=== PATIENT | female | born 1995 | race Caucasian/White ===

== ENCOUNTER 2021-05-27 19:05 | Inpatient (IN) | payer MEDICAID, SELFPAY ==
[2021-05-27 19:51] VITALS: BP 128/71; PULSE 95; O2SAT 98
[2021-05-27 20:13] VITALS: TEMP 37.7
[2021-05-27] MEDS: Lactated Ringers 1,000 ML 50 ML IV (20:17)
[2021-05-27] MEDS: 0.9% Normal Saline Single 100 ML IV.SOLN. INTRA-UTER (20:29)
--- NOTE | 2021-05-27 20:33 | PCM.HP.OB ---
HPI - General General Date of Admission: 05/27/21 HPI Narrative CHELI STEWART, is a 26 F @ 40.1 weeks who presents for IOL due to GDMA1- well controlled. Maternal Data Information Final BRODERICK: 05/26/21 Final BRODERICK Source: US <20 weeks Gestational age: 40.1 PFSH PFSH Allergy/AdvReac Type Severity Reaction Status Date / Time No Known Allergies Allergy Verified 05/27/21 20:31 Social History Smoking Status: Current every day smoker NST FHR Rate Baby A Baseline: 140 Variability:: Moderate Accelerations:: 15 x 15 Decelerations:: None NST Reactive:: Yes FHR Category:: Category I Uterine Activity:: occasional Vital Signs Vital Signs Vital Signs: 05/27/21 19:51 05/27/21 20:13 Temperature 99.9 F H Pulse Rate 95 Blood Pressure 128/71 H BP Systolic 128 BP Diastolic 71 Pulse Ox 98 Physical Exam Const alert and oriented x3 General Appearance: cooperative HEENT normocephalic GI GI Narrative: Gravid, non tender to palpation. OB / External & Speculum: external exam normal Extremity normal to inspection Skin no rashes or lesions noted Neuro oriented x3 and CN's II-XII intact bilaterally Psych Appearance: grossly normal Labs Labs Labs: Blood Type Pending Antibody Screen Pending Hct Pending Hgb Pending Neisseria gonorrhoeae DNA (JOEL) Negative (Negative) Assessment & Plan (1) 40 weeks gestation of : (2) Gestational diabetes: QUALIFIERS: Gestational diabetes mellitus control: diet-controlled Trimester: third trimester Qualified Code(s): O24.410 - Gestational diabetes mellitus in , diet controlled PLAN: Admit to L&D Montior FHR/TOCO Epidural if requested for pain Monitor VS Anticipate HOLDER/CYTOTEC, once holder out will start pitocin monitor BS per protocol
[2021-05-27 20:38] VITALS: BMI 35.3
[2021-05-27 20:43] LABS: Absolute Lymphocyte Count 2.28 X10^3/uL (0.83-4.51); Absolute Neutrophil Count 6.4 X10^3/uL (2.0-7.7); Basophil# 0.02 X10^3/uL; Basophil% 0.2 % (0-1); Eosinophil# 0.09 X10^3/uL; Hematocrit 35.2 % (37-47); Hemoglobin 11.4 g/dL (12.0-15.0); Lymphocyte # 2.28 X10^3/ul (0.83-4.51); Lymphocyte % 24.5 % (19-41); Mean Corp Hgb Conc 32.4 g/dL (32-36); Mean Corpuscular Hgb 28.7 pg (27.0-32.0); Mean Corpuscular Volume 88.7 fL (81-99); Mean Platelet Vol. 10.6 fl (6.2-12.0); Monocyte# 0.52 X10^3/uL; Monocyte% 5.6 % (0-10); NRBC Flagged by Analyzer 0 % (0-5); Neutrophil # 6.35 X10^3/uL (2.7-7.7); Neutrophil % 68.1 % (47-70); Platelet Count 173 K/mm3 (150-450); RBC Distribution Width CV 15.4 % (11.6-14.6); Red Blood Count 3.97 M/mm3 (4.2-5.4); White Blood Count 9.3 K/mm3 (4.4-11.0)
[2021-05-27 20:45] LABS: Bedside Glucose 113 mg/dL (74-106)
[2021-05-27] MEDS: miSOPROStol 25 MCG TABLET PO (20:52)
[2021-05-27] MEDS: CLARIFY ORDER NOTE (20:54)
[2021-05-27 21:55] LABS: Bedside Glucose 106 mg/dL (74-106)
[2021-05-27] MEDS: Acetaminophen 500 MG Tablet PO (21:56)
[2021-05-27 22:06] VITALS: BP 114/66; PULSE 81; TEMP 37.2; O2SAT 98
[2021-05-27] MEDS: Lactated Ringers 500 ML 999 ML IV (22:31)
[2021-05-27 22:46] LABS: Bedside Glucose 89 mg/dL (74-106)
[2021-05-28] VITALS (51 sets, daily range): BP systolic 98–144; BP diastolic 57–92; PULSE 67–218; RESP 18; TEMP 36.2–37.3; O2SAT 92–100
[2021-05-28] MEDS: Penicillin G 3,000,000 Units 50 ML 100 UNITS IV ×4 (01:41→14:30)
[2021-05-28] MEDS: Oxytocin 30 units/NS 500 ml 30 UNITS/500 ML IV.SOLN IV (01:42)
[2021-05-28 04:16] LABS: Bedside Glucose 98 mg/dL (74-106)
[2021-05-28] MEDS: Acetaminophen 500 MG Tablet PO (05:44)
[2021-05-28 06:06] LABS: Bedside Glucose 84 mg/dL (74-106)
[2021-05-28] MEDS: Ondansetron 4 MG/2 ML Vial IV (07:47)
[2021-05-28 08:41] LABS: Bedside Glucose 96 mg/dL (74-106)
[2021-05-28] MEDS: Lactated Ringers 1,000 ML 250 ML IV (09:06)
[2021-05-28] MEDS: Lactated Ringers 500 ML 999 ML IV (09:26)
--- NOTE | 2021-05-28 12:46 | PCM.PN.BLA ---
Progress Note Patient uncomfortable with contractions. Called to bedside. Cervix anterior lip, fetus +1station, bladder emptied via straight cath in usual sterile fashion. Patient attempted to push but I was unable to reduce anterior lip. Will allow to continue labor, discouraged pushing until complete. Continue nitrous oxide prn, may have epidural prn. EFW < 4500 gm, pelvis clinically adequate to expect vaginal delivery
[2021-05-28] MEDS: fentaNYL-bupivacaine (epidural) 100 ML BAG EPIDURAL (15:05)
[2021-05-28 15:06] LABS: Bedside Glucose 121 mg/dL (74-106)
[2021-05-28] MEDS: Ketorolac 30 MG/ML Syringe IV (16:45)
[2021-05-28] MEDS: Oxytocin 30 units/NS 500 ml 30 UNITS/500 ML IV.SOLN 334 UNITS IV (16:48)
--- NOTE | 2021-05-28 17:12 | EX.PCM.OBRPT ---
Assessment & Plan (1) Vacuum extractor delivery, delivered: (2) 40 weeks gestation of : (3) Second degree perineal laceration during delivery: Maternal Data Information Final BRODERICK: 05/26/21 Gestational age: 40 2/7 Vaginal Delivery Maternal Presentation Maternal Presentation: Medically Indicated Induction Type of Induction: Pitocin, Steinberg Bulb and Amniotomy Operative Information Date of Procedure: 05/28/21 Pre-Operative Diagnosis: GDM, labor Post-Operative Diagnosis: same, maternal exhaustion Surgery / Procedure Performed: Vacuum Assisted Vaginal Delivery (outlet) Type of Anesthesia: Epidural Special Medications: none Drain: - (none) Estimated Blood Loss: 400 Time of Delivery: 16:36 Findings Description of Procedure: I arrived and the patient was feeling a lot of pelvic pressure. Epidural was in. Bladder had just been straight cathed. Estimated weight was less than 4500 g and pelvis was that clinically adequate. Position was ELSY. There is a moderate amount of caput. She was labia with maternal pushing efforts. Station was plus 4 out of 5. The vacuum was applied to the flexion point. I created a vacuum to 550 mmHg. I pulled with 3 pulls and no pop offs. The vacuum was removed as the fetus was . The maternal pushing efforts then delivered the head. A vigorous [female] infant was delivered [ELSY] over [a second-degree perineal laceration]. [A loose nuchal cord ?1 was easily reduced.] The remainder the was delivered with maternal pushing and gentle traction only in less than 15 seconds. The Pitocin infusion was initiated for active management of the third stage. The cord was clamped and cut somewhat quickly as the was initially stunned.. The was attended to by the waiting nursing staff. The placenta was delivered spontaneously and intact. The cervix and vagina were intact. [The second-degree perineal laceration was repaired with 3-0 Vicryl suture in a running standard fashion.] Sponge counts were not correct and needle counts were correct. A vaginal sweep was completed by me. Because of the inability to locate 2 sponges, a pelvic x-ray was ordered. Presentation: ELSY Amniotic Membrane Rupture Type: Spontaneous Amniotic Fluid Description: Clear Placental Delivery Description: Spontaneous Placenta Disposition: [facility] Cord Vessel Description: 3 Vessels Cord Entanglement: Around neck x 1, loose Nuchal Cord Compression: Without compression Cord Gases: ABG and VBG A Gender: Female (kirstin) (1 minute): 8 (5 minute): 9 Delayed Cord Clamping: No Post Vaginal Delivery Medications Given After Delivery: IV Pitocin Episiotomy Description: None Laceration: 2nd degree Complication Complications: None
--- NOTE | 2021-05-28 17:25 | RAD_ITS ---
INDICATION: missing tapes from delivery EXAMINATION/TECHNIQUE: X-RAY - XR Pelvis 1 or 2 Views COMPARISON: None. FINDINGS: PELVIC BONES: No displaced fracture, destructive or sclerotic lesions. Note that overlapping bowel shadows may however obscure fine detail. Sacroiliac joints are unremarkable. No widening of the pubic symphysis. HIPS: The articular structures are unremarkable. No displaced fracture seen in this frontal view. SOFT TISSUES: No soft tissue swelling or gas.No radiodense foreign objects identified. RAD/Pelvis 1 or 2 Views IMPRESSION: No radiodense foreign objects identified. Electronically Signed: Oscar Barber MD at 17:54 EDT ,
[2021-05-28] MEDS: Acetaminophen 500 MG Tablet 1000 MG PO (18:50)
[2021-05-28] MEDS: Ibuprofen 600 MG Tablet PO (22:21)
[2021-05-29 03:10] VITALS: BP 99/61; PULSE 89; RESP 18; TEMP 36.3
[2021-05-29] MEDS: Acetaminophen 500 MG Tablet 1000 MG PO ×2 (03:21→09:17)
[2021-05-29 05:37] LABS: Hematocrit 33.2 % (37-47); Hemoglobin 10.9 g/dL (12.0-15.0); Mean Corp Hgb Conc 32.8 g/dL (32-36); Mean Corpuscular Hgb 28.8 pg (27.0-32.0); Mean Corpuscular Volume 87.6 fL (81-99); Mean Platelet Vol. 10.5 fl (6.2-12.0); Platelet Count 173 K/mm3 (150-450); RBC Distribution Width CV 15.3 % (11.6-14.6); RBC Distribution Width SD 48.7 fl (35.1-43.9); Red Blood Count 3.79 M/mm3 (4.2-5.4); White Blood Count 15.6 K/mm3 (4.4-11.0)
[2021-05-29] MEDS: Ibuprofen 600 MG Tablet PO ×2 (06:49→12:42)
--- NOTE | 2021-05-29 08:41 | PCM.PN.OB ---
Subjective Subjective Patient seen at bedside. Pain controlled. Ambulating and voiding without difficulty. with support. Desires discharge home after 24 hours. Objective Data Objective Data Vital Signs: Vital Signs Temp Pulse Resp BP Pulse Ox 97.3 F L 89 18 99/61 98 05/29/21 03:10 05/29/21 03:10 05/29/21 03:10 05/29/21 03:10 05/28/21 20:50 Oxygen Delivery Method Room Air Weight: 186 lb 12.8 oz Body Mass Index (BMI) 35.3 Intake & Output: Intake and Output for Last 24 Hours 05/27/21 05/28/21 05/29/21 23:59 23:59 23:59 Intake Total 674.17 / 674.17 5219.50 / 5219.50 Output Total 1450 / 1450 950 / 950 Balance 674.17 / 674.17 3769.50 / 3769.50 -950 / -950 Lab / Micro Data Result Diagrams: 05/29/21 05:30 Labs: Laboratory Results - last 24 hr 05/28/21 08:34: POC Glucose 96 05/28/21 14:15: POC Glucose 121 H 05/29/21 05:30: WBC 15.6 H, RBC 3.79 L, Hgb 10.9 L, Hct 33.2 L, MCV 87.6, MCH 28.8, MCHC 32.8, RDW Std Deviation 48.7 H, RDW Coeff of Tyler 15.3 H, Plt Count 173, MPV 10.5 Micro: Microbiology 05/27/21 20:19 Nasal Secretion SARS-CoV-2 Antigen (Rapid) - Final Radiography Diagnostic Testing: Radiology Impression Pelvis X-Ray 05/28/21 17:25 IMPRESSION: No radiodense foreign objects identified. Electronically Signed: Oscar Barber MD at 17:54 EDT , ROS Eyes Eyes: Denies blurry vision, change in vision or spots in vision ENT HEENT: Denies dizziness or headache(s) Cardiovascular Cardiovascular: Denies abdominal pain, chest pain or dyspnea Respiratory/Chest Respiratory/Chest: Denies cough, dyspnea, shortness of breath at rest or shortness of breath with exertion Gastrointestinal Gastrointestinal: Denies abdominal pain, diarrhea or vomiting Genitourinary Genitourinary: Denies change in urinary stream, difficulty urinating or dysuria Musculoskeletal Musculoskeletal: Reports none Integumentary Integumentary: Denies rash Neurologic Neurologic: Denies dizziness, headache(s), memory loss or weakness Physical Exam Const alert and no apparent distress General Appearance: cooperative and comfortable Exam Limitations: no limitations HEENT normocephalic Eyes General Eye: normal appearance of both eyes Neck full ROM General: normal visual inspection Chest Chest: symmetrical chest wall rise Resp normal respiratory effort and normal air movement Effort and Inspection: symmetric chest movement Auscultation: clear to auscultation bilaterally Cardio regular rate and regular rhythm GI normal to inspection, nondistended, normoactive bowel sounds Back/Spine normal ROM Extremity full ROM and no calf tenderness General Extremity: normal exam except as noted Skin no rashes or lesions noted Neuro CN's II-XII intact bilaterally Psych mental status grossly normal Assessment & Plan (1) Second degree perineal laceration during delivery: (2) Vacuum extractor delivery, delivered: (3) Care and examination of lactating mother: PLAN: PPD 1 VAVD Routine care Pain control support Discharge home with follow up in office 2 weeks
--- NOTE | 2021-05-29 08:43 | PCM.DC ---
Discharge Instructions Diet Discharge Diet: No restrictions Activity May resume sexual activity in: 6-8 weeks Weight Bearing Status: Weight bearing as tolerated Dressing / Incision Call your doctor if you observe: Fever of 101 or Higher, Inability to urinate, Using more than 1 pad per hour, Shortness of breath, Chest pain, Calf discomfort and Uncontrolled pain Follow Up Care When: 2 weeks virtual visit/ 6 weeks in office Test Results: Test results from this visit will be discussed in further detail at your follow-up appointment, if applicable. Discharge Plan Admission Admit Date/Time: 05/27/21 19:05 Primary Reason for Your Visit: Labor and Delivery Attending Provider: Vernell Terrazas Primary Care Provider: González Macias Discharge Orders/Prescriptions Prescriptions: Continued [id number] 1 mg Tablet 1 tab PO DAILY RF: 0 ferrous sulfate 27 mg iron Tablet 27 mg PO DAILY RF: 0 Discontinued docusate sodium [Colace] 100 mg Capsule 100 mg PO BID RF: 0 aspirin 81 mg Tablet 81 mg PO DAILY RF: 0 cranberry 500 mg Capsule 500 mg PO DAILY RF: 0 Pepcid Complete 10-800-165 mg Tablet,Chewable 1 tab PO DAILY PRN (Reason: Heartburn) RF: 0 Referrals / Follow Up: González Macias MD [Primary Care Provider] - Disposition Disposition (needs filled in before D/C Order can be placed): Home, Self Care
[2021-05-29 09:01] VITALS: BP 105/63; PULSE 82; RESP 18; TEMP 36.2
[2021-05-29 11:22] VITALS: BP 115/56; PULSE 84; RESP 16; TEMP 36.2
[2021-05-29] MEDS: Benzocaine/Lanolin/Aloe Vera 1 SPRAY EACH TOPICAL (12:42)
[2021-05-29 15:22] VITALS: BP 113/62; PULSE 77; RESP 18; TEMP 36.4
== END 2021-05-29 19:00 | disposition home or self-care (01) | DRG 560 ==
PROVIDERS: Advanced Practice Midwife; Obstetrics & Gynecology; Admitting Provider Obstetrics & Gynecology; PCP Family Medicine; Visit Provider Obstetrics & Gynecology
DX: O24.410 Gestational diabetes mellitus in pregnancy, diet controlled (principal); Z37.0 Single live birth; F17.210 Nicotine dependence, cigarettes, uncomplicated; O70.1 Second degree perineal laceration during delivery; Z3A.40 40 weeks gestation of pregnancy; O99.334 Smoking (tobacco) complicating childbirth; O69.81X0 Labor and delivery complicated by cord around neck, without compression, not applicable or unspecified
CPT/HCPCS: 59025; 59050; 72170; 82962; 85025; 85027; 86850; 86900; 86901; 87426; 99218; J7120; G0378; J2405

== ENCOUNTER 2023-02-18 08:15 | Day surgery (SDC) | payer MEDICAID, SELFPAY ==
--- NOTE | 2023-02-15 16:14 | PCM.HP.BLA ---
History and Physical Date of Admission: 02/18/23 HPI: The patient is a 28 year old female presenting for pre-operative visit. She is scheduled for Suction D&C, for 13 week size missed ab on 02/17/23. Procedure discussed along with risks, benefits and complications. Other alternatives discussed for management. Consent form signed? Yes. ? ? PAST MEDICAL HISTORY PAST MEDICAL HISTORY Diagnosis Date ? Antepartum anemia complicating in first trimester 11/21/2020 ? Asthma ? ? childhood -no attacks since age 9 ? Diet controlled gestational diabetes mellitus (GDM) in third trimester 03/16/2021 ? Wmyk-Uugki-Aoowklm disease ? ? ? PAST SURGICAL HISTORY PAST SURGICAL HISTORY Procedure Laterality Date ? TONSILLECTOMY AND ADENOIDECTOMY HX ? CURRENT MEDICATIONS Current Outpatient Medications Medication Sig Dispense Refill ? azithromycin (ZITHROMAX Z-EDE) 250 mg tablet ? 1 dose, Oral, Daily, # 6 tab(s), 0 Refill(s), 84.1 ? ? ? cephALEXin (KEFLEX) 500 mg capsule Take 1 capsule by mouth three times a day for 10 days. 30 capsule 0 ? multivitamin (CLASSIC ) 28 mg iron- 800 mcg tab(s) Take 1 tablet by mouth once daily. ? ? ? CRANBERRY EXTRACT (CRANBERRY ORAL) Take by mouth once daily. Sometimes forgets to take it ? ? ? No current facility-administered medications for this visit. ? ? ALLERGIES: Patient has no known allergies. ? PERSONAL HISTORY: SOCIAL HISTORY Social History ? Tobacco Use ? Smoking status: Never ? ? Passive exposure: Never ? Smokeless tobacco: Never Vaping Use ? Vaping Use: Never used Substance Use Topics ? Alcohol use: Not Currently ? Drug use: Never ? FAMILY HISTORY: FAMILY HISTORY FAMILY HISTORY Problem Relation Age of Onset ? Hypertension Mother ? ? Heart Father ? ? Diabetes Father ? ? other (syncope) Sister ? ? other (benign tumor eye) Brother ? ? COPD Maternal Grandmother ? ? other (chf) Maternal Grandmother ? ? Ovarian cancer Paternal Grandmother ? ? Neuropathy Paternal Grandfather ? ? Diabetes Paternal Grandfather ? ? ? REVIEW OF SYMPTOMS: GENERAL: denies fevers or chills ENDOCRINOLOGY: has not been on steroids Cardiology : denies palpitations or chest pain Respiratory: denies SOB or cough Hematology: denies history of prolonged bleeding or easy bruising or VTE Allergy: Denies history of personal or family history of allergy to anesthesia ? PHYSICAL EXAMINATION: ? VITALS: Blood pressure 118/68, weight 183 lb (83 kg), last menstrual period 10/29/2022, not currently . ? GENERAL: The patient is well nourished, well hydrated in no acute distress. , The patient is oriented to time, place, and person. NECK: Supple. No lynphadenopathy, normal thyroid, no thyromegaly. LUNGS: Clear to auscultation bilaterally. no wheezes, rhonchi or rales HEART: Regular rate and rhythm, Normal heart sounds, and No murmurs or gallops GENITALIA: Normal external genitalia, Urethral meatus normal, Bladder nontender, normal vagina and normal vaginal tone, normal cervix, normal uterus, size and consistency, normal adnexa without masses or tenderness, and perineum WNL ? TVUS done in office, intrauterine gestational sac with embryo 7.2 mm without cardiac actiivity visually or with color doppler. ? ? IMPRESSION: 15 week IUP, 13 week size missed ? PLAN: The risks/benefits/alternatives and personal involved for the planned suction D&C were reviewed with the patient. Her questions were answered to her satisfaction and she desires to proceed. Consent was signed. I reviewed with her postop instructions and expectations. ? Reivewed option for genetic testing, declines today. ? I have reviewed and updated past medical and surgical history, medications and allergies Assessment & Plan Assessment/Plan (1) Missed : (2) 16 weeks gestation of :
--- NOTE | 2023-02-18 | POC_PTH ---
PATHOLOGY RESULTS PATIENT: CHELI OCHOA LOC: [facility] U#:[id number] AGE/SX: 28/F ROOM: RE02/18/[address]: Dr. Cheli Terrazas MD : 1995 BED: DIS: 02/18/2023 SPEC #: [id number] RECD: 02/18/23 12:58 STATUS: DESIREE REEstiven #: [id number] LEIGHANN: 02/18/23 00:[address]: Cheli Terrazas DEPT: SURGICAL PATHOLOGY RECD BY: Brett Higginbotham ENTERED: 02/18/23 12:58 SP TYPE: PROD CONC Tissues: Product of conception, NOS Procedures: Surgery Specimen Level IV HEADER OPERATION: Suction dilation and curettage PRE-OP DIAGNOSIS: Missed , 16-weeks gestation TISSUE SUBMITTED: Products of conception MICROSCOPIC DIAGNOSIS Endometrium, curettage: Chorionic villi, decidualized stroma and trophoblastic cells. Fragments of macerated tissue. AM:kristel 02/21/2023 COMMENT The specimen is consistent with products of conception. Clinical correlation is suggested. MICROSCOPIC DESCRIPTION Slides are reviewed. GROSS DESCRIPTION Received in fixative is one container labeled with the patient's name and designated products of conception. The specimen consists of multiple pieces of placental tissue mixed with tissue consistent with extremity measuring in aggregate 9.0 x 10.0 x 2.0 cm. Film Editor tissue is submitted in three cassettes. / SJ:kristel 02/18/23 TC:5 CPT: 59692
--- OUTSIDE RECORDS SUMMARY | 2023-02-18 08:55 | XMS RPT_ITS | CCD ---
Author Name Unknown Address [address] [place] [address] Organization [facility] Care Team Providers Care Edge Drummer Name Role Phone Unavailable Primary Care Provider Unavailankit Chacon GARDE MANGER.Katrina SAHNI Primary Care Provider PHYSICIAN, NONE Primary Care Physician Unavailab Harpreet Alexander MD Primary Care Provider HARPREET SHANKAR Attending Unavailable HARPREET SHANKAR Primary Care Unavailable NOLING, KATRINA L Primary Care Unavailable TEJAL IRWIN Attending Unavailable NOCARA, KATRINA L Primary Care Unavailable ARLEEN BACA Attending Unavailable HARPREET SHANKAR Primary Care Unavailable DENISE COTTON Attending Unavailable NOLING, KATRINA L Primary Care Unavailable TEJAL IRWIN Attending Unavailable NOLING, KATRINA L Primary Care Unavailable MICHAEL PATEL Attending Unavailable BRENNA ALTAMIRANO Referring Unavailable NOLING, KATRINA L Primary Care Unavailable LG PETERS Attending Unavailable BRENNA ALTAMIRANO Attending Unavailable NOLING, KATRNIA L Primary Care Unavailable NOLING, KATRINA L Primary Care Unavailable LINH FINE Attending Unavail able HARPREET SHANKAR Primary Care Unavailable CHELI DILLARD Attending Unavailable CHELI DILLARD Referring Unavailable HARPREET SHANKAR Primary Care Unavailable HARPREET SHANKAR Primary Care Unavailable CHELI DILLARD Attending Unavailable BRENNA ALTAMIRANO Referring Unavailable NOLING, KATRINA L Primary Care Unavailable PHYSICIAN, NONE Primary Care Unavailable LUISA MAIER, DR IAN Tabares Attending BARBARA Ellison MD Attending Unavailable Medications Current Medications Medication Drug Class(es) Dates Sig (Normalized) Sig (Original) acetaminophen 325 mg / oxyCODONE hydrochloride 5 mg oral tablet (1 source) Opioid Agonist Start: 11-02-2022 End: 11-05-2022 take 1 tablet by mouth every six hours as needed for pain Percocet 5 mg-325 mg oral tablet Dose = 1 tab(s), Oral, q6h, PRN for pain, X 3 day(s), # 12 tab(s), 0 Refill(s), Flank pain, 84.1 Start Date: 11/02/22 Stop Date: 11/05/22 Status: Ordered amoxicillin 875 mg oral tablet (4 sources) Penicillin-class Antibacterial Start: 07-06-2022 End: 07-16-2022 take 1 tablet by mouth twice daily amoxicillin (AMOXIL) 875 mg tablet Indications: Strep pharyngitis Take 1 tablet by mouth twice daily for 10 days. 20 tablet 0 07/06/2022 07/16/2022 Active Completed/Discontinued Medications Medication Drug Class(es) Dates Sig (Normalized) Sig (Original) aspirin 81 mg delayed release oral tablet (7 sources) Platelet Aggregation Inhibitor, Nonsteroidal Anti-inflammatory Drug Start: 11-14-2020 take 1 tablet by mouth once daily aspirin, enteric coated (ECOTRIN LOW STRENGTH) 81 mg EC tablet Indications: Encounter for care in first trimester of first , Encounter for supervision of other normal , first trimester , 12 weeks gestation of Take 1 tablet by mouth once daily. 0 11/14/2020 Active Problems Active Problems Problem Classification Problem Date Documented Da te Episodic/Chronic Abdominal pain (1 source) Abdominal pain; Translations: [Unspecified abdominal pain] Onset: 11-02-2022 Episodic Administrative/social admission (1 source) Persons encountering health services in other specified circumstances; Translations: [Encounter to establish care with new doctor] Onset: 01-19-2023 Episodic Contraceptive and procreative management (3 sources) Patient encounter status; Translations: [Encounter for initial prescription of contraceptive pills] Episodic Diabetes or abnormal glucose tolerance complicating ; childbirth; or the puerperium (20 sources) Gestational diabetes mellitus, class A>1<; Translations: [Gestational diabetes mellitus in , diet controlled] Onset: 03-16-2021 Episodic Malposition; malpresentation (1 source) Finding of malposition of fetus; Translations: [Maternal care for malpresentation of fetus, unspecified, not applicable or unspecified] Episodic Mycoses (1 source) Candidiasis of vagina; Translations: [Vaginal yeast infection] Episodic Other complications of (8 sources) Anemia during - baby not yet delivered; Translations: [Anemia complicating , third trimester] Onset: 11-21-2020 03-16-2021 Chronic Other complications of (4 sources) Maternal obesity complicating , childbirth and the puerperium, antepartum; Translations: [Obesity complicating , first trimester] Onset: 01-07-2023 01-07-2023 Chronic Other complications of (4 sources) Heartburn; Translations: [Other specified related conditions, first trimester] Onset: 01-07-2023 01-07-2023 Episodic Other complications of (4 sources) Asthma; Translations: [Diseases of the respiratory system complicating , unspecified trimester] Onset: 01-07-2023 01-07-2023 Episodic Other complications of (4 sources) Delivery finding; Translations: [Outcome of delivery, unspecified] Onset: 01-07-2023 01-07-2023 Episodic Other complications of (1 source) Missed ; Translations: [Missed ] Onset: 02-11-2023 Episodic Other gastrointestinal disorders (1 source) Constipation; Translations: [Constipation, unspecified] Episodic Other nervous system disorders (1 source) Numbness of foot ; Translations: [Anesthesia of skin] 01-19-2023 Episodic Other and delivery including normal (20 sources) Normal ; Translations: [Encounter for supervision of other normal , first trimester] Onset: 11-14-2020 11-14-2020 Episodic Past or Other Problems Problem Classification Problem Date Documented Date Episodic/Chronic Other complications of (8 sources) Hyperemesis gravidarum; Translations: [Vomiting of , unspecified] Onset: 11-13-2020 12-15-2020 Episodic Other complications of (4 sources) Nausea and vomiting; Translations: [Vomiting of , unspecified] Onset: 11-13-2020 01-07-2023 Episodic Other connective tissue disease (20 sources) H/O: musculoskeletal disease; Translations: [Personal history of other diseases of the musculoskeletal system and connective tissue] Onset: 11-13-2020 11-13-2020 Episodic Results Test Name Value Interpretation Reference Range Facil ity Vital Signs Date Time Vital Sign Value Performing Clinician Facility 02-06-2023 11:30-0500 Blood Pressure Cuff Size BARBARA GALLARDO MD [facility] 02-06-2023 11:30-0500 Blood Pressure Location BARBARA GALLARDO MD [facility] 02-06-2023 11:30-0500 Blood Pressure Method BARBARA GALLARDO MD [facility] 02-06-2023 11:30-0500 Body temperature 98.06 [degF] BARBARA GALLARDO MD [facility] 02-06-2023 11:30-0500 Heart rate 87 /min BARBARA GALLARDO MD [facility] 02-06-2023 11:30-0500 Reason For Taking VItal Signs BARBARA GALLARDO MD [facility] 02-06-2023 11:30-0500 Respiratory rate 18 /min BARBARA GALLARDO MD [facility] 01-19-2023 13:10-0500 Body height 154.9 cm Harpreet Shankar MD Work Phone: [facility] 01-19-2023 13:10-0500 Body temperature 98.8 [degF] Harpreet Shankar MD Work Phone: [facility] 01-19-2023 13:10-0500 Body weight 83.78 kg Harpreet Shankar MD Work Phone: [facility] 01-19-2023 13:10-0500 Diastolic blood pressure 68 mm[Hg] Harpreet Shankar MD Work Phone: [facility] 01-19-2023 13:10-0500 Heart rate 108 /min Harpreet Shankar MD Work Phone: [facility] 01-19-2023 13:10-0500 SaO2% (BldA) [Mass fraction] 98 % Harpreet Shankar MD Work Phone: [facility] 01-19-2023 13:10-0500 Systolic blood pressure 114 mm[Hg] Harpreet Shankar MD Work Phone: [facility] 01-07-2023 08:31-0500 Body height 153.7 cm Brenna Haury GARDE MANGER.COLLECTION TECHNICIAN Work Phone: [facility] 01-07-2023 08:31-0500 Body weight 83.73 kg Brenna Haury GARDE MANGER.COLLECTION TECHNICIAN Work Phone: [facility] 01-07-2023 08:31-0500 Diastolic blood pressure 68 mm[Hg] Brenna Haury GARDE MANGER.COLLECTION TECHNICIAN Work Phone: [facility] 01-07-2023 08:31-0500 Systolic blood pressure 100 mm[Hg] Brenna Haury GARDE MANGER.COLLECTION TECHNICIAN Work Phone: [facility] 11-26-2022 14:26-0400 Body height 154.9 cm Linh Velez MD Work Phone: [facility] 11-26-2022 14:26-0400 Body weight 84.37 kg Linh Velez MD Work Phone: [facility] 11-26-2022 14:26-0400 Diastolic blood pressure 80 mm[Hg] Linh Velez MD Work Phone: [facility] 11-26-2022 14:26-0400 Systolic blood pressure 118 mm[Hg] Linh Velez MD Work Phone: [facility] 11-02-2022 18:34-0400 Diastolic Blood Pressure Non-Invasive [address] IAN MORAN MD [facility] 11-02-2022 18:34-0400 Heart rate 82 /min DR IAN MORAN MD [facility] 11-02-2022 18:34-0400 Respiratory rate 16 /min DR IAN MORAN MD [facility] 11-02-2022 18:34-0400 Systolic Blood Pressure Non-Invasive [address] IAN MORAN MD [facility] 11-02-2022 16:02-[address] IAN MORAN MD [facility] 11-02-2022 16:02-[address] IAN Betancourt MD [facility] 11-02-2022 16:02-0400 Body temperature 98.78 [degF] DR IAN MORAN MD [facility] 11-02-2022 16:02-0400 Body weight 84.[address] IAN MORAN MD [facility] 11-02-2022 16:02-0400 Diastolic Blood Pressure Non-Invasive [address] IAN MORAN MD [facility] 11-02-2022 16:02-0400 Heart rate 91 /min DR IAN MORAN MD [facility] 11-02-2022 16:02-0400 Respiratory rate 18 /min DR IAN MORAN MD [facility] 11-02-2022 16:02-0400 Systolic Blood Pressure Non-Invasive [address] IAN MORAN MD [facility] 09-13-2022 15:39-0400 Body temperature 98.91 [degF] Tejal Irwin MD Work Phone: [facility] 09-13-2022 15:39-0400 Body weight 86.91 kg Tejal Irwin MD Work Phone: [facility] 09-13-2022 15:39-0400 Diastolic blood pressure 81 mm[Hg] Tejal Irwin MD Work Phone: [facility] 09-13-2022 15:39-0400 Heart rate 80 /min Tejal Irwin MD Work Phone: [facility] 09-13-2022 15:39-0400 Respiratory rate 19 /min Tejal Irwin MD Work Phone: [facility] 09-13-2022 15:39-0400 SaO2% (BldA) [Mass fraction] 98 % Tejal Irwin MD Work Phone: [facility] 09-13-2022 15:39-0400 Systolic blood pressure 126 mm[Hg] Tejal Irwin MD Work Phone: [facility] 07-12-2022 14:49-0400 Body weight 84.37 kg Michael Dyko PA-C Work Phone: [facility] 07-12-2022 14:49-0400 Diastolic blood pressure 77 mm[Hg] Michael Dyko PA-C Work Phone: [facility] 07-12-2022 14:49-0400 Heart rate 88 /min Michael Dyko PA-C Work Phone: [facility] 07-12-2022 14:49-0400 Respiratory rate 17 /min Michael Dyko PA-C Work Phone: [facility] 07-12-2022 14:49-0400 SaO2% (BldA) [Mass fraction] 99 % Michael Dyko PA-C Work Phone: [facility] 07-12-2022 14:49-0400 Systolic blood pressure 136 mm[Hg] Michael Dyko PA-C Work Phone: [facility] 07-06-2022 09:05-0400 Body temperature 98.4 [degF] Tejal Irwin MD Work Phone: [facility] 07-06-2022 09:05-0400 Body weight 83.28 kg Tejal Irwin MD Work Phone: [facility] 07-06-2022 09:05-0400 Diastolic blood pressure 66 mm[Hg] Tejal Irwin MD Work Phone: [facility] 07-06-2022 09:05-0400 Heart rate 114 /min Tejal Irwin MD Work Phone: [facility] 07-06-2022 09:05-0400 Respiratory rate 18 /min Tejal Irwin MD Work Phone: [facility] 07-06-2022 09:05-0400 SaO2% (BldA) [Mass fraction] 98 % Tejal Irwin MD Work Phone: [facility] 07-06-2022 09:05-0400 Systolic blood pressure 116 mm[Hg] Tejal Irwin MD Work Phone: [facility] 12-27-2021 10:36-0500 Body temperature 99 [degF] Demetrius Treadwellehler PA-C Work Phone: [facility] 12-27-2021 10:36-0500 Body weight 76.2 kg Demetrius Treadwellehler PA-C Work Phone: [facility] 12-27-2021 10:36-0500 Diastolic blood pressure 71 mm[Hg] Demetrius Shelly PA-C Work Phone: [facility] 12-27-2021 10:36-0500 Heart rate 108 /min Demetrius Shelly PA-C Work Phone: [facility] 12-27-2021 10:36-0500 Respiratory rate 18 /min Demetrius Shelly PA-C Work Phone: [facility] 12-27-2021 10:36-0500 SaO2% (BldA) [Mass fraction] 98 % Demetrius Shelly PA-C Work Phone: [facility] 12-27-2021 10:36-0500 Systolic blood pressure 126 mm[Hg] Demetrius Bravo PA-C Work Phone: [facility] 11-30-2021 20:21-0400 Body temperature 97.7 [degF] Deana Perezughn DO Work Phone: [facility] 11-30-2021 20:21-0400 Body weight 76.2 kg Deana Navarro DO Work Phone: [facility] 11-30-2021 20:21-0400 Diastolic blood pressure 79 mm[Hg] Deana Navarro DO Work Phone: [facility] 11-30-2021 20:21-0400 Heart rate 80 /min Deana Navarro DO Work Phone: [facility] 11-30-2021 20:21-0400 Respiratory rate 18 /min Deana Navarro DO Work Phone: [facility] 11-30-2021 20:21-0400 SaO2% (BldA) [Mass fraction] 100 % Deana Navarro DO Work Phone: [facility] 11-30-2021 20:21-0400 Systolic blood pressure 140 mm[Hg] Deana Navarro DO Work Phone: [facility] 07-10-2021 10:56-0400 Body weight 75.75 kg Marcia Beckett APRN.CNM Work Phone: [facility] 07-10-2021 10:56-0400 Diastolic blood pressure 70 mm[Hg] Marcia Beckett APRN.CNM Work Phone: [facility] 07-10-2021 10:56-0400 Systolic blood pressure 108 mm[Hg] Marcia Beckett APRN.CNM Work Phone: [facility] 05-19-2021 11:18-0400 Body weight 84.82 kg Cheli Dillard MD Work Phone: [facility] 05-19-2021 11:18-0400 Diastolic blood pressure 74 mm[Hg] Cheli Dillard MD Work Phone: [facility] 05-19-2021 11:18-0400 Systolic blood pressure 110 mm[Hg] Cheli Dillard MD Work Phone: [facility] 05-19-2021 10:54-0400 Body weight 85 kg Luda Allen MD Work Phone: [facility] 05-19-2021 10:54-0400 Diastolic blood pressure 74 mm[Hg] Luda Allen MD Work Phone: [facility] 05-19-2021 10:54-0400 Systolic blood pressure 110 mm[Hg] Luda Allen MD Work Phone: [facility] 05-12-2021 10:33-0400 Body weight 82.1 kg Marcia Beckett GARDE MANGER.CNM Work Phone: [facility] 05-12-2021 10:33-0400 Diastolic blood pressure 68 mm[Hg] Marcia Beckett GARDE MANGER.CNM Work Phone: [facility] 05-12-2021 10:33-0400 Systolic blood pressure 110 mm[Hg] Marcia Beckett GARDE MANGER.CNM Work Phone: [facility] 05-04-2021 14:07-0400 Body height 154.9 cm Samy Delaney MD Work Phone: [facility] 05-04-2021 14:07-0400 Body weight 83.28 kg Samy Delaney MD Work Phone: [facility] 05-04-2021 14:07-0400 Diastolic blood pressure 76 mm[Hg] Samy Delaney MD Work Phone: [facility] 05-04-2021 14:07-0400 Systolic blood pressure 122 mm[Hg] Samy Delaney MD Work Phone: [facility] Encounters Encounter Date Encounter Type Care Provider Facility Start: 02-11-2023 End: 02-12-2023 ambulatory HARPREET SHANKAR Facility:[facility] Start: 02-08-2023 End: 02-09-2023 ambulatory CHELI DILLARD Facility:[facility] Start: 02-06-2023 End: 02-06-2023 Emergency department patient visit BARBARA GALLARDO MD Facility:[facility] Start: 02-06-2023 End: 02-06-2023 Emergency department patient visit BARBARA GALLARDO MD [facility] Start: 2023 End: 2023 ambulatory HARPREET SHANKAR Facility:[id number] Start: 01-19-2023 End: 01-19-2023 ambulatory HARPREET SHANKAR [facility] Start: 01-19-2023 End: 01-19-2023 Patient encounter procedure Harpreet Shankar MD Work Phone: [facility] Primary Care Procedures Date Procedure Procedure Detail Performing Clinician Start: 01-07-2023 Antibody screen BRENNA BRADLEY Plan of Treatment Date Care Activity Detail Author Start: 03-02-2031 Urine microalbumin profile [facility] Start: 01-20-2024 Annual PCP Team [employer] gin Disease Visit Annual PCP Team Chronic Disease Visit [facility] Start: 11-15-2023 PAP TESTING PAP TESTING [facility] Start: 11-15-2023 Screening for malign ant neoplasm of cervix Pap Testing [facility] Start: 01-07-2023 End: 04-08-2023 CARRIER SCREEN, STANDARD [facility] Work Phone: Immunizations Immunization Date Immunization Notes Care Provider Fa cility 12-04-2021 influenza virus vacc ine, unspecified formulation Demetrius Bravo PA-C Work Phone: [facility] 03-02-2021 tetanus toxoid, redu isabel diphtheria toxoid, and acellular pertussis vaccine, adsorbed Samy Delaney MD Work Phone: [facility] 06-26-2008 human papilloma viru s vaccine, quadrivalent Samy Delaney MD Work Phone: [facility] Work Phone: 02-23-2008 hepatitis A vaccine, pediatric/adolescent dosage, 2 dose schedule Samy Delaney MD Work Phone: [facility] Work Phone: 02-23-2008 human papilloma viru s vaccine, quadrivalent Samy Delaney MD Work Phone: [facility] Work Phone: 08-22-2006 hepatitis A vaccine, pediatric/adolescent dosage, 2 dose schedule Samy Delaney MD Work Phone: [facility] Work Phone: 08-22-2006 human papilloma viru s vaccine, quadrivalent Samy Delaney MD Work Phone: [facility] Work Phone: 08-22-2006 meningococcal polysaccharide (groups A, C, Y and W-135) diphtheria toxoid conjugate vaccine (MCV4P) Samy Delaney MD Work Phone: [facility] Work Phone: 08-22-2006 tetanus toxoid, redu isabel diphtheria toxoid, and acellular pertussis vaccine, adsorbed Samy Delaney MD Work Phone: [facility] Work Phone: 12-14-2004 influenza virus vacc ine, whole virus Samy Delaney MD Work Phone: [facility] Work Phone: Payers Date Payer Category Payer Medicaid [employer] [id number] 2022-Present [phone] [address] [place] [address] Medicaid [id number] 2022 Unknown [id number] 2022 Medicaid [id number] 2022 Private Health Insurance [employer] MEDICAID [facility] [id number] 2022-Present [address] [address] [place] [address] Medicaid [id number] 2021 Unknown [id number] 2021 Medicaid MEDICAID [facility] MEDICAID [id number] 2021-Present [phone] [address] [place] [address] Medicaid [id number] 1993 Unknown [id number] 1993 Unknown [id number] Social History Date Type Detail Facility Start: 11-04-2014 End: 09-03-2019 Tobacco smoking status KYIS Never smoked tobacco [facility] Start: 11-04-2014 End: 01-07-2023 Tobacco use and exposure Smokeless tobacco non-user [facility] Start: 05-04-2021 End: 01-19-2023 Alcohol intake Ex-drinker (finding) [facility] Start: 11-13-2020 Education 21 [facility] Start: 09-02-2020 [facility] Start: 1995 Sex Assigned At Not on file [facility] Start: 04-24-2021 End: 12-27-2021 Exposure to SARS-CoV-2 (event) Not sure [facility] Start: 09-13-2022 End: 01-07-2023 History of Social function [facility] Start: 09-13-2022 End: 01-07-2023 Tobacco use panel [facility] National Score (1-100), lower number is lower risk 88 [facility] Sex Assigned At Female [facility] NEGATED: Highlighted rowStart: NINF History of tobacco use Passive smoker [facility] Work Phone: Medical Equipment Procedure Code Equipment Code Equipment Origin al Text Equipment Identifier Dates Start: 03-16-2021 Goals Date Patient Goal Desired Activity /State Personal health goal Functional Status Date Assessment Result Facility 02-06-2023 Functional Status Ambulation in [place], Ambulation in Room [facility] 11-02-2022 Functional Status Activity Alexander mora Independent [facility] 11-02-2022 Functional Status ID band on, Call device within reach, Bed in low position, Wheels locked, Upper/Half-Length side-rails up, Visitor at bedside [facility] Mental Status Date Assessment Result Facility 02-06-2023 Mental Status Oriented x 4 [facility] 11-02-2022 Mental Status Orientation Oriented x 4 [facility] 11-02-2022 Mental Status [facility] Clinical Notes 03-04-2021 to 02-11-2023 Harpreet Shankar MD - 01/19/2023 1:20 PM Grey Mcclain (Jose), JOSE - 01/19/2023 1:13 PM ESTTelephone Encounter - Julissa Ferrer RN - 01/11/2023 10:20 AM ESTPatient InstructionsPatient Instructions Note Date & Type Note Facility 02-11-2023 Note HNO ID: [id number] Author: CHELI DILLARD MD Service: ? Author Type: Physician Type: Progress Notes Filed: 02/11/2023 15:48 Note Text: Cheli Dumont Jacqui is a 28 year old female who presents for problem visit for f/u slow heart beat of fetus. HPI: 28-year-old 2 para 1 who presents at 15 weeks by BRODERICK for follow-up slow heart rate. She was seen in the office 4 days ago and the heart tones were around 68 bpm. She still feeling nauseous. She denies any vaginal bleeding. She denies any fevers or chills. 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 History LMP: 10/29/2022 (Approximate), Age at Menarche: Age at First : Age at Menopause: Lead Housekeeper History Comments: Sexual Activity: Yes; Male Contraception: No contraception data on record PAST MEDICAL HISTORY Diagnosis Date Antepartum anemia complicating in first trimester 11/21/2020 Asthma childhood -no attacks since age 9 Diet controlled gestational diabetes mellitus (GDM) in third trimester 03/16/2021 Klen-Qjlty-Zejtwni disease PAST SURGICAL HISTORY Procedure Laterality Date TONSILLECTOMY AND ADENOIDECTOMY HX FAMILY HISTORY Problem Relation Age of Onset Hypertension Mother Heart Father Diabetes Father other (syncope) Sister other (benign tumor eye) Brother COPD Maternal Grandmother other (chf) Maternal Grandmother Ovarian cancer Paternal Grandmother Neuropathy Paternal Grandfather Diabetes Paternal Grandfather Social History Tobacco Use Smoking status: Never Passive exposure: Never Smokeless tobacco: Never Vaping Use Vaping Use: Never used Substance Use Topics Alcohol use: Not Currently Drug use: Never Current Outpatient Medications Medication Sig azithromycin (ZITHROMAX Z-EDE) 250 mg tablet 1 dose, Oral, Daily, # 6 tab(s), 0 Refill(s), 84.1 cephALEXin (KEFLEX) 500 mg capsule Take 1 capsule by mouth three times a day for 10 days. multivitamin (CLASSIC ) 28 mg iron- 800 mcg tab(s) Take 1 tablet by mouth once daily. CRANBERRY EXTRACT (CRANBERRY ORAL) Take by mouth once daily. Sometimes forgets to take it No current facility-administered medications for this visit. Allergies As of Date: 02/11/2023 (No Known Allergies) Fully Assessed 02/11/2023 REVIEW OF SYSTEMS Expanded ROS: GENERAL: No weight loss, malaise or fevers RESPIRATORY: Negative for cough, hemoptysis, wheezing, COPD, dyspnea or shortness of breath CARDIOVASCULAR: Negative for chest pain, leg swelling, hypertension, CHF or palpitations Allergies and current medication updated:Yes EXAM: BP 118/68 Wt 183 lb (83.0kg) LMP 10/29/2022 GENERAL: pleasant, female in no apparent distress PELVIC: external genitalia normal, normal Bartholin's glands, urethra, [place]'s glands, no vulvar lesions, no cervical lesions, good vaginal support, physiologic discharge present, normal appearing perineal body and perianal region BIMANUAL: no adnexal masses, non-tender, and uterus 12 weeks size, mobile, nontender. Transabdominal ultrasound was performed which revealed an embryo without cardiac activity either visually or via Doppler color-flow. [place]-rump length is consistent with approximately 7.2 cm which is approximately 13 weeks size. Cardiac activity was easily visualized 3 days ago in the office. ASSESSMENT AND PLAN: 15-week by gestational age missed . 13 weeks size by ultrasound today. Risk benefits and alternatives to various options were discussed with patient, recommendation for suction DANDC were reviewed and patient desires to proceed. Consent was signed. Her questions were answered to her satisfaction. Bleeding precautions reviewed. Reviewed option for genetic screening. Had NIPT drawn. Will wait for that but does not desire further chromosome analysis and products of conception. Cheli Dillard MD [facility] 02-06-2023 Hospital Discharg e instructions Patient Education 02/06/2023 12:05:34 Abscess, Incision And Drainage Abscess (Incision & Drainage) An abscess is sometimes called a boil. It happens when bacteria get trapped under the skin and start to grow. Pus forms inside the abscess as the body responds to the bacteria. An abscess can happen with an insect bite, ingrown hair, blocked oil gland, pimple, cyst, or puncture wound. Your healthcare provider has drained the pus from your abscess. If the abscess pocket was large, your healthcare provider may have put in gauze packing. Your provider will need to remove it on your next visit. He or she may also replace it at that time. You may not need antibiotics to treat a simple abscess, unless the infection is spreading into the skin around the wound (cellulitis). The wound will take about 1 to 2 weeks to heal, depending on the size of the abscess. Healthy tissue will grow from the bottom and sides of the opening until it seals over. Home care These tips can help your wound heal: The wound may drain for the first 2 days. Cover the wound with a clean dry dressing. Change the dressing if it becomes soaked with blood or pus. If a gauze packing was placed inside the abscess pocket, you may be told to remove it yourself. You may do this in the shower. Once the packing is removed, you should wash the area in the shower, or clean the area as directed by your provider. Continue to do this until the skin opening has closed. Make sure you wash your hands after changing the packing or cleaning the wound. If you were prescribed antibiotics, take them as directed until they are all gone. You may use acetaminophen or ibuprofen to control pain, unless another pain medicine was prescribed. If you have liver disease or ever had a stomach ulcer, talk with your doctor before using these medicines. Follow-up care Follow up with your healthcare provider, or as advised. If a gauze packing was put in your wound, it should be removed in 1 to 2 days. Check your wound every day for any signs that the infection is getting worse. The signs are listed below. When to seek medical advice Call your healthcare provider right away if any of these occur: Increasing redness or swelling Red streaks in the skin leading away from the wound Increasing local pain or swelling Continued pus draining from the wound 2 days after treatment Fever of 100.4 F (38 C) or higher, or as directed by your healthcare provider Boil returns when you are at home [phone] [employer]. [address] [place] [address]. All rights reserved. This information is not intended as a substitute for professional medical care. Always follow your healthcare professional's instructions. Follow Up Care 02/06/2023 11:18:10 With:TOMMY CORTÉS DO Address: [address] [place] [id number] [phone] When:2-4 days [facility] 02-06-2023 Emergency department Discharge summary Discharge Instructions Thank you for allowing [place] to assist you with your healthcare needs. The following is important discharge information regarding your hospital visit. Diagnosis from Today's Visit Boil What to Do Next Instructions from Your Care Team No qualifying data available. Post Acute Orders No qualifying data available. You Need to Schedule the Following Appointments Follow Up with TOMMY CORTÉS DO When Within 2-4 days Where: [address] [place] [phone] Allergies NKA Medications Please ask your primary doctor or pharmacist before taking any other medication not listed, including over the counter drugs, herbal medications, vitamins and or supplements as they may interact with your home medications. What How Much When Instructions Last Dose New azithromycin (Zithromax Z-Ede 250 mg oral tablet) 1 dose by mouth Every day Duration: 5 Days Printed Prescription Please take this list to your next doctor s visit. Bring all medications you take, including over the counter medications, herbals and other supplements with you to your doctor s visit. Patients and families are reminded to discard old lists and to update any records with all medication providers or retail pharmacies. Education Materials Abscess (Incision & Drainage) An abscess is sometimes called a boil. It happens when bacteria get trapped under the skin and start to grow. Pus forms inside the abscess as the body responds to the bacteria. An abscess can happen with an insect bite, ingrown hair, blocked oil gland, pimple, cyst, or puncture wound. Your healthcare provider has drained the pus from your abscess. If the abscess pocket was large, your healthcare provider may have put in gauze packing. Your provider will need to remove it on your next visit. He or she may also replace it at that time. You may not need antibiotics to treat a simple abscess, unless the infection is spreading into the skin around the wound (cellulitis). The wound will take about 1 to 2 weeks to heal, depending on the size of the abscess. Healthy tissue will grow from the bottom and sides of the opening until it seals over. Home care These tips can help your wound heal: The wound may drain for the first 2 days. Cover the wound with a clean dry dressing. Change the dressing if it becomes soaked with blood or pus. If a gauze packing was placed inside the abscess pocket, you may be told to remove it yourself. You may do this in the shower. Once the packing is removed, you should wash the area in the shower, or clean the area as directed by your provider. Continue to do this until the skin opening has closed. Make sure you wash your hands after changing the packing or cleaning the wound. If you were prescribed antibiotics, take them as directed until they are all gone. You may use acetaminophen or ibuprofen to control pain, unless another pain medicine was prescribed. If you have liver disease or ever had a stomach ulcer, talk with your doctor before using these medicines. Follow-up care Follow up with your healthcare provider, or as advised. If a gauze packing was put in your wound, it should be removed in 1 to 2 days. Check your wound every day for any signs that the infection is getting worse. The signs are listed below. When to seek medical advice Call your healthcare provider right away if any of these occur: Increasing redness or swelling Red streaks in the skin leading away from the wound Increasing local pain or swelling Continued pus draining from the wound 2 days after treatment Fever of 100.4 F (38 C) or higher, or as directed by your healthcare provider Bokristin returns when you are at home [phone] [employer]. [address] [place] [address], [place] [address]. All rights reserved. This information is not intended as a substitute for professional medical care. Always follow your healthcare professional's instructions. Additional Information VACCINATE! IT SAVES LIVES! Members of the community who have not yet received the COVID-19 vaccine and would like to receive it can visit one of [facility] vaccine clinics. There are many vaccine clinic locations within the [facility]. For locations and available times, please visit www.[email or web address] .gov/. It is important to note that some COVID mobile vaccine clinics are held outdoors and may be canceled in rainy or stormy conditions. To learn more about pediatric vaccinations (ages 5-11), we invite you to visit the [facility] webpage. https://www.[employer].org/ [email or web address]-Oaypk-Inqadfsfkog-Fr gqynzthg-Zhaaq-Nnjsoopit.html To learn more about the COVID-19 vaccine, we invite you to visit the CDC website for a list of frequently asked questions. https://www.cdc.gov/coronavirus /2019-ncov/vaccines/faq.html [place] StatusPage Patient Portal Access Instructions: Stay connected with your healthcare team and access your personal medical information anytime with the [employer] Patient Portal. If you would like a full copy of your medical records please contact the [facility] Medical Records Department Tuesday through Tuesday between 8a.m. and 4:30p.m. Please follow the directions below to access the portal: 1.Access the email account you provided upon registration to the hospital.2.Look for an invitation email from [facility].3.Open the email and access the invitation link: Accept Invitation to [facility]4.Fill in the required quiroz to create your account. Sign into www.[email or web address] with your username and password that you created in the above steps to stay up to date. You can then view a summary of results, a summary of your visits, and the ability to download your summaries to your computer or send the information securely to a physician. Remember that your healthcare information is confidential, so carefully consider who you will allow to register on the [employer] Patient Portal for access to your information. You can also access the [employer] Patient Portal on the [employer]. Simply click on Health Records under Health Data and then click on the [employer] logo. HOW TO SAFELY DISPOSE OF PRESCRIPTION MEDICATIONS Please use one of the following methods to safely dispose of your unused medications. 1.Use a drug disposal kit: the drug disposal pouch allows you to safely discard your old and unused drugs. Ask your nurse to give you one when you are discharged.2.Visit a local take-back location: Many local pharmacies and police departments have programs that collect old and unwanted prescription drugs. Call your local pharmacy or go to http://[employer]/1S1Kw1j to find one close to you.3.Make use of household items: Use cat litter or old coffee grounds to dispose medications if other options are not available. Mix your drugs with these household products, seal them in an airtight container and throw it into the garbage. Call [facility]: [phone] to be sure your drugs can be disposed of in this way. Some medicines may require a different approach.4.Never flush your medications down the toilet. IF YOU HAVE BEEN PRESCRIBED AN OPIOIDS FOR PAIN If you have been prescribed an opioid (such as hydrocodone, oxycodone or morphine), it is critical to understand the possible side effects and risks of opioid pain medications. Even when taken as directed, opioids can have several side effects including: Tolerance, meaning you might need to take more of a medication for the same pain relief. Nausea, vomiting and/or constipation. Sleepiness, dizziness, dry mouth, confusion, depression or itching. Physical dependence, meaning you have withdrawal symptoms when a medication is stopped ? this can develop within a few days. KNOW YOUR RESPONSIBILITIES It is important to know exactly how much and how often to take the opioid pain medications you are prescribed. Never take opioids in higher amounts or more often than prescribed. Do not combine opioids with alcohol or other drugs that cause drowsiness, such as benzodiazepines, also known as benzos, including diazepam and alprazolam, muscle relaxants or sleep aids. Never sell or share prescription opioids. This is illegal. Store opioids in a secure place and out of reach of others (including children, family, friends and visitors). The last page(s) of this document has been signed and retained as a CHART COPY Signatures Patient Education Materials Abscess, Incision And Drainage Medication Leaflets My discharge plan and instructions have been reviewed and explained to me and I,CHELI OCHOA understand my current condition and have read and understand these discharge instructions. I have received a written copy of the plan/instructions. If I have questions, I am aware that I should contact my doctor. 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 Author Type: Nurse Practitioner Type: Progress Notes Filed: 2023 8:58 PM Note Text: Cheli Ochoa is a 28 year old female who presents with Trauma (Possible insect bite top of left foot by 2 and 3rd toe area red and painful 1 week) Location: left foot between 2nd and 3rd digit When did it start: 1 week ago Redness: Yes Red streak leading out of area: No Swelling: Yes Pain: Yes Drainage: No Fever: No Nausea or vomiting: No No diabetic Patient is 13 weeks PAST MEDICAL HISTORY Diagnosis Date Antepartum anemia complicating in first trimester 11/21/2020 Asthma childhood -no attacks since age 9 Diet controlled gestational diabetes mellitus (GDM) in third trimester 03/16/2021 Rcik-Snzxq-Fjmfyxv disease ACTIVE PROBLEM LIST Nausea and Vomiting During History of Qbgt-Amhvl-Kulrosf Disease History of Gestational Diabetes With Uncertain Dates in First Trimester Supervision of Normal 10 Weeks Gestation of Heartburn During in First Trimester Asthma During Forceps Or Vacuum Extractor Delivery Obesity Affecting in First Trimester Current Outpatient Medications Medication Sig Dispense Refill multivitamin (CLASSIC ) 28 mg iron- 800 mcg tab(s) Take 1 tablet by mouth once daily. CRANBERRY EXTRACT (CRANBERRY ORAL) Take by mouth once daily. Sometimes forgets to take it No current facility-administered medications for this visit. Social History Tobacco Use Smoking status: Never Passive exposure: Never Smokeless tobacco: Never Vaping Use Vaping Use: Never used Substance Use Topics Alcohol use: Not Currently Drug use: Never Alcohol Use: Not Currently Tobacco Use: Never FAMILY HISTORY Problem Relation Age of Onset Hypertension Mother Heart Father Diabetes Father other (syncope) Sister other (benign tumor eye) Brother COPD Maternal Grandmother other (chf) Maternal Grandmother Ovarian cancer Paternal Grandmother Neuropathy Paternal Grandfather Diabetes Paternal Grandfather Review of Systems Constitutional: Negative for chills and fever. HENT: Negative for sore throat. Respiratory: Negative for shortness of breath. Gastrointestinal: Negative for abdominal pain. Musculoskeletal: Negative for joint pain. Skin: Negative for itching and rash. Possible insect bite top of left foot by 2 and 3rd toe area red and painful 1 week) Neurological: Negative for dizziness and headaches. BP 120/79 Pulse 82 Temp 97.7 Resp 17 Wt 187 lb (84.8kg) SpO2 99% LMP 10/29/2022 Physical Exam Vitals and nursing note reviewed. Constitutional: Appearance: Normal appearance. HENT: Head: Normocephalic and atraumatic. Mouth/Throat: Mouth: Mucous membranes are moist. Pharynx: Oropharynx is clear. Eyes: Conjunctiva/sclera: Conjunctivae normal. Cardiovascular: Rate and Rhythm: Normal rate and regular rhythm. Pulmonary: Effort: Pulmonary effort is normal. Breath sounds: Normal breath sounds. Abdominal: General: Abdomen is flat. Palpations: Abdomen is soft. Musculoskeletal: Cervical back: Normal range of motion and neck supple. Skin: General: Skin is warm and dry. Comments: top of left foot by 2 and 3rd toe Area erythematous, tender to palpation, + induration, no drainage. No red streak leading out of area Neurological: General: No focal deficit present. Mental Status: She is alert. Mental status is at baseline. Psychiatric: Mood and Affect: Mood normal. Behavior: Behavior normal. ASSESSMENT/PLAN: 1. Cellulitis of skin - ICD9: 682.9, ICD10: L03.90 - CEPHALEXIN 500 MG CAPSULE Signs and symptoms consistent with cellulitis. No evidence of sepsis, abscess, or other complications. Plan is for antibiotic therapy and symptomatic support at home. Plan to follow with PCP in 2-5 days . Patient advised to return to clinic or go to the ED if symptoms change or worsen. Denise Cotton APRN.[facility] 01-19-2023 Note HNO ID: [id number] Author: Harpreet Shankar MD Service: ? Author Type: Physician Type: Progress Notes Filed: 01/19/2023 2:20 PM Note Text: [id number] [place] [address] Date of Evaluation: 01/19/2023 Patient Name: Cheli Ochoa : 1995 Chief Complaint: Patient presents with: [facility] Nursing Intake: Nursing Notes: Grey Hall (Jose)JOSE 01/19/2023 1:17 PM Signed Cheli Ochoa is a 27 year old female who presents for [facility] Care Patient has no concerns, patient is 11weeks and 5 days Grey Hall MA Subjective Ms. Ochoa is a 27 year old female who presents with the following complaint(s): HPI This patient presents as a new patient to [facility]. They are new to the office and new to me. She is 11 weeks , being followed by [facility]. This is her second . She is a . 1 concern she has today is numbness in her feet, started about a week ago on the soles of her feet. Typically this happens either the evening after or the morning after she works a 12-hour shift. The last for an hour or so and then go away typically when her feet are up and elevated is when she feels it. She is currently employed 312-hour shifts at a [employer] as a [employer]. She is in a relationship with the father of her current child, trying to work with her ex- around childcare and visitation for her [id number]. She follows with [facility], she does not smoke may have 1 or 2 drinks a year, and has no drug use. She peaked weight at about 250 pounds a few years ago but lost 90 pounds prior to her first , she been maintaining between 160 and 170 prepartum in the interim. She would like to be somewhat less than. Was exercising on a regular basis, has had to cut back on that due to childcare issues and time. Review of Systems See hpi Social History Tobacco Use Smoking status: Never Passive exposure: Never Smokeless tobacco: Never Vaping Use Vaping Use: Never used Substance Use Topics Alcohol use: Not Currently Drug use: Never Current Outpatient Medications Medication Sig multivitamin (CLASSIC ) 28 mg iron- 800 mcg tab(s) Take 1 tablet by mouth once daily. CRANBERRY EXTRACT (CRANBERRY ORAL) Take by mouth once daily. Sometimes forgets to take it No current facility-administered medications for this visit. I have confirmed and edited as necessary the chief complaint, medications, past medical, family and social histories obtained by others. Objective BP 114/68 Pulse 108 Temp 98.8 Ht 5' 1 (1.55m) Wt 184 lb 11.2 oz (83.8kg) SpO2 98% LMP 10/29/2022 BMI 34.92 kg/(m2). Physical Exam Vitals and nursing note reviewed. Constitutional: General: She is not in acute distress. Appearance: Normal appearance. She is not ill-appearing. HENT: Head: Normocephalic and atraumatic. Right Ear: Hearing, tympanic membrane, ear canal and external ear normal. Left Ear: Hearing, tympanic membrane, ear canal and external ear normal. Nose: Nose normal. Mouth/Throat: Mouth: Mucous membranes are moist. Pharynx: Oropharynx is clear. Eyes: General: Lids are normal. Vision grossly intact. Extraocular Movements: Extraocular movements intact. Conjunctiva/sclera: Conjunctivae normal. Pupils: Pupils are equal, round, and reactive to light. Neck: Vascular: No carotid bruit. Cardiovascular: Rate and Rhythm: Normal rate and regular rhythm. Pulses: Normal pulses. Heart sounds: Normal heart sounds. Pulmonary: Effort: Pulmonary effort is normal. Breath sounds: Normal breath sounds. Abdominal: General: Bowel sounds are normal. Palpations: Abdomen is soft. Musculoskeletal: General: Normal range of motion. Cervical back: Normal range of motion and neck supple. No tenderness. Skin: General: Skin is warm and dry. Capillary Refill: Capillary refill takes less than 2 seconds. Neurological: General: No focal deficit present. Mental Status: She is alert and oriented to person, place, and time. Mental status is at baseline. Psychiatric: Attention and Perception: Attention normal. Mood and Affect: Mood normal. Behavior: Behavior normal. Data Reviewed: Most recent labs ASSESSMENT/PLAN: 1. Encounter to establish care with new doctor - ICD9: V65.8, ICD10: Z76.89 (primary diagnosis) 2. Depression screening - ICD9: V79.0, ICD10: Z13.31 - DEPRESSION SCREENING/ASSESSMENT 3. History of gestational diabetes - ICD9: V12.21, ICD10: Z86.32 Will make sure we monitor this . 4. Numbness of foot - ICD9: 782.0, ICD10: R20.0 Although there is no edema, most likely related to fluid shift in would recommend new shoes for work and follow-up with OB. Harpreet Shankar MD Return in about 1 year (around 01/20/2024) for wellness exam. Discussed the above wi (more content not included)... [facility] 01-19-2023 History of Presen t illness Narrative Images from the original note were not included. [facility] Primary [id number] [place] [address] Date of Evaluation: 01/19/2023 Patient Name: Cheli Ochoa : 1995 Chief Complaint: Patient presents with: Establish Care Nursing Intake: Nursing Notes: Grey Hall Ma, MA 01/19/2023 1:17 PM Signed Cheli Ochoa is a 27 year old female who presents for Establish Care Patient has no concerns, patient is 11weeks and 5 days Grey Hall MA Subjective Ms. Ochoa is a 27 year old female who presents with the following complaint(s): HPI This patient presents as a new patient to [facility]. They are new to the office and new to me. She is 11 weeks , being followed by [facility]EASE SPECIALIST. This is her second . She is a . 1 concern she has today is numbness in her feet, started about a week ago on the soles of her feet. Typically this happens either the evening after or the morning after she works a 12-hour shift. The last for an hour or so and then go away typically when her feet are up and elevated is when she feels it. She is currently employed 312-hour shifts at a [employer] as a [employer]. She is in a relationship with the father of her current child, trying to work with her ex- around childcare and visitation for her [id number]. She follows with [facility], she does not smoke may have 1 or 2 drinks a year, and has no drug use. She peaked weight at about 250 pounds a few years ago but lost 90 pounds prior to her first , she been maintaining between 160 and 170 prepartum in the interim. She would like to be somewhat less than. Was exercising on a regular basis, has had to cut back on that due to childcare issues and time. Review of Systems See hpi Social History Tobacco Use Smoking status: Never Passive exposure: Never Smokeless tobacco: Never Vaping Use Vaping Use: Never used Substance Use Topics Alcohol use: Not Currently Drug use: Never Current Outpatient Medications Medication Sig multivitamin (CLASSIC ) 28 mg iron- 800 mcg tab(s) Take 1 tablet by mouth once daily. CRANBERRY EXTRACT (CRANBERRY ORAL) Take by mouth once daily. Sometimes forgets to take it No current facility-administered medications for this visit. I have confirmed and edited as necessary the chief complaint, medications, past medical, family and social histories obtained by others. Objective BP 114/68 Pulse 108 Temp 98.8 Ht 5' 1 (1.55m) Wt 184 lb 11.2 oz (83.8kg) SpO2 98% LMP 10/29/2022 BMI 34.92 kg/(m^2). Physical Exam Vitals and nursing note reviewed. Constitutional: General: She is not in acute distress. Appearance: Normal appearance. She is not ill-appearing. HENT: Head: Normocephalic and atraumatic. Right Ear: Hearing, tympanic membrane, ear canal and external ear normal. Left Ear: Hearing, tympanic membrane, ear canal and external ear normal. Nose: Nose normal. Mouth/Throat: Mouth: Mucous membranes are moist. Pharynx: Oropharynx is clear. Eyes: General: Lids are normal. Vision grossly intact. Extraocular Movements: Extraocular movements intact. Conjunctiva/sclera: Conjunctivae normal. Pupils: Pupils are equal, round, and reactive to light. Neck: Vascular: No carotid bruit. Cardiovascular: Rate and Rhythm: Normal rate and regular rhythm. Pulses: Normal pulses. Heart sounds: Normal heart sounds. Pulmonary: Effort: Pulmonary effort is normal. Breath sounds: Normal breath sounds. Abdominal: General: Bowel sounds are normal. Palpations: Abdomen is soft. Musculoskeletal: General: Normal range of motion. Cervical back: Normal range of motion and neck supple. No tenderness. Skin: General: Skin is warm and dry. Capillary Refill: Capillary refill takes less than 2 seconds. Neurological: General: No focal deficit present. Mental Status: She is alert and oriented to person, place, and time. Mental status is at baseline. Psychiatric: Attention and Perception: Attention normal. Mood and Affect: Mood normal. Behavior: Behavior normal. Data Reviewed: Most recent labs ASSESSMENT/PLAN: 1. Encounter to establish care with new doctor - ICD9: V65.8, ICD10: Z76.89 (primary diagnosis) 2. Depression screening - ICD9: V79.0, ICD10: Z13.31 - DEPRESSION SCREENING/ASSESSMENT 3. History of gestational diabetes - ICD9: V12.21, ICD10: Z86.32 Will make sure we monitor this . 4. Numbness of foot - ICD9: 782.0, ICD10: R20.0 Although there is no edema, most likely related to fluid shift in would recommend new shoes for work and follow-up with OB. Harpreet Shankar MD Return in about 1 year (around 01/20/2024) for wellness exam. Discussed the above with the patient using shared decision making. The patient is in agreement with the diagnostic and treatment plans. Patient to follow-up as advised or sooner if problem worsens or does not resolve. documented in this encounter [facility] 01-19-2023 Nurse Note Cheli D Jacqui is a 27 year old female who presents for Establish Care Patient has no concerns, patient is 11weeks and 5 days [place] MA documented in this encounter [facility] 01-11-2023 Miscellaneous Notes 1st risk assessment form submitted 01/11/23 Julissa Ferrer RN documented in this encounter [facility] 01-07-2023 Note HNO ID: [id number] Author: Brenna Altamirano APRN.COLLECTION TECHNICIAN Service: ? Author Type: Nurse Practitioner Type: Progress Notes Filed: 01/07/2023 10:17 AM Note Text: OB point of care ultrasound was performed. See imaging tab for details. INITIAL OB ASSESSMENT OB Provider: Cheli Dillard MD HPI: Bibiana is a 27 year old White here to establish Obstetrical Care. Patient's last menstrual period was 10/29/2022 (approximate). from OB Dating Form. Cycles regular was planned Complaints: None OB History T1 L1 SAB0 IAB0 Ectopic0 Multiple0 Live Births1 Previous history: Prior : never History of 4th degree laceration: No History of shoulder dystocia: No History of Hypertensive disorders including pre-eclampsia, chronic hypertension or gestational hypertension: No History of gestational diabetes: Yes Patient's Risk Screening for delivery: Have you had a prior cash between 20w and 36w6d?: No MEDICAL/PSYCHOSOCIAL HISTORY: History of hemorrhage or bleeding concerns: No Thyroid Disease: No History of chronic hypertension: No History of pre-existing diabetes: No ABO/RH(D) Date Value Ref Range Status 12/15/2020 A POSITIVE Final BMI 35.46 kg/(m2) History of abnormal pap: No Prior treatment for cervical dysplasia: N/A. History of STDs: None Tobacco use: No Caffeine use: Yes, 1 cup per day Drug use: No Alcohol use: No Multivitamin with Folic acid: Yes Moravian or heritage: No Would refuse blood transfusion if medically necessary: No Are you currently employed? Yes, Occupation: [employer] Do you have any history of depression, anxiety, PTSD, eating disorders or other mood problems: No Do you have any safety concerns or history of traumatic events that you would like to discuss with your provider: No SDOH Screening: How often does this describe you? I don't have enough money to pay my bills: Never Within the past 12 months, have you worried that your food would run out before you had money to buy more: Never In the past 12 months, has lack of reliable transportation kept you from going to medical appointments or work, or from keeping things needed for daily living: Never In the past 12 months, have you had any concerns about having a place to live, or about the condition or quality of your housing: Never Are there any cultural or spiritual needs we should be aware of: No Depression/Anxiety Screening: denies symptoms of depression. OB Depression and Anxiety Screening- This Encounter (since 01/06/2023) Over the past 2 weeks have you felt down, depressed, or hopeless? Negative Over the past two weeks, have you felt little interest or pleasure in doing things?? Negative Feeling nervous, anxious or on edge 0-Not at all Not being able to stop or control worrying 0-Not al all Anxiety Pre-Screening Total (If >/= 3 additional questions will be reviewed) 0 Genetic Screening: Partner present: Yes Patient verbalized knowledge of partner family health history: Yes Do you or your partner have any personal or family history of defects not previously discussed: no Do you have history of a complicated by anomaly, genetic condition, or demise: No ACOG Recommended Screening Screening for early gestational diabetes testing: Criteria for early testing requires elevated BMI plus one other risk factor: BMI 35.46 kg/(m2) (risk factor if > than 25 or 23 in Americans) Additional risk factors: Previous gestational diabetes mellitus She does meet ACOG criteria for early gestational DM screening. Screening for low dose aspirin use for the prevention of pre-eclampsia: Low dose aspirin should be considered if the patient has one high or two moderate risk factors: High risk factors: None Moderate risk ractors: Obesity (body mass index greater than 30) She does meet criteria for low dose ASA Marital Status: Partner: Name: Juan Jose Age: 30 Occupation: Disabled Gender: Male History of STDs: None PAST MEDICAL HISTORY Diagnosis Date Antepartum anemia complicating in first trimester 11/21/2020 Asthma childhood -no attacks since age 9 Diet controlled gestational diabetes mellitus (GDM) in third trimester 03/16/2021 Adkp-Obzir-Pvbxste disease PAST SURGICAL HISTORY Procedure Laterality Date TONSILLECTOMY AND ADENOIDECTOMY HX Current Outpatient Medications Medication Sig Dispense Refill miconazole nitrate (MONISTAT 7) 2 % (100 mg)- 2 % (9 gram) cpfc Use 1 Applicator vaginally once daily for 7 days. 44 g 0 multivitamin (CLASSIC ) 28 mg iron- 800 mcg tab(s) Take 1 tablet by mouth once daily. CRANBERRY EXTRACT (CRANBERRY ORAL) Take by mouth. No current facility-administered medications for this visit. Allergies As of Date: 01/07/2023 (No Known Allergies) Fully Assessed 01/07/2023 Does patient (more content not included)... [facility] 01-07-2023 Instructions Brenna Altamirano APRN.[facility] - 01/07/2023 8:37 AM EST Please select the following link to access the [facility] Your Guide to a Healthy . [email or web address] de MORNING SICKNESS IN by Adrianna Marshall M.D. for [employer] As you may already know, morning sickness can often be more appropriately called evening sickness or fjmhm-hgipss-py-the-day sickness. While there are the daryl few, most women (50-90%) experience some degree of nausea, some have vomiting, and a few develop a severe form of vomiting during called hyperemesis gravidarum. What causes the nausea and vomiting of ? We can't explain why some people feel fine and others are green for months. Even the same woman may feel vastly different in each . There is some relationship between nausea and the level of the hormone hCG. In twin pregnancies, and in other situations where the hCG is greater than expected, nausea and vomiting tend to be worse. In a destined for miscarriage, hCG levels tend to be low, and nausea is often less severe. This being said, a lack of nausea doesn't guarantee that the is destined for miscarriage. The fact that nausea and vomiting are often signs of a healthy can offer a silver lining in the dark cloud of miserable nausea. How long will the nausea last? Fortunately, for most women, nausea and vomiting are a first trimester event, peaking at week 9-10 and waning by week 14-16. When you are feeling bad the weeks can go by slowly but most moms do feel tremendously better by the middle of the . Whether morning sickness is a brief experience or lasts through most of the , there are treatments that can make the weeks or months more tolerable. What can you do about it? Diet: See what works for you. Try eating bland dry foods, and avoid fatty or spicy foods. It is okay to eat a less than perfectly balanced diet in the first trimester. Have your liquids separately from dry foods. Try sports drinks, water, clear juices, Jacob-aid, or non-caffeinated tea. Avoid carbonated beverages that fill up your stomach. Try eating lots of little meals. If you tend to feel sick when you first wake up, leave crackers next to the bed for a quick snack before rising. Keeping healthy snacks with you all day to nibble when you feel queasy can sometimes even prevent nausea from starting. vitamins and nausea: Pre-leelee vitamins can sometimes worsen nausea in . While folate is necessary, especially early in the , it comes as a smaller pill that many people find more tolerable than the complete vitamin pill. Ask your practitioner if it is okay to temporarily replace vitamins and iron with just a folate pill if you find a significant worsening in the level of your nausea from the vitamins. Alternative therapies: Acupressure may be used to treat nausea in , and is not known to have any risks for the fetus. Wristbands (marketed for seasickness) that put pressure on an acupressure point at the wrist are often available at drugstores or travel stores. Fly root is used for nausea in many traditional cultures. Some women take fresh grated fly or fly tablets. It is possible that the pill form contains other ingredients or contaminants, so you may want to try fresh fly first. Medications: Emetrol is the only nausea medication approved for use in . It is available over the counter and is soothing to the stomach. A prescription medication called Bendectin was available in the -1979's and was shown to be safe in , but the company stopped marketing it in the [place] due to the costs of liability coverage. Bendectin contained 10 milligrams of vitamin B6 and 10 milligrams of Doxylamine. Two tablets were given at bedtime and a total of up to 4 tablets could be used in a 24-hour period. Interestingly, Unisom , which contains a higher dose (25 mg.) of the same medication, Doxylamine, is currently marketed as an nrqo-ndi-jnemjno sleeping pill. Ask your practitioner if creating a vitamin B6/Doxylamine combination with gcpp-bau-omrlido medications would be safe for you. Prescription medications like Compazine and Phenergan can be used if the benefits outweigh possible risks, but these have not been clearly shown to be safe in . Zofran , an expensive anti-nausea medication often used to treat nausea from chemotherapy, can also be used. Can I throw up so much it harms the baby? The act of vomiting cannot hurt your fetus, which is protected inside the uterus. If you get dehydrated or develop a metabolic imbalance, this can be unhealthy. As long as you can keep down liquids, you and your baby will generally do all right. Eat when you feel able. If you are unable to keep anything down, or if you notice potential signs of dehydration such as lightheadedness, or concentrated and/or infrequent urination, call your practitioner. Some women need brief hospital admission for intravenous fluids and anti-nausea medications if their condition becomes severe. This severe form of nausea and vomiting is called Hyperemesis Gravidarum. As with many symptoms of , remind yourself that this, too, shall pass, and you'll have a wonderful baby to show for it! TREATMENT OPTIONS, SHORT VERSION: Frequent small meals Hydrate throughout day [employer]ands wrist pressure point applicators Fly root (powdered, in capsules) 250mg four times a day Vitamin B6 25 mg tablet three times a day Also may be taken with half a tablet of Unisom three times a day (Doxylamine 12.5 mg) If severe (weight loss, dehydration), call us and come in for IV hydration and possible medication in the form of injections. Prescription medications such as Phenergan, Compazine, Reglan documented in this encounter [facility] 01-07-2023 History of Presen t illness Narrative OB point of care ultrasound was performed. See imaging tab for details. INITIAL OB ASSESSMENT OB Provider: Cheli Dillard MD HPI: Bibiana is a 27 year old White here to establish Obstetrical Care. Patient's last menstrual period was 10/29/2022 (approximate). from OB Dating Form. Cycles regular was planned Complaints: None OB History T1 L1 SAB0 IAB0 Ectopic0 Multiple0 Live Births1 Previous history: Prior : never History of 4th degree laceration: No History of shoulder dystocia: No History of Hypertensive disorders including pre-eclampsia, chronic hypertension or gestational hypertension: No History of gestational diabetes: Yes Patient's Risk Screening for delivery: Have you had a prior cash between 20w and 36w6d?: No MEDICAL/PSYCHOSOCIAL HISTORY: History of hemorrhage or bleeding concerns: No Thyroid Disease: No History of chronic hypertension: No History of pre-existing diabetes: No ABO/RH(D) Date Value Ref Range Status 12/15/2020 A POSITIVE Final BMI 35.46 kg/(m^2) History of abnormal pap: No Prior treatment for cervical dysplasia: N/A. History of STDs: None Tobacco use: No Caffeine use: Yes, 1 cup per day Drug use: No Alcohol use: No Multivitamin with Folic acid: Yes Moravian or heritage: No Would refuse blood transfusion if medically necessary: No Are you currently employed? Yes, Occupation: [employer] Do you have any history of depression, anxiety, PTSD, eating disorders or other mood problems: No Do you have any safety concerns or history of traumatic events that you would like to discuss with your provider: No SDOH Screening: How often does this describe you? I don't have enough money to pay my bills: Never Within the past 12 months, have you worried that your food would run out before you had money to buy more: Never In the past 12 months, has lack of reliable transportation kept you from going to medical appointments or work, or from keeping things needed for daily living: Never In the past 12 months, have you had any concerns about having a place to live, or about the condition or quality of your housing: Never Are there any cultural or spiritual needs we should be aware of: No Depression/Anxiety Screening: denies symptoms of depression. OB Depression and Anxiety Screening- This Encounter (since 01/06/2023) Over the past 2 weeks have you felt down, depressed, or hopeless? Negative Over the past two weeks, have you felt little interest or pleasure in doing things? Negative Feeling nervous, anxious or on edge 0-Not at all Not being able to stop or control worrying 0-Not al all Anxiety Pre-Screening Total (If >/= 3 additional questions will be reviewed) 0 Genetic Screening: Partner present: Yes Patient verbalized knowledge of partner family health history: Yes Do you or your partner have any personal or family history of defects not previously discussed: no Do you have history of a complicated by anomaly, genetic condition, or demise: No ACOG Recommended Screening Screening for early gestational diabetes testing: Criteria for early testing requires elevated BMI plus one other risk factor: BMI 35.46 kg/(m^2) (risk factor if > than 25 or 23 in Americans) Additional risk factors: Previous gestational diabetes mellitus She does meet ACOG criteria for early gestational DM screening. Screening for low dose aspirin use for the prevention of pre-eclampsia: Low dose aspirin should be considered if the patient has one high or two moderate risk factors: High risk factors: None Moderate risk ractors: Obesity (body mass index greater than 30) She does meet criteria for low dose ASA Marital Status: Partner: Name: Juan Jose Age: 30 Occupation: Disabled Gender: Male History of STDs: None PAST MEDICAL HISTORY Diagnosis Date Antepartum anemia complicating in first trimester 11/21/2020 Asthma childhood -no attacks since age 9 Diet controlled gestational diabetes mellitus (GDM) in third trimester 03/16/2021 Avyd-Jhdla-Uojpsgn disease PAST SURGICAL HISTORY Procedure Laterality Date TONSILLECTOMY AND ADENOIDECTOMY HX Current Outpatient Medications Medication Sig Dispense Refill miconazole nitrate (MONISTAT 7) 2 % (100 mg)- 2 % (9 gram) cpfc Use 1 Applicator vaginally once daily for 7 days. 44 g 0 multivitamin (CLASSIC ) 28 mg iron- 800 mcg tab(s) Take 1 tablet by mouth once daily. CRANBERRY EXTRACT (CRANBERRY ORAL) Take by mouth. No current facility-administered medications for this visit. Allergies As of Date: 01/07/2023 (No Known Allergies) Fully Assessed 01/07/2023 Does patient have penicillin allergy: No REVIEW OF SYSTEMS: GENERAL: Negative for: Fever or Chills HEENT: Negative for: Headache, Impaired Vision, Ringing in Ears, Nosebleeds NECK: Negative for: Swelling, Pain, Stiffness RESPIRATORY: Negative for: Shortness of breath, Wheezing + cough GASTROINTESTINAL: Negative for: Constipation, Diarrhea, Blood in stool, Vomiting + heartburn and nausea MUSCULOSKELETAL: Negative for: Muscle or joint pain, stiffness, Joint swelling NEUROLOGIC/PSYCHIATRIC: Negative for: Weakness, Paralysis, Numbness, Tingling, Tremor, Anxiety, Depression, Memory loss SKIN: Negative for: Rash, Itching GENITOURINARY: Negative for: vaginal itching, vaginal discharge, hematuria or dysuria + recent yeast infection + discomfort with urination PHYSICAL EXAM: Ht 5' .5 (1.54m) Wt 184 lb 9.6 oz (83.7kg) LMP 10/29/2022 BMI 35.44 kg/(m^2). GENERAL: pleasant in no apparent distress DERMATOLOGY: Normal, without lesions, non-icteric, and non-hirsute NECK: Supple, full range of motion, no adenopathy, and thyroid normal CHEST: Normal inspiratory effort BREAST: soft, non-tender, symmetric, no dominant mass, normal nipple-areolar complex, no lymphadenopathy, and no nipple discharge ABDOMEN: soft, non-tender, and no masses NEURO: alert and oriented x3,exam grossly non-focal PELVIS: External genitalia normal without lesions. Perineal body intact. No vaginal or cervical lesions. Cervix closed. Uterus 10 week size. No adnexal masses or tenderness. Clinical Pelvimetry: Pelvimetry clinically assessed as adequate Limited OB ultrasound exam: single intrauterine and positive cardiac activity OB Risk Screening: Completed, no positive findings documented. ASSESSMENT: 27 year old at 10w0d wks gestational age PLAN: 1) Patient oriented to practice. Patient given new OB orientation folder. Discussed nutrition, folic acid supplementation, dietary guidelines, exercise, smoking, alcohol, caffeine, and drug use. Discussed gestational weight gain guidelines. Discussed routine OB labs including STD/HIV. Discussed how to access Your guide to a health and the [employer]. Discussed aneuploidy and carrier screening. Regarding aneuploidy screening, nuchal translucency/first trimester early anatomy ultrasound and NIPT were discussed. Regarding carrier screening, the myriad screen was discussed. The risks/benefits and limitations of NIPT/aneuploidy screening were reviewed including the potential for false negative and false positive results. We discussed the availability of professional-society guided carrier screening and reviewed the conditions screened and limitations of screening. The availability of genetic counseling was reviewed. Information on aneuploidy/carrier screening was provided. The patient chooses: Aneuploidy screening: declines screening and Carrier screening: Accepts Discussed hemoglobin electrophoresis. Patient: Accepts Patient offered option of Virtual Visits. Patient unsure. May consider in future. Reviewed midwifery and jewellery designer services that are available. ACTIVE PROBLEM LIST 10 Weeks Gestation of - 01/07/2023 Comment: care and precautions reviewed. Supervision of Normal - 01/07/2023 Comment: Declines genetic screening. Accepts carrier screening. With Uncertain Dates in First Trimester - 01/07/2023 Comment: POCUS consistent with LMP Heartburn During in First Trimester - 01/07/2023 Comment: Reviewed Tums or Pepcid. Asthma During - 01/07/2023 Comment: No Hemabate with delivery. Forceps Or Vacuum Extractor Delivery - 01/07/2023 Comment: Pushed 6.5 hours. Vacuum delivery. Obesity Affecting in First Trimester - 01/07/2023 Comment: Pre BMI 35 Growth at 32 weeks Recommend low dose ASA at 12 weeks. History of Gestational Diabetes - 07/10/2021 Comment: HgbA1c ordered. Diet controlled with last . Nausea and Vomiting During - 11/13/2020 Comment: Vitamin B6 and Unisom doses reviewed. To notify if prescription is needed. History of Qeee-Gcvvf-Fxxgacb Disease - 11/13/2020 Comment: 11/13/2020atient states she has Royu-Xlnoy-Odbpzqd disease. TKRN Follow up in 4 weeks or sooner prn. Brenna Altamirano APRN.COLLECTION TECHNICIAN documented in this encounter [facility] 01-01-2023 Note HNO ID: [id number] Author: Arleen Baca APRN.COLLECTION TECHNICIAN Service: ? Author Type: Nurse Practitioner Type: Progress Notes Filed: 01/01/2023 12:24 PM Note Text: HPI: Cheli Ochoa is a 27 year old female who presents with a 5-day history of fatigue, body aches, nasal congestion and drainage, sore throat, nonproductive cough, nausea. She also has a 3-day history of yellow, mucousy, malodorous vaginal discharge, itching, and irritation. For URI closure her boyfriend and daughter are here today with similar symptoms. She is 8 weeks and is not taking anything for her symptoms. She denies fever, chills, purulent drainage from her nose, ear pain, sputum production, tonsillar exudates or erythema, abdominal pain, and diarrhea. Denies possibility of STD exposure. Denies vaginal lesions, dysuria, pyuria or hematuria, recent antibiotic use. PAST MEDICAL HISTORY Diagnosis Date Antepartum anemia complicating in first trimester 11/21/2020 Asthma childhood -no attacks since age 9 Diet controlled gestational diabetes mellitus (GDM) in third trimester 03/16/2021 Ivpo-Fapee-Raaulep disease ACTIVE PROBLEM LIST History of Bwpy-Zaorc-Unojwra Disease History of Gestational Diabetes Current Outpatient Medications Medication Sig Dispense Refill multivitamin (CLASSIC ) 28 mg iron- 800 mcg tab(s) Take 1 tablet by mouth once daily. CRANBERRY EXTRACT (CRANBERRY ORAL) Take by mouth. miconazole nitrate (MONISTAT 7) 2 % (100 mg)- 2 % (9 gram) cpfc Use 1 Applicator vaginally once daily for 7 days. 44 g 0 No current facility-administered medications for this visit. Social History Tobacco Use Smoking status: Never Smokeless tobacco: Never Vaping Use Vaping Use: Never used Substance Use Topics Alcohol use: Not Currently Drug use: Never Alcohol Use: Not Currently Tobacco Use: Never FAMILY HISTORY Problem Relation Age of Onset Hypertension Mother Heart Father Diabetes Father other (syncope) Sister other (benign tumor eye) Brother COPD Maternal Grandmother other (chf) Maternal Grandmother Ovarian cancer Paternal Grandmother Neuropathy Paternal Grandfather Diabetes Paternal Grandfather Review of Systems Constitutional: Positive for malaise/fatigue. Negative for chills, diaphoresis, fever and weight loss. HENT: Positive for congestion and sore throat. Negative for ear discharge, ear pain, hearing loss, nosebleeds, sinus pain and tinnitus. Eyes: Negative. Respiratory: Positive for cough. Negative for hemoptysis, sputum production, shortness of breath, wheezing and stridor. Cardiovascular: Negative. Gastrointestinal: Positive for nausea. Negative for abdominal pain, blood in stool, constipation, diarrhea, heartburn, melena and vomiting. Genitourinary: Negative. Musculoskeletal: Negative. Skin: Negative. Neurological: Negative. Endo/Heme/Allergies: Negative. Psychiatric/Behavioral: Negative. All other systems reviewed and are negative. BP 112/78 Pulse 68 Temp 97.8 Resp 20 Wt 189 lb 9.6 oz (86.0kg) SpO2 98% LMP 10/29/2022 Physical Exam Vitals and nursing note reviewed. Constitutional: General: She is not in acute distress. Appearance: Normal appearance. She is normal weight. She is not ill-appearing or toxic-appearing. HENT: Head: Normocephalic. Right Ear: Tympanic membrane, ear canal and external ear normal. Left Ear: Tympanic membrane, ear canal and external ear normal. Nose: Congestion and rhinorrhea present. Mouth/Throat: Mouth: Mucous membranes are moist. Pharynx: No oropharyngeal exudate or posterior oropharyngeal erythema. Eyes: Extraocular Movements: Extraocular movements intact. Conjunctiva/sclera: Conjunctivae normal. Pupils: Pupils are equal, round, and reactive to light. Cardiovascular: Rate and Rhythm: Normal rate and regular rhythm. Heart sounds: Normal heart sounds. Pulmonary: Effort: Pulmonary effort is normal. Breath sounds: Normal breath sounds. Abdominal: General: Bowel sounds are normal. Palpations: Abdomen is soft. Genitourinary: Comments: Deferred Skin: General: Skin is warm and dry. Neurological: Mental Status: She is alert and oriented to person, place, and time. Clinical Impression ICD-10-CM 1. URI, acute J06.9 2. Vaginal yeast infection B37.31 PLAN: Patient in no acute distress, vital signs stable. Physical exam benign lungs clear to auscultation bilaterally. Vaginal exam deferred at this time. Suspect URI and possible yeast infection. Offered COVID/flu/RSV testing; patient declined. Due to patient being 8 weeks , symptom management is limited to Zyrtec, domi-bci-axucblc Monistat, rest, hydrate. Patient instructed to follow-up with her COMMUNICABLE DISEASE SPECIALIST related to vaginal discharge BARBARA. Follow-up with PCP for any additional concerns. Patient in agreement to the above plan and discharged in stable condition. Arleen Baca APRN.BORA (more content not included)... [facility] 11-26-2022 Note HNO ID: [id number] Author: Linh Fine MD Service: ? Author Type: Physician Type: Progress Notes Filed: 11/26/2022 2:40 PM Note Text: Bar Assistant offered: Patient declines. Bibiana is a 27 year old who presents for an annual gynecologic exam without complaints. Menses: cycles every 32 days and 5-7 days of flow. Contraception: none HPV vaccine: Yes Last Pap: 11/25/2020 normal HPV: N/A History of abnormal pap: No Last mammogram: never Sexually active: Yes History of STDS: None Patient concerns for STD exposure: No. Pain with intercourse: No Postcoital bleeding: No Exercise: active Diet: 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 History LMP: 10/29/2022 (Approximate), Having periods Age at Menarche: Age at First : Age at Menopause: Lead Housekeeper History Comments: Sexual Activity: Yes; Male Contraception: No contraception data on record PAST MEDICAL HISTORY Diagnosis Date Antepartum anemia complicating in first trimester 11/21/2020 Asthma childhood -no attacks since age 9 Diet controlled gestational diabetes mellitus (GDM) in third trimester 03/16/2021 Qxej-Fzfqd-Xlrrehx disease PAST SURGICAL HISTORY Procedure Laterality Date TONSILLECTOMY AND ADENOIDECTOMY HX FAMILY HISTORY Problem Relation Age of Onset Hypertension Mother Heart Father Diabetes Father other (syncope) Sister other (benign tumor eye) Brother COPD Maternal Grandmother other (chf) Maternal Grandmother Ovarian cancer Paternal Grandmother Neuropathy Paternal Grandfather Diabetes Paternal Grandfather SOCIAL HISTORY Social History Tobacco Use Smoking status: Never Smokeless tobacco: Never Vaping Use Vaping Use: Never used Substance Use Topics Alcohol use: Not Currently Drug use: Never REVIEW OF SYSTEMS Abdomen: No abdominal pain, nausea, vomiting, diarrhea, or constipation. No bloating, early satiety, indigestion, or increased flatulence. Bladder: No dysuria, gross hematuria, urinary frequency, urinary urgency, or incontinence. Breast: No breast lumps, nipple d/c, overlying skin changes, redness or skin retraction and just stopped breast feeding- ?? Lump in right breast. Allergies and current medication updated:Yes EXAM: BP 118/80 Ht 5' 1 (1.55m) Wt 186 lb (84.4kg) LMP 10/29/2022 BMI 35.16 kg/(m2). GENERAL: pleasant, female in no apparent distress HEENT: Normocephalic, atraumatic, mucus membranes moist, and no lesions NECK: Supple, full range of motion, no adenopathy, and thyroid normal DERMATOLOGY: Normal, without lesions, non-icteric, and non-hirsute BREAST: soft, non-tender, symmetric, no dominant mass, normal nipple-areolar complex, no lymphadenopathy, and no nipple discharge ABDOMEN: soft, non-tender, and no masses PELVIC: external genitalia normal, normal Bartholin's glands, urethra, [place]'s glands, no vulvar lesions, no cervical lesions, good vaginal support, physiologic discharge present, normal appearing perineal body and perianal region BIMANUAL: uterus normal size, shape and consistency, no adnexal masses, and non-tender RECTOVAGINAL: deferred. NEURO: alert and oriented x3,exam grossly non-focal EXTREMITIES: normal ASSESSMENT/PLAN: 1) Health maintenance: Pap/HPV up to date. Mammogram starting age 40. Nutrition, exercise and routine health maintenance exams reviewed. Calcium/Vitamin D supplementation information provided. HPV vaccine: completed series 2) Contraception: none. Contraceptive options reviewed and information provided. 3) STD screening: Declined STD check. 4) Follow up one year or sooner as needed Linh Siddiqui MD [facility] 11-26-2022 History of Presen t illness Narrative Bar Assistant offered: Patient declines. Bibiana is a 27 year old who presents for an annual gynecologic exam without complaints. Menses: cycles every 32 days and 5-7 days of flow. Contraception: none HPV vaccine: Yes Last Pap: 11/25/2020 normal HPV: N/A History of abnormal pap: No Last mammogram: never Sexually active: Yes History of STDS: None Patient concerns for STD exposure: No. Pain with intercourse: No Postcoital bleeding: No Exercise: active Diet: 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 History LMP: 10/29/2022 (Approximate), Having periods Age at Menarche: Age at First : Age at Menopause: Lead Housekeeper History Comments: Sexual Activity: Yes; Male Contraception: No contraception data on record PAST MEDICAL HISTORY Diagnosis Date Antepartum anemia complicating in first trimester 11/21/2020 Asthma childhood -no attacks since age 9 Diet controlled gestational diabetes mellitus (GDM) in third trimester 03/16/2021 Orjo-Poguf-Gnoesvw disease PAST SURGICAL HISTORY Procedure Laterality Date TONSILLECTOMY AND ADENOIDECTOMY HX FAMILY HISTORY Problem Relation Age of Onset Hypertension Mother Heart Father Diabetes Father other (syncope) Sister other (benign tumor eye) Brother COPD Maternal Grandmother other (chf) Maternal Grandmother Ovarian cancer Paternal Grandmother Neuropathy Paternal Grandfather Diabetes Paternal Grandfather SOCIAL HISTORY Social History Tobacco Use Smoking status: Never Smokeless tobacco: Never Vaping Use Vaping Use: Never used Substance Use Topics Alcohol use: Not Currently Drug use: Never REVIEW OF SYSTEMS Abdomen: No abdominal pain, nausea, vomiting, diarrhea, or constipation. No bloating, early satiety, indigestion, or increased flatulence. Bladder: No dysuria, gross hematuria, urinary frequency, urinary urgency, or incontinence. Breast: No breast lumps, nipple d/c, overlying skin changes, redness or skin retraction and just stopped breast feeding- ?? Lump in right breast. Allergies and current medication updated:Yes EXAM: BP 118/80 Ht 5' 1 (1.55m) Wt 186 lb (84.4kg) LMP 10/29/2022 BMI 35.16 kg/(m^2). GENERAL: pleasant, female in no apparent distress HEENT: Normocephalic, atraumatic, mucus membranes moist, and no lesions NECK: Supple, full range of motion, no adenopathy, and thyroid normal DERMATOLOGY: Normal, without lesions, non-icteric, and non-hirsute BREAST: soft, non-tender, symmetric, no dominant mass, normal nipple-areolar complex, no lymphadenopathy, and no nipple discharge ABDOMEN: soft, non-tender, and no masses PELVIC: external genitalia normal, normal Bartholin's glands, urethra, [place]'s glands, no vulvar lesions, no cervical lesions, good vaginal support, physiologic discharge present, normal appearing perineal body and perianal region BIMANUAL: uterus normal size, shape and consistency, no adnexal masses, and non-tender RECTOVAGINAL: deferred. NEURO: alert and oriented x3,exam grossly non-focal EXTREMITIES: normal ASSESSMENT/PLAN: 1) Health maintenance: Pap/HPV up to date. Mammogram starting age 40. Nutrition, exercise and routine health maintenance exams reviewed. Calcium/Vitamin D supplementation information provided. HPV vaccine: completed series 2) Contraception: none. Contraceptive options reviewed and information provided. 3) STD screening: Declined STD check. 4) Follow up one year or sooner as needed Linh Siddiqui MD documented in this encounter [facility] 11-05-2022 Note . MICRO - Microbiology PROCEDURE: Urine Culture [*1] SOURCE: Urine BODY SITE: COLLECTED DATE/TIME: 11/02/2022 17:57 EDT RECEIVED DATE/TIME: 11/03/2022 14:27 EDT START DATE/TIME: 11/03/2022 14:27 EDT FREE TEXT SOURCE: FINAL REPORTS Final Report [] Verified Date/Time/Personnel: 11/05/2022 14:19 EDT 50,000 - 100,000 cfu/ml Multiple bacterial morphotypes present. Probable Contamination. Suggest recollection if clinically indicated. including 10,000 - 50,000 cfu/ml Group B Beta Hemolytic Strep (Strep agalactiae) Sensitivity testing is not recommended for one of the following reasons: 1. Established susceptibility patterns are available or 2. Interpretative criteria are not available. PRELIMINARY REPORTS Preliminary Report [] Verified Date/Time/Personnel: 11/04/2022 12:27 EDT Culture results pending. Performing Locations *1: This test was performed at: [facility], [address] [place] [address], [phone] , [facility] ([place]) 11-02-2022 Hospital Discharg e instructions Patient Education 11/02/2022 18:09:11 Flank Pain, Uncertain Cause Flank Pain, Uncertain Cause The flank is the area between your upper abdomen and your back. Pain there is often caused by a problem with your kidneys. It might be a kidney infection or a kidney stone. Other causes of flank pain include spinal arthritis, a pinched nerve from a back injury, or a back muscle strain or spasm. The cause of your flank pain is not certain. You may need other tests. Home care Follow these tips when caring for yourself at home: You may use acetaminophen or ibuprofen to control pain, unless your health care provider prescribed another medicine. If you have chronic liver or kidney disease, talk with your provider before taking these medicines. Also talk with your provider first if you ve ever had a stomach ulcer or GI bleeding. If the pain is coming from your muscles, you may get relief with ice or heat. During the first 2 days after the injury, put an ice pack on the painful area for 20 minutes every 2 to 4 hours. This will reduce swelling and pain. A hot shower, hot bath, or heating pad works well for a muscle spasm. You can start with ice, then switch to heat after 2 days. You might find that alternating ice and heat works well. Use the method that feels the best to you. Follow-up care Follow up with your healthcare provider if your symptoms don t get better over the next few days. When to seek medical advice Call your healthcare provider right away if any of these happen: Repeated vomiting Fever of 100.4 F (38 C) or higher, or as directed by your health care provider Flank pain that gets worse Pain that spreads to the front of your belly (abdomen) Dizziness, weakness, or fainting Blood in your urine Burning feeling when you urinate or the need to urinate often Pain in one of your legs that gets worse Numbness or weakness in a leg [id number] [employer]. [address] [place] [address]. All rights reserved. This information is not intended as a substitute for professional medical care. Always follow your healthcare professional's instructions. 11/02/2022 18:09:03 Bladder Infection, Female (Adult) Bladder Infection, Female (Adult) Urine is normally doesn't have any bacteria in it. But bacteria can get into the urinary tract from the skin around the rectum. Or they can travel in the blood from elsewhere in the body. Once they are in your urinary tract, they can cause infection in the urethra (urethritis), the bladder (cystitis), or the kidneys (pyelonephritis). The most common place for an infection is in the bladder. This is called a bladder infection. This is one of the most common infections in women. Most bladder infections are easily treated. They are not serious unless the infection spreads to the kidney. The phrases bladder infection, UTI, and cystitis are often used to describe the same thing. But they are not always the same. Cystitis is an inflammation of the bladder. The most common cause of cystitis is an infection. Symptoms The infection causes inflammation in the urethra and bladder. This causes many of the symptoms. The most common symptoms of a bladder infection are: Pain or burning when urinating Having to urinate more often than usual Urgent need to urinate Only a small amount of urine comes out Blood in urine Abdominal discomfort. This is usually in the lower abdomen above the pubic bone. Cloudy urine Strong- or bad-smelling urine Unable to urinate (urinary retention) Unable to hold urine in (urinary incontinence) Fever Loss of appetite Confusion (in older adults) Causes Bladder infections are not contagious. You can't get one from someone else, from a toilet seat, or from sharing a bath. The most common cause of bladder infections is bacteria from the bowels. The bacteria get onto the skin around the opening of the urethra. From there, they can get into the urine and travel up to the bladder, causing inflammation and infection. This usually happens because of: Wiping improperly after urinating. Always wipe from front to back. Bowel incontinence Procedures such as having a catheter inserted Older age Not emptying your bladder. This can allow bacteria a chance to grow in your urine. Dehydration Constipation Sex Use of a diaphragm for control Treatment Bladder infections are diagnosed by a urine test. They are treated with antibiotics and usually clear up quickly without complications. Treatment helps prevent a more serious kidney infection. Medicines Medicines can help in the treatment of a bladder infection: Take antibiotics until they are used up, even if you feel better. It is important to finish them to make sure the infection has cleared. You can use acetaminophen or ibuprofen for pain, fever, or discomfort, unless another medicine was prescribed. If you have chronic liver or kidney disease, talk with your healthcare provider before using these medicines. Also talk with your provider if you've ever had a stomach ulcer or gastrointestinal bleeding, or are taking blood-thinner medicines. If you are given phenazopydridine to reduce burning with urination, it will cause your urine to become a bright orange color. This can stain clothing. Care and prevention These self-care steps can help prevent future infections: Drink plenty of fluids to prevent dehydration and flush out your bladder. Do this unless you must restrict fluids for other health reasons, or your doctor told you not to. Proper cleaning after going to the bathroom is important. Wipe from front to back after using the toilet to prevent the spread of bacteria. Urinate more often. Don't try to hold urine in for a long time. Wear loose-fitting clothes and cotton underwear. Avoid tight-fitting pants. Improve your diet and prevent constipation. Eat more fresh fruit and vegetables, and fiber, and less junk and fatty foods. Avoid sex until your symptoms are gone. Avoid caffeine, alcohol, and spicy foods. These can irritate your bladder. Urinate right after intercourse to flush out your bladder. If you use control pills and have frequent bladder infections, discuss it with your doctor. Follow-up care Call your healthcare provider if all symptoms are not gone after 3 days of treatment. This is especially important if you have repeat infections. If a culture was done, you will be told if your treatment needs to be changed. If directed, you can call to find out the results. If X-rays were done, you will be told if the results will affect your treatment. Call 911 Call 911 if any of the following occur: Trouble breathing Hard to wake up or confusion Fainting or loss of consciousness Rapid heart rate When to seek medical advice Call your healthcare provider right away if any of these occur: Fever of 100.4 F (38.0 C) or higher, or as directed by your healthcare provider Symptoms are not better by the third day of treatment Back or belly (abdominal) pain that gets worse Repeated vomiting, or unable to keep medicine down Weakness or dizziness Vaginal discharge Pain, redness, or swelling in the outer vaginal area (labia) [phone] [employer]. [address] [place] [id number]. All rights reserved. This information is not intended as a substitute for professional medical care. Always follow your healthcare professional's instructions. Follow Up Care 11/02/2022 15:54:19 With:YI BASS Address: [address] [place] [phone] Business (1) When:2-4 days Comments:Return to ED if symptoms worsen With:Call ROSA Valiente PtBarbra Refferral [phone] Address:Unknown When:2-4 days [facility] 11-02-2022 Note Discharge Instructions Thank you for allowing [place] to assist you with your healthcare needs. The following is important discharge information regarding your hospital visit. Diagnosis from Today's Visit Flank pain Urinary tract infection What to Do Next Instructions from Your Care Team No qualifying data available. Post Acute Orders No qualifying data available. You Need to Schedule the Following Appointments Follow Up with YI BASS When Within 2-4 days Why: Return to ED if symptoms worsen Where: [address] [place] [address] [phone] Business (1) Follow Up with Call ROSA Valiente PtBarbra Refferral [phone] When Within 2-4 days Allergies NKA Medications Please ask your primary doctor or pharmacist before taking any other medication not listed, including over the counter drugs, herbal medications, vitamins and or supplements as they may interact with your home medications. What How Much When Why Instructions Last Dose New acetaminophen-oxyCODONE (Percocet 5 mg-325 mg oral tablet) 1 tab(s) by mouth Every 6 hours as needed for for pain Flank pain Duration: 3 Days Printed Prescription New cephalexin (cephalexin 500 mg oral capsule) 1 cap by mouth Every 12 hours Duration: 5 Days Printed Prescription New ondansetron (ondansetron 4 mg oral tablet, disintegrating) 1 tab(s) by mouth Every 6 hours as needed for Nausea/Vomiting Duration: 3 Days Printed Prescription Please take this list to your next doctor s visit. Bring all medications you take, including over the counter medications, herbals and other supplements with you to your doctor s visit. Patients and families are reminded to discard old lists and to update any records with all medication providers or retail pharmacies. Education Materials Flank Pain, Uncertain Cause The flank is the area between your upper abdomen and your back. Pain there is often caused by a problem with your kidneys. It might be a kidney infection or a kidney stone. Other causes of flank pain include spinal arthritis, a pinched nerve from a back injury, or a back muscle strain or spasm. The cause of your flank pain is not certain. You may need other tests. Home care Follow these tips when caring for yourself at home: You may use acetaminophen or ibuprofen to control pain, unless your health care provider prescribed another medicine. If you have chronic liver or kidney disease, talk with your provider before taking these medicines. Also talk with your provider first if you ve ever had a stomach ulcer or GI bleeding. If the pain is coming from your muscles, you may get relief with ice or heat. During the first 2 days after the injury, put an ice pack on the painful area for 20 minutes every 2 to 4 hours. This will reduce swelling and pain. A hot shower, hot bath, or heating pad works well for a muscle spasm. You can start with ice, then switch to heat after 2 days. You might find that alternating ice and heat works well. Use the method that feels the best to you. Follow-up care Follow up with your healthcare provider if your symptoms don t get better over the next few days. When to seek medical advice Call your healthcare provider right away if any of these happen: Repeated vomiting Fever of 100.4 F (38 C) or higher, or as directed by your health care provider Flank pain that gets worse Pain that spreads to the front of your belly (abdomen) Dizziness, weakness, or fainting Blood in your urine Burning feeling when you urinate or the need to urinate often Pain in one of your legs that gets worse Numbness or weakness in a leg [phone] [employer] [address] [facility], [place] [address]. All rights reserved. This information is not intended as a substitute for professional medical care. Always follow your healthcare professional's instructions. Bladder Infection, Female (Adult) Urine is normally doesn't have any bacteria in it. But bacteria can get into the urinary tract from the skin around the rectum. Or they can travel in the blood from elsewhere in the body. Once they are in your urinary tract, they can cause infection in the urethra (urethritis), the bladder (cystitis), or the kidneys (pyelonephritis). The most common place for an infection is in the bladder. This is called a bladder infection. This is one of the most common infections in women. Most bladder infections are easily treated. They are not serious unless the infection spreads to the kidney. The phrases bladder infection, UTI, and cystitis are often used to describe the same thing. But they are not always the same. Cystitis is an inflammation of the bladder. The most common cause of cystitis is an infection. Symptoms The infection causes inflammation in the urethra and bladder. This causes many of the symptoms. The most common symptoms of a bladder infection are: Pain or burning when urinating Having to urinate more often than usual Urgent need to urinate Only a small amount of urine comes out Blood in urine Abdominal discomfort. This is usually in the lower abdomen above the pubic bone. Cloudy urine Strong- or bad-smelling urine Unable to urinate (urinary retention) Unable to hold urine in (urinary incontinence) Fever Loss of appetite Confusion (in older adults) Causes Bladder infections are not contagious. You can't get one from someone else, from a toilet seat, or from sharing a bath. The most common cause of bladder infections is bacteria from the bowels. The bacteria get onto the skin around the opening of the urethra. From there, they can get into the urine and travel up to the bladder, causing inflammation and infection. This usually happens because of: Wiping improperly after urinating. Always wipe from front to back. Bowel incontinence Procedures such as having a catheter inserted Older age Not emptying your bladder. This can allow bacteria a chance to grow in your urine. Dehydration Constipation Sex Use of a diaphragm for control Treatment Bladder infections are diagnosed by a urine test. They are treated with antibiotics and usually clear up quickly without complications. Treatment helps prevent a more serious kidney infection. Medicines Medicines can help in the treatment of a bladder infection: Take antibiotics until they are used up, even if you feel better. It is important to finish them to make sure the infection has cleared. You can use acetaminophen or ibuprofen for pain, fever, or discomfort, unless another medicine was prescribed. If you have chronic liver or kidney disease, talk with your healthcare provider before using these medicines. Also talk with your provider if you've ever had a stomach ulcer or gastrointestinal bleeding, or are taking blood-thinner medicines. If you are given phenazopydridine to reduce burning with urination, it will cause your urine to become a bright orange color. This can stain clothing. Care and prevention These self-care steps can help prevent future infections: Drink plenty of fluids to prevent dehydration and flush out your bladder. Do this unless you must restrict fluids for other health reasons, or your doctor told you not to. Proper cleaning after going to the bathroom is important. Wipe from front to back after using the toilet to prevent the spread of bacteria. Urinate more often. Don't try to hold urine in for a long time. Wear loose-fitting clothes and cotton underwear. Avoid tight-fitting pants. Improve your diet and prevent constipation. Eat more fresh fruit and vegetables, and fiber, and less junk and fatty foods. Avoid sex until your symptoms are gone. Avoid caffeine, alcohol, and spicy foods. These can irritate your bladder. Urinate right after intercourse to flush out your bladder. If you use control pills and have frequent bladder infections, discuss it with your doctor. Follow-up care Call your healthcare provider if all symptoms are not gone after 3 days of treatment. This is especially important if you have repeat infections. If a culture was done, you will be told if your treatment needs to be changed. If directed, you can call to find out the results. If X-rays were done, you will be told if the results will affect your treatment. Call 911 Call 911 if any of the following occur: Trouble breathing Hard to wake up or confusion Fainting or loss of consciousness Rapid heart rate When to seek medical advice Call your healthcare provider right away if any of these occur: Fever of 100.4 F (38.0 C) or higher, or as directed by your healthcare provider Symptoms are not better by the third day of treatment Back or belly (abdominal) pain that gets worse Repeated vomiting, or unable to keep medicine down Weakness or dizziness Vaginal discharge Pain, redness, or swelling in the outer vaginal area (labia) [id number] [employer]. [address] [place] [address], [place] [address]. All rights reserved. This information is not intended as a substitute for professional medical care. Always follow your healthcare professional's instructions. Additional Information VACCINATE! IT SAVES LIVES! Members of the community who have not yet received the COVID-19 vaccine and would like to receive it can visit one of [facility] vaccine clinics. There are many vaccine clinic locations within the [facility]. For locations and available times, please visit [email or web address] It is important to note that some COVID mobile vaccine clinics are held outdoors and may be canceled in rainy or stormy conditions. To learn more about pediatric vaccinations (ages 5-11), we invite you to visit the [facility] webpage. [email or web address] To learn more about the COVID-19 vaccine, we invite you to visit the CDC website for a list of frequently asked questions. https://www.cdc.gov/coronavirus /2019-ncov/vaccines/faq.html [facility] Patient Portal Access Instructions: Stay connected with your healthcare team and access your personal medical information anytime with the [facility] Patient Portal. If you would like a full copy of your medical records please contact the [facility] Medical Records Department Tuesday through Tuesday between 8a.m. and 4:30p.m. Please follow the directions below to access the portal: 1.Access the email account you provided upon registration to the hospital.2.Look for an invitation email from [facility].3.Open the email and access the invitation link: Accept Invitation to [facility]4.Fill in the required quiroz to create your account. Sign into [email or web address] with your username and password that you created in the above steps to stay up to date. You can then view a summary of results, a summary of your visits, and the ability to download your summaries to your computer or send the information securely to a physician. Remember that your healthcare information is confidential, so carefully consider who you will allow to register on the [facility] Patient Portal for access to your information. You can also access the [facility] Patient Portal on the [employer]. Simply click on Health Records under Health Data and then click on the [employer] logo. HOW TO SAFELY DISPOSE OF PRESCRIPTION MEDICATIONS Please use one of the following methods to safely dispose of your unused medications. 1.Use a drug disposal kit: the drug disposal pouch allows you to safely discard your old and unused drugs. Ask your nurse to give you one when you are discharged.2.Visit a local take-back location: Many local pharmacies and police departments have programs that collect old and unwanted prescription drugs. Call your local pharmacy or go to http://[employer]/6O5Ro7b to find one close to you.3.Make use of household items: Use cat litter or old coffee grounds to dispose medications if other options are not available. Mix your drugs with these household products, seal them in an airtight container and throw it into the garbage. Call [facility]: [phone] to be sure your drugs can be disposed of in this way. Some medicines may require a different approach.4.Never flush your medications down the toilet. IF YOU HAVE BEEN PRESCRIBED AN OPIOIDS FOR PAIN If you have been prescribed an opioid (such as hydrocodone, oxycodone or morphine), it is critical to understand the possible side effects and risks of opioid pain medications. Even when taken as directed, opioids can have several side effects including: Tolerance, meaning you might need to take more of a medication for the same pain relief. Nausea, vomiting and/or constipation. Sleepiness, dizziness, dry mouth, confusion, depression or itching. Physical dependence, meaning you have withdrawal symptoms when a medication is stopped ? this can develop within a few days. KNOW YOUR RESPONSIBILITIES It is important to know exactly how much and how often to take the opioid pain medications you are prescribed. Never take opioids in higher amounts or more often than prescribed. Do not combine opioids with alcohol or other drugs that cause drowsiness, such as benzodiazepines, also known as benzos, including diazepam and alprazolam, muscle relaxants or sleep aids. Never sell or share prescription opioids. This is illegal. Store opioids in a secure place and out of reach of others (including children, family, friends and visitors). The last page(s) of this document has been signed and retained as a CHART COPY Signatures Patient Education Materials Flank Pain, Uncertain Cause Bladder Infection, Female (Adult) Medication Leaflets My discharge plan and instructions have been reviewed and explained to me and IJACQUI REBECCA understand my current condition and have read and understand these discharge instructions. I have received a written copy of the plan/instructions. If I have questions, I am aware that I should contact my doctor. 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 Multiplanar reformatted images are provided for review. Automated exposure control, iterative reconstruction, and/or weight based adjustment of the mA/kV was utilized to reduce the radiation dose to as low as reasonably achievable. COMPARISON: None. HISTORY: ORDERING SYSTEM PROVIDED HISTORY: Reason for Exam: BILATERAL flank pain FINDINGS: Lower Chest: Normal heart size. No focal consolidation or pleural effusion. Organs: The liver and biliary tract appears normal. The spleen appears normal. The pancreas appears normal. The adrenal glands appear normal. The kidneys appear normal with no evidence of nephrolithiasis or hydronephrosis. GI/Bowel: There is diverticulosis without evidence of diverticulitis. There is no evidence of obstruction. The appendix is normal. Pelvis: There are multiple calcified exophytic lesions of uterus, measuring up to 4 cm, likely representing fibroids. Peritoneum/Retroperitoneum: There is no intraperitoneal free air or ascites. The aorta and its major branches appear normal. No lymphadenopathy is identified. Bones/Soft Tissues: No focal bone or soft tissue abnormality is seen. IMPRESSION: 1. No renal stones or obstructive uropathy. 2. Calcified uterine fibroids measuring up to 4 cm. Interpreted by: Bryan Pickering Preliminary Report By: Bryan Pickering Electronically signed By Bryan Pickering Dictated Date: 11/02/2022 5:52:30 PM Prelim Date: 11/02/2022 5:57:37 PM Sign Date: 11/02/2022 5:57:37 PM Ordering Provider: IAN MORAN [facility] 11-02-2022 Evaluation + Plan note Diagnostic Tests PendingUrine Culture 11/02/22 [facility] 09-14-2022 Note HNO ID: [id number] Author: Tejal Iriwn MD Service: ? Author Type: Physician Type: Progress Notes Filed: 09/14/2022 8:02 AM Note Text: 8.01 am Result of throat swab come back positive for strep from the lab Prescription of amoxicillin has been sent to pharmacy on file electronically. Will notify patient via MyChart of the results and prescription. [facility] 09-13-2022 Note HNO ID: [id number] Author: Tejal Irwin MD Service: ? Author Type: Physician Type: Progress Notes Filed: 09/13/2022 4:08 PM Note Text: Cheli Ochoa is a 27 year old FEMALE who presents with Cough (Started 2 days ago /) and Sore Throat (Started 2 days ago //Patient has loss of voice /) 27 years old female presented with sore throat for the last 2 days She also have some cough and some hoarseness of voice Hurts to swallow No fever or chills, no shortness of breath no significant runny nose PAST MEDICAL HISTORY Diagnosis Date Antepartum anemia complicating in first trimester 11/21/2020 Asthma childhood -no attacks since age 9 Diet controlled gestational diabetes mellitus (GDM) in third trimester 03/16/2021 Eova-Ogucz-Mttgbtt disease ACTIVE PROBLEM LIST History of Dmlu-Afzqk-Hofebqc Disease History of Gestational Diabetes Current Outpatient Medications Medication Sig Dispense Refill drospirenone, contraceptive, (SLYND) 4 mg (28) tabet Take 1 tablet by mouth once daily. (Patient not taking: Reported on 09/13/2022) 30 tablet 11 multivitamin (CLASSIC ) 28 mg iron- 800 mcg tab(s) Take 1 tablet by mouth once daily. (Patient not taking: Reported on 07/12/2022) CRANBERRY EXTRACT (CRANBERRY ORAL) Take by mouth. (Patient not taking: No sig reported) No current facility-administered medications for this visit. Social History Tobacco Use Smoking status: Never Smokeless tobacco: Never Vaping Use Vaping Use: Never used Substance Use Topics Alcohol use: Not Currently Drug use: Never Alcohol Use: Not Currently Tobacco Use: Never FAMILY HISTORY Problem Relation Age of Onset Hypertension Mother Heart Father Diabetes Father other (syncope) Sister other (benign tumor eye) Brother COPD Maternal Grandmother other (chf) Maternal Grandmother Ovarian cancer Paternal Grandmother Neuropathy Paternal Grandfather Diabetes Paternal Grandfather Review of Systems Constitutional: Negative. HENT: Positive for sore throat. Respiratory: Positive for cough. BP 126/81 Pulse 80 Temp (Src) 98.9 (Temporal) Resp 19 Wt 191 lb 9.6 oz (86.9kg) SpO2 98% LMP 08/23/2022 Physical Exam Vitals reviewed. Constitutional: General: She is not in acute distress. Appearance: Normal appearance. She is not ill-appearing or toxic-appearing. HENT: Nose: Nose normal. Mouth/Throat: Mouth: Mucous membranes are moist. Pharynx: Posterior oropharyngeal erythema (Mildly injected pharynx) present. Cardiovascular: Rate and Rhythm: Normal rate and regular rhythm. Heart sounds: Normal heart sounds. Pulmonary: Effort: Pulmonary effort is normal. Breath sounds: Normal breath sounds. Musculoskeletal: Cervical back: Normal range of motion and neck supple. No rigidity. Lymphadenopathy: Cervical: No cervical adenopathy. Neurological: Mental Status: She is alert. Explained to patient that her rapid strep test is negative, there is no need of any antibiotic right now. ASSESSMENT/PLAN: 1. Sore throat - ICD9: 462, ICD10: J02.9 (primary diagnosis) - RAPID GROUP A STREP RFLX TO PCR - GROUP A STREPTOCOCCUS BY PCR 2. Viral pharyngitis - ICD9: 462, ICD10: J02.9 Gargle, lozenges OTC med as needed Recheck if any change F/u PCP for further ration and care explained details Patient understand and agreed Tejal Irwin MD [facility] 09-13-2022 Instructions Tejal Irwin MD - 09/13/2022 3:49 PM EDT Gargle, lozenges OTC med as needed Recheck if any change F/u PCP for further ration and care explained details documented in this encounter [facility] 09-13-2022 History of Presen t illness Narrative Cheli Ochoa is a 27 year old FEMALE who presents with Cough (Started 2 days ago /) and Sore Throat (Started 2 days ago //Patient has loss of voice /) 27 years old female presented with sore throat for the last 2 days She also have some cough and some hoarseness of voice Hurts to swallow No fever or chills, no shortness of breath no significant runny nose PAST MEDICAL HISTORY Diagnosis Date Antepartum anemia complicating in first trimester 11/21/2020 Asthma childhood -no attacks since age 9 Diet controlled gestational diabetes mellitus (GDM) in third trimester 03/16/2021 Oiin-Ycoyy-Dllpwso disease ACTIVE PROBLEM LIST History of Stxe-Fwofq-Nsgqffn Disease History of Gestational Diabetes Current Outpatient Medications Medication Sig Dispense Refill drospirenone, contraceptive, (SLYND) 4 mg (28) tabet Take 1 tablet by mouth once daily. (Patient not taking: Reported on 09/13/2022) 30 tablet 11 multivitamin (CLASSIC ) 28 mg iron- 800 mcg tab(s) Take 1 tablet by mouth once daily. (Patient not taking: Reported on 07/12/2022) CRANBERRY EXTRACT (CRANBERRY ORAL) Take by mouth. (Patient not taking: No sig reported) No current facility-administered medications for this visit. Social History Tobacco Use Smoking status: Never Smokeless tobacco: Never Vaping Use Vaping Use: Never used Substance Use Topics Alcohol use: Not Currently Drug use: Never Alcohol Use: Not Currently Tobacco Use: Never FAMILY HISTORY Problem Relation Age of Onset Hypertension Mother Heart Father Diabetes Father other (syncope) Sister other (benign tumor eye) Brother COPD Maternal Grandmother other (chf) Maternal Grandmother Ovarian cancer Paternal Grandmother Neuropathy Paternal Grandfather Diabetes Paternal Grandfather Review of Systems Constitutional: Negative. HENT: Positive for sore throat. Respiratory: Positive for cough. BP 126/81 Pulse 80 Temp (Src) 98.9 (Temporal) Resp 19 Wt 191 lb 9.6 oz (86.9kg) SpO2 98% LMP 08/23/2022 Physical Exam Vitals reviewed. Constitutional: General: She is not in acute distress. Appearance: Normal appearance. She is not ill-appearing or toxic-appearing. HENT: Nose: Nose normal. Mouth/Throat: Mouth: Mucous membranes are moist. Pharynx: Posterior oropharyngeal erythema (Mildly injected pharynx) present. Cardiovascular: Rate and Rhythm: Normal rate and regular rhythm. Heart sounds: Normal heart sounds. Pulmonary: Effort: Pulmonary effort is normal. Breath sounds: Normal breath sounds. Musculoskeletal: Cervical back: Normal range of motion and neck supple. No rigidity. Lymphadenopathy: Cervical: No cervical adenopathy. Neurological: Mental Status: She is alert. Explained to patient that her rapid strep test is negative, there is no need of any antibiotic right now. ASSESSMENT/PLAN: 1. Sore throat - ICD9: 462, ICD10: J02.9 (primary diagnosis) - RAPID GROUP A STREP RFLX TO PCR - GROUP A STREPTOCOCCUS BY PCR 2. Viral pharyngitis - ICD9: 462, ICD10: J02.9 Gargle, lozenges OTC med as needed Recheck if any change F/u PCP for further ration and care explained details Patient understand and agreed Tejal Irwin MD documented in this encounter [facility] 07-12-2022 Note HNO ID: [id number] Author: Michael Patel PA-C Service: ? Author Type: Physician Construction Executive Type: Progress Notes Filed: 07/12/2022 2:58 PM Note Text: HPI: Cheli Ochoa is a 27 year old female who presents with Vaginal Discharge (White vaginal discharge vaginal itch started last night . Patient is on antibiotics.). PAST MEDICAL HISTORY Diagnosis Date Antepartum anemia complicating in first trimester 11/21/2020 Asthma childhood -no attacks since age 9 Diet controlled gestational diabetes mellitus (GDM) in third trimester 03/16/2021 Yxvp-Kxeuy-Aqsgrkp disease ACTIVE PROBLEM LIST History of Eglf-Xfmuq-Hmxdpgb Disease History of Gestational Diabetes Current Outpatient Medications Medication Sig Dispense Refill amoxicillin (AMOXIL) 875 mg tablet Take 1 tablet by mouth twice daily for 10 days. 20 tablet 0 drospirenone, contraceptive, (SLYND) 4 mg (28) tabet Take 1 tablet by mouth once daily. 30 tablet 11 multivitamin (CLASSIC ) 28 mg iron- 800 mcg tab(s) Take 1 tablet by mouth once daily. (Patient not taking: Reported on 07/12/2022) CRANBERRY EXTRACT (CRANBERRY ORAL) Take by mouth. (Patient not taking: No sig reported) No current facility-administered medications for this visit. Social History Tobacco Use Smoking status: Never Smokeless tobacco: Never Vaping Use Vaping Use: Never used Substance Use Topics Alcohol use: Not Currently Drug use: Never Alcohol Use: Not Currently Tobacco Use: Never FAMILY HISTORY Problem Relation Age of Onset Hypertension Mother Heart Father Diabetes Father other (syncope) Sister other (benign tumor eye) Brother COPD Maternal Grandmother other (chf) Maternal Grandmother Ovarian cancer Paternal Grandmother Neuropathy Paternal Grandfather Diabetes Paternal Grandfather Review of Systems HENT: Negative. Negative for congestion and sore throat. Eyes: Negative. Respiratory: Negative for cough, shortness of breath and wheezing. Cardiovascular: Negative for chest pain. Gastrointestinal: Negative for diarrhea, nausea and vomiting. Genitourinary: Negative. Musculoskeletal: Negative. Skin: Positive for itching and rash. Neurological: Negative. Endo/Heme/Allergies: Negative. Psychiatric/Behavioral: Negative. All other systems reviewed and are negative. BP 136/77 Pulse 88 Resp 17 Wt 186 lb (84.4kg) SpO2 99% LMP 06/15/2022 Physical Exam Vitals and nursing note reviewed. Constitutional: General: She is not in acute distress. Appearance: Normal appearance. She is normal weight. She is not ill-appearing or toxic-appearing. HENT: Head: Normocephalic and atraumatic. Right Ear: Tympanic membrane, ear canal and external ear normal. Left Ear: Tympanic membrane, ear canal and external ear normal. Nose: Nose normal. No congestion or rhinorrhea. Mouth/Throat: Mouth: Mucous membranes are moist. Pharynx: Oropharynx is clear. No oropharyngeal exudate or posterior oropharyngeal erythema. Eyes: Extraocular Movements: Extraocular movements intact. Conjunctiva/sclera: Conjunctivae normal. Pupils: Pupils are equal, round, and reactive to light. Cardiovascular: Rate and Rhythm: Normal rate and regular rhythm. Pulses: Normal pulses. Heart sounds: Normal heart sounds. Pulmonary: Effort: Pulmonary effort is normal. Breath sounds: Normal breath sounds. Abdominal: General: Abdomen is flat. Bowel sounds are normal. Palpations: Abdomen is soft. Musculoskeletal: General: Normal range of motion. Cervical back: Normal range of motion and neck supple. No tenderness. Lymphadenopathy: Cervical: No cervical adenopathy. Skin: General: Skin is warm and dry. Capillary Refill: Capillary refill takes less than 2 seconds. Neurological: General: No focal deficit present. Mental Status: She is alert and oriented to person, place, and time. Psychiatric: Mood and Affect: Mood normal. Behavior: Behavior normal. Clinical Impression ICD-10-CM 1. Vaginal yeast infection B37.31 PLAN: Patient is prone to yeast infections, she is on day #5 of an antibiotic for strep throat. She has the burning irritation and discharge. Denies any diabetes history. Put on Diflucan with a repeat dose to use after she finishes the antibiotic. Michael Patel PA-C This note was generated with voice recognition software and may contain errors, including spelling, grammar, syntax and misrecognition of what was dictated, that are not fully corrected. [facility] 07-12-2022 History of Presen t illness Narrative HPI: Cheli Ochoa is a 27 year old female who presents with Vaginal Discharge (White vaginal discharge vaginal itch started last night . Patient is on antibiotics.). PAST MEDICAL HISTORY Diagnosis Date Antepartum anemia complicating in first trimester 11/21/2020 Asthma childhood -no attacks since age 9 Diet controlled gestational diabetes mellitus (GDM) in third trimester 03/16/2021 Ujmj-Fvhww-Hyagmmr disease ACTIVE PROBLEM LIST History of Plxz-Dgmov-Krffjen Disease History of Gestational Diabetes Current Outpatient Medications Medication Sig Dispense Refill amoxicillin (AMOXIL) 875 mg tablet Take 1 tablet by mouth twice daily for 10 days. 20 tablet 0 drospirenone, contraceptive, (SLYND) 4 mg (28) tabet Take 1 tablet by mouth once daily. 30 tablet 11 multivitamin (CLASSIC ) 28 mg iron- 800 mcg tab(s) Take 1 tablet by mouth once daily. (Patient not taking: Reported on 07/12/2022) CRANBERRY EXTRACT (CRANBERRY ORAL) Take by mouth. (Patient not taking: No sig reported) No current facility-administered medications for this visit. Social History Tobacco Use Smoking status: Never Smokeless tobacco: Never Vaping Use Vaping Use: Never used Substance Use Topics Alcohol use: Not Currently Drug use: Never Alcohol Use: Not Currently Tobacco Use: Never FAMILY HISTORY Problem Relation Age of Onset Hypertension Mother Heart Father Diabetes Father other (syncope) Sister other (benign tumor eye) Brother COPD Maternal Grandmother other (chf) Maternal Grandmother Ovarian cancer Paternal Grandmother Neuropathy Paternal Grandfather Diabetes Paternal Grandfather Review of Systems HENT: Negative. Negative for congestion and sore throat. Eyes: Negative. Respiratory: Negative for cough, shortness of breath and wheezing. Cardiovascular: Negative for chest pain. Gastrointestinal: Negative for diarrhea, nausea and vomiting. Genitourinary: Negative. Musculoskeletal: Negative. Skin: Positive for itching and rash. Neurological: Negative. Endo/Heme/Allergies: Negative. Psychiatric/Behavioral: Negative. All other systems reviewed and are negative. BP 136/77 Pulse 88 Resp 17 Wt 186 lb (84.4kg) SpO2 99% LMP 06/15/2022 Physical Exam Vitals and nursing note reviewed. Constitutional: General: She is not in acute distress. Appearance: Normal appearance. She is normal weight. She is not ill-appearing or toxic-appearing. HENT: Head: Normocephalic and atraumatic. Right Ear: Tympanic membrane, ear canal and external ear normal. Left Ear: Tympanic membrane, ear canal and external ear normal. Nose: Nose normal. No congestion or rhinorrhea. Mouth/Throat: Mouth: Mucous membranes are moist. Pharynx: Oropharynx is clear. No oropharyngeal exudate or posterior oropharyngeal erythema. Eyes: Extraocular Movements: Extraocular movements intact. Conjunctiva/sclera: Conjunctivae normal. Pupils: Pupils are equal, round, and reactive to light. Cardiovascular: Rate and Rhythm: Normal rate and regular rhythm. Pulses: Normal pulses. Heart sounds: Normal heart sounds. Pulmonary: Effort: Pulmonary effort is normal. Breath sounds: Normal breath sounds. Abdominal: General: Abdomen is flat. Bowel sounds are normal. Palpations: Abdomen is soft. Musculoskeletal: General: Normal range of motion. Cervical back: Normal range of motion and neck supple. No tenderness. Lymphadenopathy: Cervical: No cervical adenopathy. Skin: General: Skin is warm and dry. Capillary Refill: Capillary refill takes less than 2 seconds. Neurological: General: No focal deficit present. Mental Status: She is alert and oriented to person, place, and time. Psychiatric: Mood and Affect: Mood normal. Behavior: Behavior normal. Clinical Impression ICD-10-CM 1. Vaginal yeast infection B37.31 PLAN: Patient is prone to yeast infections, she is on day #5 of an antibiotic for strep throat. She has the burning irritation and discharge. Denies any diabetes history. Put on Diflucan with a repeat dose to use after she finishes the antibiotic. Michael Patel PA-C This note was generated with voice recognition software and may contain errors, including spelling, grammar, syntax and misrecognition of what was dictated, that are not fully corrected. documented in this encounter [facility] 07-06-2022 Note HNO ID: [id number] Author: Tejal Irwin MD Service: ? Author Type: Physician Type: Progress Notes Filed: 07/06/2022 6:47 PM Note Text: 07/06/2022 18.46 Patient called and notified us that she needs to be 48 hours without fever before she can go back to work so I issued her a new letter to return to work on 07/08/2022. 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 Patient voices no other concerns at this time. Letitia Wu LPN Patient called in stating that her note says that she can be off today but she also needs it to be for her to be off tomorrow for work. Patient is asking if there is a way to have a note so she can be off tomorrow as well since she has to be fever free for 24 hours for her work. Letitia Wu LPN documented in this encounter [facility] 07-06-2022 Note HNO ID: [id number] Author: Tejal Irwin MD Service: ? Author Type: Physician Type: Progress Notes Filed: 07/06/2022 9:37 AM Note Text: Cheli Ochoa is a 27 year old FEMALE who presents with Cough (Started 3 days ago ), Fever (Started 3 days ago ), Sore Throat (Started 3 days ago ), and Headache (Started 3 days ago ) 27 years old female been with cough congestion and sore throat It hurts to swallow,No shortness of breath No vomiting or diarrhea, also had fever PAST MEDICAL HISTORY Diagnosis Date Antepartum anemia complicating in first trimester 11/21/2020 Asthma childhood -no attacks since age 9 Diet controlled gestational diabetes mellitus (GDM) in third trimester 03/16/2021 Dajz-Gticr-Ufixkup disease ACTIVE PROBLEM LIST History of Cjie-Cwitz-Sncqyfm Disease History of Gestational Diabetes Current Outpatient Medications Medication Sig Dispense Refill drospirenone, contraceptive, (SLYND) 4 mg (28) tabet Take 1 tablet by mouth once daily. 30 tablet 11 multivitamin (CLASSIC ) 28 mg iron- 800 mcg tab(s) Take 1 tablet by mouth once daily. CRANBERRY EXTRACT (CRANBERRY ORAL) Take by mouth. (Patient not taking: Reported on 07/06/2022) No current facility-administered medications for this visit. Social History Tobacco Use Smoking status: Never Smokeless tobacco: Never Vaping Use Vaping Use: Never used Substance Use Topics Alcohol use: Not Currently Drug use: Never Alcohol Use: Not Currently Tobacco Use: Never FAMILY HISTORY Problem Relation Age of Onset Hypertension Mother Heart Father Diabetes Father other (syncope) Sister other (benign tumor eye) Brother COPD Maternal Grandmother other (chf) Maternal Grandmother Ovarian cancer Paternal Grandmother Neuropathy Paternal Grandfather Diabetes Paternal Grandfather Review of Systems Constitutional: Positive for fever. HENT: Positive for congestion and sore throat. Respiratory: Positive for cough. Negative for shortness of breath. Gastrointestinal: Negative. BP 116/66 Pulse 114 Temp (Src) 98.4 (Temporal) Resp 18 Wt 183 lb 9.6 oz (83.3kg) SpO2 98% LMP 06/15/2022 Physical Exam Vitals reviewed. Constitutional: General: She is not in acute distress. Appearance: Normal appearance. She is not ill-appearing or toxic-appearing. HENT: Nose: Congestion present. Mouth/Throat: Pharynx: Posterior oropharyngeal erythema (Mild injected pharynx) present. Cardiovascular: Rate and Rhythm: Normal rate and regular rhythm. Heart sounds: Normal heart sounds. Pulmonary: Effort: Pulmonary effort is normal. Breath sounds: Normal breath sounds. Musculoskeletal: Cervical back: Normal range of motion and neck supple. Neurological: Mental Status: She is alert. ASSESSMENT/PLAN: 1. Sore throat - ICD9: 462, ICD10: J02.9 (primary diagnosis) - RAPID GROUP A STREP RFLX TO PCR 2. Strep pharyngitis - ICD9: 034.0, ICD10: J02.0 - AMOXICILLIN 875 MG TABLET Gargle, lozenges OTC med as needed Recheck if any change F/u PCP explained details Tejal Irwin MD [facility] 07-06-2022 Instructions Tejal Irwin MD - 07/06/2022 9:18 AM EDT Gargle, lozenges OTC med as needed Recheck if any change F/u PCP explained details documented in this encounter [facility] 07-06-2022 History of Presen t illness Narrative Cheli Ochoa is a 27 year old FEMALE who presents with Cough (Started 3 days ago ), Fever (Started 3 days ago ), Sore Throat (Started 3 days ago ), and Headache (Started 3 days ago ) 27 years old female been with cough congestion and sore throat It hurts to swallow,No shortness of breath No vomiting or diarrhea, also had fever PAST MEDICAL HISTORY Diagnosis Date Antepartum anemia complicating in first trimester 11/21/2020 Asthma childhood -no attacks since age 9 Diet controlled gestational diabetes mellitus (GDM) in third trimester 03/16/2021 Vuha-Fityk-Gjuvumx disease ACTIVE PROBLEM LIST History of Nbnt-Mxpti-Uwminsh Disease History of Gestational Diabetes Current Outpatient Medications Medication Sig Dispense Refill drospirenone, contraceptive, (SLYND) 4 mg (28) tabet Take 1 tablet by mouth once daily. 30 tablet 11 multivitamin (CLASSIC ) 28 mg iron- 800 mcg tab(s) Take 1 tablet by mouth once daily. CRANBERRY EXTRACT (CRANBERRY ORAL) Take by mouth. (Patient not taking: Reported on 07/06/2022) No current facility-administered medications for this visit. Social History Tobacco Use Smoking status: Never Smokeless tobacco: Never Vaping Use Vaping Use: Never used Substance Use Topics Alcohol use: Not Currently Drug use: Never Alcohol Use: Not Currently Tobacco Use: Never FAMILY HISTORY Problem Relation Age of Onset Hypertension Mother Heart Father Diabetes Father other (syncope) Sister other (benign tumor eye) Brother COPD Maternal Grandmother other (chf) Maternal Grandmother Ovarian cancer Paternal Grandmother Neuropathy Paternal Grandfather Diabetes Paternal Grandfather Review of Systems Constitutional: Positive for fever. HENT: Positive for congestion and sore throat. Respiratory: Positive for cough. Negative for shortness of breath. Gastrointestinal: Negative. BP 116/66 Pulse 114 Temp (Src) 98.4 (Temporal) Resp 18 Wt 183 lb 9.6 oz (83.3kg) SpO2 98% LMP 06/15/2022 Physical Exam Vitals reviewed. Constitutional: General: She is not in acute distress. Appearance: Normal appearance. She is not ill-appearing or toxic-appearing. HENT: Nose: Congestion present. Mouth/Throat: Pharynx: Posterior oropharyngeal erythema (Mild injected pharynx) present. Cardiovascular: Rate and Rhythm: Normal rate and regular rhythm. Heart sounds: Normal heart sounds. Pulmonary: Effort: Pulmonary effort is normal. Breath sounds: Normal breath sounds. Musculoskeletal: Cervical back: Normal range of motion and neck supple. Neurological: Mental Status: She is alert. ASSESSMENT/PLAN: 1. Sore throat - ICD9: 462, ICD10: J02.9 (primary diagnosis) - RAPID GROUP A STREP RFLX TO PCR 2. Strep pharyngitis - ICD9: 034.0, ICD10: J02.0 - AMOXICILLIN 875 MG TABLET Gargle, lozenges OTC med as needed Recheck if any change F/u PCP explained details Tejal Irwin MD documented in this encounter [facility] 12-27-2021 History of Presen t illness Narrative Cheli Jordan is a 26 year old female who presents with Cough (2 days) Patient presents urgent care with chief complaint of cough congestion fevers and chills. Patient states that this been going on for the past couple of days now. 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 Also has her 6-month-old child with similar illness. High index of suspicion of RSV on the part of the patient. She COVID tested herself at home which was negative. I offered testing for RSV and influenza but patient denied wanting or needing this and will just treat empirically based upon the fact that it is likely 1 or the other of these diagnoses. Mom is breast-feeding and been doing well with this. She does ask for something for cough possible. Denies any chest pain or shortness of breath, severe headache or visual changes. Cough Associated symptoms include chills. PAST MEDICAL HISTORY Diagnosis Date Antepartum anemia complicating in first trimester 11/21/2020 Asthma childhood -no attacks since age 9 Diet controlled gestational diabetes mellitus (GDM) in third trimester 03/16/2021 Czsx-Ajdog-Gvzqucd disease ACTIVE PROBLEM LIST History of Bphu-Qugxq-Hgdjdzg Disease History of Gestational Diabetes Current Outpatient Medications Medication Sig Dispense Refill drospirenone, contraceptive, (SLYND) 4 mg (28) tabet Take 1 tablet by mouth once daily. 30 tablet 11 multivitamin (CLASSIC ) 28 mg iron- 800 mcg tab(s) Take 1 tablet by mouth once daily. CRANBERRY EXTRACT (CRANBERRY ORAL) Take by mouth. benzonatate (TESSALON PERLES) 100 mg capsule Take 1 capsule by mouth three times daily as needed for cough for up to 10 days. 30 capsule 0 No current facility-administered medications for this visit. Social History Tobacco Use Smoking status: Never Smokeless tobacco: Never Vaping Use Vaping Use: Never used Substance Use Topics Alcohol use: Not Currently Drug use: Never Alcohol Use: Not Currently Tobacco Use: Never FAMILY HISTORY Problem Relation Age of Onset Hypertension Mother Heart Father Diabetes Father other (syncope) Sister other (benign tumor eye) Brother COPD Maternal Grandmother other (chf) Maternal Grandmother Ovarian cancer Paternal Grandmother Neuropathy Paternal Grandfather Diabetes Paternal Grandfather Review of Systems Constitutional: Positive for chills and fever. HENT: Positive for congestion. Eyes: Negative. Respiratory: Positive for cough. Cardiovascular: Negative. Genitourinary: Negative. Skin: Negative. Neurological: Negative. BP 126/71 Pulse 108 Temp 99 Resp 18 Wt 168 lb (76.2kg) SpO2 98% LMP 12/13/2021 Physical Exam Vitals and nursing note reviewed. Constitutional: Appearance: Normal appearance. She is normal weight. HENT: Head: Normocephalic and atraumatic. Right Ear: Tympanic membrane and ear canal normal. Left Ear: Tympanic membrane and ear canal normal. Nose: Congestion and rhinorrhea present. Eyes: Extraocular Movements: Extraocular movements intact. Conjunctiva/sclera: Conjunctivae normal. Pupils: Pupils are equal, round, and reactive to light. Cardiovascular: Rate and Rhythm: Normal rate and regular rhythm. Heart sounds: Normal heart sounds. Pulmonary: Effort: Pulmonary effort is normal. Breath sounds: Normal breath sounds. Musculoskeletal: Cervical back: Normal range of motion and neck supple. Skin: General: Skin is warm and dry. Neurological: General: No focal deficit present. Mental Status: She is alert and oriented to person, place, and time. Psychiatric: Mood and Affect: Mood normal. ASSESSMENT/PLAN: 1. Viral illness - ICD9: 079.99, ICD10: B34.9 Discussed with the patient that it is highly likely that she either has influenza and RSV. Again, I offered testing to tease this out but patient denied wanting or needing this today. Advised on plenty fluids, rest, gdxb-yvg-ivjqlou pain relievers as well as fever reducers. I did prescribe something help her with the cough. Advised to follow-up with her primary care for continuation of symptoms or no better within 7 to 10 days. She voiced understanding was agreeable with this plan. Demetrius Bravo documented in this encounter [facility] 11-30-2021 History of Presen t illness Narrative Cheli Jordan is a 26 year old FEMALE who presents with Sore Throat (Headache, cough, loss of voice x 2 days) HPI PAST MEDICAL HISTORY Diagnosis Date Antepartum anemia complicating in first trimester 11/21/2020 Asthma childhood -no attacks since age 9 Diet controlled gestational diabetes mellitus (GDM) in third trimester 03/16/2021 Xlfd-Uuylj-Hahqvlz disease ACTIVE PROBLEM LIST History of Tfrp-Srqvg-Hltlgql Disease History of Gestational Diabetes Current Outpatient Medications Medication Sig Dispense Refill drospirenone, contraceptive, (SLYND) 4 mg (28) tabet Take 1 tablet by mouth once daily. 30 tablet 11 multivitamin (CLASSIC ) 28 mg iron- 800 mcg tab(s) Take 1 tablet by mouth once daily. amoxicillin (AMOXIL) 875 mg tablet Take 1 tablet by mouth twice daily for 10 days. 20 tablet 0 benzonatate (TESSALON PERLES) 100 mg capsule Take 2 capsules by mouth three times daily as needed for up to 7 days. 42 capsule 0 CRANBERRY EXTRACT (CRANBERRY ORAL) Take by mouth. (Patient not taking: Reported on 11/30/2021) No current facility-administered medications for this visit. Social History Tobacco Use Smoking status: Never Smokeless tobacco: Never Vaping Use Vaping Use: Never used Substance Use Topics Alcohol use: Not Currently Drug use: Never Alcohol Use: Not Currently Tobacco Use: Never FAMILY HISTORY Problem Relation Age of Onset Hypertension Mother Heart Father Diabetes Father other (syncope) Sister other (benign tumor eye) Brother COPD Maternal Grandmother other (chf) Maternal Grandmother Ovarian cancer Paternal Grandmother Neuropathy Paternal Grandfather Diabetes Paternal Grandfather Review of Systems Constitutional: Positive for chills and fever. HENT: Positive for congestion, sinus pain and sore throat. Respiratory: Positive for cough. All other systems reviewed and are negative. BP 140/79 Pulse 80 Temp 97.7 Resp 18 Wt 168 lb (76.2kg) SpO2 100% LMP 11/16/2021 Physical Exam Vitals and nursing note reviewed. HENT: Head: Normocephalic. Right Ear: Tympanic membrane normal. Left Ear: Tympanic membrane normal. Nose: Congestion and rhinorrhea present. Mouth/Throat: Pharynx: Posterior oropharyngeal erythema present. Cardiovascular: Rate and Rhythm: Normal rate and regular rhythm. Pulses: Normal pulses. Heart sounds: Normal heart sounds. Pulmonary: Effort: Pulmonary effort is normal. Breath sounds: Rhonchi present. Skin: General: Skin is warm. Capillary Refill: Capillary refill takes less than 2 seconds. Neurological: General: No focal deficit present. Mental Status: She is alert. Psychiatric: Mood and Affect: Mood normal. ASSESSMENT/PLAN: 1. Laryngitis - ICD9: 464.00, ICD10: J04.0 (primary diagnosis) - AMOXICILLIN 875 MG TABLET - BENZONATATE 100 MG CAPSULE 2. Sinobronchitis - ICD9: 473.9, 490, ICD10: J32.9, J40 - Will begin treatment with Amoxicillin for 10 days - AMOXICILLIN 875 MG TABLET - BENZONATATE 100 MG CAPSULE Deana Navarro documented in this encounter [facility] 07-10-2021 Instructions Marcia Beckett APRN.GARDENIA - 07/10/2021 11:32 AM EDT Oral Contraceptives: The Pill Beginning the Pill Pills come in either a 21 day pack or a 28 day pack. With the 21 day pack you will take one pill for 21 days then no pill for 7 days, during which time you will have what is known as withdrawal bleeding. The 28 day pack allows you to take a pill every day of the cycle with no interruptions. The first 21 pills are the pills with the active ingredients and the last 7 are the nonmedical pills (placebo) or they may contain iron. There will be bleeding during the week you are taking the nonmedical pills. The advantage to the 28 day pack is that you don t have to keep track of when you stopped the pill. Unless otherwise instructed, you should start your pills the Tuesday following your first day of bleeding with your next period (if your period starts on a Tuesday, you should start pills the same day) Read your information packet that comes with the pills. Pill Benefits The pill is the most popular method of reversible control being used today. Millions of women rely on oral contraceptives as their control method. It is important to have an examination by your physician to determine if the pill is safe for you. There are several advantages associated with the pill: it is 97-98% effective; may improve acne; periods are more regular and less painful; there is less iron deficiency anemia in pill users. terminal makeup operator use is associated with a decreased incidence of ovarian and uterine cancer. There is also no evidence that the pill increases the incidence of any cancer. How Oral Contraceptives Work Oral contraceptives come in two varieties. One is the combination pill which contains both estrogen and progesterone. Combination pills are considered 98-99% effective in preventing . This pill comes in either monophasic, which delivers the same amount of estrogen and progesterone throughout the cycle; and triphasic, which try tries to mimic the normal hormone cycle by changing the levels of the hormones in the pills during the month. There is no real advantage to taking the one over the other. The other type of pill only contains progesterone. It is best used for women who can t take estrogen. This type of pill is slightly less effective than the combination pill in preventing . Oral contraceptives prevent ovulation (release of an egg from the ovary) by suppressing the pituitary gland s action. The pill does NOT prevent sexually transmitted disease. Obtaining a Prescription It is important to see your doctor before starting oral contraceptives so that you can have a full medical history taken and a physical examination given. Certain medical conditions may make the pill inappropriate for you, therefore it is very important to be honest and as complete as possible with the information you share with your doctor. The types of predisposing factors which would make the pill a poor choice of control would include: History of blood clots Stroke Serious liver disease or impaired liver function Unexplained vaginal bleeding or Cancer of the reproductive system Active gall bladder disease Hypertension Possible Side Effects It can take up to three months for your body to become adjusted to the pill. The more common side effects experienced at this time are: breakthrough spotting or bleeding, which is bleeding at any other time other than when you should be having a period; nausea or vomiting; breast tenderness; and mild fluid retention. There is no exterminator termite weight gain with the use of the pill. Breakthrough bleeding is the most common complaint of new pill users. There is no way to predict who will have it and there is no way of preventing it. Breakthrough bleeding usually subsides on its own with no further treatment after the first three months of taking the pill. If these symptoms continue to occur after the first three months you should check with your physician to see if there is any physical cause and possibly change to another control pill. Problems: 1. Missed 1 pill: Take 2 pills the next day. 2. Missed 2 pills: Take 2 pills the next day and 2 pills the following day. Also use another form of control (condoms) along with the pill for the rest of the month. 3. Missed 3 or more pills: You have two choices. You can take two pills each day until you are on schedule, plus use an additional form of control along with the pill for the rest of the month. Or you can stop the pill and start a completely new pack of pills the next Tuesday. You must use another form of control with the pill for at least the first two weeks of the new pack. 4. You re ill and you have been vomiting or have diarrhea: You must use another form of control with the pill since the pill may not be fully absorbed during your illness. Continue to use the added control until the end of the cycle. 5. Desire to become : Stop using the pill for one month before trying to become . 6. Taking other medications: The control pill is less effective when you take the antibiotic Rifampin, epilepsy (seizure) drugs such as phenytoin, carbamazepine, phenobarbital, topiramate and some medications for HIV. Let your doctor know if you start taking any of these medications while on the pill. Symptoms to Notify Your Doctor with Immediately: 1. Pain in your chest or legs 2. Continuous blurred vision 3. Severe headaches 4. Slurred speech 5. Tingling or weakness on one side of your body 6. Shortness of breath 7. Swelling of one leg Refills of Control Pills You need to see a doctor every year for a refill of your prescription. This is necessary in order that your health can be monitored closely while you are taking control pills. If your prescription should before your next scheduled appointment you can usually get a one month extension from your doctors office if you call during regular business hours about one week before you need to start the new package of pills. This allows the physician to refer to your chart for necessary health information. documented in this encounter [facility] 07-10-2021 History of Presen t illness Narrative VISIT Cheli Jordan is a 26 year old year old here for visit. Delivery Summary: Delivery information: Delivery date 05/28[birth year]21 Delivery type VAVD Delivering clinician : Name Candi Gender F ROS/ Recovery: Feeding: Breast feeding problems: Seeing marketing sales consultant Menses since delivery: bloody discharge Menstrual pattern prior to : Regular periods [place] since delivery: Not resumed Depression: denies symptoms of depression. OB Depression and Anxiety Screening- This Encounter (since 07/09/2021) None Emotional support: Yes Bowel symptoms: Constipation, Negative for abdominal discomfort, blood in stools or black stools and change in bowel habits Abdomen: N/A Bladder symptoms: No dysuria, gross hematuria, urinary frequency, urinary urgency, or incontinence Other issues: None Last Pap: 2020 normal HPV: N/A PAST MEDICAL HISTORY Diagnosis Date Antepartum anemia complicating in first trimester 11/21/2020 Asthma childhood -no attacks since age 9 Diet controlled gestational diabetes mellitus (GDM) in third trimester 03/16/2021 Kzid-Asthr-Zhsrccf disease PAST SURGICAL HISTORY Procedure Laterality Date TONSILLECTOMY AND ADENOIDECTOMY HX FAMILY HISTORY Problem Relation Age of Onset Hypertension Mother Heart Father Diabetes Father other (syncope) Sister other (benign tumor eye) Brother COPD Maternal Grandmother other (chf) Maternal Grandmother Ovarian cancer Paternal Grandmother Neuropathy Paternal Grandfather Diabetes Paternal Grandfather Social History Tobacco Use Smoking status: Never Smoker Smokeless tobacco: Never Used Vaping Use Vaping Use: Never used Substance Use Topics Alcohol use: Not Currently Drug use: Never PHYSICAL EXAMINATION: LMP 08/19/2020 BP 108/70 Wt 167 lb (75.8 kg) LMP 08/19/2020 (Exact Date) Yes BMI 31.55 kg/m GENERAL: pleasant, female in no apparent distress HEENT: Normocephalic, atraumatic, mucus membranes moist and no lesions NECK: Supple and full range of motion DERMATOLOGY: Normal and without lesions BREAST: soft, non-tender, symmetric, no dominant mass, normal nipple-areolar complex, no lymphadenopathy CHEST: Normal inspiratory effort ABDOMEN: soft, non-tender and no masses. INCISION: N/A PELVIC: external genitalia normal, normal [place]th[place]'s glands, urethra, [place]'s glands, no vulvar lesions, no cervical lesions, good vaginal support, physiologic discharge present, normal appearing perineal body and perianal region BIMANUAL: uterus normal size, shape and consistency, no adnexal masses and non-tender NEURO: alert and oriented x3,exam grossly non-focal EXTREMITIES: normal ASSESSMENT AND PLAN: 26 year old status post with normal course. Contraception plan: Oral contraceptives Follow up: GDM: Needs 2 hour GTT, weight loss: Goal set for 10% of body weight over 6 months. Discussed diet and exercise., Progesterone only OCP - patient will call when no longer , RTC for annual exams and PRN Marcia Beckett APRN.CNM documented in this encounter [facility] 07-10-2021 Miscellaneous Notes Patient notified and will be here on time or earlier. Summer Banegas RN I could see her at 11 but if late I won't be able to fit her in. Thank you, Marcia Beckett APRN.CNM Patient is scheduled to see ROSETTA today at 9:30 AM for 6 week PP. Overslept and she lives 45 min away. Aware that ROSETTA does not have a later opening today. Patient states she is okay to see PAID SEARCH MANAGER because she is returning back to work on Tuesday. ROSETTA- are you OK with seeing patient later in the day or would you like us to check if PAID SEARCH MANAGER are OK to add to their schedule? Summer Banegas RN documented in this encounter [facility] 05-19-2021 Miscellaneous Notes RR- VB No. LOF No. CTXS No. Movement: present. Other c/o: No. Some low back pain. No KNOX or visual changes. Medication list reviewed. Physical Exam See Flow Sheet Abd: soft, nontender, gravid Ext: edema: 2+ A/P 39w0d Estimated Date of Delivery: 05/26/21 julieta blount GDMA1- bs log reviewed, excellent control. R/B?A to induction at 39-40 weeks reviewed, patient questions answered. If no other indication other than GDMA1 for induction,d esires expectant management w/ surveillance NST next week f/u weekly or prn. refill on colace for constipation Cheli Dillard M.D. documented in this encounter [facility] 05-19-2021 Instructions Heather Wu La - 05/19/2021 11:19 AM EDT SEQUENTIAL SCREENINGS The [facility] offers sequential screenings for women who are interested in screenings for chromosomal abnormalities and certain defects during a . The sequential screen combines ultrasound and blood tests to determine the risk of chromosomal abnormalities, including Down's Syndrome (Trisomy 21) and Trisomy 18, as well as open neural tube defects including spina bifida. Ultrasound examination is performed between 11 weeks and 13 weeks gestational age. Blood tests are drawn after the ultrasound and again later in the between 15 and 21 weeks gestational age. Please let your physician know if you are interested in this testing. It will require an appointment with our vtc technician. This is not an ultrasound performed by a physician in our office during a routine visit. SIGNS AND SYMPTOMS OF LABOR 1. Contractions every 10 minutes or more often 2. Clear, pink, or brownish fluid (water) leaking from vagina 3. Feeling that baby is pushing down, pressure 4. Low, dull backache 5. Cramps that feel like a period 6. Cramps with or without diarrhea If you notice any of the above symptoms, contact our office at [phone] and ask to speak with a nurse. After hours, you can call [facility] registry at [phone] OR call [facility] at [phone] and ask to have the doctor business operations manager paged. If you consider this an emergency, dial or go to your nearest emergency department. NEED HELP? Are you dealing with a violent or abusive relationship? Are you a victim of rape or sexual assult? Call [facility] ([place]) 24 hour Crisis Hotline: 141.439.1737 or 166-290-1800. MANUAL Your Guide to a Healthy manual is now on-line. 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 MC message sent. Pt identified by name and : NO Outreach Outcome/Action Unable to reach patient: Left message MyChart message sent Reason for Outreach Payer: No coverage found. Trayn Barber MA May 12, 2021 11:20 AM documented in this encounter [facility] 05-12-2021 Miscellaneous Notes ROSETTA-S: Cheli Jordan is a 26 year old female who presents at 38w0d with BRODERICK: 05/26/2021, by Last Menstrual Period for a routine visit. Good FM. Denies headache, visual changes, chest pain, shortness of breath, vaginal bleeding, leakage of fluid, or dysuria. Feeling well, no complaints. Was seen last visit with [place] Lac[facility]. Forgot BS log but stated almost all FBS and 2hr PP were in normal range Stopped checking BS in last week because they were all normal and only checked them 3 times. O: See flow sheet Gen: No apparent distress Abd: Gravid, nontender S=D, 12 lb TWG, cephalic ASSESSMENT/PLAN: 1. 38 weeks gestation of 2. GDM (gestational diabetes mellitus), class A1 P: 1) PTL precautions reviewed and when to call 2) RTO in 1 week 3) Reviewed with patient GDM and diet controlled. Discussed that recommend continuing to check BS and can test FBS and 1 or 2 meals a day. To send log on 05/15/21 via [employer] to verify BS have been wnl. Discussed risks of untreated GDM. Patient voiced understanding. 4) Growth US next visit. Marcia Beckett APRN.CNM documented in this encounter [facility] 05-12-2021 Instructions Alejandra Copeland MA - 05/12/2021 10:19 AM EDT Inducing labor The optimal time to deliver a baby in a woman who is postterm is sometimes hard to determine. The health care provider and woman must consider the risks and benefits of continuing the , the results of testing, and the condition of the cervix (the lower part of the uterus, which opens into the vagina). Normally, the cervix begins to dilate (open) and efface (thin) towards the end of a woman's . Inducing labor is more likely to take a long time in women whose cervix is not dilated or thinned. Most health care providers will induce labor if it does not begin spontaneously by 41 to 42 weeks of gestation. For a woman whose cervix is not favorable, labor can be induced with a medication applied directly to the cervix or in the vagina, which causes the cervix to soften and dilate. Sometimes medication is given by mouth. Cervical change may also be accomplished using mechanical methods such as a Steinberg catheter bulb. Most women, including those whose cervix is favorable, will also require an intravenous medication (oxytocin), which stimulates the uterus to contract; uterine contractions further stimulate cervical dilation and effacement. If induction of labor does not completely dilate and efface the cervix, or if complications develop that require the baby to be delivered quickly, a delivery is usually performed. Some patients may choose to have a delivery, especially if the fetus is very large (eg, >5000 grams or 11 pounds), or they have a history of previous delivery, or for reasons of personal choice. It is important to understand the risks and benefits of delivery and to discuss these issues with the physician who will be performing the procedure. SIGNS AND SYMPTOMS OF LABOR 1. Contractions every 10 minutes or more often 2. Clear, pink, or brownish fluid (water) leaking from vagina 3. Feeling that baby is pushing down, pressure 4. Low, dull backache 5. Cramps that feel like a period 6. Cramps with or without diarrhea If you notice any of the above symptoms, contact our office at [phone] and ask to speak with a nurse. After hours, you can call doctors registry at [phone] OR call [facility] at [phone] and ask to have the doctor business operations manager paged. If you consider this an emergency, dial [phone] or go to your nearest emergency department. NEED HELP? Are you dealing with a violent or abusive relationship? Are you a victim of rape or sexual assult? Call [facility] ([place]) 24 hour Crisis Hotline: 311.523.4351 or 243-172-7369. MANUAL Your Guide to a Healthy manual is now on-line. Visit [email or web address] nancyGuide to download your free copy documented in this encounter [facility] 05-04-2021 Miscellaneous Notes BPP 8/8, cory 12 GBS done Reminded pt to bring her BS next appt Plans to del at [facility] due again at 38 wks Samy Delaney MD, MD documented in this encounter [facility] 05-04-2021 Nurse Note Movement? Active baby Vaginal Bleeding: NO Vaginal fluid leakage of fluid: NO Contractions: no contractions Edema: Trace Lien Yee LPN documented in this encounter [facility] documented as of this encounter (statuses as of 07/10/2021) [facility] History of Past illness Narrative* Problem Noted Date Resolved Date Diet controlled gestational diabetes mellitus (GDM) in third trimester 03/16/2021 07/10/2021 Abnormal glucose complicating 03/04/1903/16/2021 Overview: March 04, 2021 needs 3 hr. Cheli Dillard MD Antepartum anemia in third trimester 11/21/2020 07/10/2021 Encounter for supervision of other normal , first trimester 11/14/2020 07/10/2021 Nausea and vomiting of , antepartum 08/202007/10/2021 Overview: December 15, 2020 Nausea improved, mostly when has heartburn. Cheli Dillard MD 11/13/2020atient is complaining of nausea and occasional vomiting in . Dietary considerations discussed . Vitamin B6 recommended. Advised patient to call/come in if she is unable to keep any food or fluids down in a 24-hour period. TKRN documented as of this encounter (statuses as of 07/10/2021) [facility] History of Past illness Narrative* Problem Noted Date Resolved Date Diet controlled gestational diabetes mellitus (GDM) in third trimester 03/16/2021 07/10/2021 Abnormal glucose complicating 03/04/1903/16/2021 Overview: March 04, 2021 needs 3 hr. Cheli Dillard MD Antepartum anemia in third trimester 11/21/2020 07/10/2021 Encounter for supervision of other normal , first trimester 11/14/2020 07/10/2021 Nausea and vomiting of , antepartum 08/202007/10/2021 Overview: December 15, 2020 Nausea improved, mostly when has heartburn. Cheli Dillard MD 11/13/2020atient is complaining of nausea and occasional vomiting in . Dietary considerations discussed . Vitamin B6 recommended. Advised patient to call/come in if she is unable to keep any food or fluids down in a 24-hour period. TKRN documented as of this encounter (statuses as of 12/01/2021) [facility] History of Past illness Narrative* Problem Noted Date Resolved Date Diet controlled gestational diabetes mellitus (GDM) in third trimester 03/16/2021 07/10/2021 Abnormal glucose complicating 03/04/1903/16/2021 Overview: March 04, 2021 needs 3 hr. Cheli Dillard MD Antepartum anemia in third trimester 11/21/2020 07/10/2021 Encounter for supervision of other normal , first trimester 11/14/2020 07/10/2021 Nausea and vomiting of , antepartum 08/202007/10/2021 Overview: December 15, 2020 Nausea improved, mostly when has heartburn. Cheli Dillard MD 11/13/2020atient is complaining of nausea and occasional vomiting in . Dietary considerations discussed . Vitamin B6 recommended. Advised patient to call/come in if she is unable to keep any food or fluids down in a 24-hour period. TKRN documented as of this encounter (statuses as of 12/27/2021) [facility] History of Past illness Narrative* Problem Noted Date Resolved Date Diet controlled gestational diabetes mellitus (GDM) in third trimester 03/16/2021 07/10/2021 Abnormal glucose complicating 03/04/1903/16/2021 Overview: March 04, 2021 needs 3 hr. Cheli Dillard MD Antepartum anemia in third trimester 11/21/2020 07/10/2021 Encounter for supervision of other normal , first trimester 11/14/2020 07/10/2021 Nausea and vomiting of , antepartum 08/202007/10/2021 Overview: December 15, 2020 Nausea improved, mostly when has heartburn. Cheli Dillard MD 11/13/2020atient is complaining of nausea and occasional vomiting in . Dietary considerations discussed . Vitamin B6 recommended. Advised patient to call/come in if she is unable to keep any food or fluids down in a 24-hour period. TKRN documented as of this encounter (statuses as of 07/06/2022) [facility] History of Past illness Narrative* Problem Noted Date Resolved Date Diet controlled gestational diabetes mellitus (GDM) in third trimester 03/16/2021 07/10/2021 Abnormal glucose complicating 03/04/1903/16/2021 Overview: March 04, 2021 needs 3 hr. Cheli Dillard MD Antepartum anemia in third trimester 11/21/2020 07/10/2021 Encounter for supervision of other normal , first trimester 11/14/2020 07/10/2021 Nausea and vomiting of , antepartum 08/202007/10/2021 Overview: December 15, 2020 Nausea improved, mostly when has heartburn. Cheli Dillard MD 11/13/2020atient is complaining of nausea and occasional vomiting in . Dietary considerations discussed . Vitamin B6 recommended. Advised patient to call/come in if she is unable to keep any food or fluids down in a 24-hour period. TKRN documented as of this encounter (statuses as of 07/07/2022) [facility] History of Past illness Narrative* Problem Noted Date Resolved Date Diet controlled gestational diabetes mellitus (GDM) in third trimester 03/16/2021 07/10/2021 Abnormal glucose complicating 03/04/1903/16/2021 Overview: March 04, 2021 needs 3 hr. Cheli Dillard MD Antepartum anemia in third trimester 11/21/2020 07/10/2021 Encounter for supervision of other normal , first trimester 11/14/2020 07/10/2021 Nausea and vomiting of , antepartum 08/202007/10/2021 Overview: December 15, 2020 Nausea improved, mostly when has heartburn. Cheli Dillard MD 11/13/2020atient is complaining of nausea and occasional vomiting in . Dietary considerations discussed . Vitamin B6 recommended. Advised patient to call/come in if she is unable to keep any food or fluids down in a 24-hour period. TKRN documented as of this encounter (statuses as of 07/13/2022) [facility] History of Past illness Narrative* Problem Noted Date Diagnosed Date Resolved Date Diet controlled gestational diabetes mellitus (GDM) in third trimester 03/16/2021 07/10/2021 Abnormal glucose complicating 03/04/2021 03/16/2021 Overview: March 04, 2021 needs 3 hr. Cheli Dillard MD Antepartum anemia in third trimester 11/21/2020 07/10/2021 Encounter for supervision of other normal , first trimester 11/14/2020 07/10/2021 Nausea and vomiting of , antepartum 07/10/2021 Overview: December 15, 2020 Nausea improved, mostly when has heartburn. Cheli Dillard MD 11/13/2020atient is complaining of nausea and occasional vomiting in . Dietary considerations discussed . Vitamin B6 recommended. Advised patient to call/come in if she is unable to keep any food or fluids down in a 24-hour period. TKRN documented as of this encounter (statuses as of 09/14/2022) [facility] History of Past illness Narrative* Problem Noted Date Diagnosed Date Resolved Date Diet controlled gestational diabetes mellitus (GDM) in third trimester 03/16/2021 07/10/2021 Abnormal glucose complicating 03/04/2021 03/16/2021 Overview: March 04, 2021 needs 3 hr. Cheli Dillard MD Antepartum anemia in third trimester 11/21/2020 07/10/2021 Encounter for supervision of other normal , first trimester 11/14/2020 07/10/2021 Nausea and vomiting of , antepartum 07/10/2021 Overview: December 15, 2020 Nausea improved, mostly when has heartburn. Cheli Dillard MD 11/13/2020atient is complaining of nausea and occasional vomiting in . Dietary considerations discussed . Vitamin B6 recommended. Advised patient to call/come in if she is unable to keep any food or fluids down in a 24-hour period. TKRN documented as of this encounter (statuses as of 11/26/2022) [facility] History of Past illness Narrative* Problem Noted Date Diagnosed Date Resolved Date Diet controlled gestational diabetes mellitus (GDM) in third trimester 03/16/2021 07/10/2021 Abnormal glucose complicating 03/04/2021 03/16/2021 Overview: March 04, 2021 needs 3 hr. Cheli Dillard MD Antepartum anemia in third trimester 11/21/2020 07/10/2021 Encounter for supervision of other normal , first trimester 11/14/2020 07/10/2021 documented as of this encounter (statuses as of 01/07/2023) [facility] History of Past illness Narrative* Problem Noted Date Diagnosed Date Resolved Date Diet controlled gestational diabetes mellitus (GDM) in third trimester 03/16/2021 07/10/2021 Abnormal glucose complicating 03/04/2021 03/16/2021 Overview: March 04, 2021 needs 3 hr. Cheli Dillard MD Antepartum anemia in third trimester 11/21/2020 07/10/2021 Encounter for supervision of other normal , first trimester 11/14/2020 07/10/2021 documented as of this encounter (statuses as of 01/11/2023) [facility] History of Past illness Narrative* Problem Noted Date Diagnosed Date Resolved Date Diet controlled gestational diabetes mellitus (GDM) in third trimester 03/16/2021 07/10/2021 Abnormal glucose complicating 03/04/2021 03/16/2021 Overview: March 04, 2021 needs 3 hr. Cheli Dillard MD Antepartum anemia in third trimester 11/21/2020 07/10/2021 Encounter for supervision of other normal , first trimester 11/14/2020 07/10/2021 documented as of this encounter (statuses as of 01/20/2023) [address]26-2022 History of Past illness Narrative* Problem Noted Date Resolved Date Abnormal glucose complicating 03/04/19 22 03/16/2021 Overview: March 04, 2021 needs 3 hr. Cheli Dillard MD documented as of this encounter (statuses as of 05/04/2021) [facility] History of Past illness Narrative* Problem Noted Date Resolved Date Abnormal glucose complicating 03/04/19 22 03/16/2021 Overview: March 04, 2021 needs 3 hr. Cheli Dillard MD documented as of this encounter (statuses as of 05/04/2021) [address]26-2022 History of Past illness Narrative* Problem Noted Date Resolved Date Abnormal glucose complicating 03/04/19 22 03/16/2021 Overview: March 04, 2021 needs 3 hr. Cheli Dillard MD documented as of this encounter (statuses as of 05/12/2021) [address]26-2022 History of Past illness Narrative* Problem Noted Date Resolved Date Abnormal glucose complicating 03/04/19 22 03/16/2021 Overview: March 04, 2021 needs 3 hr. Cheli Dillard MD documented as of this encounter (statuses as of 05/14/2021) [address]26-2022 History of Past illness Narrative* Problem Noted Date Resolved Date Abnormal glucose complicating 03/04/19 22 03/16/2021 Overview: March 04, 2021 needs 3 hr. Cheli Dillard MD documented as of this encounter (statuses as of 05/15/2021) [address]26-2022 History of Past illness Narrative* Problem Noted Date Resolved Date Abnormal glucose complicating 03/04/19 22 03/16/2021 Overview: March 04, 2021 needs 3 hr. Cheli Dillard MD documented as of this encounter (statuses as of 05/19/2021) [facility] History of Past illness Narrative* Problem Noted Date Resolved Date Abnormal glucose complicating 03/04/19 22 03/16/2021 Overview: March 04, 2021 needs 3 hr. Cheli Dillard MD documented as of this encounter (statuses as of 05/19/2021) [facility] History of Past illness Narrative* Problem Noted Date Resolved Date Abnormal glucose complicating 03/04/19 22 03/16/2021 Overview: March 04, 2021 needs 3 hr. Cheli Dillard MD documented as of this encounter (statuses as of 06/29/2021) [facility] note* Diagnosis Gestational diabetes mellitus, class A1- Primary Abnormal maternal glucose tolerance, complicating , childbirth, or the puerperium, unspecified as to episode of care 36 weeks gestation of state, incidental [facility] Diagnosis Malposition of fetus, single or unspecified fetus- Primary [facility] Diagnosis 38 weeks gestation of - Primary state, incidental GDM (gestational diabetes mellitus), class A1 Abnormal maternal glucose tolerance, complicating , childbirth, or the puerperium, unspecified as to episode of care [facility] Diagnosis Diet controlled gestational diabetes mellitus (GDM) in third trimester- Primary 39 weeks gestation of state, incidental [facility] Diagnosis 39 weeks gestation of - Primary state, incidental GDM (gestational diabetes mellitus), class A1 Abnormal maternal glucose tolerance, complicating , childbirth, or the puerperium, unspecified as to episode of care Constipation, unspecified constipation type [facility] Diagnosis care and examination- Primary Routine follow-up Encounter for initial prescription of contraceptive pills General counseling for prescription of oral contraceptives History of gestational diabetes mellitus Personal history of gestational diabetes History of gestational diabetes Personal history of gestational diabetes documented in this encounter [facility] note* Diagnosis Laryngitis- Primary Acute laryngitis, without mention of obstruction Sinobronchitis Unspecified sinusitis (chronic) documented in this encounter [facility] note* Diagnosis Viral illness- Primary Unspecified viral infection, in conditions classified elsewhere and of unspecified site documented in this encounter [facility] note* Diagnosis Sore throat- Primary Acute pharyngitis Strep pharyngitis Streptococcal sore throat documented in this encounter [facility] note* Diagnosis Vaginal yeast infection- Primary Candidiasis of vulva and vagina documented in this encounter [facility] note* Diagnosis Sore throat- Primary Acute pharyngitis Viral pharyngitis Acute pharyngitis documented in this encounter [facility] note* Diagnosis Encounter for gynecological examination (general) (routine) without abnormal findings- Primary documented in this encounter [facility] note* Diagnosis with uncertain dates in first trimester- Primary Encounter for supervision of other normal in first trimester 10 weeks gestation of state, incidental History of gestational diabetes mellitus Personal history of gestational diabetes Heartburn during in first trimester Nausea and vomiting during Asthma during Forceps or vacuum extractor delivery Forceps or vacuum extractor delivery without mention of indication, unspecified as to episode of care History of gestational diabetes Personal history of gestational diabetes Obesity affecting in first trimester, unspecified obesity type documented in this encounter [facility] note* Diagnosis Encounter to establish care with new doctor- Primary Other reasons for seeking consultation Depression screening Screening for depression History of gestational diabetes Personal history of gestational diabetes Numbness of foot Disturbance of skin sensation documented in this encounter [facility] course Narrative No data available for this section [facility] Reason for referral (narrative)* Diagnostic Procedure Only (Routine) - Pending Review Specialty Diagnoses / Procedures Referred By Nancy jaeger Referred To Contact [facility] Diagnoses Malposition of fetus, single or unspecified fetus Procedures OBSTETRIC ULTRASOUND WHI US PREG UTERUS AFTER 1ST TRIMEST 1 GESTATION Samy Delaney MD [address] [address] [address] [place] [address] Referral ID Status Reason Start Date Expiration Date Visits Requested Visits Authorized [id number] Pending Review Auto-Generat ed Referral 05/04/2021 05/04/2022 1 1 [facility] for referral (narrative)* Diagnostic Procedure Only (Routine) - Authorized Specialty Diagnoses / Procedures Referred By Contac t Referred To Contact [facility] Department Diagnoses 38 weeks gestation of GDM (gestational diabetes mellitus), class A1 Procedures OBSTETRIC ULTRASOUND WHI US PREG UTERUS AFTER 1ST TRIMEST GESTATION Marcia Beckett APRN.CNM [address] [place] [address] [facility] Referral ID Status Reason Start Date Expiration Date Visits Requested Visits Authorized [id number] Authorized Auto-Generate d Referral Patient Cleared - Qualified 100% FAS 05/12/2021 08/10/2021 99 99 [facility] for referral (narrative)* Outpatient Procedure (Routine) - Pending Review Specialty Diagnoses / Procedures Referred By Contac t Referred To Contact [facility] Diagnoses 39 weeks gestation of GDM (gestational diabetes mellitus), class A1 Procedures NON-STRESS TEST NON-STRESS TEST Cheli Dillard MD [address] [place] [address] [facility] [address] [place] [address] Referral ID Status Reason Start Date Expiration Date Visits Requested Visits Authorized [id number] Pending Review Auto-Generat ed Referral 05/19/2021 05/19/2022 1 1 [facility] Summary Purpose Family History No Family History Records Found No data available for this section No Family History Records FoundNo Family History Records Found No data available for this section No Family History Records FoundNo Family History Records Found Advance Directives No Advanced Directives Records FoundNo Advanced Directives Records FoundNo Advanced Directives Records FoundNo Advanced Directives Records FoundNo Advanced Directives Records Found Health Concerns Problem Noted Date Diagnosed Date [facility] Education - COMMON 01/07/2023 [place] - [place] 01/07/2023 Problem Noted Date Diagnosed Date [facility] Education - COMMON 01/07/2023 Education - [place] 01/07/2023 Problem Noted Date Diagnosed Date [facility] Education - [facility] 01/07/2023 Education - [place] 01/07/2023 Additional Source Comments Source Comments (unrecognize d section and content) In the event this informatio n is protected by the Federal Confidentiality of Alcohol and Drug Abuse Patient Records regulations: The Federal rules restrict any use of the information to criminally investigate or prosecute any alcohol or drug abuse patient.[facility] the event this information is protected by the Federal Confidentiality of Alcohol and Drug Abuse Patient Records regulations: The Federal rules restrict any use of the information to criminally investigate or prosecute any alcohol or drug abuse patient.[facility] Hospital[facility] the event this information is protected by the Federal Confidentiality of Alcohol and Drug Abuse Patient Records regulations: The Federal rules restrict any use of the information to criminally investigate or prosecute any alcohol or drug abuse patient.[facility] HospitalIn the event this information is protected by the Federal Confidentiality of Alcohol and Drug Abuse Patient Records regulations: The Federal rules restrict any use of the information to criminally investigate or prosecute any alcohol or drug abuse patient.[facility] HospitalIn the event this information is protected by the Federal Confidentiality of Alcohol and Drug Abuse Patient Records regulations: The Federal rules restrict any use of the information to criminally investigate or prosecute any alcohol or drug abuse patient.[facility] HospitalIn the event this information is protected by the Federal Confidentiality of Alcohol and Drug Abuse Patient Records regulations: The Federal rules restrict any use of the information to criminally investigate or prosecute any alcohol or drug abuse patient.[facility] HospitalIn the event this information is protected by the Federal Confidentiality of Alcohol and Drug Abuse Patient Records regulations: The Federal rules restrict any use of the information to criminally investigate or prosecute any alcohol or drug abuse patient.[facility] HospitalIn the event this information is protected by the Federal Confidentiality of Alcohol and Drug Abuse Patient Records regulations: The Federal rules restrict any use of the information to criminally investigate or prosecute any alcohol or drug abuse patient.[facility] HospitalIn the event this information is protected by the Federal Confidentiality of Alcohol and Drug Abuse Patient Records regulations: The Federal rules restrict any use of the information to criminally investigate or prosecute any alcohol or drug abuse patient.[facility] HospitalIn the event this information is protected by the Federal Confidentiality of Alcohol and Drug Abuse Patient Records regulations: The Federal rules restrict any use of the information to criminally investigate or prosecute any alcohol or drug abuse patient.[facility] HospitalIn the event this information is protected by the Federal Confidentiality of Alcohol and Drug Abuse Patient Records regulations: The Federal rules restrict any use of the information to criminally investigate or prosecute any alcohol or drug abuse patient.[facility] HospitalIn the event this information is protected by the Federal Confidentiality of Alcohol and Drug Abuse Patient Records regulations: The Federal rules restrict any use of the information to criminally investigate or prosecute any alcohol or drug abuse patient.[facility] HospitalIn the event this information is protected by the Federal Confidentiality of Alcohol and Drug Abuse Patient Records regulations: The Federal rules restrict any use of the information to criminally investigate or prosecute any alcohol or drug abuse patient.[facility] HospitalIn the event this information is protected by the Federal Confidentiality of Alcohol and Drug Abuse Patient Records regulations: The Federal rules restrict any use of the information to criminally investigate or prosecute any alcohol or drug abuse patient.[facility] HospitalIn the event this information is protected by the Federal Confidentiality of Alcohol and Drug Abuse Patient Records regulations: The Federal rules restrict any use of the information to criminally investigate or prosecute any alcohol or drug abuse patient.[facility] HospitalIn the event this information is protected by the Federal Confidentiality of Alcohol and Drug Abuse Patient Records regulations: The Federal rules restrict any use of the information to criminally investigate or prosecute any alcohol or drug abuse patient.[facility] HospitalIn the event this information is protected by the Federal Confidentiality of Alcohol and Drug Abuse Patient Records regulations: The Federal rules restrict any use of the information to criminally investigate or prosecute any alcohol or drug abuse patient.[facility] HospitalIn the event this information is protected by the Federal Confidentiality of Alcohol and Drug Abuse Patient Records regulations: The Federal rules restrict any use of the information to criminally investigate or prosecute any alcohol or drug abuse patient.[facility] HospitalIn the event this information is protected by the Federal Confidentiality of Alcohol and Drug Abuse Patient Records regulations: The Federal rules restrict any use of the information to criminally investigate or prosecute any alcohol or drug abuse patient.[facility] HospitalIn the event this information is protected by the Federal Confidentiality of Alcohol and Drug Abuse Patient Records regulations: The Federal rules restrict any use of the information to criminally investigate or prosecute any alcohol or drug abuse patient.[facility] Reason for Visit (unrecogniz ed section and content) Specialty Diagnoses / Procedures Referred By Contac t Referred To Contact [facility] Diagnoses 16 weeks gestation of Encounter for supervision of normal first in second trimester Procedures OBSTETRIC ULTRASOUND [facility] US-MATERNAL/ COMP. Cheli Villa MD [address] [place] [address] [facility] [address] [place] [address] Referral ID Status Reason Start Date Expiration Date Visits Requested Visits Authorized [id number] Authorized Auto-Generate d Referral Patient Cleared - Qualified HCAP/501/FA 02/10/2021 05/11/2021 99 99 Reason Comments Us Procedure Specialty Diagnoses / Procedures Referred By Contac t Referred To Contact [facility] Diagnoses 16 weeks gestation of Encounter for supervision of normal first in second trimester Procedures OBSTETRIC ULTRASOUND I US-MATERNAL/ COMP. Cheli Villa MD [address] [place] [address] [facility] [address] [place] [id number] Reason Onset Date Comments Population Health Navigation Outreach 05/12/2021 ob/peds Reason Onset Date Comments Care 05/12/2021 Specialty Diagnoses / Procedures Referred By Contac t Referred To Contact [facility]IST Diagnoses OB- PATIENT - 27 WEEKS- Procedures OFFICE VISIT, NEW PT., LEVEL 1 TC OB- PATIENT - 27 WEEKS Cheli Dillard MD [address] [place] [address] [employer] [address] [place] [address] Referral ID Status Reason Start Date Expiration Date Visits Requested Visits Authorized [id number] Pending Review OON/Self Pay Override Patient Cleared - Qualified HCAP/501/FA 02/25/2021 05/26/2021 99 99 Reason Comments US Specialty Diagnoses / Procedures Referred By Contac t Referred To Contact [facility] Department Diagnoses 38 weeks gestation of GDM (gestational diabetes mellitus), class A1 Procedures OBSTETRIC ULTRASOUND WHI US PREG UTERUS AFTER 1ST TRIMEST GESTATION Marcia Beckett APRN.CN [address] [place] [address] [facility] Dept Referral ID Status Reason Start Date Expiration Date Visits Requested Visits Authorized [id number] Authorized Auto-Generate d Referral Patient Cleared - Qualified 100% FAS 05/12/2021 08/10/2021 99 99 Reason Onset Date Comments Care 05/19/2021 Specialty Diagnoses / Procedures Referred By Contac t Referred To Contact ENDOCRINOLOGY Diagnoses Abnormal maternal glucose tolerance, antepartum Procedures CONSULT TO DIABETES EDUCATION OFFICE/OUTPATIENT [facility] MDM 60-74 MINUTES Cheli Dillard MD [address] [place] [address] [facility] [address] [address] Referral ID Status Reason Start Date Expiration Date Visits Requested Visits Authorized [id number] Authorized Financial Clearance Required - Self Pay Patient Cleared - Qualified 100% FAS 03/26/2021 06/23/2021 99 99 Reason Comments Appointment Reason Comments Care Reason Comments Sore Throat Headache, cough, los s of voice x 2 days Reason Comments Cough 2 days Reason Comments Cough Started 3 days ago Fever Started 3 days ago Sore Throat Started 3 days ago Headache Started 3 days ago Reason Comments Patient Update Needs time off from work. Reason Comments Vaginal Discharge White vaginal discha rge vaginal itch started last night . Patient is on antibiotics. Reason Comments Cough Started 2 days ago Sore Throat Started 2 days ago P atient has loss of voice Reason Comments Yearly Exam Reason Comments Initial OB Visit Reason Comments PRAF Reason Comments Establish Care INFORMATION SOURCE (unrecogn ized section and content) DATE CREATED AUTHOR AUTHOR'S ORGANIZ ATION 01/21/2023 [facility] DATE CREATED AUTHOR AUTHOR'S ORGANIZ ATION 02/05/2023 [facility] DATE CREATED AUTHOR AUTHOR'S ORGANIZ ATION 02/15/2023 [facility] DATE CREATED AUTHOR AUTHOR'S ORGANIZ ATION 02/17/2023 [facility] Care Teams (unrecognized sec tion and content) Edge Drummer Relationship Specialty Start Date End Date Katrina Chacon, GARDE MANGER.COLLECTION TECHNICIAN [address] [place] [phone] PCP - General Family Medicine 06/16/22 Edge Drummer Relationship Specialty Start Date End Date Katrina Chacon, GARDE MANGER.COLLECTION TECHNICIAN [address] [place] [phone] PCP - General Family Medicine 06/16/22 Edge Drummer Relationship Specialty Start Date End Date Katrina Chacon, GARDE MANGER.COLLECTION TECHNICIAN [address] [place] [phone] PCP - General Family Medicine 06/16/22 Edge Drummer Relationship Specialty Start Date End Date Katrina Chacon, GARDE MANGER.COLLECTION TECHNICIAN [address] [place] [phone] PCP - General Family Medicine 06/16/22 Edge Drummer Relationship Specialty Start Date End Date Katrina Chacon APRN.COLLECTION TECHNICIAN [address] [place] [phone] PCP - General Family Medicine 06/16/22 Edge Drummer Relationship Specialty Start Date End Date Katrina Chacon, GARDE MANGER.COLLECTION TECHNICIAN [address] [place] [phone] PCP - General Family Medicine 06/16/22 Edge Drummer Relationship Specialty Start Date End Date Harpreet Shankar MD [address] [place] [address] PCP - General Family Medicine 01/19/23 FOR RECORDS PERTAINING TO PATIENTS WHO ARE OR HAVE BEEN ENROLLED IN A CHEMICAL DEPENDENCY/SUBSTANCEABUSE PROGRAM, SOME INFORMATION MAY BE OMITTED. This clinical summary was aggregated from multiple sources. Caution should be exercised in using it in the provision of clinical care. This summary normalizes information from multiple sources, and as a consequence, information in this document may materially change the coding, format and clinical context of patient data. In addition, data may be omitted in some cases. CLINICAL DECISIONS SHOULD BE BASED ON THE PRIMARY CLINICAL RECORDS. [facility]. provides no warranty or guarantee of the accuracy or completeness of information in this document.
[2023-02-18 09:15] VITALS: BP 117/72; PULSE 94; RESP 16; TEMP 37.1; O2SAT 99; BMI 34.5
[2023-02-18 09:26] LABS: Hematocrit 37.4 % (37-47); Hemoglobin 12.1 g/dL (12.0-15.0); Mean Corp Hgb Conc 32.4 g/dL (32-36); Mean Corpuscular Hgb 28.5 pg (27.0-32.0); Mean Corpuscular Volume 88.2 fL (81-99); Mean Platelet Vol. 10.2 fl (6.2-12.0); Platelet Count 202 K/mm3 (150-450); RBC Distribution Width CV 13.5 % (11.6-14.6); RBC Distribution Width SD 42.9 fl (35.1-43.9); Red Blood Count 4.24 M/mm3 (4.2-5.4); White Blood Count 6.8 K/mm3 (4.4-11.0)
[2023-02-18] MEDS: Acetaminophen 500 MG Tablet 1000 MG PO (09:26)
[2023-02-18] MEDS: Ketorolac 30 MG/ML Syringe IV (09:27)
[2023-02-18] MEDS: Doxycycline 100 MG CAPSULE 200 MG PO (09:27)
[2023-02-18] MEDS: Lactated Ringers 1,000 ML 15 ML IV (09:31)
[2023-02-18 09:58] LABS: hCG Titer Quant., Serum 29419 mIU/mL (1-3)
[2023-02-18] MEDS: Lidocaine 1% /Epi 1:100 (20ml) 20 ML Vial (11:40)
--- NOTE | 2023-02-18 11:54 | PCM.OPRPT ---
Problems Associated Problem List Diagnoses (1) 16 weeks gestation of : (2) Missed : Report of Operation Date of Procedure: 02/18/23 Pre-Operative Diagnosis: missed 16 week Post-Operative Diagnosis: same Surgery/Procedure Performed:: suction dilation and curettage Description of Surgical Findings:: enlarged 13 week size uterus, US before surgery in preop confirmed 13 week size embryo without cardiac activity Surgeon: Vernell Terrazas global chief creative officer: [place] PAstsofia Type of Anesthesia: MAC/Supplemental/Local Anesthesiologist: Grey Gaona Special Medications: none Specimen's removed: products of conception Drains: none Estimated Blood Loss (mL): 20 Fluids Replaced: 1200 Description of Procedure: The patient was taken to the operating room where she was prepped and draped in a dorsolithotomy position. A bimanual examination was done and confirmed the uterus to be 13 weeks size and anteverted. A weighted speculum was placed in the vagina and the anterior lip of the cervix was grasped with a single-tooth tenaculum. The cervix was dilated serially. A 14 mm suction curette was placed to the uterine fundus and the suction was created. Ultrasound guidance was used during the entire procedure. Several passes were made to remove clots and products of conception. When minimal tissue was returning a gentle sharp curettage was then done of the uterine cavity. The uterine cry was appreciated and another gentle pass was made with the suction curette. The ultrasound confirmed a bright white endometrial stripe less than 1 cm in size. No clots or debris noted in the uterus. No active bleeding from the cervical os. The instruments removed from the cervix and the cervix was observed and no active bleeding was identified. The tenaculum was removed off the cervix and hemostasis of the tenaculum site was assured. Made of the instruments removed from the vagina and the vaginal sweep was completed by me. Sponge and needle counts were correct. The patient was taken to the recovery room in stable condition. Findings: 13 week size uterus, normal cervix and vagina. Specimen: Products of conception Grafts/Implants Used: none Procedure Start Time: 11:40 Procedure Stop Time: 11:47 Complications none Admit VTE Documentation VTE Present on Admission: No VTE Mechan Device Prophylaxis: SCD's VTE Pharm Prophylaxis ordered?: No
--- NOTE | 2023-02-18 11:58 | PCM.DC ---
Discharge Instructions Diet Discharge Diet: No restrictions Activity Discharge Activity: May Take a Tub Bath (in 2 weeks) Return to work on:: 02/21/23 May shower in (days): 1 May resume sexual activity in: 2 weeks Lifting Restrictions: none Dressing / Incision Call your doctor if your incision/area has: Sudden Increased Bleeding and Foul Smelling Discharge Call your doctor if you observe: Fever of 101 or Higher and Using more than 1 pad per hour (for 2 hrs in a row) Follow Up Care Please Follow Up With: Vernell Terrazas MD When: Keep your postop appointment. Call [phone] or send a [employer] message with nonurgent questions. Test Results: Test results from this visit will be discussed in further detail at your follow-up appointment, if applicable. Discharge Plan Admission Primary Reason for Your Visit: Suction Dilation and Curretage for Miscarriage Attending Provider: Vernell Terrazas Primary Care Provider: HARPREET SHANKAR Discharge Orders/Prescriptions Prescriptions: New acetaminophen [Acetaminophen Extra Strength] 500 mg tablet 1,000 mg PO Q6H PRN (Reason: fever or pain) 10 Days Qty: 20 0RF ibuprofen [ibuprofen] 600 MG tablet 600 mg PO Q6H PRN (Reason: Pain) 7 Days Qty: 30 1RF doxycycline monohydrate 100 mg tablet 100 mg PO BID 2 Days Qty: 4 0RF Continued [id number] 1 mg Tablet 1 tab PO DAILY vitamin B6-vitamin E-magnesium Tablet 1 tab PO PRN PRN (Reason: nausea) Referrals / Follow Up: González Macias MD [Med Staff - Active Staff] - Disposition Disposition (needs filled in before D/C Order can be placed): Home, Self Care
[2023-02-18 12:00] VITALS: BP 117/72; BP 119/59; PULSE 119; RESP 16; TEMP 37.1; O2SAT 93
[2023-02-18 12:05] VITALS: BP 112/57; BP 117/72; PULSE 105; RESP 16; O2SAT 95
[2023-02-18 12:15] VITALS: BP 117/72; BP 119/70; PULSE 107; RESP 16; TEMP 36.6; O2SAT 96
== END 2023-02-18 13:14 | disposition home or self-care (01) ==
LOC: SDC 08:22 → AC 08:23
PROVIDERS: Referring Provider Obstetrics & Gynecology; Visit Provider Obstetrics & Gynecology
PROC: (CPT 59821; principal; 2023-02-18 09:50)
DX: O02.1 Missed abortion (principal)
CPT/HCPCS: 59821; 01965; 84702; 85027; 88305; J7120; J2405

== ENCOUNTER 2023-12-30 09:53 | Inpatient (IN) | payer MEDICAID, SELFPAY ==
[2023-12-30] VITALS (30 sets, daily range): BP systolic 101–123; BP diastolic 53–99; PULSE 79–111; RESP 15–24; TEMP 36.1–37.2; O2SAT 90–99; BMI 37.2
[2023-12-30] MEDS: Lactated Ringers 1,000 ML 999 ML IV (10:10)
[2023-12-30 10:32] LABS: Absolute Lymphocyte Count 1.81 X10^3/uL (0.83-4.51); Absolute Neutrophil Count 5.5 X10^3/uL (2.0-7.7); Basophil# 0.01 X10^3/uL; Basophil% 0.1 % (0-1); Eosinophil# 0.09 X10^3/uL; Eosinophils% 1.1 % (0-5); Hematocrit 33.3 % (37-47); Hemoglobin 10.6 g/dL (12.0-15.0); Lymphocyte # 1.81 X10^3/ul (0.83-4.51); Lymphocyte % 22.3 % (19-41); Mean Corp Hgb Conc 31.8 g/dL (32-36); Mean Corpuscular Hgb 28.6 pg (27.0-32.0); Mean Platelet Vol. 10.5 fl (6.2-12.0); Monocyte# 0.64 X10^3/uL; Monocyte% 7.9 % (0-10); NRBC Flagged by Analyzer 0 % (0-5); Neutrophil # 5.51 X10^3/uL (2.7-7.7); Neutrophil % 67.9 % (47-70); Platelet Count 144 K/mm3 (150-450); RBC Distribution Width CV 15.5 % (11.6-14.6); RBC Distribution Width SD 50.5 fl (35.1-43.9); White Blood Count 8.1 K/mm3 (4.4-11.0)
--- OUTSIDE RECORDS SUMMARY | 2023-12-30 10:49 | XMS RPT_ITS | CCD ---
Author Organization [facility] Care Team Providers Care Supervisor Quality Control Name Role Phone Unavailable Primary Care Provider Unavailankit Roper THEATRE ARTS PROFESSOR.Katrina SAHNI Primary Care Provider PHYSICIAN, NONE Primary Care Physician Unavailab carissa Shankar MD, Harpreet Smith Primary Care Provider HARPREET SHANKAR Primary Care Unavailable LORETO MOSS Admitting Unavailable ARTURO LUDWIG Attending Unavailable HARPREET SHANKAR Attending Unavailable HARPREET SHANKAR Primary Care Unavailable Harpreet Shankar MD Primary Care Provider PHYSICIAN, PATIENT UNSURE Primary Care Physician Unavailable PHYSICIAN, PATIENT UNSURE Primary Care AVIS Caban MD Attending Unavailable LUISA MAIER, DR IAN Tabares Attending Lizzy flowers PHYSICIAN, NONE Primary Care Unavailable BARBARA GALLARDO MD Attending Unavailable HARPREET SHANKAR Primary Care Unavailable LG MUNSON Referring Unavailable KATRINA ROPER Primary Care Unavailable ARLEEN TURNER Attending Unavailable HARPREET SHANKAR Primary Care Unavailable DENISE COTTON Attending Unavailable HARPREET SHANKAR Primary Care Unavailable RAMSAY, SON N Attending Unavailable SELF Referring Unavailable HARPREET SHANKAR Primary Care Unavailable HORACE TORRES Attending Unavailable SELF Referring Unavailable HARPREET SHANKAR Primary Care Unavailable ARELIS TAPIA Attending Unavailable HARPREET SHANKAR Primary Care Unavailable NATE AVILES Attending Unavailable HARRISON CAM Referring Unavailable HARPREET SHANKAR Primary Care Unavailable MELONY PINEDA Referring Unavailable HARPREET SHANKAR Primary Care Unavailable LUIS LUI Attending Unavailankit cox PHYSICIAN, PATIENT UNSURE Primary Care Lizzy Power THEATRE ARTS PROFESSOR.Camila SAHNI Unavailable [phone] LINH ZIMMERMAN Attending Unavail able SHANKAR, SINGH Primary Care Unavailable WISWELL, LG Attending Unavailable SHANKAR, SINGH Primary Care Unavailable SHANKAR, SINGH Primary Care Unavailable HARRISON CAM Referring Unavailable SHANKAR, SINGH Primary Care Unavailable HARRISON CAM Attending Unavailable BRENNA ALTAMIRANO Attending Unavailable NOLING, KATRINA L Primary Care Unavailable SHANKAR, SINGH Primary Care Unavailable CHELI DILLARD Attending Unavailable SHANKAR, SINGH Primary Care Unavailable HARRISON CAM Attending Unavailable SHANKAR, SINGH Primary Care Unavailable HARRISON CAM Referring Unavailable SHANKAR, SINGH Primary Care Unavailable DORINAHARRISON Referring Unavailable SHANKAR, SINGH Primary Care Unavailable HARRISON CAM Referring Unavailable SHANKAR, SINGH Primary Care Unavailable HARRISON CAM Attending Unavailable SHANKAR, SINGH Primary Care Unavailable HARRISON CAM Referring Unavailable SHANKAR, SINGH Primary Care Unavailable CHELI DILLARD Attending Unavailable SHANKAR, SINGH Primary Care Unavailable CHELI DILLARD Attending Unavailable SHANKAR, SINGH Primary Care Unavailable EFRAIN MONTES DE OCA Attending Unavailable HARRISON CAM Referring Unavailable WISWELLLG Attending Unavailable SHANKAR, SINGH Primary Care Unavailable SHANKAR, SINGH Primary Care Unavailable HARRISON CAM Referring Unavailable BRENNA ALTAMIRANO Referring Unavailable WISWELLLG Attending Unavailable EDILING, KATRINA L Primary Care Unavailable MAGGIEWELLJANNAA Referring Unavailable SHANKAR, SINGH Primary Care Unavailable SHANKAR, SINGH Primary Care Unavailable WISWELL, LG Referring Unavailable SHANKAR, SINGH Primary Care Unavailable SHANKAR, SINGH Primary Care Unavailable HARRISON CAM Attending Unavailable SHANKAR, SINGH Primary Care Unavailable LINH ZIMMERMAN Attending Unavail able SHANKAR, SINGH Primary Care Unavailable SHANKAR, SINGH Primary Care Unavailable HARRISON CAM Attending Unavailable SHANKAR, SINGH Primary Care Unavailable MELONY PINEDA Referring Unavailable MAGGIEWELLLG Referring Unavailable SHANKAR, SINGH Primary Care Unavailable SHANKAR, SINGH Primary Care Unavailable EFRAIN MONTES DE OCA Referring Unavailable SHANKAR, SINGH Primary Care Unavailable MAGGIEWELL, LG Referring Unavailable SHANKAR, SINGH Primary Care Unavailable HABRENNA HYATT Referring Unavailable NOLING, KATRINA L Primary Care Unavailable SHANKAR, SINGH Primary Care Unavailable CHELI DILLARD Referring Unavailable SHANKAR, SINGH Primary Care Unavailable SHANKAR, SINGH Primary Care Unavailable MELONY PINEDA Attending Unavailable SHANKAR, SINGH Primary Care Unavailable MELONY PINEDA Referring Unavailable HARRISON CAM Attending Unavailable HARPREET SHANKAR Primary Care Unavailable MELONY PINEDA Attending Unavailable HARPREET SHANKAR Primary Care Unavailable MELONY PINEDA Referring Unavailable LG MUNSON Referring Unavailable HARPREET SHANKAR Primary Care Unavailable Medications Current Medications Medication Drug Class(es) Dates Sig (Normalized) Sig (Original) Acetaminophen (20 sources) acetaminophen (T YLENOL ORAL) Take by mouth as needed. Active acetaminophen (T YLENOL ORAL) Take by mouth as needed. 0 Active acetaminophen 325 mg / oxyCODONE hydrochloride 5 [...] Status: Ordered amoxicillin 875 mg oral tablet (6 sources) Penicillin-class Antibacterial Start: 06-13-2023 End: 06-23-2023 take 1 tablet by mouth twice daily amoxicillin (AMOXIL) 875 mg tablet Indications: Non-recurrent acute serous otitis media of both ears , Pharyngitis, unspecified etiology Take 1 tablet by mouth two times a day for 10 days. 20 tablet 0 06/13/2023 06/23/2023 Active Start: 04-03-2023 End: 04-13-2023 take 1 tablet by mouth every twelve hours amoxicillin (AMOXIL) 875 mg tablet Indications: Sinobronchitis Take 1 tablet by mouth every 12 hours for 10 days. 20 tablet 0 04/03/2023 04/13/2023 Active Start: 07-06-2022 End: 07-16-2022 take 1 tablet by mouth twice daily amoxicillin (AMOXIL) 875 mg tablet Indications: Strep pharyngitis Take 1 tablet by mouth twice daily for 10 days. 20 tablet 0 07/06/2022 07/16/2022 Active Start: 11-30-2021 End: 12-10-2021 take 1 tablet by mouth twice daily amoxicillin (AMOXIL) 875 mg tablet Indications: Laryngitis , Sinobronchitis Take 1 tablet by mouth twice daily for 10 days. 20 tablet 0 11/30/2021 12/10/2021 Active Comment on above: Take 1 tablet by rose twice daily for 10 days. Take 1 tablet by rose every 12 hours for 10 days. benzonatate 100 mg oral capsule (2 sources) Non-narcotic Antitussive Start: 2 End: take 1 capsule by mouth every eight hours as needed benzonatate (TESSALON PERLES) 100 mg capsule Take 1 capsule by mouth three times daily as needed for cough for up to 10 days. 30 capsule 0 12/27/2021 01/06/2022 Active Start: 11-30-2021 End: 12-07-2021 take 2 capsules by mouth three times daily as needed benzonatate (TESSALON PERLES) 100 mg capsule Indications: Laryngitis , Sinobronchitis Take 2 capsules by mouth three times daily as needed for up to 7 days. 42 capsule 0 11/30/2021 12/07/2021 Active Comment on above: Take 2 capsules by m [facility] three times daily as needed for up to 7 days. Take 1 capsule by mo [facility] three times daily as needed for cough for up to 10 days. Blood-Glucose Meter (1 source) Start: 10-28-2023 End: 10-29-2023 Blood-Glucose Meter Indications: Gestational diabetes mellitus (GDM), antepartum, gestational diabetes method of control unspecified Use as directed to check glucose levels up to seven times daily. 1 Each 10/28/2023 10/29/2023 Active cephalexin 500 mg oral capsule (1 source) Cephalosporin Antibacterial Start: 11-02-2022 End: 11-07-2022 cephalexin 500 mg oral capsule Dose : 500 mg = 1 cap(s), Oral, q12h, X 5 day(s), # 10 cap(s), 0 Refill(s), 11/07/22 6:10:00 PM EDT, 84.1 Start Date: 11/02/22 Stop Date: 11/07/22 Status: Ordered cranberry fruit extract (CRANBERRY EXTRACT ORAL) (20 sources) cranberry fruit extract (CRANBERRY EXTRACT ORAL) Take by mouth. Active cranberry fruit extract (CRANBERRY EXTRACT ORAL) Take by mouth. 0 Active diphenhydrAMINE (20 sources) Histamine-1 Receptor Antagonist diphenhydramine HCl (UNISOM, DIPHENHYDRAMINE, ORAL) Take by mouth. Active diphenhydramine HCl (UNISOM, DIPHENHYDRAMINE, ORAL) Take by mouth. 0 Active docusate sodium 100 mg oral capsule (20 sources) Start: 08-16-2023 take 1 capsule by mouth twice daily docusate sodium (COLACE) 100 mg capsule Take 1 capsule by mouth two times a day. 90 capsule 2 08/16/2023 Active Start: 12-19-2020 End: 05-19-2021 take 1 capsule by mouth twice daily docusate sodium (COLACE) 100 mg capsule Indications: Constipation, unspecified constipation type Take 1 capsule by mouth twice daily. 60 capsule 0 05/19/2021 Active Comment on above: Take 1 capsule by mo [facility] twice daily. ferrous sulfate 325 mg oral tablet (20 sources) Start: 02-23-2023 take 1 tablet by mouth twice daily ferrous sulfate (IRON) 325 mg (65 mg iron) tablet Take 1 tablet by mouth two times a day. 30 tablet 3 02/23/2023 Active ferrous sulfate (IRON ORAL) Take by mouth. 0 Active Comment on above: Take by mouth. Take 1 tablet by [facility] two times a day. Miconazole (1 source) Azole Antifungal Start: 01-02-20 End: 01-09-20 miconazole nitrate (MONISTAT 7) 2 % (100 mg)- 2 % (9 gram) cpfc Use 1 Applicator vaginally once daily for 7 days. 44 g 0 01/01/2023 01/08/2023 Active Comment on above: Use 1 Applicator vag inally once daily for 7 days. ondansetron 4 mg disintegrating oral tablet (1 source) Serotonin-3 Receptor Antagonist Start: 11-03-19 End: 11-06-19 ondansetron 4 mg oral tablet, disintegrating Dose : 4 mg = 1 tab(s), Oral, q6h, PRN Nausea/Vomiting, X 3 day(s), # 20 tab(s), 0 Refill(s), 11/05/22 6:10:00 PM EDT Start Date: 11/02/22 Stop Date: 11/05/22 Status: Ordered polyethylene glycol 3350 89547 mg powder for oral solution (20 sources) Osmotic Laxative Start: 08-16-19 polyethylene glycol 3350 (MIRALAX) 17 gram packet Take 1 Packet by mouth once daily. Dissolve dose in 4 - 8 ounces of liquid and take as directed. 20 Each 1 08/16/2023 Active multivitamin (CLASSIC ) 28 mg iron- 800 mcg tab(s) (20 sources) take 1 tablet by mouth once daily multivitamin (CLASSIC ) 28 mg iron- 800 mcg tab(s) Take 1 tablet by mouth once daily. Active take 1 tablet by mouth once [facility] multivitamin (CLASSIC ) 28 mg iron- 800 mcg tab(s) Take 1 tablet by mouth once daily. 0 Active Comment on above: Take 1 tablet by rose th once daily. pyridoxine HCl, vitamin B6, (VITAMIN B-6 ORAL) (20 sources) pyridoxine HCl, vitamin B6, (VITAMIN B-6 ORAL) Take by mouth. Active pyridoxine HCl, vitamin B6, (VITAMIN B-6 ORAL) Take by mouth. 0 Active Completed/Discontinued Medications Medication Drug Class(es) Dates Sig (Normalized) Sig (Original) aspirin 81 mg delayed release oral tablet (20 sources) Platelet Aggregation Inhibitor, Nonsteroidal Anti-inflammatory Drug Start: 11-14-2020 take 1 tablet by mouth once daily aspirin, enteric coated (ECOTRIN LOW STRENGTH) 81 mg EC tablet Indications: Encounter for care in first trimester of first , Encounter for supervision of other normal , first trimester , 12 weeks gestation of Take 1 tablet by mouth once daily. 0 11/14/2020 Active take 1 tablet by mouth once [facility] aspirin 81 mg cap Take 1 tablet by mouth once daily. Active Comment on above: Take 1 tablet by rose th once daily. azithromycin 250 mg oral tablet (2 sources) Macrolide Antimicrobial Start: 02-07-20 End: 02-11-19 take 1 tablet by mouth once daily Zithromax Z-Ede 250 mg oral tablet 1 dose, Oral, Daily, # 6 tab(s), 0 Refill(s), 84.1 Start Date: 02/06/23 Stop Date: 02/11/23 Status: Ordered brompheniramine maleate 0.4 mg/ml / dextromethorphan hydrobromide 2 mg/ml / pseudoephedrine hydrochloride 6 mg/ml oral solution (5 sources) alpha-Adrenergic Agonist, Uncompetitive F-flxipp-A-aspartate Receptor Antagonist, Sigma-1 Agonist Start: 03-19-19 24 End: 06-06-19 24 take 10 mL by mouth four times daily as needed Brompheniramine-Pse udoeph-DM (BROMFED DM) 2-30-10 mg/5 mL syrup Indications: URI with cough and congestion Take 10 mL by mouth four times a day as needed. 118 mL 0 03/19/2023 06/06/2023 Discontinued (Course of therapy completed) Comment on above: Take 10 mL by mouth four times a day as needed. Cranberry preparation (20 sources) Non-Standardized Food Allergenic Extract, Non-Standardized Plant Allergenic Extract End: 03-19-19 CRANBERRY EXTRACT (CRANBERRY ORAL) Take by mouth once daily. Sometimes forgets to take it 0 03/19/2023 Discontinued CRANBERRY EXTRAC T (CRANBERRY ORAL) Take by mouth once daily. Sometimes forgets to take it 0 Active CRANBERRY EXTRAC T (CRANBERRY ORAL) Take by mouth. 0 Active Comment on above: Take by mouth. Take by mouth once d aily. Sometimes forgets to take it drospirenone, contraceptive, (SLYND) 4 mg (28) tabet (8 sources) Start: 2 take 1 tablet by mouth once daily drospirenone, contraceptive, (SLYND) 4 mg (28) tabet Indications: Encounter for initial prescription of contraceptive pills Take 1 tablet by mouth once daily. 30 tablet 11 07/10/2021 Active Comment on above: Take 1 tablet by rose th once daily. fluconazole 150 mg oral tablet (1 source) Azole Antifungal Start: 3 End: 3 take 1 tablet by mouth once fluconazole (DIFLUCAN) 150 mg tablet Take 1 tablet by mouth one time only for 1 dose. 2 tablet 0 07/12/2022 07/12/2022 Comment on above: Take 1 tablet by rose th one time only for 1 dose. 10 ml iron sucrose 20 mg/ml injection (2 sources) Parenteral Iron Replacement Start: 4 End: 4 200 mg, INTRAVENOUS, ONCE, 1 dose, On Tue12/15/23 at 1000, May administer up to 200 mg via IV push over 5-10 minutes. Please conduct a 30 minute post-dose observation. Start: 12-08-2023 End: 12-08-2023 200 mg, INTRAVENOUS, ONCE, 1 dose, On Tue12/08/23 at 1200, May administer up to 200 mg via IV push over 5-10 minutes. Please conduct a 30 minute post-dose observation. iron sucrose iv piggyback 20 0 mg in NaCl 0.9% 100 mL (VENOFER) (3 sources) Start: 11-10-2023 End: 11-10-2023 200 mg, INTRAVENOUS, at 400 mL/hr, Administer over 15 Minutes, ONCE, 1 dose, On Tue11/10/23 at 1230, Please conduct a 30 minute post-dose observation. Refrigerate Start: 11-08-2023 End: 11-08-2023 200 mg, INTRAVENOUS, at 400 mL/hr, Administer over 15 Minutes, ONCE, 1 dose, On Tue11/08/23 at 1530, Please conduct a 30 minute post-dose observation. Refrigerate Start: 11-03-2023 End: 11-03-2023 200 mg, INTRAVENOUS, at 400 mL/hr, Administer over 15 Minutes, ONCE, 1 dose, On Tue11/03/23 at 1000, Please conduct a 30 minute post-dose observation. Refrigerate predniSONE 10 mg oral tablet (4 sources) Start: 03-29-2023 End: 06-06-2023 take 1 tablet by mouth once daily predniSONE (DELTASONE) 10 mg tablet Indications: Dermatitis Take 1 tablet by mouth once daily. TAKE 40 MG (4tabs) FOR TWO DAYS, THEN 20 MG (2tabs) FOR TWO DAYS, THEN 10 MG (1tab) FOR TWO DAYS 14 tablet 0 03/29/2023 06/06/2023 Discontinued (Course of therapy completed) Comment on above: Take 1 tablet by [facility] once daily. TAKE 40 MG (4tabs) FOR TWO DAYS, THEN 20 MG (2tabs) FOR TWO DAYS, THEN 10 MG (1tab) FOR TWO DAYS Problems Active Problems Problem Classification Problem Date Documented Da te Episodic/Chronic Abdominal pain (1 source) Abdominal pain; Translations: [Unspecified abdominal pain] Onset: 11-02-2022 Episodic Administrative/social admission (1 source) Persons encountering health services in other specified circumstances; Translations: [Encounter to establish care with new doctor] Onset: 01-19-2023 Episodic Contraceptive and procreative management (8 sources) Patient encounter status; Translations: [Encounter for initial prescription of contraceptive pills] Episodic Deficiency and other anemia (1 source) Iron deficiency anemia, unspecified; Translations: [Maternal iron deficiency anemia complicating , third trimester] Onset: 10-26-2023 Episodic Diabetes or abnormal glucose tolerance complicating ; childbirth; or the puerperium (20 sources) Gestational diabetes mellitus, class A>1<; Translations: [Gestational diabetes mellitus in , diet controlled] Onset: 03-04-2021 Resolved: 11-24-2023 Episodic Fluid and electrolyte disorders (1 source) Hypokalemia; Translations: [Hypokalemia] Onset: 06-27-2023 Episodic Immunizations and screening for infectious disease (2 sources) Needs influenza immunization; Translations: [Encounter for immunization] 11-10-2023 Episodic Malposition; malpresentation (1 source) Finding of malposition of fetus; Translations: [Maternal care for malpresentation of fetus, unspecified, not applicable or unspecified] Episodic Mycoses (1 source) Candidiasis of vagina; Translations: [Vaginal yeast infection] Episodic Other complications of (8 sources) Anemia during - baby not yet delivered; Translations: [Anemia complicating , third trimester] Onset: 11-21-2020 03-16-2021 Chronic Other complications of (20 sources) Maternal obesity complicating , childbirth and the puerperium, antepartum; Translations: [Obesity complicating , first trimester] Onset: 01-07-2023 Resolved: 02-11-2023 01-07-2023 Chronic Other complications of (20 sources) Anemia of ; Translations: [Anemia complicating , third trimester] Onset: 11-21-2020 Resolved: 07-10-2021 07-10-2021 Chronic Other complications of (1 source) Anemia complicating , second trimester; Translations: [Anemia during in second trimester] Onset: 10-14-2023 Chronic Other complications of (20 sources) Anemia in mother complicating , childbirth AND/OR puerperium; Translations: [Anemia complicating , third trimester] Onset: 10-26-2023 10-26-2023 Chronic Other complications of (3 sources) Anemia complicating , third trimester; Translations: [Anemia complicating , third trimester] Onset: 10-26-2023 Chronic Other complications of (20 sources) High risk ; Translations: [Supervision of high risk , unspecified, first trimester] Onset: 06-06-2023 Resolved: 07-29-2023 06-06-2023 Episodic Other complications of (20 sources) Benign gestational thrombocytopenia; Translations: [Other diseases of the blood and blood-forming organs and certain disorders involving the immune mechanism complicating , second trimester] Onset: 10-14-2023 10-14-2023 Episodic Other complications of (1 source) Supervision of high risk , unspecified, first trimester; Translations: [Encounter for supervision of high risk in first trimester, antepartum] Onset: 11-30-2023 Episodic Other gastrointestinal disorders (1 source) Constipation; Translations: [Constipation, unspecified] Episodic Other gastrointestinal disorders (1 source) Diarrhea; Translations: [Diarrhea, unspecified] Onset: 06-27-2023 Episodic Other nervous system disorders (1 source) Numbness of foot ; Translations: [Anesthesia of skin] 01-19-2023 Episodic Other upper respiratory infections (3 sources) Chronic sinusitis; Translations: [Chronic sinusitis, unspecified] Onset: 04-03-2023 Chronic Residual codes; unclassified (2 sources) Gestation period, 36 weeks; Translations: [36 weeks gestation of ] Episodic Residual codes; unclassified (1 source) Gestation period, 38 weeks; Translations: [38 weeks gestation of ] Episodic Residual codes; unclassified (2 sources) Gestation period, 39 weeks; Translations: [39 weeks gestation of ] Episodic Residual codes; unclassified (2 sources) Gestation period, 8 weeks; Translations: [8 weeks gestation of ] 06-06-2023 Episodic Residual codes; unclassified (1 source) Gestation period, 9 weeks; Translations: [9 weeks gestation of ] 06-13-2023 Episodic Residual codes; unclassified (1 source) Gestation period, 12 weeks; Translations: [12 weeks gestation of ] 07-05-2023 Episodic Residual codes; unclassified (1 source) Gestation period, 13 weeks; Translations: [13 weeks gestation of ] 07-12-2023 Episodic Residual codes; unclassified (1 source) Gestation period, 16 weeks; Translations: [16 weeks gestation of ] 07-29-2023 Episodic Residual codes; unclassified (2 sources) Gestation period, 18 weeks; Translations: [18 weeks gestation of ] 08-16-2023 Episodic Residual codes; unclassified (2 sources) Gestation period, 22 weeks; Translations: [22 weeks gestation of ] 09-15-2023 Episodic Residual codes; unclassified (2 sources) Gestation period, 26 weeks; Translations: [26 weeks gestation of ] 10-13-2023 Episodic Residual codes; unclassified (1 source) Gestation period, 28 weeks; Translations: [28 weeks gestation of ] 10-26-2023 Episodic Residual codes; unclassified (1 source) Gestation period, 32 weeks; Translations: [32 weeks gestation of ] 11-24-2023 Episodic Residual codes; unclassified (1 source) 8 weeks gestation of ; Translations: [8 weeks gestation of ] Onset: 11-30-2023 Episodic Residual codes; unclassified (1 source) Gestation period, 34 weeks; Translations: [34 weeks gestation of ] 12-08-2023 Episodic Residual codes; unclassified (1 source) Gestation period, 35 weeks; Translations: [35 weeks gestation of ] 12-15-2023 Episodic Residual codes; unclassified (1 source) 22 weeks gestation of ; Translations: [22 weeks gestation of ] Onset: 10-13-2023 Episodic Screening and history of mental health and substance abuse codes (1 source) Encounter for screening for depression; Translations: [Depression screening] Onset: 01-19-2023 Episodic Unclassified (20 sources) [facility] Education - COMMON Onset: 06-06-2023 06-06-2023 Unclassified (20 sources) Education - [place] Onset: 06-06-2023 06-06-2023 Unclassified (1 source) Vaginal yeast infection; Translations: [Vaginal yeast infection] Onset: 01-01-2023 Urinary tract infections (1 source) Urinary tract infectious disease; Translations: [Urinary tract infection, site not specified] Onset: 11-02-2022 Episodic Viral infection (1 source) Viral disease; Translations: [Viral infection, unspecified] Episodic Past or Other Problems Problem Classification Problem Date Documented Date Episodic/Chronic Allergic reactions (2 sources) Inflammatory dermatosis; Translations: [Dermatitis, unspecified] Onset: 03-29-2023 03-29-2023 Episodic Chronic obstructive pulmonary disease and bronchiectasis (1 source) Bronchitis, not specified as acute or chronic; Translations: [Sinobronchitis] Onset: 04-03-2023 Episodic Deficiency and other anemia (1 source) Other iron deficiency anemias; Translations: [Other iron deficiency anemia] Onset: 03-09-2023 Episodic Hemorrhage during ; abruptio placenta; placenta previa (20 sources) Placenta previa; Translations: [Complete placenta previa NOS or without hemorrhage, unspecified trimester] Onset: 08-16-2023 Resolved: 11-24-2023 08-16-2023 Episodic Other complications of (8 sources) Hyperemesis gravidarum; Translations: [Vomiting of , unspecified] Onset: 11-13-2020 12-15-2020 Episodic Other complications of (20 sources) Heartburn; Translations: [Other specified related conditions, first trimester] Onset: 01-07-2023 Resolved: 02-08-2023 01-07-2023 Episodic Other complications of (18 sources) Nausea and vomiting; Translations: [Vomiting of , unspecified] Onset: 11-13-2020 Resolved: 02-11-2023 01-07-2023 Episodic Other complications of (20 sources) Asthma; Translations: [Diseases of the respiratory system complicating , unspecified trimester] Onset: 01-07-2023 Resolved: 02-11-2023 01-07-2023 Episodic Other complications of (20 sources) Delivery finding; Translations: [Outcome of delivery, unspecified] Onset: 01-07-2023 Resolved: 02-11-2023 01-07-2023 Episodic Other complications of (20 sources) Complication occurring during ; Translations: [ complication before ] Onset: 06-06-2023 06-06-2023 Episodic Other complications of (20 sources) Vomiting of , unspecified; Translations: [Unspecified vomiting of , unspecified as to episode of care or not applicable] Onset: 11-13-2020 Resolved: 02-11-2023 02-11-2023 Episodic Other complications of (1 source) Outcome of delivery, unspecified; Translations: [Forceps or vacuum extractor delivery] Onset: 06-06-2023 Episodic Other complications of (1 source) Missed ; Translations: [Missed ] Onset: 02-11-2023 Episodic Other connective tissue disease (20 sources) H/O: musculoskeletal disease; Translations: [Personal history of other diseases of the musculoskeletal system and connective tissue] Onset: 11-13-2020 11-13-2020 Episodic Other female genital disorders (20 sources) Vaginal bleeding; Translations: [Abnormal uterine and vaginal bleeding, unspecified] Onset: 02-23-2023 Resolved: 07-29-2023 02-23-2023 Chronic Other and delivery including normal (20 sources) Normal ; Translations: [Encounter for supervision of other normal , first trimester] Onset: 11-14-2020 Resolved: 02-11-2023 11-14-2020 Episodic Comment on above: System added from do cumentation. Status documented as Yes on Admission Other screening for suspected conditions (not mental disorders or infectious disease) (2 sources) Cancer cervix screening status; Translations: [Encounter for screening for malignant neoplasm of cervix] Onset: 02-08-2023 06-06-2023 Episodic Other upper respiratory infections (10 sources) Laryngitis; Translations: [Acute laryngitis] Onset: 01-01-2023 Episodic Otitis media and related conditions (2 sources) Acute non-suppurative otitis media - serous; Translations: [Acute serous otitis media, bilateral] Onset: 06-13-2023 06-13-2023 Episodic Residual codes; unclassified (20 sources) Gestation period, 10 weeks; Translations: [10 weeks gestation of ] Onset: 01-07-2023 Resolved: 02-08-2023 01-07-2023 Episodic Residual codes; unclassified (1 source) 9 weeks gestation of ; Translations: [9 weeks gestation of ] Onset: 06-13-2023 Episodic Residual codes; unclassified (1 source) 15 weeks gestation of ; Translations: [15 weeks gestation of ] Onset: 02-11-2023 Episodic Residual codes; unclassified (1 source) 14 weeks gestation of ; Translations: [14 weeks gestation of ] Onset: 02-08-2023 Episodic Residual codes; unclassified (1 source) 10 weeks gestation of ; Translations: [10 weeks gestation of ] Onset: 01-07-2023 Episodic Skin and subcutaneous tissue infections (2 sources) Furuncle; Translations: [Furuncle, unspecified] Onset: 2023 Episodic Results Test Name Value Interpretation Reference Range Facility HISTORY PHYSICALon HISTORY PHYSICAL HNO ID: [id number] Author: LG MUNSON MD Service: ? Author Type: Physician Type: H&P Filed: 12/23/2023 09:16 Note Text: DATE OF SERVICE: December 23, 2023 PROBLEM: di di twin , A1GDM, obesity, anemia, gestational thrombocytopenia DIAGNOSIS: as above PAST SURGICAL HISTORY: PAST SURGICAL HISTORY Procedure Laterality Date DANDC SUCTION 02/18/2023 16 week loss, 13 week size embryo TONSILLECTOMY AND ADENOIDECTOMY HX PAST MEDICAL HISTORY: PAST MEDICAL HISTORY Diagnosis Date Antepartum anemia complicating in first trimester 11/21/2020 Asthma childhood -no attacks since age 9 Diet controlled gestational diabetes mellitus (GDM) in third trimester 03/16/2021 Fibroid 2021 Fibroid(s): Size 48 mm x 34 mm x 51 mm. Mean 44.3 mm. Vol 43.580 cm?. Anterior, Adxw-Rhhxx-Ezozwwm disease Miscarriage 02/2023 depression After late miscarriage-no meds SUBJECTIVE: pt doing well. Blood sugars well controlled with diet SOCIAL HISTORY: Social History Tobacco Use Smoking status: Never Passive exposure: Never Smokeless tobacco: Never Vaping Use Vaping status: Never Used Substance Use Topics Alcohol use: Not Currently Drug use: Never ALLERGIES No Known Allergies Current Outpatient Medications on File Prior to Visit Medication Sig blood sugar diagnostic test strip Use as directed to check glucose levels up to seven times daily. Lancets Use as directed to check glucose levels up to seven times daily. pyridoxine HCl, vitamin B6, (VITAMIN B-6 ORAL) Take by mouth. diphenhydramine HCl (UNISOM, DIPHENHYDRAMINE, ORAL) Take by mouth. aspirin 81 mg cap Take 1 tablet by mouth once daily. docusate sodium (COLACE) 100 mg capsule Take 1 capsule by mouth two times a day. polyethylene glycol 3350 (MIRALAX) 17 gram packet Take 1 Packet by mouth once daily. Dissolve dose in 4 - 8 ounces of liquid and take as directed. acetaminophen (TYLENOL ORAL) Take by mouth as needed. cranberry fruit extract (CRANBERRY EXTRACT ORAL) Take by mouth. ferrous sulfate (IRON) 325 mg (65 mg iron) tablet Take 1 tablet by mouth two times a day. (Patient taking differently: Take 325 mg by mouth two times a day. Taking every 3rd day currently) multivitamin (CLASSIC ) 28 mg iron- 800 mcg tab(s) Take 1 tablet by mouth once daily. No current facility-administered medications on file prior to visit. OBJECTIVE: VITALS: BP 118/70 Wt 89.2 kg (196 lb 9.6 oz) LMP 04/01/2023 (Exact Date) BMI 37.15 kg/m? HEENT: Normocephalic, atraumatic, Mucus membranes moist without lesions. NECK: Soft and Supple. No adenopathy , thyromegaly or bruits. SKIN: No lesions. CHEST: No increased respiratory effort. HEART: Regular rate. BACK: Nontender. ABDOMEN: Soft, non-tender, non-distended, no masses, no hepatosplenomegaly. LOWER EXTREMITIES: There was no pitting edema, no palpable cords and no skin changes. ASSESSMENT: pre op PLAN: 1) Discussed r/b/a primary section. Baby A vertex today and baby B transverse. Patient does not want to try for a vaginal delivery. Patient does not want sterilization. The rationale for the proposed surgery was discussed in addition to risks, benefits, and alternatives. General pre- and post-operative care was reviewed. Questions were answered. After discussion, the patient indicated a desire to proceed with the planned surgery. Lg Munson DO Medical Decision Making: Problems: Moderate: 2+ stable chronic illnesses Risk: High: Decision on elective major surgery w/ risk factors Medical Decision Making Level: 4 - Moderate Normal [facility] URINE OB DIP B/Oon 4 Glucose Ql (U) Negative Neg mg/dL [facility] Interpretation and review of laboratory results Normal [facility] Protein.monoclonal (U) [Mass/Vol] Negative Neg mg/dL [facility] ROUTINE, GROUP B ST REP PCRon 12-15-2023 ROUTINE, GROUP B STREP PCR GROUP B STREP PCR: Negative for Group B Streptococcus by PCR. Normal [facility] Comment on above: Performed By: #### G BPCR ####[facility] LABCLIA [id number] [place] [address] [place] URINE OB DIP B/Oon Glucose Ql (U) Negative Neg mg/dL [facility] Protein.monoclonal (U) [Mass/Vol] Negative Neg mg/dL [facility] CNOVSPon 12-08-2023 CNOVSP Visit (SP) Office ( E[facility]) CHELI OSMAN ([id number]) 1995 F [facility] Date Time Provider Department 12/08/23 12:00 PM TREATMENT RM [facility] During your visit today, we recorded the following information about you: Temperature Pulse Respiration Blood pressure 97.2 degrees 101/minute 18/minute 110/74 Referring Provider: HARRISON CAM [[id number]] Allergies As of Date: 12/08/2023 (No Known Allergies) Date Reviewed: 12/08/2023 Reviewed by: Leila Green, RN - Fully Assessed Reason for Visit: Non-Chemotherapy Treatment [795] Primary Visit Diagnosis:Maternal iron deficiency anemia complicating , third trimester [O99.013, D50.9] Order(s):BCN NURSING COMMUNICATION [[id number]] Order #: [id number]: 1 STANDING [] iron sucrose 200 mg injection (VENOFER)Disp: Rfl: NaCl 0.9% iv infusionDisp: Rfl: diphenhydrAMINE 50 mg injection (BENADRYL)Disp: Rfl: hydrocortisone sodium succinate (PF) 100 mg injection (Solu-CORTEF)Disp: Rfl: EPINEPHrine HCl (PF) 1 mg/mL (1 mL) 0.3 mg injectionDisp: Rfl: TOM NURSING COMMUNICATION [[id number]] Order #: [id number]: 1 STANDING Prescriptions as of 12/08/2023 - blood sugar diagnostic test strip Use as directed to check glucose levels up to seven times daily. - Lancets Use as directed to check glucose levels up to seven times daily. - pyridoxine HCl, vitamin B6, (VITAMIN B-6 ORAL) Take by mouth. - diphenhydramine HCl (UNISOM, DIPHENHYDRAMINE, ORAL) Take by mouth. - aspirin 81 mg cap Take 1 tablet by mouth once daily. - docusate sodium (COLACE) 100 mg capsule Take 1 capsule by mouth two times a day. - polyethylene glycol 3350 (MIRALAX) 17 gram packet Take 1 Packet by mouth once daily. Dissolve dose in 4 - 8 ounces of liquid and take as directed. - acetaminophen (TYLENOL ORAL) Take by mouth as needed. - cranberry fruit extract (CRANBERRY EXTRACT ORAL) Take by mouth. - ferrous sulfate (IRON) 325 mg (65 mg iron) tablet Take 1 tablet by mouth two times a day. - multivitamin (CLASSIC ) 28 mg iron- 800 mcg tab(s) Take 1 tablet by mouth once daily. 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] 11/13/2020 Encounter for supervision of other normal pregn*11/14/2020 07/10/2021 Antepartum anemia in third trimester [O99.013] 11/21/2020 07/10/2021 Abnormal glucose complicating [O99.81*03/04/2021 03/16/2021 Diet controlled gestational diabetes mellitus (*03/16/2021 07/10/2021 History of gestational diabetes mellitus [Z86.3*07/10/2021 11/24/2023 with uncertain dates in first trimest*01/07/2023 02/08/2023 Supervision of normal [Z34.90] 01/07/2023 02/11/2023 10 weeks gestation of [Z3A.10] 01/07/2023 02/08/2023 Heartburn during in first trimester [*01/07/2023 02/08/2023 Asthma during [O99.519, J45.909] 01/07/2023 02/11/2023 Forceps or vacuum extractor delivery [Z37.9] 01/07/2023 Obesity affecting in first trimester *01/07/2023 02/11/2023 Vaginal bleeding [N93.9] 02/23/2023 07/29/2023 Obesity affecting in first trimester *06/06/2023 Encounter for supervision of high risk pregnanc*06/06/2023 07/29/2023 [facility] Consult Note 11/30/23 [O99.891] 06/06/2023 Dichorionic diamniotic twin in first *07/05/2023 Placenta previa antepartum [O44.00] 08/16/2023 11/24/2023 Low-lying placenta [O44.40] 08/26/2023 Low lying placenta without hemorrhage, antepart*10/13/2023 11/10/2023 Benign gestational thrombocytopenia in second t*10/14/2023 Anemia during in second trimester [O9*10/14/2023 Abnormal glucose complicating [O99.81*10/14/2023 11/10/2023 Maternal iron deficiency anemia complicating pr*10/26/2023 Diet controlled gestational diabetes mellitus (*10/28/2023 Encounter Status:Closed by LEILA GREEN on 12/08/23 Normal [facility] Examination level ultrasound on 12-08-2023 [facility] Radiology Study observation (narrative) [facility] Freddie 12-07-2023 BORAN Telephone (INTMMN) JACQUICHELI MERCEDES ([id number]) 1995 F [facility] Date Time Provider Department 12/07/23 LEONORA CHAPMAN During your visit today, we recorded the following information about you: Leonora Chapman, RN 12/07/2023 1:43 PM Signed Treatment plan signed and PA approved for Venofer 200 mg IV x 2 doses. Ready to schedule. Danielle Thomas 12/07/2023 3:39 PM Signed Spoke with patient and scheduled first dose for tomorrow. Patient will stop by [facility] office to schedule second dose to coincide with her next OBGYN appt. Monica Issa 12/08/2023 3:09 PM Signed Patient stopped and scheduled next appointment. Monica Verduzco Allergies As of Date: 12/07/2023 (No Known Allergies) Date Reviewed: 11/24/2023 Reviewed by: Harrison Cam MD - Fully Assessed Reason for Visit: Blood Management [Other] Prescriptions as of 12/08/2023 - blood sugar diagnostic test strip Use as directed to check glucose levels up to seven times daily. - Lancets Use as directed to check glucose levels up to seven times daily. - pyridoxine HCl, vitamin B6, (VITAMIN B-6 ORAL) Take by mouth. - diphenhydramine HCl (UNISOM, DIPHENHYDRAMINE, ORAL) Take by mouth. - aspirin 81 mg cap Take 1 tablet by mouth once daily. - docusate sodium (COLACE) 100 mg capsule Take 1 capsule by mouth two times a day. - polyethylene glycol 3350 (MIRALAX) 17 gram packet Take 1 Packet by mouth once daily. Dissolve dose in 4 - 8 ounces of liquid and take as directed. - acetaminophen (TYLENOL ORAL) Take by mouth as needed. - cranberry fruit extract (CRANBERRY EXTRACT ORAL) Take by mouth. - ferrous sulfate (IRON) 325 mg (65 mg iron) tablet Take 1 tablet by mouth two times a day. - multivitamin (CLASSIC ) 28 mg iron- 800 mcg tab(s) Take 1 tablet by mouth once daily. 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] 11/13/2020 Encounter for supervision of other normal pregn*11/14/2020 07/10/2021 Antepartum anemia in third trimester [O99.013] 11/21/2020 07/10/2021 Abnormal glucose complicating [O99.81*03/04/2021 03/16/2021 Diet controlled gestational diabetes mellitus (*03/16/2021 07/10/2021 History of gestational diabetes mellitus [Z86.3*07/10/2021 11/24/2023 with uncertain dates in first trimest*01/07/2023 02/08/2023 Supervision of normal [Z34.90] 01/07/2023 02/11/2023 10 weeks gestation of [Z3A.10] 01/07/2023 02/08/2023 Heartburn during in first trimester [*01/07/2023 02/08/2023 Asthma during [O99.519, J45.909] 01/07/2023 02/11/2023 Forceps or vacuum extractor delivery [Z37.9] 01/07/2023 Obesity affecting in first trimester *01/07/2023 02/11/2023 Vaginal bleeding [N93.9] 02/23/2023 07/29/2023 Obesity affecting in first trimester *06/06/2023 Encounter for supervision of high risk pregnanc*06/06/2023 07/29/2023 [facility] Consult Note 11/30/23 [O99.891] 06/06/2023 Dichorionic diamniotic twin in first *07/05/2023 Placenta previa antepartum [O44.00] 08/16/2023 11/24/2023 Low-lying placenta [O44.40] 08/26/2023 Low lying placenta without hemorrhage, antepart*10/13/2023 11/10/2023 Benign gestational thrombocytopenia in second t*10/14/2023 Anemia during in second trimester [O9*10/14/2023 Abnormal glucose complicating [O99.81*10/14/2023 11/10/2023 Maternal iron deficiency anemia complicating pr*10/26/2023 Diet controlled gestational diabetes mellitus (*10/28/2023 Encounter Status:Closed by LEONORA BROWN [facility] 12[facility]07/23 [facility]OBGYWM[facility] CHELI OSMAN ([id number]) 1995 [facility] Date Time Provider Department 12/01/23 HARRISON CAM During your visit today, we recorded the following information about you: Laisha Marsh RN 12/01/2023 1:22 PM Signed ----- Message from Harrison Cam MD sent at 12/01/2023 12:11 PM EDT ----- Recommend 2 additional doses of IV iron. Discussed patient with . MD Angelia Pack Trisha, RN 12/01/2023 4:11 PM Signed Patient notified. Orders were already filed by TAISHA for 2 additional doses. Prior auth pending. Laisha Marsh RN Allergies As of Date: 12/01/2023 (No Known Allergies) Date Reviewed: 11/24/2023 Reviewed by: Harrison Cam MD - Fully Assessed Reason for Visit: Results [95] Prescriptions as of 12/01/2023 - blood sugar diagnostic test strip Use as directed to check glucose levels up to seven times daily. - Lancets Use as directed to check glucose levels up to seven times daily. - pyridoxine HCl, vitamin B6, (VITAMIN B-6 ORAL) Take by mouth. - diphenhydramine HCl (UNISOM, DIPHENHYDRAMINE, ORAL) Take by mouth. - aspirin 81 mg cap Take 1 tablet by mouth once daily. - docusate sodium (COLACE) 100 mg capsule Take 1 capsule by mouth two times a day. - polyethylene glycol 3350 (MIRALAX) 17 gram packet Take 1 Packet by mouth once daily. Dissolve dose in 4 - 8 ounces of liquid and take as directed. - acetaminophen (TYLENOL ORAL) Take by mouth as needed. - cranberry fruit extract (CRANBERRY EXTRACT ORAL) Take by mouth. - ferrous sulfate (IRON) 325 mg (65 mg iron) tablet Take 1 tablet by mouth two times a day. - multivitamin (CLASSIC ) 28 mg iron- 800 mcg tab(s) Take 1 tablet by mouth once daily. Problem List As Of Date 12/01/2023 Noted Resolved Nausea and vomiting during [O21.9] 11/13/2020 02/11/2023 History of Dkgp-Mognj-Dmdhmne 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] 11/13/2020 Encounter for supervision of other normal pregn*11/14/2020 07/10/2021 Antepartum anemia in third trimester [O99.013] 11/21/2020 07/10/2021 Abnormal glucose complicating [O99.81*03/04/2021 03/16/2021 Diet controlled gestational diabetes mellitus (*03/16/2021 07/10/2021 History of gestational diabetes mellitus [Z86.3*07/10/2021 11/24/2023 with uncertain dates in first trimest*01/07/2023 02/08/2023 Supervision of normal [Z34.90] 01/07/2023 02/11/2023 10 weeks gestation of [Z3A.10] 01/07/2023 02/08/2023 Heartburn during in first trimester [*01/07/2023 02/08/2023 Asthma during [O99.519, J45.909] 01/07/2023 02/11/2023 Forceps or vacuum extractor delivery [Z37.9] 01/07/2023 Obesity affecting in first trimester *01/07/2023 02/11/2023 Vaginal bleeding [N93.9] 02/23/2023 07/29/2023 Obesity affecting in first trimester *06/06/2023 Encounter for supervision of high risk pregnanc*06/06/2023 07/29/2023 [facility] Consult Note 11/30/23 [O99.891] 06/06/2023 Dichorionic diamniotic twin in first *07/05/2023 Placenta previa antepartum [O44.00] 08/16/2023 11/24/2023 Low-lying placenta [O44.40] 08/26/2023 Low lying placenta without hemorrhage, antepart*10/13/2023 11/10/2023 Benign gestational thrombocytopenia in second t*10/14/2023 Anemia during in second trimester [O9*10/14/2023 Abnormal glucose complicating [O99.81*10/14/2023 11/10/2023 Maternal iron deficiency anemia complicating pr*10/26/2023 Diet controlled gestational diabetes mellitus (*10/28/2023 Encounter Status:Closed by LAISHA MARSH on 12/01/23 [facility] NURSING PROGon 11-30-2023 NURSING PROG HNO ID: [id number] Author: MYA MELO, JARETH Service: Nursing Author Type: Registered Nurse Type: Nursing Progress Note Filed: 11/30/2023 12:38 Note Text: Summary: [facility] [employer] 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 She plans to breastfeed baby girls, Milagros and Lisa. Primary Trigger Themes: Worry or anxiety about baby Primary Triggers: Labor AND Strategies: At the time of this consult, Bibiana felt that she was leaning toward having a scheduled C/S. She is concerned about the possibility of having to recover from both a vaginal and a C/S. She also expressed concern about having an emergency C/S. Her consult was spent discussing what to expect on the day of a scheduled C/S as far as timing, order of procedures (Admission questions, IV start, anesthesia consent etc.). It was reassuring to Bibiana to have an idea of what to expect. A discussion was had about what to expect in the OR and descriptions and photos of the OR were provided. Bibiana would like to be able to have physical contact with the babies in the OR, even if for only a few moments. She would like the girls to be able to have skin to skin time with Samy in the OR, but she would like to have them in recovery. She would like the standard delay in cord clamping if possible. She would like it if Samy could trim the cords. Bibiana breastfed her first daughter, 2.5 year old Candi. She plans to breastfeed the twins but is nervous about navigating with two babies. She would like support from consultants. Other Patient Preferences: If the babies need to go to NICU, Bibiana would like Samy to be with them as soon as possible. Additional Comments/Significant Information: Candi is Bibiana's daughter with her first . The twins are Samy's first children. Be aware that he may need more help with learning to care for babies. Bibiana is dealing with complicated family dynamics at this time. Her ex-, who she describes as emotionally unsafe for her, currently lives with her mother. For this reason, Bibiana would prefer that her mother not visit her in the hospital. Normal [facility] EPO SerPl-aCncon 11-28-2023 Erythropoietin (EPO) Qn 29.5 mIU/mL High 2.6-18.5 [facility] Comment on above: Order Comment: Herman granados Type: BLOOD SPECIMENOrdering Facility: [facility] Address: [address] [place] [address] Performed By: #### 1 5061-5 ####[facility] LABCLIA [id number] [place] [address] [place] Ferritin SerPl-mCncon 2023 Ferritin [Mass/Vol] 78.5 ng/mL Normal 8.0-307.0 [facility] Comment on above: Order Comment: Herman granados Type: BLOOD SPECIMENOrdering Facility: [facility] Address: [address] [place] [address] Performed By: #### 5 0190-8, 2276-4, 2132-9 ####[facility] LABORATORYCLIA [id number] [place] [address] [place] Folate SerPl-mCncon 11-28-19 Folate [Mass/Vol] 19.3 ng/mL Normal >3.0 [facility] Comment on above: Order Comment: Herman granados Type: BLOOD SPECIMENOrdering Facility: [facility] Address: [address] [place] [address] Performed By: #### 2 284-8 ####[facility] LABORATORYCLIA [id number] [place] [address] [place] Iron and Iron binding capaci ty panelon 11-28-2023 Iron [Mass/Vol] 89 ug/dL Normal 50-170 [facility] Comment on above: Order Comment: Nickii men Type: BLOOD SPECIMENOrdering Facility: [facility] Address: [address] [place] [address] Result Comment: Gissel ents treated with metal-binding drugs (e.g.deferoxamine) may have depressed iron values, as chelated iron may not properly react in the Siemens iron assay. Performed By: #### 5 0190-8, 2275-05, 2131-10 ####[facility] LABORATORYCLIA [id number] [place] [id number] [place] Iron binding capacity [Mass/Vol] 455 ug/dL Normal 221-481 [facility] Comment on above: Order Comment: Speci men Type: BLOOD SPECIMENOrdering Facility: [facility] Address: [address] [place] [address] Performed By: #### 5 0190-8, 2275-05, 2131-10 ####[facility] LABORATORYCLIA [id number] [place] [id number] [place] Iron/TIBC [Molar ratio] 19.6 % Low 22.0-44.0 [facility] Comment on above: Order Comment: Speci men Type: BLOOD SPECIMENOrdering Facility: [facility] Address: [address] [place] [address] Performed By: #### 5 0190-8, 2275-05, 2131-10 ####[facility] LABORATORYCLIA [id number] [place] [id number] [place] Methylmalonate SerPl-sCncon 11-28-2023 Methylmalonate [Moles/Vol] 0.30 umol/L Normal <=0.40 [facility] Comment on above: Order Comment: Speci [facility] Type: BLOOD SPECIMENOrdering Facility: [facility] Address: [address] [place] [address] Result Comment: This test was developed, and its performance characteristics determined by the [facility] Department of Pathology and Laboratory Medicine. It has not been cleared or approved by the FDA. The [facility] Department of Pathology and Laboratory Medicine is regulated under CLIA as qualified to perform high-complexity testing. This test is used for clinical purposes. It should not be regarded as investigational or for research. Performed By: #### 1 3964-2 ####[facility] LABCLIA [id number] [facility] [place] [address] [place] Retics #on 10-21-2024 Reticulocytes (Bld) [#/Vol] 0.48509 10*3/uL Normal 0.018-0.100 [facility] Comment on above: Order Comment: Herman granados Type: BLOOD SPECIMENOrdering Facility: [facility] Address: [address] [place] [address] Performed By: #### 1 4196-0 ####[facility] LABORATORYCLIA [id number] [place] [id number] [facility] Reticulocytes (Bld) [#/Vol]o n 11-28-2023 Reticulocytes/100 RBC (Bld) 2.6 % High 0.4-2.0 [facility] Comment on above: Order Comment: Herman grnaados Type: BLOOD SPECIMENOrdering Facility: [facility] Address: [address] [place] [address] Performed By: #### 1 4196-0 ####[facility] LABORATORYCLIA [id number] [address] VITAMIN B6/PYRIDOXINon 11-27 VITAMIN B6 16.0 nmol/L Low 20.0-125.0 [facility] Comment on above: Order Comment: Herman granados Type: BLOOD SPECIMENOrdering Facility: [facility] Address: [address] [place] [address] Result Comment: INTE RPRETIVE INFORMATION: Vitamin B6 (Pyridoxal 5-Phosphate) Pyridoxal 5'-phosphate measured in a specimen collected following an 8-hour or overnight fast accurately indicates vitamin B6 nutritional status. Non-fasting specimen concentration reflects recent vitamin intake. This test was developed and its performance characteristics determined by [facility]. It has not been cleared or approved by the US Food and Drug Administration. This test was performed in a CLIA certified laboratory and is intended for clinical purposes. Performed By: [facility] [address] [place] [address] Thermite Bomb Loader: Beka Blankenship MD, PhD CLIA Number: [id number] Performed By: #### V ITB6 ####[facility] LABORATORIESIA [id number] [place] [id number] Vit B12 SerPl-mCncon 10-21-2 024 Cobalamin (Vitamin B12) [Mass/Vol] 343 pg/mL Normal 193-986 [facility] Comment on above: Order Comment: Speci men Type: BLOOD SPECIMENOrdering Facility: [facility] Address: [address] [place] [address] Performed By: #### 5 0190-8, 2276-4, 2132-9 ####[facility] LABORATORYCLIA [id number] [address] OF [facility] CBC panel Auto (Bld)on 11-23 Erythrocyte distribution width (RBC) [Ratio] 15.1 % High 11.5 - 15.0 % [facility] Hematocrit (Bld) [Volume fraction] 31.7 % Low 36.0 - 46.0 % [facility] Hemoglobin (Bld) [Mass/Vol] 10.1 g/dL Low 11.5 - 15.5 g/dL [facility] Interpretation and review of laboratory results Abnormal [facility] MCH (RBC) [Entitic mass] 28.5 pg 26.0 - 34.0 pg [facility] MCHC (RBC) [Mass/Vol] 31.9 g/dL 30.5 - 36.0 g/dL [facility] MCV (RBC) [Entitic vol] 89.3 fL 80.0 - 100.0 fL [facility] Nucleated RBC (Bld) [#/Vol] NINF [facility] Platelet mean volume (Bld) [Entitic vol] 10.5 fL 9.0 - 12.7 fL [facility] Platelets (Bld) [#/Vol] 129 10*3/uL Low [facility] RBC (Bld) [#/Vol] 3.55 10*6/uL Low 3.90 - 5.2 0 m/uL [facility] WBC (Bld) [#/Vol] 7.10 10*3/uL [facility] Erythrocyte distribution width (RBC) [Ratio] 15.1 % High 11.5-15.0 [facility] Comment on above: Order Comment: Speci men Type: BLOOD SPECIMENOrdering Facility: [facility] Address: [address] [place] [address] Performed By: #### 5 8410-2 ####[facility] SUNIWNCLIA [id number] [place] [address] [place] Hematocrit (Bld) [Volume fraction] 31.7 % Low 36.0-46.0 [facility] Comment on above: Order Comment: Speci men Type: BLOOD SPECIMENOrdering Facility: [facility] Address: [address] [place] [address] Performed By: #### 5 8410-2 ####[facility] HOSPITALAMELIELIA [id number] [place] [address] [place] Hemoglobin (Bld) [Mass/Vol] 10.1 g/dL Low 11.5-15.5 [facility] Comment on above: Order Comment: Speci men Type: BLOOD SPECIMENOrdering Facility: [facility] Address: [address] [place] [address] Performed By: #### 5 8410-2 ####[facility] HOSPITALAMELIELIAmanda [id number] [place] [address] [place] MCH (RBC) [Entitic mass] 28.5 pg Normal 26.0-34.0 [facility] Comment on above: Order Comment: Speci men Type: BLOOD SPECIMENOrdering Facility: [facility] Address: [address] [place] [address] Performed By: #### 5 8410-2 ####[facility] HOSPITALCHINAA [id number] [place] [address] [place] MCHC (RBC) [Mass/Vol] 31.9 g/dL Normal 30.5-36.0 [facility] Comment on above: Order Comment: Speci men Type: BLOOD SPECIMENOrdering Facility: [facility] Address: [address] [place] [address] Performed By: #### 5 8410-2 ####[facility] HOSPITALNCLIA [id number] [place] [address] [place] MCV (RBC) [Entitic vol] 89.3 fL Normal 80.0-100.0 [facility] Comment on above: Order Comment: Speci men Type: BLOOD SPECIMENOrdering Facility: [facility] Address: [address] [place] [address] Performed By: #### 5 8410-2 ####[facility]ITALNCCENTR[facility] [id number] [place] [address] [place] Nucleated RBC (Bld) [#/Vol] 10*3/uL Normal <0.01 [facility] Comment on above: Order Comment: Speci men Type: BLOOD SPECIMENOrdering Facility: [facility] Address: [address] [place] [address] Performed By: #### 5 8410-2 ####[facility]ITALNCCENTR[facility] [id number] [place] [address] [place] Platelet mean volume (Bld) [Entitic vol] 10.5 fL Normal 9.0-12.7 [facility] Comment on above: Order Comment: Speci men Type: BLOOD SPECIMENOrdering Facility: [facility] Address: [address] [place] [address] Performed By: #### 5 8410-2 ####[facility]PITALLIA [id number] [place] [address] [place] Platelets (Bld) [#/Vol] 129 10*3/uL Low 150-400 [facility] Comment on above: Order Comment: Speci men Type: BLOOD SPECIMENOrdering Facility: [facility] Address: [address] [place] [address] Performed By: #### 5 8410-2 ####[facility] HOSPITALNCLIA [id number] [place] [address] [place] RBC (Bld) [#/Vol] 3.55 10*6/uL Low 3.90-5.20 [facility] Comment on above: Order Comment: Speci men Type: BLOOD SPECIMENOrdering Facility: [facility] Address: [address] [place] [address] Performed By: #### 5 8410-2 ####[facility] MISTY SANTIAGONCLIA [id number] [place] [address] [place] WBC (Bld) [#/Vol] 7.10 10*3/uL Normal 3.70-11.00 [facility] Comment on above: Order Comment: Speci men Type: BLOOD SPECIMENOrdering Facility: [facility] Address: [address] [place] [address] Performed By: #### 5 8410-2 ####[facility] MISTY SUNIDELTANCLIA [id number] [place] [address] [place] URINE OB DIP B/Oon Glucose Ql (U) Negative Neg mg/dL [facility] Interpretation and review of laboratory results Normal [facility] Protein.monoclonal (U) [Mass/Vol] Negative Neg mg/dL [facility] CNPNon 11-23-2023 CNPN Telephone (OBGYWM) CHELI OSMAN ([id number]) 1995 [facility] Date Time Provider Department 11/23/23 LINH ZIMMERMAN OBDUY During your visit today, we recorded the following information about you: Neil Gaytan RN 11/23/2023 11:48 AM Signed 32w5d Twins- Dichorionic-diamniotic Pt calls c/o cramping between lower abdomen into right hip that started 2 days ago. States feels like period cramping. Intermittent. Goes away with rest. Denies abdominal pain, vaginal bleeding/leaking of fluid, and contractions. Active movement. States hasn't taken tylenol in 2 days. Staying hydrated. States also has a cough/congestion. States BS are controlled. Advised Pt to take tylenol, rest, and stay hydrated. Advised to call office right away/go to ER if develops vaginal bleeding/severe abdominal pain/ decreased movement. Pt voiced understanding. OB appt tomorrow with KJ. Advised Pt message would be sent to o/c provider and we would call her if any additional advise needs to be given. JARETH Waters Deidre, MD 11/23/2023 11:51 AM Signed Agree with advice Allergies As of Date: 11/23/2023 (No Known Allergies) Date Reviewed: 11/10/2023 Reviewed by: Heather Hanson MA - Fully Assessed Prescriptions as of 11/23/2023 - blood sugar diagnostic test strip Use as directed to check glucose levels up to seven times daily. - Lancets Use as directed to check glucose levels up to seven times daily. - pyridoxine HCl, vitamin B6, (VITAMIN B-6 ORAL) Take by mouth. - diphenhydramine HCl (UNISOM, DIPHENHYDRAMINE, ORAL) Take by mouth. - aspirin 81 mg cap Take 1 tablet by mouth once daily. - docusate sodium (COLACE) 100 mg capsule Take 1 capsule by mouth two times a day. - polyethylene glycol 3350 (MIRALAX) 17 gram packet Take 1 Packet by mouth once daily. Dissolve dose in 4 - 8 ounces of liquid and take as directed. - acetaminophen (TYLENOL ORAL) Take by mouth as needed. - cranberry fruit extract (CRANBERRY EXTRACT ORAL) Take by mouth. - ferrous sulfate (IRON) 325 mg (65 mg iron) tablet Take 1 tablet by mouth two times a day. - multivitamin (CLASSIC ) 28 mg iron- 800 mcg tab(s) Take 1 tablet by mouth once daily. 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] 11/13/2020 Encounter for supervision of other normal pregn*11/14/2020 07/10/2021 Antepartum anemia in third trimester [O99.013] 11/21/2020 07/10/2021 Abnormal glucose complicating [O99.81*03/04/2021 03/16/2021 Diet controlled gestational diabetes mellitus (*03/16/2021 07/10/2021 History of gestational diabetes mellitus [Z86.3*07/10/2021 with uncertain dates in first trimest*01/07/2023 02/08/2023 Supervision of normal [Z34.90] 01/07/2023 02/11/2023 10 weeks gestation of [Z3A.10] 01/07/2023 02/08/2023 Heartburn during in first trimester [*01/07/2023 02/08/2023 Asthma during [O99.519, J45.909] 01/07/2023 02/11/2023 Forceps or vacuum extractor delivery [Z37.9] 01/07/2023 Obesity affecting in first trimester *01/07/2023 02/11/2023 Vaginal bleeding [N93.9] 02/23/2023 07/29/2023 Obesity affecting in first trimester *06/06/2023 Encounter for supervision of high risk pregnanc*06/06/2023 07/29/2023 M-Power Referred [O99.891] 06/06/2023 Dichorionic diamniotic twin in first *07/05/2023 Placenta previa antepartum [O44.00] 08/16/2023 Low-lying placenta [O44.40] 08/26/2023 Low lying placenta without hemorrhage, antepart*10/13/2023 11/10/2023 Benign gestational thrombocytopenia in second t*10/14/2023 Anemia during in second trimester [O9*10/14/2023 Abnormal glucose complicating [O99.81*10/14/2023 11/10/2023 Maternal iron deficiency anemia complicating pr*10/26/2023 Diet controlled gestational diabetes mellitus (*10/28/2023 Encounter Status:Closed by SANCHEZ MUSTAFA on 11/23/23 Normal [facility] CNNURSEon 11-15-2023 [facility] Nurse Visit (ENDIMT) CHELI OSMAN ([id number]) 1995 [facility] Date Time Provider Department 11/15/23 9:00 AM SARAH PALUMBO During your visit today, we recorded the following information about you: Sarah Palumbo, RN 11/15/2023 9:33 AM Signed DIABETES SELF-MANAGEMENT EDUCATION AND SUPPORT Location: [place] Type of visit: Virtual (with video) individual I have communicated my name and active licensure. The patient's identity and physical location were verified at the time of this visit. Either the patient or their legal car sales representative has been informed of the risks and benefits of -- and alternatives to -- treatment through a remote evaluation and consents to proceed with the evaluation remotely. Types of DSMES: Initial/Comprehensive (add to or update ADA spreadsheet) PATIENT'S MAIN CONCERN TODAY: GDM with twins Support person present for education today: none Cognitive ability: Alert and oriented Motivation to learn: Interested Learning barriers identified by educator: none Method of instruction: written, verbal, and demonstration INTERVENTIONS/TOPICS COVERED: -Diabetes Pathophysiology: gestational diabetes basics -Monitoring: BG targets and rationale for HGM -Healthy Eating: impact of carbs on BG, foods with carbs, reading food labels, and carb counting tools (books, Internet, smartphone apps) -Physical Activity: benefits of exercise and impact of exercise on BG -Acute Complications: hypoglycemia s/sx/tx and hyperglycemia s/sx/tx -Chronic Complications: LT complications and importance of BG control to reduce risks DIABETES ASSESSMENT: Referring Physician: Lg Munson Previous Diabetes Education? Yes, if so when? 2020 What are you hoping to gain from this visit? asked/not answered In your words, what is gestational diabetes? asked/not answered What concerns you about having gestational diabetes? asked/not answered Diabetes History: 68 for fasting this morning Type of Diabetes: Gestational ( diabetes in ) How far along is your ? Weeks: 31 Does anyone in your family have diabetes? asked/not answered How do you learn best?asked/not answered Demographics: Highest level of education: High school or GED Race/Ethnic Origin: White/ Does you culture or faith require any of the following: No cultural/congregation practices affecting DM Do you have problems with: No difficulty seeing/hearing/reading/writ ing/speaking Occupation: Stay at home currently during Support System: Do any of the following things get in the way of managing your diabetes? No self-identified issues Health History: Do you use tobacco? No Do you use alcohol? No In the past 12 months have you had any: Hospital Admissions: No ER Visits: Yes, Number of Times? 1 Primary Care Visits: Asked/not answered What are your general feelings about you overall health? Good Medical Issues/Complications: To whom are you reporting your blood sugar levels? OB PAST MEDICAL HISTORY Diagnosis Date Antepartum anemia complicating in first trimester 11/21/2020 Asthma childhood -no attacks since age 9 Diet controlled gestational diabetes mellitus (GDM) in third trimester 03/16/2021 Fibroid 2021 Fibroid(s): Size 48 mm x 34 mm x 51 mm. Mean 44.3 mm. Vol 43.580 cm?. Anterior, Wnmp-Qcvvo-Tosulpy disease Miscarriage 02/2023 depression After late miscarriage-no meds Most recent A1C Lab Results Component Value Date HBA1C 5.5 06/06/2023 HBA1C 5.2 01/07/2023 Physical Activity: Do you do a regular exercise? Yes; how many days per week 5+ How long each day? Less than 30 min Type of Exercise: walking Sleep: Do you get at least 7 hrs of sleep most nights? no Current Outpatient Medications Medication Sig blood sugar diagnostic test strip Use as directed to check glucose levels up to seven times daily. Lancets Use as directed to check glucose levels up to seven times daily. pyridoxine HCl, vitamin B6, (VITAMIN B-6 ORAL) Take by mouth. diphenhydramine HCl (UNISOM, DIPHENHYDRAMINE, ORAL) Take by mouth. aspirin 81 mg cap Take 1 tablet by mouth once daily. docusate sodium (COLACE) 100 mg capsule Take 1 capsule by mouth two times a day. polyethylene glycol 3350 (MIRALAX) 17 gram packet Take 1 Packet by mouth once daily. Dissolve dose in 4 - 8 ounces of liquid and take as directed. acetaminophen (TYLENOL ORAL) Take by mouth as needed. cranberry fruit extract (CRANBERRY EXTRACT ORAL) Take by mouth. ferrous sulfate (IRON) 325 mg (65 mg iron) tablet Take 1 tablet by mouth two times a day. (Patient taking differently: Take 325 mg by mouth two times a day. Taking every 3rd day currently) multivitamin (CLASSIC ) 28 mg iron- 800 mcg tab(s) Take 1 tablet by mouth once daily. No current facility-administered medications for t (more content not included)... Normal [facility] Examination level ultrasound on 11-13-2023 [facility] CNOVSPon 11-10-2023 CNOVSP Visit (SP) Office (H EMAWS) CHELI OSMAN ([id number]) 1995 F [facility] Date Time Provider Department 11/10/23 2:30 PM TREATMENT RM [facility] WSTRHEMAWS During your visit today, we recorded the following information about you: Temperature Pulse Blood pressure 97.4 degrees 103/minute 111/70 Referring Provider: LG MUNSON [[id number]] Allergies As of Date: 11/10/2023 (No Known Allergies) Date Reviewed: 11/10/2023 Reviewed by: Heather Hanson MA - Fully Assessed Reason for Visit: Non-Chemotherapy Treatment [795] Primary Visit Diagnosis:Maternal iron deficiency anemia complicating , third trimester [O99.013, D50.9] Order(s):BCN NURSING COMMUNICATION [[id number]] Order #: [id number]: 1 STANDING [] iron sucrose iv piggyback 200 mg in NaCl 0.9% 100 mL (VENOFER)Disp: Rfl: NaCl 0.9% iv infusionDisp: Rfl: diphenhydrAMINE 50 mg injection (BENADRYL)Disp: Rfl: hydrocortisone sodium succinate (PF) 100 mg injection (Solu-CORTEF)Disp: Rfl: EPINEPHrine HCl (PF) 1 mg/mL (1 mL) 0.3 mg injectionDisp: Rfl: TOM NURSING COMMUNICATION [[id number]] Order #: [id number]: 1 STANDING Prescriptions as of 11/10/2023 - blood sugar diagnostic test strip Use as directed to check glucose levels up to seven times daily. - Lancets Use as directed to check glucose levels up to seven times daily. - pyridoxine HCl, vitamin B6, (VITAMIN B-6 ORAL) Take by mouth. - diphenhydramine HCl (UNISOM, DIPHENHYDRAMINE, ORAL) Take by mouth. - aspirin 81 mg cap Take 1 tablet by mouth once daily. - docusate sodium (COLACE) 100 mg capsule Take 1 capsule by mouth two times a day. - polyethylene glycol 3350 (MIRALAX) 17 gram packet Take 1 Packet by mouth once daily. Dissolve dose in 4 - 8 ounces of liquid and take as directed. - acetaminophen (TYLENOL ORAL) Take by mouth as needed. - cranberry fruit extract (CRANBERRY EXTRACT ORAL) Take by mouth. - ferrous sulfate (IRON) 325 mg (65 mg iron) tablet Take 1 tablet by mouth two times a day. - multivitamin (CLASSIC ) 28 mg iron- 800 mcg tab(s) Take 1 tablet by mouth once daily. Facility-Administered Medications as of 11/10/2023 - NaCl 0.9% iv infusion - diphenhydrAMINE 50 mg injection (BENADRYL) - hydrocortisone sodium succinate (PF) 100 mg injection (Solu-CORTEF) - EPINEPHrine HCl (PF) 1 mg/mL (1 mL) 0.3 mg injection Problem List As Of Date 11/10/2023 Noted Resolved Nausea and vomiting during [O21.9] 11/13/2020 02/11/2023 History of Ontk-Cgosq-Gffblnv 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] 11/13/2020 Encounter for supervision of other normal pregn*11/14/2020 07/10/2021 Antepartum anemia in third trimester [O99.013] 11/21/2020 07/10/2021 Abnormal glucose complicating [O99.81*03/04/2021 03/16/2021 Diet controlled gestational diabetes mellitus (*03/16/2021 07/10/2021 History of gestational diabetes mellitus [Z86.3*07/10/2021 with uncertain dates in first trimest*01/07/2023 02/08/2023 Supervision of normal [Z34.90] 01/07/2023 02/11/2023 10 weeks gestation of [Z3A.10] 01/07/2023 02/08/2023 Heartburn during in first trimester [*01/07/2023 02/08/2023 Asthma during [O99.519, J45.909] 01/07/2023 02/11/2023 Forceps or vacuum extractor delivery [Z37.9] 01/07/2023 Obesity affecting in first trimester *01/07/2023 02/11/2023 Vaginal bleeding [N93.9] 02/23/2023 07/29/2023 Obesity affecting in first trimester *06/06/2023 Encounter for supervision of high risk pregnanc*06/06/2023 07/29/2023 [facility] Referred [O99.891] 06/06/2023 Dichorionic diamniotic twin in first *07/05/2023 Placenta previa antepartum [O44.00] 08/16/2023 Low-lying placenta [O44.40] 08/26/2023 Low lying placenta without hemorrhage, antepart*10/13/2023 11/10/2023 Benign gestational thrombocytopenia in second t*10/14/2023 Anemia during in second trimester [O9*10/14/2023 Abnormal glucose complicating [O99.81*10/14/2023 11/10/2023 Maternal iron deficiency anemia complicating pr*10/26/2023 Diet controlled gestational diabetes mellitus (*10/28/2023 Encounter Status:Closed by CANDY SERRANO on 11/10/23 Normal [facility] Freddie 11-10-2023 DARREN Telephone (OBHLLD) CHELI OSMAN ([id number]) 1995 [address] [facility] Date Time Provider Department 11/10/23 PAT ROMAN During your visit today, we recorded the following information about you: Allergies As of Date: 11/10/2023 (No Known Allergies) Date Reviewed: 11/10/2023 Reviewed by: Heather Hanson MA - Fully Assessed 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 - Lancets Use as directed to check glucose levels up to seven times daily. - pyridoxine HCl, vitamin B6, (VITAMIN B-6 ORAL) Take by mouth. - diphenhydramine HCl (UNISOM, DIPHENHYDRAMINE, ORAL) Take by mouth. - aspirin 81 mg cap Take 1 tablet by mouth once daily. - docusate sodium (COLACE) 100 mg capsule Take 1 capsule by mouth two times a day. - polyethylene glycol 3350 (MIRALAX) 17 gram packet Take 1 Packet by mouth once daily. Dissolve dose in 4 - 8 ounces of liquid and take as directed. - acetaminophen (TYLENOL ORAL) Take by mouth as needed. - cranberry fruit extract (CRANBERRY EXTRACT ORAL) Take by mouth. - ferrous sulfate (IRON) 325 mg (65 mg iron) tablet Take 1 tablet by mouth two times a day. - multivitamin (CLASSIC ) 28 mg iron- 800 mcg tab(s) Take 1 tablet by mouth once daily. Facility-Administered Medications as of 11/10/2023 - NaCl 0.9% iv infusion - diphenhydrAMINE 50 mg injection (BENADRYL) - hydrocortisone sodium succinate (PF) 100 mg injection (Solu-CORTEF) - EPINEPHrine HCl (PF) 1 mg/mL (1 mL) 0.3 mg injection Problem List As Of Date 11/10/2023 Noted Resolved Nausea and vomiting during [O21.9] 11/13/2020 02/11/2023 History of Hcjl-Kxxky-Kuudito 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] 11/13/2020 Encounter for supervision of other normal pregn*11/14/2020 07/10/2021 Antepartum anemia in third trimester [O99.013] 11/21/2020 07/10/2021 Abnormal glucose complicating [O99.81*03/04/2021 03/16/2021 Diet controlled gestational diabetes mellitus (*03/16/2021 07/10/2021 History of gestational diabetes mellitus [Z86.3*07/10/2021 with uncertain dates in first trimest*01/07/2023 02/08/2023 Supervision of normal [Z34.90] 01/07/2023 02/11/2023 10 weeks gestation of [Z3A.10] 01/07/2023 02/08/2023 Heartburn during in first trimester [*01/07/2023 02/08/2023 Asthma during [O99.519, J45.909] 01/07/2023 02/11/2023 Forceps or vacuum extractor delivery [Z37.9] 01/07/2023 Obesity affecting in first trimester *01/07/2023 02/11/2023 Vaginal bleeding [N93.9] 02/23/2023 07/29/2023 Obesity affecting in first trimester *06/06/2023 Encounter for supervision of high risk pregnanc*06/06/2023 07/29/2023 M-Power Referred [O99.891] 06/06/2023 Dichorionic diamniotic twin in first *07/05/2023 Placenta previa antepartum [O44.00] 08/16/2023 Low-lying placenta [O44.40] 08/26/2023 Low lying placenta without hemorrhage, antepart*10/13/2023 11/10/2023 Benign gestational thrombocytopenia in second t*10/14/2023 Anemia during in second trimester [O9*10/14/2023 Abnormal glucose complicating [O99.81*10/14/2023 11/10/2023 Maternal iron deficiency anemia complicating pr*10/26/2023 Diet controlled gestational diabetes mellitus (*10/28/2023 Encounter Status:Closed by MYA MELO on 11/10/23 Normal [facility] Examination level ultrasound on 11-10-2023 Radiology Study observation (narrative) [facility] URINE OB DIP B/Oon Glucose Ql (U) Negative Neg mg/dL [facility] Interpretation and review of laboratory results Normal [facility] Protein.monoclonal (U) [Mass/Vol] Negative Neg mg/dL [facility] CNOVSPon 11-08-2023 CNOVSP Visit (SP) Office (H EMAWS) CHELI OSMAN ([id number]) 1995 [address] [facility] Date Time Provider Department 11/08/23 3:30 PM TREATMENT RM [facility] W[facility]HE[facility] During your visit today, we recorded the following information about you: Temperature Pulse Respiration Blood pressure 97.9 degrees 93/minute 18/minute 106/70 Referring Provider: LG MUNSON [[id number]] Allergies As of Date: 11/08/2023 (No Known Allergies) Date Reviewed: 11/08/2023 Reviewed by: Sarina Flores, JARETH - Fully Assessed Reason for Visit: Non-Chemotherapy Treatment [795] Primary Visit Diagnosis:Maternal iron deficiency anemia complicating , third trimester [O99.013, D50.9] Order(s):N NURSING COMMUNICATION [[id number]] Order #: [id number]: 1 STANDING [] iron sucrose iv piggyback 200 mg in NaCl 0.9% 100 mL (VENOFER)Disp: Rfl: NaCl 0.9% iv infusionDisp: Rfl: diphenhydrAMINE 50 mg injection (BENADRYL)Disp: Rfl: hydrocortisone sodium succinate (PF) 100 mg injection (Solu-CORTEF)Disp: Rfl: EPINEPHrine HCl (PF) 1 mg/mL (1 mL) 0.3 mg injectionDisp: Rfl: BCN NURSING COMMUNICATION [[id number]] Order #: [id number]: 1 STANDING Prescriptions as of 11/08/2023 - blood sugar diagnostic test strip Use as directed to check glucose levels up to seven times daily. - Lancets Use as directed to check glucose levels up to seven times daily. - pyridoxine HCl, vitamin B6, (VITAMIN B-6 ORAL) Take by mouth. - diphenhydramine HCl (UNISOM, DIPHENHYDRAMINE, ORAL) Take by mouth. - aspirin 81 mg cap Take 1 tablet by mouth once daily. - docusate sodium (COLACE) 100 mg capsule Take 1 capsule by mouth two times a day. - polyethylene glycol 3350 (MIRALAX) 17 gram packet Take 1 Packet by mouth once daily. Dissolve dose in 4 - 8 ounces of liquid and take as directed. - acetaminophen (TYLENOL ORAL) Take by mouth as needed. - cranberry fruit extract (CRANBERRY EXTRACT ORAL) Take by mouth. - ferrous sulfate (IRON) 325 mg (65 mg iron) tablet Take 1 tablet by mouth two times a day. - multivitamin (CLASSIC ) 28 mg iron- 800 mcg tab(s) Take 1 tablet by mouth once daily. Facility-Administered Medications as of 11/08/2023 - NaCl 0.9% iv infusion - diphenhydrAMINE 50 mg injection (BENADRYL) - hydrocortisone sodium succinate (PF) 100 mg injection (Solu-CORTEF) - EPINEPHrine HCl (PF) 1 mg/mL (1 mL) 0.3 mg injection Problem List As Of Date 11/08/2023 Noted Resolved Nausea and vomiting during [O21.9] 11/13/2020 02/11/2023 History of Uyza-Ltrlt-Mpbjpho 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] 11/13/2020 Encounter for supervision of other normal pregn*11/14/2020 07/10/2021 Antepartum anemia in third trimester [O99.013] 11/21/2020 07/10/2021 Abnormal glucose complicating [O99.81*03/04/2021 03/16/2021 Diet controlled gestational diabetes mellitus (*03/16/2021 07/10/2021 History of gestational diabetes mellitus [Z86.3*07/10/2021 with uncertain dates in first trimest*01/07/2023 02/08/2023 Supervision of normal [Z34.90] 01/07/2023 02/11/2023 10 weeks gestation of [Z3A.10] 01/07/2023 02/08/2023 Heartburn during in first trimester [*01/07/2023 02/08/2023 Asthma during [O99.519, J45.909] 01/07/2023 02/11/2023 Forceps or vacuum extractor delivery [Z37.9] 01/07/2023 Obesity affecting in first trimester *01/07/2023 02/11/2023 Vaginal bleeding [N93.9] 02/23/2023 07/29/2023 Obesity affecting in first trimester *06/06/2023 Encounter for supervision of high risk pregnanc*06/06/2023 07/29/2023 M-Power Referred [O99.891] 06/06/2023 Dichorionic diamniotic twin in first *07/05/2023 Placenta previa antepartum [O44.00] 08/16/2023 Low-lying placenta [O44.40] 08/26/2023 Low lying placenta without hemorrhage, antepart*10/13/2023 Benign gestational thrombocytopenia in second t*10/14/2023 Anemia during in second trimester [O9*10/14/2023 Abnormal glucose complicating [O99.81*10/14/2023 Maternal iron deficiency anemia complicating pr*10/26/2023 Diet controlled gestational diabetes mellitus (*10/28/2023 Encounter Status:Closed by SARINA FLORES on 11/08/23 [facility] Freddie 11-04-2023 CNPN Telephone (PFS) CHELI OSMAN ([id number]) 1995 [facility] Date Time Provider Department 11/04/23 FINANCIAL NAVIGATOR RICK PFS During your visit today, we recorded the following information about you: Johnson Cain 11/04/2023 12:01 PM Signed The patient is active with [employer], LOC 100%, $0.00 deductible has $0.00 remaining, $0.00 OOP has $0.00 remaining. An estimate shows the patient's financial responsibility is $0.00 for each treatment in 2023 since there is no O-O-P max to be reached. The patient does not have a cancer diagnosis or a chemo/radiation regimen. No further Financial Navigator intervention is needed at this time. Allergies As of Date: 11/04/2023 (No Known Allergies) Date Reviewed: 11/03/2023 Reviewed by: Carissa Sanchez RN - Fully Assessed Reason for Visit: Benefits Investigation [4098] Prescriptions as of 11/04/2023 - blood sugar diagnostic test strip Use as directed to check glucose levels up to seven times daily. - Lancets Use as directed to check glucose levels up to seven times daily. - pyridoxine HCl, vitamin B6, (VITAMIN B-6 ORAL) Take by mouth. - diphenhydramine HCl (UNISOM, DIPHENHYDRAMINE, ORAL) Take by mouth. - aspirin 81 mg cap Take 1 tablet by mouth once daily. - docusate sodium (COLACE) 100 mg capsule Take 1 capsule by mouth two times a day. - polyethylene glycol 3350 (MIRALAX) 17 gram packet Take 1 Packet by mouth once daily. Dissolve dose in 4 - 8 ounces of liquid and take as directed. - acetaminophen (TYLENOL ORAL) Take by mouth as needed. - cranberry fruit extract (CRANBERRY EXTRACT ORAL) Take by mouth. - ferrous sulfate (IRON) 325 mg (65 mg iron) tablet Take 1 tablet by mouth two times a day. - multivitamin (CLASSIC ) 28 mg iron- 800 mcg tab(s) Take 1 tablet by mouth once daily. 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] 11/13/2020 Encounter for supervision of other normal pregn*11/14/2020 07/10/2021 Antepartum anemia in third trimester [O99.013] 11/21/2020 07/10/2021 Abnormal glucose complicating [O99.81*03/04/2021 03/16/2021 Diet controlled gestational diabetes mellitus (*03/16/2021 07/10/2021 History of gestational diabetes mellitus [Z86.3*07/10/2021 with uncertain dates in first trimest*01/07/2023 02/08/2023 Supervision of normal [Z34.90] 01/07/2023 02/11/2023 10 weeks gestation of [Z3A.10] 01/07/2023 02/08/2023 Heartburn during in first trimester [*01/07/2023 02/08/2023 Asthma during [O99.519, J45.909] 01/07/2023 02/11/2023 Forceps or vacuum extractor delivery [Z37.9] 01/07/2023 Obesity affecting in first trimester *01/07/2023 02/11/2023 Vaginal bleeding [N93.9] 02/23/2023 07/29/2023 Obesity affecting in first trimester *06/06/2023 Encounter for supervision of high risk pregnanc*06/06/2023 07/29/2023 M-Power Referred [O99.891] 06/06/2023 Dichorionic diamniotic twin in first *07/05/2023 Placenta previa antepartum [O44.00] 08/16/2023 Low-lying placenta [O44.40] 08/26/2023 Low lying placenta without hemorrhage, antepart*10/13/2023 Benign gestational thrombocytopenia in second t*10/14/2023 Anemia during in second trimester [O9*10/14/2023 Abnormal glucose complicating [O99.81*10/14/2023 Maternal iron deficiency anemia complicating pr*10/26/2023 Diet controlled gestational diabetes mellitus (*10/28/2023 Encounter Status:Closed by JOHNSON CAIN on 11/04/23 [facility] CNOVSPon 11-03-2023 CNOVSP Visit (SP) Office (H EMAWS) CHELI OSMAN ([id number]) 1995 F [facility] Date Time Provider Department 11/03/23 10:00 AM TREATMENT RM 17 [facility] During your visit today, we recorded the following information about you: Temperature Pulse Blood pressure 97.4 degrees 92/minute 105/66 Referring Provider: LG MUNSON [[id number]] Allergies As of Date: 11/03/2023 (No Known Allergies) Date Reviewed: 11/03/2023 Reviewed by: Carissa Sanchez RN - Fully Assessed Reason for Visit: Non-Chemotherapy Treatment [795] Primary Visit Diagnosis:Maternal iron deficiency anemia complicating , third trimester [O99.013, D50.9] Order(s):[facility] COMMUNICATION [[id number]] Order #: [id number]: 1 STANDING [] iron sucrose iv piggyback 200 mg in NaCl 0.9% 100 mL (VENOFER)Disp: Rfl: NaCl 0.9% iv infusionDisp: Rfl: diphenhydrAMINE 50 mg injection (BENADRYL)Disp: Rfl: hydrocortisone sodium succinate (PF) 100 mg injection (Solu-CORTEF)Disp: Rfl: EPINEPHrine HCl (PF) 1 mg/mL (1 mL) 0.3 mg injectionDisp: Rfl: N NURSING COMMUNICATION [[id number]] Order #: [id number]: 1 STANDING Prescriptions as of 11/03/2023 - blood sugar diagnostic test strip Use as directed to check glucose levels up to seven times daily. - Lancets Use as directed to check glucose levels up to seven times daily. - pyridoxine HCl, vitamin B6, (VITAMIN B-6 ORAL) Take by mouth. - diphenhydramine HCl (UNISOM, DIPHENHYDRAMINE, ORAL) Take by mouth. - aspirin 81 mg cap Take 1 tablet by mouth once daily. - docusate sodium (COLACE) 100 mg capsule Take 1 capsule by mouth two times a day. - polyethylene glycol 3350 (MIRALAX) 17 gram packet Take 1 Packet by mouth once daily. Dissolve dose in 4 - 8 ounces of liquid and take as directed. - acetaminophen (TYLENOL ORAL) Take by mouth as needed. - cranberry fruit extract (CRANBERRY EXTRACT ORAL) Take by mouth. - ferrous sulfate (IRON) 325 mg (65 mg iron) tablet Take 1 tablet by mouth two times a day. - multivitamin (CLASSIC ) 28 mg iron- 800 mcg tab(s) Take 1 tablet by mouth once daily. 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] 11/13/2020 Encounter for supervision of other normal pregn*11/14/2020 07/10/2021 Antepartum anemia in third trimester [O99.013] 11/21/2020 07/10/2021 Abnormal glucose complicating [O99.81*03/04/2021 03/16/2021 Diet controlled gestational diabetes mellitus (*03/16/2021 07/10/2021 History of gestational diabetes mellitus [Z86.3*07/10/2021 with uncertain dates in first trimest*01/07/2023 02/08/2023 Supervision of normal [Z34.90] 01/07/2023 02/11/2023 10 weeks gestation of [Z3A.10] 01/07/2023 02/08/2023 Heartburn during in first trimester [*01/07/2023 02/08/2023 Asthma during [O99.519, J45.909] 01/07/2023 02/11/2023 Forceps or vacuum extractor delivery [Z37.9] 01/07/2023 Obesity affecting in first trimester *01/07/2023 02/11/2023 Vaginal bleeding [N93.9] 02/23/2023 07/29/2023 Obesity affecting in first trimester *06/06/2023 Encounter for supervision of high risk pregnanc*06/06/2023 07/29/2023 M-Power Referred [O99.891] 06/06/2023 Dichorionic diamniotic twin in first *07/05/2023 Placenta previa antepartum [O44.00] 08/16/2023 Low-lying placenta [O44.40] 08/26/2023 Low lying placenta without hemorrhage, antepart*10/13/2023 Benign gestational thrombocytopenia in second t*10/14/2023 Anemia during in second trimester [O9*10/14/2023 Abnormal glucose complicating [O99.81*10/14/2023 Maternal iron deficiency anemia complicating pr*10/26/2023 Diet controlled gestational diabetes mellitus (*10/28/2023 Encounter Status:Closed by ACRISSA SANCHEZ on 11/03/23 [facility] (INTMMN) CHELI OSMAN ([id number]) 1995 [facility] Date Time Provider Department 10/31/23 LEONORA CHAPMAN INTMMN During your visit today, we recorded the following information about you: Leonora Chapman, RN 10/31/2023 10:54 AM Signed Treatment plan signed and PA approved for IV iron. Ready for scheduling Monica Verduzco 10/31/2023 12:07 PM Addendum Lvm for patient to return the call to schedule the below appointments 3 doses of iron sucrose w/in [address] munson ordering. schedule on 2nd floor Danielle Nicholas 10/31/2023 4:47 PM Signed Patient returned call and scheduled as directed. Danielle Thomas Allergies As of Date: 10/31/2023 (No Known Allergies) Date Reviewed: 10/26/2023 Reviewed by: Leonora Chapman RN - Fully Assessed Reason for Visit: Hematology [Other] Appointment [186] Prescriptions as of 10/31/2023 - blood sugar diagnostic test strip Use as directed to check glucose levels up to seven times daily. - Lancets Use as directed to check glucose levels up to seven times daily. - pyridoxine HCl, vitamin B6, (VITAMIN B-6 ORAL) Take by mouth. - diphenhydramine HCl (UNISOM, DIPHENHYDRAMINE, ORAL) Take by mouth. - aspirin 81 mg cap Take 1 tablet by mouth once daily. - docusate sodium (COLACE) 100 mg capsule Take 1 capsule by mouth two times a day. - polyethylene glycol 3350 (MIRALAX) 17 gram packet Take 1 Packet by mouth once daily. Dissolve dose in 4 - 8 ounces of liquid and take as directed. - acetaminophen (TYLENOL ORAL) Take by mouth as needed. - cranberry fruit extract (CRANBERRY EXTRACT ORAL) Take by mouth. - ferrous sulfate (IRON) 325 mg (65 mg iron) tablet Take 1 tablet by mouth two times a day. - multivitamin (CLASSIC ) 28 mg iron- 800 mcg tab(s) Take 1 tablet by mouth once daily. 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] 11/13/2020 Encounter for supervision of other normal pregn*11/14/2020 07/10/2021 Antepartum anemia in third trimester [O99.013] 11/21/2020 07/10/2021 Abnormal glucose complicating [O99.81*03/04/2021 03/16/2021 Diet controlled gestational diabetes mellitus (*03/16/2021 07/10/2021 History of gestational diabetes mellitus [Z86.3*07/10/2021 with uncertain dates in first trimest*01/07/2023 02/08/2023 Supervision of normal [Z34.90] 01/07/2023 02/11/2023 10 weeks gestation of [Z3A.10] 01/07/2023 02/08/2023 Heartburn during in first trimester [*01/07/2023 02/08/2023 Asthma during [O99.519, J45.909] 01/07/2023 02/11/2023 Forceps or vacuum extractor delivery [Z37.9] 01/07/2023 Obesity affecting in first trimester *01/07/2023 02/11/2023 Vaginal bleeding [N93.9] 02/23/2023 07/29/2023 Obesity affecting in first trimester *06/06/2023 Encounter for supervision of high risk pregnanc*06/06/2023 07/29/2023 M-Power Referred [O99.891] 06/06/2023 Dichorionic diamniotic twin in first *07/05/2023 Placenta previa antepartum [O44.00] 08/16/2023 Low-lying placenta [O44.40] 08/26/2023 Low lying placenta without hemorrhage, antepart*10/13/2023 Benign gestational thrombocytopenia in second t*10/14/2023 Anemia during in second trimester [O9*10/14/2023 Abnormal glucose complicating [O99.81*10/14/2023 Maternal iron deficiency anemia complicating pr*10/26/2023 Diet controlled gestational diabetes mellitus (*10/28/2023 Encounter Status:Closed by LEONORA BROWN on 10/31/23 [facility] Freddie 10-28-2023 [facility] Tele[facility] (OBGYWM) CHELI OSMAN ([id number]) 1995 F [facility] Date Time Provider Department 10/28/23 LG MUNSON OBDUY During your visit today, we recorded the following information about you: Summer Banegas RN 10/28/2023 9:24 AM Signed ----- Message from Lg Munson MD sent at 10/28/2023 8:18 AM EDT ----- Add to record and notify pt of GDM. Please pend supplies thanks Summer Banegas RN 10/28/2023 9:27 AM Signed Orders pending. Please file. We will then contact patient. JARETH Delgadillo Sara, MD 10/28/2023 9:54 AM Signed filed Summer Banegas RN 10/28/2023 2:33 PM Signed Patient notified. Declines diabetic and nutrition consult appointments as patient had GDM in a previous . Summer Banegas RN Allergies As of Date: 10/28/2023 (No Known Allergies) Date Reviewed: 10/26/2023 Reviewed by: Leonora Chapman RN - Fully Assessed Reason for Visit: Results [95] Primary Visit Diagnosis:Gestational diabetes mellitus (GDM), antepartum, gestational diabetes method of control unspecified [O24.419] Order(s):Blood-Glucose MeterUse as directed to check glucose levels up to seven times daily.Disp: 1 EachRfl: 0 blood sugar diagnostic test stripUse as directed to check glucose levels up to seven times daily.Disp: 200 StripRfl: 8 LancetsUse as directed to check glucose levels up to seven times daily.Disp: 200 EachRfl: 8 CONSULT TO DIABETES EDUCATION DSME [[id number]] Order #: [id number]: 2 FUTURE CONSULT TO NUTRITION THERAPY [9020] Order #: [id number]: 4 FUTURE Prescriptions as of 10/28/2023 - Blood-Glucose Meter Use as directed to check glucose levels up to seven times daily. - blood sugar diagnostic test strip Use as directed to check glucose levels up to seven times daily. - Lancets Use as directed to check glucose levels up to seven times daily. - pyridoxine HCl, vitamin B6, (VITAMIN B-6 ORAL) Take by mouth. - diphenhydramine HCl (UNISOM, DIPHENHYDRAMINE, ORAL) Take by mouth. - aspirin 81 mg cap Take 1 tablet by mouth once daily. - docusate sodium (COLACE) 100 mg capsule Take 1 capsule by mouth two times a day. - polyethylene glycol 3350 (MIRALAX) 17 gram packet Take 1 Packet by mouth once daily. Dissolve dose in 4 - 8 ounces of liquid and take as directed. - acetaminophen (TYLENOL ORAL) Take by mouth as needed. - cranberry fruit extract (CRANBERRY EXTRACT ORAL) Take by mouth. - ferrous sulfate (IRON) 325 mg (65 mg iron) tablet Take 1 tablet by mouth two times a day. - multivitamin (CLASSIC ) 28 mg iron- 800 mcg tab(s) Take 1 tablet by mouth once daily. 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] 11/13/2020 Encounter for supervision of other normal pregn*11/14/2020 07/10/2021 Antepartum anemia in third trimester [O99.013] 11/21/2020 07/10/2021 Abnormal glucose complicating [O99.81*03/04/2021 03/16/2021 Diet controlled gestational diabetes mellitus (*03/16/2021 07/10/2021 History of gestational diabetes mellitus [Z86.3*07/10/2021 with uncertain dates in first trimest*01/07/2023 02/08/2023 Supervision of normal [Z34.90] 01/07/2023 02/11/2023 10 weeks gestation of [Z3A.10] 01/07/2023 02/08/2023 Heartburn during in first trimester [*01/07/2023 02/08/2023 Asthma during [O99.519, J45.909] 01/07/2023 02/11/2023 Forceps or vacuum extractor delivery [Z37.9] 01/07/2023 Obesity affecting in first trimester *01/07/2023 02/11/2023 Vaginal bleeding [N93.9] 02/23/2023 07/29/2023 Obesity affecting in first trimester *06/06/2023 Encounter for supervision of high risk pregnanc*06/06/2023 07/29/2023 M-Power Referred [O99.891] 06/06/2023 Dichorionic diamniotic twin in first *07/05/2023 Placenta previa antepartum [O44.00] 08/16/2023 Low-lying placenta [O44.40] 08/26/2023 Low lying placenta without hemorrhage, antepart*10/13/2023 Benign gestational thrombocytopenia in second t*10/14/2023 Anemia during in second trimester [O9*10/14/2023 Abnormal glucose complicating [O99.81*10/14/2023 Maternal iron deficiency anemia complicating pr*10/26/2023 Diet controlled gestational diabetes mellitus (*10/28/2023 Prescriptions ordered this encounter Disp Refills Start End BLOOD-GLUCOSE METER 1 Ea* 0 10/28/2023 10/29/2023 Cmt: Per Insurance Coverage Sig: Use as directed to check glucose levels up to seven times daily. BLOOD SUGAR DIAGNOSTIC STRIPS 200 * 8 10/28/2023 Cmt: Per Insurance Coverage Sig: Use as directed to check glucose levels up to seven times daily. LANCETS 200 * 8 10/28/2023 Cmt: Per Insurance Coverage Sig: Use as directed to check glucose levels up to seven times daily. Encounter N (more content not included)... [facility] CNPNon 10-27-2023 CNPN Telephone (OGFVWE) CHELI OSMAN ([id number]) 1995 [facility] Date Time Provider Department 10/27/23 NURSE DIRECTOR CHANNEL [facility] OGFVWE During your visit today, we recorded the following information about you: Kt Abdalla RN 10/27/2023 9:39 AM Signed 3rd risk assessment form submitted 10/27/23 Kt Abdalla RN Allergies As of Date: 10/27/2023 (No Known Allergies) Date Reviewed: 10/26/2023 Reviewed by: Mc Keller, Leonora, RN - Fully Assessed Reason for Visit: PRAF [7298] Prescriptions as of 10/27/2023 - pyridoxine HCl, vitamin B6, (VITAMIN B-6 ORAL) Take by mouth. - diphenhydramine HCl (UNISOM, DIPHENHYDRAMINE, ORAL) Take by mouth. - aspirin 81 mg cap Take 1 tablet by mouth once daily. - docusate sodium (COLACE) 100 mg capsule Take 1 capsule by mouth two times a day. - polyethylene glycol 3350 (MIRALAX) 17 gram packet Take 1 Packet by mouth once daily. Dissolve dose in 4 - 8 ounces of liquid and take as directed. - acetaminophen (TYLENOL ORAL) Take by mouth as needed. - cranberry fruit extract (CRANBERRY EXTRACT ORAL) Take by mouth. - ferrous sulfate (IRON) 325 mg (65 mg iron) tablet Take 1 tablet by mouth two times a day. - multivitamin (CLASSIC ) 28 mg iron- 800 mcg tab(s) Take 1 tablet by mouth once daily. 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] 11/13/2020 Encounter for supervision of other normal pregn*11/14/2020 07/10/2021 Antepartum anemia in third trimester [O99.013] 11/21/2020 07/10/2021 Abnormal glucose complicating [O99.81*03/04/2021 03/16/2021 Diet controlled gestational diabetes mellitus (*03/16/2021 07/10/2021 History of gestational diabetes mellitus [Z86.3*07/10/2021 with uncertain dates in first trimest*01/07/2023 02/08/2023 Supervision of normal [Z34.90] 01/07/2023 02/11/2023 10 weeks gestation of [Z3A.10] 01/07/2023 02/08/2023 Heartburn during in first trimester [*01/07/2023 02/08/2023 Asthma during [O99.519, J45.909] 01/07/2023 02/11/2023 Forceps or vacuum extractor delivery [Z37.9] 01/07/2023 Obesity affecting in first trimester *01/07/2023 02/11/2023 Vaginal bleeding [N93.9] 02/23/2023 07/29/2023 Obesity affecting in first trimester *06/06/2023 Encounter for supervision of high risk pregnanc*06/06/2023 07/29/2023 M-Power Referred [O99.891] 06/06/2023 Dichorionic diamniotic twin in first *07/05/2023 Placenta previa antepartum [O44.00] 08/16/2023 Low-lying placenta [O44.40] 08/26/2023 Low lying placenta without hemorrhage, antepart*10/13/2023 Benign gestational thrombocytopenia in second t*10/14/2023 Anemia during in second trimester [O9*10/14/2023 Abnormal glucose complicating [O99.81*10/14/2023 Maternal iron deficiency anemia complicating pr*10/26/2023 Encounter Status:Closed by KT ABDALLA on 10/27/23 [facility] GLUCOSE GESTATIONAL, 1 HOURo n 10-26-2023 Glucose 1 Hr post Unsp challenge [Mass/Vol] 214 mg/dL High 74-179 [facility] Comment on above: Order Comment: Speci men Type: BLOOD SPECIMENOrdering Facility: [facility] Address: [address] [place] [address] Result Comment: [facility] Congress of Obstetricians and Gynecologists (Lou/Pilar) guidelines state gestational diabetes mellitus is present when 2 or more of the plasma glucose concentrations meet or exceed the following levels: fastin mg/dl, 1 hr: 180 mg/dl, 2 hr: 155 mg/dl, and 3 hr: 140 mg/dl. Performed By: #### G TGST1 ####[facility] [id number] [place] [address] [place] GLUCOSE GESTATIONAL, 2 HOURo n 10-26-2023 Glucose 2 Hr post Unsp challenge [Mass/Vol] 179 mg/dL High 74-154 [facility] Comment on above: Order Comment: Speci roberta Type: BLOOD SPECIMENOrdering Facility: [facility] Address: [address] [place] [address] Result Comment: [facility] Congress of Obstetricians and Gynecologists (Lou/[place]) guidelines state gestational diabetes mellitus is present when 2 or more of the plasma glucose concentrations meet or exceed the following levels: fastin mg/dl, 1 hr: 180 mg/dl, 2 hr: 155 mg/dl, and 3 hr: 140 mg/dl. Performed By: #### G TGST2 ####[facility] [id number] [place] [address] [place] GLUCOSE GESTATIONAL, 3 HOURo n 10-26-2023 Glucose 3 Hr post Unsp challenge [Mass/Vol] 113 mg/dL Normal 74-139 [facility] Comment on above: Order Comment: Speci roberta Type: BLOOD SPECIMENOrdering Facility: [facility] Address: [address] [place] [address] Result Comment: [facility] Congress of Obstetricians and Gynecologists (Lou/Pilar) guidelines state gestational diabetes mellitus is present when 2 or more of the plasma glucose concentrations meet or exceed the following levels: fastin mg/dl, 1 hr: 180 mg/dl, 2 hr: 155 mg/dl, and 3 hr: 140 mg/dl. Performed By: #### G TGST3 ####[facility] [id number] [place] [address] [place] GLUCOSE GESTATIONAL, FASTING on 10-26-2023 Glucose post fast [Mass/Vol] 85 mg/dL Normal 74-94 [facility] Comment on above: Order Comment: [facility] Type: BLOOD SPECIMENOrdering Facility: [facility] Address: [address] [place] [address] Result Comment: [facility] Congress of Obstetricians and Gynecologists ([place]ake/[place]) guidelines state gestational diabetes mellitus is present when 2 or more of the plasma glucose concentrations meet or exceed the following levels: fastin mg/dl, 1 hr: 180 mg/dl, 2 hr: 155 mg/dl, and 3 hr: 140 mg/dl. Performed By: #### G TGSTF ####[facility] [id number] [place] [address] [place] Ferritin SerPl-mCncon 2023 Ferritin [Mass/Vol] 26.2 ng/mL Normal 14.7-205.1 [facility] Comment on above: Order Comment: Speci men Type: BLOOD SPECIMEN [facility] Facility[facility] Address: [address] [place] [address] Performed By: #### 5 0190-8, 2275-4 #### [facility] CLIA [id number] [address] [place] [address] [place] Iron and Iron binding capaci ty panelon 10-22-2023 Iron [Mass/Vol] 71 ug/dL Normal 41-186 [facility] Comment on above: Order Comment: Speci men Type: BLOOD SPECIMEN [facility] Facility: [facility] Address: [address] [place] [address] Performed By: #### 5 0190-8, 2275- #### [facility] CLIA [id number] [address] [place] [address] [place] Iron binding capacity [Mass/Vol] 431 ug/dL High 232-386 [facility] Comment on above: Order Comment: Speci men Type: BLOOD SPECIMEN [facility] Facility: [facility] Address: [address] [place] [address] Performed By: #### 5 0190-8, 2275-05 #### [facility] CLIA [id number] [address] [place] [address] [place] Iron/TIBC [Molar ratio] 16.5 % Normal 15.0-57.0 [facility] Comment on above: Order Comment: Speci men Type: BLOOD SPECIMEN [facility] Facility: [facility] Address: [address] [place] [address] Performed By: #### 5 0190-8, 2275- #### [facility] CLIA [id number] [address] [place] [address] OF [facility] CNPRicarda 10-14-2023 CNPN Telephone (OBGYWM) CHELI OSMAN ([id number]) 1995 [facility] Date Time Provider Department 10/14/23 LG MUNSON OBGYWM During your visit today, we recorded the following information about you: Lg Munson MD 10/14/2023 1:15 PM Signed See result note about anemia and abnormal 1 hr GTT. 3 hr GTT ordered. Now seeing that pt already has iron supplement previously ordered. Please see if patient is taking oral iron. May need iron studies and blood management referral if already taking given anemia Laisha Marsh RN 10/14/2023 3:59 PM Signed Left message for patient to call office. JARETH Mcrae Trisha, RN 10/14/2023 5:26 PM Signed Patient notified. States she has been taking the ferrous sulfate 325mg every other day. She had to decrease it from daily d/t constipation issues. Should she get iron studies now? Can you please advise since SW left for the day. Aware we will call her back on Tuesday. JARETH Mcrae Trisha, RN 10/14/2023 5:26 PM Signed Addended by: LAISHA MARSH on: 10/14/2023 05:26 PM Modules accepted: Lg Vasquez MD 10/15/2023 4:50 PM Signed Addended by: LG MUNSON on: 10/15/2023 04:50 PM Modules accepted: Laisha Noel RN 10/17/2023 10:13 AM Signed Patient notified that iron labs and blood management referral placed by . She is planning to get labs done 10/21 and already scheduled this. Laisha Marsh RN Allergies As of Date: 10/14/2023 (No Known Allergies) Date Reviewed: 10/13/2023 Reviewed by: Melony Pineda APRN.GARDENIAM - Fully Assessed Reason for Visit: Orders [681] Primary Visit Diagnosis:Abnormal glucose complicating [O99.810] Other Visit Diagnosis:Anemia during in second trimester [O99.012] Order(s):GEST GLUC ALVIN, 3-HR, 100 GM, FASTING [SQGTGST3] Order #: [id number] FUTURE IRON AND TIBC [SQIRON] Order #: [id number] FUTURE FERRITIN [SQFERR] Order #: [id number] FUTURE BLOOD MANAGEMENT REFERRAL [[id number]] Order #: [id number]: 1 Prescriptions as of 10/17/2023 - pyridoxine HCl, vitamin B6, (VITAMIN B-6 ORAL) Take by mouth. - diphenhydramine HCl (UNISOM, DIPHENHYDRAMINE, ORAL) Take by mouth. - aspirin 81 mg cap Take 1 tablet by mouth once daily. - docusate sodium (COLACE) 100 mg capsule Take 1 capsule by mouth two times a day. - polyethylene glycol 3350 (MIRALAX) 17 gram packet Take 1 Packet by mouth once daily. Dissolve dose in 4 - 8 ounces of liquid and take as directed. - acetaminophen (TYLENOL ORAL) Take by mouth as needed. - cranberry fruit extract (CRANBERRY EXTRACT ORAL) Take by mouth. - ferrous sulfate (IRON) 325 mg (65 mg iron) tablet Take 1 tablet by mouth two times a day. - multivitamin (CLASSIC ) 28 mg iron- 800 mcg tab(s) Take 1 tablet by mouth once daily. 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] 11/13/2020 Encounter for supervision of other normal pregn*11/14/2020 07/10/2021 Antepartum anemia in third trimester [O99.013] 11/21/2020 07/10/2021 Abnormal glucose complicating [O99.81*03/04/2021 03/16/2021 Diet controlled gestational diabetes mellitus (*03/16/2021 07/10/2021 History of gestational diabetes mellitus [Z86.3*07/10/2021 with uncertain dates in first trimest*01/07/2023 02/08/2023 Supervision of normal [Z34.90] 01/07/2023 02/11/2023 10 weeks gestation of [Z3A.10] 01/07/2023 02/08/2023 Heartburn during in first trimester [*01/07/2023 02/08/2023 Asthma during [O99.519, J45.909] 01/07/2023 02/11/2023 Forceps or vacuum extractor delivery [Z37.9] 01/07/2023 Obesity affecting in first trimester *01/07/2023 02/11/2023 Vaginal bleeding [N93.9] 02/23/2023 07/29/2023 Obesity affecting in first trimester *06/06/2023 Encounter for supervision of high risk pregnanc*06/06/2023 07/29/2023 M-Power Referred [O99.891] 06/06/2023 Dichorionic diamniotic twin in first *07/05/2023 Placenta previa antepartum [O44.00] 08/16/2023 Low-lying placenta [O44.40] 08/26/2023 Low lying placenta without hemorrhage, antepart*10/13/2023 Benign gestational thrombocytopenia in second t*10/14/2023 Anemia during in second trimester [O9*10/14/2023 Abnormal glucose complicating [O99.81*10/14/2023 Encounter Status:Closed by LG MUNSON on 10/14/23 Normal [facility] CBC W Auto Differential pane l (Bld)on 10-13-2023 Basophils (Bld) [#/Vol] 10*3/uL Normal <0.11 [facility] Comment on above: Order Comment: Speci men Type: BLOOD SPECIMENOrdering Facility: [facility] Address: [address] [place] [address] Performed By: #### 5 7021-8 ####[facility] MISTY NUNES [id number] [place] [address] [place] Basophils/100 WBC (Bld) 0.2 % Normal [facility] Comment on above: Order Comment: Speci men Type: BLOOD SPECIMENOrdering Facility: [facility] Address: [address] [place] [address] Performed By: #### 5 7021-8 ####[facility] [id number] [place] [address] [place] Differential cell count method Nom (Bld) Auto Normal [facility] Comment on above: Order Comment: Speci men Type: BLOOD SPECIMENOrdering Facility: [facility] Address: [address] [place] [address] Performed By: #### 5 7021-8 ####[facility] [id number] [place] [address] [place] Eosinophils (Bld) [#/Vol] 0.16 10*3/uL Normal <0.46 [facility] Comment on above: Order Comment: Speci men Type: BLOOD SPECIMENOrdering Facility: [facility] Address: [address] [place] [address] Performed By: #### 5 7021-8 ####[facility] [id number] [place] [address] [place] Eosinophils/100 WBC (Bld) 1.8 % Normal [facility] Comment on above: Order Comment: Speci men Type: BLOOD SPECIMENOrdering Facility: [facility] Address: [address] [place] [address] Performed By: #### 5 7021-8 ####[facility] [id number] [place] [address] [place] Erythrocyte distribution width (RBC) [Ratio] 14.6 % Normal 11.5-15.0 [facility] Comment on above: Order Comment: Speci men Type: BLOOD SPECIMENOrdering Facility: [facility] Address: [address] [place] [address] Performed By: #### 5 7021-8 ####[facility] SUNIDELTAZEHRA [id number] [place] [address] [place] Hematocrit (Bld) [Volume fraction] 30.1 % Low 36.0-46.0 [facility] Comment on above: Order Comment: Speci men Type: BLOOD SPECIMENOrdering Facility: [facility] Address: [address] [place] [address] Performed By: #### 5 7021-8 ####[facility]ITALNCCEN[facility] [id number] [place] [address] [place] Hemoglobin (Bld) [Mass/Vol] 10.2 g/dL Low 11.5-15.5 [facility] Comment on above: Order Comment: Speci men Type: BLOOD SPECIMENOrdering Facility: [facility] Address: [address] [place] [address] Performed By: #### 5 7021-8 ####[facility] [id number] [place] [address] [place] Immature granulocytes (Bld) [#/Vol] 0.11 10*3/uL High <0.10 [facility] Comment on above: Order Comment: Speci men Type: BLOOD SPECIMENOrdering Facility: [facility] Address: [address] [place] [address] Performed By: #### 5 7021-8 ####[facility]ITALNCLIA [id number] [place] [address] [place] Immature granulocytes/100 WBC (Bld) 1.2 % Normal [facility] Comment on above: Order Comment: Speci men Type: BLOOD SPECIMENOrdering Facility: [facility] Address: [address] [place] [address] Performed By: #### 5 7021-8 ####[facility] MILLWNCLIA [id number] [place] [address] [place] Lymphocytes (Bld) [#/Vol] 1.60 10*3/uL Normal 1.00-4.00 [facility] Comment on above: Order Comment: Speci men Type: BLOOD SPECIMENOrdering Facility: [facility] Address: [address] [place] [address] Performed By: #### 5 7021-8 ####[facility] [id number] [place] [address] [place] Lymphocytes/100 WBC (Bld) 17.8 % Normal [facility] Comment on above: Order Comment: Speci men Type: BLOOD SPECIMENOrdering Facility: [facility] Address: [address] [place] [address] Performed By: #### 5 7021-8 ####[facility] [id number] [place] [address] [place] MCH (RBC) [Entitic mass] 30.1 pg Normal 26.0-34.0 [facility] Comment on above: Order Comment: Speci men Type: BLOOD SPECIMENOrdering Facility: [facility] Address: [address] [place] [address] Performed By: #### 5 7021-8 ####[facility] [id number] [place] [address] [place] MCHC (RBC) [Mass/Vol] 33.9 g/dL Normal 30.5-36.0 [facility] Comment on above: Order Comment: Speci men Type: BLOOD SPECIMENOrdering Facility: [facility] Address: [address] [place] [address] Performed By: #### 5 7021-8 ####[facility]ITALNCLIA [id number] [place] [address] [place] MCV (RBC) [Entitic vol] 88.8 fL Normal 80.0-100.0 [facility] Comment on above: Order Comment: Speci men Type: BLOOD SPECIMENOrdering Facility: [facility] Address: [address] [place] [address] Performed By: #### 5 7021-8 ####[facility] [id number] [place] [address] [place] Monocytes (Bld) [#/Vol] 0.45 10*3/uL Normal <0.87 [facility] Comment on above: Order Comment: Speci men Type: BLOOD SPECIMENOrdering Facility: [facility] Address: [address] [place] [address] Performed By: #### 5 7021-8 ####[facility] [id number] [place] [address] [place] Monocytes/100 WBC (Bld) 5.0 % Normal [facility] Comment on above: Order Comment: Speci men Type: BLOOD SPECIMENOrdering Facility: [facility] Address: [address] [place] [address] Performed By: #### 5 7021-8 ####[facility] [id number] [place] [address] [place] Neutrophils (Bld) [#/Vol] 6.63 10*3/uL Normal 1.45-7.50 [facility] Comment on above: Order Comment: Speci men Type: BLOOD SPECIMENOrdering Facility: [facility] Address: [address] [place] [address] Performed By: #### 5 7021-8 ####[facility] [id number] [place] [address] [place] Neutrophils/100 WBC (Bld) 74.0 % Normal [facility] Comment on above: Order Comment: Speci men Type: BLOOD SPECIMENOrdering Facility: [facility] Address: [address] [place] [address] Performed By: #### 5 7021-8 ####[facility]ITALCHINA [id number] [place] [address] [place] Nucleated RBC (Bld) [#/Vol] 10*3/uL Normal <0.01 [facility] Comment on above: Order Comment: Speci men Type: BLOOD SPECIMENOrdering Facility: [facility] Address: [address] [place] [address] Performed By: #### 5 7021-8 ####[facility]ITALNCCENTR[facility] [id number] [place] [address] [place] Nucleated RBC/100 WBC (Bld) [Ratio] 0.0 /100 WBC Normal [facility] Comment on above: Order Comment: Speci men Type: BLOOD SPECIMENOrdering Facility: [facility] Address: [address] [place] [address] Performed By: #### 5 7021-8 ####[facility] [id number] [place] [address] [place] Platelet mean volume (Bld) [Entitic vol] 9.4 fL Normal 9.0-12.7 [facility] Comment on above: Order Comment: Speci men Type: BLOOD SPECIMENOrdering Facility: [facility] Address: [address] [place] [address] Performed By: #### 5 7021-8 ####[facility] [id number] [place] [address] [place] Platelets (Bld) [#/Vol] 145 10*3/uL Low 150-400 [facility] Comment on above: Order Comment: Speci men Type: BLOOD SPECIMENOrdering Facility: [facility] Address: [address] [place] [address] Performed By: #### 5 7021-8 ####[facility]ITALNCLIA [id number] [place] [address] [place] RBC (Bld) [#/Vol] 3.39 10*6/uL Low 3.90-5.20 [facility] Comment on above: Order Comment: Speci men Type: BLOOD SPECIMENOrdering Facility: [facility] Address: [address] [place] [address] Performed By: #### 5 7021-8 ####[facility]OS[facility]ITALNCA [id number] [place] [address] [place] WBC (Bld) [#/Vol] 8.97 10*3/uL Normal 3.70-11.00 [facility] Comment on above: Order Comment: Speci men Type: BLOOD SPECIMENOrdering Facility: [facility] Address: [address] [place] [address] Performed By: #### 5 7021-8 ####[facility] [id number] [place] [address] [place] Examination level ultrasound on 10-13-2023 [facility] Radiology Study observation (narrative) [facility] GESTATIONAL GLUCOSE SCREEN, 1-HOUR, 50 GRAM, NON-FASTINGon 10-13-2023 Glucose [Mass/Vol] 151 mg/dL High 74-134 [facility] Comment on above: Order Comment: Speci men Type: BLOOD SPECIMENOrdering Facility: [facility] Address: [address] [place], [place] [address] Result Comment: [facility] Congress of Obstetricians and Gynecologists (Lou/Pilar) guidelines state a gestational diabetes mellitus positive screen is made, in women not previously diagnosed with overt diabetes, when the 1 hr plasma glucose level is equal to or above 140 mg/dL. The [facility] Body Team Member and [facility] recommends a 135 mg/dL cutoff. Performed By: #### G LTGST ####[facility] [id number] [place] [address] [place] Reagin and Treponema pallidu m IgG and IgM [Interp]on 10-13-2023 T. pallidum IgG+IgM IA Ql (S) Non-Reactive Normal Nonreactive [facility] Comment on above: Order Comment: Speci men Type: BLOOD SPECIMENOrdering Facility: [facility] Address: [address] [place] [address] Performed By: #### 7 3752-8 ####[facility] LABIA [id number] [place] [address] [place] Reagin+T pallidum IgG+IgM Se rPl-Impon 10-13-2023 Reagin and Treponema pallidum IgG and IgM [Interp] Cannot exclude recent Treponemal infection if specimen collected within 7-10 days after appearance of suspect lesions or 2-3 weeks after an exposure. Clinical correlation is required. Normal [facility] Comment on above: Order Comment: Speci men Type: BLOOD SPECIMENOrdering Facility: 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 - polyethylene glycol 3350 (MIRALAX) 17 gram packet Take 1 Packet by mouth once daily. Dissolve dose in 4 - 8 ounces of liquid and take as directed. - acetaminophen (TYLENOL ORAL) Take by mouth as needed. - cranberry fruit extract (CRANBERRY EXTRACT ORAL) Take by mouth. - ferrous sulfate (IRON) 325 mg (65 mg iron) tablet Take 1 tablet by mouth two times a day. - multivitamin (CLASSIC ) 28 mg iron- 800 mcg tab(s) Take 1 tablet by mouth once daily. 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] 11/13/2020 Encounter for supervision of other normal pregn*11/14/2020 07/10/2021 Antepartum anemia in third trimester [O99.013] 11/21/2020 07/10/2021 Abnormal glucose complicating [O99.81*03/04/2021 03/16/2021 Diet controlled gestational diabetes mellitus (*03/16/2021 07/10/2021 History of gestational diabetes mellitus [Z86.3*07/10/2021 with uncertain dates in first trimest*01/07/2023 02/08/2023 Supervision of normal [Z34.90] 01/07/2023 02/11/2023 10 weeks gestation of [Z3A.10] 01/07/2023 02/08/2023 Heartburn during in first trimester [*01/07/2023 02/08/2023 Asthma during [O99.519, J45.909] 01/07/2023 02/11/2023 Forceps or vacuum extractor delivery [Z37.9] 01/07/2023 Obesity affecting in first trimester *01/07/2023 02/11/2023 Vaginal bleeding [N93.9] 02/23/2023 07/29/2023 Obesity affecting in first trimester *06/06/2023 Encounter for supervision of high risk pregnanc*06/06/2023 07/29/2023 M-Power Referred [O99.891] 06/06/2023 Dichorionic diamniotic twin in first *07/05/2023 Placenta previa antepartum [O44.00] 08/16/2023 Encounter Status:Closed by KT ABDALLA on 08/26/23 [facility] CHELI OSMAN ([id number]) 1995 [facility] Date Time Provider Department 08/26/23 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 - polyethylene glycol 3350 (MIRALAX) 17 gram packet Take 1 Packet by mouth once daily. Dissolve dose in 4 - 8 ounces of liquid and take as directed. - acetaminophen (TYLENOL ORAL) Take by mouth as needed. - cranberry fruit extract (CRANBERRY EXTRACT ORAL) Take by mouth. - ferrous sulfate (IRON) 325 mg (65 mg iron) tablet Take 1 tablet by mouth two times a day. - multivitamin (CLASSIC ) 28 mg iron- 800 mcg tab(s) Take 1 tablet by mouth once daily. Problem List As Of Date 08/26/2023 Noted Resolved Nausea and vomiting during [O21.9] 11/13/2020 02/11/2023 History of Nccp-Yawtb-Fymylxd 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] 11/13/2020 Encounter for supervision of other normal pregn*11/14/2020 07/10/2021 Antepartum anemia in third trimester [O99.013] 11/21/2020 07/10/2021 Abnormal glucose complicating [O99.81*03/04/2021 03/16/2021 Diet controlled gestational diabetes mellitus (*03/16/2021 07/10/2021 History of gestational diabetes mellitus [Z86.3*07/10/2021 with uncertain dates in first trimest*01/07/2023 02/08/2023 Supervision of normal [Z34.90] 01/07/2023 02/11/2023 10 weeks gestation of [Z3A.10] 01/07/2023 02/08/2023 Heartburn during in first trimester [*01/07/2023 02/08/2023 Asthma during [O99.519, J45.909] 01/07/2023 02/11/2023 Forceps or vacuum extractor delivery [Z37.9] 01/07/2023 Obesity affecting in first trimester *01/07/2023 02/11/2023 Vaginal bleeding [N93.9] 02/23/2023 07/29/2023 Obesity affecting in first trimester *06/06/2023 Encounter for supervision of high risk pregnanc*06/06/2023 07/29/2023 M-Power Referred [O99.891] 06/06/2023 Dichorionic diamniotic twin in first *07/05/2023 Placenta previa antepartum [O44.00] 08/16/2023 Encounter Status:Closed by KT ABDALLA on 08/26/23 Normal [facility] Freddie 08-16-2023 CNPN Telephone (OBGYWM) CHELI OSMAN ([id number]) 1995 [facility] Date Time Provider Department 08/16/23 HARRISON CAM OBGYWM During your visit today, we recorded the following information about you: Allergies As of Date: 08/16/2023 (No Known Allergies) Date Reviewed: 08/16/2023 Reviewed by: Harrison Cam MD - Fully Assessed Prescriptions as of 08/17/2023 - docusate sodium (COLACE) 100 mg capsule Take 1 capsule by mouth two times a day. - polyethylene glycol 3350 (MIRALAX) 17 gram packet Take 1 Packet by mouth once daily. Dissolve dose in 4 - 8 ounces of liquid and take as directed. - acetaminophen (TYLENOL ORAL) Take by mouth as needed. - cranberry fruit extract (CRANBERRY EXTRACT ORAL) Take by mouth. - ferrous sulfate (IRON) 325 mg (65 mg iron) tablet Take 1 tablet by mouth two times a day. - multivitamin (CLASSIC ) 28 mg iron- 800 mcg tab(s) Take 1 tablet by mouth once daily. Problem List As Of Date 08/16/2023 Noted Resolved Nausea and vomiting during [O21.9] 11/13/2020 02/11/2023 History of Hhnm-Zhyvj-Oriyrhl 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] 11/13/2020 Encounter for supervision of other normal pregn*11/14/2020 07/10/2021 Antepartum anemia in third trimester [O99.013] 11/21/2020 07/10/2021 Abnormal glucose complicating [O99.81*03/04/2021 03/16/2021 Diet controlled gestational diabetes mellitus (*03/16/2021 07/10/2021 History of gestational diabetes mellitus [Z86.3*07/10/2021 with uncertain dates in first trimest*01/07/2023 02/08/2023 Supervision of normal [Z34.90] 01/07/2023 02/11/2023 10 weeks gestation of [Z3A.10] 01/07/2023 02/08/2023 Heartburn during in first trimester [*01/07/2023 02/08/2023 Asthma during [O99.519, J45.909] 01/07/2023 02/11/2023 Forceps or vacuum extractor delivery [Z37.9] 01/07/2023 Obesity affecting in first trimester *01/07/2023 02/11/2023 Vaginal bleeding [N93.9] 02/23/2023 07/29/2023 Obesity affecting in first trimester *06/06/2023 Encounter for supervision of high risk pregnanc*06/06/2023 07/29/2023 M-Power Referred [O99.891] 06/06/2023 Dichorionic diamniotic twin in first *07/05/2023 Placenta previa antepartum [O44.00] 08/16/2023 Encounter Status:Closed by NEIL GAYTAN on 08/17/23 Normal [facility] Examination level ultrasound on 08-16-2023 [facility] Radiology Study observation (narrative) [facility] nuchal translucency me asured by Alexus 07-12-2023 Indication First trimester screening. Obesity, BMI >30, Makayla twins Impression 1. Live, dichorionic/diamniotic twin . 2. [place] rump length measurement is consistent with the established gestational age for both fetuses. 3. The crown rump lengths are concordant. 4. No gross abnormalities are noted for either fetus. 5. The nuchal translucency measurement appears within normal limits for both fetuses. The measurement is 1.3 mm for fetus A and 1.3 mm for fetus B. 6. Unremarkable adnexal appearance. Recommendations 1. Follow up at 18-20 weeks for a detailed anatomic survey. 2. Serial growth ultrasounds every 4 weeks starting at 24 weeks. 3. Additional follow up as clinically indicated. Maternal Assessment Height 155 cm Height (ft) 5 ft Height (in) 1 in Method Transabdominal ultrasound examination Twin . Number of fetuses: 2. Dichorionic-diamniotic Dating LMP on: 04/01/2023 GA by LMP 14 w + 4 d BRODERICK by LMP: 01/06/2024 GA by prior assessment 13 w + 4 d BRODERICK by prior assessment: 01/13/2024 Ultrasound examination on: 07/12/2023 GA by U/S based upon: CRL GA by U/S 12 w + 6 d BRODERICK by U/S: 01/18/2024 GA by U/S based upon (Fetus 2): CRL GA by U/S (Fetus 2) 13 w + 3 d BRODERICK by U/S (Fetus 2): 01/14/2024 Assigned: based on ultrasound (CRL), selected on 06/06/2023 Assigned GA 13 w + 4 d Assigned BRODERICK: 01/13/2024 Fetus A: General Evaluation Cardiac activity present Placenta: anterior Cord vessels: 3 vessel cord Amniotic fluid: normal amount Fetus B: General Evaluation Cardiac activity present Placenta: anterior Cord vessels: 3 vessel cord Amniotic fluid: normal amount Fetus A: Biometry Standard FHR 151 bpm CRL 65.3 mm 12w 6d 10% Hadlock NT 1.30 mm Extended Nasal bone 3.7 mm Fetus B: Biometry Standard FHR 161 bpm CRL 72.8 mm 13w 3d 39% Hadlock NT 1.30 mm Fetus A: Anatomy The following structures appear normal: Cranium. Face. Abdominal wall. Stomach. Bladder. Arms. Legs. Fetus B: Anatomy The following structures appear normal: Cranium. Face. Abdominal wall. Stomach. Bladder. Arms. Legs. Maternal Structures Uterus / Cervix Uterus: Visualized Uterus position: anteverted Ovaries / Tubes / Adnexa Rt ovary: Visualized Rt ovary morphology: normal Rt ovary D1 35 mm Rt ovary D2 31 mm Rt ovary D3 26 mm Rt ovary Vol 14.7 cm Lt ovary: Visualized Lt ovary morphology: normal Lt ovary D1 37 mm Lt ovary D2 25 mm Lt ovary D3 27 mm Lt ovary Vol 12.7 cm Performed By: Denia Montemayor RDMS Read By: Brooklyn Freeman M.D. MATERNAL MEDICINE [facility] Radiology Study observation (narrative) [facility] .GFRon 06-28-2023 GFR Non- 135 ml/min/1.73sqm Normal [facility] ([place]) Comment on above: Result Comment: GFR Population mean for , Non- Americans Ages 20-29 = 116 mL/min/1.73 sq.m. Ages 30-39 = 107 mL/min/1.73 sq.m. Ages 40-49 = 99 mL/min/1.73 sq.m. Ages 50-59 = 93 mL/min/1.73 sq.m. Ages 60-69 = 85 mL/min/1.73 sq.m. Ages 70+ = 75 mL/min/1.73 sq.m. Chronic Kidney Disease: Less than 60 mL/min/1.73 square meters End Stage Renal Disease: Less than 15 mL/min/1.73 square meters Performed By: #### U AMICAO PREGU, UA #### [address] [address] GFR 164 ml/min/1.73sqm Normal [facility] ([place]) Comment on above: Result Comment: GFR Population mean for , Non- Americans Ages 20-29 = 116 mL/min/1.73 sq.m. Ages 30-39 = 107 mL/min/1.73 sq.m. Ages 40-49 = 99 mL/min/1.73 sq.m. Ages 50-59 = 93 mL/min/1.73 sq.m. Ages 60-69 = 85 mL/min/1.73 sq.m. Ages 70+ = 75 mL/min/1.73 sq.m. Chronic Kidney Disease: Less than 60 mL/min/1.73 square meters End Stage Renal Disease: Less than 15 mL/min/1.73 square meters Performed By: #### U AMICAO PREGU, UA #### [address] [address] BMPon 06-28-2023 BUN/Creatinine Ratio 11 ratio Normal 7-27 [facility] ([place]) Comment on above: Performed By: #### U AMICAO PREGU, UA #### [place] [id number] [place], [place] [address] Calcium [Mass/Vol] 8.4 mg/dL Normal 8.4-10.2 [facility] ([place]) Comment on above: Performed By: #### U AMICAO PREGU, UA #### [address] [address] Chloride [Moles/Vol] 102 mmol/L Normal 98-107 [facility] ([place]) Comment on above: Performed By: #### U AMICAO, PREGU, UA #### [address] [address] CO2 [Moles/Vol] 24 mmol/L Normal 22-29 [facility] ([place]) Comment on above: Performed By: #### U AMICAO, PREGU, UA #### [address] [address] Creatinine [Mass/Vol] 0.53 mg/dL Low 0.55-1.02 [facility] ([place]) Comment on above: Performed By: #### U AMICAO, PREGU, UA #### [address] [address] Electrolyte Balance 11.0 mEq/L Normal 4.0-15.0 [facility] ([place]) Comment on above: Performed By: #### U AMICAO, PREGU, UA #### [address] [address] Glucose [Mass/Vol] 79 mg/dL Normal 70-105 [facility] ([place]) Comment on above: Performed By: #### U AMICAO, PREGU, UA #### [address] [address] Potassium [Moles/Vol] 3.0 mmol/L Low 3.5-5.1 [facility] ([place]) Comment on above: Performed By: #### U AMICAO, PREGU, UA #### [address] [address] Sodium [Moles/Vol] 137 mmol/L Normal 136-145 [facility] ([place]) Comment on above: Performed By: #### U AMICAO, PREGU, UA #### [address] [address] Urea nitrogen [Mass/Vol] 6 mg/dL Low 7-18 [facility] ([place]) Comment on above: Performed By: #### JOSEF SINGHU, UA #### [address] [address] .Auto Diffon 06-27-2023 Basophil, Absolute 0.0 10 3/mcL Normal 0.0-0.2 [facility] ([place]) Comment on above: Performed By: #### JOSEF SINGHU, UA #### [address] [address] Basophils/100 WBC (Bld) 0.3 % Normal 0.0-2.5 [facility] ([place]) Comment on above: Performed By: #### JOSEF SINGHU, UA #### [address] [address] Eosinophil, Absolute 0.1 10 3/mcL Normal 0.0-0.4 [facility] ([place]) Comment on above: Performed By: #### JOSEF SINGHU, UA #### [address] [address] Eosinophils/100 WBC (Bld) 1.4 % Normal 0.0-7.0 [facility] ([place]) Comment on above: Performed By: #### JOSEF SINGHU, UA #### [address] [address] Lymphocyte, Absolute 1.7 10 3/mcL Normal 0.8-3.9 [facility] ([place]) Comment on above: Performed By: #### Maura HEATH PREGU, UA #### [address] [address] Lymphocytes/100 WBC (Bld) 26.4 % Normal 10.0-50.0 [facility] ([place]) Comment on above: Performed By: #### Maura HEATH PREGU, UA #### [address] [address] Monocyte, Absolute 0.4 10 3/mcL Normal 0.2-1.0 [facility] ([place]) Comment on above: Performed By: #### U DEENACAO PREGU, UA #### [address] [address] Monocytes/100 WBC (Bld) 6.1 % Normal 1.7-13.0 [facility] ([place]) Comment on above: Performed By: #### U KUMAR PREGU, UA #### [address] [address] Neutrophils/100 WBC (Bld) 65.8 % Normal 37.0-80.0 [facility] ([place]) Comment on above: Performed By: #### Maura HEATH PREGU, UA #### [place] [address] .MDWon 06-27-2023 Monocyte Distribution Width 19.79 Normal 0.00-20.00 [facility] ([place]) Comment on above: Result Comment: For ED adult patients suspected of sepsis, MDW<=20.0 does not rule out sepsis or risk of sepsis Performed By: #### Maura HEATH PREGU, UA #### [address] [address] .NEUABSon 06-27-2023 Neutrophil, Absolute 4.3 10 3/mcL Normal 2.9-6.2 [facility] ([place]) Comment on above: Performed By: #### JOSEF SINGHU, UA #### [address] [address] CBCon 06-27-2023 Erythrocyte distribution width (RBC) [Ratio] 15.1 % High 11.5-14.5 [facility] ([place]) Comment on above: Performed By: #### Maura HEATH, PREGU, UA #### [address] [address] Hematocrit (Bld) [Volume fraction] 32.6 % Low 37.0-47.0 [facility] ([place]) Comment on above: Performed By: #### U KUMAR PREGU, UA #### [place] [id number] Hgb 11.5 G/dL Low 12.0-16.0 [facility] ([place]) Comment on above: Performed By: #### EMI SINGH UA #### Debbie [address] [address] MCH (RBC) [Entitic mass] 28.9 pg Normal 27.0-31.2 [facility] ([place]) Comment on above: Performed By: #### EMI SINGH, UA #### [place]bbie [address] [address] MCHC 35.4 G/dL Normal 33.0-37.0 [facility] ([place]) Comment on above: Performed By: #### EMI SINGH UA #### [place]bbie [address] [address] MCV (RBC) [Entitic vol] 81.6 fL Normal 80.0-94.0 [facility] ([place]) Comment on above: Performed By: #### EMI SINGH, UA #### [place]bbie [address] [address] Platelet 203 10 3/mcL Normal 130-400 [facility] ([place]) Comment on above: Performed By: #### EMI SINGH UA #### [place]bbie [address] [address] Platelet mean volume (Bld) [Entitic vol] 7.4 fL Normal 7.4-10.4 [facility] ([place]) Comment on above: Performed By: #### EMI SINGH, UA #### [place]bbie [address] [address] RBC 3.99 10 6/mcL Low 4.20-5.40 [facility] ([place]) Comment on above: Performed By: #### EMI SINGH, UA #### [place]bbie [address] [address] WBC 6.5 10 3/mcL Normal 4.6-10.8 [facility] ([place]) Comment on above: Performed By: #### U EMI HEATH UA #### [place]bbie [address] [address] Freddie 06-27-2023 CNPN Telephone (OBGYWM) CHELI OSMAN ([id number]) 1995 F [facility] Date Time Provider Department 06/27/23 LINH ZIMMERMAN OBGYWM During your visit today, we recorded the following information about you: Laisha Marsh RN 06/27/2023 4:20 PM Signed 11w3d Calling with c/o vomiting and diarrhea. No fever or body aches. 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 Only able to keep some sips of water a couple crackers down in over 24 hours. Starting to feel weak, but no dizziness yet. She is planning to go to ER for IV fluids and nausea medication. Next visit is 07/04. Advised to call back if sooner appointment needed after ER. JASON. JARETH Mcrae Deidre, MD 06/27/2023 4:23 PM Signed noted Allergies As of Date: 06/27/2023 (No Known Allergies) Date Reviewed: 06/13/2023 Reviewed by: Nate Aviles APRN.PROFESSOR OF PATHOLOGY - Fully Assessed Reason for Visit: OB- N/V [Other] Prescriptions as of 06/27/2023 - acetaminophen (TYLENOL ORAL) Take by mouth as needed. - cranberry fruit extract (CRANBERRY EXTRACT ORAL) Take by mouth. - ferrous sulfate (IRON) 325 mg (65 mg iron) tablet Take 1 tablet by mouth two times a day. - multivitamin (CLASSIC ) 28 mg iron- 800 mcg tab(s) Take 1 tablet by mouth once daily. 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] 11/13/2020 Encounter for supervision of other normal pregn*11/14/2020 07/10/2021 Antepartum anemia in third trimester [O99.013] 11/21/2020 07/10/2021 Abnormal glucose complicating [O99.81*03/04/2021 03/16/2021 Diet controlled gestational diabetes mellitus (*03/16/2021 07/10/2021 History of gestational diabetes mellitus [Z86.3*07/10/2021 with uncertain dates in first trimest*01/07/2023 02/08/2023 Supervision of normal [Z34.90] 01/07/2023 02/11/2023 10 weeks gestation of [Z3A.10] 01/07/2023 02/08/2023 Heartburn during in first trimester [*01/07/2023 02/08/2023 Asthma during [O99.519, J45.909] 01/07/2023 02/11/2023 Forceps or vacuum extractor delivery [Z37.9] 01/07/2023 Obesity affecting in first trimester *01/07/2023 02/11/2023 Vaginal bleeding [N93.9] 02/23/2023 Obesity affecting in first trimester *06/06/2023 Encounter for supervision of high risk pregnanc*06/06/2023 M-Power Referred [O99.891] 06/06/2023 Encounter Status:Closed by LAISHA MARSH on 06/27/23 Normal [facility] LABORATORYOrdered By: SYSTEM SYSTEM on 06-27-2023 Basophil, Absolute 0.0 103/mcL Normal 0.0 - 0.2 10^3/mcL AO Workflow SS Basophils/100 WBC (Bld) 0.3 % Normal 0.0 - 2.5 % AO Workflow SS Calcium [Mass/Vol] 8.4 mg/dL Normal 8.4 - 10. 2 mg/dL AO ADM SS Chloride [Moles/Vol] 102 mmol/L Normal 98 - 107 mmol/L AO ADM SS CO2 [Moles/Vol] 24 mmol/L Normal 22 - 29 mmol/L AO AD M SS Creatinine [Mass/Vol] 0.53 mg/dL Low 0.55 - 1.02 mg/dL AO ADM SS Electrolyte Balance 11.0 mEq/L Normal 4.0 - 15.0 mEq/L AO ADM SS Eosinophil, Absolute 0.1 103/mcL Normal 0.0 - 0.4 10^3/mcL AO Workflow SS Eosinophils/100 WBC (Bld) 1.4 % Normal 0.0 - 7.0 % AO Workflow SS Erythrocyte distribution width (RBC) [Ratio] 15.1 % High 11.5 - 14.5 % AO Workflow SS GFR/1.73 sq M.predicted among blacks MDRD (S/P/Bld) [Vol rate/Area] 164 ml/min/1.73sqm Invalid Interpretation Code AO Chemistry S Comment on above: Interpretive Data: GFR Population mean for , Non- Americans Ages 20-29 = 116 mL/min/1.73 sq.m. Ages 30-39 = 107 mL/min/1.73 sq.m. Ages 40-49 = 99 mL/min/1.73 sq.m. Ages 50-59 = 93 mL/min/1.73 sq.m. Ages 60-69 = 85 mL/min/1.73 sq.m. Ages 70+ = 75 mL/min/1.73 sq.m. Chronic Kidney Disease: Less than 60 mL/min/1.73 square meters End Stage Renal Disease: Less than 15 mL/min/1.73 square meters GFR/1.73 sq M.predicted among non-blacks MDRD (S/P/Bld) [Vol rate/Area] 135 ml/min/1.73sqm Invalid Interpretation Code AO Chemistry S Comment on above: Interpretive Data: GFR Population mean for , Non- Americans Ages 20-29 = 116 mL/min/1.73 sq.m. Ages 30-39 = 107 mL/min/1.73 sq.m. Ages 40-49 = 99 mL/min/1.73 sq.m. Ages 50-59 = 93 mL/min/1.73 sq.m. Ages 60-69 = 85 mL/min/1.73 sq.m. Ages 70+ = 75 mL/min/1.73 sq.m. Chronic Kidney Disease: Less than 60 mL/min/1.73 square meters End Stage Renal Disease: Less than 15 mL/min/1.73 square meters Glucose [Mass/Vol] 79 mg/dL Normal 70 - 105 mg/dL AO ADM SS Hematocrit (Bld) [Volume fraction] 32.6 % Low 37.0 - 47.0 % AO Workflow SS Hemoglobin (Bld) [Mass/Vol] 11.5 G/dL Low 12.0 - 16.0 G/dL AO Workflow SS Lymphocyte, Absolute 1.7 103/mcL Normal 0.8 - 3.9 10^3/mcL AO Workflow SS Lymphocytes/100 WBC (Bld) 26.4 % Normal 10.0 - 50.0 % AO Workflow SS MCH (RBC) [Entitic mass] 28.9 pg Normal 27.0 - 31.2 pg AO Workflow SS MCHC 35.4 G/dL Normal 33.0 - 37.0 G/dL AO Workflow SS MCV (RBC) [Entitic vol] 81.6 fL Normal 80.0 - 94.0 fL AO Workflow SS Monocyte distribution width Auto (Bld) [Entitic vol] 19.79 1 Normal 0.00 - 20.00 AO Workflow SS Comment on above: Result Comment: For ED adult patients suspected of sepsis, MDW<=20.0 does not rule out sepsis or risk of sepsis Monocyte, Absolute 0.4 103/mcL Normal 0.2 - 1.0 10^3/mcL AO Workflow SS Monocytes/100 WBC (Bld) 6.1 % Normal 1.7 - 13.0 % AO Workflow SS Neutrophil, Absolute 4.3 103/mcL Normal 2.9 - 6.2 10^3/mcL AO Workflow SS Neutrophils/100 WBC (Bld) 65.8 % Normal 37.0 - 80.0 % AO Workflow SS Platelet mean volume (Bld) [Entitic vol] 7.4 fL Normal 7.4 - 10.4 fL AO Workflow SS Platelets (Bld) [#/Vol] 203 103/mcL Normal 130 - 400 10^3/mcL AO Workflow SS Potassium [Moles/Vol] 3.0 mmol/L Low 3.5 - 5.1 mmol/L AO ADM SS RBC (Bld) [#/Vol] 3.99 106/mcL Low 4.20 - 5.4 0 10^6/mcL AO Workflow SS Sodium [Moles/Vol] 137 mmol/L Normal 136 - 145 mmol/L AO ADM SS Urea nitrogen [Mass/Vol] 6 mg/dL Low 7 - 18 mg/dL AO ADM SS Urea nitrogen/Creatinin e [Mass ratio] 11 ratio Normal 7 - 27 ratio AO ADM SS WBC (Bld) [#/Vol] 6.5 103/mcL Normal 4.6 - 10.8 10^3/mcL AO Workflow SS CNCOon 06-23-2023 CNCO Letter Text Normal [facility] CNOVon 06-13-2023 CNOV Office Visit ([facility] ) CHELI OSMAN ([id number]) 1995 [facility] Date Time Provider Department 06/13/23 4:05 PM [place] [facility] During your visit today, we recorded the following information about you: Temperature Pulse Respiration Blood pressure 98 degrees 95/minute 17/minute 119/79 Weight 83.8 kg Nate Aviles APRN.PROFESSOR OF PATHOLOGY 06/13/2023 4:40 PM Signed [facility] [place] [address] [address] Dept: [phone] Dept Subjective Cheli Osman is a 28 year old female who presents with Sore Throat (FOR 2 DAYS ), Nausea AND Vomiting, Ear Pain (RIGHT EAR ), and Fever (100.7) HPI: A 28-year-old female who is a 9 weeks comes in with complaints of 2 days worth of right ear pain, fever, sore throat. Patient states also some slight nausea and vomiting. She states it does hurt to swallow. Has not utilize any lucl-crn-gxhcltf medications to help with symptoms. Denies any other complaints at this time. Aside from symptoms as described above, patient has no other complaints at this time. Review of Systems Constitutional: Positive for fever. Negative for chills and malaise/fatigue. HENT: Positive for ear pain and sore throat. Negative for congestion, ear discharge and sinus pain. Respiratory: Negative for cough, shortness of breath and wheezing. Cardiovascular: Negative for chest pain. Gastrointestinal: Positive for nausea and vomiting. Negative for abdominal pain, constipation and diarrhea. Musculoskeletal: Negative for myalgias. Neurological: Negative for headaches. Endo/Heme/Allergies: Negative for environmental allergies. ALLERGIES No Known Allergies Current Outpatient Medications on File Prior to Visit Medication Sig acetaminophen (TYLENOL ORAL) Take by mouth as needed. cranberry fruit extract (CRANBERRY EXTRACT ORAL) Take by mouth. ferrous sulfate (IRON) 325 mg (65 mg iron) tablet Take 1 tablet by mouth two times a day. multivitamin (CLASSIC ) 28 mg iron- 800 mcg tab(s) Take 1 tablet by mouth once daily. No current facility-administered medications on file prior to visit. ACTIVE PROBLEM LIST History of Vphz-Lhbiq-Qyiqwcs Disease History of Gestational Diabetes Mellitus Forceps Or Vacuum Extractor Delivery Vaginal Bleeding Obesity Affecting in First Trimester Encounter for Supervision of High Risk in First Trimester, Antepartum M-Power Referred Social History Tobacco Use Smoking status: Never Passive exposure: Never Smokeless tobacco: Never Vaping Use Vaping Use: Never used Substance Use Topics Alcohol use: Not Currently Drug use: Never Objective BP 119/79 Pulse 95 Temp 36.7 ?C (98 ?F) (Oral) Resp 17 Wt 83.8 kg (184 lb 12.8 oz) LMP 04/01/2023 (Exact Date) SpO2 99% BMI 34.92 kg/m? Physical Exam Vitals and nursing note reviewed. Constitutional: General: She is awake. She is not in acute distress. Appearance: Normal appearance. She is well-developed and well-groomed. She is not ill-appearing, toxic-appearing or diaphoretic. HENT: Head: Normocephalic and atraumatic. Right Ear: Ear canal and external ear normal. A middle ear effusion is present. No mastoid tenderness. Tympanic membrane is bulging. Tympanic membrane is not injected or erythematous. Left Ear: Ear canal and external ear normal. A middle ear effusion is present. No mastoid tenderness. Tympanic membrane is injected and bulging. Tympanic membrane is not erythematous. Ears: Comments: Bilateral purulent drainage behind TM Nose: Right Sinus: No maxillary sinus tenderness or frontal sinus tenderness. Left Sinus: No maxillary sinus tenderness or frontal sinus tenderness. Mouth/Throat: Lips: [place]. Mouth: Mucous membranes are moist. No oral lesions. Pharynx: Oropharynx is clear. Posterior oropharyngeal erythema present. No oropharyngeal exudate. Tonsils: No tonsillar exudate or tonsillar abscesses. 1+ on the right. 1+ on the left. Eyes: Conjunctiva/sclera: Conjunctivae normal. Cardiovascular: Rate and Rhythm: Normal rate and regular rhythm. Heart sounds: Normal heart sounds. Pulmonary: Effort: Pulmonary effort is normal. No accessory muscle usage or respiratory distress. Breath sounds: Normal breath sounds and air entry. No decreased air movement. No wheezing. Abdominal: General: Abdomen is flat. Bowel sounds are normal. There is no distension. Palpations: Abdomen is soft. There is no mass. Tenderness: There is no abdominal tenderness. There is no guarding or rebound. Negative signs include Dickey's sign, Rovsing's sign and McBurney's sign. Hernia: No hernia is present. Musculoskeletal: General: Normal range of motion. Cervical back: Normal range of motion and neck supple. Lymphadenopathy: Head: Right side of head: No submandi (more content not included)... 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 During your visit today, we recorded the following information about you: Kt Abdalla, RN 06/07/2023 11:35 AM Signed 1st risk assessment form submitted 06/07/23 Kt Abdalla RN Allergies As of Date: 06/07/2023 (No Known Allergies) Date Reviewed: 06/06/2023 Reviewed by: Melony Pineda APRN.[facility] - Fully Assessed Reason for Visit: PRAF [4193] Prescriptions as of 06/07/2023 - acetaminophen (TYLENOL ORAL) Take by mouth as needed. - cranberry fruit extract (CRANBERRY EXTRACT ORAL) Take by mouth. - ferrous sulfate (IRON) 325 mg (65 mg iron) tablet Take 1 tablet by mouth two times a day. - multivitamin (CLASSIC ) 28 mg iron- 800 mcg tab(s) Take 1 tablet by mouth once daily. Problem List As Of Date 06/07/2023 Noted Resolved Nausea and vomiting during [O21.9] 11/13/2020 02/11/2023 History of Wgdj-Mwmwv-Ueuxjmo 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] 11/13/2020 Encounter for supervision of other normal pregn*11/14/2020 07/10/2021 Antepartum anemia in third trimester [O99.013] 11/21/2020 07/10/2021 Abnormal glucose complicating [O99.81*03/04/2021 03/16/2021 Diet controlled gestational diabetes mellitus (*03/16/2021 07/10/2021 History of gestational diabetes mellitus [Z86.3*07/10/2021 with uncertain dates in first trimest*01/07/2023 02/08/2023 Supervision of normal [Z34.90] 01/07/2023 02/11/2023 10 weeks gestation of [Z3A.10] 01/07/2023 02/08/2023 Heartburn during in first trimester [*01/07/2023 02/08/2023 Asthma during [O99.519, J45.909] 01/07/2023 02/11/2023 Forceps or vacuum extractor delivery [Z37.9] 01/07/2023 Obesity affecting in first trimester *01/07/2023 02/11/2023 Vaginal bleeding [N93.9] 02/23/2023 Obesity affecting in first trimester *06/06/2023 Encounter for supervision of high risk pregnanc*06/06/2023 M-Power Referred [O99.891] 06/06/2023 Encounter Status:Closed by KT ABDALLA on 06/07/23 Normal [facility] Bacteria Ur Culton Bacteria identified Cx Nom (U) ORGANISM ID: 1 10,000 -<50,000 CFU/ml Normal urogenital kleber Normal [facility] Comment on above: Performed By: #### 6 30-4 ####[facility] LABCLIA [id number] [place] [address] [place] C. trachomatis+N. gonorrhoea e DNA JOEL+probe Ql (Unsp spec)on 06-06-2023 C. trachomatis rRNA JOEL+probe Ql (Unsp spec) Negative Normal Negative for Chlamydia trachomatis by amplificaton [facility] Comment on above: Order Comment: Speci men Type: SWABOrdering Facility: [facility] Address: [address] [place] [address] Performed By: #### 3 6902-5 ####[facility] LABCLIA [id number] [place] [address] [place] N. gonorrhoeae rRNA JOEL+probe Ql (Unsp spec) Negative Normal Negative for Neisseria gonorrhoeae by amplification [facility] Comment on above: Order Comment: Speci men Type: SWABOrdering Facility: [facility] Address: [address] [place] [address] Performed By: #### 3 6902-5 ####[facility] LABIA [id number] [place] [address] [place] CBC panel Auto (Bld)on 06-05 Erythrocyte distribution width (RBC) [Ratio] 13.7 % 11.5 - 15.0 % [facility] Hematocrit (Bld) [Volume fraction] 37.5 % 36.0 - 46.0 % [facility] Hemoglobin (Bld) [Mass/Vol] 12.3 g/dL 11.5 - 15.5 g/dL [facility] Interpretation and review of laboratory results Normal [facility] MCH (RBC) [Entitic mass] 27.6 pg 26.0 - 34.0 pg [facility] MCHC (RBC) [Mass/Vol] 32.8 g/dL 30.5 - 36.0 g/dL [facility] MCV (RBC) [Entitic vol] 84.1 fL 80.0 - 100.0 fL [facility] Nucleated RBC (Bld) [#/Vol] NINF [facility] Platelet mean volume (Bld) [Entitic vol] 10.2 fL 9.0 - 12.7 fL [facility] Platelets (Bld) [#/Vol] 248 10*3/uL [facility] RBC (Bld) [#/Vol] 4.46 10*6/uL 3.90 - 5.2 0 m/uL [facility] WBC (Bld) [#/Vol] 7.25 10*3/uL [facility] Erythrocyte distribution width (RBC) [Ratio] 13.7 % Normal 11.5-15.0 [facility] Comment on above: Order Comment: Speci men Type: BLOOD SPECIMENOrdering Facility: [facility] Address: [address] [place] [address] Performed By: #### 5 8410-2 ####[facility] HOSPITALZEHRA [id number] [address] OF [facility] Hematocrit (Bld) [Volume fraction] 37.5 % Normal 36.0-46.0 [facility] Comment on above: Order Comment: Speci men Type: BLOOD SPECIMENOrdering Facility: [facility] Address: [address] [place] [address] Performed By: #### 5 8410-2 ####[facility] H[facility]PITALRADHA [id number] [address] [place] Hemoglobin (Bld) [Mass/Vol] 12.3 g/dL Normal 11.5-15.5 [facility] Comment on above: Order Comment: Speci men Type: BLOOD SPECIMENOrdering Facility: [facility] Address: [address] [place] [address] Performed By: #### 5 8410-2 ####[facility] HOSPITALASHVINA [id number] [address] [place] MCH (RBC) [Entitic mass] 27.6 pg Normal 26.0-34.0 [facility] Comment on above: Order Comment: Speci men Type: BLOOD SPECIMENOrdering Facility: [facility] Address: [address] [place] [address] Performed By: #### 5 8410-2 ####[facility]OSPITALNCSTELLA [id number] [place] [address] [place] MCHC (RBC) [Mass/Vol] 32.8 g/dL Normal 30.5-36.0 [facility] Comment on above: Order Comment: Speci men Type: BLOOD SPECIMENOrdering Facility: [facility] Address: [address] [place] [address] Performed By: #### 5 8410-2 ####[facility] HOSPITALNCSTELLA [id number] [place] [address] [place] MCV (RBC) [Entitic vol] 84.1 fL Normal 80.0-100.0 [facility] Comment on above: Order Comment: Speci men Type: BLOOD SPECIMENOrdering Facility: [facility] Address: [address] [place] [address] Performed By: #### 5 8410-2 ####[facility] HOSPITALNCLIA [id number] [place] [address] [place] Nucleated RBC (Bld) [#/Vol] 10*3/uL Normal <0.01 [facility] Comment on above: Order Comment: Speci men Type: BLOOD SPECIMENOrdering Facility: [facility] Address: [address] [place] [address] Performed By: #### 5 8410-2 ####[facility] HOSPITALNCLIA [id number] [place] [address] [place] Platelet mean volume (Bld) [Entitic vol] 10.2 fL Normal 9.0-12.7 [facility] Comment on above: Order Comment: Speci men Type: BLOOD SPECIMENOrdering Facility: [facility] Address: [address] [place] [address] Performed By: #### 5 8410-2 ####[facility] MISTY CHRISTENWNCLIA [id number] [place] [address] [place] Platelets (Bld) [#/Vol] 248 10*3/uL Normal 150-400 [facility] Comment on above: Order Comment: Speci men Type: BLOOD SPECIMENOrdering Facility: [facility] Address: [address] [place] [address] Performed By: #### 5 8410-2 ####[facility] HOSPITALNCLIA [id number] [place] [address] [place] RBC (Bld) [#/Vol] 4.46 10*6/uL Normal 3.90-5.20 [facility] Comment on above: Order Comment: Speci men Type: BLOOD SPECIMENOrdering Facility: [facility] Address: [address] [place] [address] Performed By: #### 5 8410-2 ####[facility] HOSPITALNCLIA [id number] [place] [address] [place] WBC (Bld) [#/Vol] 7.25 10*3/uL Normal 3.70-11.00 [facility] Comment on above: Order Comment: Speci men Type: BLOOD SPECIMENOrdering Facility: [facility] Address: [address] [place] [address] Performed By: #### 5 8410-2 ####[facility] H[facility]ITALNCLIA [id number] [place] [address] [place] HBV surface Ag Ql (S)on 05-09 Interpretation and review of laboratory results Normal [facility] HBV surface Ag Ser Qlon 05-09 HBV surface Ag Ql (S) Negative Normal Negative [facility] Comment on above: Order Comment: Speci men Type: BLOOD SPECIMENOrdering Facility: [facility] Address: [address] [place] [address] Performed By: #### 3 1201-7, 13309-0, 5195-3 ####[facility] LABCLIA [id number] [place] [address] [place] HCV Ab Ql (S)on 06-06-2023 Interpretation and review of laboratory results Normal [facility] HCV Ab Ser Qlon 06-06-2023 HCV Ab Ql (S) Negative Normal Negative [facility] Comment on above: Order Comment: Speci men Type: BLOOD SPECIMENOrdering Facility: [facility] Address: [address] [place] [address] Result Comment: The result suggests no evidence of active infection with Hepatitis C virus. Should recent infection be suspected, repeat testing may be considered 4-6 weeks after this draw. Performed By: #### 1 6128-1 ####[facility] LABCLIA [id number] [place] [address] [place] HEPATITIS B SURFACE ANTIGENo n 06-06-2023 HBV surface Ag Ql (S) Negative Negative [facility] HEPATITIS C ANTIBODY IA WITH CONFIRMATIONon 06-06-2023 HCV Ab Ql (S) Negative Negative [facility] Comment on above: The result suggests no evidence of active infection with Hepatitis C virus. Should recent infection be suspected, repeat testing may be considered 4-6 weeks after this draw. HIGH RISK HUMAN PAPILLOMA MANAS (HPV), PCR FOR DETECTION AND GENOTYPINGon 06-06-2023 HPV 16 Ag Ql (Unsp spec) Negative Normal Negative for HPV DNA high risk type 16 by PCR [facility] Comment on above: Order Comment: Speci men Type: FLUID SPECIMENOrdering Facility: [facility] Address: [address] [place] [address] Performed By: #### H PVHRT ####[facility] LABCLIA [id number] [place] [address] [place]#### [id number] ####[facility]ATORYCLIA [id number] [place] [address] [place] [facility] LABCLIA [id number] [place] [address] [place] HPV 18 Ag Ql (Unsp spec) Negative Normal Negative for HPV DNA high risk type 18 by PCR [facility] Comment on above: Order Comment: Speci men Type: FLUID SPECIMENOrdering Facility: [facility] Address: [address] [place] [address] Performed By: #### H PVHRT ####[facility] LABCLIA [id number] [place] [address] [place]#### [id number] ####[facility]ORATORYCLIA [id number] [place] [address] [place] [facility] LABCLIA [id number] [place] [address] [place] HPV 31+33+35+39+45+51+ 52+56+58+59+66+68 DNA JOEL+probe Ql (Cvx) Negative for HPV DNA high risk types: 31,33,35,39,45,51,52,56,58, 59,66,68 by PCR. Normal Negative for HPV DNA high risk types: 31,33,35,39,45 ,51,52,56,58,5 9,66,68 by PCR. [facility] Comment on above: Order Comment: Speci men Type: FLUID SPECIMENOrdering Facility: [facility] Address: [address] [place] [address] Performed By: #### H PVHRT ####[facility] LABCLIA [id number] [place] [address] [place]#### [id number] ####[facility]ORATORYCLIA [id number] [place] [address] [place] [facility] LABCLIA [id number] [place] [address] [place] HIV 1+2 Ab IA Qlon 4 HIV 1 and 2 Ab IA.rapid Nom (S/P/Bld) [facility] Comment on above: Test not indicated. HIV 1+2 Ab+HIV1 p24 Ag IA Ql Non-Reactive Nonreactive [facility] HIV immunoassay testing algorithm interpretation (S/P/Bld) [Interp] [facility] Comment on above: No evidence of HIV-1 or HIV-2 infection. Should recent infection be suspected, repeat testing may be considered 2-3 weeks after this draw. [place] Rev. Code 3701.243(E): This information has been disclosed to you from confidential records protected from disclosure by state law. You shall make no further disclosure of this information without the specific, written, and informed release of the individual to whom it pertains or as otherwise permitted by state law. A general authorization for the release of medical or other information is not sufficient for the purpose of the release of HIV test results or diagnoses. [facility] HIV 1 and 2 Ab IA.rapid Nom (S/P/Bld) Normal [facility] Comment on above: Order Comment: Speci men Type: BLOOD SPECIMENOrdering Facility: [facility] Address: [address] [place] [address] Result Comment: Test not indicated. Performed By: #### 3 1201-7, 59319-8, 5195-3 ####[facility] LABCLIA [id number] [place] [address] [place] HIV 1+2 Ab+HIV1 p24 Ag IA Ql Non-Reactive Normal Nonreactive [facility] Comment on above: Order Comment: Speci men Type: BLOOD SPECIMENOrdering Facility: [facility] Address: [address] [place] [address] Performed By: #### 3 1201-7, 20969-1, 5195-3 ####[facility] LABCLIA [id number] [place] [address] [place] HIV immunoassay testing algorithm interpretation (S/P/Bld) [Interp] Normal [facility] Comment on above: Order Comment: Speci men Type: BLOOD SPECIMENOrdering Facility: [facility] Address: [address] [place] [address] Result Comment: No e vidence of HIV-1 or HIV-2 infection. Should recent infection be suspected, repeat testing may be considered 2-3 weeks after this draw. [place] Rev. Code 3701.243(E): This information has been disclosed to you from confidential records protected from disclosure by state law. ???You shall make no further disclosure of this information without the specific, written, and informed release of the individual to whom it pertains or as otherwise permitted by state law. A general authorization for the release of medical or other information is not sufficient for the purpose of the release of HIV test results or diagnoses. Performed By: #### 3 1201-7, 51395-5, 5195-3 ####[facility] LABCLIA [id number] [place] [address] [place] HbA1c (Bld)on 06-06-2023 Average glucose Estimated from glycated hemoglobin (Bld) [Mass/Vol] 111 mg/dL [facility] Comment on above: eAG: (Estimated aver age glucose) is a calculated value from HgbA1c and is car sales representative of the average blood glucose level in the last 2-3 month period. HbA1c (Bld) [Mass fraction] 5.5 % 4.3 - 5.6 % [facility] Comment on above: [place] Diabetes [employer] sociation guidelines indicate that patients with HgbA1c in the range 5.7-6.4% are at increased risk for development of diabetes, and intervention by lifestyle modification may be beneficial. HgbA1c greater or equal to 6.5% is considered diagnostic of diabetes. [facility] Average glucose Estimated from glycated hemoglobin (Bld) [Mass/Vol] 111 mg/dL Normal [facility] Comment on above: Order Comment: Speci men Type: BLOOD SPECIMENOrdering Facility: [facility] Address: [address] [place] [address] Result Comment: eAG: (Estimated average glucose) is a calculated value from HgbA1c and is car sales representative of the average blood glucose level in the last 2-3 month period. Performed By: #### 5 5454-3 ####[facility] LABCLIA [id number] [place] [address] [place] HbA1c (Bld) [Mass fraction] 5.5 % Normal 4.3-5.6 [facility] Comment on above: Order Comment: Speci men Type: BLOOD SPECIMENOrdering Facility: [facility] Address: [address] [place] [address] Result Comment: [place] Diabetes Association guidelines indicate that patients with HgbA1c in the range 5.7-6.4% are at increased risk for development of diabetes, and intervention by lifestyle modification may be beneficial. HgbA1c greater or equal to 6.5% is considered diagnostic of diabetes. Performed By: #### 5 5454-3 ####[facility] LABCLIA [id number] [place] [address] [place] PAP TESTon 06-06-2023 ADEQUACY Satisfactory for interpretation. Normal [facility] Comment on above: Order Comment: Speci men Type: FLUID SPECIMENOrdering Facility: [facility] Address: [address] [place] [address] Performed By: #### H PVHRT ####[facility] LABCLIA [id number] [place] [address] [place]#### [id number] ####[facility]ORATORYCLIA [id number] [place] [address] [place] [facility] LABCLIA [id number] [address] [place] CASE REPORT Normal [facility] Comment on above: Order Comment: Speci men Type: FLUID SPECIMENOrdering Facility: [facility] Address: [address] [place] [address] Result Comment: Gyne cologic Cytology Report Case: [id number] Authorizing Provider: Melony Pineda APRN.CNM Collected: 06/06/2023 09:48 AM Ordering Location: OB/Gynecology Received: 06/06/2023 12:41 PM First Screen: Jacinta Arrieta, [place], ASCP Pathologist: Daniel Snowden MD Specimen: Pap Test, ThinPrep, Cervix Performed By: #### H PVHRT ####[facility] LABCLIA [id number] [place] [address] [place]#### [id number] ####[facility] LABORATORYCLIA [id number] [address] LABCLIA [id number] [place] [address] [place] CLINICAL HISTORY, CYTOLOGY, SLOT OPERATIONS MANAGER Routine Exam Normal [facility] Comment on above: Order Comment: Speci men Type: FLUID SPECIMENOrdering Facility: [facility] Address: [address] [place] [address] Performed By: #### H PVHRT ####[facility] LABCLIA [id number] [place] [address] [place]#### [id number] ####[facility] LABORATORYCLIA [id number] [address] LABCLIA [id number] [address] [place] FINAL PERFORMING LAB Normal [facility] Comment on above: Order Comment: Speci men Type: FLUID SPECIMENOrdering Facility: [facility] Address: [address] [place] [address] Result Comment: Tech nical component, housing quality standard inspector screening performed at [facility], [address] [place] [address] CLIA# [id number] Diagnostic interpretation performed at [facility], [address] [place] [address] CLIA# [id number] Thermite Bomb Loader: Ying Foote M.D. Performed By: #### H PVHRT ####[facility] LABCLIA [id number] [place] [address] [place]#### [id number] ####[facility]ATORYCLIA [id number] [place] [address] [place] [facility] LABCLIA [id number] [place] [address] [place] HPV REFLEX Yes HPV Normal [facility] Comment on above: Order Comment: Speci men Type: FLUID SPECIMENOrdering Facility: [facility] Address: [address] [place] [address] Performed By: #### H PVHRT ####[facility] LABCLIA [id number] [place] [address] [place]#### [id number] ####[facility] HOSPITALCLIA [id number] [address] STATES [facility] LABCLIA [id number] [place] [address] [place] INTERPRETATION, CYTOLOGY, SLOT OPERATIONS MANAGER Abnormal [facility] Comment on above: Order Comment: Speci men Type: FLUID SPECIMENOrdering Facility: [facility] Address: [address] [place] [address] Result Comment: Epit helial cell abnormality. Atypical squamous cells of undetermined significance (ASC-US). Performed By: #### H PVHRT ####[facility] LABCLIA [id number] [place] [address] [place]#### [id number] ####[facility]ORYCLIA [id number] [place] [address] [place] [facility] LABCLIA [id number] [place] [address] [place] LMP 04/01/2023 Normal [facility] Comment on above: Order Comment: Speci men Type: FLUID SPECIMENOrdering Facility: [facility] Address: [address] [place], [place] [address] Performed By: #### H PVHRT ####[facility] LABCLIA [id number] [place] [address] [place]#### [id number] ####[facility] LABORATORYCLIA [id number] [place] [address] [place] [facility] LABCLIA [id number] [place] [address] [place] PAP DISCLAIMER COMMENT The Pap Smear is a screening test for cervical cancer. False negative results occur with all screening tests, emphasizing the need for rescreening at recommended intervals, and clinical correlation. Normal [facility] Comment on above: Order Comment: Speci men Type: FLUID SPECIMENOrdering Facility: [facility] Address: [address] [place] [address] Performed By: #### H PVHRT ####[facility] LABCLIA [id number] [place] [address] [place]#### [id number] ####[facility] LABORATORYCLIA [id number] [place] [address] [place] [facility] LABCLIA [id number] [place] [address] [place] PAP GENERAL CATEGORIZATION Epithelial Cell Abnormality Normal [facility] Comment on above: Order Comment: Speci men Type: FLUID SPECIMENOrdering Facility: [facility] Address: [address] [place], [place] [address] Performed By: #### H PVHRT ####[facility] LABCLIA [id number] [place] [address] [place]#### [id number] ####[facility] LABORATORYCLIA [id number] [place] [address] [place] [facility] LABCLIA [id number] [address] STATES [facility] PAP TANNING WHEEL OPERATOR COMMENT This specimen has be en analyzed by the ThinPrep Imaging System, an automated imaging and review system, which assists the laboratory in evaluating cells on ThinPrep Pap tests. Following automated imaging, selected quiroz from every slide are reviewed by a housing quality standard inspector. Normal [facility] Comment on above: Order Comment: Speci men Type: FLUID SPECIMENOrdering Facility: [facility] Address: [address] [place] [address] Performed By: #### H PVHRT ####[facility] LABCLIA [id number] [address] [place]#### [id number] ####[facility] HOSPITALCLIA [id number] [address] LABCLIA [id number] [address] [place] RUBELLA IGG ANTIBODYon 06-05 Interpretation and review of laboratory results Normal [facility] Rubella IgG, Qual Positive Positive [facility] Comment on above: The result suggests recent or past exposure to Rubella virus or history of Rubella vaccination. Positive result may also be seen due to presence of passively-transferred antibodies. Please correlate with patient's history. [facility] RUBELLA IGG AB, QUAL Positive Normal Positive [facility] Comment on above: Order Comment: Speci men Type: BLOOD SPECIMENOrdering Facility: [facility] Address: [address] [place] [address] Result Comment: The result suggests recent or past exposure to Rubella virus or history of Rubella vaccination. Positive result may also be seen due to presence of passively-transferred antibodies. Please correlate with patient's history. Performed By: #### R UBIGG ####[facility] LABCLIA [id number] [place] [address] [place] Reagin and Treponema pallidu m IgG and IgM [Interp]on 06-06-2023 T. pallidum IgG+IgM IA Ql (S) Non-Reactive Nonreactive [facility] T. pallidum IgG+IgM IA Ql (S) Non-Reactive Normal Nonreactive [facility] Comment on above: Order Comment: Speci men Type: BLOOD SPECIMENOrdering Facility: [facility] Address: [address] [place] [address] Performed By: #### 3 1201-7, 60014-8, 5195-3 ####[facility] LABCLIA [id number] [place] [address] [place] Reagin+T pallidum IgG+IgM Se rPl-Impon 06-06-2023 Reagin and Treponema pallidum IgG and IgM [Interp] Cannot exclude recent Treponemal infection if specimen collected within 7-10 days after appearance of suspect lesions or 2-3 weeks after an exposure. Clinical correlation is required. Normal [facility] Comment on above: Order Comment: Speci men Type: BLOOD SPECIMENOrdering Facility: [facility] Address: [address] [place] [address] Performed By: #### 3 1201-7, 02736-9, 5195-3 ####[facility] LABCLIA [id number] [place] [address] [place] SYPHILIS TOTAL W/REFLEXon Reagin and Treponema pallidum IgG and IgM [Interp] Cannot exclude recent Treponemal infection if specimen collected within 7-10 days after appearance of suspect lesions or 2-3 weeks after an exposure. Clinical correlation is required. [facility] TYPE + SCREEN PRENATALon ABO A Normal [facility] Comment on above: Order Comment: Speci men Type: BLOOD SPECIMENOrdering Facility: [facility] Address: [address] [place] [address] Performed By: #### T SPN ####[facility] BLOOD BANKCLIA [id number] [place] [address] [place] HISTORICAL AB SCR STATUS Negative Normal [facility] Comment on above: Order Comment: Speci men Type: BLOOD SPECIMENOrdering Facility: [facility] Address: [address] [place] [address] Performed By: #### T SPN ####[facility] BLOOD BANKCLIA [id number] [address] [place] Rh Nom (Bld) Positive Normal [facility] Comment on above: Order Comment: Speci men Type: BLOOD SPECIMENOrdering Facility: [facility] Address: [address] [place] [address] Performed By: #### T SPN ####[facility] BLOOD BANKCLIA [id number] [address] OF [facility] TYPE AND SCREEN EXPIRATION 06/09/2023 23:59 Normal [facility] Comment on above: Order Comment: Speci men Type: BLOOD SPECIMENOrdering Facility: [facility] Address: [address] [place] [address] Performed By: #### T SPN ####[facility] BLOOD BANKCLIA [id number] [address] [place] CNPNon 06-02-2023 CNPN Telephone (OBGYWM) CHELI OSMAN ([id number]) 1995 F [facility] Date Time Provider Department 06/02/23 MELONY PINEDA OBGYWMulugeta During your visit today, we recorded the following information about you: Sanchez Mustafa, JARETH 06/02/2023 9:36 AM Addendum Patient had telephone OB intake today. Her last menstrual period was April 01 making her 8 weeks and 6 days. She has had spotting on and off for 2 to 3 weeks that has been dark brown in color. She has noted cramping that she rates a 1 on the pain scale. She has an appointment on Tuesday for a new OB. Patient is comfortable with waiting until her appointment on Tuesday to be evaluated. Miscarriage precautions given. Patient is to call/come in if she develops any increase in her bleeding or pain or as needed problems. Call only if further advice. Harrison Cam MD 06/02/2023 2:32 PM Signed Noted Harrison Cam MD Allergies As of Date: 06/02/2023 (No Known Allergies) Date Reviewed: 04/03/2023 Reviewed by: Arelis Tapia PA-C - Fully Assessed Reason for Visit: Appointment [186] bleeding in [Other] Prescriptions as of 06/02/2023 - cranberry fruit extract (CRANBERRY EXTRACT ORAL) Take by mouth. - predniSONE (DELTASONE) 10 mg tablet Take 1 tablet by mouth once daily. TAKE 40 MG (4tabs) FOR TWO DAYS, THEN 20 MG (2tabs) FOR TWO DAYS, THEN 10 MG (1tab) FOR TWO DAYS - Brxvfwemplmxzmi-Nwxzuxwmr-F M (BROMFED DM) 2-30-10 mg/5 mL syrup Take 10 mL by mouth four times a day as needed. - ferrous sulfate (IRON) 325 mg (65 mg iron) tablet Take 1 tablet by mouth two times a day. - multivitamin (CLASSIC ) 28 mg iron- 800 mcg tab(s) Take 1 tablet by mouth once daily. 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] 11/13/2020 Encounter for supervision of other normal pregn*11/14/2020 07/10/2021 Antepartum anemia in third trimester [O99.013] 11/21/2020 07/10/2021 Abnormal glucose complicating [O99.81*03/04/2021 03/16/2021 Diet controlled gestational diabetes mellitus (*03/16/2021 07/10/2021 History of gestational diabetes [Z86.32] 07/10/2021 02/11/2023 with uncertain dates in first trimest*01/07/2023 02/08/2023 Supervision of normal [Z34.90] 01/07/2023 02/11/2023 10 weeks gestation of [Z3A.10] 01/07/2023 02/08/2023 Heartburn during in first trimester [*01/07/2023 02/08/2023 Asthma during [O99.519, J45.909] 01/07/2023 02/11/2023 Forceps or vacuum extractor delivery [Z37.9] 01/07/2023 02/11/2023 Obesity affecting in first trimester *01/07/2023 02/11/2023 Vaginal bleeding [N93.9] 02/23/2023 Encounter Status:Closed by LAISHA MARSH on 06/02/23 Normal [facility] CNOVon 04-03-2023 CNOV Office Visit ([facility] ) CHELI OSMAN ([id number]) 1995 F [facility] Date Time Provider Department 04/03/23 12:30 PM ARELIS TAPIA [facility] During your visit today, we recorded the following information about you: Temperature Pulse Respiration Blood pressure 97.6 degrees 101/minute 18/minute 123/83 Weight Last Period 84.7 kg 04/03/23 Arelis Tapia PA-C 04/03/2023 2:33 PM Signed Rest, hydration, zonc-iyb-ysfyehl immune support Arelis Tapia PA-C 04/03/2023 2:36 PM Signed This note was created using [employer]. Subjective Cheli Osman is a 28 year old female senting with a couple week history of respiratory symptoms. She states that seemed like it was, getting better and then worsened over the last few days she has productive cough now and complains of sinus congestion/pressure/pain.. Review of Systems All other systems reviewed and are negative. Objective BP 123/83 Pulse 101 Temp 36.4 ?C (97.6 ?F) (Temporal) Resp 18 Wt 84.7 kg (186 lb 12.8 oz) LMP 04/03/2023 (Exact Date) SpO2 99% BMI 35.30 kg/m? Physical Exam Vitals and nursing note reviewed. Constitutional: General: She is not in acute distress. Appearance: Normal appearance. She is not ill-appearing or toxic-appearing. HENT: Head: Normocephalic and atraumatic. Comments: Pain to palpation over maxillary sinus Right Ear: Tympanic membrane normal. Left Ear: Tympanic membrane normal. Nose: Nose normal. Mouth/Throat: Mouth: Mucous membranes are moist. Pharynx: Oropharynx is clear. Eyes: Conjunctiva/sclera: Conjunctivae normal. Pupils: Pupils are equal, round, and reactive to light. Cardiovascular: Rate and Rhythm: Normal rate and regular rhythm. Heart sounds: Normal heart sounds. Pulmonary: Effort: Pulmonary effort is normal. No respiratory distress. Breath sounds: No wheezing or rales. Comments: Coarse breath sounds throughout all lung quiroz Abdominal: General: Abdomen is flat. Bowel sounds are normal. Palpations: Abdomen is soft. Musculoskeletal: Cervical back: Normal range of motion. No rigidity. Lymphadenopathy: Cervical: No cervical adenopathy. Skin: General: Skin is warm and dry. Neurological: Mental Status: She is alert. Psychiatric: Mood and Affect: Mood normal. Thought Content: Thought content normal. Judgment: Judgment normal. Assessment and Plan Problem List Items Addressed This Visit None Visit Diagnoses Sinobronchitis - Primary Relevant Medications amoxicillin (AMOXIL) 875 mg tablet Clinical impression is acute URI with now secondary inflammation in the sinus and bronchus. Prescribed amoxicillin and instructed on supportive care and follow-up. Patient is agreeable above plan of care. Arelis Tapia PA-C Referring Provider: SELF [200] Allergies As of Date: 04/03/2023 (No Known Allergies) Date Reviewed: 04/03/2023 Reviewed by: Arelis Tapia PA-C - Fully Assessed Reason for Visit: Cough [28] Cmt: Worse for 3 days sinus congestion [Other] Chest Congestion [236] Headache [52] Primary Visit Diagnosis:Sinobronchitis [J32.9, J40] Order(s):amoxicillin (AMOXIL) 875 mg tabletTake 1 tablet by mouth every 12 hours for 10 days.Disp: 20 tabletRfl: 0 Prescriptions as of 04/03/2023 - amoxicillin (AMOXIL) 875 mg tablet Take 1 tablet by mouth every 12 hours for 10 days. - predniSONE (DELTASONE) 10 mg tablet Take 1 tablet by mouth once daily. TAKE 40 MG (4tabs) FOR TWO DAYS, THEN 20 MG (2tabs) FOR TWO DAYS, THEN 10 MG (1tab) FOR TWO DAYS - Quskrnaqvndyjwa-Slqbrgzym-M M (BROMFED DM) 2-30-10 mg/5 mL syrup Take 10 mL by mouth four times a day as needed. - ferrous sulfate (IRON) 325 mg (65 mg iron) tablet Take 1 tablet by mouth two times a day. - multivitamin (CLASSIC ) 28 mg iron- 800 mcg tab(s) Take 1 tablet by mouth once daily. Problem List As Of Date 04/03/2023 Noted Resolved Nausea and vomiting during [O21.9] 11/13/2020 02/11/2023 History of Vzpa-Ulrdi-Xuyvzwv 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] 11/13/2020 Encounter for supervision of other normal pregn*11/14/2020 07/10/2021 Antepartum anemia in third trimester [O99.013] 11/21/2020 07/10/2021 Abnormal glucose complicating [O99.81*03/04/2021 03/16/2021 Diet controlled gestational diabetes mellitus (*03/16/2021 07/10/2021 History of gestational diabetes [Z86.32] 07/10/2021 02/11/2023 with uncertain dates in first trimest*01/07/2023 02/08/2023 Supervision of normal [Z34.90] 01/07/2023 02/11/2023 10 weeks gestation of [Z3A.10] 01/07/2023 02/08/2023 Heartburn during in first trimester [*01/07/2023 02/08/2023 Asthma during [O99.519, J45.909] 01/07/2023 02/11/2023 Forceps or vacuum extractor delivery [Z37.9] 01/07/2023 02/11/2023 Obesity affecting in first trimester *01/07/2023 02/11/2023 Vaginal bleeding [N93.9] 02/23/2023 (more content not included)... [facility] CNOVon 03-29-2023 [facility] Office Visit ([facility] ) CHELI OSMAN ([id number]) 1995 F [facility] Date Time Provider Department 03/29/23 9:35 AM HORACE TORRES [facility] During your visit today, we recorded the following information about you: Temperature Pulse Respiration Blood pressure 98.3 degrees 63/minute 19/minute 109/74 Weight 83.9 kg Horace Torres PA-C 03/29/2023 9:40 AM Signed Start the prednisone taper. Take 40 mg once daily for the first 2 days, 20 mg once daily for the next 2 days, and 10 mg for remaining 2 days. You can take Benadryl at night for the itching and a nonsedating antihistamine such as Zyrtec during the day Make sure keeping skin dry and moist Prompt reevaluation with worsening of symptoms PATIENT INSTRUCTIONS - RASH What is dermatitis? -- Dermatitis is a type of skin rash that can happen after your skin touches something that irritates it or something you are allergic to. Things that irritate the skin can be found in products you use every day, such as soaps or cleansers. Some of the things that can cause skin allergies include: ?Certain medicines, perfumes, or cosmetics ?The metal in some kinds of jewelry ?Plants, such as poison magdalena and poison oak Sometimes you can develop a rash the first time you touch something. But it is also possible to get a rash from something you have used before without any problems. What other symptoms should I watch for? -- If you have a rash, your skin might be red, dry, itchy, or cracked. If your rash is caused by an allergy, you might also have some swelling or blisters where you have the rash. Severe symptoms include: ?Pain ?Widespread swelling ?Large blisters, oozing, or crusting of the skin What can I do to get rid of my dermatitis? -- You can: ?Avoid using or touching whatever might have caused your rash ?Protect your skin from anything that might irritate it or cause an allergy. For example, wear gloves if you need to work with harsh soaps. ?Try using soothing skin products to help with the itching and discomfort. Things that might help include: Unscented, thick moisturizing cream A special kind of bath called an oatmeal bath Should I see a doctor or nurse? -- See your doctor or nurse if your rash does not go away within 2 weeks, or if it gets worse. Your doctor can help figure out what could be causing your rash. How are skin rashes treated? -- Your doctor might prescribe different treatments or medicines to help your rash. These can include: ?Steroid creams and ointments - These are not the same as the steroids some athletes take illegally. They go on the skin, and they relieve itching and redness. ?Steroid pills - You might need to take these for a short time if your rash is severe. But your doctor or nurse will want to take you off steroid pills as soon as possible. Even though these medicines help, they can also cause problems of their own. ?Wet or damp dressings - These can be helpful for skin that is crusting or oozing. To use a wet or damp dressing, you will need to wear 2 layers of clothing. First, you put on a layer of damp cotton clothes over your rash. Then, you put on a layer of dry clothes on top of the damp ones. People who need these dressings often wear them at night when they sleep. INFORMATION FROM UP TO DATE - ALL RIGHTS RESERVED Horace Torres PA-C 03/29/2023 9:51 AM Signed This is a healthy 28-year-old female who presents with an itchy rash on the inside of both arms and on her abdomen. She states it started 5 days ago. She is not aware of any new exposures including detergents, soaps, lotions, medications, cosmetics, foods, etc. She states it is itchy and irritating. She has tried taking Zyrtec. No current acute illnesses, she recently did get over URI-like symptoms about a week ago. Denies any fevers, chills, dizziness, difficulty swallowing or breathing, swelling to lips of the tongue, chest pain, shortness of breath, vomiting or diarrhea. The history is provided by the patient. Rash Pertinent negatives include no fever or shortness of breath. PAST MEDICAL HISTORY Diagnosis Date Antepartum anemia complicating in first trimester 11/21/2020 Asthma childhood -no attacks since age 9 Diet controlled gestational diabetes mellitus (GDM) in third trimester 03/16/2021 Vgye-Epvby-Dymuwya disease Current Outpatient Medications Medication Sig Dispense Refill multivitamin (CLASSIC ) 28 mg iron- 800 mcg tab(s) Take 1 tablet by mouth once daily. predniSONE (DELTASONE) 10 mg tablet Take 1 tablet by mouth once daily. TAKE 40 MG (4tabs) FOR TWO DAYS, THEN 20 MG (2tabs) FOR TWO DAYS, THEN 10 MG (1tab) FOR TWO DAYS 14 tablet 0 Dreinqlppkidwui-Nexeszbbh-C M (BROMFED DM) 2-30-10 mg/5 mL syrup Take 10 mL by mouth four times a day as needed. (Patient not taking: Reported on 03/29/2023) 118 mL (more content not included)... [facility] ) CHELI OSMAN ([id number]) 1995 F [facility] Date Time Provider Department 03/19/23 12:10 PM KINGA RAMSAY [facility] During your visit today, we recorded the following information about you: Temperature Pulse Respiration Blood pressure 98.1 degrees 89/minute 20/minute 109/71 Weight 84.6 kg Kinga Ramsay MD 03/19/2023 12:44 PM Signed Cheli Albertoey is a 28 year old female who presents with Sore Throat (Sneezing coughing, pain with swallowing, hx of strep, unproductive cough, duration 2 days, no interventions ) HPI patient is a 28-year-old female who present to the [facility] this afternoon with complaint of nasal congestion, postnasal drainage, sneezing, sore throat, painful with swallowing and nonproductive cough, the symptoms started 2 days ago and patient tried wjos-fle-apuomvm medication without relief and due to concern patient here for further evaluation and treatment. PAST MEDICAL HISTORY Diagnosis Date Antepartum anemia complicating in first trimester 11/21/2020 Asthma childhood -no attacks since age 9 Diet controlled gestational diabetes mellitus (GDM) in third trimester 03/16/2021 Soml-Zfrnv-Qjeyspf disease ACTIVE PROBLEM LIST History of Nioi-Gdwwh-Rlyztha Disease Vaginal Bleeding Current Outpatient Medications Medication Sig Dispense Refill ferrous sulfate (IRON) 325 mg (65 mg iron) tablet Take 1 tablet by mouth two times a day. 30 tablet 3 multivitamin (CLASSIC ) 28 mg iron- 800 mcg tab(s) Take 1 tablet by mouth once daily. No current facility-administered medications for this visit. Medications were reviewed and verified. Social History Tobacco Use Smoking status: Never [...] Grandfather Review of Systems Constitutional: Negative for chills, fever and malaise/fatigue. HENT: Positive for congestion and sore throat. Negative for ear pain, nosebleeds, sinus pain and tinnitus. Eyes: Negative for blurred vision and pain. Respiratory: Positive for cough. Negative for sputum production, shortness of breath and wheezing. Cardiovascular: Negative for chest pain and palpitations. Gastrointestinal: Negative for nausea and vomiting. Musculoskeletal: Negative for myalgias. Skin: Negative for rash. Neurological: Negative for dizziness. BP 109/71 Pulse 89 Temp 98.1 Resp 20 Wt 186 lb 6.4 oz (84.6kg) SpO2 99% LMP 10/29/2022 Physical Exam Vitals and nursing note reviewed. Constitutional: General: She is not in acute distress. Appearance: Normal appearance. HENT: Right Ear: Tympanic membrane and ear canal normal. Left Ear: Tympanic membrane and ear canal normal. Nose: Congestion present. No rhinorrhea. Mouth/Throat: Mouth: Mucous membranes are moist. Pharynx: No oropharyngeal exudate or posterior oropharyngeal erythema. Eyes: Extraocular Movements: Extraocular movements intact. Conjunctiva/sclera: Conjunctivae normal. Pupils: Pupils are equal, round, and reactive to light. Cardiovascular: Rate and Rhythm: Normal rate and regular rhythm. Pulses: Normal pulses. Heart sounds: Normal heart sounds. Pulmonary: Breath sounds: Normal breath sounds. No wheezing or rales. Musculoskeletal: Cervical back: Normal range of motion and neck supple. Lymphadenopathy: Cervical: No cervical adenopathy. Skin: General: Skin is warm and dry. Findings: No rash. Psychiatric: Mood and Affect: Mood normal. ASSESSMENT/PLAN: 1. URI with cough and congestion - ICD9: 465.9, ICD10: J06.9 - Discussed viral etiology and rationale for treatment. - Symptomatic treatment with prn analgesia, Bromfed DM - Supportive care with fluids and rest - The patient may also use warm salt water gargles, throat lozenges and/or OTC throat spray as needed. - Follow up with primary care physician in 3-5 days if symptoms persist or sooner if worsening of symptoms - BROMPHENIRAMINE-PSEUDOEPHED RINE-DM 2 MG-30 MG-10 MG/5 ML ORAL SYRUP Kinga Ramsay MD Allergies As of Date: 03/19/2023 (No Known Allergies) Date Reviewed: 03/19/2023 Reviewed by: Kinga Ramsay MD - Fully Assessed Reason for Visit: Sore Throat [200] Cmt: Sneezing coughing, pain with swallowing, hx of strep, unproductive cough, duration 2 days, no interventions Primary Visit Diagnosis:URI with cough and congestion [J06.9] Order(s):Brompheniramine-Ps eud (more content not included)... Normal [facility] CBC W Auto Differential pane l (Bld)on 03-09-2023 Basophils (Bld) [#/Vol] 0.04 10*3/uL Normal <0.11 [facility] Comment on above: Order Comment: Speci men Type: BLOOD SPECIMENOrdering Facility: [facility] Address: [address] [place] [address] Performed By: #### 5 7021-8 ####[facility] MISTY MILLTOWNCLIA [id number] [place] [address] [place] Basophils/100 WBC (Bld) 0.6 % Normal [facility] Comment on above: Order Comment: Speci men Type: BLOOD SPECIMENOrdering Facility: [facility] Address: [address] [place] [address] Performed By: #### 5 7021-8 ####[facility] HOSPITALWNCLIA [id number] [place] [address] [place] Differential cell count method Nom (Bld) Auto Normal [facility] Comment on above: Order Comment: Speci men Type: BLOOD SPECIMENOrdering Facility: [facility] Address: [address] [place] [address] Performed By: #### 5 7021-8 ####[facility] HOSPITALWNCLIA [id number] [place] [address] [place] Eosinophils (Bld) [#/Vol] 0.21 10*3/uL Normal <0.46 [facility] Comment on above: Order Comment: Speci men Type: BLOOD SPECIMENOrdering Facility: [facility] Address: [address] [place] [address] Performed By: #### 5 7021-8 ####[facility] MILLTOWNCLIA [id number] [place] [address] [place] Eosinophils/100 WBC (Bld) 3.3 % Normal [facility] Comment on above: Order Comment: Speci men Type: BLOOD SPECIMENOrdering Facility: [facility] Address: [address] [place] [address] Performed By: #### 5 7021-8 ####[facility] [id number] [place] [address] [place] Erythrocyte distribution width (RBC) [Ratio] 13.6 % Normal 11.5-15.0 [facility] Comment on above: Order Comment: Speci men Type: BLOOD SPECIMENOrdering Facility: [facility] Address: [address] [place] [address] Performed By: #### 5 7021-8 ####[facility] [id number] [place] [address] [place] Hematocrit (Bld) [Volume fraction] 37.2 % Normal 36.0-46.0 [facility] Comment on above: Order Comment: Speci men Type: BLOOD SPECIMENOrdering Facility: [facility] Address: [address] [place] [address] Performed By: #### 5 7021-8 ####[facility] [id number] [place] [address] [place] Hemoglobin (Bld) [Mass/Vol] 12.0 g/dL Normal 11.5-15.5 [facility] Comment on above: Order Comment: Speci men Type: BLOOD SPECIMENOrdering Facility: [facility] Address: [address] [place] [address] Performed By: #### 5 7021-8 ####[facility] [id number] [place] [address] [place] Immature granulocytes (Bld) [#/Vol] 10*3/uL Normal <0.10 [facility] Comment on above: Order Comment: Speci men Type: BLOOD SPECIMENOrdering Facility: [facility] Address: [address] [place] [address] Performed By: #### 5 7021-8 ####[facility] [id number] [place] [address] [place] Immature granulocytes/100 WBC (Bld) 0.2 % Normal [facility] Comment on above: Order Comment: Speci men Type: BLOOD SPECIMENOrdering Facility: [facility] Address: [address] [place] [address] Performed By: #### 5 7021-8 ####[facility] [id number] [place] [address] [place] Lymphocytes (Bld) [#/Vol] 2.39 10*3/uL Normal 1.00-4.00 [facility] Comment on above: Order Comment: Speci men Type: BLOOD SPECIMENOrdering Facility: [facility] Address: [address] [place] [address] Performed By: #### 5 7021-8 ####[facility] [id number] [place] [address] [place] Lymphocytes/100 WBC (Bld) 37.8 % Normal [facility] Comment on above: Order Comment: Speci men Type: BLOOD SPECIMENOrdering Facility: [facility] Address: [address] [place] [address] Performed By: #### 5 7021-8 ####[facility] [id number] [place] [address] [place] MCH (RBC) [Entitic mass] 28.8 pg Normal 26.0-34.0 [facility] Comment on above: Order Comment: Speci men Type: BLOOD SPECIMENOrdering Facility: [facility] Address: [address] [place] [address] Performed By: #### 5 7021-8 ####[facility] [id number] [place] [address] [place] MCHC (RBC) [Mass/Vol] 32.3 g/dL Normal 30.5-36.0 [facility] Comment on above: Order Comment: Speci men Type: BLOOD SPECIMENOrdering Facility: [facility] Address: [address] [place] [address] Performed By: #### 5 7021-8 ####[facility] SUNIDELTANCKYEA [id number] [place] [address] [place] [facility] MCV (RBC) [Entitic vol] 89.2 fL Normal 80.0-100.0 [facility] Comment on above: Order Comment: Speci men Type: BLOOD SPECIMENOrdering Facility: [facility] Address: [address] [place] [address] Performed By: #### 5 7021-8 ####[facility]OSPITALNCA [id number] [place] [address] [place] Monocytes (Bld) [#/Vol] 0.31 10*3/uL Normal <0.87 [facility] Comment on above: Order Comment: Speci men Type: BLOOD SPECIMENOrdering Facility: [facility] Address: [address] [place] [address] Performed By: #### 5 7021-8 ####[facility]OSPITALNCA [id number] [place] [address] [place] Monocytes/100 WBC (Bld) 4.9 % Normal [facility] Comment on above: Order Comment: Speci men Type: BLOOD SPECIMENOrdering Facility: [facility] Address: [address] [place] [address] Performed By: #### 5 7021-8 ####[facility]ITALNCLIA [id number] [place] [address] [place] Neutrophils (Bld) [#/Vol] 3.37 10*3/uL Normal 1.45-7.50 [facility] Comment on above: Order Comment: Speci men Type: BLOOD SPECIMENOrdering Facility: [facility] Address: [address] [place] [address] Performed By: #### 5 7021-8 ####[facility]PITALL[facility] [id number] [place] [address] [place] Neutrophils/100 WBC (Bld) 53.2 % Normal [facility] Comment on above: Order Comment: Speci men Type: BLOOD SPECIMENOrdering Facility: [facility] Address: [address] [place] [address] Performed By: #### 5 7021-8 ####[facility] SUNIDELTAZEHRA [id number] [place] [address] [place] Nucleated RBC (Bld) [#/Vol] 10*3/uL Normal <0.01 [facility] Comment on above: Order Comment: Speci men Type: BLOOD SPECIMENOrdering Facility: [facility] Address: [address] [place] [address] Performed By: #### 5 7021-8 ####[facility] [id number] [place] [address] [place] Nucleated RBC/100 WBC (Bld) [Ratio] 0.0 /100 WBC Normal [facility] Comment on above: Order Comment: Speci men Type: BLOOD SPECIMENOrdering Facility: [facility] Address: [address] [place] [address] Performed By: #### 5 7021-8 ####[facility] HOSPITALZEHRA [id number] [place] [address] [place] Platelet mean volume (Bld) [Entitic vol] 10.1 fL Normal 9.0-12.7 [facility] Comment on above: Order Comment: Speci men Type: BLOOD SPECIMENOrdering Facility: [facility] Address: [address] [place] [address] Performed By: #### 5 7021-8 ####[facility]ITALNCLIA [id number] [place] [address] [place] Platelets (Bld) [#/Vol] 267 10*3/uL Normal 150-400 [facility] Comment on above: Order Comment: Speci men Type: BLOOD SPECIMENOrdering Facility: [facility] Address: [address] [place] [address] Performed By: #### 5 7021-8 ####[facility]ITALNCLIA [id number] [place] [address] [place] RBC (Bld) [#/Vol] 4.17 10*6/uL Normal 3.90-5.20 [facility] Comment on above: Order Comment: Speci men Type: BLOOD SPECIMENOrdering Facility: [facility] Address: [address] [place] [address] Performed By: #### 5 7021-8 ####[facility] [id number] [place] [address] [place] WBC (Bld) [#/Vol] 6.33 10*3/uL Normal 3.70-11.00 [facility] Comment on above: Order Comment: Speci men Type: BLOOD SPECIMENOrdering Facility: [facility] Address: [address] [place] [address] Performed By: #### 5 7021-8 ####[facility]CLIA [id number] [place] [address] [place] CNOVon 03-09-2023 CNOV Office Visit (OBGYWM ) CHELI OSMAN ([id number]) 1995 F [facility] Date Time Provider Department 03/09/23 10:30 AM EFRAIN MONTES DE OCA OBDUY During your visit today, we recorded the following information about you: Blood pressure Weight Last Period 82.6 kg 10/29/22 Efrain Montes De Oca MD 03/09/2023 10:52 AM Signed DATE OF SERVICE: 03/09/2023 PROBLEM: Cheli Osman presents for postop visit. SURGERY AND DATE: PATHOLOGY: Chorionic villi, decidualized stroma and trophoblastic cell. SUBJECTIVE/INTERVAL HISTORY: Cheli Osman reports that she feels well. No fever or chills. No shortness of breath, cough, or chest pain. No incission. Patient reports that her appetite is good. Suction D7C at ~ 16 weeks See HPI and No dysuria, gross hematuria, urinary frequency, urinary urgency, or incontinence. OBJECTIVE: ABDOMEN: Abdomen soft, non-tender, no hepatosplenomegaly. PELVIC: deferred per pt request ASSESSMENT/PLAN Uneventful postop course after Suction DANDC Anemia - CBC ordered Constipation - rec. Mirilax Path as anticipated PLAN: 1. Discussed results of pathology and implications with patient. 2. Postop restrictions reviewed. Erfain Montes De Oca MD Allergies As of Date: 03/09/2023 (No Known Allergies) Date Reviewed: 03/09/2023 Reviewed by: Veronica White LPN - Fully Assessed Reason for Visit: Post Op [174] Primary Visit Diagnosis:Other iron deficiency anemia [D50.8] Other Visit Diagnosis:Drug-induced constipation [K59.03] Order(s):CBC + DIFF [SQCBCDIF] Order #: [id number] FUTURE Prescriptions as of 03/09/2023 - ferrous sulfate (IRON) 325 mg (65 mg iron) tablet Take 1 tablet by mouth two times a day. - multivitamin (CLASSIC ) 28 mg iron- 800 mcg tab(s) Take 1 tablet by mouth once daily. - CRANBERRY EXTRACT (CRANBERRY ORAL) Take by mouth once daily. Sometimes forgets to take it Problem List As Of Date 03/09/2023 Noted Resolved Nausea and vomiting during [O21.9] 11/13/2020 02/11/2023 History of Txlj-Nlaqx-Ekxlmns 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] 11/13/2020 Encounter for supervision of other normal pregn*11/14/2020 07/10/2021 Antepartum anemia in third trimester [O99.013] 11/21/2020 07/10/2021 Abnormal glucose complicating [O99.81*03/04/2021 03/16/2021 Diet controlled gestational diabetes mellitus (*03/16/2021 07/10/2021 History of gestational diabetes [Z86.32] 07/10/2021 02/11/2023 with uncertain dates in first trimest*01/07/2023 02/08/2023 Supervision of normal [Z34.90] 01/07/2023 02/11/2023 10 weeks gestation of [Z3A.10] 01/07/2023 02/08/2023 Heartburn during in first trimester [*01/07/2023 02/08/2023 Asthma during [O99.519, J45.909] 01/07/2023 02/11/2023 Forceps or vacuum extractor delivery [Z37.9] 01/07/2023 02/11/2023 Obesity affecting in first trimester *01/07/2023 02/11/2023 Vaginal bleeding [N93.9] 02/23/2023 Encounter Status:Closed by EFRAIN MONTES DE OCA on 03/09/23 [facility] CNOVon 03-03-2023 CNOV Office Visit (OBGYWM ) CHELI OSMAN ([id number]) 1995 F [facility] Date Time Provider Department 03/03/23 4:20 PM CHELI DILLARD OBGYWM During your visit today, we recorded the following information about you: Cheli Dillard MD 03/04/2023 11:16 AM Signed Patient was not on location when she checked in. Rescheduled due to being >15 min late at end of the day. Cheli Dillard MD Allergies As of Date: 03/03/2023 (No Known Allergies) Date Reviewed: 02/21/2023 Reviewed by: Cheli Dillard MD - Fully Assessed Reason for Visit: Post Op [174] Primary Visit Diagnosis:APPOINTMENT CANCELLED Prescriptions as of 03/04/2023 - ferrous sulfate (IRON) 325 mg (65 mg iron) tablet Take 1 tablet by mouth two times a day. - multivitamin (CLASSIC ) 28 mg iron- 800 mcg tab(s) Take 1 tablet by mouth once daily. - CRANBERRY EXTRACT (CRANBERRY ORAL) Take by mouth once daily. Sometimes forgets to take it Problem List As Of Date 03/03/2023 Noted Resolved Nausea and vomiting during [O21.9] 11/13/2020 02/11/2023 History of Qepv-Feabt-Ahbirek 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] 11/13/2020 Encounter for supervision of other normal pregn*11/14/2020 07/10/2021 Antepartum anemia in third trimester [O99.013] 11/21/2020 07/10/2021 Abnormal glucose complicating [O99.81*03/04/2021 03/16/2021 Diet controlled gestational diabetes mellitus (*03/16/2021 07/10/2021 History of gestational diabetes [Z86.32] 07/10/2021 02/11/2023 with uncertain dates in first trimest*01/07/2023 02/08/2023 Supervision of normal [Z34.90] 01/07/2023 02/11/2023 10 weeks gestation of [Z3A.10] 01/07/2023 02/08/2023 Heartburn during in first trimester [*01/07/2023 02/08/2023 Asthma during [O99.519, J45.909] 01/07/2023 02/11/2023 Forceps or vacuum extractor delivery [Z37.9] 01/07/2023 02/11/2023 Obesity affecting in first trimester *01/07/2023 02/11/2023 Vaginal bleeding [N93.9] 02/23/2023 Encounter Status:Closed by CHELI DILLARD on 03/04/23 [facility] CBC panel Auto (Bld)on 02-23 Erythrocyte distribution width (RBC) [Ratio] 13.9 % Normal 11.5-15.0 [facility] Comment on above: Order Comment: Speci men Type: BLOOD SPECIMEN [facility] Address: [address] [place] [address] Performed By: #### 5 8410-2 #### [facility] CLIA [id number] [address] OF [facility] Hematocrit (Bld) [Volume fraction] 29.1 % Low 36.0-46.0 [facility] Comment on above: Order Comment: Speci men Type: BLOOD SPECIMEN [facility] Address: [address] [place] [address] Performed By: #### 5 8410-2 #### [facility] CLIA [id number] [address] [place] Hemoglobin (Bld) [Mass/Vol] 9.8 g/dL Low 11.5-15.5 [facility] Comment on above: Order Comment: Speci men Type: BLOOD SPECIMEN [facility] Address: [address] [place] [address] Performed By: #### 5 8410-2 #### [facility] CLIA [id number] [address] STATES OF [facility] MCH (RBC) [Entitic mass] 30.0 pg Normal 26.0-34.0 [facility] Comment on above: Order Comment: Speci men Type: BLOOD SPECIMEN [facility] Address: [address] [place] [address] Performed By: #### 5 8410-2 #### [facility] CLIA [id number] [address] [place] MCHC (RBC) [Mass/Vol] 33.7 g/dL Normal 30.5-36.0 [facility] Comment on above: Order Comment: Speci men Type: BLOOD SPECIMEN [facility] Address: [address] [place] [address] Performed By: #### 5 8410-2 #### [facility] CLIA [id number] [address] MCV (RBC) [Entitic vol] 89.0 fL Normal 80.0-100.0 [facility] Comment on above: Order Comment: Speci men Type: BLOOD SPECIMEN [facility] Address: [address] [place] [address] Performed By: #### 5 8410-2 #### [facility] CLIA [id number] [address] [place] Nucleated RBC (Bld) [#/Vol] 10*3/uL Normal <0.01 [facility] Comment on above: Order Comment: Speci men Type: BLOOD SPECIMEN [facility] Address: [address] [place] [address] Performed By: #### 5 8410-2 #### [facility] CLIA [id number] [address] [place] Platelet mean volume (Bld) [Entitic vol] 9.9 fL Normal 9.0-12.7 [facility] Comment on above: Order Comment: Speci men Type: BLOOD SPECIMEN [facility] Address: [address] [place] [address] Performed By: #### 5 8410-2 #### [facility] CLIA [id number] [address] [place] Platelets (Bld) [#/Vol] 197 10*3/uL Normal 150-400 [facility] Comment on above: Order Comment: Speci men Type: BLOOD SPECIMEN [facility] Address: [address] [place] [address] Performed By: #### 5 8410-2 #### [facility] CLIA [id number] [address] [place] RBC (Bld) [#/Vol] 3.27 10*6/uL Low 3.90-5.20 [facility] Comment on above: Order Comment: Speci men Type: BLOOD SPECIMEN [facility] Address: [address] [place] [address] Performed By: #### 5 8410-2 #### [facility] CLIA [id number] [address] OF [facility] WBC (Bld) [#/Vol] 6.23 10*3/uL Normal 3.70-11.00 [facility] Comment on above: Order Comment: Speci men Type: BLOOD SPECIMEN [facility] Address: [address] [place] [address] Performed By: #### 5 8410-2 #### [facility] CLIA [id number] [address] TYPE + SCREEN PRENATALon ABO A Normal [facility] Comment on above: Order Comment: Speci men Type: BLOOD SPECIMEN [facility] Address: [address] [place] [address] Performed By: #### T SPN #### [facility] CLIA [id number] [address] HISTORICAL AB SCR STATUS Negative Normal [facility] Comment on above: Order Comment: Speci men Type: BLOOD SPECIMEN [facility] Address: [address] [place] [address] Performed By: #### T SPN #### [facility] CLIA [id number] [address] Rh Nom (Bld) Positive Normal [facility] Comment on above: Order Comment: Speci men Type: BLOOD SPECIMEN [facility] Address: [address] [place] [address] Performed By: #### T SPN #### [facility] CLIA [id number] [address] TYPE AND SCREEN EXPIRATION 02/26/2023 23:59 Normal [facility] Comment on above: Order Comment: Speci men Type: BLOOD SPECIMEN [facility] Address: [address], [place] [address] Performed By: #### T SPN #### [facility] [id number] [address] [place] [id number] [place] [facility] CNOPon 02-18-2023 CNOP Operative Note (Enc) (OBGYWM) Encounter Status:Closed by CHELI DILLARD on 02/21/23 [facility] CNPRicarda 02-18-2023 CNPN Telephone (OBGYWM) CHELI OSMAN ([id number]) 1995 [facility] Date Time Provider Department 02/18/23 LG MUNSON During your visit today, we recorded the following information about you: Summer Banegas, RN 02/18/2023 3:34 PM Addendum Patient had a suction DANDC @ [facility] today with RR. Patient's mother calling to report that patient is in severe pain. She's in so much pain she passed out in the car, almost passed out while walking from car to house, and then again while at home. Mother states it's uterine pain. Pain rate of 10. Bleeding is NOT heavy. Reviewed bleeding precautions with mother. Mother took patient's BP and it was 90/42. Encouraged to take Ibuprofen, use a heating pad, to eat and drink something and then see how she feels. Can you please advise in RR and DM absence. Thank you. Please call mother's phone: [phone] JARETH Delgadillo Jennifer, RN 02/18/2023 5:14 PM Signed Spoke with mother. Patient is currently napping. She had some water, sprite, a sub, and Ibuprofen. States she went to the bathroom before her nap and has some blood in the toilet and very little on her pad. Per SW, recommended mother take patient to ER if patient has severe pain or heavy bleeding. Mother voiced agreement. Summer Banegas RN Allergies As of Date: 02/18/2023 (No Known Allergies) Date Reviewed: 02/11/2023 Reviewed by: Cheli Dillard MD - Fully Assessed Reason for Visit: Post Op [174] Prescriptions as of 02/18/2023 - multivitamin (CLASSIC ) 28 mg iron- 800 mcg tab(s) Take 1 tablet by mouth once daily. - CRANBERRY EXTRACT (CRANBERRY ORAL) Take by mouth once daily. Sometimes forgets to take it Problem List As Of Date 02/18/2023 Noted Resolved Nausea and vomiting during [O21.9] 11/13/2020 02/11/2023 History of Hubf-Blgvh-Uposqut 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] 11/13/2020 Encounter for supervision of other normal pregn*11/14/2020 07/10/2021 Antepartum anemia in third trimester [O99.013] 11/21/2020 07/10/2021 Abnormal glucose complicating [O99.81*03/04/2021 03/16/2021 Diet controlled gestational diabetes mellitus (*03/16/2021 07/10/2021 History of gestational diabetes [Z86.32] 07/10/2021 02/11/2023 with uncertain dates in first trimest*01/07/2023 02/08/2023 Supervision of normal [Z34.90] 01/07/2023 02/11/2023 10 weeks gestation of [Z3A.10] 01/07/2023 02/08/2023 Heartburn during in first trimester [*01/07/2023 02/08/2023 Asthma during [O99.519, J45.909] 01/07/2023 02/11/2023 Forceps or vacuum extractor delivery [Z37.9] 01/07/2023 02/11/2023 Obesity affecting in first trimester *01/07/2023 02/11/2023 Encounter Status:Closed by SUMMER RUFFIN on 02/18/23 [facility] HISTORY PHYSICALon HISTORY PHYSICAL HNO ID: [id number] Author: CHELI DILLARD MD Service: ? Author Type: Physician Type: H&P Filed: 02/11/2023 15:48 Note Text: Pre-Op History and Physical HPI: The patient is a 28 year old female presenting for pre-operative visit. She is scheduled for Suction DANDC, for 13 week size missed ab on 02/17/23. Procedure discussed along with risks, benefits and complications. Other alternatives discussed for management. Consent form signed? Yes. PAST MEDICAL HISTORY Diagnosis Date Antepartum anemia complicating in first trimester 11/21/2020 Asthma childhood -no attacks since age 9 Diet controlled gestational diabetes mellitus (GDM) in third trimester 03/16/2021 Lvnz-Qrtgq-Szxzvas disease PAST SURGICAL HISTORY Procedure Laterality Date TONSILLECTOMY AND ADENOIDECTOMY HX Current Outpatient Medications Medication Sig Dispense Refill azithromycin (ZITHROMAX Z-EDE) 250 mg tablet 1 dose, Oral, Daily, # 6 tab(s), 0 Refill(s), 84.1 cephALEXin (KEFLEX) 500 mg capsule Take 1 capsule by mouth three times a day for 10 days. 30 capsule 0 multivitamin (CLASSIC ) 28 mg iron- 800 mcg tab(s) Take 1 tablet by mouth once daily. CRANBERRY EXTRACT (CRANBERRY ORAL) Take by mouth once daily. Sometimes forgets to take it No current facility-administered medications for this visit. ALLERGIES: Patient has no known allergies. PERSONAL HISTORY: Social History Tobacco Use Smoking status: Never Passive exposure: Never Smokeless tobacco: Never Vaping Use Vaping Use: Never used Substance Use Topics Alcohol use: Not Currently Drug use: Never FAMILY HISTORY: FAMILY HISTORY Problem Relation Age of Onset Hypertension Mother Heart Father Diabetes Father other (syncope) Sister other (benign tumor eye) Brother COPD Maternal Grandmother other (chf) Maternal Grandmother Ovarian cancer Paternal Grandmother Neuropathy Paternal Grandfather Diabetes Paternal Grandfather REVIEW OF SYMPTOMS: GENERAL: denies fevers or chills ENDOCRINOLOGY: has not been on steroids Cardiology : denies palpitations or chest pain Respiratory: denies SOB or cough Hematology: denies history of prolonged bleeding or easy bruising or VTE Allergy: Denies history of personal or family history of allergy to anesthesia PHYSICAL EXAMINATION: VITALS: Blood pressure 118/68, weight 183 lb (83 kg), last menstrual period 10/29/2022, not currently . GENERAL: The patient is well nourished, well hydrated in no acute distress. , The patient is oriented to time, place, and person. NECK: Supple. No lynphadenopathy, normal thyroid, no thyromegaly. LUNGS: Clear to auscultation bilaterally. no wheezes, rhonchi or rales HEART: Regular rate and rhythm, Normal heart sounds, and No murmurs or gallops GENITALIA: Normal external genitalia, Urethral meatus normal, Bladder nontender, normal vagina and normal vaginal tone, normal cervix, normal uterus, size and consistency, normal adnexa without masses or tenderness, and perineum WNL TVUS done in office, intrauterine gestational sac with embryo 7.2 mm without cardiac actiivity visually or with color doppler. IMPRESSION: 15 week IUP, 13 week size missed PLAN: The risks/benefits/alternatives and personal involved for the planned suction DANDC were reviewed with the patient. Her questions were answered to her satisfaction and she desires to proceed. Consent was signed. I reviewed with her postop instructions and expectations. Reivewed option for genetic testing, declines today. I have reviewed and updated past medical and surgical history, medications and allergies Cheli Dillard M.D. [facility] [id number] PLUSon 02-08-2023 Cell-free DNA./Cell-misael e DNA.total Dosage of chromosome-specifi c cfDNA (cfDNA) [Molar fraction] 9% [facility] Comment on above: Order Comment: Speci men Type: BLOOD SPECIMENOrdering Facility: [facility] Address: [place] [address] Performed By: #### M AT21 ####[facility] LABCLIA [id number] [place] [address] Chr 13+18+21+X+Y aneuploidy Dosage of chromosome-specifi c cfDNA Ql (cfDNA) Negative [facility] Comment on above: Order Comment: Speci men Type: BLOOD SPECIMENOrdering Facility: [facility] Address: [address] [place] [address] Performed By: #### M AT21 ####[facility] LABCLIA [id number] [place] [address] Chr 21 trisomy Dosage of chromosome-specifi c cfDNA Ql (cfDNA) Negative [facility] Comment on above: Order Comment: Speci men Type: BLOOD SPECIMENOrdering Facility: [facility] Address: [address] [place] [address] Performed By: #### M AT21 ####[facility] LABCLIA [id number] [place] [address] Chr X and Y aneuploidy risk Sequencing Ql (cfDNA) [Interp] Not detected [facility] Comment on above: Order Comment: Speci men Type: BLOOD SPECIMENOrdering Facility: [facility] Address: [address] [place] [address] Result Comment: Not Detected Not Detected Performed By: #### M AT21 ####[facility] LABCLIA [id number] [place] [address] Citation Ankush (Reference lab test) Comment [facility] Comment on above: Order Comment: Speci men Type: BLOOD SPECIMENOrdering Facility: [facility] Address: [address] [place] [address] Result Comment: 1. P dakota HAGAN, et al. Malgorzata Med. 2012;14(3):296-305. 2. Zackery GUZMAN, et al. Prenat Diag. 2013;33(6):591-597. 3. Cb C, et al. Clin Chem. 2015 Apr;61(4):608-616. 4. Layton HAGAN et al. Malgorzata Med. 2011;13(11):913-920. 5. ACOG/SMFM Practice Bulletin No. 226, Nov 2019. Performed By: #### M AT21 ####[facility] LABCLIA [id number] [place] [address] Gestational age Estimated from conception date Cash [facility] Comment on above: Order Comment: Herman granados Type: BLOOD SPECIMENOrdering Facility: [facility] Address: [address] [place] [address] Performed By: #### M AT21 ####[facility] LABCLIA [id number] [place] [address] GESTATIONALAGE AGE > OR = 9W Yes [facility] Comment on above: Order Comment: Herman granados Type: BLOOD SPECIMENOrdering Facility: [facility] Address: [address] [place] [address] Performed By: #### M AT21 ####[facility] LABCLIA [id number] [place] [id number] Laboratory comment Ankush (Report) Comment [facility] Comment on above: Order Comment: Herman granados Type: BLOOD SPECIMENOrdering Facility: [facility] Address: [address] [place] [address] Result Comment: The MaterniT(R) 21 PLUS laboratory-developed test (LDT) analyzes circulating cell-free DNA from a maternal blood sample. This test is used for screening purposes and not diagnostic. Clinical correlation is recommended. Validation data on twin pregnancies is limited and the ability of this test to detect aneuploidy in higher multiple gestations has not yet been validated. Performed By: #### M AT21 ####[facility] LABCLIA [id number] [place] [address] active directory engineer name Nom (Provider) Comment [facility] Comment on above: Order Comment: Herman roberta Type: BLOOD SPECIMENOrdering Facility: [facility] Address: [address] [place] [address] Result Comment: This specimen showed an expected representation of chromosome 21, 18 and 13 material. Clinical correlation is suggested. Comment Ruperto Gutierrez MD, PhD, Director, [employer] Performed By: #### M AT21 ####[facility] LABCLIA [id number] [place] [address] LIMITATIONS OF THE TEST Comment [facility] Comment on above: Order Comment: Herman granados Type: BLOOD SPECIMENOrdering Facility: [facility] Address: [address], [place] [address] Result Comment: Alejandra cox the results of these tests are highly reliable, discordant results, including inaccurate sex prediction, may occur due to placental, maternal, or mosaicism or neoplasm; vanishing twin; prior maternal organ transplant; or other causes. These tests are screening tests and not diagnostic; they do not replace the accuracy and precision of diagnosis with CVS or amniocentesis. A patient with a positive test result should be referred for genetic counseling and offered invasive diagnosis for confirmation of test results.[5] The results of this testing, including the benefits and limitations, should be discussed with a qualified healthcare provider. management decisions, including termination of the , should not be based on the results of these tests alone. The healthcare provider is responsible for the use of this information in the management of their patient. Sex chromosomal aneuploidies are not reportable for known multiple gestations. A negative result does not ensure an unaffected nor does it exclude the possibility of other chromosomal abnormalities or defects which are not a part of these tests. An uninformative result may be reported, the causes of which may include, but are not limited to, insufficient sequencing coverage, noise or artifacts in the region, amplification or sequencing bias, or insufficient fraction. These tests are not intended to identify pregnancies at risk for neural tube defects or ventral wall defects. Testing for whole chromosome abnormalities (including sex chromosomes) and for subchromosomal abnormalities could lead to the potential discovery of both and maternal genomic abnormalities that could have major, minor, or no, clinical significance. Evaluating the significance of a positive or a non-reportable result may involve both invasive testing and additional studies on the mother. Such investigations may lead to a diagnosis of maternal chromosomal or subchromosomal abnormalities, which on occasion may be associated with benign or malignant maternal neoplasms. These tests may not accurately identify triploidy, balanced rearrangements, or the precise location of subchromosomal duplications or deletions; these may be detected by diagnosis with CVS or amniocentesis. The ability to report results may be impacted by maternal BMI, maternal weight, maternal systemic lupus erythematosus (SLE) and/or by certain pharmaceutical agents such as low molecular weight heparin (for example: Lovenox(R), Xaparin(R), Clexane(R) and Fragmin(R)). Performed By: #### M AT21 ####[facility] LABCLIA [id number] [place] [address] Monosomy X risk Dosage of chromosome-specifi c cfDNA Ql (Plasma cell-free+WBC DNA) [Interp] Not detected Normal [facility] Comment on above: Order Comment: Speci men Type: BLOOD SPECIMENOrdering Facility: [facility] Address: [address] [place] [address] Performed By: #### M AT21 ####[facility] LABCLIA [id number] [place] [address] NEGATIVE PREDICTIVE VALUE Note Normal [facility] Comment on above: Order Comment: Speci men Type: BLOOD SPECIMENOrdering Facility: [facility] Address: [address] [place] [address] Result Comment: The Negative Predictive Value (NPV) for trisomy 21, 18, and 13 is greater than 99%. The NPV for SCA and ESS cannot be calculated as SCA and ESS are only reported when an abnormality is detected. Performed By: #### M AT21 ####[facility] LABCLIA [id number] [place] [address] NOTE Comment Normal [facility] Comment on above: Order Comment: Speci [facility] Type: BLOOD SPECIMENOrdering Facility: [facility] Address: [address] [place] [address] Result Comment: See Notes [employer] is a subsidiary of [employer], using the brand [employer]. This test was developed and its performance characteristics determined by [employer]. It has not been cleared or approved by the Food and Drug Administration. This laboratory is certified under the Clinical Laboratory Improvement Amendments (CLIA) as qualified to perform high complexity clinical laboratory testing and accredited by the [employer] (CAP). If there is future clinical need for adding MaterniT GENOME testing, this specimen will be available until term. [facility] samples will not be retained beyond 60 days. [facility] patients will have to send a new sample for re-sequencing ([facility] Test Code: 332298). Performed By: #### M AT21 ####[facility] [id number] [place] [address] PERFORMANCE CHARACTERISTICS Note Normal [facility] Comment on above: Order Comment: Nickii men Type: BLOOD SPECIMENOrdering Facility: [facility] Address: [address] [place] [address] Result Comment: ! Sex ! Accuracy: 99.4% ! ! ! ! Region (associated syndrome) ! Est. Sens# ! Est. Spec ! ! ! ! Trisomy 21 (Down Syndrome) ! 99.1% ! 99.9% ! ! ! ! Trisomy 18 (Tolentino Syndrome) ! >99.9% ! 99.6% ! ! ! ! Trisomy 13 (Patau Syndrome) ! 91.7% ! 99.7% ! ! ! ! Sex Chromosome Aneuploidies## ! 96.2% ! 99.7% ! ! ! * As reported in ISCA database nstd37 [https://www.ncbi.nlm.nih.gov/dbvar/studies/nstd37/ ] # Estimated Sensitivity. Sensitivity estimated across the observed size distribution of each syndrome [per ISCA database nstd37] and across the range of fractions observed in routine clinical NIPT. Actual sensitivity can also be influenced by other factors such as the size of the event, total sequence counts, amplification bias, or sequence bias. ## Cash gestation only. Performed By: #### M AT21 ####[employer] LABFastPayIA [id number] [place] [address] POSITIVE PREDICTIVE VALUE N/A Normal [facility] Comment on above: Order Comment: Herman granados Type: BLOOD SPECIMENOrdering Facility: [facility] Address: [address] [place] [address] Performed By: #### M AT21 ####[facility] LABCLIA [id number] [place] [address] Reference Lab Test Method Comment Normal [facility] Comment on above: Order Comment: Herman granados Type: BLOOD SPECIMENOrdering Facility: [facility] Address: [address] [place] [address] Result Comment: See Notes Circulating cell-free DNA was purified from the plasma component of maternal blood. The extracted DNA was then converted into a genomic DNA library for aneuploidy analysis of chromosomes 21, 18, and 13 via next generation sequencing.[1] Optional findings based on the test order include sex chromosome aneuploidy (SCA)[2], and enhanced sequencing series (ESS)[3], which will only be reported on as an additional finding when an abnormality is detected. SCA testing includes information on X and Y representation, while ESS testing includes deletions in selected regions (22q, 15q, 11q, 8q, 5p, 4p, 1p) and trisomy of chromosomes 16 and 22. Performed By: #### M AT21 ####[employer] LABCLIA [id number] [place] [address] Sex Dosage of chromosome-specifi c cfDNA Nom (cfDNA) Comment Normal [facility] Comment on above: Order Comment: Speci men Type: BLOOD SPECIMENOrdering Facility: [facility] Address: [address] [place] [address] Result Comment: Cons istent with Female Performed By: #### M AT21 ####[facility] LABCLIA [id number] [place] [address] Test performance information Ankush (Unsp spec) Comment Normal [facility] Comment on above: Order Comment: Speci men Type: BLOOD SPECIMENOrdering Facility: [facility] Address: [address] [place] [address] Result Comment: The performance characteristics of the MaterniT(R) 21 PLUS laboratory-developed test (LDT) have been determined in a clinical validation study with women at increased risk for chromosomal aneuploidy.[1-4] Performed By: #### M AT21 ####[employer] LABCLIA [id number] [place] [address] Trisomy 13 risk Dosage of chromosome-specifi c cfDNA Ql (cfDNA) [Interp] Negative Normal [facility] Comment on above: Order Comment: Speci men Type: BLOOD SPECIMENOrdering Facility: [facility] Address: [address] [place] [address] Performed By: #### M AT21 ####[facility] LABCLIA [id number] [place] [address] Trisomy 18 risk Dosage of chromosome-specifi c cfDNA Ql (Plasma cell-free+WBC DNA) [Interp] Negative Normal [facility] Comment on above: Order Comment: Speci men Type: BLOOD SPECIMENOrdering Facility: [facility] Address: [address] [place] [address] Performed By: #### M AT21 ####[facility] LABIA [id number] [place] [address] GARDENIAOVsae 2023 [facility] Office Visit ([facility] ) CHELI OSMAN ([id number]) 1995 F [facility] Date Time Provider Department 02/03/23 7:35 PM DENISE COTTON [facility] During your visit today, we recorded the following information about you: Temperature Pulse Respiration Blood pressure 97.7 degrees 82/minute 17/minute 120/79 Weight Last Period 84.8 kg 10/29/22 Denise Cotton APRN.PROFESSOR OF PATHOLOGY 2023 8:58 PM Signed Cheli Albertoey is a 28 year old female who [...] diabetes mellitus (GDM) in third trimester 03/16/2021 Clud-Lfqui-Jcmavfa disease ACTIVE PROBLEM LIST Nausea and Vomiting During History of Znos-Uhddc-Dahgdzu Disease History of Gestational Diabetes With Uncertain [...] if symptoms change or worsen. Denise Cotton APRN.Denise Maldonado APRN.CNP 2023 8:47 PM Signed follow with PCP in 2-5 days Emergency room if symptoms change or worsen. [facility] [address]. [place], [place] [address] Emergency Department Diagnosis: Assessment CELLULITIS: Your exam shows you have an infection of the skin called cellulitis. This infection usually develops after an injury, cut, bite, or sting, but may occur without any known cause. Usually there is a localized area of redness, swelling, and pain which gets constantly (more content not included)... Normal [facility] CNOVon 01-19-2023 CNOV Office Visit ([facility] ) JACQUICHELI ([id number]) 1995 [facility] Date Time Provider Department 01/19/23 1:20 PM HARPREET SHANKAR [facility] During your visit today, we recorded the following information about you: Temperature Pulse Blood pressure Weight 98.8 degrees 108/minute 114/68 83.8 kg Height 1.549 m [place], [place] 01/19/2023 1:17 PM Signed Cheli Osman is a 27 year old female who presents for Establish Care Patient has no concerns, patient is 11weeks and 5 days JOSE Rubi John David, MD 01/19/2023 2:20 PM Signed [facility] [address] [address] Date of Evaluation: 01/19/2023 Patient Name: Cheli Osman : 1995 Chief Complaint: Patient presents with: [facility] Care Nursing Intake: Nursing Notes: [place] (Jose)JOSE 01/19/2023 1:17 PM Signed Cheli Tim Osman is a 27 year old female who presents for [facility] Care Patient has no concerns, patient is 11weeks and 5 days [place] Subjective Ms. Osman is a 27 year old female who presents with the following complaint(s): HPI This patient [facility] They are new to the office and new to me. She is 11 weeks , being followed by [employer]. This is her second . She is [...] 312-hour shifts at a F as a [employer]. She is in a relationship with the father of her current child, trying to work with her ex- around childcare and visitation for her 11-hapot-efi. She follows with [employer], she does not smoke may have 1 [...] doctor - ICD9: V65.8, ICD10: Z76.89 (primary di (more content not included)... Normal [facility] Freddie 01-11-2023 CNPN Telephone ([facility]) CHELI OSMAN ([id number]) 1995 F [facility] Date Time Provider Department 01/11/23 BRENNA ALTAMIRANO [facility] During your visit today, we recorded the following information about you: Maikel Lea RN 01/11/2023 10:21 AM Signed 1st risk assessment form submitted 01/11/23 Maikel Lea RN Allergies As of Date: 01/11/2023 (No Known Allergies) Date Reviewed: 01/07/2023 Reviewed by: Brenna Altamirano APRN.PROFESSOR OF PATHOLOGY - Fully Assessed Reason for Visit: PRAF [4193] Prescriptions as of 01/11/2023 - multivitamin (CLASSIC ) 28 mg iron- 800 mcg tab(s) Take 1 tablet by mouth once daily. - CRANBERRY EXTRACT (CRANBERRY ORAL) Take by mouth. Problem List As Of Date 01/11/2023 Noted Resolved Nausea and vomiting during [O21.9] 11/13/2020 History of Yqci-Wwkwk-Acfsmsn 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] 11/13/2020 Encounter for supervision of other normal pregn*11/14/2020 07/10/2021 Antepartum anemia in third trimester [O99.013] 11/21/2020 07/10/2021 Abnormal glucose complicating [O99.81*03/04/2021 03/16/2021 Diet controlled gestational diabetes mellitus (*03/16/2021 07/10/2021 History of gestational diabetes [Z86.32] 07/10/2021 with uncertain dates in first trimest*01/07/2023 Supervision of normal [Z34.90] 01/07/2023 10 weeks gestation of [Z3A.10] 01/07/2023 Heartburn during in first trimester [*01/07/2023 Asthma during [O99.519, J45.909] 01/07/2023 Forceps or vacuum extractor delivery [Z37.9] 01/07/2023 Obesity affecting in first trimester *01/07/2023 Encounter Status:Closed by MAIKEL LEA on 01/11/23 Normal [facility] Bacteria Ur Culton 3 Bacteria identified Cx Nom (U) ORGANISM ID: 1 10,000 -<50,000 CFU/ml Normal urogenital kleber Normal [facility] Comment on above: Performed By: #### 6 30-4 ####[facility] LABCLIA [id number] [place] [address] [place] C. trachomatis+N. gonorrhoea e DNA JOEL+probe Ql (Unsp spec)on 01-07-2023 C. trachomatis rRNA JOEL+probe Ql (Unsp spec) Negative Normal Negative for Chlamydia trachomatis by amplificaton [facility] Comment on above: Order Comment: Speci men Type: SWABOrdering Facility: [facility] Address: [address] [place] [address] Performed By: #### 3 6902-5 ####[facility] LABCLIA [id number] [place] [address] [place] N. gonorrhoeae rRNA JOEL+probe Ql (Unsp spec) Negative Normal Negative for Neisseria gonorrhoeae by amplification [facility] Comment on above: Order Comment: Speci men Type: SWABOrdering Facility: [facility] Address: [address] [place] [address] Performed By: #### 3 6902-5 ####[facility] LABCLIA [id number] [place] [address] [place] CARRIER SCREEN, STANDARDon 1 03-10-2022 CARRIER SCREEN RESULTS View results in Scanned Documents link when available. Normal [facility] Comment on above: Order Comment: Speci men Type: BLOOD SPECIMENOrdering Facility: [facility] Address: [address] [place] [address] Performed By: #### C RRSCN ####MYRIADCLIA [id number] [place] [address] CBC panel Auto (Bld)on 01-07 Erythrocyte distribution width (RBC) [Ratio] 13.2 % 11.5 - 15.0 % [facility] Hematocrit (Bld) [Volume fraction] 38.1 % 36.0 - 46.0 % [facility] Hemoglobin (Bld) [Mass/Vol] 13.0 g/dL 11.5 - 15.5 g/dL [facility] MCH (RBC) [Entitic mass] 29.1 pg 26.0 - 34.0 pg [facility] MCHC (RBC) [Mass/Vol] 34.1 g/dL 30.5 - 36.0 g/dL [facility] MCV (RBC) [Entitic vol] 85.4 fL 80.0 - 100.0 fL [facility] Nucleated RBC (Bld) [#/Vol] <0.01 k/uL [facility] Platelet mean volume (Bld) [Entitic vol] 10.2 fL 9.0 - 12.7 fL [facility] Platelets (Bld) [#/Vol] 235 10*3/uL 150 - 400 k/uL [facility] RBC (Bld) [#/Vol] 4.46 10*6/uL 3.90 - 5.2 0 m/uL [facility] WBC (Bld) [#/Vol] 7.18 10*3/uL 3.70 - 11. 00 k/uL [facility] Hematocrit (Bld) [Volume fraction] 38.1 % Normal 36.0-46.0 [facility] Comment on above: Order Comment: Speci men Type: BLOOD SPECIMENOrdering Facility: [facility] Address: [address] [place] [address] Performed By: #### 5 8410-2 ####[facility] [id number] STATES OF [facility] MCH (RBC) [Entitic mass] 29.1 pg Normal 26.0-34.0 [facility] Comment on above: Order Comment: Speci men Type: BLOOD SPECIMENOrdering Facility: [facility] Address: [address] [id number] Performed By: #### 5 8410-2 ####[facility] [id number] [place] [address] [place] MCHC (RBC) [Mass/Vol] 34.1 g/dL Normal 30.5-36.0 [facility] Comment on above: Order Comment: Speci men Type: BLOOD SPECIMENOrdering Facility: [facility] Address: [address] [place] [address] Performed By: #### 5 8410-2 ####[facility] MANJU [id number] [place] [address] [place] MCV (RBC) [Entitic vol] 85.4 fL Normal 80.0-100.0 [facility] Comment on above: Order Comment: Speci men Type: BLOOD SPECIMENOrdering Facility: [facility] Address: [address] [place] [address] Performed By: #### 5 8410-2 ####[facility]ITALAMELIESTELLA [id number] [place] [address] [place] Nucleated RBC (Bld) [#/Vol] 10*3/uL Normal <0.01 [facility] Comment on above: Order Comment: Speci men Type: BLOOD SPECIMENOrdering Facility: [facility] Address: [address] [place] [address] Performed By: #### 5 8410-2 ####[facility] ERAmanda [id number] [place] [address] [place] Platelet mean volume (Bld) [Entitic vol] 10.2 fL Normal 9.0-12.7 [facility] Comment on above: Order Comment: Speci men Type: BLOOD SPECIMENOrdering Facility: [facility] Address: [address] [place] [address] Performed By: #### 5 8410-2 ####[facility] HOSPITALNCLIAmanda [id number] [place] [address] [place] Platelets (Bld) [#/Vol] 235 10*3/uL Normal 150-400 [facility] Comment on above: Order Comment: Speci men Type: BLOOD SPECIMENOrdering Facility: [facility] Address: [address] [place] [address] Performed By: #### 5 8410-2 ####[facility]OS[facility]ITALNCLIA [id number] [place] [address] [place] RBC (Bld) [#/Vol] 4.46 10*6/uL Normal 3.90-5.20 [facility] Comment on above: Order Comment: Speci men Type: BLOOD SPECIMENOrdering Facility: [facility] Address: [address] [place] [address] Performed By: #### 5 8410-2 ####[facility]ITALNCL[facility] [id number] [place] [address] [place] WBC (Bld) [#/Vol] 7.18 10*3/uL Normal 3.70-11.00 [facility] Comment on above: Order Comment: Speci men Type: BLOOD SPECIMENOrdering Facility: [facility] Address: [address] [place] [address] Performed By: #### 5 8410-2 ####[facility] ERA [id number] [place] [address] [place] HBV surface Ag Ser Qlon HBV surface Ag Ql (S) Negative Normal Negative [facility] Comment on above: Order Comment: Speci men Type: BLOOD SPECIMENOrdering Facility: [facility] Address: [address] [place] [address] Performed By: #### 5 195-3, 16700-4, 65908-1 ####[facility] LABCLIA [id number] [place] [address] [place] HCV Ab Ser Qlon 01-07-2023 HCV Ab Ql (S) Negative Normal Negative [facility] Comment on above: Order Comment: Speci men Type: BLOOD SPECIMENOrdering Facility: [facility] Address: [address] [place] [address] Result Comment: The result suggests no evidence of active infection with Hepatitis C virus. Should recent infection be suspected, repeat testing may be considered 4-6 weeks after this draw. Performed By: #### 1 6128-1 ####[facility] LABCLIA [id number] [place] [address] [place] HGB ELECTROPHORESIS FOR EVAL (LAB ORDER)on 01-07-2023 Hemoglobin A (Bld) [Mass fraction] 97.4 % Normal 96.2-98.0 [facility] Comment on above: Order Comment: Speci men Type: BLOOD SPECIMENOrdering Facility: [facility] Address: [address] [place] [address] Performed By: #### H GBELEV ####[facility]ITAL[facility] [id number] [place] [address] [place] Hemoglobin A2 (Bld) [Mass fraction] 2.6 % Normal 2.0-3.1 [facility] Comment on above: Order Comment: Speci men Type: BLOOD SPECIMENOrdering Facility: [facility] Address: [address] [place] [address] Performed By: #### H GBELEV ####[facility] HOSPITALIA [id number] [place] [address] [place] Hemoglobin Unsp Elph (Bld) [Mass fraction] No abnormal hemoglobin identified. Normal No abnormal hemoglobin identified. [facility] Comment on above: Order Comment: Speci men Type: BLOOD SPECIMENOrdering Facility: [facility] Address: [address] [place] [address] Performed By: #### H GBELEV ####[facility]ITALIA [id number] [place] [address] [place] HIV 1+2 Ab IA Qlon 3 HIV 1 and 2 Ab IA.rapid Nom Normal [facility] Comment on above: Order Comment: Speci men Type: BLOOD SPECIMENOrdering Facility: [facility] Address: [address] [place] [address] Result Comment: Test not indicated. Performed By: #### 5 195-3, 20324-4, 21376-3 ####[facility] LABIA [id number] [place] [address] [place] HIV 1+2 Ab+HIV1 p24 Ag IA Ql Non-Reactive Normal Nonreactive [facility] Comment on above: Order Comment: Speci men Type: BLOOD SPECIMENOrdering Facility: [facility] Address: [address] [place] [address] Performed By: #### 5 195-3, 19973-9, 33970-7 ####[facility] LABIA [id number] [place] [address] [place] HIV immunoassay testing algorithm interpretation (S/P/Bld) [Interp] Normal [facility] Comment on above: Order Comment: Speci men Type: BLOOD SPECIMENOrdering Facility: [facility] Address: [address] [place] [address] Result Comment: No e vidence of HIV-1 or HIV-2 infection. Should recent infection be suspected, repeat testing may be considered 2-3 weeks after this draw. [place] Rev. Code 3701.243(E): This information has been disclosed to you from confidential records protected from disclosure by state law. ???You shall make no further disclosure of this information without the specific, written, and informed release of the individual to whom it pertains or as otherwise permitted by state law. A general authorization for the release of medical or other information is not sufficient for the purpose of the release of HIV test results or diagnoses. Performed By: #### 5 195-3, 52923-0, 14574-6 ####[facility] LABIA [id number] [place] [address] [place] HbA1c (Bld)on 01-07-2023 Average glucose Estimated from glycated hemoglobin (Bld) [Mass/Vol] 103 mg/dL Normal [facility] Comment on above: Order Comment: Speci men Type: BLOOD SPECIMENOrdering Facility: [facility] Address: [address] [place] [address] Result Comment: eAG: (Estimated average glucose) is a calculated value from HgbA1c and is car sales representative of the average blood glucose level in the last 2-3 month period. Performed By: #### 5 5454-3 ####[facility] LABIA [id number] [address] [place] HbA1c (Bld) [Mass fraction] 5.2 % Normal 4.3-5.6 [facility] Comment on above: Order Comment: Speci men Type: BLOOD SPECIMENOrdering Facility: [facility] Address: [address] [place] [address] Result Comment: Amer [place] Diabetes Association guidelines indicate that patients with HgbA1c in the range 5.7-6.4% are at increased risk for development of diabetes, and intervention by lifestyle modification may be beneficial. HgbA1c greater or equal to 6.5% is considered diagnostic of diabetes. Performed By: #### 5 5454-3 ####[facility] LABIA [id number] [address] [place] RBC PARAMETERS FOR HB IDon 1 03-10-2022 Erythrocyte distribution width (RBC) [Ratio] 13.2 % Normal 11.5-15.0 [facility] Comment on above: Order Comment: Nickii roberta Type: BLOOD SPECIMENOrdering Facility: [facility] Address: [address] [place] [address] Performed By: #### L [id number] ####[facility] LABIA [id number] [address] [place] Performed By: #### 5 8410-2 ####[facility] [id number] [address] [place] Hematocrit (Bld) [Volume fraction] 40.2 % Normal 36.0-46.0 [facility] Comment on above: Order Comment: Nickii men Type: BLOOD SPECIMENOrdering Facility: [facility] Address: [address] [place] [address] Performed By: #### L [id number] ####[facility] LABIA [id number] [place] [address] [place] Hemoglobin (Bld) [Mass/Vol] 13.0 g/dL Normal 11.5-15.5 [facility] Comment on above: Order Comment: Speci men Type: BLOOD SPECIMENOrdering Facility: [facility] Address: [address] [place] [address] Performed By: #### L [id number] ####[facility] LABIA [id number] [place] [address] [place] Performed By: #### 5 8410-2 ####[facility] [id number] [place] [address] [place] MCH (RBC) [Entitic mass] 28.5 pg Normal 26.0-34.0 [facility] Comment on above: Order Comment: Speci men Type: BLOOD SPECIMENOrdering Facility: [facility] Address: [address] [place] [address] Performed By: #### L [id number] ####[facility] LABIA [id number] [address] [place] MCHC (RBC) [Mass/Vol] 32.3 g/dL Normal 30.5-36.0 [facility] Comment on above: Order Comment: Speci men Type: BLOOD SPECIMENOrdering Facility: [facility] Address: [address] [place] [address] Performed By: #### L [id number] ####[facility] LABIA [id number] [address] [place] MCV (RBC) [Entitic vol] 88.2 fL Normal 80.0-100.0 [facility] Comment on above: Order Comment: Speci men Type: BLOOD SPECIMENOrdering Facility: [facility] Address: [address] [place] [address] Performed By: #### L [id number] ####[facility] LABCLIA [id number] [place] [address] [place] [place] RBC (Bld) [#/Vol] 4.56 10*6/uL Normal 3.90-5.20 [facility] Comment on above: Order Comment: Speci men Type: BLOOD SPECIMENOrdering Facility: [facility] Address: [address] [place] [address] Performed By: #### L [id number] ####[facility] LABCLIA [id number] [place] [address] [place] RUBELLA IGG ABon 01-07-2023 RUBELLA IGG AB, QUAL Positive Normal Positive [facility] Comment on above: Order Comment: Speci men Type: BLOOD SPECIMENOrdering Facility: [facility] Address: [address] [place] [address] Result Comment: The result suggests recent or past exposure to Rubella virus or history of Rubella vaccination. Positive result may also be seen due to presence of passively-transferred antibodies. Please correlate with patient's history. Performed By: #### R UBIGG ####[facility] LABIA [id number] [place] [address] [place] Reagin and Treponema pallidu m IgG and IgM [Interp]on 01-07-2023 T. pallidum IgG+IgM IA Ql (S) Non-Reactive Normal Nonreactive [facility] Comment on above: Order Comment: Speci men Type: BLOOD SPECIMENOrdering Facility: [facility] Address: [address] [place] [address] Performed By: #### 5 195-3, 44780-4, 10589-2 ####[facility] LABIA [id number] [place] [address] [place] Reagin+T pallidum IgG+IgM Se rPl-Impon 01-07-2023 Reagin and Treponema pallidum IgG and IgM [Interp] Cannot exclude recent Treponemal infection if specimen collected within 7-10 days after appearance of suspect lesions or 2-3 weeks after an exposure. Clinical correlation is required. Normal [facility] Comment on above: Order Comment: Speci men Type: BLOOD SPECIMENOrdering Facility: [facility] Address: [address] [place] [address] Performed By: #### 5 195-3, 60516-4, 05161-2 ####[facility] LABCLIA [id number] [place] [address] [place] TYPE + SCREEN PRENATALon ABO A Normal [facility] Comment on above: Order Comment: Speci men Type: BLOOD SPECIMENOrdering Facility: [facility] Address: [address] [place] [address] Performed By: #### T SPN ####[facility] MAIN BLOOD BANKCLIA [id number] [place] [address] [place] HISTORICAL AB SCR STATUS Negative Normal [facility] Comment on above: Order Comment: Speci men Type: BLOOD SPECIMENOrdering Facility: [facility] Address: [address] [place] [address] Performed By: #### T SPN ####[facility] MAIN BLOOD BANKCLIA [id number] [place] [address] [place] Rh Nom (Bld) Positive Normal [facility] Comment on above: Order Comment: Speci men Type: BLOOD SPECIMENOrdering Facility: [facility] Address: [address] [place] [address] Performed By: #### T SPN ####[facility] MAIN BLOOD BANKCLIA [id number] [place] [address] [place] TYPE AND SCREEN EXPIRATION 01/10/2023 23:59 Normal [facility] Comment on above: Order Comment: Speci men Type: BLOOD SPECIMENOrdering Facility: [facility] Address: [address] [place] [address] Performed By: #### T SPN ####CC MAIN BLOOD BANKCLIA [id number] [facility] [id number] [address] [facility] CNOVon 01-01-2023 CNOV Office Visit (UCMMAS ) CHELI OSMAN ([id number]) 1995 F [facility] Date Time Provider Department 01/01/23 11:00 AM ARLEEN BROWN [facility] During your visit today, we recorded the following information about you: Temperature Pulse Respiration Blood pressure 97.8 degrees 68/minute 20/minute 112/78 Weight Last Period 86 kg 10/29/22 Arleen Brown APRN.PROFESSOR OF PATHOLOGY 01/01/2023 12:24 PM Signed HPI: Cheli Dumont Ridgley is a 27 year old female who [...] diabetes mellitus (GDM) in third trimester 03/16/2021 Cnof-Fulws-Xgrwqdy disease ACTIVE PROBLEM LIST History of Ucxk-Ptgrt-Pwqmpps Disease History of Gestational Diabetes Current Outpatient [...] Due to patient being 8 weeks , sympto (more content not included)... Normal [facility] .Auto Diffon 11-02-2022 Basophil, Absolute 0.0 10 3/mcL Normal 0.0-0.2 [facility] ([place]) Comment on above: Performed By: #### M DW, ANEU, BMP, CBC, ADIFF, GFR #### [address] [address] Basophils/100 WBC (Bld) 0.2 % Normal 0.0-2.5 [facility] ([place]) Comment on above: Performed By: #### M DW, ANEU, BMP, CBC, ADIFF, GFR #### [address] [address] Eosinophil, Absolute 0.1 10 3/mcL Normal 0.0-0.4 [facility] ([place]) Comment on above: Performed By: #### M DW, ANEU, BMP, CBC, ADIFF, GFR #### [address] [address] Eosinophils/100 WBC (Bld) 0.7 % Normal 0.0-7.0 [facility] ([place]) Comment on above: Performed By: #### M DW, ANEU, BMP, CBC, ADIFF, GFR #### [address] [address] Lymphocyte, Absolute 0.9 10 3/mcL Normal 0.8-3.9 [facility] ([place]) Comment on above: Performed By: #### M DW, ANEU, BMP, CBC, ADIFF, GFR #### [address] [address] Lymphocytes/100 WBC (Bld) 11.8 % Normal 10.0-50.0 [facility] ([place]) Comment on above: Performed By: #### M DW, ANEU, BMP, CBC, ADIFF, GFR #### [address] [address] Monocyte, Absolute 0.4 10 3/mcL Normal 0.2-1.0 [facility] ([place]) Comment on above: Performed By: #### M DW, ANEU, BMP, CBC, ADIFF, GFR #### [address] [address] Monocytes/100 WBC (Bld) 5.1 % Normal 1.7-13.0 [facility] ([place]) Comment on above: Performed By: #### M DW, ANEU, BMP, CBC, ADIFF, GFR #### [address] [address] Neutrophils/100 WBC (Bld) 82.2 % High 37.0-80.0 [facility] ([place]) Comment on above: Performed By: #### M DW, ANEU, BMP, CBC, ADIFF, GFR #### [address] [address] .GFRon 11-02-2022 GFR 99 ml/min/1.73sqm Normal [facility] ([place]) Comment on above: Result Comment: GFR Population mean for , Non- Americans Ages 20-29 = 116 mL/min/1.73 sq.m. Ages 30-39 = 107 mL/min/1.73 sq.m. Ages 40-49 = 99 mL/min/1.73 sq.m. Ages 50-59 = 93 mL/min/1.73 sq.m. Ages 60-69 = 85 mL/min/1.73 sq.m. Ages 70+ = 75 mL/min/1.73 sq.m. Chronic Kidney Disease: Less than 60 mL/min/1.73 square meters End Stage Renal Disease: Less than 15 mL/min/1.73 square meters Performed By: #### U AMICAO PREGU, UA #### [address] [place], [place] [address] GFR Non- 81 ml/min/1.73sqm Normal [facility] ([place]) Comment on above: Result Comment: GFR Population mean for , Non- Americans Ages 20-29 = 116 mL/min/1.73 sq.m. Ages 30-39 = 107 mL/min/1.73 sq.m. Ages 40-49 = 99 mL/min/1.73 sq.m. Ages 50-59 = 93 mL/min/1.73 sq.m. Ages 60-69 = 85 mL/min/1.73 sq.m. Ages 70+ = 75 mL/min/1.73 sq.m. Chronic Kidney Disease: Less than 60 mL/min/1.73 square meters End Stage Renal Disease: Less than 15 mL/min/1.73 square meters Performed By: #### U JOSEF HEATHU, UA #### [address] [address] .MDWon 11-02-2022 Monocyte Distribution Width 18.47 Normal 0.00-20.00 [facility] ([place]) Comment on above: Result Comment: For ED adult patients suspected of sepsis, MDW<=20.0 does not rule out sepsis or risk of sepsis Performed By: #### M DW, ANEU, BMP, CBC, ADIFF, GFR #### Debbie [address] [address] .NEUABSon 11-02-2022 Neutrophil, Absolute 6.4 10 3/mcL High 2.9-6.2 [facility] ([place]) Comment on above: Performed By: #### M DW, ANEU, BMP, CBC, ADIFF, GFR #### [address] [place], [place] [address] .Urinalysis Microscopic (AO) on 11-02-2022 UA Bacteria 3+ /hpf Abnormal [facility] ([place]) Comment on above: Performed By: #### U AMICAO, PREGU, UA #### [address] [address] UA RBC 5-10 Abnormal None Seen [facility] ([place]) Comment on above: Performed By: #### U AMICAO, PREGU, UA #### [address] [address] UA Squam Epithelial LOADED Abnormal None Seen [facility] ([place]) Comment on above: Performed By: #### U AMICAO, PREGU, UA #### [address] [address] UA WBC LOADED Abnormal None Seen [facility] ([place]) Comment on above: Performed By: #### U AMICAO, PREGU, UA #### [address] [address] BMPon 11-02-2022 BUN/Creatinine Ratio 22 ratio Normal 7-27 [facility]) Comment on above: Performed By: #### M DW, ANEU, BMP, CBC, ADIFF, GFR #### [address] [address] Calcium [Mass/Vol] 8.1 mg/dL Low 8.4-10.2 [facility] ([place]) Comment on above: Performed By: #### M DW, ANEU, BMP, CBC, ADIFF, GFR #### [address] [address] Chloride [Moles/Vol] 100 mmol/L Normal 98-107 [facility]) Comment on above: Performed By: #### M DW, ANEU, BMP, CBC, ADIFF, GFR #### [address] [address] CO2 [Moles/Vol] 26 mmol/L Normal 22-29 [facility]) Comment on above: Performed By: #### M DW, ANEU, BMP, CBC, ADIFF, GFR #### [address] [address] Creatinine [Mass/Vol] 0.83 mg/dL Normal 0.55-1.02 [facility] ([place]) Comment on above: Performed By: #### M DW, ANEU, BMP, CBC, ADIFF, GFR #### [address] [address] Electrolyte Balance 10.0 mEq/L Normal 4.0-15.0 [facility] ([place]) Comment on above: Performed By: #### M DW, ANEU, BMP, CBC, ADIFF, GFR #### [address] [address] Glucose [Mass/Vol] 106 mg/dL High 70-105 [facility] ([place]) Comment on above: Performed By: #### M DW, ANEU, BMP, CBC, ADIFF, GFR #### [address] [address] Potassium [Moles/Vol] 3.7 mmol/L Normal 3.5-5.1 [facility]) Comment on above: Performed By: #### M DW, ANEU, BMP, CBC, ADIFF, GFR #### [address] [address] Sodium [Moles/Vol] 136 mmol/L Normal 136-145 [facility] ([place]) Comment on above: Performed By: #### M DW, ANEU, BMP, CBC, ADIFF, GFR #### [address] [address] Urea nitrogen [Mass/Vol] 18 mg/dL Normal 7-18 [facility] ([place]) Comment on above: Performed By: #### M DW, ANEU, BMP, CBC, ADIFF, GFR #### [address] [address] CBCon 11-02-2022 Erythrocyte distribution width (RBC) [Ratio] 13.7 % Normal 11.5-14.5 [facility]) Comment on above: Performed By: #### M DW, ANEU, BMP, CBC, ADIFF, GFR #### [address] [address] Hematocrit (Bld) [Volume fraction] 39.5 % Normal 37.0-47.0 [facility] ([place]) Comment on above: Performed By: #### M DW, ANEU, BMP, CBC, ADIFF, GFR #### [address] [address] Hgb 13.4 G/dL Normal 12.0-16.0 [facility] ([place]) Comment on above: Performed By: #### M DW, ANEU, BMP, CBC, ADIFF, GFR #### [address] [address] MCH (RBC) [Entitic mass] 28.4 pg Normal 27.0-31.2 [facility] ([place]) Comment on above: Performed By: #### M DW, ANEU, BMP, CBC, ADIFF, GFR #### [address] [address] MCHC 34.0 G/dL Normal 33.0-37.0 [facility] ([place]) Comment on above: Performed By: #### M DW, ANEU, BMP, CBC, ADIFF, GFR #### [address] [address] MCV (RBC) [Entitic vol] 83.5 fL Normal 80.0-94.0 [facility] ([place]) Comment on above: Performed By: #### M DW, ANEU, BMP, CBC, ADIFF, GFR #### [address] [address] Platelet 263 10 3/mcL Normal 130-400 [facility] ([place]) Comment on above: Performed By: #### M DW, ANEU, BMP, CBC, ADIFF, GFR #### [address] [address] Platelet mean volume (Bld) [Entitic vol] 7.7 fL Normal 7.4-10.4 [facility] ([place]) Comment on above: Performed By: #### M DW, ANEU, BMP, CBC, ADIFF, GFR #### [place] [address] RBC 4.74 10 6/mcL Normal 4.20-5.40 [facility] ([place]) Comment on above: Performed By: #### M DW, ANEU, BMP, CBC, ADIFF, GFR #### [address] [place], [place] [address] WBC 7.8 10 3/mcL Normal 4.6-10.8 [facility] ([place]) Comment on above: Performed By: #### M DW, ANEU, BMP, CBC, ADIFF, GFR #### [address] [place], [place] [address] CT ABDOMEN/PELVIS W/O CONTRA STon 11-02-2022 CT ABDOMEN/PELVIS W/O CONTRAST ORIGINAL EXAMINATION: CT OF THE ABDOMEN AND [...] Date: 11/02/2022 5:57:37 PM Ordering Provider: IAN Mckeon [facility] ([place]) LABORATORYOrdered By: Archie Chan on 11-02-2022 Appearance (U) Cloudy *ABN* (11/02/22 4:32 PM) Invalid Interpretation Code Clear AO Auto Urine SS Bacteria LM.HPF (Urine sed) [#/Area] 3 /[HPF] Invalid Interpretation Code AO Auto Urine SS Bilirubin Ql (U) Negative (11/02/22 4:32 PM) Invalid Interpretation Code Negative AO Auto Urine SS Color (U) Dark yellow Invalid Interpretation Code AO Auto Urine SS Glucose Test strip (U) [Mass/Vol] Negative Invalid Interpretation Code Negative AO Auto Urine SS HCG ( test) Ql Negative (11/02/22 4:32 PM) Invalid Interpretation Code AO Manual Urine SS Hemoglobin Auto test strip (U) [Mass/Vol] Large *ABN* (11/02/22 4:32 PM) Invalid Interpretation Code Negative AO Auto Urine SS Ketones Ql (U) Trace mg/dL Invalid Interpretation Code Negative AO Auto Urine SS test (u) int Not detected Invalid Interpretation Code AO Manual Urine SS UA Leuk Est Trace *ABN* (11/02/22 4:32 PM) Invalid Interpretation Code Negative AO Auto Urine SS UA Nitrite Negative (11/02/22 4:32 PM) Invalid Interpretation Code Negative AO Auto Urine SS UA pH 5.5 (11/02/22 4:32 PM) Invalid Interpretation Code 5.0 - 8.0 AO Auto Urine SS UA Protein 30 mg/dL Invalid Interpretation Code Negative AO Auto Urine SS UA RBC 5-10 /HPF Invalid Interpretation Code None Seen AO Auto Urine SS UA Spec Grav >=1.030 *ABN* (11/02/22 4:32 PM) Invalid Interpretation Code 1.015-1.025 AO Auto Urine SS UA Specimen Type Void (11/02/22 4:32 PM) Invalid Interpretation Code AO Auto Urine SS UA Squam Epithelial LOADED /HPF Invalid Interpretation Code None Seen AO Auto Urine SS UA Urobilinogen 0.2 E.U./dL Invalid Interpretation Code 0.2-1.0 AO Auto Urine SS WBC LM.HPF (Urine sed) [#/Area] LOADED /HPF Invalid Interpretation Code None Seen AO Auto Urine SS LABORATORYOrdered By: SYSTEM SYSTEM on 11-02-2022 Basophil, Absolute 0.0 103/mcL Invalid Interpretation Code 0.0 - 0.2 10^3/mcL AO Workflow SS Basophils/100 WBC (Bld) 0.2 % Invalid Interpretation Code 0.0 - 2.5 % AO Workflow SS Calcium [Mass/Vol] 8.1 mg/dL Invalid Interpretation Code 8.4 - 10.2 mg/dL AO ADM SS Chloride [Moles/Vol] 100 mmol/L Invalid Interpretation Code 98 - 107 mmol/L AO ADM SS CO2 [Moles/Vol] 26 mmol/L Invalid Interpretation Code 22 - 29 mmol/L AO ADM SS Creatinine [Mass/Vol] 0.83 mg/dL Invalid Interpretation Code 0.55 - 1.02 mg/dL AO ADM SS Electrolyte Balance 10.0 mEq/L Invalid Interpretation Code 4.0 - 15.0 mEq/L AO ADM SS Eosinophil, Absolute 0.1 103/mcL Invalid Interpretation Code 0.0 - 0.4 10^3/mcL AO Workflow SS Eosinophils/100 WBC (Bld) 0.7 % Invalid Interpretation Code 0.0 - 7.0 % AO Workflow SS Erythrocyte distribution width (RBC) [Ratio] 13.7 % Invalid Interpretation Code 11.5 - 14.5 % AO Workflow SS GFR/1.73 sq M.predicted among blacks MDRD (S/P/Bld) [Vol rate/Area] 99 ml/min/1.73sqm Invalid Interpretation Code AO Chemistry S Comment on above: Interpretive Data: GFR Population mean for , Non- Americans Ages 20-29 = 116 mL/min/1.73 sq.m. Ages 30-39 = 107 mL/min/1.73 sq.m. Ages 40-49 = 99 mL/min/1.73 sq.m. Ages 50-59 = 93 mL/min/1.73 sq.m. Ages 60-69 = 85 mL/min/1.73 sq.m. Ages 70+ = 75 mL/min/1.73 sq.m. Chronic Kidney Disease: Less than 60 mL/min/1.73 square meters End Stage Renal Disease: Less than 15 mL/min/1.73 square meters GFR/1.73 sq M.predicted among non-blacks MDRD (S/P/Bld) [Vol rate/Area] 81 ml/min/1.73sqm Invalid Interpretation Code AO Chemistry S Comment on above: Interpretive Data: GFR Population mean for , Non- Americans Ages 20-29 = 116 mL/min/1.73 sq.m. Ages 30-39 = 107 mL/min/1.73 sq.m. Ages 40-49 = 99 mL/min/1.73 sq.m. Ages 50-59 = 93 mL/min/1.73 sq.m. Ages 60-69 = 85 mL/min/1.73 sq.m. Ages 70+ = 75 mL/min/1.73 sq.m. Chronic Kidney Disease: Less than 60 mL/min/1.73 square meters End Stage Renal Disease: Less than 15 mL/min/1.73 square meters Glucose [Mass/Vol] 106 mg/dL Invalid Interpretation Code 70 - 105 mg/dL AO ADM SS Hematocrit (Bld) [Volume fraction] 39.5 % Invalid Interpretation Code 37.0 - 47.0 % AO Workflow SS Hemoglobin (Bld) [Mass/Vol] 13.4 G/dL Invalid Interpretation Code 12.0 - 16.0 G/dL AO Workflow SS Lymphocyte, Absolute 0.9 103/mcL Invalid Interpretation Code 0.8 - 3.9 10^3/mcL AO Workflow SS Lymphocytes/100 WBC (Bld) 11.8 % Invalid Interpretation Code 10.0 - 50.0 % AO Workflow SS MCH (RBC) [Entitic mass] 28.4 pg Invalid Interpretation Code 27.0 - 31.2 pg AO Workflow SS MCHC 34.0 G/dL Invalid Interpretation Code 33.0 - 37.0 G/dL AO Workflow SS MCV (RBC) [Entitic vol] 83.5 fL Invalid Interpretation Code 80.0 - 94.0 fL AO Workflow SS Monocyte distribution width Auto (Bld) [Entitic vol] 18.47 1 Invalid Interpretation Code 0.00 - 20.00 AO Workflow SS Comment on above: Result Comment: For ED adult patients suspected of sepsis, MDW<=20.0 does not rule out sepsis or risk of sepsis Monocyte, Absolute 0.4 103/mcL Invalid Interpretation Code 0.2 - 1.0 10^3/mcL AO Workflow SS Monocytes/100 WBC (Bld) 5.1 % Invalid Interpretation Code 1.7 - 13.0 % AO Workflow SS Neutrophil, Absolute 6.4 103/mcL Invalid Interpretation Code 2.9 - 6.2 10^3/mcL AO Workflow SS Neutrophils/100 WBC (Bld) 82.2 % Invalid Interpretation Code 37.0 - 80.0 % AO Workflow SS Platelet mean volume (Bld) [Entitic vol] 7.7 fL Invalid Interpretation Code 7.4 - 10.4 fL AO Workflow SS Platelets (Bld) [#/Vol] 263 103/mcL Invalid Interpretation Code 130 - 400 10^3/mcL AO Workflow SS Potassium [Moles/Vol] 3.7 mmol/L Invalid Interpretation Code 3.5 - 5.1 mmol/L AO ADM SS RBC (Bld) [#/Vol] 4.74 106/mcL Invalid Interpretation Code 4.20 - 5.40 10^6/mcL AO Workflow SS Sodium [Moles/Vol] 136 mmol/L Invalid Interpretation Code 136 - 145 mmol/L AO ADM SS Urea nitrogen [Mass/Vol] 18 mg/dL Invalid Interpretation Code 7 - 18 mg/dL AO ADM SS Urea nitrogen/Creatinin e [Mass ratio] 22 ratio Invalid Interpretation Code 7 - 27 ratio AO ADM SS WBC (Bld) [#/Vol] 7.8 103/mcL Invalid Interpretation Code 4.6 - 10.8 10^3/mcL AO Workflow SS PREGUon 11-02-2022 HCG ( test) Ql (U) Negative Normal [facility] ([place]) Comment on above: Performed By: #### U KUMAR PREGU, UA #### Debbie [address] [address] test (u) int Not detected Invalid Interpretation Code [facility] ([place]) Comment on above: Performed By: #### U AMICAO PREGU, UA #### Debbie [address] [address] UAon 11-02-2022 Color (U) Dark yellow Normal [facility] ([place]) Comment on above: Performed By: #### U AMICAO PREGU, UA #### Debbie [address] [address] Glucose (U) [Mass/Vol] Negative Normal Negative [facility] ([place]) Comment on above: Performed By: #### U AMICAO PREGU, UA #### Debbie [address] [address] Ketones Ql (U) Trace Abnormal Negative [facility] ([place]) Comment on above: Performed By: #### U AMICAO, PREGU, UA #### Debbie [address] [address] UA Appear Cloudy Abnormal Clear [facility] ([place]) Comment on above: Performed By: #### U AMICAO, PREGU, UA #### Debbie [address] [address] UA Blood Large Abnormal Negative [facility] ([place]) Comment on above: Performed By: #### U AMICAO, PREGU, UA #### [place] [address] UA Leuk Est Trace Abnormal Negative [facility] ([place]) Comment on above: Performed By: #### U AMICAO, PREGU, UA #### [place] [address] UA Nitrite Negative Normal Negative [facility] ([place]) Comment on above: Performed By: #### U AMICAO, PREGU, UA #### [address] [address] UA pH 5.5 Normal 5.0 - 8.0 [facility] ([place]) Comment on above: Performed By: #### U AMICAO, PREGU, UA #### [address] [address] UA Protein 30 mg/dL Normal Negative [facility] ([place]) Comment on above: Performed By: #### U AMICAO, PREGU, UA #### [address] [address] UA Spec Grav >=1.030 Abnormal 1.015-1.025 [facility] ([place]) Comment on above: Performed By: #### U AMICAO, PREGU, UA #### Debbie [address] [address] UA Specimen Type Void Normal [facility] ([place]) Comment on above: Performed By: #### U AMICAO, PREGU, UA #### [address] [address] [place], [place] [address] UA Urobilinogen 0.2 E.U./dL Normal 0.2-1.0 [facility] ([place]) Comment on above: Performed By: #### U AMICATerri PREGU, UA #### De[address] [place], [place] [address] Urobilinogen (U) [Mass/Vol] Negative Normal Negative [facility] ([place]) Comment on above: Performed By: #### U DEENACATerri PREGU, UA #### Debbie [address] [place], [place] [address] GROUP A STREPTOCOCCUS BY PCR on 09-13-2022 S. pyogenes DNA JOEL+probe Ql (Throat) Detected Abnormal Not detected [facility] RAPID GROUP A STREP RFLX TO PCRon 09-13-2022 S. pyogenes Ag Ql (Throat) Negative Negative Group A Strep Screen [facility] RAPID GROUP A STREP RFLX TO PCRon 07-06-2022 S. pyogenes Ag Ql (Throat) Positive Abnormal Negative Group A Strep Screen [facility] OBSTETRIC ULTRASOUND WHIon 0 05-19-2021 [facility] URINE OB DIP B/Oon 2 Glucose Ql (U) Negative Neg mg/dL [facility] Protein.monoclonal (U) [Mass/Vol] Negative Neg mg/dL [facility] OBSTETRIC ULTRASOUND WHIon 0 05-04-2021 Group Segment Consultant Indication Malposition of fetus, single or unspecified fetus Impression The patient presents for evaluation of position in the setting of malposition of fetus, single or unspecified fetus . 1. Single, live, intrauterine in a vertex presentation. 2. Normal amniotic fluid. CORY 12.4 cm. 3. The placenta is posterior without evidence of a previa. 4. FHR 140 BPM. 5. Incidental BPP 09/14. 6. Probable uterine fibroid. 7. biometry not performed due to short scan interval. Recommendations Follow-up as clinically indicated Maternal Assessment Height 155 cm Height (ft) 5 ft Height (in) 1 in Physical Exam Initial weight (lb) 172 lb Initial BMI 32.50 kg/m Growth Overview Exam date GA BPD (mm) HC (mm) AC (mm) FL (mm) HL (mm) EFW (g) 01/12/2021 20w 6d 50.7 69% 188.3 53% 169.2 77% 37.5 78% 34.0 72% 454 89% 04/14/2021 34w 0d 84.8 52% 309.9 29% 321.5 95% 63.2 12% 2,528 68% Method Transabdominal ultrasound examination. View: Sufficient Cash . Number of fetuses: 1 Dating GA by prior assessment 36 w + 6 d BRODERICK by prior assessment: 05/26/2021 Assigned: based on stated BRODERICK, selected on 01/12/2021 Assigned GA 36 w + 6 d Assigned BRODERICK: 05/26/2021 General Evaluation Cardiac activity present. FHR 140 bpm. movements: present. Presentation: cephalic Placenta: posterior Amniotic fluid: MVP 4.1 cm. CORY 12.4 cm. Q1 4.1 cm, Q2 1.8 cm, Q3 4.0 cm, Q4 2.6 cm Maternal Structures Uterus / Cervix Uterine fibroid D1 53 mm Uterine fibroid D2 39 mm Uterine fibroid D3 25 mm Uterine fibroid mean 39.2 mm Uterine fibroid vol 27.485 cm Other: There is a hypoechoic mass within the myometrium. This most likely represents a uterine fibroid. Performed By: Jacqueline Valiente RDMS Read By: Samy Delaney M.D. [facility] UA DIP, URINE (POC)on 2021 BILIRUBIN UA (POCT) Negative Negative [facility] CLARITY UA (POCT) Clear [facility] COLOR UA (POCT) Yellow [facility] GLUCOSE UA (POCT) Negative Negative mg/dL Lauri [facility] HEMOGLOBIN/BLOOD UA (POCT) Trace-intact Abnormal Negative [facility] KETONE UA (POCT) Negative Negative mg/dL [facility] LEUKOCYTES UA (POCT) Negative Negative [facility] NITRITE UA (POCT) Negative Negative [facility] PH UA (POCT) 6.0 4.5 - 8.0 [facility] Protein Ql (U) Negative Negative mg/dL [facility] SPECIFIC GRAVITY UA (POCT) 1.025 1.005 - 1.030 [facility] UROBILINOGEN UA (POCT) 0.2 E.U./dL Normal E.U./dL [facility] [place] 04-16-2021 EMERGENCY PHYSICIAN REPORT This is a preliminary report only, as the practitioner review and authentication has not occurred. [facility]ORDS : FlexChartData Event Time: 04/16/2021 11:25 Status: Signed [facility] Cheli Jordan [[id number]] Mid-Level Chart (V2b) / 1995 Chart created at 04/16/2021 11:20 by Carmina Bear Chart closed at 04/16/2021 13:49 Entry in Emergency Department at 04/16/2021 10:24, departure at 04/16/2021 14:20 Patient Name: Cheli Jordan Record Number: [id number] Date: 04/16/2021 11:20 Entered Department at: 04/16/2021 10:24 Patient Seen at: 04/16/2021 11:10 Historian: Patient PCP: Cheli Dillard,OB Chief Complaint:R leg pain behind knee and down for the last 2 weeks. Denies injury. Pt is 34 weeks . Nursing triage/initial assessment reviewed and confirmed and Initial Vital Signs reviewed. Temperature: 98.1 F (36.7 C). Pulse: 95. Respiratory Rate: 16. Blood-pressure: 115/59. Oxygen Saturation: 98%. History of Present Illness: 26-Year-old female presenting to emergency department for evaluation of right leg pain. Patient is 34 weeks . Over the last 2 weeks she has noticed some slight pain and redness just behind her right knee. She went to [facility] today was sent here for further evaluation. She denies any fevers or chills. [facility] PATIENT NAME: CHELI JORDAN [address] [facility] [address] MEDICAL REC #: [id number] [place] [address] EMERGENCY DEPARTMENT REPORT EMERGENCY DEPARTMENT PHYSICIAN No warmth to her leg. No history of DVT or PE. No chest pain or shortness of breath. No other pertinent HPI. Review of Systems. All other systems reviewed and negative.. Past History, Medications, Allergies, Social History and Family History reviewed in nurses note. Medications: Reviewed RN Note. Allergies: Reviewed RN Note Social History: Reviewed RN Note. Family History: Reviewed RN Note Physical Examination: General: Alert and Well Developed Neck: No Meningismus and Supple Respiratory: No Resp Distress and Normal Breath Sounds Cardio-Vascular: No murmur, No rub and RRR Abdomen: Non-tender and Soft Extremity: There is a small area of erythema noted to right lateral/posterior leg just below knee with associated tenderness. Slight warmth to the area. No bony tenderness to right leg. No warmth or erythema of right knee joint, no signs of septic arthritis. Neurological: Alert, Oriented X3 and No Gross Weakness Skin: Warm and Dry Psychological: Mood/Affect Normal and Normal Memory/Judgment Medical Decision Making This is a 26 year old female presenting to ED for evaluation of right leg pain. Patient is 34 weeks , has noticed a small area of redness just distal to right knee. Was sent here to rule out DVT. she is non-toxic appearing and in no immediate distress. Vitals are stable on presentation. On exam patient does have a small area of erythema just below right knee. No evidence of septic arthritis. Venous duplex with no evidence of DVT or SVT. I will place patient on a course of Keflex to cover for possible early developing cellulitis. She has no fevers or chills or signs of sepsis. She has been advised to follow-up with her OB in about 4 days and certainly return at anytime with new or worsening symptoms. [facility] PATIENT NAME: CHELI JORDAN [address] [facility] MED[facility] REC #: [id number] [place] [address] EMERGENCY DEPARTMENT REPORT EMERGENCY DEPARTMENT PHYSICIAN Patient is agreeable to this plan and is stable for discharge. Additional Information: Discussed Results, Diagnosis and Follow-Up with Patient. Clinical Impression: 1. Right mid leg cellulitis Disposition: Discharged *Home. Condition: Improved Direct patient care supervision and electronic documentation review by Maurice France on 04/16/2021 18:02. : FlexChartData Event Time: 04/16/2021 14:45 Status: Signed [facility] Cheli Jordan [[id number]] Attending Physician 1995 Chart (V2b) Chart created at 04/16/2021 14:10 by Samy Encinas Chart closed at 04/16/2021 14:10 Entry in Emergency Department at 04/16/2021 10:24, departure at 04/16/2021 14:20 Patient Name: Cheli Jordan Record Number: [id number] Date: 04/16/2021 14:10 Entered Department at: 04/16/2021 10:24 Patient Seen at: 04/16/2021 11:10 PCP: Cheli Dillard,OB Chief Complaint:R leg pain behind knee and down for the last 2 weeks. Denies injury. Pt is 34 weeks [facility] PATIENT NAME: MILY JORDANJUDITH Dumont [address] [facility] MEDICAL REC #: [id number] [place], [place] [address] (more content not included)... Normal [facility] 04-16-2021 [facility] RE[facility] DATE OF SERVICE: 11/2021 CHIEF COMPLAINT: Right leg pain. HISTORY OF PRESENT ILLNESS: The patient is a 26-year-old female who presents today with a 2-week history of right leg pain. She states that she has had no injury to the area, but all of a sudden she started to have pain into the medial aspect of her right knee and extends into the back of her knee. It seems to have gone away, but then she got hit by a dog who was running through her legs, and the pain had increased again. It has been consistent since. It is a dull ache whenever she is resting, but then when she moves it or she puts pressure, it raises up to a 7-8/10. She is currently 34 weeks and was wanting to come in in order to be seen for this. She has tried taking Tylenol, which has had no relief for her. PAST MEDICAL HISTORY: Anemia, asthma, pneumonia. PAST SURGICAL HISTORY: ENT. CURRENT MEDICATIONS: Reviewed and considered. ALLERGIES: No known drug allergies. No allergies to other sources such as bees or [facility] PATIENT NAME: CHELI JORDAN [address] [facility] [address] MEDICAL REC #: [id number] [place] [address] [facility] REPORT [facility]IC[facility] foods. SOCIAL HISTORY: Denies alcohol or tobacco use. REVIEW OF SYSTEMS: General: Denies fever, chills, body aches. Respiratory: Denies cough, wheezing, shortness of breath. Cardiovascular: Denies dyspnea, chest pain, palpitations. Musculoskeletal: Admits to right knee pain. Denies joint stiffness, swelling, loss of function, or injury. Admits to redness. PHYSICAL EXAMINATION: Vital signs: Blood pressure 106/57, pulse 94, respiratory rate 17, temperature 98.1, pulse oximetry on room air 98%. General: The patient is alert and oriented x3, appears to be in no acute distress. Musculoskeletal: No tenderness to palpation of the patella, femur, tibia, or fibula. There is tenderness into the medial aspect of the leg hat goes back into the popliteal space. It is red and slightly warm. I do not notice any swelling, but pain is reproduced with flexion and extension of the knee. No pain with valgus or varus stretch. Negative Serena's, anterior/posterior drawer. Good popliteal and dorsalis pedis pulse. Just slight tenderness into the upper calf upon palpation, but no pain on palpating the medial [facility] PATIENT NAME: CHELI JORDAN Tim [address] [facility] [address] MEDICAL REC #: [id number] [place] [address] [facility] REPORT [facility] PH[facility]IC[facility] aspect of the gastrocnemius or the inferior aspect. Negative Merissa's sign bilaterally. DIAGNOSIS: Right knee pain and erythema. PLAN: Based off the patient being 34 weeks and where the pain and these symptoms she is having, I cannot fully rule out a blood clot here. I would want that to be ruled out before we make an official diagnosis. She might have also strained her knee, but I do recommend her going to the hospital to get this checked out further. She agrees. She is going to go to [facility]. I spoke with Shola in triage at o'clock, and they are awaiting the patient's arrival. She is going down by private vehicle with her significant other. The patient agrees and understands the patient at this time. The patient was stable upon discharge from [facility]. VIC Randolph/[id number] [facility] PATIENT NAME: DORETHA JORDANYUDITH Dumont [address] [facility] [address] MEDICAL REC #: [id number] [place] [address] [facility] RE[facility]IC[facility] File#: [id number] END OF DOCUMENT / CHANGE LOG FOLLOWS Last Edited By Elec. Signed By Toyin Cedillo PAC #[email or web address] Toyin Cedillo PAC #[email or web address] on 04/20/2021 11:08 ET on 04/20/2021 11:08 ET Revision Number - 2 Verified/Reviewed by 04/20/21 [id number] [facility] PATIENT NAME: MILY JORDANJUDITH Dumont [address] [facility] [address] MEDICAL REC #: [id number] [place] [address] [facility] RE[facility] VENOUS DUPLEX REPORT Normal [facility] VASCULAR REPORT - Patient: CHELI JORDAN Tim Account [id number] Ordering Phy: MR: [id number] Reason for Visit: R.LEG PAIN/[facility] Date of Service 04/16/21 Reading Physician: Torito Miller MD [id number] SINGLE LE VENOUS DUPLEX SCAN [place] [id number] [facility] [address] [place], [place] [address] Non- Invasive Vascular Laboratory Lower Extremity Venous Duplex __ Name: DORETHA JORDANYUDITH Dumont Study Date: 04/16/2021 11:56 AM Patient Location: [facility] : 1995 Gender: Female Age: 26 yrs Ethnicity: [place] Accession No. [id number] No. [id number] Order No. [id number] Interpretation Summary No evidence of deep vein thrombosis (DVT) or superficial vein thrombosis in the right lower extremity. Procedure: CC: Samy Encinas DO [facility] PATIENT NAME: CHELI JORDAN [address] [place] [address] Dr. [address] MEDICAL REC #: [id number] [place] [address] ADMIT DATE: DISCHARGE DATE: 04/16/21 VENOUS DUPLEX REPORT ATTENDING PHY: Samy Encinas DO Electronically Signed by: Torito Miller MD Esign Date: 04/16/21 VASCULAR REPORT - Patient: DORETHA JORDANYUDITH Dumont Account [id number] Ordering Phy: MR: [id number] Reason for Visit: R.LEG PAIN/[facility] Date of Service 04/16/21 Reading Physician: Torito Miller MD Venous Duplex completed with the patient in the Reverse Trendelenburg position. Right Findings Left Findings Veins Spont PhasicAugmentPulsatilReflux Veins Spont PhasicAugmentPulsatilReflux CFV. Normal.Normal.Normal. No. CFV. Normal.Normal.Normal. No. FV. Normal.Normal.Normal. No. POP. Normal.Normal.Normal. No. GSV. Normal.Normal.Normal. No. Compression Compression Rt. CFV: Lt. CFV: Completely Completely Compressible. Compressible. Rt. DFV: Completely Compressible. Rt. FV Prox: Completely Compressible. Rt. FV Mid: Competely Compressible. Rt. FV Dist: Completely Compressible. Rt. POP: Completely Compressible. Rt. Ant Tib: Completely Compressible. Rt. PTV: Completely CC: Samy Encinas DO [facility] PATIENT NAME: CHELI JORDAN [address] [facility] [address] [facility] REC #: [id number] [place] [address] ADMIT DATE: DISCHARGE DATE: 04/16/21 VENOUS DUPLEX REPORT ATTENDING PHY: Samy Encinas DO Electronically Signed by: Torito Miller MD Esign Date: 04/16/21 VASCULAR REPORT - Patient: CHELI JORDAN Account [id number] Ordering Phy: MR: [id number] Reason for Visit: R.LEG PAIN/[facility] Date of Service 04/16/21 Reading Physician: Torito Miller MD Compressible. Rt. PeroV: Completely Compressible. Rt. Gastroc: Completely Compressible. Rt. Soleal: Completely Compressible. Rt. GSV: Completely Compressible. Rt. SSV: Completely Compressible. Right Findings The right lower extremity was evaluated with grayscale, color and spectral Doppler. The level of the calf to the level of the common femoral vein shows compressibility throughout the deep and superficial venous system. Color and spectral Doppler waveform analysis of the deep and superficial venous system demonstrates spontaneous, phasic and augmented flow with no evidence of reflux in the deep or superficial venous system,. These findings are consistent with the absence of deep vein thrombosis (DVT) or superficial vein thrombosis. Left Findings Contralateral common femoral vein visualized for comparison and is normal with spontaneous, phasic venous flow. __ Electronically signed by: CC: Samy Encinas DO [facility] PATIENT NAME: TERRYCHELI [address] [facility] [address] MEDICAL REC #: [id number] [place] [address] ADMIT DATE: DISCHARGE DATE: 04/16/21 VENOUS DUPLEX REPORT ATTENDING PHY: Samy Encinas DO Electronically Signed by: Torito Miller MD Esign Date: 04/16/21 VASCULAR REPORT - Patient: DORETHA JORDANYUDITH Dumont Account [id number] Ordering Phy: MR: [id number] Reason for Visit: R.LEG PAIN/[facility]IAGE Date of Service 04/16/21 Reading Physician: MD Torito Varghese MD 04/16/2021 09:38 PM Ordering Physician: Carmina Bear Performed By: Kimberly Villarreal RVT CC: Carmina Bear CC: Samy Encinas DO [facility] PATIENT NAME: CHELI JORDAN [id number] (more content not included)... Normal [facility] [place] Vital Signs Date Time Vital Sign Value Performing Clinician Facility 12-22-2023 10:35-0500 Body mass index (BMI) [Ratio] 37.15 kg/m2 Lg Munson MD Work Phone: [facility] 12-22-2023 10:35-0500 Body weight 89.18 kg Lg Munson MD Work Phone: [facility] 12-22-2023 10:35-0500 Diastolic blood pressure 70 mm[Hg] Lg Munson MD Work Phone: [facility] 12-22-2023 10:35-0500 Systolic blood pressure 118 mm[Hg] Lg Munson MD Work Phone: [facility] 12-15-2023 10:30-0500 Body mass index (BMI) [Ratio] 36.84 kg/m2 Harrison Cam MD Work Phone: [facility] 12-15-2023 10:30-0500 Body weight 88.45 kg Harrison Cam MD Work Phone: [facility] 12-15-2023 10:30-0500 Diastolic blood pressure 53 mm[Hg] Harrison Cam MD Work Phone: [facility] 12-15-2023 10:30-0500 Systolic blood pressure 89 mm[Hg] Harrison Cam MD Work Phone: [facility] 12-15-2023 09:00-0500 Body temperature 97.5 [degF] Treatment Wstr Work Phone: [facility] 12-15-2023 09:00-0500 Diastolic blood pressure 71 mm[Hg] Treatment Wstr Work Phone: [facility] 12-15-2023 09:00-0500 Heart rate 102 /min Treatment Wstr Work Phone: [facility] 12-15-2023 09:00-0500 Respiratory rate 20 /min Treatment Wstr Work Phone: [facility] 12-15-2023 09:00-0500 SaO2% (BldA) [Mass fraction] 98 % Treatment Wstr Work Phone: [facility] 12-15-2023 09:00-0500 Systolic blood pressure 111 mm[Hg] Treatment Wstr Work Phone: [facility] 12-08-2023 14:06-0400 Body mass index (BMI) [Ratio] 36.28 kg/m2 Lg Munson MD Work Phone: [facility] 12-08-2023 14:06-0400 Body weight 87.09 kg Lg Munson MD Work Phone: [facility] 12-08-2023 14:06-0400 Diastolic blood pressure 60 mm[Hg] Lg Munson MD Work Phone: [facility] 12-08-2023 14:06-0400 Systolic blood pressure 106 mm[Hg] Lg Munson MD Work Phone: [facility] 12-08-2023 12:01-0400 Body temperature 97.2 [degF] Treatment Wstr Work Phone: [facility] 12-08-2023 12:01-0400 Diastolic blood pressure 74 mm[Hg] Treatment Wstr Work Phone: [facility] 12-08-2023 12:01-0400 Heart rate 101 /min Treatment Wstr Work Phone: [facility] 12-08-2023 12:01-0400 Respiratory rate 18 /min Treatment Wstr Work Phone: [facility] 12-08-2023 12:01-0400 SaO2% (BldA) [Mass fraction] 97 % Treatment Wstr Work Phone: [facility] 12-08-2023 12:01-0400 Systolic blood pressure 110 mm[Hg] Treatment Wstr Work Phone: [facility] 11-24-2023 13:50-0400 Body mass index (BMI) [Ratio] 36.28 kg/m2 Harrison Cam MD Work Phone: [facility] 11-24-2023 13:50-0400 Body weight 87.09 kg Harrison Cam MD Work Phone: [facility] 11-24-2023 13:50-0400 Diastolic blood pressure 68 mm[Hg] Harrison Cam MD Work Phone: [facility] 11-24-2023 13:50-0400 Systolic blood pressure 118 mm[Hg] Harrison Cam MD Work Phone: [facility] 11-10-2023 12:00-0400 Body temperature 97.39 [degF] Treatment Wstr Work Phone: [facility] 11-10-2023 12:00-0400 Diastolic blood pressure 70 mm[Hg] Treatment Wstr Work Phone: [facility] 11-10-2023 12:00-0400 Heart rate 103 /min Treatment Wstr Work Phone: [facility] 11-10-2023 12:00-0400 Systolic blood pressure 111 mm[Hg] Treatment Wstr Work Phone: [facility] 11-10-2023 11:51-0400 Body mass index (BMI) [Ratio] 35.9 kg/m2 Harrison Cam MD Work Phone: [facility] 11-10-2023 11:51-0400 Body weight 86.18 kg Harrison Cam MD Work Phone: [facility] 11-10-2023 11:51-0400 Diastolic blood pressure 68 mm[Hg] Harrison Cam MD Work Phone: [facility] 11-10-2023 11:51-0400 Systolic blood pressure 110 mm[Hg] Harrison Cam MD Work Phone: [facility] 11-08-2023 15:22-0400 Body temperature 97.9 [degF] Treatment Wstr Work Phone: [facility] 11-08-2023 15:22-0400 Diastolic blood pressure 70 mm[Hg] Treatment Wstr Work Phone: [facility] 11-08-2023 15:22-0400 Heart rate 93 /min Treatment Wstr Work Phone: [facility] 11-08-2023 15:22-0400 Respiratory rate 18 /min Treatment Wstr Work Phone: [facility] 11-08-2023 15:22-0400 SaO2% (BldA) [Mass fraction] 98 % Treatment Wstr Work Phone: [facility] 11-08-2023 15:22-0400 Systolic blood pressure 106 mm[Hg] Treatment Wstr Work Phone: [facility] 11-03-2023 09:58-0400 Body temperature 97.39 [degF] Treatment Wstr Work Phone: [facility] 11-03-2023 09:58-0400 Diastolic blood pressure 66 mm[Hg] Treatment Wstr Work Phone: [facility] 11-03-2023 09:58-0400 Heart rate 92 /min Treatment Wstr Work Phone: [facility] 11-03-2023 09:58-0400 SaO2% (BldA) [Mass fraction] 98 % Treatment Wstr Work Phone: [facility] 11-03-2023 09:58-0400 Systolic blood pressure 105 mm[Hg] Treatment Wstr Work Phone: [facility] 10-26-2023 09:23-0400 Body mass index (BMI) [Ratio] 35.33 kg/m2 Linh George MD Work Phone: [facility] 10-26-2023 09:23-0400 Body weight 84.82 kg Linh George MD Work Phone: [facility] 10-26-2023 09:23-0400 Diastolic blood pressure 60 mm[Hg] Linh George MD Work Phone: [facility] 10-26-2023 09:23-0400 Systolic blood pressure 104 mm[Hg] Linh George MD Work Phone: [facility] 10-13-2023 15:02-0400 Body mass index (BMI) [Ratio] 35.71 kg/m2 Melony Plotts [employer] Work Phone: [facility] 10-13-2023 15:02-0400 Body weight 85.73 kg Melony Plotts [employer]CN[employer] Work Phone: [facility] 10-13-2023 15:02-0400 Diastolic blood pressure 70 mm[Hg] Melony Plotts [employer]CN[employer] Work Phone: [facility] 10-13-2023 15:02-0400 Systolic blood pressure 116 mm[Hg] Melony Plotts [employer]CN[employer] Work Phone: [facility] 09-15-2023 11:23-0400 Body mass index (BMI) [Ratio] 34.54 kg/m2 Lg Munson MD Work Phone: [facility] 09-15-2023 11:23-0400 Body weight 82.92 kg Lg Munson MD Work Phone: [facility] 09-15-2023 11:23-0400 Diastolic blood pressure 64 mm[Hg] Lg Munson MD Work Phone: [facility] 09-15-2023 11:23-0400 Systolic blood pressure 110 mm[Hg] Lg Munson MD Work Phone: [facility] 08-16-2023 14:38-0400 Body mass index (BMI) [Ratio] 33.75 kg/m2 Harrison Cam MD Work Phone: [facility] 08-16-2023 14:38-0400 Body weight 81.01 kg Harrison Cam MD Work Phone: [facility] 08-16-2023 14:38-0400 Diastolic blood pressure 70 mm[Hg] Harrison Cam MD Work Phone: [facility] 08-16-2023 14:38-0400 Systolic blood pressure 110 mm[Hg] Harrison Cam MD Work Phone: [facility] 07-29-2023 08:49-0400 Body mass index (BMI) [Ratio] 33.63 kg/m2 Harrison Cam MD Work Phone: [facility] 07-29-2023 08:49-0400 Body weight 80.74 kg Harrison Cam MD Work Phone: [facility] 07-29-2023 08:49-0400 Diastolic blood pressure 60 mm[Hg] Harrison Cam MD Work Phone: [facility] 07-29-2023 08:49-0400 Systolic blood pressure 104 mm[Hg] Harrison Cam MD Work Phone: [facility] 07-05-2023 14:05-0400 Body mass index (BMI) [Ratio] 33.78 kg/m2 Harrison Cam MD Work Phone: [facility] 07-05-2023 14:05-0400 Body weight 81.1 kg Harrison Cam MD Work Phone: [facility] 07-05-2023 14:05-0400 Diastolic blood pressure 70 mm[Hg] Harrison Cam MD Work Phone: [facility] 07-05-2023 14:05-0400 Systolic blood pressure 110 mm[Hg] Harrison Cam MD Work Phone: [facility] 06-27-2023 22:50-0400 Diastolic blood pressure 78 mm[Hg] AVIS SANTOS MD [facility] 06-27-2023 22:50-0400 Heart rate 79 /min AVIS SANTOS MD [facility] 06-27-2023 22:50-0400 Respiratory rate 16 /min AVIS SANTOS MD [facility] 06-27-2023 22:50-0400 Systolic blood pressure 112 mm[Hg] AVIS SANTOS MD [facility] 06-27-2023 21:49-0400 Diastolic Blood Pressure Non-Invasive 70 mm[Hg] AVIS SANTOS MD [facility] 06-27-2023 21:49-0400 Heart rate 72 /min AVIS SANTOS MD [facility] 06-27-2023 21:49-0400 Mean blood pressure 82 mm[Hg] AVIS SANTOS MD [facility] 06-27-2023 21:49-0400 Respiratory rate 18 /min AVIS SANTOS MD [facility] 06-27-2023 21:49-0400 Systolic Blood Pressure Non-Invasive 108 mm[Hg] AVIS SANTOS MD [facility] 06-27-2023 18:46-0400 Body height 155 cm AVIS SANTOS MD [facility] 06-27-2023 18:46-0400 Body temperature 97.88 [degF] AVIS SANTOS MD [facility] 06-27-2023 18:46-0400 Body weight 84 kg AVIS SANTOS MD [facility] 06-27-2023 18:46-0400 Diastolic Blood Pressure Non-Invasive 77 mm[Hg] AVIS SANTOS MD [facility] 06-27-2023 18:46-0400 Heart rate 98 /min AVIS SANTOS MD [facility] 06-27-2023 18:46-0400 Respiratory rate 18 /min AVIS SANTOS MD [facility] 06-27-2023 18:46-0400 Systolic Blood Pressure Non-Invasive 119 mm[Hg] AVIS SANTOS MD [facility] 06-13-2023 16:12-0400 Body mass index (BMI) [Ratio] 34.92 kg/m2 Nate Aviles APRN.CNP Work Phone: [facility] 06-13-2023 16:12-0400 Body temperature 98.01 [degF] Nate Aviles APRN.PROFESSOR OF PATHOLOGY Work Phone: [facility] 06-13-2023 16:12-0400 Body weight 83.83 kg Nate Aviles APRN.PROFESSOR OF PATHOLOGY Work Phone: [facility] 06-13-2023 16:12-0400 Diastolic blood pressure 79 mm[Hg] Nate Aviles APRN.PROFESSOR OF PATHOLOGY Work Phone: [facility] 06-13-2023 16:12-0400 Heart rate 95 /min Nate Aviles APRN.PROFESSOR OF PATHOLOGY Work Phone: [facility] 06-13-2023 16:12-0400 Respiratory rate 17 /min Nate Aviles APRN.PROFESSOR OF PATHOLOGY Work Phone: [facility] 06-13-2023 16:12-0400 SaO2% (BldA) [Mass fraction] 99 % aNte Aviles APRN.PROFESSOR OF PATHOLOGY Work Phone: [facility] 06-13-2023 16:12-0400 Systolic blood pressure 119 mm[Hg] Nate Aviles APRN.PROFESSOR OF PATHOLOGY Work Phone: [facility] 06-06-2023 08:41-0400 Body height 154.9 cm Melony Pineda APRN.CNM Work Phone: [facility] 06-06-2023 08:41-0400 Body mass index (BMI) [Ratio] 34.62 kg/m2 Melony Pineda THEATRE ARTS PROFESSOR.CNM Work Phone: [facility] 06-06-2023 08:41-0400 Body weight 83.1 kg Melony Pineda THEATRE ARTS PROFESSOR.CNM Work Phone: [facility] 06-06-2023 08:41-0400 Diastolic blood pressure 64 mm[Hg] Melony Pineda THEATRE ARTS PROFESSOR.CNM Work Phone: [facility] 06-06-2023 08:41-0400 Systolic blood pressure 100 mm[Hg] Melony Pineda THEATRE ARTS PROFESSOR.CNM Work Phone: [facility] 04-03-2023 14:02-0500 Body temperature 97.59 [degF] Arelis Roberto PA-C Work Phone: [facility] 04-03-2023 14:02-0500 Body weight 84.73 kg Arelis Roberto PA-C Work Phone: [facility] 04-03-2023 14:02-0500 Diastolic blood pressure 83 mm[Hg] Arelis Roberto PA-C Work Phone: [facility] 04-03-2023 14:02-0500 Heart rate 101 /min Arelis Roberto PA-C Work Phone: [facility] 04-03-2023 14:02-0500 Respiratory rate 18 /min Arelis Roberto PA-C Work Phone: [facility] 04-03-2023 14:02-0500 SaO2% (BldA) [Mass fraction] 99 % Arelis Roberto PA-C Work Phone: [facility] 04-03-2023 14:02-0500 Systolic blood pressure 123 mm[Hg] Arelis Roberto PA-C Work Phone: [facility] 03-29-2023 09:31-0500 Body temperature 98.29 [degF] Horace Torres PA-C Work Phone: [facility] 03-29-2023 09:31-0500 Body weight 83.92 kg Horace Torres PA-C Work Phone: [facility] 03-29-2023 09:31-0500 Diastolic blood pressure 74 mm[Hg] Horace Torres PA-C Work Phone: [facility] 03-29-2023 09:31-0500 Heart rate 63 /min Horace Torres PA-C Work Phone: [facility] 03-29-2023 09:31-0500 Respiratory rate 19 /min Horace Torres PA-C Work Phone: [facility] 03-29-2023 09:31-0500 SaO2% (BldA) [Mass fraction] 100 % Horace Torres PA-C Work Phone: [facility] 03-29-2023 09:31-0500 Systolic blood pressure 109 mm[Hg] Horace Torres PA-C Work Phone: [facility] 03-19-2023 12:21-0500 Body temperature 98.1 [degF] Kinga Ramsay MD Work Phone: [facility] 03-19-2023 12:21-0500 Body weight 84.55 kg Kinga Ramsay MD Work Phone: [facility] 03-19-2023 12:21-0500 Diastolic blood pressure 71 mm[Hg] Kinga Ramsay MD Work Phone: [facility] 03-19-2023 12:21-0500 Heart rate 89 /min Kinga Ramsay MD Work Phone: [facility] 03-19-2023 12:21-0500 Respiratory rate 20 /min Kinga Ramsay MD Work Phone: [facility] 03-19-2023 12:21-0500 SaO2% (BldA) [Mass fraction] 99 % Kinga Ramsay MD Work Phone: [facility] 03-19-2023 12:21-0500 Systolic blood pressure 109 mm[Hg] Kinga Ramsay MD Work Phone: [facility] 02-06-2023 11:30-0500 Blood Pressure Cuff Size BARBARA GALLARDO MD [facility] 02-06-2023 11:30-0500 Blood Pressure Location BARBARA GALLARDO MD [facility] 02-06-2023 11:30-0500 Blood Pressure Method BARBARA GALLARDO MD [facility] 02-06-2023 11:30-0500 Body temperature 98.06 [degF] BARBARA GALLARDO MD [facility] 02-06-2023 11:30-0500 Heart rate 87 /min BARBARA GALLARDO MD [facility] 02-06-2023 11:30-0500 Reason For Taking VItal Signs BARBARA GALLARDO MD [facility] 02-06-2023 11:30-0500 Respiratory rate 18 /min BARBARA GALLARDO MD [facility] 01-19-2023 13:10-0500 Body height 154.9 cm Harpreet Shankar MD Work Phone: [facility] 01-19-2023 13:10-0500 Body temperature 98.8 [degF] Harpreet Shankar MD Work Phone: [facility] 01-19-2023 13:10-0500 Body weight 83.78 kg Harpreet Shankar MD Work Phone: [facility] 01-19-2023 13:10-0500 Diastolic blood pressure 68 mm[Hg] Harpreet Shankar MD Work Phone: [facility] 01-19-2023 13:10-0500 Heart rate 108 /min Harpreet Shankar MD Work Phone: [facility] 01-19-2023 13:10-0500 SaO2% (BldA) [Mass fraction] 98 % Harpreet Shankar MD Work Phone: [facility] 01-19-2023 13:10-0500 Systolic blood pressure 114 mm[Hg] Harpreet Shankar MD Work Phone: [facility] 01-07-2023 08:31-0500 Body height 153.7 cm Brenna Haury THEATRE ARTS PROFESSOR.PROFESSOR OF PATHOLOGY Work Phone: [facility] 01-07-2023 08:31-0500 Body weight 83.73 kg Brenna Haury THEATRE ARTS PROFESSOR.PROFESSOR OF PATHOLOGY Work Phone: [facility] 01-07-2023 08:31-0500 Diastolic blood pressure 68 mm[Hg] Brenna Haury THEATRE ARTS PROFESSOR.PROFESSOR OF PATHOLOGY Work Phone: [facility] 01-07-2023 08:31-0500 Systolic blood pressure 100 mm[Hg] Brenna Haury THEATRE ARTS PROFESSOR.PROFESSOR OF PATHOLOGY Work Phone: [facility] 11-26-2022 14:26-0400 Body height 154.9 cm Linh George MD Work Phone: [facility] 11-26-2022 14:26-0400 Body weight 84.37 kg Linh George MD Work Phone: [facility] 11-26-2022 14:26-0400 Diastolic blood pressure 80 mm[Hg] Linh George MD Work Phone: [facility] 11-26-2022 14:26-0400 Systolic blood pressure 118 mm[Hg] Linh George MD Work Phone: [facility] 11-02-2022 18:34-0400 Diastolic Blood Pressure Non-Invasive [address] IAN MORAN MD [facility] 11-02-2022 18:34-0400 Heart rate 82 /min DR IAN MORAN MD [facility] 11-02-2022 18:34-0400 Respiratory rate 16 /min DR IAN MORAN MD [facility] 11-02-2022 18:34-0400 Systolic Blood Pressure Non-Invasive [address] IAN MORAN MD [facility] 11-02-2022 16:02-[address] IAN MORAN MD [facility] 11-02-2022 16:02-[address] IAN Betancourt MD [facility] 11-02-2022 16:02-0400 Body temperature 98.78 [degF] DR IAN MORAN MD [facility] 11-02-2022 16:02-0400 Body weight 84.[address] IAN MORAN MD [facility] 11-02-2022 16:02-0400 Diastolic Blood Pressure Non-Invasive [address] IAN MORAN MD [facility] 11-02-2022 16:02-0400 Heart rate 91 /min DR IAN MORAN MD [facility] 11-02-2022 16:02-0400 Respiratory rate 18 /min DR IAN MORAN MD [facility] 11-02-2022 16:02-0400 Systolic Blood Pressure Non-Invasive [address] IAN MORAN MD [facility] 09-13-2022 15:39-0400 Body temperature 98.91 [degF] Augusto Adames MD Work Phone: [facility] 09-13-2022 15:39-0400 Body weight 86.91 kg Augusto Adames MD Work Phone: [facility] 09-13-2022 15:39-0400 Diastolic blood pressure 81 mm[Hg] Augusto Adames MD Work Phone: [facility] 09-13-2022 15:39-0400 Heart rate 80 /min Augusto Adames MD Work Phone: [facility] 09-13-2022 15:39-0400 Respiratory rate 19 /min Augusto Adames MD Work Phone: [facility] 09-13-2022 15:39-0400 SaO2% (BldA) [Mass fraction] 98 % Augusto Adames MD Work Phone: [facility] 09-13-2022 15:39-0400 Systolic blood pressure 126 mm[Hg] Augusto Adames MD Work Phone: [facility] 07-12-2022 14:49-0400 Body weight 84.37 kg Michael Dyko PA-C Work Phone: [facility] 07-12-2022 14:49-0400 Diastolic blood pressure 77 mm[Hg] Michael Dyko PA-C Work Phone: [facility] 07-12-2022 14:49-0400 Heart rate 88 /min Michael Dyko PA-C Work Phone: [facility] 07-12-2022 14:49-0400 Respiratory rate 17 /min Michael Dyko PA-C Work Phone: [facility] 07-12-2022 14:49-0400 SaO2% (BldA) [Mass fraction] 99 % Michael Dyko PA-C Work Phone: [facility] 07-12-2022 14:49-0400 Systolic blood pressure 136 mm[Hg] Michael Dyko PA-C Work Phone: [facility] 07-06-2022 09:05-0400 Body temperature 98.4 [degF] Augusto Adames MD Work Phone: [facility] 07-06-2022 09:05-0400 Body weight 83.28 kg Augusto Adames MD Work Phone: [facility] 07-06-2022 09:05-0400 Diastolic blood pressure 66 mm[Hg] Augusto Adames MD Work Phone: [facility] 07-06-2022 09:05-0400 Heart rate 114 /min Augusto Adames MD Work Phone: [facility] 07-06-2022 09:05-0400 Respiratory rate 18 /min Augusto Adames MD Work Phone: [facility] 07-06-2022 09:05-0400 SaO2% (BldA) [Mass fraction] 98 % Augusto Adames MD Work Phone: [facility] 07-06-2022 09:05-0400 Systolic blood pressure 116 mm[Hg] Augusto Adames MD Work Phone: [facility] 12-27-2021 10:36-0500 Body temperature 99 [degF] Demetrius Treadwellehler PA-C Work Phone: [facility] 12-27-2021 10:36-0500 Body weight 76.2 kg Demetrius Shelly PA-C Work Phone: [facility] 12-27-2021 10:36-0500 Diastolic blood pressure 71 mm[Hg] Demetrius Shelly PA-C Work Phone: [facility] 12-27-2021 10:36-0500 Heart rate 108 /min Demetrius Shelly PA-C Work Phone: [facility] 12-27-2021 10:36-0500 Respiratory rate 18 /min Demetrius Shelly PA-C Work Phone: [facility] 12-27-2021 10:36-0500 SaO2% (BldA) [Mass fraction] 98 % Demetrius Shelly PA-C Work Phone: [facility] 12-27-2021 10:36-0500 Systolic blood pressure 126 mm[Hg] Demetrius Shelly HO Work Phone: [facility] 11-30-2021 20:21-0400 Body temperature 97.7 [degF] Deana Navarro DO Work Phone: [facility] 11-30-2021 20:21-0400 Body weight 76.2 kg Deana Navarro DO Work Phone: [facility] 11-30-2021 20:21-0400 Diastolic blood pressure 79 mm[Hg] Deana Navarro DO Work Phone: [facility] 11-30-2021 20:21-0400 Heart rate 80 /min Deana Navarro DO Work Phone: [facility] 11-30-2021 20:21-0400 Respiratory rate 18 /min Deana Navarro DO Work Phone: [facility] 11-30-2021 20:21-0400 SaO2% (BldA) [Mass fraction] 100 % Deana Navarro DO Work Phone: [facility] 11-30-2021 20:21-0400 Systolic blood pressure 140 mm[Hg] Deana Navarro DO Work Phone: [facility] 07-10-2021 10:56-0400 Body weight 75.75 kg Marcia Beckett APRN.CNM Work Phone: [facility] 07-10-2021 10:56-0400 Diastolic blood pressure 70 mm[Hg] Marcia Beckett APRN.CNM Work Phone: [facility] 07-10-2021 10:56-0400 Systolic blood pressure 108 mm[Hg] Marcia Beckett APRN.CNM Work Phone: [facility] 05-19-2021 11:18-0400 Body weight 84.82 kg Cheli Dillard MD Work Phone: [facility] 05-19-2021 11:18-0400 Diastolic blood pressure 74 mm[Hg] Cheli Dillard MD Work Phone: [facility] 05-19-2021 11:18-0400 Systolic blood pressure 110 mm[Hg] Cheli Dillard MD Work Phone: [facility] 05-19-2021 10:54-0400 Body weight 85 kg Luda Allen MD Work Phone: [facility] 05-19-2021 10:54-0400 Diastolic blood pressure 74 mm[Hg] Luda Allen MD Work Phone: [facility] 05-19-2021 10:54-0400 Systolic blood pressure 110 mm[Hg] Luda Allen MD Work Phone: [facility] 05-12-2021 10:33-0400 Body weight 82.1 kg Marcia Beckett THEATRE ARTS PROFESSOR.CNM Work Phone: [facility] 05-12-2021 10:33-0400 Diastolic blood pressure 68 mm[Hg] Marcia Beckett THEATRE ARTS PROFESSOR.CNM Work Phone: [facility] 05-12-2021 10:33-0400 Systolic blood pressure 110 mm[Hg] Marcia Beckett THEATRE ARTS PROFESSOR.CNM Work Phone: [facility] 05-04-2021 14:07-0400 Body height 154.9 cm Samy Delaney MD Work Phone: [facility] 05-04-2021 14:07-0400 Body weight 83.28 kg Samy Delaney MD Work Phone: [facility] 05-04-2021 14:07-0400 Diastolic blood pressure 76 mm[Hg] Samy Delaney MD Work Phone: [facility] 05-04-2021 14:07-0400 Systolic blood pressure 122 mm[Hg] Samy Delaney MD Work Phone: [facility] Encounters Encounter Date Encounter Type Care Provider Facility Start: 12-22-2023 End: 12-22-2023 ambulatory LG MUNSON Facility:[facility] Start: 12-22-2023 End: 12-22-2023 Patient encounter procedure Lg Munson MD Work Phone: OB/Gynecology Comment on above: Supervision of high risk in third trimester (Primary Dx); Dichorionic diamniotic twin in third trimester; Gestational diabetes mellitus (GDM), antepartum, gestational diabetes method of control unspecified; 36 weeks gestation of Start: 12-15-2023 End: 12-15-2023 ambulatory HARPREET SHANKAR Facility:[facility] Start: 12-15-2023 End: 12-15-2023 Patient encounter procedure Harrison Cam MD Work Phone: OB/Gynecology Comment on above: Supervision of high risk in third trimester (Primary Dx); Anemia complicating , third trimester; Gestational diabetes mellitus (GDM), antepartum, gestational diabetes method of control unspecified; Dichorionic diamniotic twin in third trimester; Benign gestational thrombocytopenia in third trimester (HCC); 35 weeks gestation of Start: 12-15-2023 End: 12-15-2023 ambulatory Treatment Rm 18 [facility] Work Phone: Hematology/Oncology Comment on above: Maternal iron defici ency anemia complicating , third trimester (Primary Dx) Start: 12-08-2023 End: 12-08-2023 ambulatory [facility] Hematology/Oncology Comment on above: Maternal iron defici ency anemia complicating , third trimester (Primary Dx) Start: 12-08-2023 End: 12-08-2023 Patient encounter procedure Treatment Rm 16 [facility] Work Phone: Hematology/Oncology Comment on above: Encounter for ultras ound to check growth (Primary Dx); Dichorionic diamniotic twin in first trimester; Diet controlled gestational diabetes mellitus (GDM), antepartum; 34 weeks gestation of Supervision of high risk in third trimester (Primary Dx); Anemia complicating , third trimester; Gestational diabetes mellitus (GDM), antepartum, gestational diabetes method of control unspecified; Dichorionic diamniotic twin in third trimester; Benign gestational thrombocytopenia in third trimester (HCC) Start: 12-07-2023 End: 12-07-2023 Telephone encounter Leonora Chapman supervisor commissary production [facility] Comment on above: Blood Management Start: 12-01-2023 End: 12-01-2023 ambulatory Leonora Chapman RNsupervisor commissary production [facility] Comment on above: Blood Management Start: 12-01-2023 End: 12-01-2023 Telephone encounter Harrison Cam MD Work Phone: OB/Gynecology Comment on above: Results Start: 11-30-2023 ambulatory MELONY PINEDA [facility] y:[facility] Start: 11-30-2023 End: 11-30-2023 Subsequent hospital visit by physician Pat Moore [facility] Work Phone: OB/Gynecology Comment on above: with uncer tain dates in first trimester [Z34.91] Start: 11-28-2023 End: 11-28-2023 ambulatory HARRISON CAM Facility:[id number] Start: 11-27-2023 End: 11-28-2023 ambulatory Harrison Cam MD Work Phone: OB/Gynecology Comment on above: RSV Vaccine Start: 11-24-2023 End: 11-24-2023 ambulatory LUIS BERUMEN APRN-PROFESSOR OF PATHOLOGY Facility:[facility] Start: 11-24-2023 End: 11-24-2023 ambulatory HARPREET SMITH TABOR Facility:[facility] Start: 11-24-2023 End: 11-24-2023 Patient encounter procedure Harrison Cam MD Work Phone: OB/Gynecology Comment on above: 32 weeks gestation o f (Primary Dx); Supervision of high risk in third trimester; Anemia complicating , third trimester; Gestational diabetes mellitus (GDM), antepartum, gestational diabetes method of control unspecified; Benign gestational thrombocytopenia in second trimester (HCC) Start: 11-23-2023 End: 11-23-2023 Telephone encounter Linh George MD Work Phone: OB/Gynecology Start: 11-15-2023 End: 11-15-2023 ambulatory HARPREET SMITH TABOR Facility:[facility] Start: 11-15-2023 End: 11-15-2023 Nursing evaluation of patient and report Sarah Palumbo RN Work Phone: Endocrinology Comment on above: Gestational diabetes mellitus (GDM), antepartum, gestational diabetes method of control unspecified Start: 11-10-2023 End: 11-10-2023 ambulatory LG LORRAINE Hematology/Oncology Comment on above: Maternal iron defici ency anemia complicating , third trimester (Primary Dx) Start: 11-10-2023 End: 11-10-2023 Patient encounter procedure Treatment Rm 14 [facility] Work Phone: Hematology/Oncology Start: 11-10-2023 End: 11-10-2023 Telephone encounter [facility] Work Phone: OB/Gynecology Comment on above: Photolettering Machine Operator - O ther ([facility] Scheduling/LM attempt # 1 to schedule [facility] consult) Start: 11-10-2023 End: 11-10-2023 ambulatory SINGH SHANKAR Facility:[facility] Start: 11-10-2023 End: 11-10-2023 Patient encounter procedure Harrison Cam MD Work Phone: OB/Gynecology Comment on above: Supervision of high risk in third trimester (Primary Dx); Need for influenza vaccination; Need for vaccination; Gestational diabetes mellitus (GDM), antepartum, gestational diabetes method of control unspecified; Anemia complicating , third trimester; Dichorionic diamniotic twin in third trimester Start: 11-10-2023 End: 11-10-[facility] Start: 11-10-2023 End: 11-10-2023 Patient encounter procedure Representative Government Relations [facility] [employer] [employer] Work Phone: Maternal Medicine Comment on above: Dichorionic diamniot ic twin in first trimester (Primary Dx) Start: 11-08-2023 End: 11-08-2023 Patient encounter procedure Treatment Rm 14 [facility] Work Phone: Hematology/Oncology Start: 11-08-2023 End: 11-08-2023 ambulatory [facility] Work Phone: [address] Comment on above: [employer] Time to [place] Maternal iron defici ency anemia complicating , third trimester (Primary Dx) Start: 11-08-2023 End: 11-08-2023 E-mail encounter from caregiver Pat Moore [facility] Work Phone: [address] Start: 11-04-2023 End: 11-04-2023 Telephone encounter Financial Navigator Rick Work Phone: Financial Services Comment on above: Benefits Investigati on Start: 11-03-2023 End: 11-03-2023 ambulatory LG MUNSON Hematology/Oncology Comment on above: Maternal iron defici ency anemia complicating , third trimester (Primary Dx) Start: 11-03-2023 End: 11-03-2023 Patient encounter procedure Treatment Rm 17 [facility] Work Phone: Hematology/Oncology Start: 10-31-2023 End: 10-31-2023 Telephone encounter Leonora Chapman RNsupervisor commissary production [facility] Comment on above: Hematology; Appointm ent Start: 10-28-2023 End: 10-28-2023 Orders Only Lg Munson MD Work Phone: OB/Gynecology Comment on above: Results Start: 10-27-2023 End: 10-27-2023 Telephone encounter Nurse Representative Government Relations [facility] Work Phone: Obstetrics/Gynecology Comment on above: PRAF Start: 10-26-2023 End: 10-26-2023 Patient encounter procedure Linh Arias George MD Work Phone: OB/Gynecology Comment on above: Supervision of high risk in third trimester (Primary Dx); Abnormal glucose complicating ; Anemia during in second trimester; Obesity affecting in first trimester, unspecified obesity type; Low lying placenta without hemorrhage, antepartum; Dichorionic diamniotic twin in second trimester; 28 weeks gestation of Start: 10-26-2023 End: 10-26-2023 ambulatory Leonora Chapman RNsupervisor commissary production [facility] Comment on above: Blood Management Start: 10-22-2023 End: 10-22-2023 [facility][id number] Start: 10-14-2023 End: 10-14-2023 Telephone encounter Lg Munson MD Work Phone: OB/Gynecology Comment on above: Orders Start: 10-13-2023 End: 10-13-2023 ambulatory LINH GEORGE Facility:[facility] Start: 10-13-2023 End: 10-13-2023 Patient encounter procedure Representative Government Relations [facility] Work Phone: OB/Gynecology Comment on above: Encounter for ultras ound to check growth (Primary Dx); Dichorionic diamniotic twin in first trimester; 26 weeks gestation of Encounter for superv ision of high risk in second trimester, antepartum (Primary Dx); 26 weeks gestation of ; Dichorionic diamniotic twin in second trimester; Obesity affecting in first trimester, unspecified obesity type; Low lying placenta without hemorrhage, antepartum; Low-lying placenta Start: 10-13-2023 End: 10-13-2023 Psychiatric hospital Facility:[facility] Start: 09-15-2023 End: 09-15-2023 ambulatory HARRISON CAM Facility:[facility] Start: 09-15-2023 End: 09-15-2023 Patient encounter procedure Representative Government Relations [facility] Work Phone: OB/Gynecology Comment on above: Dichorionic diamniot ic twin in first trimester (Primary Dx); 22 weeks gestation of 22 weeks gestation o f (Primary Dx); Dichorionic diamniotic twin in first trimester; Encounter for supervision of high risk in second trimester, antepartum Start: 08-26-2023 Telephone encounter Photolettering Machine Operator RN Obstetrics/Gynecology Comment on above: PRAF Start: 08-16-2023 Telephone encounter Harrison thompson MD Work Phone: OB/Gynecology Start: 08-16-2023 End: 08-16-2023 ambulatory [facility] Facility:[facility] Start: 08-16-2023 End: 08-16-2023 Patient encounter procedure Harrison Cam MD Work Phone: OB/Gynecology Comment on above: 18 weeks gestation o f (Primary Dx); Dichorionic diamniotic twin in first trimester; Obesity affecting in first trimester, unspecified obesity type; Encounter for supervision of high risk in first trimester, antepartum; Placenta previa antepartum Encounter for anatomic survey (Primary Dx); Dichorionic diamniotic twin in first trimester; Obesity affecting in first trimester, unspecified obesity type; 18 weeks gestation of ; Low lying placenta without hemorrhage, antepartum Start: 07-29-2023 End: 07-29-2023 Psychiatric hospital Facility:[facility] Start: 07-29-2023 End: 07-29-2023 Patient encounter procedure Harrison Cam MD Work Phone: OB/Gynecology Comment on above: 16 weeks gestation o f (Primary Dx) Start: 07-12-2023 End: 07-12-2023 Psychiatric hospital Facility:[facility] Start: 07-12-2023 End: 07-12-2023 Patient encounter procedure Whi [employer] 1 Representative [employer] [facility] Comment on above: Dichorionic diamniot ic twin in first trimester (Primary Dx); 13 weeks gestation of ; Obesity affecting in first trimester, unspecified obesity type; Encounter for nuchal translucency testing Start: 07-05-2023 End: 07-05-2023 Psychiatric hospital Facility:[facility] Start: 07-05-2023 End: 07-05-2023 Patient encounter procedure Harrison Cam MD Work Phone: OB/Gynecology Comment on above: 12 weeks gestation o f (Primary Dx); Obesity affecting in first trimester, unspecified obesity type; Encounter for supervision of high risk in first trimester, antepartum; Dichorionic diamniotic twin in first trimester Start: 06-27-2023 End: 06-28-2023 Emergency department patient visit PATIENT UNSURE PHYSICIAN Facility:B Start: 06-27-2023 End: 06-27-2023 Emergency department patient visit AVIS SANTOS MD [facility] Start: 06-27-2023 Telephone encounter Linh George MD Work Phone: OB/Gynecology Comment on above: OB- N/V Start: 06-13-2023 End: 06-13-2023 ambulatory [facility] Facility:[id number] Start: 06-13-2023 End: 06-13-2023 Office outpatient visit 15 minutes Nate Aviles APRN.PROFESSOR OF PATHOLOGY Work Phone: [facility] Comment on above: Non-recurrent acute serous otitis media of both ears (Primary Dx); 9 weeks gestation of ; Pharyngitis, unspecified etiology Start: 06-07-2023 Telephone encounter Photolettering Machine Operator RN Obstetrics/Gynecology Comment on above: PRAF Start: 06-06-2023 E-mail encounter rivera pedersen Pat Moore Ob L&D Work Phone: OB/Gynecology Start: 06-06-2023 End: 06-06-2023 Patient encounter procedure Melony Pineda THEATRE ARTS PROFESSOR.CNM Work Phone: OB/Gynecology Comment on above: with uncer tain dates in first trimester (Primary Dx); History of gestational diabetes mellitus; Forceps or vacuum extractor delivery; Screening for cervical cancer; Screening for human papillomavirus; Vaginal bleeding; History of Riap-Wcszm-Ybqzxxp disease; 8 weeks gestation of ; Obesity affecting in first trimester, unspecified obesity type; Encounter for supervision of high risk in first trimester, antepartum M-Power Referral Start: 06-06-2023 End: 06-06-2023 Psychiatric hospital Facility:[facility] Start: 06-06-2023 End: 06-06-2023 Psychiatric hospital Facility:[facility] Start: 06-02-2023 Telephone encounter Melony anton THEATRE ARTS PROFESSOR.CNM Work Phone: OB/Gynecology Comment on above: Appointment; isabel g in Start: 04-03-2023 End: 04-03-2023 Patient encounter procedure Arelis Tapia PA-C Work Phone: [facility] Comment on above: Sinobronchitis (Prim kenny Dx) Start: 04-03-2023 End: 04-03-2023 ambulatory SELF Facility:[id number] Start: 03-29-2023 End: 03-29-2023 Patient encounter procedure Horace Torres PA-C Work Phone: [facility] Comment on above: Dermatitis (Primary Dx) Start: 03-29-2023 End: 03-29-2023 ambulatory SELF Facility:[id number] Start: 03-19-2023 End: 03-19-2023 Patient encounter procedure Kinga Ramsay MD Work Phone: [facility] Comment on above: URI with cough and c ongestion (Primary Dx) Start: 03-19-2023 End: 03-19-2023 ambulatory HARPREET SHANKAR Facility:[id number] Start: 03-09-2023 End: 03-09-2023 ambulatory HARPREET SHANKAR Facility:[facility] Start: 03-03-2023 ambulatory HARPREET SHANKAR Facil ity:[facility] Start: 02-23-2023 End: 02-24-2023 ambulatory HARPREET SHANKAR Facility:[facility] Start: 02-11-2023 End: 02-11-2023 ambulatory HARPREET SHANKAR Facility:[facility] Start: 02-08-2023 End: 02-08-2023 ambulatory HARPREET SHANKAR Facility:[facility] Start: 02-06-2023 End: 02-06-2023 Emergency department patient visit BARBARA GALLARDO MD Facility:B Start: 02-06-2023 End: 02-06-2023 Emergency department patient visit BARBARA GALLARDO MD [facility] Start: 2023 End: 2023 ambulatory HARPREET SHANKAR Facility:[id number] Start: 01-19-2023 End: 01-19-2023 ambulatory HARPREET SHANKAR Facility:[facility] Start: 01-19-2023 End: 01-19-2023 Patient encounter procedure Harpreet Shankar MD Work Phone: [facility]ni Vasquez [facility] Comment on above: Encounter to [facility] with new doctor (Primary Dx); Depression screening; History of gestational diabetes; Numbness of foot Start: 01-11-2023 Telephone encounter Brenna lópez WENDY.PROFESSOR OF PATHOLOGY Work Phone: Obstetrics/Gynecology Comment on above: PRAF Start: 01-07-2023 End: 01-07-2023 ambulatory BRENNA ALTAMIRANO Facility:[facility] Start: 01-07-2023 End: 01-07-2023 ambulatory BRENNA ALTAMIRANO Facility:[facility] Start: 01-07-2023 End: 01-07-2023 Patient encounter procedure Brenna Altamirano THEATRE [employer]S PROFESSOR.PROFESSOR OF PATHOLOGY Work Phone: OB/Gynecology Comment on above: with uncer tain dates in first trimester (Primary Dx); Encounter for supervision of other normal in first trimester; 10 weeks gestation of ; History of gestational diabetes mellitus; Heartburn during in first trimester; Nausea and vomiting during ; Asthma during ; Forceps or vacuum extractor delivery; History of gestational diabetes; Obesity affecting in first trimester, unspecified obesity type Start: 01-01-2023 End: 01-01-2023 ambulatory KATRINA ROPER Facility:[id number] Start: 11-26-2022 End: 11-26-2022 Patient encounter procedure Linh George MD Work Phone: OB/Gynecology Comment on above: Encounter for gyneco logical examination (general) (routine) without abnormal findings (Primary Dx) Start: 11-26-2022 End: 11-26-2022 Patient encounter status Linh George MD Work Phone: [facility] Start: 11-02-2022 End: 11-02-2022 Emergency department patient visit DR IAN MORAN MD Facility:B Start: 11-02-2022 End: 11-02-2022 Emergency department patient visit DR IAN MORAN MD [facility] Start: 09-13-2022 End: 09-13-2022 Patient encounter procedure Augusto Adames MD Work Phone: [facility] Comment on above: Sore throat (Primary Dx); Viral pharyngitis Start: 07-12-2022 End: 07-12-2022 Patient encounter procedure Michael Hernandez PA-C Work Phone: [facility] Comment on above: Vaginal yeast infect ion (Primary Dx) Start: 07-06-2022 Telephone encounter Augusto alfonso MD Work Phone: [facility] Comment on above: Patient Update (Need s time off from work. ) Start: 07-06-2022 End: 07-06-2022 Office outpatient visit 15 minutes Augusto Adames MD Work Phone: [facility] Comment on above: Sore throat (Primary Dx); Strep pharyngitis Start: 12-27-2021 End: 12-27-2021 Patient encounter procedure Demetrius Bravo PA-C Work Phone: [facility] Comment on above: Viral illness (Prima ry Dx) Start: 11-30-2021 End: 11-30-2021 Patient encounter procedure Deana Navarro DO Work Phone: [facility] Comment on above: Laryngitis (Primary Dx); Sinobronchitis Start: 07-10-2021 Telephone encounter Marcia blanco APRN.CN Work Phone: OB/Gynecology Comment on above: Appointment Start: 07-10-2021 End: 07-10-2021 Patient encounter procedure Marcia Beckett APRN.JAIRO Work Phone: OB/Gynecology Comment on above: care and examination (Primary Dx); Encounter for initial prescription of contraceptive pills; History of gestational diabetes mellitus; History of gestational diabetes Start: 06-26-2021 ambulatory Cheli hensley MD Work Phone: OB/Gynecology Comment on above: Question Start: 05-19-2021 End: 05-19-2021 Patient encounter procedure Luda Allen MD Work Phone: Maternal Medicine Comment on above: Diet controlled gest ational diabetes mellitus (GDM) in third trimester (Primary Dx); 39 weeks gestation of 39 weeks gestation o f (Primary Dx); GDM (gestational diabetes mellitus), class A1; Constipation, unspecified constipation type Start: 05-15-2021 ambulatory Marcia Beckett APRN.CNM Work Phone: OB/Gynecology Comment on above: Glucose Monitoring Start: 05-12-2021 ambulatory [facility] [place] Comment on above: Population Health Na vigation Outreach (ob/peds) Start: 05-12-2021 End: 05-12-2021 Patient encounter procedure Marciaroberto Beckett APRN.CNMulugeta Work Phone: OB/Gynecology Comment on above: 38 weeks gestation o f (Primary Dx); GDM (gestational diabetes mellitus), class A1 Start: 05-04-2021 End: 05-04-2021 Patient encounter procedure Samy Delaney MD Work Phone: [facility] Obstetrics and Gynecology Comment on above: Gestational diabetes mellitus, class A1 (Primary Dx); 36 weeks gestation of Malposition of fetus , single or unspecified fetus (Primary Dx) Procedures Date Procedure Procedure Detail Performing Clinician Start: 12-22-2023 Urnls dip stick/tabl et rgnt non-auto w/o micrscp Lg Munson MD Work Phone: Start: 12-15-2023 Urnls dip stick/tabl et rgnt non-auto w/o micrscp Harrison Cam MD Work Phone: Start: 12-08-2023 Us preg uterus after 1st trimest 02/07 gestation Harrison Cam MD Work Phone: Start: 11-24-2023 RSV VACCINE, BIVALEN T (ABRYSVO) Harrison Cam MD Work Phone: Start: 11-24-2023 Urnls dip stick/tabl et rgnt non-auto w/o micrscp Harrison Cam MD Work Phone: Start: 11-10-2023 Urnls dip stick/tabl et rgnt non-auto w/o micrscp Harrison Cam MD Work Phone: Start: 11-10-2023 Us preg uterus after 1st trimest 1/ gestation Harrison Cam MD Work Phone: Start: 10-13-2023 Us preg uterus after 1st trimest / gestation Harrison Cam MD Work Phone: Start: 09-15-2023 Us preg uterus after 1st trimest / gestation Harrison Cam MD Work Phone: Start: 08-16-2023 Us preg uterus after 1st trimest 1/ gestation Melony Pineda THEATRE ARTS PROFESSOR.CNM Work Phone: Start: 07-12-2023 Us nuchal cunningham slucency 1st gestation Harrison Cam MD Work Phone: Start: 06-06-2023 Antibody screen LINH GEORGE Comment on above: Order Comment: Speci men Type: BLOOD SPECIMENOrdering Facility: [facility] Address: [address] [place] [address] Performed By: #### T SPN ####CC MAIN BLOOD BANKCLIA [id number] [address] Start: 02-23-2023 Antibody screen HARPREET BELTRE Comment on above: Order Comment: Speci men Type: BLOOD SPECIMEN [facility] Facility: [facility] Address: [address] [place] [address] Performed By: #### T SPN #### [facility] BLOOD BANK CLIA [id number] Start: 01-07-2023 Antibody screen LINH GEORGE Comment on above: Order Comment: Speci men Type: BLOOD SPECIMENOrdering Facility: [facility] Address: [address] [place] [address] Performed By: #### T SPN ####CC MAIN BLOOD BANKCLIA [id number] [address] JOYCELYN Start: 01-07-2023 Adult depression scr eening assessment Treatment Wstr Work Phone: Start: 09-13-2022 Iadna streptococcus group a amplified probe tq Augusto Adames MD Work Phone: Start: 07-06-2022 Iaad ia streptococcu s group a Augusto Adames MD Work Phone: Start: 05-19-2021 Us preg uterus after 1st trimest 02/07 gestation Marcia Beckett THEATRE ARTS PROFESSOR.CNM Work Phone: Start: 05-12-2021 URINE OB DIP B/O Angel Beckett THEATRE ARTS PROFESSOR.CNM Work Phone: Start: 05-04-2021 Urnls dip stick/tabl et rgnt auto w/o microscopy Samy Delaney MD Work Phone: Start: 05-04-2021 Us preg uterus after 1st trimest 02/07 gestation Samy Delaney MD Work Phone: Plan of Treatment Date Care Activity Detail Author Start: 11-09-2033 Urine microalbumin profile DTaP,Tdap,Td Vaccine (4 - Td or Tdap) [facility] Start: 03-02-2031 Urine microalbumin profile [facility] Start: 06-05-2028 Screening for malignant neoplasm of cervix [facility] Start: 11-14-2025 Screening for malignant neoplasm of cervix Pap Testing [facility] Start: 06-05-2024 Screening for malignant neoplasm of cervix Cervical Cancer Screening [facility] Start: 01-20-2024 Annual PCP Team Chronic Disease Visit Annual PCP Team Chronic Disease Visit [facility] Start: 01-19-2024 End: 01-19-2024 Patient encounter procedure 01/19/2024 10:20 AM EST Office Visit [facility] [address] [facility] [address] [place] [address] Camila Power, THEATRE ARTS PROFESSOR.PROFESSOR OF PATHOLOGY [address] [place], [place] [id number] Annual wellness [facility] Comment on above: Annual wellness Start: 01-09-2024 End: 01-09-2024 Patient encounter procedure 01/09/2024 3:40 PM EST Office Visit OB/Gynecology [address] [place] [address] Lg Munson MD [address] [place] [address] Incision check OB/Gynecology Comment on above: Incision check Start: 01-08-2024 Anxiety Screening Anxiety Screening [facility] Start: 01-08-2024 Depression Screening Depression Screening [facility] Start: 12-22-2023 End: 12-22-2023 Patient encounter procedure 12/22/2023 10:20 AM EST Routine Office Visit OB/Gynecology [address] [place], [place] [id number] Lg Munson MD [address] [place] [address] OB- Pre Op C/S 12/29 @ [facility] OB/Gynecology Comment on above: OB- Pre Op C/S 12/29 @ [facility] Start: 12-15-2023 End: 12-15-2023 Patient encounter procedure OB/Gynecology Comment on above: NST NST/OB Start: 12-15-2023 End: 12-15-2023 ambulatory Hematology/Oncology Comment on above: IRON SUCROSE/D2-2/AUTH EXP 02/07/24* ok per nurse Start: 12-08-2023 End: 12-08-2023 Patient encounter procedure Maternal Medicine Comment on above: Growth Growth/OB Start: 12-08-2023 End: 12-08-2023 ambulatory 12/08/2023 12:00 PM EDT Visit (SP) Office Hematology/Oncology [address] [place] [id number] START IRON SUCROSE/D1-2/AUTH EXP 02/07/24* Hematology/Oncology Comment on above: START IRON SUCROSE/D1-2/AUTH EXP 4* Start: 11-30-2023 End: 11-30-2023 Patient encounter procedure 11/30/2023 10:00 AM EDT Appointment OB/Gynecology [address] [place] [address] L&[place] [address] [place] [id number] Phone consult with Mya. Mya will call you from [phone] at this time. OB/Gynecology Comment on above: Phone consult with Mya. Mya will call you from [phone] at this time. Start: 11-24-2023 End: 02-23-2024 Cobalamin (Vitamin B12) [Mass/volume] in Serum or Plasma VITAMIN B12 Lab Routine Anemia complicating , third trimester Expected: 11/24/2023, Expires: 02/23/2024 [facility] Comment on above: Expected: 11/24/2023, Expires: Start: 11-24-2023 End: 02-23-2024 Erythropoietin (EPO) [Units/volume] in Serum or Plasma ERYTHROPOIETIN/EPO Lab Routine Anemia complicating , third trimester Expected: 11/24/2023, Expires: 02/23/2024 [facility] Comment on above: Expected: 11/24/2023, Expires: Start: 11-24-2023 End: 02-23-2024 Ferritin [Mass/volume] in Serum or Plasma FERRITIN Lab Routine Anemia complicating , third trimester Expected: 11/24/2023, Expires: 02/23/2024 [facility] Work Phone: Comment on above: Expected: 11/24/2023, Expires: Start: 11-24-2023 End: 02-23-2024 Folate [Mass/volume] in Serum or Plasma FOLATE, SERUM Lab Routine Anemia complicating , third trimester Expected: 11/24/2023, Expires: 02/23/2024 [facility] Comment on above: Expected: 11/24/2023, Expires: Start: 11-24-2023 End: 02-23-2024 Iron and Iron binding capacity panel - Serum or Plasma IRON AND TIBC Lab Routine Anemia complicating , third trimester Expected: 11/24/2023, Expires: 02/23/2024 [facility] Comment on above: Expected: 11/24/2023, Expires: Start: 11-24-2023 End: 02-23-2024 Methylmalonate [Moles/volume] in Serum or Plasma METHYLMALONIC ACID Lab Routine Anemia complicating , third trimester Expected: 11/24/2023, Expires: 02/23/2024 [facility] Comment on above: Expected: 11/24/2023, Expires: Start: 11-24-2023 End: 02-23-2024 Pyridoxine [Mass/volume] in Serum or Plasma VITAMIN B6/PYRIDOXIN Lab Routine Anemia complicating , third trimester Expected: 11/24/2023, Expires: 02/23/2024 [facility] Comment on above: Expected: 11/24/2023, Expires: Start: 11-24-2023 End: 02-23-2024 RETICULOCYTE COUNT RETICULOCYTE COUNT Lab Routine Anemia complicating , third trimester Expected: 11/24/2023, Expires: 02/23/2024 [facility] Comment on above: Expected: 11/24/2023, Expires: Start: 11-24-2023 End: 11-24-2023 Patient encounter procedure 11/24/2023 1:50 PM EDT Routine Office Visit OB/Gynecology [address] [place], [place] [id number] Harrison Cam MD [address] [place], [place] [id number] OB OB/Gynecology Comment on above: OB Start: 11-18-2023 RSV Vaccine (1 - Risk 1-dose series) RSV Vaccine (1 - Risk 1-dose series) [facility] Start: 11-15-2023 PAP TESTING PAP TESTING [facility] Start: 11-15-2023 Screening for malignant neoplasm of cervix Pap Testing [facility] Start: 11-15-2023 End: 11-15-2023 Nursing evaluation of patient and report 11/15/2023 9:00 AM EDT Nurse Visit Endocrinology [address] [place] [address] Sarah Palumbo, RN [address] [address] Gestational diabetes mellitus (GDM), antepartum, gestational diabetes method of ... Endocrinology Comment on above: Gestational diabetes mellitus (GDM), ant epartum, gestational diabetes method of ... Start: 11-11-2023 RSV Vaccine (1 - Risk 1-dose series) RSV Vaccine (1 - Risk 1-dose series) [facility] Start: 11-10-2023 End: 11-10-2023 ambulatory 11/10/2023 2:30 PM EDT Visit (SP) Office Hematology/Oncology [address] [place] [address] 2ND Hematology/Oncology Comment on above: 2ND Start: 11-10-2023 End: 11-10-2023 Patient encounter procedure 11/10/2023 11:40 AM EDT Routine Office Visit OB/Gynecology [address] [place] [address] Harrison Cam MD [address] [place] [address] OB-growth u/s first OB/Gynecology Comment on above: OB-growth u/s first Start: 11-10-2023 End: 11-10-2023 Patient encounter procedure 11/10/2023 10:30 AM EDT Routine Office Visit Maternal Medicine [address] [place] [address] growth- twins Maternal Medicine Comment on above: growth- twins Start: 11-09-2023 End: 11-09-2023 Nursing evaluation of patient and report 11/09/2023 10:00 AM EDT Nurse Visit Endocrinology [address] [place] [address] Sarah Palumbo RN [address] [address] Gestational diabetes mellitus (GDM), antepartum, gestational diabetes method of control unspecified [O24.419] Endocrinology Comment on above: Gestational diabetes mellitus (GDM), ant epartum, gestational diabetes method of control unspecified [O24.419] Start: 11-08-2023 End: 11-08-2023 ambulatory 11/08/2023 3:30 PM EDT Visit (SP) Office Hematology/Oncology [address] [place] [address] 2ND Hematology/Oncology Comment on above: 2ND Start: 11-03-2023 End: 11-03-2023 ambulatory 11/03/2023 10:00 AM EDT Visit (SP) Office Hematology/Oncology [address] [place] [address] 2ND Hematology/Oncology Comment on above: 2ND Start: 10-26-2023 End: 10-26-2023 Patient encounter procedure 10/26/2023 9:40 AM EDT Routine Office Visit OB/Gynecology [address] [place] [address] Linh Zimmerman MD [address] [place] [address] OB OB/Gynecology Comment on above: OB Start: 10-26-2023 End: 10-26-2023 ambulatory 10/26/2023 8:15 AM EDT Results Only Misty Azul [facility] [address] [place] [address] 3 hour GTT Mistyjaxson Jadewn [facility] Comment on above: 3 hour GTT Start: 10-16-2023 End: 01-15-2024 CBC W Auto Differential panel - Blood COMPLETE BLOOD COUNT AND DIFFERENTIAL Lab Routine 22 weeks gestation of Dichorionic diamniotic twin in first trimester Expected: 10/16/2023 (Approximate), Expires: 01/15/2024 [facility] Comment on above: Expected: 10/16/2023 (Approximate), Expi res: 01/15/2024 Start: 10-16-2023 End: 01-15-2024 GESTATIONAL GLUCOSE SCREEN, 1-HOUR, 50 GRAM, NON-FASTING GESTATIONAL GLUCOSE SCREEN, 1-HOUR, 50 GRAM, NON-FASTING Lab Routine 22 weeks gestation of Dichorionic diamniotic twin in first trimester Expected: 10/16/2023 (Approximate), Expires: 01/15/2024 [facility] Work Phone: Comment on above: Expected: 10/16/2023 (Approximate), Expi res: 01/15/2024 Start: 10-16-2023 End: 01-15-2024 SYPHILIS TOTAL W/REFLEX SYPHILIS TOTAL W/REFLEX Lab Routine 22 weeks gestation of Dichorionic diamniotic twin in first trimester Expected: 10/16/2023 (Approximate), Expires: 01/15/2024 [facility] Comment on above: Expected: 10/16/2023 (Approximate), Expi res: 01/15/2024 Start: 10-14-2023 End: 01-13-2024 GEST GLUC ALVIN, 3-HR, 100 GM, FASTING GEST GLUC ALVIN, 3-HR, 100 GM, FASTING Lab Routine Abnormal glucose complicating Expected: 10/14/2023, Expires: 01/13/2024 [facility] Work Phone: Comment on above: Expected: 10/14/2023, Expires: Start: 10-13-2023 End: 10-13-2023 Patient encounter procedure OB/Gynecology Comment on above: Growth Twins Growth/ Glucose Test /OB Start: 10-09-2023 Covid-19 Vaccine () Covid-19 Vaccine () [facility] Start: 10-09-2023 Covid-19 Vaccine () Covid-19 Vaccine () [facility] Start: 10-09-2023 Influenza vaccination [facility] Start: 09-15-2023 End: 09-15-2023 Patient encounter procedure OB/Gynecology Comment on above: Growth twins OB Start: 08-16-2023 End: 08-16-2023 Patient encounter procedure OB/Gynecology Comment on above: Anatomy-twins OB Start: 07-29-2023 End: 07-29-2023 Patient encounter procedure 07/29/2023 9:00 AM EDT Routine Office Visit OB/Gynecology [address] [place] [address] Harrison Cam MD [address] [place] [address] 16 week ob OB/Gynecology Comment on above: 16 week ob Start: 07-07-2023 End: 07-07-2023 Patient encounter procedure 07/07/2023 8:30 AM EDT Appointment [facility] RADIOLOGY OB ULTRASOUND [address] [place] [address] Dichorionic diamniotic twin in first trimester [O30.041] [facility] RADIOLOG[facility] OB ULTRASOUND Comment on above: Dichorionic diamniotic twin in first trimester [O30.041] Start: 07-05-2023 End: 07-05-2023 Patient encounter procedure 07/05/2023 2:20 PM EDT Routine Office Visit OB/Gynecology [address] [place] [address] Harrison Cam MD [address] [place] [address] OB/Gynecology Comment on above: Start: 07-05-2023 End: 07-04-2024 NUCHAL TRANSLUCENCY WHI NUCHAL TRANSLUCENCY WHI Anc Imaging Routine Dichorionic diamniotic twin in first trimester Expected: 07/05/2023, Expires: 07/04/2024 [facility] Work Phone: Comment on above: Expected: 07/05/2023, Expires: Start: 06-06-2023 End: 06-05-2024 NUCHAL TRANSLUCENCY WHI NUCHAL TRANSLUCENCY WHI Anc Imaging Routine with uncertain dates in first trimester History of gestational diabetes mellitus Forceps or vacuum extractor delivery Expected: 06/06/2023, Expires: 06/05/2024 [facility] Comment on above: Expected: 06/06/2023, Expires: 5 Start: 06-06-2023 End: 06-05-2024 OBSTETRIC ULTRASOUND WHI OBSTETRIC ULTRASOUND WHI Anc Imaging Routine with uncertain dates in first trimester Expected: 06/06/2023, Expires: 06/05/2024 [facility] Comment on above: Expected: 06/06/2023, Expires: 5 Start: 06-06-2023 End: 09-05-2023 TYPE + SCREEN [facility] Comment on above: Expected: 06/06/2023, Expires: 4 Start: 06-06-2023 End: 06-06-2023 Patient encounter procedure 06/06/2023 8:45 AM EDT Initial Office Visit OB/Gynecology [address] [place], [place] [id number] Melony Pineda APRN.[facility] [address] [place] [address] OB/Gynecology Start: 02-07-2023 Behavioral Health Screening Behavioral Health Screening [facility] Start: 02-07-2023 Depression Assessment Depression Assessment [facility] Start: 2023 Screening for malignant neoplasm of cervix HPV Testing [facility] Start: 01-07-2023 End: 04-08-2023 CARRIER SCREEN, STANDARD [facility] Work Phone: Comment on above: Expected: 01/07/2023, Expires: 4 Start: 01-07-2023 End: 04-08-2023 Hemoglobin A1c in Blood [facility] Work Phone: Comment on above: Expected: 01/07/2023, Expires: 4 Start: 01-07-2023 End: 04-08-2023 HEMOGLOBIN EVALUATION CASCADE [facility] Work Phone: Comment on above: Expected: 01/07/2023, Expires: 4 Start: 01-07-2023 End: 04-08-2023 Hepatitis B virus surface Ag [Presence] in Serum [facility] Work Phone: Comment on above: Expected: 01/07/2023, Expires: 4 Start: 01-07-2023 End: 04-08-2023 Hepatitis C virus Ab [Presence] in Serum [facility] Work Phone: Comment on above: Expected: 01/07/2023, Expires: 4 Start: 01-07-2023 End: 04-08-2023 HIV 1+2 Ab [Presence] in Serum or Plasma by Immunoassay [facility] Work Phone: Comment on above: Expected: 01/07/2023, Expires: 4 Start: 01-07-2023 End: 04-08-2023 RUBELLA IGG AB [facility] Work Phone: Comment on above: Expected: 01/07/2023, Expires: 4 Start: 01-07-2023 End: 04-08-2023 SYPHILIS TOTAL W/REFLEX [facility] Work Phone: Comment on above: Expected: 01/07/2023, Expires: 4 Start: 01-07-2023 End: 04-08-2023 TYPE + SCREEN [facility] Work Phone: Comment on above: Expected: 01/07/2023, Expires: 4 Start: 10-08-2022 Covid-19 Vaccine ( season) Covid-19 Vaccine ( season) [facility] Start: 10-08-2022 Influenza vaccination [facility] Start: 02-07-2022 DEPRESSION ASSESSMENT DEPRESSION ASSESSMENT [facility] Start: 10-08-2021 Influenza vaccination [facility] Start: 02-07-2021 DEPRESSION ASSESSMENT DEPRESSION ASSESSMENT [facility] Start: 10-08-2020 Influenza vaccination INFLUENZA (#1) [facility] Start: 02-04-2012 Hepatitis B Vaccine (1 of 3 - 19+ 3-dose series) Hepatitis B Vaccine (1 of 3 - 19+ 3-dose series) [facility] Start: 2011 Annual PCP Team Chronic Disease Visit Annual PCP Team Chronic Disease Visit [facility] Start: 2011 Anxiety Screening Anxiety Screening [facility] Start: 2011 Depression Screening Depression Screening [facility] Start: 2011 Spirometry Spirometry [facility] Start: 2005 Adult depression screening assessment DEPRESSION SCREENING [facility] Start: 1999 Pneumococcal vaccination Pneumococcal Vaccine (1 - PCV) [facility] Start: 1998 COVID-19 VACCINE (#1) COVID-19 VACCINE (#1) [facility] Start: 1998 COVID-19 VACCINE (1) COVID-19 VACCINE (1) [facility] Start: 1993 COVID-19 VACCINE (#1) COVID-19 VACCINE (#1) [facility] Start: 1993 HEPATITIS B (1 of 3 - 3-dose series) HEPATITIS B (1 of 3 - 3-dose series) [facility] Start: 1993 Hepatitis B Vaccine (1 of 3 - 3-dose series) Hepatitis B Vaccine (1 of 3 - 3-dose series) [facility] Bacteria identified in Urine by Culture URINE CULTURE Microbiology Routine with uncertain dates in first trimester Encounter for supervision of other normal in first trimester 10 weeks gestation of 01/07/2023 9:34 AM EST [facility] Work Phone: Bacteria identified in Urine by Culture URINE CULTURE Microbiology Routine with uncertain dates in first trimester 06/06/2023 9:48 AM EDT [facility] Chlamydia trachomatis+Neisseria gonorrhoeae DNA [Presence] in Unspecified specimen by JOEL with probe detection GONORRHEA/CHLAMYDIA NAAT Lab Routine with uncertain dates in first trimester Encounter for supervision of other normal in first trimester 10 weeks gestation of 01/07/2023 9:34 AM EST [facility] Work Phone: Chlamydia trachomatis+Neisseria gonorrhoeae DNA [Presence] in Unspecified specimen by JOEL with probe detection GONORRHEA/CHLAMYDIA NAAT Lab Routine with uncertain dates in first trimester 06/06/2023 9:48 AM EDT [facility] nonstress test NON-S TRESS TEST Procedures Routine 39 weeks gestation of GDM (gestational diabetes mellitus), class A1 Ordered: 05/19/2021 [facility] Work Phone: Comment on above: Ordered: 05/19/2021 OBSTETRIC ULTRASOUND WHI OBSTETRIC ULTRASOUND WHI Anc Imaging Routine 38 weeks gestation of GDM (gestational diabetes mellitus), class A1 Ordered: 05/12/2021 [facility] Work Phone: Comment on above: Ordered: 05/12/2021 End: 01-13-2024 OBSTETRIC ULTRASOUND WHI OBSTETRIC ULTRASOUND WHI Anc Imaging Routine Dichorionic diamniotic twin in first trimester Once per month for 8 Occurrences starting 08/16/2023 until 01/13/2024 [facility] Work Phone: Comment on above: Once per month for 8 Occurrences startin g 08/16/2023 until 01/13/2024 PAP TEST PAP TEST Lab Rou jessica with uncertain dates in first trimester Screening for cervical cancer Screening for human papillomavirus 06/06/2023 9:48 AM EDT [facility] POC GIFT SHOP CLERK ULTRASOUND POC GIFT SHOP CLERK ULTRASO UND Anc Imaging Routine with uncertain dates in first trimester Ordered: 01/07/2023 [facility] Work Phone: Comment on above: Ordered: 01/07/2023 POC GIFT SHOP CLERK ULTRASOUND POC GIFT SHOP CLERK ULTRASO UND Anc Imaging Routine with uncertain dates in first trimester Ordered: 06/06/2023 [facility] Work Phone: Comment on above: Ordered: 06/06/2023 ROUTINE, GR OUP B STREP PCR ROUTINE, GROUP B STREP PCR Microbiology Routine 36 weeks gestation of Gestational diabetes mellitus, class A1 Ordered: 05/04/2021 [facility] Work Phone: Comment on above: Ordered: 05/04/2021 ROUTINE, GR OUP B STREP PCR ROUTINE, GROUP B STREP PCR Microbiology Routine 35 weeks gestation of 12/15/2023 11:31 AM EST [facility] Work Phone: UA DIP, URINE (POC) UA DIP, URIN E (POC) Lab Routine 36 weeks gestation of Ordered: 05/04/2021 [facility] Work Phone: Comment on above: Ordered: 05/04/2021 URINE OB DIP B/O URINE OB DIP B/ O Lab Routine 39 weeks gestation of GDM (gestational diabetes mellitus), class A1 Ordered: 05/19/2021 [facility] Work Phone: Comment on above: Ordered: 05/19/2021 URINE OB DIP B/O URINE OB DIP B/ O Lab Routine Supervision of high risk in third trimester Anemia complicating , third trimester Gestational diabetes mellitus (GDM), antepartum, gestational diabetes method of control unspecified Dichorionic diamniotic twin in third trimester Benign gestational thrombocytopenia in third trimester (HCC) Ordered: 12/08/2023 [facility] Work Phone: Comment on above: Ordered: 12/08/2023 [facility] Immunizations Immunization Date Immunization Notes Care Provider [facility] 11-24-2023 respiratory syncytia l virus (RSV) vaccine, bivalent (ABRYSVO) Harrison Cam MD Work Phone: [facility] 11-10-2023 influenza, seasonal, injectable Harrison Cam MD Work Phone: [facility] 11-10-2023 tetanus toxoid, redu isabel diphtheria toxoid, and acellular pertussis vaccine, adsorbed Harrison Cam MD Work Phone: [facility] 12-04-2021 influenza virus vacc ine, unspecified formulation Demetrius Bravo PA-C Work Phone: [facility] 03-02-2021 tetanus toxoid, redu isabel diphtheria toxoid, and acellular pertussis vaccine, adsorbed Samy Delaney MD Work Phone: [facility] 05-02-2019 tuberculin skin test ; purified protein derivative solution, intradermal Ob Ultrasound Work Phone: [facility] 04-24-2019 tuberculin skin test ; purified protein derivative solution, intradermal Ob Ultrasound Work Phone: [facility] 06-26-2008 human papilloma viru s vaccine, quadrivalent Samy Delaney MD Work Phone: [facility] Work Phone: 02-23-2008 hepatitis A vaccine, pediatric/adolescent dosage, 2 dose schedule Samy Delaney MD Work Phone: [facility] Work Phone: 02-23-2008 human papilloma viru s vaccine, quadrivalent Samy Delaney MD Work Phone: [facility] Work Phone: 08-22-2006 hepatitis A vaccine, pediatric/adolescent dosage, 2 dose schedule Samy Delaney MD Work Phone: [facility] Work Phone: 08-22-2006 human papilloma viru s vaccine, quadrivalent Samy Delaney MD Work Phone: [facility] Work Phone: 08-22-2006 meningococcal polysaccharide (groups A, C, Y and W-135) diphtheria toxoid conjugate vaccine (MCV4P) Samy Delaney MD Work Phone: [facility] Work Phone: 08-22-2006 tetanus toxoid, redu isabel diphtheria toxoid, and acellular pertussis vaccine, adsorbed Samy Delaney MD Work Phone: [facility] Work Phone: 12-14-2004 influenza virus vacc ine, whole virus Samy Delaney MD Work Phone: [facility] Work Phone: Payers Date Payer Category Payer Medicaid [employer] [id number] 2022-Present [phone] [address] [place] [address] Medicaid [id number] 2022 Medicaid [id number] 2022 Private Health Insurance [employer]ICAID [facility] [id number] 2022-Present [address] [address] [place] [address] Medicaid [id number] 2021 Unknown [id number] 2021 Medicaid MEDICAID [facility] MEDICAID [id number] 2021-Present [phone] [address] [place] [address] Medicaid [id number] 1993 Unknown [id number] 1993 Unknown [id number] 1993 Unknown [id number] 1993 Unknown [id number] Social History Date Type Detail Facility Start: 11-04-2014 End: 01-07-2023 Tobacco smoking status NHIS Never smoked tobacco [facility] Start: 11-04-2014 End: 01-07-2023 Tobacco use and exposure Smokeless tobacco non-user [facility] Start: 05-04-2021 End: 12-22-2023 Alcohol intake Ex-drinker (finding) [facility] Start: 11-13-2020 Education 21 [facility] Start: 09-02-2020 [facility] Start: 1995 Sex Assigned At Not on file C [facility] Start: 04-24-2021 End: 12-27-2021 Exposure to SARS-CoV-2 (event) Not sure [facility] Start: 09-13-2022 End: 10-13-2023 History of Social function [facility] Start: 09-13-2022 End: 10-13-2023 Tobacco use panel [facility] National Score (1-100), lower number is lower risk 88 [facility] Sex Assigned At Female [facility] NEGATED: Highlighted rowStart: JORDIF History of tobacco use Passive smoker [facility] Work Phone: Medical Equipment Procedure Code Equipment Code Equipment Original Text Equipment Identifier Dates [id number], [id number] Start: 03-16-2021 Comment on above: 1 Strip four times d aily. Use as instructed 1 Each four times da jose. Use as instructed Goals Date Patient Goal Desired Activity /State Personal health goal Personal health goal Functional Status Date Assessment Result Facility 06-27-2023 Functional Status [facility] 06-27-2023 Functional Status [facility] 02-06-2023 Functional Status Ambulation in [place], Ambulation in Room [facility] 11-02-2022 Functional Status Activity Alexander tance [facility] 11-02-2022 Functional Status ID band on, Call device within reach, Bed in low position, Wheels locked, Upper/Half-Length side-rails up, Visitor at bedside [facility] Mental Status Date Assessment Result Facility 06-27-2023 Mental Status Orientation Oriented x 4 [facility] 06-27-2023 Mental Status [facility] 02-06-2023 Mental Status Oriented x 4 [facility] 11-02-2022 Mental Status Orientation Oriented x 4 [facility] 11-02-2022 Mental Status [facility] Clinical Notes 03-04-2021 to 12-23-2023 Lg Munson MD - 12/23/2023 9:15 AM Lg Mcarthur MD - 12/23/2023 9:12 AM Lg Mcarthur MD - 12/23/2023 9:12 AM ESTPrenatal Quick Notes - Lg Munson MD - 12/22/2023 10:44 AM EST Note Date & Type Note Facility 12-23-2023 Note HNO ID: [id number] Author: LG MUNSON MD Service: ? Author Type: Physician Type: Progress Notes Filed: 12/23/2023 09:16 Note Text: NST SUMMARY PROVIDER ASSESSMENT AND INTERPRETATION Cheli Osman is a 28 year old female, , who is at 37w0d with an BRODERICK of 01/13/2024, by Ultrasound dating method. Indications for NST: Diabetes - Diet Controlled and Other: twin Baseline: 130/135 Variability: Moderate/moderate Accelerations: Present 15 X 15 Decelerations: None Contractions: TOCO: None Interpretation: Reactive x 2 SIGNATURE: Lg Munson DO [facility] 12-23-2023 History of Presen t illness Narrative NST SUMMARY PROVIDER ASSESSMENT AND INTERPRETATION Cheli Osman is a 28 year old female, , who is at 37w0d with an BRODERICK of 01/13/2024, by Ultrasound dating method. Indications for NST: Diabetes - Diet Controlled and Other: twin Baseline: 130/135 Variability: Moderate/moderate Accelerations: Present 15 X 15 Decelerations: None Contractions: TOCO: None Interpretation: Reactive x 2 SIGNATURE: Lg Munson DO documented in this encounter [facility] 12-23-2023 History and physical note DATE OF SERVICE: December 23, 2023 PROBLEM: di di twin , A1GDM, obesity, anemia, gestational thrombocytopenia DIAGNOSIS: as above PAST SURGICAL HISTORY: PAST SURGICAL HISTORY Procedure Laterality Date D&C SUCTION 02/18/2023 16 week loss, 13 week size embryo TONSILLECTOMY AND ADENOIDECTOMY HX PAST MEDICAL HISTORY: PAST MEDICAL HISTORY Diagnosis Date Antepartum anemia complicating in first trimester 11/21/2020 Asthma childhood -no attacks since age 9 Diet controlled gestational diabetes mellitus (GDM) in third trimester 03/16/2021 Fibroid 2021 Fibroid(s): Size 48 mm x 34 mm x 51 mm. Mean 44.3 mm. Vol 43.580 cm . Anterior, Etgr-Ukyly-Iwivatw disease Miscarriage 02/2023 depression After late miscarriage-no meds SUBJECTIVE: pt doing well. Blood sugars well controlled with diet SOCIAL HISTORY: Social History Tobacco Use Smoking status: Never Passive exposure: Never Smokeless tobacco: Never Vaping Use Vaping status: Never Used Substance Use Topics Alcohol use: Not Currently Drug use: Never ALLERGIES No Known Allergies Current Outpatient Medications on File Prior to Visit Medication Sig blood sugar diagnostic test strip Use as directed to check glucose levels up to seven times daily. Lancets Use as directed to check glucose levels up to seven times daily. pyridoxine HCl, vitamin B6, (VITAMIN B-6 ORAL) Take by mouth. diphenhydramine HCl (UNISOM, DIPHENHYDRAMINE, ORAL) Take by mouth. aspirin 81 mg cap Take 1 tablet by mouth once daily. docusate sodium (COLACE) 100 mg capsule Take 1 capsule by mouth two times a day. polyethylene glycol 3350 (MIRALAX) 17 gram packet Take 1 Packet by mouth once daily. Dissolve dose in 4 - 8 ounces of liquid and take as directed. acetaminophen (TYLENOL ORAL) Take by mouth as needed. cranberry fruit extract (CRANBERRY EXTRACT ORAL) Take by mouth. ferrous sulfate (IRON) 325 mg (65 mg iron) tablet Take 1 tablet by mouth two times a day. (Patient taking differently: Take 325 mg by mouth two times a day. Taking every 3rd day currently) multivitamin (CLASSIC ) 28 mg iron- 800 mcg tab(s) Take 1 tablet by mouth once daily. No current facility-administered medications on file prior to visit. OBJECTIVE: VITALS: BP 118/70 Wt 89.2 kg (196 lb 9.6 oz) LMP 04/01/2023 (Exact Date) BMI 37.15 kg/m HEENT: Normocephalic, atraumatic, Mucus membranes moist without lesions. NECK: Soft and Supple. No adenopathy , thyromegaly or bruits. SKIN: No lesions. CHEST: No increased respiratory effort. HEART: Regular rate. BACK: Nontender. ABDOMEN: Soft, non-tender, non-distended, no masses, no hepatosplenomegaly. LOWER EXTREMITIES: There was no pitting edema, no palpable cords and no skin changes. ASSESSMENT: pre op PLAN: 1) Discussed r/b/a primary section. Baby A vertex today and baby B transverse. Patient does not want to try for a vaginal delivery. Patient does not want sterilization. The rationale for the proposed surgery was discussed in addition to risks, benefits, and alternatives. General pre- and post-operative care was reviewed. Questions were answered. After discussion, the patient indicated a desire to proceed with the planned surgery. Lg Munson DO Medical Decision Making: Problems: Moderate: 2+ stable chronic illnesses Risk: High: Decision on elective major surgery w/ risk factors Medical Decision Making Level: 4 - Moderate Health 12-23-2023 History and physical note DATE OF SERVICE: December 23, 2023 PROBLEM: di di twin , A1GDM, obesity, anemia, gestational thrombocytopenia DIAGNOSIS: as above PAST SURGICAL HISTORY: PAST SURGICAL HISTORY Procedure Laterality Date D&C SUCTION 02/18/2023 16 week loss, 13 week size embryo TONSILLECTOMY AND ADENOIDECTOMY HX PAST MEDICAL HISTORY: PAST MEDICAL HISTORY Diagnosis Date Antepartum anemia complicating in first trimester 11/21/2020 Asthma childhood -no attacks since age 9 Diet controlled gestational diabetes mellitus (GDM) in third trimester 03/16/2021 Fibroid 2021 Fibroid(s): Size 48 mm x 34 mm x 51 mm. Mean 44.3 mm. Vol 43.580 cm . Anterior, Lsps-Hpeaf-Lziobks disease Miscarriage 02/2023 depression After late miscarriage-no meds SUBJECTIVE: pt doing well. Blood sugars well controlled with diet SOCIAL HISTORY: Social History Tobacco Use Smoking status: Never Passive exposure: Never Smokeless tobacco: Never Vaping Use Vaping status: Never Used Substance Use Topics Alcohol use: Not Currently Drug use: Never ALLERGIES No Known Allergies Current Outpatient Medications on File Prior to Visit Medication Sig blood sugar diagnostic test strip Use as directed to check glucose levels up to seven times daily. Lancets Use as directed to check glucose levels up to seven times daily. pyridoxine HCl, vitamin B6, (VITAMIN B-6 ORAL) Take by mouth. diphenhydramine HCl (UNISOM, DIPHENHYDRAMINE, ORAL) Take by mouth. aspirin 81 mg cap Take 1 tablet by mouth once daily. docusate sodium (COLACE) 100 mg capsule Take 1 capsule by mouth two times a day. polyethylene glycol 3350 (MIRALAX) 17 gram packet Take 1 Packet by mouth once daily. Dissolve dose in 4 - 8 ounces of liquid and take as directed. acetaminophen (TYLENOL ORAL) Take by mouth as needed. cranberry fruit extract (CRANBERRY EXTRACT ORAL) Take by mouth. ferrous sulfate (IRON) 325 mg (65 mg iron) tablet Take 1 tablet by mouth two times a day. (Patient taking differently: Take 325 mg by mouth two times a day. Taking every 3rd day currently) multivitamin (CLASSIC ) 28 mg iron- 800 mcg tab(s) Take 1 tablet by mouth once daily. No current facility-administered medications on file prior to visit. OBJECTIVE: VITALS: BP 118/70 Wt 89.2 kg (196 lb 9.6 oz) LMP 04/01/2023 (Exact Date) BMI 37.15 kg/m HEENT: Normocephalic, atraumatic, Mucus membranes moist without lesions. NECK: Soft and Supple. No adenopathy , thyromegaly or bruits. SKIN: No lesions. CHEST: No increased respiratory effort. HEART: Regular rate. BACK: Nontender. ABDOMEN: Soft, non-tender, non-distended, no masses, no hepatosplenomegaly. LOWER EXTREMITIES: There was no pitting edema, no palpable cords and no skin changes. ASSESSMENT: pre op PLAN: 1) Discussed r/b/a primary section. Baby A vertex today and baby B transverse. Patient does not want to try for a vaginal delivery. Patient does not want sterilization. The rationale for the proposed surgery was discussed in addition to risks, benefits, and alternatives. General pre- and post-operative care was reviewed. Questions were answered. After discussion, the patient indicated a desire to proceed with the planned surgery. Lg Munson DO Medical Decision Making: Problems: Moderate: 2+ stable chronic illnesses Risk: High: Decision on elective major surgery w/ risk factors Medical Decision Making Level: 4 - Moderate documented in this encounter [facility] 12-22-2023 Progress note Formatting of t his note might be different from the original. SW- Dry cough for 2 weeks. No fevers, CP, SOB. Some abdominal pain from coughing. No vb, lof. Good FM x 2 PE: Gen- NAD, well appearing Abd- Soft, gravid, NT See flowsheet A/p 36 wk gestation - Pre op today Lg Munson DO [facility] 12-22-2023 Miscellaneous Notes SW- Dry cough for 2 weeks. No fevers, CP, SOB. Some abdominal pain from coughing. No vb, lof. Good FM x 2 PE: Gen- NAD, well appearing Abd- Soft, gravid, NT See flowsheet A/p 36 wk gestation - Pre op today Lg Munson DO documented in this encounter [facility] 12-22-2023 Instructions Taryn Crabtree MA - 12/22/2023 10:25 AM EST SEQUENTIAL SCREENINGS The [facility] offers sequential screenings for women who are [...] It will require an appointment with our glass technician/installer. This is not an ultrasound performed by [...] the above symptoms, contact our office at [phone] and ask to speak with a nurse. After hours, you can call doctors registry at [phone] OR call [facility] at [phone] and ask to have the doctor bariatric surgeon paged. If you consider this an emergency, dial [phone] or go to your nearest emergency department. NEED HELP? Are you dealing with a violent or abusive relationship? Are you a victim of rape or sexual assult? Call [facility] ([place]) 24 hour Crisis Hotline: 544.947.8410 or 861-369-2854. MANUAL Your Guide to a Healthy manual is now on-line. Visit [email or web address] to download your free copy documented in this encounter [facility] 12-15-2023 Progress note Formatting of t his note might be different from the original. KJ - VB No. LOF No. CTXS No. Movement: present x2. Other c/o: No. Medication list reviewed. Physical Exam See Flow Sheet Gen: no accute distress, well appearing Abd: soft, nontender, gravid : external genitalia: normal A/P 35w6d Estimated Date of Delivery: 01/13/24 Anemia - continue IV iron Di/di twins - growth US last week GDMA1 - normal BS per patient Reactive NST today MOD - scheduled primary PPBC - considering NEXPLANON PTL precautions reviewed, Kick counts reviewed. Harrison Cam MD [facility] 12-15-2023 Miscellaneous Notes KJ - VB No. LOF No. CTXS No. Movement: present x2. Other c/o: No. Medication list reviewed. Physical Exam See Flow Sheet Gen: no accute distress, well appearing Abd: soft, nontender, gravid : external genitalia: normal A/P 35w6d Estimated Date of Delivery: 01/13/24 Anemia - continue IV iron Di/di twins - growth US last week GDMA1 - normal BS per patient Reactive NST today MOD - scheduled primary PPBC - considering NEXPLANON PTL precautions reviewed, Kick counts reviewed. Harrison Cam MD documented in this encounter [facility] 12-15-2023 Note HNO ID: [id number] Author: HARRISON CAM MD Service: ? Author Type: Physician Type: Progress Notes Filed: 12/15/2023 12:33 Note Text: NST SUMMARY PROVIDER ASSESSMENT AND INTERPRETATION Cheli Osman is a 28 year old female, , who is at 35w6d with an BRODERICK of 01/13/2024, by Ultrasound dating method. Indications for NST: Gestational Diabetes - Diet Controlled, Obesity, and Other: Di/di twins Baseline: A-130 B - 140 Variability: Moderate Accelerations: Present 15 X 15 Decelerations: Variable Contractions: TOCO: None Interpretation: Reactive x2 SIGNATURE: Harrison Cam MD [facility] 12-15-2023 History of Presen t illness Narrative NST SUMMARY PROVIDER ASSESSMENT AND INTERPRETATION Cheli Osman is a 28 year old female, , who is at 35w6d with an BRODERICK of 01/13/2024, by Ultrasound dating method. Indications for NST: Gestational Diabetes - Diet Controlled, Obesity, and Other: Di/di twins Baseline: A-130 B - 140 Variability: Moderate Accelerations: Present 15 X 15 Decelerations: Variable Contractions: TOCO: None Interpretation: Reactive x2 SIGNATURE: Harrison Cam MD documented in this encounter [facility] 12-15-2023 Instructions Yue Johnson MA - 12/15/2023 9:26 AM EST SEQUENTIAL SCREENINGS The [facility] offers sequential screenings for women who are [...] It will require an appointment with our glass technician/installer. This is not an ultrasound performed by [...] the above symptoms, contact our office at [phone] and ask to speak with a nurse. After hours, you can call doctors registry at [phone] OR call [facility] at [phone] and ask to have the doctor bariatric surgeon paged. If you consider this an emergency, dial 9-1-5 or go to your nearest emergency department. NEED HELP? Are you dealing with a violent or abusive relationship? Are you a victim of rape or sexual assult? Call [facility] ([place]) 24 hour Crisis Hotline: 719.248.9811 or 953-775-0650. MANUAL Your Guide to a Healthy manual is now on-line. Visit [email or web address] to download your free copy documented in this encounter [facility] 12-08-2023 Progress note Formatting of t his note might be different from the original. SW- pt doing well. No ctx, vb, lof. Good FM x 2. PE: Gen- NAD, well appearing Abd- Obese See flowsheet A/p 34 week gestation - Di/di twin : Growth ultrasound today and final report pending - MOD: Patient is requesting a scheduled section. Surgery sheet completed. Discussed r/b/a section vs vaginal delivery. She understands she can try for a vaginal delivery, and she understands risks with a section. Baby A vertex and baby B transverse, and discussed possibility of ECV or breech extraction. Patient states she has been 100% certain for awhile that she desires a section - A1GDM: Well controlled - Anemia: Cont oral iron - RTO 1 week for GBS Lg Munson DO [facility] 12-08-2023 Miscellaneous Notes SW- pt doing well. No ctx, vb, lof. Good FM x 2. PE: Gen- NAD, well appearing Abd- Obese See flowsheet A/p 34 week gestation - Di/di twin : Growth ultrasound today and final report pending - MOD: Patient is requesting a scheduled section. Surgery sheet completed. Discussed r/b/a section vs vaginal delivery. She understands she can try for a vaginal delivery, and she understands risks with a section. Baby A vertex and baby B transverse, and discussed possibility of ECV or breech extraction. Patient states she has been 100% certain for awhile that she desires a section - A1GDM: Well controlled - Anemia: Cont oral iron - RTO 1 week for GBS Lg Munson DO documented in this encounter [facility] 12-08-2023 Note Indication Evaluation of growth, Di-Di twins Maternal obesity, BMI >30, Gestational diabetes - diet controlled Impression Live, dichorionic/diamniotic intrauterine . - The biometry is consistent with the assigned gestational dating for both fetuses. - The EFW is 2466 g grams, at the 39%. AC is at the 48% for Fetus A. - The EFW is 2548 g grams, at the 48% percentile. AC is at the 86% percentile for Fetus B. - Normal amniotic fluid volume with an MVP of 5.3 cm for Fetus A and 4.4 cm for Fetus B. - The placenta is anterior, fundal for Fetus A and anterior, fundal for Fetus B. - No malformations visualized on a limited survey as detailed below. Recommendations Additional follow-up as clinically indicated. Maternal Assessment Height 155 cm Height (ft) 5 ft Height (in) 1 in Physical Exam Initial weight (lb) 186 lb Initial BMI 35.14 kg/m Maternal assessment other: 4 Para 1 Method Transabdominal ultrasound examination. View: Suboptimal view: limited by position Twin . Number of fetuses: 2. Dichorionic-diamniotic Dating GA by prior assessment 34 w + 6 d BRODERICK by prior assessment: 01/13/2024 Ultrasound examination on: 12/08/2023 GA by U/S based upon: AC, BPD, Femur, HC GA by U/S 33 w + 5 d BRODERICK by U/S: 01/21/2024 GA by U/S based upon (Fetus 2): AC, BPD, Femur, HC GA by U/S (Fetus 2) 33 w + 2 d BRODERICK by U/S (Fetus 2): 01/24/2024 Assigned: based on stated BRODERICK, selected on 11/10/2023 Assigned GA 34 w + 6 d Assigned BRODERICK: 01/13/2024 Fetus A: General Evaluation Cardiac activity present. FHR 142 bpm. movements: present. Presentation: cephalic, maternal right Placenta: Placental site: anterior, fundal Umbilical cord: 3 vessel cord Amniotic fluid: Amount of AF: normal amount. MVP 5.3 cm Fetus B: General Evaluation Cardiac activity present. FHR 154 bpm. movements: present. Presentation: transverse head right, superior Placenta: Placental site: anterior, fundal. Umbilical cord: marginal insertion, 3 vessel cord Amniotic fluid: Amount of AF: normal amount. MVP 4.4 cm Fetus A: Growth Overview Exam date GA BPD (mm) HC (mm) AC (mm) FL (mm) HL (mm) EFW (g) 08/16/2023 18w 4d 41.2 47% 154.9 42% 137.6 67% 30 86% 29.7 89% 272 73% 09/15/2023 22w 6d 52.6 16% 206.8 46% 192.6 77% 43 93% 631 85% 10/13/2023 26w 6d 64 12% 253.9 59% 236 74% 49.1 55% 1070 60% 11/10/2023 30w 6d 73.5 8% 297.3 74% 278.5 77% 59.2 60% 1827 67% 12/08/2023 34w 6d 79.2 <1% 310.7 31% 306.3 48% 67.4 61% 2466 39% Fetus B: Growth Overview Exam date GA BPD (mm) HC (mm) AC (mm) FL (mm) HL (mm) EFW (g) 08/16/2023 18w 4d 42.5 64% 155.6 44% 135.3 61% 31.8 95% 29.8 90% 280 80% 09/15/2023 22w 6d 53.7 26% 200.1 29% 188 65% 41.4 82% 581 64% 10/13/2023 26w 6d 65.6 26% 245.4 36% 229.7 57% 50.8 76% 1040 51% 11/10/2023 30w 6d 73 6% 276.9 23% 260.9 28% 60.7 80% 1614 32% 12/08/2023 34w 6d 77.6 <1% 299.1 11% 321.7 86% 66.1 42% 2548 48% Fetus A: Biometry Standard BPD 79.2 mm 31w 6d <1% Hadlock OFD 114.1 mm 35w 4d 62% Nicolaides HC 310.7 mm 33w 6d 31% Wilton AC 306.3 mm 34w 4d 48% Hadlock Femur 67.4 mm 34w 2d 61% Wilton EFW 2,466 g 34w 3d 39% Hadlock EFW discordance 3.2 % EFW (lb) 5 lb EFW (oz) 7 oz EFW by: Hadlock (HC-AC-FL) Extended Guillotine Trimmer 5.2 mm Extremities / Bony Struc FL / HC 0.22 Other Structures FHR 142 bpm Fetus B: Biometry Standard BPD 77.6 mm 31w 1d <1% Hadlock OFD 108.1 mm 32w 3d 21% Nicolaides HC 299.1 mm 32w 2d 11% Wilton AC 321.7 mm 36w 1d 86% Hadlock Femur 66.1 mm 33w 5d 42% Wilton EFW 2,548 g 34w 5d 48% Hadlock EFW discordance 3.2 % EFW (lb) 5 lb EFW (oz) 10 oz EFW by: Hadlock (HC-AC-FL) Extended Guillotine Trimmer 5.1 mm Extremities / Bony Struc FL / HC 0.22 Other Structures FHR 154 bpm Fetus A: Anatomy Lateral ventricles: normal Cavum septi pellucidi: normal (more content not included)... [facility] 12-08-2023 Instructions Heather Hanson MA - 12/08/2023 1:58 PM EDT SEQUENTIAL SCREENINGS The [facility] offers sequential screenings for women who are [...] It will require an appointment with our glass technician/installer. This is not an ultrasound performed by [...] the above symptoms, contact our office at [phone] and ask to speak with a nurse. After hours, you can call doctors registry at [phone] OR call [facility] at [phone] and ask to have the doctor bariatric surgeon paged. If you consider this an emergency, dial 9-1-7 or go to your nearest emergency department. NEED HELP? Are you dealing with a violent or abusive relationship? Are you a victim of rape or sexual assult? Call [facility] ([place]) 24 hour Crisis Hotline: 655.488.5409 or 579-418-0680. MANUAL Your Guide to a Healthy manual is now on-line. Visit [email or web address] to download your free copy documented in this encounter [facility] 12-07-2023 Telephone encounter Note Spoke with patient and scheduled first dose for tomorrow. Patient will stop by HemOnc office to schedule second dose to coincide with her next OBGYN appt. Danielle Thomas [facility] 12-07-2023 Miscellaneous Notes Spoke with patient and scheduled first dose for tomorrow. Patient will stop by HemOnc office to schedule second dose to coincide with her next OBGYN appt. Danielle Thomas Treatment plan signed and PA approved for Venofer 200 mg IV x 2 doses. Ready to schedule. documented in this encounter [facility] 12-07-2023 Telephone encounter Note Treatment plan signed and PA approved for Venofer 200 mg IV x 2 doses. Ready to schedule. [facility] 12-01-2023 Telephone encounter Note Patient notified. Orders were already filed by KJ for 2 additional doses. Prior auth pending. Laisha Marsh RN [facility] 12-01-2023 Miscellaneous Notes Patient notified. Orders were already filed by KJ for 2 additional doses. Prior auth pending. Laisha Marsh RN ----- Message from Harrison Cam MD sent at 12/01/2023 12:11 PM EDT ----- Recommend 2 additional doses of IV iron. Discussed patient with . Harrison Cam MD documented in this encounter [facility] 12-01-2023 Note HNO ID: [id number] Author: LEONORA CHAPMAN RN Service: ? Author Type: Registered Nurse Type: Progress Notes Filed: 12/01/2023 14:12 Note Text: Repeat referral for additional IV iron infusions. Labs after Venofer 200 mg IV x 3 doses Latest Ref Rng 11/24/2023 11/28/2023 WBC 3.70 - 11.00 k/uL 7.10 RBC 3.90 - 5.20 m/uL 3.55 (L) Hemoglobin 11.5 - 15.5 g/dL 10.1 (L) Hematocrit 36.0 - 46.0 % 31.7 (L) MCV 80.0 - 100.0 fL 89.3 MCH 26.0 - 34.0 pg 28.5 MCHC 30.5 - 36.0 g/dL 31.9 RDW-CV 11.5 - 15.0 % 15.1 (H) Platelet Count 150 - 400 k/uL 129 (L) MPV 9.0 - 12.7 fL 10.5 Absolute nRBC <0.01 k/uL <0.01 Iron 50 - 170 ug/dL 89 TIBC 221 - 481 ug/dL 455 Transferrin Saturation 22.0 - 44.0 % 19.6 (L) Retic % 0.4 - 2.0 % 2.6 (H) Abs Retic 0.018 - 0.100 M/uL 0.094 Ferritin 8.0 - 307.0 ng/mL 78.5 Folate >3.0 ng/mL 19.3 Methylmalonic Acid <=0.40 umol/L 0.30 Vitamin B12 193 - 986 pg/mL 343 Erythropoietin 2.6 - 18.5 mIU/mL 29.5 (H) Requesting 2 more doses of Venofer. [facility] 12-01-2023 History of Presen t illness Narrative Repeat referral for additional IV iron infusions. Labs after Venofer 200 mg IV x 3 doses Latest Ref Rng 11/24/2023 11/28/2023 WBC 3.70 - 11.00 k/uL 7.10 RBC 3.90 - 5.20 m/uL 3.55 (L) Hemoglobin 11.5 - 15.5 g/dL 10.1 (L) Hematocrit 36.0 - 46.0 % 31.7 (L) MCV 80.0 - 100.0 fL 89.3 MCH 26.0 - 34.0 pg 28.5 MCHC 30.5 - 36.0 g/dL 31.9 RDW-CV 11.5 - 15.0 % 15.1 (H) Platelet Count 150 - 400 k/uL 129 (L) MPV 9.0 - 12.7 fL 10.5 Absolute nRBC <0.01 k/uL <0.01 Iron 50 - 170 ug/dL 89 TIBC 221 - 481 ug/dL 455 Transferrin Saturation 22.0 - 44.0 % 19.6 (L) Retic % 0.4 - 2.0 % 2.6 (H) Abs Retic 0.018 - 0.100 M/uL 0.094 Ferritin 8.0 - 307.0 ng/mL 78.5 Folate >3.0 ng/mL 19.3 Methylmalonic Acid <=0.40 umol/L 0.30 Vitamin B12 193 - 986 pg/mL 343 Erythropoietin 2.6 - 18.5 mIU/mL 29.5 (H) Requesting 2 more doses of Venofer. documented in this encounter [facility] 12-01-2023 Telephone encounter Note ----- Message from Harrison Cam MD sent at 12/01/2023 12:11 PM EDT ----- Recommend 2 additional doses of IV iron. Discussed patient with . Harrison Cam MD [facility] 11-30-2023 Nurse Note Summary: [employer] Operator Note Hospital Name: [place] Completed by: Mya Melo, JARETH Date: November 30, 2023 [employer] Resource Time: 2.5 hours: Primary Referral Code: A Phone consult Cheli Osman [phone] Preferred Name: Bibiana OB Provider: Harrison Cam Estimated Date of Delivery: 01/13/24 Designated Support People: Samy LEWIS) as primary support person, possibly an additional person (his mother or Bibiana's friend) Labor Plan: At this time, Bibiana is interested in a scheduled C/S. She plans to breastfeed baby girls, Milagros and Lisa. Primary Trigger Themes: Worry or anxiety about baby Primary Triggers: Labor & Strategies: At the time of this consult, Bibiana felt that she was leaning toward having a scheduled C/S. She is concerned about the possibility of having to recover from both a vaginal and a C/S. She also expressed concern about having an emergency C/S. Her consult was spent discussing what to expect on the day of a scheduled C/S as far as timing, order of procedures (Admission questions, IV start, anesthesia consent etc.). It was reassuring to Bibiana to have an idea of what to expect. A discussion was had about what to expect in the OR and descriptions and photos of the OR were provided. Bibiana would like to be able to have physical contact with the babies in the OR, even if for only a few moments. She would like the girls to be able to have skin to skin time with Samy in the OR, but she would like to have them in recovery. She would like the standard delay in cord clamping if possible. She would like it if Samy could trim the cords. Bibiana breastfed her first daughter, 2.5 year old Candi. She plans to breastfeed the twins but is nervous about navigating with two babies. She would like support from consultants. Other Patient Preferences: If the babies need to go to NICU, Bibiana would like Samy to be with them as soon as possible. Additional Comments/Significant Information: Candi is Bibiana's daughter with her first . The twins are Samy's first children. Be aware that he may need more help with learning to care for babies. Bibiana is dealing with complicated family dynamics at this time. Her ex-, who she describes as emotionally unsafe for her, currently lives with her mother. For this reason, Bibiana would prefer that her mother not visit her in the hospital. [facility] 11-30-2023 Nurse Note Summary: [employer] Operator Note Hospital Name: [place] Completed by: Mya Melo RN Date: November 30, 2023 [employer] Resource Time: 2.5 hours: Primary Referral Code: A Phone consult Cheli Osman [phone] Preferred Name: [facility]iana OB Provider: Harrison Cam Estimated Date of Delivery: 01/13/24 Designated Support People: Samy (FOB) as primary support person, possibly an additional person (his mother or Bibiana's friend) Labor Plan: At this time, Bibiana is interested in a scheduled C/S. She plans to breastfeed baby girls, Milagros and Lisa. Primary Trigger Themes: Worry or anxiety about baby Primary Triggers: Labor & Strategies: At the time of this consult, Bibiana felt that she was leaning toward having a scheduled C/S. She is concerned about the possibility of having to recover from both a vaginal and a C/S. She also expressed concern about having an emergency C/S. Her consult was spent discussing what to expect on the day of a scheduled C/S as far as timing, order of procedures (Admission questions, IV start, anesthesia consent etc.). It was reassuring to Bibiana to have an idea of what to expect. A discussion was had about what to expect in the OR and descriptions and photos of the OR were provided. Bibiana would like to be able to have physical contact with the babies in the OR, even if for only a few moments. She would like the girls to be able to have skin to skin time with Samy in the OR, but she would like to have them in recovery. She would like the standard delay in cord clamping if possible. She would like it if Samy could trim the cords. Bibiana breastfed her first daughter, 2.5 year old Candi. She plans to breastfeed the twins but is nervous about navigating with two babies. She would like support from consultants. Other Patient Preferences: If the babies need to go to NICU, Bibiana would like Samy to be with them as soon as possible. Additional Comments/Significant Information: Candi is Bibiana's daughter with her first . The twins are Samy's first children. Be aware that he may need more help with learning to care for babies. Bibiana is dealing with complicated family dynamics at this time. Her ex-, who she describes as emotionally unsafe for her, currently lives with her mother. For this reason, Bibiana would prefer that her mother not visit her in the hospital. documented in this encounter [facility] 11-28-2023 Telephone encounter Note Yes, can have redness and swelling at the injection site. Recommend taking a Benadryl or Claritin to help decrease symptoms. If worsening would want to see for follow up. Marcia Beckett APRN.CNM [facility] 11-28-2023 Miscellaneous Notes Yes, can have redness and swelling at the injection site. Recommend taking a Benadryl or Claritin to help decrease symptoms. If worsening would want to see for follow up. Marcia Beckett APRN.CNM 33w3d Patient had RSV vaccination on 11/23 documented in this encounter [facility] 11-28-2023 Telephone encounter Note 33w3d Patient had RSV vaccination on 11/23 [facility] 11-24-2023 Miscellaneous Notes Addended by: HARRISON CAM on: 11/24/2023 04:46 PM Modules accepted: Orders KJ - VB No. LOF No. CTXS No. Movement: present x2. Other c/o: No. Medication list reviewed. Physical Exam See Flow Sheet Gen: no accute distress, well appearing Abd: soft, nontender, gravid TAUS: active fetus with fca x2 A/P 32w6d Estimated Date of Delivery: 01/13/24 Anemia - encouraged Fe & Regular PNV use. Repeat CBC today. Di/di twins - growth US in 2 weeks RSV vaccine today GDM - patient reports FBS in 80's and PPBS 115-140's. Encouraged patient to message BS log. PTL precautions reviewed, Kick counts reviewed. Harrison Cam MD documented in this encounter [facility] 11-24-2023 Note Addended by: HARRISON CAM on: 11/24/2023 04:46 PM Modules accepted: Orders [facility] 11-24-2023 Progress note Formatting of t his note might be different from the original. KJ - VB No. LOF No. CTXS No. Movement: present x2. Other c/o: No. Medication list reviewed. Physical Exam See Flow Sheet Gen: no accute distress, well appearing Abd: soft, nontender, gravid TAUS: active fetus with fca x2 A/P 32w6d Estimated Date of Delivery: 01/13/24 Anemia - encouraged Fe & Regular PNV use. Repeat CBC today. Di/di twins - growth US in 2 weeks RSV vaccine today GDM - patient reports FBS in 80's and PPBS 115-140's. Encouraged patient to message BS log. PTL precautions reviewed, Kick counts reviewed. Harrison Cam MD [facility] 11-24-2023 Instructions Viv Gaona MA - 11/24/2023 1:42 PM EDT SEQUENTIAL SCREENINGS The [facility] offers sequential screenings for women who are [...] It will require an appointment with our glass technician/installer. This is not an ultrasound performed by [...] the above symptoms, contact our office at [phone] and ask to speak with a nurse. After hours, you can call doctors registry at [phone] OR call [facility] at [phone] and ask to have the doctor bariatric surgeon paged. If you consider this an emergency, dial or go to your nearest emergency department. NEED HELP? Are you dealing with a violent or abusive relationship? Are you a victim of rape or sexual assult? Call [facility] ([place]) 24 hour Crisis Hotline: 306.913.5065 or 515-930-3663. MANUAL Your Guide to a Healthy manual is now on-line. Visit [email or web address] to download your free copy documented in this encounter [facility] 11-23-2023 Telephone encounter Note Agree with advice [facility] 11-23-2023 Miscellaneous Notes Agree with advice 32w5d Twins- Dichorionic-diamniotic Pt calls c/o cramping between lower abdomen into right hip that started 2 days ago. States feels like period cramping. Intermittent. Goes away with rest. Denies abdominal pain, vaginal bleeding/leaking of fluid, and contractions. Active movement. States hasn't taken tylenol in 2 days. Staying hydrated. States also has a cough/congestion. States BS are controlled. Advised Pt to take tylenol, rest, and stay hydrated. Advised to call office right away/go to ER if develops vaginal bleeding/severe abdominal pain/ decreased movement. Pt voiced understanding. OB appt tomorrow with TAISHA. Advised Pt message would be sent to o/c provider and we would call her if any additional advise needs to be given. Neil Gaytan RN documented in this encounter [facility] 11-23-2023 Telephone encounter Note 32w5d Twins- Dichorionic-diamniotic Pt calls c/o cramping between lower abdomen into right hip that started 2 days ago. States feels like period cramping. Intermittent. Goes away with rest. Denies abdominal pain, vaginal bleeding/leaking of fluid, and contractions. Active movement. States hasn't taken tylenol in 2 days. Staying hydrated. States also has a cough/congestion. States BS are controlled. Advised Pt to take tylenol, rest, and stay hydrated. Advised to call office right away/go to ER if develops vaginal bleeding/severe abdominal pain/ decreased movement. Pt voiced understanding. OB appt tomorrow with KJ. Advised Pt message would be sent to o/c provider and we would call her if any additional advise needs to be given. Neil Gaytan RN [facility] 11-15-2023 Note HNO ID: [id number] Author: SARAH PALUMBO RN Service: ? Author Type: Registered Nurse Type: Progress Notes Filed: 11/15/2023 09:33 Note Text: DIABETES SELF-MANAGEMENT EDUCATION AND SUPPORT Location: [place] Type of visit: Virtual (with video) individual I have communicated my name and active licensure. The patient's identity and physical location were verified at the time of this visit. Either the patient or their legal car sales representative has been informed of the risks and benefits of -- and alternatives to -- treatment through a remote evaluation and consents to proceed with the evaluation remotely. Types of DSMES: Initial/Comprehensive (add to or update ADA spreadsheet) PATIENT'S MAIN CONCERN TODAY: GDM with twins Support person present for education today: none Cognitive ability: Alert and oriented Motivation to learn: Interested Learning barriers identified by educator: none Method of instruction: written, verbal, and demonstration INTERVENTIONS/TOPICS COVERED: -Diabetes Pathophysiology: gestational diabetes basics -Monitoring: BG targets and rationale for HGM -Healthy Eating: impact of carbs on BG, foods with carbs, reading food labels, and carb counting tools (books, Internet, smartphone apps) -Physical Activity: benefits of exercise and impact of exercise on BG -Acute Complications: hypoglycemia s/sx/tx and hyperglycemia s/sx/tx -Chronic Complications: LT complications and importance of BG control to reduce risks DIABETES ASSESSMENT: Referring Physician: Lg Munson Previous Diabetes Education? Yes, if so when? 2020 What are you hoping to gain from this visit? asked/not answered In your words, what is gestational diabetes? asked/not answered What concerns you about having gestational diabetes? asked/not answered Diabetes History: 70 for fasting this morning Type of Diabetes: Gestational ( diabetes in ) How far along is your ? Weeks: 31 Does anyone in your family have diabetes? asked/not answered How do you learn best?asked/not answered Demographics: Highest level of education: High school or GED Race/Ethnic Origin: White/ Does you culture or faith require any of the following: No cultural/congregation practices affecting DM Do you have problems with: No difficulty seeing/hearing/reading/writing/s peaking Occupation: Stay at home currently during Support System: Do any of the following things get in the way of managing your diabetes? No self-identified issues Health History: Do you use tobacco? No Do you use alcohol? No In the past 12 months have you had any: Hospital Admissions: No ER Visits: Yes, Number of Times? 1 Primary Care Visits: Asked/not answered What are your general feelings about you overall health? Good Medical Issues/Complications: To whom are you reporting your blood sugar levels? OB PAST MEDICAL HISTORY Diagnosis Date Antepartum anemia complicating in first trimester 11/21/2020 Asthma childhood -no attacks since age 9 Diet controlled gestational diabetes mellitus (GDM) in third trimester 03/16/2021 Fibroid 2021 Fibroid(s): Size 48 mm x 34 mm x 51 mm. Mean 44.3 mm. Vol 43.580 cm?. Anterior, Nalq-Ixpbk-Jvwwqqy disease Miscarriage 02/2023 depression After late miscarriage-no meds Most recent A1C Lab Results Component Value Date HBA1C 5.5 06/06/2023 HBA1C 5.2 01/07/2023 Physical Activity: Do you do a regular exercise? Yes; how many days per week 5+ How long each day? Less than 30 min Type of Exercise: walking Sleep: Do you get at least 7 hrs of sleep most nights? no Current Outpatient Medications Medication Sig blood sugar diagnostic test strip Use as directed to check glucose levels up to seven times daily. Lancets Use as directed to check glucose levels up to seven times daily. pyridoxine HCl, vitamin B6, (VITAMIN B-6 ORAL) Take by mouth. diphenhydramine HCl (UNISOM, DIPHENHYDRAMINE, ORAL) Take by mouth. aspirin 81 mg cap Take 1 tablet by mouth once daily. docusate sodium (COLACE) 100 mg capsule Take 1 capsule by mouth two times a day. polyethylene glycol 3350 (MIRALAX) 17 gram packet Take 1 Packet by mouth once daily. Dissolve dose in 4 - 8 ounces of liquid and take as directed. acetaminophen (TYLENOL ORAL) Take by mouth as needed. cranberry fruit extract (CRANBERRY EXTRACT ORAL) Take by mouth. ferrous sulfate (IRON) 325 mg (65 mg iron) tablet Take 1 tablet by mouth two times a day. (Patient taking differently: Take 325 mg by mouth two times a day. Taking every 3rd day currently) multivitamin (CLASSIC ) 28 mg iron- 800 mcg tab(s) Take 1 tablet by mouth once daily. No current facility-administered medications for this visit. Injections Technique: Do you take insulin or a medication you inject for your diabetes? No Blood Sugar Monitoring: Do you have a blood sugar monitor? Yes; Management of Low Bl (more content not included)... [facility] 11-15-2023 History of Presen t illness Narrative DIABETES SELF-MANAGEMENT EDUCATION AND SUPPORT Location: [place] Type of visit: Virtual (with video) individual I have communicated my name and active licensure. The patient's identity and physical location were verified at the time of this visit. Either the patient or their legal car sales representative has been informed of the risks and benefits of -- and alternatives to -- treatment through a remote evaluation and consents to proceed with the evaluation remotely. Types of DSMES: Initial/Comprehensive (add to or update ADA spreadsheet) PATIENT'S MAIN CONCERN TODAY: GDM with twins Support person present for education today: none Cognitive ability: Alert and oriented Motivation to learn: Interested Learning barriers identified by educator: none Method of instruction: written, verbal, and demonstration INTERVENTIONS/TOPICS COVERED: -Diabetes Pathophysiology: gestational diabetes basics -Monitoring: BG targets and rationale for HGM -Healthy Eating: impact of carbs on BG, foods with carbs, reading food labels, and carb counting tools (books, Internet, smartphone apps) -Physical Activity: benefits of exercise and impact of exercise on BG -Acute Complications: hypoglycemia s/sx/tx and hyperglycemia s/sx/tx -Chronic Complications: LT complications and importance of BG control to reduce risks DIABETES ASSESSMENT: Referring Physician: Lg Munson Previous Diabetes Education? Yes, if so when? 2020 What are you hoping to gain from this visit? asked/not answered In your words, what is gestational diabetes? asked/not answered What concerns you about having gestational diabetes? asked/not answered Diabetes History: 68 for fasting this morning Type of Diabetes: Gestational ( diabetes in ) How far along is your ? Weeks: 31 Does anyone in your family have diabetes? asked/not answered How do you learn best?asked/not answered Demographics: Highest level of education: High school or GED Race/Ethnic Origin: White/ Does you culture or faith require any of the following: No cultural/congregation practices affecting DM Do you have problems with: No difficulty seeing/hearing/reading/writing/s peaking Occupation: Stay at home currently during Support System: Do any of the following things get in the way of managing your diabetes? No self-identified issues Health History: Do you use tobacco? No Do you use alcohol? No In the past 12 months have you had any: Hospital Admissions: No ER Visits: Yes, Number of Times? 1 Primary Care Visits: Asked/not answered What are your general feelings about you overall health? Good Medical Issues/Complications: To whom are you reporting your blood sugar levels? OB PAST MEDICAL HISTORY Diagnosis Date Antepartum anemia complicating in first trimester 11/21/2020 Asthma childhood -no attacks since age 9 Diet controlled gestational diabetes mellitus (GDM) in third trimester 03/16/2021 Fibroid 2021 Fibroid(s): Size 48 mm x 34 mm x 51 mm. Mean 44.3 mm. Vol 43.580 cm . Anterior, Htrh-Nmwmy-Cemvzgg disease Miscarriage 02/2023 depression After late miscarriage-no meds Most recent A1C Lab Results Component Value Date HBA1C 5.5 06/06/2023 HBA1C 5.2 01/07/2023 Physical Activity: Do you do a regular exercise? Yes; how many days per week 5+ How long each day? Less than 30 min Type of Exercise: walking Sleep: Do you get at least 7 hrs of sleep most nights? no Current Outpatient Medications Medication Sig blood sugar diagnostic test strip Use as directed to check glucose levels up to seven times daily. Lancets Use as directed to check glucose levels up to seven times daily. pyridoxine HCl, vitamin B6, (VITAMIN B-6 ORAL) Take by mouth. diphenhydramine HCl (UNISOM, DIPHENHYDRAMINE, ORAL) Take by mouth. aspirin 81 mg cap Take 1 tablet by mouth once daily. docusate sodium (COLACE) 100 mg capsule Take 1 capsule by mouth two times a day. polyethylene glycol 3350 (MIRALAX) 17 gram packet Take 1 Packet by mouth once daily. Dissolve dose in 4 - 8 ounces of liquid and take as directed. acetaminophen (TYLENOL ORAL) Take by mouth as needed. cranberry fruit extract (CRANBERRY EXTRACT ORAL) Take by mouth. ferrous sulfate (IRON) 325 mg (65 mg iron) tablet Take 1 tablet by mouth two times a day. (Patient taking differently: Take 325 mg by mouth two times a day. Taking every 3rd day currently) multivitamin (CLASSIC ) 28 mg iron- 800 mcg tab(s) Take 1 tablet by mouth once daily. No current facility-administered medications for this visit. Injections Technique: Do you take insulin or a medication you inject for your diabetes? No Blood Sugar Monitoring: Do you have a blood sugar monitor? Yes; Management of Low Blood Sugar: What has been your lowest blood sugar in the last month? 70 What are your symptoms of lows?none How do you treat lows? asked/not answered Do you drive? Not addressed Management of High Blood Sugar: What has been you highest blood sugar in the last month? 146 What are your symptoms of highs? Asked/not answered How do you treat your highs? asked/not answered Meal Planning: Are you currently following any meal plan? None Who does the cooking in your house? Self Who does the grocery shopping? Self EDUCATION HANDOUTS: None LEARNING RESPONSE: Diabetes pathophysiology: Demonstrated understanding/competency today or at previous visit Healthy eating: Demonstrated understanding/competency today or at previous visit Being active: Demonstrated understanding/competency today or at previous visit Taking medications: Not applicable for this patient Monitoring glucose: Demonstrated understanding/competency today or at previous visit Acute complications: Demonstrated understanding/competency today or at previous visit Chronic complications: Demonstrated understanding/competency today or at previous visit Healthy coping: Not assessed at the visit Diabetes distress and support: Demonstrated understanding/competency today or at previous visit PATIENT SELECTED THE FOLLOWING GOALS: -Monitoring goal: track my health status 4: I'm ready to start now POSSIBLE FUTURE TOPICS: 1. The following topics were not assessed due to time limitations, but should be assessed at the next visit: all areas were assessed today or within the last 12 months. 2. The following topics should be taught or reinforced at the next visit: . DIABETES EDUCATION PLAN: Education completed and annual diabetes education follow-up visit recommended Time Spent (Minutes): 30 This visit note will be communicated to the healthcare provider via access to shared medical record. SIGNATURE: Sarah Palumbo RN PATIENT NAME: Cheli Osman DATE: November 15, 2023 TIME: 8:52 AM documented in this encounter [facility] 11-13-2023 Note Indication Evaluation of growth, Follow-up evaluation for placental location Di Di twins, Maternal obesity, BMI >30, Gestational diabetes - diet controlled Impression REMOTE READ Live, dichorionic/diamniotic intrauterine . - The biometry is consistent with the assigned gestational dating for both fetuses. - The EFW is 1827 g grams, at the 67%. AC is at the 77% for Fetus A. - The EFW is 1614 g grams, at the 32% percentile. AC is at the 28% percentile for Fetus B. - Normal amniotic fluid volume with an MVP of 3.7 cm for Fetus A and 3.8 cm for Fetus B. - The placenta is anterior, fundal for Fetus A and anterior, fundal for Fetus B. - No malformations visualized on a limited survey as detailed below. Recommendations Additional follow-up as clinically indicated. Maternal Assessment Height 155 cm Height (ft) 5 ft Height (in) 1 in Physical Exam Initial weight (lb) 186 lb Initial BMI 35.14 kg/m Maternal assessment other: 4 Para 1 Method Transabdominal ultrasound examination. View: Suboptimal view: limited by positions Twin . Number of fetuses: 2. Dichorionic-diamniotic Dating GA by prior assessment 30 w + 6 d BRODERICK by prior assessment: 01/13/2024 Ultrasound examination on: 11/10/2023 GA by U/S based upon: AC, BPD, Femur, HC GA by U/S 31 w + 0 d BRODERICK by U/S: 01/12/2024 GA by U/S based upon (Fetus 2): AC, BPD, Femur, HC GA by U/S (Fetus 2) 30 w + 1 d BRODERICK by U/S (Fetus 2): 01/18/2024 Assigned: based on stated BRODERICK, selected on 11/10/2023 Assigned GA 30 w + 6 d Assigned BRODERICK: 01/13/2024 Fetus A: General Evaluation Cardiac activity present. FHR 142 bpm. movements: present. Presentation: cephalic, maternal right Placenta: Placental site: anterior, fundal Umbilical cord: 3 vessel cord Amniotic fluid: Amount of AF: normal amount. MVP 3.7 cm Fetus B: General Evaluation Cardiac activity present. FHR 149 bpm. movements: present. Presentation: transverse head right, superior Placenta: Placental site: anterior, fundal Umbilical cord: 3 vessel cord, marginal insertion Amniotic fluid: Amount of AF: normal amount. MVP 3.8 cm Fetus A: Growth Overview Exam date GA BPD (mm) HC (mm) AC (mm) FL (mm) HL (mm) EFW (g) 08/16/2023 18w 4d 41.2 47% 154.9 42% 137.6 67% 30 86% 29.7 89% 272 73% 09/15/2023 22w 6d 52.6 16% 206.8 46% 192.6 77% 43 93% 631 85% 10/13/2023 26w 6d 64 12% 253.9 59% 236 74% 49.1 55% 1070 60% 11/10/2023 30w 6d 73.5 8% 297.3 74% 278.5 77% 59.2 60% 1827 67% Fetus B: Growth Overview Exam date GA BPD (mm) HC (mm) AC (mm) FL (mm) HL (mm) EFW (g) 08/16/2023 18w 4d 42.5 64% 155.6 44% 135.3 61% 31.8 95% 29.8 90% 280 80% 09/15/2023 22w 6d 53.7 26% 200.1 29% 188 65% 41.4 82% 581 64% 10/13/2023 26w 6d 65.6 26% 245.4 36% 229.7 57% 50.8 76% 1040 51% 11/10/2023 30w 6d 73 6% 276.9 23% 260.9 28% 60.7 80% 1614 32% Fetus A: Biometry Standard BPD 73.5 mm 29w 3d 8% Hadlock OFD 110.4 mm 33w 1d 93% Nicolaides HC 297.3 mm 32w 0d 74% Wilton AC 278.5 mm 31w 6d 77% Hadlock Femur 59.2 mm 30w 6d 60% Wilton EFW 1,827 g 31w 3d 67% Hadlock EFW discordance 11.7 % EFW (lb) 4 lb EFW (oz) 0 oz EFW by: Hadlock (HC-AC-FL) Extended Guillotine Trimmer 6.0 mm Extremities / Bony Struc FL / HC 0.20 Other Structures FHR 142 bpm Fetus B: Biometry Standard BPD 73.0 mm 29w 2d 6% Hadlock OFD 98.6 mm 29w 1d 20% Nicolaides HC 276.9 mm 29w 4d 23% Wilton AC 260.9 mm 30w 2d 28% Hadlock Femur 60.7 mm 31w 3d 80% Wilton EFW 1,614 g 30w 2d 32% Hadlock EFW discordance 11.7 % EFW (lb) 3 lb EFW (oz) 9 oz EFW by: Hadlock (HC-AC-FL) Extremities / Bony Struc FL / HC 0.22 Other Structures FHR 149 bpm Fetus A: Anatomy Lateral ventricles: normal Cavum septi pellucidi: normal Cerebellum: normal Cisterna magna: normal 4-chamber view: normal RVOT view: suboptimal LVOT view: suboptimal 3-vessel view: suboptimal Heart / Thorax Situs: situs solitus (normal) Diaphragm: normal Stomach: normal Kidneys: normal Bladder: normal sex (more content not included)... [facility] 11-10-2023 Instructions Heather Hanson MA - 11/10/2023 11:57 AM EDT SEQUENTIAL SCREENINGS [facility] offers sequential screenings for women who are [...] It will require an appointment with our glass technician/installer. This is not an ultrasound performed by [...] the above symptoms, contact our office at [phone] and ask to speak with a nurse. After hours, you can call doctors registry at [phone] OR call [facility] at [phone] and ask to have the doctor bariatric surgeon paged. If you consider this an emergency, dial 9--1 or go to your nearest emergency department. NEED HELP? Are you dealing with a violent or abusive relationship? Are you a victim of rape or sexual assult? Call [facility] ([place]) 24 hour Crisis Hotline: 967.673.8694 or 559-920-7409. MANUAL Your Guide to a Healthy manual is now on-line. Visit [email or web address] to download your free copy documented in this encounter [facility] 11-10-2023 Note HNO ID: [id number] Author: HEATHER HANSON MA Service: ? Author Type: Loft Worker Head Type: Progress Notes Filed: 11/10/2023 12:12 Note Text: Patient identified by name and date of . Cheli Osman presents today for a vaccination of Tdap. Patient denies an allergy to latex: yes Patient denies a severe (life-threatening) allergy to a previous dose of Tdap, DTP, DTaP, DT or Td vaccine. Yes Patient denies history of epilepsy or neurological problems: Yes Patient is afebrile and denies being moderately or severely ill: Yes Patient denies history of Guillain-Littleton Syndrome (a severe paralytic illness): Yes Tdap Adacel injection was given without incident. See immunizations for details of immunizations administered today. VIS sheet provided: Yes Provider Dr Cam was present in office at time of injection. Heather Hanson MA [facility] 11-10-2023 History of Presen t illness Narrative Patient identified by name and date of . Cheli Osman presents today for a vaccination of Tdap. Patient denies an allergy to latex: yes Patient denies a severe (life-threatening) allergy to a previous dose of Tdap, DTP, DTaP, DT or Td vaccine. Yes Patient denies history of epilepsy or neurological problems: Yes Patient is afebrile and denies being moderately or severely ill: Yes Patient denies history of Guillain-Littleton Syndrome (a severe paralytic illness): Yes Tdap Adacel injection was given without incident. See immunizations for details of immunizations administered today. VIS sheet provided: Yes Provider Dr Cam was present in office at time of injection. Heather Hanson MA documented in this encounter [facility] 11-04-2023 Telephone encounter Note The patient is active with [employer], LOC 100%, $0.00 deductible has $0.00 remaining, $0.00 OOP has $0.00 remaining. An estimate shows the patient's financial responsibility is $0.00 for each treatment in 2023 since there is no O-O-P max to be reached. The patient does not have a cancer diagnosis or a chemo/radiation regimen. No further Financial Navigator intervention is needed at this time. [facility] 11-04-2023 Miscellaneous Notes The patient is active with [employer], LOC 100%, $0.00 deductible has $0.00 remaining, $0.00 OOP has $0.00 remaining. An estimate shows the patient's financial responsibility is $0.00 for each treatment in 2023 since there is no O-O-P max to be reached. The patient does not have a cancer diagnosis or a chemo/radiation regimen. No further Financial Navigator intervention is needed at this time. documented in this encounter [facility] 10-31-2023 Telephone encounter Note Patient returned call and scheduled as directed. Danielle Thomas [facility] 10-31-2023 Miscellaneous Notes Patient returned call and scheduled as directed. Danielle Thomas Lvm for patient to return the call to schedule the below appointments 3 doses of iron sucrose w/in [address] munson ordering. schedule on 2nd floor Monica Verduzco Treatment plan signed and PA approved for IV iron. Ready for scheduling documented in this encounter [facility] 10-31-2023 Telephone encounter Note Lvm for patient to return the call to schedule the below appointments 3 doses of iron sucrose w/in [address] munson ordering. schedule on 2nd floor Monica Verduzco [facility] 10-31-2023 Telephone encounter Note Treatment plan signed and PA approved for IV iron. Ready for scheduling [facility] 10-28-2023 Telephone encounter Note Patient notified. Declines diabetic and nutrition consult appointments as patient had GDM in a previous . Summer Banegas RN [facility] 10-28-2023 Miscellaneous Notes Patient notified. Declines diabetic and nutrition consult appointments as patient had GDM in a previous . Summer Banegas RN filed Orders pending. Please file. We will then contact patient. Summer Banegas RN ----- Message from Lg Munson MD sent at 10/28/2023 8:18 AM EDT ----- Add to record and notify pt of GDM. Please pend supplies thanks documented in this encounter [facility] 10-28-2023 Telephone encounter Note filed [facility] 10-28-2023 Telephone encounter Note Orders pending. Please file. We will then contact patient. Summer Banegas RN [facility] 10-28-2023 Telephone encounter Note ----- Message from Lg Munson MD sent at 10/28/2023 8:18 AM EDT ----- Add to record and notify pt of GDM. Please pend supplies thanks [facility] 10-27-2023 Telephone encounter Note 3rd risk assessment form submitted 10/27/23 Kt Abdalla RN [facility] 10-27-2023 Miscellaneous Notes 3rd risk assessment form submitted 10/27/23 Kt Abdalla RN documented in this encounter [facility] 10-26-2023 Note HNO ID: [id number] Author: LEONORA CHAPMAN RN Service: ? Author Type: Registered Nurse Type: Progress Notes Filed: 10/26/2023 15:48 Note Text: Patient referred to Blood Management for evaluation and treatment of pre-surgical anemia and/or iron deficiency. Non-surgical: anemia in Date of surgery: NA Medical/Surgical History: PAST MEDICAL HISTORY Diagnosis Date Antepartum anemia complicating in first trimester 11/21/2020 Asthma childhood -no attacks since age 9 Diet controlled gestational diabetes mellitus (GDM) in third trimester 03/16/2021 Fibroid 2021 Fibroid(s): Size 48 mm x 34 mm x 51 mm. Mean 44.3 mm. Vol 43.580 cm?. Anterior, Jnac-Urtwn-Ukzrdwe disease Miscarriage 02/2023 depression After late miscarriage-no meds PAST SURGICAL HISTORY Procedure Laterality Date DANDC SUCTION 02/18/2023 16 week loss, 13 week size embryo TONSILLECTOMY AND ADENOIDECTOMY HX Other significant Medical/Surgical history: - None Current Outpatient Medications Medication Sig pyridoxine HCl, vitamin B6, (VITAMIN B-6 ORAL) Take by mouth. diphenhydramine HCl (UNISOM, DIPHENHYDRAMINE, ORAL) Take by mouth. aspirin 81 mg cap Take 1 tablet by mouth once daily. docusate sodium (COLACE) 100 mg capsule Take 1 capsule by mouth two times a day. polyethylene glycol 3350 (MIRALAX) 17 gram packet Take 1 Packet by mouth once daily. Dissolve dose in 4 - 8 ounces of liquid and take as directed. acetaminophen (TYLENOL ORAL) Take by mouth as needed. cranberry fruit extract (CRANBERRY EXTRACT ORAL) Take by mouth. ferrous sulfate (IRON) 325 mg (65 mg iron) tablet Take 1 tablet by mouth two times a day. (Patient taking differently: Take 325 mg by mouth two times a day. Taking every 3rd day currently) multivitamin (CLASSIC ) 28 mg iron- 800 mcg tab(s) Take 1 tablet by mouth once daily. No current facility-administered medications for this visit. Current medications that may affect iron absorption and/or blood loss: - None Baseline laboratory values: WBC (k/uL) Date Value 10/13/2023 8.97 RBC (m/uL) Date Value 10/13/2023 3.39 (L) Hemoglobin (g/dL) Date Value 10/13/2023 10.2 (L) Hematocrit (%) Date Value 10/13/2023 30.1 (L) MCV (fL) Date Value 10/13/2023 88.8 MCH (pg) Date Value 10/13/2023 30.1 MCHC (g/dL) Date Value 10/13/2023 33.9 RDW-CV (%) Date Value 10/13/2023 14.6 Platelet Count (k/uL) Date Value 10/13/2023 145 (L) MPV (fL) Date Value 10/13/2023 9.4 Iron Date Value Ref Range Status 10/22/2023 71 41 - 186 ug/dL Final TIBC Date Value Ref Range Status 10/22/2023 431 (H) 232 - 386 ug/dL Final Ferritin Date Value Ref Range Status 10/22/2023 26.2 14.7 - 205.1 ng/mL Final Transferrin Saturation Date Value Ref Range Status 10/22/2023 16.5 15.0 - 57.0 % Final Assess for the need to augment a patient?s natural red blood cell production: - Blood transfusion avoidance - Iron depletion Recommendations according to Blood Management patient care guidelines: - Iron Sucrose 200 mg, IV infusion, dose(s) 3 total iron deficit using Ganzoni equation = 651 mg (pre- wt 83 kg/goal hgb 11 g/dL) Clinical information is sent to a provider for review and evaluation for treatment. [facility] 10-26-2023 History of Presen t illness Narrative Patient referred to Blood Management for evaluation and treatment of pre-surgical anemia and/or iron deficiency. Non-surgical: anemia in Date of surgery: NA Medical/Surgical History: PAST MEDICAL HISTORY Diagnosis Date Antepartum anemia complicating in first trimester 11/21/2020 Asthma childhood -no attacks since age 9 Diet controlled gestational diabetes mellitus (GDM) in third trimester 03/16/2021 Fibroid 2021 Fibroid(s): Size 48 mm x 34 mm x 51 mm. Mean 44.3 mm. Vol 43.580 cm . Anterior, Kpmt-Zxzkd-Vpyisdl disease Miscarriage 02/2023 depression After late miscarriage-no meds PAST SURGICAL HISTORY Procedure Laterality Date D&C SUCTION 02/18/2023 16 week loss, 13 week size embryo TONSILLECTOMY AND ADENOIDECTOMY HX Other significant Medical/Surgical history: - None Current Outpatient Medications Medication Sig pyridoxine HCl, vitamin B6, (VITAMIN B-6 ORAL) Take by mouth. diphenhydramine HCl (UNISOM, DIPHENHYDRAMINE, ORAL) Take by mouth. aspirin 81 mg cap Take 1 tablet by mouth once daily. docusate sodium (COLACE) 100 mg capsule Take 1 capsule by mouth two times a day. polyethylene glycol 3350 (MIRALAX) 17 gram packet Take 1 Packet by mouth once daily. Dissolve dose in 4 - 8 ounces of liquid and take as directed. acetaminophen (TYLENOL ORAL) Take by mouth as needed. cranberry fruit extract (CRANBERRY EXTRACT ORAL) Take by mouth. ferrous sulfate (IRON) 325 mg (65 mg iron) tablet Take 1 tablet by mouth two times a day. (Patient taking differently: Take 325 mg by mouth two times a day. Taking every 3rd day currently) multivitamin (CLASSIC ) 28 mg iron- 800 mcg tab(s) Take 1 tablet by mouth once daily. No current facility-administered medications for this visit. Current medications that may affect iron absorption and/or blood loss: - None Baseline laboratory values: WBC (k/uL) Date Value 10/13/2023 8.97 RBC (m/uL) Date Value 10/13/2023 3.39 (L) Hemoglobin (g/dL) Date Value 10/13/2023 10.2 (L) Hematocrit (%) Date Value 10/13/2023 30.1 (L) MCV (fL) Date Value 10/13/2023 88.8 MCH (pg) Date Value 10/13/2023 30.1 MCHC (g/dL) Date Value 10/13/2023 33.9 RDW-CV (%) Date Value 10/13/2023 14.6 Platelet Count (k/uL) Date Value 10/13/2023 145 (L) MPV (fL) Date Value 10/13/2023 9.4 Iron Date Value Ref Range Status 10/22/2023 71 41 - 186 ug/dL Final TIBC Date Value Ref Range Status 10/22/2023 431 (H) 232 - 386 ug/dL Final Ferritin Date Value Ref Range Status 10/22/2023 26.2 14.7 - 205.1 ng/mL Final Transferrin Saturation Date Value Ref Range Status 10/22/2023 16.5 15.0 - 57.0 % Final Assess for the need to augment a patient s natural red blood cell production: - Blood transfusion avoidance - Iron depletion Recommendations according to Blood Management patient care guidelines: - Iron Sucrose 200 mg, IV infusion, dose(s) 3 total iron deficit using Ganzoni equation = 651 mg (pre- wt 83 kg/goal hgb 11 g/dL) Clinical information is sent to a provider for review and evaluation for treatment. documented in this encounter [facility] 10-26-2023 Progress note Formatting of t his note might be different from the original. DM-Pt doing well. Denies vaginal Bleeding, Leaking fluid, or regular Contractions. Pt reports good movement Physical Exam: Gen: female in no apparent distress Abd: soft, Gravid. Non tender to palpation. See flow sheet Assessment & Plan Supervision of high risk in third trimester Abnormal glucose complicating Anemia during in second trimester Continue po iron Obesity affecting in first trimester, unspecified obesity type Low lying placenta without hemorrhage, antepartum Continue pelvic rest Dichorionic diamniotic twin in second trimester 28 weeks gestation of Growth us scheduled Continue ASA 3hr GTT today- in process TDAP next visit Would like RSV vaccine during this Flu vaccine considering Linh Siddiqui MD [facility] 10-26-2023 Miscellaneous Notes DM-Pt doing well. Denies vaginal Bleeding, Leaking fluid, or regular Contractions. Pt reports good movement Physical Exam: Gen: female in no apparent distress Abd: soft, Gravid. Non tender to palpation. See flow sheet Assessment & Plan Supervision of high risk in third trimester Abnormal glucose complicating Anemia during in second trimester Continue po iron Obesity affecting in first trimester, unspecified obesity type Low lying placenta without hemorrhage, antepartum Continue pelvic rest Dichorionic diamniotic twin in second trimester 28 weeks gestation of Growth us scheduled Continue ASA 3hr GTT today- in process TDAP next visit Would like RSV vaccine during this Flu vaccine considering Linh Siddiqui MD documented in this encounter [facility] 10-26-2023 Instructions Yue Johnson MA - 10/26/2023 8:13 AM EDT SEQUENTIAL SCREENINGS The [facility] offers sequential screenings for women who are [...] It will require an appointment with our glass technician/installer. This is not an ultrasound performed by [...] the above symptoms, contact our office at [phone] and ask to speak with a nurse. After hours, you can call doctors registry at [phone] OR call [facility] at [phone] and ask to have the doctor bariatric surgeon paged. If you consider this an emergency, dial 1-1-0 or go to your nearest emergency department. NEED HELP? Are you dealing with a violent or abusive relationship? Are you a victim of rape or sexual assult? Call [facility] ([place]) 24 hour Crisis Hotline: 596.118.8672 or 219-655-5797. MANUAL Your Guide to a Healthy manual is now on-line. Visit [email or web address] to download your free copy documented in this encounter [facility] 10-14-2023 Note Addended by: LAISHA MARSH on: 10/14/2023 05:26 PM Modules accepted: Orders [facility] 10-14-2023 Miscellaneous Notes Addended by: LAISHA MARSH on: 10/14/2023 05:26 PM Modules accepted: Orders Patient notified. States she has been taking the ferrous sulfate 325mg every other day. She had to decrease it from daily d/t constipation issues. Should she get iron studies now? Can you please advise since SW left for the day. Aware we will call her back on Tuesday. Laisha Marsh RN Left message for patient to call office. Laisha Marsh RN See result note about anemia and abnormal 1 hr GTT. 3 hr GTT ordered. Now seeing that pt already has iron supplement previously ordered. Please see if patient is taking oral iron. May need iron studies and blood management referral if already taking given anemia documented in this encounter [facility] 10-14-2023 Telephone encounter Note Patient notified. States she has been taking the ferrous sulfate 325mg every other day. She had to decrease it from daily d/t constipation issues. Should she get iron studies now? Can you please advise since SW left for the day. Aware we will call her back on Tuesday. Laisha Marsh RN [facility] 10-14-2023 Telephone encounter Note Left message for patient to call office. Laisha Marsh RN [facility] 10-14-2023 Telephone encounter Note See result note about anemia and abnormal 1 hr GTT. 3 hr GTT ordered. Now seeing that pt already has iron supplement previously ordered. Please see if patient is taking oral iron. May need iron studies and blood management referral if already taking given anemia [facility] 10-13-2023 Note Indication Evaluation of growth Di-Di twins Impression REMOTE READ Live, dichorionic/diamniotic intrauterine . - The biometry is consistent with the assigned gestational dating for both fetuses. - The EFW is 1070 g grams, at the 60%. AC is at the 74% for Fetus A. - The EFW is 1040 g grams, at the 51% percentile. AC is at the 57% percentile for Fetus B. - Normal amniotic fluid volume with an MVP of 7.1 cm for Fetus A and 5.2 cm for Fetus B. - The placenta is anterior, low lying for Fetus A and anterior, fundal for Fetus B. - No malformations visualized on a limited survey as detailed below. Recommendations Growth in four weeks Maternal Assessment Height 155 cm Height (ft) 5 ft Height (in) 1 in Physical Exam Initial weight (lb) 186 lb Initial BMI 35.14 kg/m Maternal assessment other: 4 Para 1 Method Transabdominal ultrasound examination. View: Suboptimal view: limited by position Twin . Number of fetuses: 2. Dichorionic-diamniotic Dating GA by prior assessment 26 w + 6 d BRODERICK by prior assessment: 01/13/2024 Ultrasound examination on: 10/13/2023 GA by U/S based upon: AC, BPD, Femur, HC GA by U/S 26 w + 6 d BRODERICK by U/S: 01/13/2024 GA by U/S based upon (Fetus 2): AC, BPD, Femur, HC GA by U/S (Fetus 2) 26 w + 6 d BRODERICK by U/S (Fetus 2): 01/13/2024 Assigned: based on stated BRODERICK, selected on 10/13/2023 Assigned GA 26 w + 6 d Assigned BRODERICK: 01/13/2024 Fetus A: General Evaluation Cardiac activity present. FHR 135 bpm. movements: present. Presentation: breech, maternal left inferior Placenta: Placental site: anterior, low lying Umbilical cord: 3 vessel cord Amniotic fluid: Amount of AF: normal amount. MVP 7.1 cm Fetus B: General Evaluation Cardiac activity present. FHR 156 bpm. movements: present. Presentation: transverse head right, superior Placenta: Placental site: anterior, fundal Umbilical cord: marginal insertion, 3 vessel cord Amniotic fluid: Amount of AF: normal amount. MVP 5.2 cm Fetus A: Growth Overview Exam date GA BPD (mm) HC (mm) AC (mm) FL (mm) HL (mm) EFW (g) 08/16/2023 18w 4d 41.2 47% 154.9 42% 137.6 67% 30 86% 29.7 89% 272 73% 09/15/2023 22w 6d 52.6 16% 206.8 46% 192.6 77% 43 93% 631 85% 10/13/2023 26w 6d 64 12% 253.9 59% 236 74% 49.1 55% 1070 60% Fetus B: Growth Overview Exam date GA BPD (mm) HC (mm) AC (mm) FL (mm) HL (mm) EFW (g) 08/16/2023 18w 4d 42.5 64% 155.6 44% 135.3 61% 31.8 95% 29.8 90% 280 80% 09/15/2023 22w 6d 53.7 26% 200.1 29% 188 65% 41.4 82% 581 64% 10/13/2023 26w 6d 65.6 26% 245.4 36% 229.7 57% 50.8 76% 1040 51% Fetus A: Biometry Standard BPD 64.0 mm 25w 6d 12% Hadlock OFD 93.2 mm 27w 4d 84% Nicolaides HC 253.9 mm 27w 1d 59% Wilton AC 236.0 mm 27w 6d 74% Hadlock Femur 49.1 mm 26w 5d 55% Wilton EFW 1,070 g 27w 1d 60% Hadlock EFW discordance 2.8 % EFW (lb) 2 lb EFW (oz) 6 oz EFW by: Hadlock (HC-AC-FL) Extended Guillotine Trimmer 5.1 mm Extremities / Bony Struc FL / HC 0.19 Other Structures FHR 135 bpm Fetus B: Biometry Standard BPD 65.6 mm 26w 3d 26% Hadlock OFD 87.0 mm 26w 0d 34% Nicolaides HC 245.4 mm 26w 2d 36% Wilton AC 229.7 mm 27w 2d 57% Hadlock Femur 50.8 mm 27w 2d 76% Wilton EFW 1,040 g 26w 6d 51% Hadlock EFW discordance 2.8 % EFW (lb) 2 lb EFW (oz) 5 oz EFW by: Hadlock (HC-AC-FL) Extremities / Bony Struc FL / HC 0.21 Other Structures FHR 156 bpm Fetus A: Anatomy Lateral ventricles: normal Cavum septi pellucidi: normal Cerebellum: normal Cisterna magna: normal 4-chamber view: suboptimal RVOT view: suboptimal LVOT view: suboptimal 3-vessel view: suboptimal Heart / Thorax Situs: situs solitus (normal) Diaphragm: normal Stomach: normal Kidneys: normal Bladder: normal sex: female Wants to know sex: yes Fetus B: Anatomy Lateral ventricles: suboptimal Cavum septi pellucidi: suboptimal Cerebellum: suboptimal Cisterna magna: suboptimal 4-chamber view: normal RVOT view: normal LVOT view: normal 3-vessel view: normal Heart / Thorax Situs: situs solitus (normal) Diaphragm: normal Stomach: normal Kidneys: normal Bladder: normal sex: female Wants to (more content not included)... [facility] 10-13-2023 Progress note Formatting of t his note might be different from the original. S: Cheli Osman is a 28 year old female who presents at 26 weeks gestation for a routine visit with OB US. Continues to have low lying placenta. Just completed GCT. Denies headache, visual changes, chest pain, shortness of breath, vaginal bleeding, leakage of fluid, or dysuria. Feeling well but fatigued and having difficulty working. O: See flow sheet Gen: No apparent distress Abd: Gravid, nontender ASSESSMENT/PLAN: 1. Encounter for supervision of high risk in second trimester, antepartum - ICD9: V23.9, ICD10: O09.92 (primary diagnosis) 2. 26 weeks gestation of - ICD9: V22.2, ICD10: Z3A.26 3. Dichorionic diamniotic twin in second trimester - ICD9: 651.03, V91.03, ICD10: O30.042 4. Obesity affecting in first trimester, unspecified obesity type - ICD9: 649.13, ICD10: O99.211 5. Low lying placenta without hemorrhage, antepartum - ICD9: 641.03, ICD10: O44.40 - TDAP next visit - Pregravid BMI 35 - Bi weekly testing starting at 28 weeks / Di/Di twins, obesity - PTL precautions reviewed and when to call provider - RTO 2 weeks Melony Pineda APRN.CNM [facility] 10-13-2023 Miscellaneous Notes S: Cheli Osman is a 28 year old female who presents at 26 weeks gestation for a routine visit with OB US. Continues to have low lying placenta. Just completed GCT. Denies headache, visual changes, chest pain, shortness of breath, vaginal bleeding, leakage of fluid, or dysuria. Feeling well but fatigued and having difficulty working. O: See flow sheet Gen: No apparent distress Abd: Gravid, nontender ASSESSMENT/PLAN: 1. Encounter for supervision of high risk in second trimester, antepartum - ICD9: V23.9, ICD10: O09.92 (primary diagnosis) 2. 26 weeks gestation of - ICD9: V22.2, ICD10: Z3A.26 3. Dichorionic diamniotic twin in second trimester - ICD9: 651.03, V91.03, ICD10: O30.042 4. Obesity affecting in first trimester, unspecified obesity type - ICD9: 649.13, ICD10: O99.211 5. Low lying placenta without hemorrhage, antepartum - ICD9: 641.03, ICD10: O44.40 - TDAP next visit - Pregravid BMI 35 - Bi weekly testing starting at 28 weeks / Di/Di twins, obesity - PTL precautions reviewed and when to call provider - RTO 2 weeks Melony Pineda APRN.CNM documented in this encounter [facility] 10-13-2023 Instructions Yue Johnson MA - 10/13/2023 2:29 PM EDT SEQUENTIAL SCREENINGS The [facility] offers sequential screenings for women who are [...] It will require an appointment with our glass technician/installer. This is not an ultrasound performed by [...] the above symptoms, contact our office at [phone] and ask to speak with a nurse. After hours, you can call doctors registry at [phone] OR call [facility] at [phone] and ask to have the doctor bariatric surgeon paged. If you consider this an emergency, dial 9-1-3 or go to your nearest emergency department. NEED HELP? Are you dealing with a violent or abusive relationship? Are you a victim of rape or sexual assult? Call [facility] [place] [facility] 24 hour Crisis Hotline: 450.685.8505 or 344-312-5909. MANUAL Your Guide to a Healthy manual is now on-line. Visit [email or web address] to download your free copy documented in this encounter [facility] 09-15-2023 Progress note Formatting of t his note might be different from the original. Anatomy ultrasound reviewed. No abnormalities identified. Follow up as clinically indicated. Please place copy in ob chart. Cheli Dillard MD [facility] 09-15-2023 Miscellaneous Notes Anatomy ultrasound reviewed. No abnormalities identified. Follow up as clinically indicated. Please place copy in ob chart. Cheli Dillard MD documented in this encounter [facility] 09-15-2023 Note Indication Evaluation of growth Di Di twins Maternal obesity, BMI >30 Impression REMOTE READ Live, dichorionic/diamniotic intrauterine . - The biometry is consistent with the assigned gestational dating for both fetuses. - The EFW is 631 g grams, at the 85%. AC is at the 77% for Fetus A. - The EFW is 581 g grams, at the 64% percentile. AC is at the 65% percentile for Fetus B. - Normal amniotic fluid volume with an MVP of 5.4 cm for Fetus A and 5.7 cm for Fetus B. - The placenta is anterior, low lying for Fetus A and anterior, fundal for Fetus B. - No malformations visualized on a limited survey as detailed below. Recommendations Growth in four weeks Maternal Assessment Height 155 cm Height (ft) 5 ft Height (in) 1 in Physical Exam Initial weight (lb) 186 lb Initial BMI 35.14 kg/m Maternal assessment other: 4 Para 1 Method Transabdominal ultrasound examination Twin . Number of fetuses: 2. Dichorionic-diamniotic Dating GA by prior assessment 22 w + 6 d BRODERICK by prior assessment: 01/13/2024 Ultrasound examination on: 09/15/2023 GA by U/S based upon: AC, BPD, Femur, HC GA by U/S 23 w + 2 d BRODERICK by U/S: 01/10/2024 GA by U/S based upon (Fetus 2): AC, BPD, Femur, HC GA by U/S (Fetus 2) 23 w + 0 d BRODERICK by U/S (Fetus 2): 01/12/2024 Assigned: based on ultrasound (CRL), selected on 06/06/2023 Assigned GA 22 w + 6 d Assigned BRODERICK: 01/13/2024 Fetus A: General Evaluation Cardiac activity present. FHR 143 bpm. movements: present. Presentation: cephalic, maternal right, inferior Placenta: Placental site: anterior, low lying Umbilical cord: 3 vessel cord Amniotic fluid: Amount of AF: normal amount. MVP 5.4 cm Fetus B: General Evaluation Cardiac activity present. FHR 145 bpm. movements: present. Presentation: transverse head right, left, superior Placenta: Placental site: anterior, fundal Umbilical cord: 3 vessel cord, marginal insertion Amniotic fluid: Amount of AF: normal amount. MVP 5.7 cm Fetus A: Growth Overview Exam date GA BPD (mm) HC (mm) AC (mm) FL (mm) HL (mm) EFW (g) 08/16/2023 18w 4d 41.2 47% 154.9 42% 137.6 67% 30 86% 29.7 89% 272 73% 09/15/2023 22w 6d 52.6 16% 206.8 46% 192.6 77% 43 93% 631 85% Fetus B: Growth Overview Exam date GA BPD (mm) HC (mm) AC (mm) FL (mm) HL (mm) EFW (g) 08/16/2023 18w 4d 42.5 64% 155.6 44% 135.3 61% 31.8 95% 29.8 90% 280 80% 09/15/2023 22w 6d 53.7 26% 200.1 29% 188 65% 41.4 82% 581 64% Fetus A: Biometry Standard BPD 52.6 mm 22w 0d 16% Hadlock OFD 75.9 mm 23w 2d 83% Nicolaides HC 206.8 mm 22w 5d 46% Wilton AC 192.6 mm 24w 0d 77% Hadlock Femur 43.0 mm 24w 2d 93% Wilton EFW 631 g 23w 4d 85% Hadlock EFW discordance 8.0 % EFW (lb) 1 lb EFW (oz) 6 oz EFW by: Hadlock (HC-AC-FL) Extended Guillotine Trimmer 6.5 mm Extremities / Bony Struc FL / HC 0.21 Other Structures FHR 143 bpm Fetus B: Biometry Standard BPD 53.7 mm 22w 2d 26% Hadlock OFD 71.1 mm 22w 0d 36% Nicolaides HC 200.1 mm 22w 1d 29% Wilton AC 188.0 mm 23w 4d 65% Hadlock Femur 41.4 mm 23w 5d 82% Wilton EFW 581 g 23w 1d 64% Hadlock EFW discordance 8.0 % EFW (lb) 1 lb EFW (oz) 4 oz EFW by: Hadlock (HC-AC-FL) Extended Guillotine Trimmer 7.2 mm Extremities / Bony Struc FL / HC 0.21 Other Structures FHR 145 bpm Fetus A: Anatomy Lateral ventricles: normal Cavum septi pellucidi: normal Cerebellum: normal Cisterna magna: normal 4-chamber view: normal RVOT view: normal LVOT view: normal 3-vessel view: normal Heart / Thorax Situs: situs solitus (normal) Diaphragm: normal Stomach: normal Kidneys: normal Bladder: normal sex: female Wants to know sex: yes Fetus B: Anatomy Lateral ventricles: normal Cavum septi pellucidi: normal Cerebellum: normal Cisterna magna: normal 4-chamber view: normal RVOT view: normal LVOT view: normal 3-vessel view: normal Heart / Thorax Situs: situs solitus (normal) Diaphragm: normal Stomach: normal Kidneys: normal Bladder: normal sex: female Wants to know sex: yes Performed By: Marybeth Pearson RDMS, RVT Read By: Luda Allen M.D. [facility] 09-15-2023 Progress note Formatting of t his note might be different from the original. SW- pt doing well and offers no complaints. No pain, vb, lof. +Fmx2. PE: Gen- NAD, well appearing Abd- ND See flowsheet A/p 22 wk gestation - Low lying placenta: Questions answered and discussed reassess around 32 weeks. Another letter given for work with lifting restrictions per patient request - Twin gestation: Ultrasound today and final report pending. Cont baby ASA. Repeat growth in 4 weeks - RTO 4 wks Lg Munson DO [facility] Work Phone: 09-15-2023 Miscellaneous Notes SW- pt doing well and offers no complaints. No pain, vb, lof. +Fmx2. PE: Gen- NAD, well appearing Abd- ND See flowsheet A/p 22 wk gestation - Low lying placenta: Questions answered and discussed reassess around 32 weeks. Another letter given for work with lifting restrictions per patient request - Twin gestation: Ultrasound today and final report pending. Cont baby ASA. Repeat growth in 4 weeks - RTO 4 wks Lg Munson DO documented in this encounter [facility] 09-15-2023 Instructions Taryn Crabtree MA - 09/15/2023 11:16 AM EDT SEQUENTIAL SCREENINGS The [facility] offers sequential screenings for women who are [...] It will require an appointment with our glass technician/installer. This is not an ultrasound performed by [...] the above symptoms, contact our office at [phone] and ask to speak with a nurse. After hours, you can call doctors registry at [phone] OR call [facility] at [phone] and ask to have the doctor bariatric surgeon paged. If you consider this an emergency, dial 9--1 or go to your nearest emergency department. NEED HELP? Are you dealing with a violent or abusive relationship? Are you a victim of rape or sexual assult? Call [facility] ([place]) 24 hour Crisis Hotline: 628.545.7809 or 061-060-6039. MANUAL Your Guide to a Healthy manual is now on-line. Visit [email or web address] to download your free copy documented in this encounter [facility] 08-26-2023 Telephone encounter Note 2nd risk assessment form submitted 08/26/23 Kt Abdalla RN [facility] 08-26-2023 Miscellaneous Notes 2nd risk assessment form submitted 08/26/23 Kt Abdalla RN documented in this encounter [facility] 08-26-2023 Telephone encounter Note 2nd risk assessment form submitted 08/26/23 Kt Abdalla RN [facility] 08-26-2023 Miscellaneous Notes 2nd risk assessment form submitted 08/26/23 Kt Abdalla RN documented in this encounter [facility] 08-16-2023 Note Indication Detailed anatomic survey. Evaluation of dichorionic/diamniotic twins. Obesity, BMI >30 Impression REMOTE READ The patient is referred for a detailed anatomic survey. - Live, dichorionic/diamniotic twin intrauterine . - biometry is consistent with the established gestational age for both fetuses. - No malformations were visualized in either fetus on a complete anatomic assessment. - Normal amniotic fluid volume for both fetuses. - The placenta is anterior, low lying around 4mm from internal os for Fetus A and anterior, fundal for Fetus B. - The Transvaginal cervical length measures 42 mm with no evidence of funneling or other dynamic changes. - Not all structural malformations can be detected by ultrasound examination. Recommendations Growth every 4 weeks starting at 24 weeks Growth and and placental location around 32 weeks Maternal Assessment Height 155 cm Height (ft) 5 ft Height (in) 1 in Physical Exam Initial weight (lb) 186 lb Initial BMI 35.14 kg/m Method Transabdominal and transvaginal ultrasound examination. View: Adequate visualization Twin . Number of fetuses: 2. Dichorionic-diamniotic Dating GA by prior assessment 18 w + 4 d BRODERICK by prior assessment: 01/13/2024 Ultrasound examination on: 08/16/2023 GA by U/S based upon: AC, BPD, Femur, HC GA by U/S 18 w + 6 d BRODERICK by U/S: 01/11/2024 GA by U/S based upon (Fetus 2): AC, BPD, Femur, HC GA by U/S (Fetus 2) 19 w + 1 d BRODERICK by U/S (Fetus 2): 01/09/2024 Assigned: based on ultrasound (CRL), selected on 06/06/2023 Assigned GA 18 w + 4 d Assigned BRODERICK: 01/13/2024 Fetus A: General Evaluation Cardiac activity present. FHR 149 bpm. movements: present. Presentation: cephalic, inferior Placenta: Placental site: anterior, low lying. Placental ywki-di-ocdisxsg os distance 4 mm Umbilical cord: Cord vessels: 3 vessel cord. Insertion site: normal insertion Amniotic fluid: Amount of AF: normal amount. MVP 4.2 cm Fetus B: General Evaluation Cardiac activity present. FHR 149 bpm. movements: present. Presentation: transverse head left, superior Placenta: Placental site: anterior, fundal Umbilical cord: Cord vessels: 3 vessel cord. Insertion site: marginal insertion Amniotic fluid: Amount of AF: normal amount. MVP 5.2 cm Fetus A: Growth Overview Exam date GA BPD (mm) HC (mm) AC (mm) FL (mm) HL (mm) EFW (g) 08/16/2023 18w 4d 41.2 47% 154.9 42% 137.6 67% 30 86% 29.7 89% 272 73% Fetus B: Growth Overview Exam date GA BPD (mm) HC (mm) AC (mm) FL (mm) HL (mm) EFW (g) 08/16/2023 18w 4d 42.5 64% 155.6 44% 135.3 61% 31.8 95% 29.8 90% 280 80% Fetus A: Biometry Standard BPD 41.2 mm 18w 3d 47% Hadlock OFD 55.5 mm 18w 3d 66% Nicolaides HC 154.9 mm 18w 2d 42% Wilton Cerebellum tr 18.9 mm 18w 3d 40% Hill Nuchal fold 3.2 mm AC 137.6 mm 19w 1d 67% Hadlock Femur 30.0 mm 19w 3d 86% Wilton Humerus 29.7 mm 19w 5d 89% Wilton EFW 272 g 19w 0d 73% Hadlock EFW discordance 3.0 % EFW (lb) 0 lb EFW (oz) 10 oz EFW by: Hadlock (HC-AC-FL) Extended Guillotine Trimmer 5.2 mm CM 3.4 mm 13% Nicolaides Nasal bone 6.4 mm Extremities / Bony Struc FL / HC 0.19 89% Hadlock Other Structures FHR 149 bpm Fetus B: Biometry Standard BPD 42.5 mm 18w 6d 64% Hadlock OFD 54.7 mm 18w 1d 55% Nicolaides HC 155.6 mm 18w 3d 44% Wilton Cerebellum tr 18.4 mm 18w 1d 23% Hill Nuchal fold 3.1 mm AC 135.3 mm 19w 0d 61% Hadlock Femur 31.8 mm 20w 0d 95% Wilton Humerus 29.8 mm 19w 5d 90% Wilton EFW 280 g 19w 1d 80% Hadlock EFW discordance 3.0 % EFW (lb) 0 lb EFW (oz) 10 oz EFW by: Hadlock (HC-AC-FL) Extended Guillotine Trimmer 5.8 mm CM 3.1 mm 7% Nicolaides Nasal bone 5.8 mm Extremities / Bony Struc FL / HC 0.20 99% Hadlock Other Structures FHR 149 bpm Fetus A: Anatomy Cranium: normal Lateral ventricles: normal Choroid plexus: normal Midline falx: normal Cavum septi pellucidi: normal Cerebellum: normal Cisterna magna: normal Head / Neck Nuchal fold: normal Lips: normal Profile: normal Nose: normal Face Orbits: normal Lens: normal 4-chamber view: normal RVOT view: normal LVOT view: normal 3-vessel view: normal 5-nnnaiz-hrjzwli view: normal Heart / Thorax Situs: situs solitus (normal) Aortic arch view: normal Bicaval view: normal SVC: normal IVC: normal Cardiac axis: normal Diaphragm: normal Cord insertion: normal Stomach: normal Kidneys: normal Bladder: normal Genitals: normal Abdomen Abdom. wall: normal Cervical spine: normal Thoracic spine: normal Lumbar spin (more content not included)... MATERNAL MEDICINE 08-16-2023 Progress note Formatting of t his note might be different from the original. KJ - VB No. LOF No. CTXS No. Movement: some present. Other c/o: hip and low back pain. Also constipation is limiting her iron use. Medication list reviewed. Physical Exam See Flow Sheet Gen: no accute distress, well appearing A/P 18w4d Estimated Date of Delivery: 01/13/24 Anatomy US today for di/di twins - prelim read shows baby A with placenta previa. Patient advised on pelvic rest. US Q4 weeks ordered. Constipation - advised on diet and meds to help Anemia - resume iron when able Medical Decision Making: Problems: Moderate: New problem with uncertain prognosis Risk: Moderate: Drug management Medical Decision Making Level: 4 - Moderate Harrison Cam MD [facility] 08-16-2023 Miscellaneous Notes KJ - VB No. LOF No. CTXS No. Movement: some present. Other c/o: hip and low back pain. Also constipation is limiting her iron use. Medication list reviewed. Physical Exam See Flow Sheet Gen: no accute distress, well appearing A/P 18w4d Estimated Date of Delivery: 01/13/24 Anatomy US today for di/di twins - prelim read shows baby A with placenta previa. Patient advised on pelvic rest. US Q4 weeks ordered. Constipation - advised on diet and meds to help Anemia - resume iron when able Medical Decision Making: Problems: Moderate: New problem with uncertain prognosis Risk: Moderate: Drug management Medical Decision Making Level: 4 - Moderate Harrison Cam MD documented in this encounter [facility] 08-16-2023 Instructions Taryn Crabtree MA - 08/16/2023 1:55 PM EDT SEQUENTIAL SCREENINGS The [facility] offers sequential screenings for women who are [...] It will require an appointment with our glass technician/installer. This is not an ultrasound performed by [...] the above symptoms, contact our office at [phone] and ask to speak with a nurse. After hours, you can call doctors registry at [phone] OR call [facility] at [phone] and ask to have the doctor bariatric surgeon paged. If you consider this an emergency, dial 9-1-9 or go to your nearest emergency department. NEED HELP? Are you dealing with a violent or abusive relationship? Are you a victim of rape or sexual assult? Call [facility] ([place]) 24 hour Crisis Hotline: 125.461.4059 or 196-350-3059. MANUAL Your Guide to a Healthy manual is now on-line. Visit [email or web address] ancyGuide to download your free copy documented in this encounter [facility] 07-29-2023 Progress note Formatting of t his note might be different from the original. KJ - VB No. LOF No. CTXS No. Movement: absent. Other c/o: No. Medication list reviewed. Physical Exam See Flow Sheet Gen: no accute distress, well appearing Abd: soft, nontender TAUS: active fetus with fca x2 A/P 16w0d Estimated Date of Delivery: 01/13/24 Anatomy US scheduled Di/di twins Harrison Cam MD [facility] 07-29-2023 Miscellaneous Notes KJ - VB No. LOF No. CTXS No. Movement: absent. Other c/o: No. Medication list reviewed. Physical Exam See Flow Sheet Gen: no accute distress, well appearing Abd: soft, nontender TAUS: active fetus with fca x2 A/P 16w0d Estimated Date of Delivery: 01/13/24 Anatomy US scheduled Di/di twins Harrison Cam MD documented in this encounter [facility] 07-29-2023 Veronica Hutchins LPN - 07/29/2023 8:43 AM EDT SEQUENTIAL SCREENINGS The [facility] offers sequential screenings for women who are [...] It will require an appointment with our glass technician/installer. This is not an ultrasound performed by [...] the above symptoms, contact our office at [phone] and ask to speak with a nurse. After hours, you can call doctors registry at [phone] OR call [facility] at [phone] and ask to have the doctor bariatric surgeon paged. If you consider this an emergency, dial 9-1-1 or go to your nearest emergency department. NEED HELP? Are you dealing with a violent or abusive relationship? Are you a victim of rape or sexual assult? Call [facility] ([place]) 24 hour Crisis Hotline: 726.882.1152 or 312-020-1264. MANUAL Your Guide to a Healthy manual is now on-line. Visit [email or web address] ancyGuide to download your free copy documented in this encounter [facility] 07-05-2023 Progress note Formatting of t his note might be different from the original. KJ - VB No. LOF No. CTXS No. Movement: absent. Other c/o: No. Medication list reviewed. Physical Exam See Flow Sheet Gen: no accute distress, well appearing Abd: soft, nontender, gravid TAUS: shows active fetus x2 with fca x2. Dividing membrane appears thick. A/P 12w4d Estimated Date of Delivery: 01/13/24 Declines carrier screening or blood aneuploidy screening NT twin ultrasound ordered - further US and visits pending results Harrison Cam MD [facility] 07-05-2023 Miscellaneous Notes KJ - VB No. LOF No. CTXS No. Movement: absent. Other c/o: No. Medication list reviewed. Physical Exam See Flow Sheet Gen: no accute distress, well appearing Abd: soft, nontender, gravid TAUS: shows active fetus x2 with fca x2. Dividing membrane appears thick. A/P 12w4d Estimated Date of Delivery: 01/13/24 Declines carrier screening or blood aneuploidy screening NT twin ultrasound ordered - further US and visits pending results Harrison Cam MD documented in this encounter [facility] 07-05-2023 Instructions Taryn Crabtree MA - 07/05/2023 2:04 PM EDT SEQUENTIAL SCREENINGS The [facility] offers sequential screenings for women who are [...] It will require an appointment with our glass technician/installer. This is not an ultrasound performed by [...] the above symptoms, contact our office at [phone] and ask to speak with a nurse. After hours, you can call doctors registry at [phone] OR call [facility] at [phone] and ask to have the doctor bariatric surgeon paged. If you consider this an emergency, dial 0-5-1 or go to your nearest emergency department. NEED HELP? Are you dealing with a violent or abusive relationship? Are you a victim of rape or sexual assult? Call [facility] ([facility] 24 hour Crisis Hotline: 606.349.2687 or 686-638-6573. MANUAL Your Guide to a Healthy manual is now on-line. Visit [email or web address] [email or web address] to download your free copy documented in this encounter [facility] 06-28-2023 Hospital Discharg e instructions Patient Education 06/27/2023 22:43:16 Vomiting and Diarrhea, Nonspecific (Adult) Nonspecific Vomiting and Diarrhea (Adult) Vomiting and diarrhea can have many causes, including: Helping your body get rid of harmful substances Gastroenteritis caused by viruses, parasites, bacteria, or toxins. Allergy to or side effect of a food or medicine Severe stress or worry (anxiety) Other illnesses It is often hard to pinpoint an exact cause, even with testing. Vomiting and diarrhea often go away within a day or two without problems. If they continue, though, they can lead to too much loss of fluid (dehydration). This can be serious if not treated. Home care Medicines You may use acetaminophen or NSAID medicines like ibuprofen or naproxen to control fever, unless another medicine was prescribed. If you have chronic liver or kidney disease, talk with your healthcare provider before using these medicines. Also talk with your provider if you've had a stomach ulcer or gastrointestinal bleeding. Don't give aspirin to anyone under 18 years of age who is ill with a fever because it may cause severe disease or . Don't use NSAID medicines if you are already taking one for another condition (like arthritis) or are on aspirin (such as for heart disease or after a stroke) Dots-vpw-jnvhaoq medicines for diarrhea, nausea, and vomiting are generally OK unless you have bleeding, fever, or severe abdominal pain. General care If symptoms are severe, rest at home for the next 24 hours, or until you are feeling better. Washing your hands with soap and water, or using alcohol-based hand sole painter is the best way to stop the spread of infection. Wash your hands after touching anyone who is sick. Wash your hands after using the toilet and before meals. Clean the toilet after each use. Dry your hands with a single use towel. Caffeine, tobacco, and alcohol can make the diarrhea, cramping, and pain worse. Remember, caffeine not only is in coffee, but also is in chocolate, some energy drinks, and teas. Diet Water and clear liquids are important so you don't get dehydrated. Drink a small amount at a time. Don't guzzle down the drinks. That may increase your nausea, make cramping worse, and cause the drinks to come back up. Sports drinks may also help if you are healthy and not too dehydrated. They have too much sugar and not enough electrolytes and can sometimes make things worse. Also, don't drink beverages that are too acidic, like orange juice and grape juice. If you are very dehydrated, commercially available products called oral rehydration solutions are best. Food Don't force yourself to eat, especially if you have cramps, diarrhea, or vomiting. Eat just a little at a time, and then wait a few minutes before you try to eat more. Don't eat fatty, greasy, spicy, or fried foods. Don't eat dairy products if you have diarrhea. They can make it worse. During the first 24 hours (the first full day), follow the diet below: Beverages: Oral rehydration solutions, sports drinks, soft drinks without caffeine, mineral water, and decaffeinated tea and coffee Soups: Clear broth, consomm , and bouillon Desserts: Plain gelatin, popsicles, and fruit juice bars During the next 24 hours (the second day), you may add the following to the above if you are better. If not, continue what you did the first day: Hot cereal, plain toast, bread, rolls, crackers Plain noodles, rice, mashed potatoes, chicken noodle or rice soup Unsweetened canned fruit (avoid pineapple), bananas Limit fat intake to less than 15 grams per day by avoiding margarine, butter, oils, mayonnaise, sauces, gravies, fried foods, peanut butter, meat, poultry, and fish. Limit fiber. Avoid raw or cooked vegetables, fresh fruits (except bananas) and bran cereals. Limit caffeine and chocolate. No spices or seasonings except salt. During the next 24 hours: Gradually resume a normal diet, as you feel better and your symptoms improve. If at any time your symptoms start getting worse again, go back to clear liquids until you feel better. Food preparation If you have diarrhea, you should not prepare food for others. When preparing foods, wash your hands before and after. Wash your hands or use alcohol-based sole painter after using cutting boards, countertops, and knives that have been in contact with raw food. Dry your hands with a single use towel. Keep uncooked meats away from cooked and eofbv-de-vyt foods. Follow-up care Follow up with your healthcare provider, or as advised. Call if you don't get better in the next 2 to 3 days. If a stool (diarrhea) sample was taken, or cultures done, you will be told if they are positive, or if your treatment needs to be changed. You may call as directed for the results. If X-rays were taken, you will be notified of any new findings that may affect your care Call 911 Call 911 if any of these occur: Trouble breathing Chest pain Confusion Severe drowsiness or trouble awakening Fainting or loss of consciousness Rapid heart rate Seizure Stiff neck Severe weakness, dizziness, or lightheadedness When to seek medical advice Call your healthcare provider right away if any of these occur: Bloody or black vomit or stools Severe, steady abdominal pain or any abdominal pain that is getting worse Severe headache or stiff neck An inability to hold down even sips of liquids for more than 12 hours Vomiting that lasts more than 24 hours Diarrhea that lasts more than 24 hours Fever of 100.4 F (38.0 C) or higher, or as directed by your healthcare provider Yellowish color to your skin or the whites of your eyes Signs of dehydration, such as dry mouth, little urine (less than every 6 hours), or very dark urine [id number] [employer] [address] [place] [address]. All rights reserved. This information is not intended as a substitute for professional medical care. Always follow your healthcare professional's instructions. Follow Up Care 06/27/2023 18:33:12 With:Follow up with primary care provider Address:Unknown When:2-4 days [facility] 06-27-2023 Note Discharge Instructions Thank you for allowing [facility] to assist you with your healthcare needs. The following is important discharge information regarding your hospital visit. Diagnosis from Today's Visit Diarrhea and vomiting Hypokalemia What to Do Next Instructions from Your Care Team No qualifying data available. Post Acute Orders No qualifying data available. You Need to Schedule the Following Appointments Follow Up with Follow up with primary care provider When: When:Within 2-4 days Allergies NKA Medications Please ask your primary doctor or pharmacist before taking any other medication not listed, including over the counter drugs, herbal medications, vitamins and or supplements as they may interact with your home medications. What How Much When Instructions Last Dose Unchanged azithromycin (Zithromax Z-Ede 250 mg oral tablet) 1 dose by mouth Every day Duration: 5 Days Please take this list to your next doctor s visit. Bring all medications you take, including over the counter medications, herbals and other supplements with you to your doctor s visit. Patients and families are reminded to discard old lists and to update any records with all medication providers or retail pharmacies. Education Materials Nonspecific Vomiting and Diarrhea (Adult) Vomiting and diarrhea can have many causes, including: Helping your body get rid of harmful substances Gastroenteritis caused by viruses, parasites, bacteria, or toxins. Allergy to or side effect of a food or medicine Severe stress or worry (anxiety) Other illnesses It is often hard to pinpoint an exact cause, even with testing. Vomiting and diarrhea often go away within a day or two without problems. If they continue, though, they can lead to too much loss of fluid (dehydration). This can be serious if not treated. Home care Medicines You may use acetaminophen or NSAID medicines like ibuprofen or naproxen to control fever, unless another medicine was prescribed. If you have chronic liver or kidney disease, talk with your healthcare provider before using these medicines. Also talk with your provider if you've had a stomach ulcer or gastrointestinal bleeding. Don't give aspirin to anyone under 18 years of age who is ill with a fever because it may cause severe disease or . Don't use NSAID medicines if you are already taking one for another condition (like arthritis) or are on aspirin (such as for heart disease or after a stroke) Uywt-uac-qmcrdti medicines for diarrhea, nausea, and vomiting are generally OK unless you have bleeding, fever, or severe abdominal pain. General care If symptoms are severe, rest at home for the next 24 hours, or until you are feeling better. Washing your hands with soap and water, or using alcohol-based hand sole painter is the best way to stop the spread of infection. Wash your hands after touching anyone who is sick. Wash your hands after using the toilet and before meals. Clean the toilet after each use. Dry your hands with a single use towel. Caffeine, tobacco, and alcohol can make the diarrhea, cramping, and pain worse. Remember, caffeine not only is in coffee, but also is in chocolate, some energy drinks, and teas. Diet Water and clear liquids are important so you don't get dehydrated. Drink a small amount at a time. Don't guzzle down the drinks. That may increase your nausea, make cramping worse, and cause the drinks to come back up. Sports drinks may also help if you are healthy and not too dehydrated. They have too much sugar and not enough electrolytes and can sometimes make things worse. Also, don't drink beverages that are too acidic, like orange juice and grape juice. If you are very dehydrated, commercially available products called oral rehydration solutions are best. Food Don't force yourself to eat, especially if you have cramps, diarrhea, or vomiting. Eat just a little at a time, and then wait a few minutes before you try to eat more. Don't eat fatty, greasy, spicy, or fried foods. Don't eat dairy products if you have diarrhea. They can make it worse. During the first 24 hours (the first full day), follow the diet below: Beverages: Oral rehydration solutions, sports drinks, soft drinks without caffeine, mineral water, and decaffeinated tea and coffee Soups: Clear broth, consomm , and bouillon Desserts: Plain gelatin, popsicles, and fruit juice bars During the next 24 hours (the second day), you may add the following to the above if you are better. If not, continue what you did the first day: Hot cereal, plain toast, bread, rolls, crackers Plain noodles, rice, mashed potatoes, chicken noodle or rice soup Unsweetened canned fruit (avoid pineapple), bananas Limit fat intake to less than 15 grams per day by avoiding margarine, butter, oils, mayonnaise, sauces, gravies, fried foods, peanut butter, meat, poultry, and fish. Limit fiber. Avoid raw or cooked vegetables, fresh fruits (except bananas) and bran cereals. Limit caffeine and chocolate. No spices or seasonings except salt. During the next 24 hours: Gradually resume a normal diet, as you feel better and your symptoms improve. If at any time your symptoms start getting worse again, go back to clear liquids until you feel better. Food preparation If you have diarrhea, you should not prepare food for others. When preparing foods, wash your hands before and after. Wash your hands or use alcohol-based sole painter after using cutting boards, countertops, and knives that have been in contact with raw food. Dry your hands with a single use towel. Keep uncooked meats away from cooked and owaxg-rw-flf foods. Follow-up care Follow up with your healthcare provider, or as advised. Call if you don't get better in the next 2 to 3 days. If a stool (diarrhea) sample was taken, or cultures done, you will be told if they are positive, or if your treatment needs to be changed. You may call as directed for the results. If X-rays were taken, you will be notified of any new findings that may affect your care Call 911 Call 911 if any of these occur: Trouble breathing Chest pain Confusion Severe drowsiness or trouble awakening Fainting or loss of consciousness Rapid heart rate Seizure Stiff neck Severe weakness, dizziness, or lightheadedness When to seek medical advice Call your healthcare provider right away if any of these occur: Bloody or black vomit or stools Severe, steady abdominal pain or any abdominal pain that is getting worse Severe headache or stiff neck An inability to hold down even sips of liquids for more than 12 hours Vomiting that lasts more than 24 hours Diarrhea that lasts more than 24 hours Fever of 100.4 F (38.0 C) or higher, or as directed by your healthcare provider Yellowish color to your skin or the whites of your eyes Signs of dehydration, such as dry mouth, little urine (less than every 6 hours), or very dark urine [employer] [address] [place] [address]. All rights reserved. This information is not intended as a substitute for professional medical care. Always follow your healthcare professional's instructions. Additional Information VACCINATE! IT SAVES LIVES! Members of the community who have not yet received the COVID-19 vaccine and would like to receive it can visit one of [facility] vaccine clinics. There are many vaccine clinic locations within the [facility]. For locations and available times, please visit [email or web address] It is important to note that some COVID mobile vaccine clinics are held outdoors and may be canceled in rainy or stormy conditions. To learn more about pediatric vaccinations (ages 5-11), we invite you to visit the [facility] webpage. [email or web address] To learn more about the COVID-19 vaccine, we invite you to visit the CDC website for a list of frequently asked questions. https://www.cdc.gov/coronavirus/ 2019-ncov/vaccines/faq.html [facility] Patient Portal Access Instructions: Stay connected with your healthcare team and access your personal medical information anytime with the [employer] Patient Portal. If you would like a full copy of your medical records please contact the [facility] Medical Records Department Tuesday through Tuesday between 8a.m. and 4:30p.m. Please follow the directions below to access the portal: 1.Access the email account you provided upon registration to the [facility].2.Look for an invitation email from [facility].3.Open the email and access the invitation link: Accept Invitation to [employer]4.Fill in the required quiroz to create your account. Sign into [email or web address] with your username and password that you [...] you will allow to register on the [employer] Patient Portal for access to your information. You can also access the [facility] Patient Portal on the [employer] joshua. Simply click on Health Records under [...] Call your local pharmacy or go to [email or web address] to find one close to you.3.Make use of household items: Use cat litter or old coffee grounds to dispose medications if other options are not available. Mix your drugs with these household products, seal them in an airtight container and throw it into the garbage. Call [facility]: [phone] to be sure your drugs can be [...] a CHART COPY Signatures Patient Education Materials Vomiting and Diarrhea, Nonspecific (Adult) Medication Leaflets My discharge plan and instructions have been reviewed and explained to me and I,CHELI OSMAN understand my current condition and have read and understand these discharge instructions. I have received a written copy of the plan/instructions. If I have questions, I am aware that I should contact my doctor. 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 No fever or body aches. 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 Only able to keep some sips of water a couple crackers down in over 24 hours. Starting to feel weak, but no dizziness yet. She is planning to go to ER for IV fluids and nausea medication. Next visit is 07/04. Advised to call back if sooner appointment needed after ER. FYI. Laisha Marsh RN documented in this encounter [facility] 06-27-2023 Telephone encounter Note 11w3d Calling with c/o vomiting and diarrhea. No fever or body aches. 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 Only able to keep some sips of water a couple crackers down in over 24 hours. Starting to feel weak, but no dizziness yet. She is planning to go to ER for IV fluids and nausea medication. Next visit is 07/04. Advised to call back if sooner appointment needed after ER. FYI. Laisha Marsh RN [facility] 06-13-2023 Instructions Nate Aviles APRN.CNP - 06/13/2023 4:26 PM EDT In the medical field, there is always a level of diagnostic uncertainty, even if this uncertainty is low. For this reason, it is important to immediately go to the emergency department if you have any new symptoms, worsening symptoms, change of symptoms, or if you have any other concerns. They would be happy to evaluate you. Otherwise, please take your medications as prescribed and follow-up as recommended. documented in this encounter [facility] 06-13-2023 History of Presen t illness Narrative [facility] [address] [address] Dept: [phone] Dept Subjective Cheli Osman is a 28 year old female who presents with Sore Throat (FOR 2 DAYS ), Nausea & Vomiting, Ear Pain (RIGHT EAR ), and Fever (100.7) HPI: A 28-year-old female who is a 9 weeks comes in with complaints of 2 days worth of right ear pain, fever, sore throat. Patient states also some slight nausea and vomiting. She states it does hurt to swallow. Has not utilize any bupq-lgh-dajcfgd medications to help with symptoms. Denies any other complaints at this time. Aside from symptoms as described above, patient has no other complaints at this time. Review of Systems Constitutional: Positive for fever. Negative for chills and malaise/fatigue. HENT: Positive for ear pain and sore throat. Negative for congestion, ear discharge and sinus pain. Respiratory: Negative for cough, shortness of breath and wheezing. Cardiovascular: Negative for chest pain. Gastrointestinal: Positive for nausea and vomiting. Negative for abdominal pain, constipation and diarrhea. Musculoskeletal: Negative for myalgias. Neurological: Negative for headaches. Endo/Heme/Allergies: Negative for environmental allergies. ALLERGIES No Known Allergies Current Outpatient Medications on File Prior to Visit Medication Sig acetaminophen (TYLENOL ORAL) Take by mouth as needed. cranberry fruit extract (CRANBERRY EXTRACT ORAL) Take by mouth. ferrous sulfate (IRON) 325 mg (65 mg iron) tablet Take 1 tablet by mouth two times a day. multivitamin (CLASSIC ) 28 mg iron- 800 mcg tab(s) Take 1 tablet by mouth once daily. No current facility-administered medications on file prior to visit. ACTIVE PROBLEM LIST History of Yagv-Zxsim-Pglvmdm Disease History of Gestational Diabetes Mellitus Forceps Or Vacuum Extractor Delivery Vaginal Bleeding Obesity Affecting in First Trimester Encounter for Supervision of High Risk in First Trimester, Antepartum M-Power Referred Social History Tobacco Use Smoking status: Never Passive exposure: Never Smokeless tobacco: Never Vaping Use Vaping Use: Never used Substance Use Topics Alcohol use: Not Currently Drug use: Never Objective BP 119/79 Pulse 95 Temp 36.7 C (98 F) (Oral) Resp 17 Wt 83.8 kg (184 lb 12.8 oz) LMP 04/01/2023 (Exact Date) SpO2 99% BMI 34.92 kg/m Physical Exam Vitals and nursing note reviewed. Constitutional: General: She is awake. She is not in acute distress. Appearance: Normal appearance. She is well-developed and well-groomed. She is not ill-appearing, toxic-appearing or diaphoretic. HENT: Head: Normocephalic and atraumatic. Right Ear: Ear canal and external ear normal. A middle ear effusion is present. No mastoid tenderness. Tympanic membrane is bulging. Tympanic membrane is not injected or erythematous. Left Ear: Ear canal and external ear normal. A middle ear effusion is present. No mastoid tenderness. Tympanic membrane is injected and bulging. Tympanic membrane is not erythematous. Ears: Comments: Bilateral purulent drainage behind TM Nose: Right Sinus: No maxillary sinus tenderness or frontal sinus tenderness. Left Sinus: No maxillary sinus tenderness or frontal sinus tenderness. Mouth/Throat: Lips: [place]. Mouth: Mucous membranes are moist. No oral lesions. Pharynx: Oropharynx is clear. Posterior oropharyngeal erythema present. No oropharyngeal exudate. Tonsils: No tonsillar exudate or tonsillar abscesses. 1+ on the right. 1+ on the left. Eyes: Conjunctiva/sclera: Conjunctivae normal. Cardiovascular: Rate and Rhythm: Normal rate and regular rhythm. Heart sounds: Normal heart sounds. Pulmonary: Effort: Pulmonary effort is normal. No accessory muscle usage or respiratory distress. Breath sounds: Normal breath sounds and air entry. No decreased air movement. No wheezing. Abdominal: General: Abdomen is flat. Bowel sounds are normal. There is no distension. Palpations: Abdomen is soft. There is no mass. Tenderness: There is no abdominal tenderness. There is no guarding or rebound. Negative signs include Dickey's sign, Rovsing's sign and McBurney's sign. Hernia: No hernia is present. Musculoskeletal: General: Normal range of motion. Cervical back: Normal range of motion and neck supple. Lymphadenopathy: Head: Right side of head: No submandibular or tonsillar adenopathy. Left side of head: No submandibular or tonsillar adenopathy. Cervical: No cervical adenopathy. Skin: General: Skin is warm and dry. Neurological: General: No focal deficit present. Mental Status: She is alert and oriented to person, place, and time. Psychiatric: Mood and Affect: Mood normal. Behavior: Behavior normal. Behavior is cooperative. Assessment/Plan ASSESSMENT/PLAN: 1. Non-recurrent acute serous otitis media of both ears - ICD9: 381.01, ICD10: H65.03 (primary diagnosis) - AMOXICILLIN 875 MG TABLET 2. 9 weeks gestation of - ICD9: V22.2, ICD10: Z3A.09 3. Pharyngitis, unspecified etiology - ICD9: 462, ICD10: J02.9 - AMOXICILLIN 875 MG TABLET Nate Aviles APRN.PROFESSOR OF PATHOLOGY Patient was informed that examination is consistent with serious otitis media bilaterally. Patient started on antibiotics. Patient was informed to continue to be mindful of nausea and vomiting. If it seems like the symptoms or not improving or worsening at any time she must follow-up with [facility] or ER for further evaluation. States understanding agrees above plan of care. Patient given educational materials - see patient instructions. Discussed use, benefit, and side effects of prescribed medications. All patient questions answered. Pt voiced understanding and agrees with treatment plan. Patient advised if symptoms worsen or persist, they are to follow up with PCP or ED. Patient agreeable with treatment plan. Eliud was used to dictate this note. Nate Aviles APRN-DIRECTOR PRODUCT SAFETY 06/13/2023 4:18 PM documented in this encounter [facility] 06-13-2023 Note HNO ID: [id number] Author: NATE AVILES APRN.CNP Service: ? Author Type: Nurse Practitioner Type: Progress Notes Filed: 06/13/2023 16:40 Note Text: [facility] [place] [address] [facility] [address] Dept: [phone] Dept Subjective Cheli Osman is a 28 year old female who presents with Sore Throat (FOR 2 DAYS ), Nausea AND Vomiting, Ear Pain (RIGHT EAR ), and Fever (100.7) HPI: A 28-year-old female who is a 9 weeks comes in with complaints of 2 days worth of right ear pain, fever, sore throat. Patient states also some slight nausea and vomiting. She states it does hurt to swallow. Has not utilize any lzzl-jeh-dgbgpei medications to help with symptoms. Denies any other complaints at this time. Aside from symptoms as described above, patient has no other complaints at this time. Review of Systems Constitutional: Positive for fever. Negative for chills and malaise/fatigue. HENT: Positive for ear pain and sore throat. Negative for congestion, ear discharge and sinus pain. Respiratory: Negative for cough, shortness of breath and wheezing. Cardiovascular: Negative for chest pain. Gastrointestinal: Positive for nausea and vomiting. Negative for abdominal pain, constipation and diarrhea. Musculoskeletal: Negative for myalgias. Neurological: Negative for headaches. Endo/Heme/Allergies: Negative for environmental allergies. ALLERGIES No Known Allergies Current Outpatient Medications on File Prior to Visit Medication Sig acetaminophen (TYLENOL ORAL) Take by mouth as needed. cranberry fruit extract (CRANBERRY EXTRACT ORAL) Take by mouth. ferrous sulfate (IRON) 325 mg (65 mg iron) tablet Take 1 tablet by mouth two times a day. multivitamin (CLASSIC ) 28 mg iron- 800 mcg tab(s) Take 1 tablet by mouth once daily. No current facility-administered medications on file prior to visit. ACTIVE PROBLEM LIST History of Smvx-Hbxif-Tknbdvt Disease History of Gestational Diabetes Mellitus Forceps Or Vacuum Extractor Delivery Vaginal Bleeding Obesity Affecting in First Trimester Encounter for Supervision of High Risk in First Trimester, Antepartum M-Power Referred Social History Tobacco Use Smoking status: Never Passive exposure: Never Smokeless tobacco: Never Vaping Use Vaping Use: Never used Substance Use Topics Alcohol use: Not Currently Drug use: Never Objective BP 119/79 Pulse 95 Temp 36.7 ?C (98 ?F) (Oral) Resp 17 Wt 83.8 kg (184 lb 12.8 oz) LMP 04/01/2023 (Exact Date) SpO2 99% BMI 34.92 kg/m? Physical Exam Vitals and nursing note reviewed. Constitutional: General: She is awake. She is not in acute distress. Appearance: Normal appearance. She is well-developed and well-groomed. She is not ill-appearing, toxic-appearing or diaphoretic. HENT: Head: Normocephalic and atraumatic. Right Ear: Ear canal and external ear normal. A middle ear effusion is present. No mastoid tenderness. Tympanic membrane is bulging. Tympanic membrane is not injected or erythematous. Left Ear: Ear canal and external ear normal. A middle ear effusion is present. No mastoid tenderness. Tympanic membrane is injected and bulging. Tympanic membrane is not erythematous. Ears: Comments: Bilateral purulent drainage behind TM Nose: Right Sinus: No maxillary sinus tenderness or frontal sinus tenderness. Left Sinus: No maxillary sinus tenderness or frontal sinus tenderness. Mouth/Throat: Lips: [place]. Mouth: Mucous membranes are moist. No oral lesions. Pharynx: Oropharynx is clear. Posterior oropharyngeal erythema present. No oropharyngeal exudate. Tonsils: No tonsillar exudate or tonsillar abscesses. 1+ on the right. 1+ on the left. Eyes: Conjunctiva/sclera: Conjunctivae normal. Cardiovascular: Rate and Rhythm: Normal rate and regular rhythm. Heart sounds: Normal heart sounds. Pulmonary: Effort: Pulmonary effort is normal. No accessory muscle usage or respiratory distress. Breath sounds: Normal breath sounds and air entry. No decreased air movement. No wheezing. Abdominal: General: Abdomen is flat. Bowel sounds are normal. There is no distension. Palpations: Abdomen is soft. There is no mass. Tenderness: There is no abdominal tenderness. There is no guarding or rebound. Negative signs include Dickey's sign, Rovsing's sign and McBurney's sign. Hernia: No hernia is present. Musculoskeletal: General: Normal range of motion. Cervical back: Normal range of motion and neck supple. Lymphadenopathy: Head: Right side of head: No submandibular or tonsillar adenopathy. Left side of head: No submandibular or tonsillar adenopathy. Cervical: No cervical adenopathy. Skin: General: Skin is warm and dry. Neurological: General: No focal deficit present. Mental Status: She is alert and oriented to person, place, and time. (more content not included)... [facility] 06-07-2023 Telephone encounter Note 1st risk assessment form submitted 06/07/23 Kt Abdalla RN [facility] 06-07-2023 Miscellaneous Notes 1st risk assessment form submitted 06/07/23 Kt Abdalla RN documented in this encounter [facility] 06-06-2023 Instructions Osamr Read MA - 06/06/2023 8:43 AM EDT Please select the following link to access the [facility] Your Guide to a Healthy . [email or web address] documented in this encounter [facility] 06-06-2023 Note HNO ID: [id number] Author: HEATHER HANSON MA Service: ? Author Type: Loft Worker Head Type: Progress Notes Filed: 06/06/2023 10:18 Note Text: OB point of care ultrasound was performed. See imaging tab for details. Heather Hanson MA [facility] 06-06-2023 History of Presen t illness Narrative OB point of care ultrasound was performed. See imaging tab for details. Heather Hanson MA INITIAL OB ASSESSMENT HPI: Bibiana is a 28 year old White here to establish Obstetrical Care. Patient's last menstrual period was 04/01/2023 (exact date). from OB Dating Form. was planned Complaints: (!) Vaginal bleeding-see phone note dated 06/02/2023 Spotting dark brown/red - no active bleeding or cramping OB History T1 L1 SAB1 IAB0 Ectopic0 Multiple0 Live Births1 # 1 - Date: None, Sex: None, Weight: None, GA: None, Delivery: None, Apgar1: None, Apgar5: None, Living: None, Comments: None # 2 - Date: 05/28/21, Sex: Female, Weight: 8 lb 5 oz (3.771 kg), GA: 40w2d, Delivery: Vaginal, Vacuum (Extractor), Apgar1: 8, Apgar5: 9, Living: Living, Comments: induction for GDM, EBL 400mL, vacuum for maternal exhaustion, 2nd degree perineal laceration, loose nuchal cord x1 # 3 - Date: 02/18/23, Sex: None, Weight: None, GA: 16w0d, Delivery: SPONTANEOUS , Apgar1: None, Apgar5: None, Living: None, Comments: D&C # 4 - Date: None, Sex: None, Weight: None, GA: None, Delivery: None, Apgar1: None, Apgar5: None, Living: None, Comments: None Previous history: Prior : never History of 4th degree laceration: No History of shoulder dystocia: No History of Hypertensive disorders including pre-eclampsia or gestational hypertension: No History of gestational diabetes: Yes Patient's Risk Screening for delivery: Have you had a prior cash between 20w and 36w6d? No How many pregnancies have you had before? 2 Did you have a previous baby with a GBS Infection? No Please select all that apply for any prior : N/A MEDICAL/PSYCHOSOCIAL HISTORY: History of hemorrhage or bleeding concerns: No Thyroid Disease: No History of chronic hypertension: No History of pre-existing diabetes: No ABO/RH(D) Date Value Ref Range Status 12/15/2020 A POSITIVE Final BMI 34.62 kg/(m^2) Last Pap: 11/25/2020 History of abnormal pap: No Prior treatment for cervical dysplasia: none. History of STDs: None Partner History of STDs: None Did you have a partner with Herpes? No Tobacco use: No E-Cigarette/Vaping Use: No Caffeine use: Yes 1 cup of coffee a day Drug use: No Alcohol use: No Multivitamin with Folic acid: Yes Would refuse blood transfusion if medically necessary: No Social Needs: How often does this describe you? I don't have enough money to pay my bills: Sometimes Within the past 12 months, have you worried that your food would run out before you had money to buy more? Sometimes In the past 12 months, has lack of reliable transportation kept you from going to medical appointments or work, or from getting things needed for daily living? Never In the past 12 months, have you had any concerns about having a place to live, or about the condition or quality of your housing? Never Would you like more information on any of the following (please check all that apply)? Not interested Social History: Do you have any history of depression, anxiety, PTSD, or other mood problems? 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 No Are you currently employed? Yes [employer] Depression/Anxiety Screening: denies symptoms of depression. OB Depression and Anxiety Screening- This Encounter (since 06/05/2023) None Genetic Screening: Partner present: yes Patient verbalized knowledge of partner family health history: Yes Do you or your partner have any personal or family history of defects not previously discussed: No Do you have history of a complicated by anomaly, genetic condition, or demise: No ACOG Recommended Screening: Screening for early gestational diabetes testing: Criteria for early testing requires elevated BMI plus one other risk factor: BMI 34.62 kg/(m^2) (risk factor if > than 25 or 23 in Americans) Additional risk factors: Previous gestational diabetes mellitus She does meet ACOG criteria for early gestational DM screening. Screening for low dose aspirin use for the prevention of pre-eclampsia: Low dose aspirin should be considered if the patient has one high or two moderate risk factors: High risk factors: None Moderate risk ractors: None She does meet criteria for low dose ASA OB Risk Screening: Completed, no positive findings documented. Marital Status:Committed relationship Partner: Name: Juan Jose Metz Age: 28 Occupation: none Gender: Male Does patient have penicillin allergy: No REVIEW OF SYSTEMS: GENERAL: Negative for: Fever or Chills and Positive for: Fatigue HEENT: Negative for: Headache, Impaired Vision, Ringing in Ears, Nosebleeds NECK: Negative for: Swelling, Pain, Stiffness RESPIRATORY: Negative for: Cough, Shortness of breath, Wheezing GASTROINTESTINAL: Negative for: Heartburn, Constipation, Diarrhea, Blood in stool, Vomiting and Positive for: Constipation MUSCULOSKELETAL: Negative for: Muscle or joint pain, stiffness, Joint swelling NEUROLOGIC/PSYCHIATRIC: Negative for: Weakness, Paralysis, Numbness, Tingling, Tremor, Anxiety, Depression, Memory loss SKIN: Negative for: Rash, Itching GENITOURINARY: Negative for: vaginal itching, vaginal discharge, hematuria or dysuria PHYSICAL EXAM: BP 100/64 Ht 5' 1 (1.55m) Wt 183 lb 3.2 oz (83.1kg) LMP 04/01/2023 BMI 34.63 kg/(m^2). GENERAL: pleasant in no apparent distress DERMATOLOGY: Normal and without lesions NECK: Supple and full range of motion CHEST: Normal inspiratory effort BREAST: soft, non-tender, symmetric, no dominant mass, normal nipple-areolar complex, no lymphadenopathy, and no nipple discharge ABDOMEN: soft, non-tender, and no masses NEURO: alert and oriented x3,exam grossly non-focal PELVIS: External genitalia normal without lesions. Perineal body intact. No vaginal or cervical lesions. Cervix closed. Uterus 7-8 week size. No adnexal masses or tenderness. Clinical Pelvimetry: Pelvimetry clinically assessed as adequate Limited OB ultrasound exam: single intrauterine , positive cardiac activity, and crown-rump length 8.3 weeks gestation BRODERICK updated to 01/13/24 based off of today's US measurements ASSESSMENT/PLAN: 1. with uncertain dates in first trimester - ICD9: V22.1, ICD10: Z34.91 (primary diagnosis) 2. History of gestational diabetes mellitus - ICD9: V12.21, ICD10: Z86.32 3. Forceps or vacuum extractor delivery - ICD9: 669.51, ICD10: Z37.9 4. Screening for cervical cancer - ICD9: V76.2, ICD10: Z12.4 5. Screening for human papillomavirus - ICD9: V73.81, ICD10: Z11.51 6. Vaginal bleeding - ICD9: 623.8, ICD10: N93.9 7. History of Zwvu-Tcqby-Rduihmk disease - ICD9: V13.59, ICD10: Z87.39 8. 8 weeks gestation of - ICD9: V22.2, ICD10: Z3A.08 9. Obesity affecting in first trimester, unspecified obesity type - ICD9: 649.13, ICD10: O99.211 10. Encounter for supervision of high risk in first trimester, antepartum - ICD9: V23.9, ICD10: O09.91 PLAN: 1) Patient oriented to practice. Discussed nutrition, folic acid supplementation, dietary guidelines, exercise, smoking, alcohol, caffeine, and drug use. Discussed gestational weight gain guidelines. Discussed routine OB labs including STD/HIV. Discussed how to access Your guide to a health and the [employer]. Discussed aneuploidy screening, nuchal translucency/first trimester early anatomy ultrasound and NIPT. The risks/benefits and limitations of NIPT/aneuploidy screening were reviewed including the potential for false negative and false positive results. The availability of genetic counseling was reviewed. Information on aneuploidy screening was provided. The patient declines screening Discussed myriad carrier screening. We discussed the availability of professional-society guided carrier screening and reviewed the conditions screened and limitations of screening. The availability of genetic counseling was reviewed. Information on carrier screening was provided. The patient Declines Discussed hemoglobin electrophoresis. Patient: Declines Reviewed midwifery and clothes drier assembler services that are available. Reviewed [employer] program. Patient desires referral. 2) Patient offered option of Virtual Visits. Patient prefers in person visits. Follow up in 4 weeks for NT US and IRENE or sooner prgenaro Pineda APRN.CNM documented in this encounter [facility] 06-02-2023 Telephone encounter Note Noted Harrison Cam MD [facility] Work Phone: 06-02-2023 Miscellaneous Notes Noted Harrison Cam MD Patient had telephone OB intake today. Her last menstrual period was April 01 making her 8 weeks and 6 days. She has had spotting on and off for 2 to 3 weeks that has been dark brown in color. She has noted cramping that she rates a 1 on the pain scale. She has an appointment on Tuesday for a new OB. Patient is comfortable with waiting until her appointment on Tuesday to be evaluated. Miscarriage precautions given. Patient is to call/come in if she develops any increase in her bleeding or pain or as needed problems. Call only if further advice. documented [facility] this [facility] [facility] 06[facility]2023 Note HNO ID: [id number] Author: MELONY PINEDA APRN.CNM Service: ? Author Type: Mower Mechanic Type: Progress Notes Filed: 06/06/2023 10:18 Note Text: INITIAL OB ASSESSMENT HPI: Bibiana is a 28 year old White here to establish Obstetrical Care. Patient's last menstrual period was 04/01/2023 (exact date). from OB Dating Form. was planned Complaints: (!) Vaginal bleeding-see phone note dated 06/02/2023 Spotting dark brown/red - no active bleeding or cramping OB History T1 L1 SAB1 IAB0 Ectopic0 Multiple0 Live Births1 # 1 - Date: None, Sex: None, Weight: None, GA: None, Delivery: None, Apgar1: None, Apgar5: None, Living: None, Comments: None # 2 - Date: 05/28/21, Sex: Female, Weight: 8 lb 5 oz (3.771 kg), GA: 40w2d, Delivery: Vaginal, Vacuum (Extractor), Apgar1: 8, Apgar5: 9, Living: Living, Comments: induction for GDM, EBL 400mL, vacuum for maternal exhaustion, 2nd degree perineal laceration, loose nuchal cord x1 # 3 - Date: 02/18/23, Sex: None, Weight: None, GA: 16w0d, Delivery: SPONTANEOUS , Apgar1: None, Apgar5: None, Living: None, Comments: DANDC # 4 - Date: None, Sex: None, Weight: None, GA: None, Delivery: None, Apgar1: None, Apgar5: None, Living: None, Comments: None Previous history: Prior : never History of 4th degree laceration: No History of shoulder dystocia: No History of Hypertensive disorders including pre-eclampsia or gestational hypertension: No History of gestational diabetes: Yes Patient's Risk Screening for delivery: Have you had a prior cash between 20w and 36w6d? No How many pregnancies have you had before? 2 Did you have a previous baby with a GBS Infection? No Please select all that apply for any prior : N/A MEDICAL/PSYCHOSOCIAL HISTORY: History of hemorrhage or bleeding concerns: No Thyroid Disease: No History of chronic hypertension: No History of pre-existing diabetes: No ABO/RH(D) Date Value Ref Range Status 12/15/2020 A POSITIVE Final BMI 34.62 kg/(m2) Last Pap: 11/25/2020 History of abnormal pap: No Prior treatment for cervical dysplasia: none. History of STDs: None Partner History of STDs: None Did you have a partner with Herpes? No Tobacco use: No E-Cigarette/Vaping Use: No Caffeine use: Yes 1 cup of coffee a day Drug use: No Alcohol use: No Multivitamin with Folic acid: Yes Would refuse blood transfusion if medically necessary: No Social Needs: How often does this describe you? I don't have enough money to pay my bills: Sometimes Within the past 12 months, have you worried that your food would run out before you had money to buy more? Sometimes In the past 12 months, has lack of reliable transportation kept you from going to medical appointments or work, or from getting things needed for daily living? Never In the past 12 months, have you had any concerns about having a place to live, or about the condition or quality of your housing? Never Would you like more information on any of the following (please check all that apply)? Not interested Social History: Do you have any history of depression, anxiety, PTSD, or other mood problems? 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 No Are you currently employed? Yes [facility] Depression/Anxiety Screening: denies symptoms of depression. OB Depression and Anxiety Screening- This Encounter (since 06/05/2023) None Genetic Screening: Partner present: yes Patient verbalized knowledge of partner family health history: Yes Do you or your partner have any personal or family history of defects not previously discussed: No Do you have history of a complicated by anomaly, genetic condition, or demise: No ACOG Recommended Screening: Screening for early gestational diabetes testing: Criteria for early testing requires elevated BMI plus one other risk factor: BMI 34.62 kg/(m2) (risk factor if > than 25 or 23 in Americans) Additional risk factors: Previous gestational diabetes mellitus She does meet ACOG criteria for early gestational DM screening. Screening for low dose aspirin use for the prevention of pre-eclampsia: Low dose aspirin should be considered if the patient has one high or two moderate risk factors: High risk factors: None Moderate risk ractors: None She does meet criteria for low dose ASA OB Risk Screening: Completed, no positive findings documented. Marital Status:Committed relationship Partner: Name: Juan Jose Metz Age: 28 Occupation: none Gender: Male Does patient have penicillin allergy: No REVIEW OF SYSTEMS: GENERAL: Negative for: Fever or Chills and Positive for: Fatigue HEENT: Negative for: Headache, Impaired Vision, Ringing in Ears, Nose (more content not included)... [facility] 06-02-2023 Telephone encounter Note Patient had telephone OB intake today. Her last menstrual period was April 01 making her 8 weeks and 6 days. She has had spotting on and off for 2 to 3 weeks that has been dark brown in color. She has noted cramping that she rates a 1 on the pain scale. She has an appointment on Tuesday for a new OB. Patient is comfortable with waiting until her appointment on Tuesday to be evaluated. Miscarriage precautions given. Patient is to call/come in if she develops any increase in her bleeding or pain or as needed problems. Call only if further advice. [facility] 04-03-2023 Note HNO ID: [id number] Author: ARELIS TAPIA PA-C Service: ? Author Type: Physician Metal Lather Type: Progress Notes Filed: 04/03/2023 14:36 Note Text: This note was created using [employer]. Subjective Cheli Osman is a 28 year old female senting with a couple week history of respiratory symptoms. She states that seemed like it was, getting better and then worsened over the last few days she has productive cough now and complains of sinus congestion/pressure/pain.. Review of Systems All other systems reviewed and are negative. Objective BP 123/83 Pulse 101 Temp 36.4 ?C (97.6 ?F) (Temporal) Resp 18 Wt 84.7 kg (186 lb 12.8 oz) LMP 04/03/2023 (Exact Date) SpO2 99% BMI 35.30 kg/m? Physical Exam Vitals and nursing note reviewed. Constitutional: General: She is not in acute distress. Appearance: Normal appearance. She is not ill-appearing or toxic-appearing. HENT: Head: Normocephalic and atraumatic. Comments: Pain to palpation over maxillary sinus Right Ear: Tympanic membrane normal. Left Ear: Tympanic membrane normal. Nose: Nose normal. Mouth/Throat: Mouth: Mucous membranes are moist. Pharynx: Oropharynx is clear. Eyes: Conjunctiva/sclera: Conjunctivae normal. Pupils: Pupils are equal, round, and reactive to light. Cardiovascular: Rate and Rhythm: Normal rate and regular rhythm. Heart sounds: Normal heart sounds. Pulmonary: Effort: Pulmonary effort is normal. No respiratory distress. Breath sounds: No wheezing or rales. Comments: Coarse breath sounds throughout all lung quiroz Abdominal: General: Abdomen is flat. Bowel sounds are normal. Palpations: Abdomen is soft. Musculoskeletal: Cervical back: Normal range of motion. No rigidity. Lymphadenopathy: Cervical: No cervical adenopathy. Skin: General: Skin is warm and dry. Neurological: Mental Status: She is alert. Psychiatric: Mood and Affect: Mood normal. Thought Content: Thought content normal. Judgment: Judgment normal. Assessment and Plan Problem List Items Addressed This Visit None Visit Diagnoses Sinobronchitis - Primary Relevant Medications amoxicillin (AMOXIL) 875 mg tablet Clinical impression is acute URI with now secondary inflammation in the sinus and bronchus. Prescribed amoxicillin and instructed on supportive care and follow-up. Patient is agreeable above plan of care. Arelis Tapia PA-C [facility] 04-03-2023 History of Presen t illness Narrative This note was created using [employer]. Subjective Cheli Osman is a 28 year old female senting with a couple week history of respiratory symptoms. She states that seemed like it was, getting better and then worsened over the last few days she has productive cough now and complains of sinus congestion/pressure/pain.. Review of Systems All other systems reviewed and are negative. Objective BP 123/83 Pulse 101 Temp 36.4 C (97.6 F) (Temporal) Resp 18 Wt 84.7 kg (186 lb 12.8 oz) LMP 04/03/2023 (Exact Date) SpO2 99% BMI 35.30 kg/m Physical Exam Vitals and nursing note reviewed. Constitutional: General: She is not in acute distress. Appearance: Normal appearance. She is not ill-appearing or toxic-appearing. HENT: Head: Normocephalic and atraumatic. Comments: Pain to palpation over maxillary sinus Right Ear: Tympanic membrane normal. Left Ear: Tympanic membrane normal. Nose: Nose normal. Mouth/Throat: Mouth: Mucous membranes are moist. Pharynx: Oropharynx is clear. Eyes: Conjunctiva/sclera: Conjunctivae normal. Pupils: Pupils are equal, round, and reactive to light. Cardiovascular: Rate and Rhythm: Normal rate and regular rhythm. Heart sounds: Normal heart sounds. Pulmonary: Effort: Pulmonary effort is normal. No respiratory distress. Breath sounds: No wheezing or rales. Comments: Coarse breath sounds throughout all lung quiroz Abdominal: General: Abdomen is flat. Bowel sounds are normal. Palpations: Abdomen is soft. Musculoskeletal: Cervical back: Normal range of motion. No rigidity. Lymphadenopathy: Cervical: No cervical adenopathy. Skin: General: Skin is warm and dry. Neurological: Mental Status: She is alert. Psychiatric: Mood and Affect: Mood normal. Thought Content: Thought content normal. Judgment: Judgment normal. Assessment and Plan Problem List Items Addressed This Visit None Visit Diagnoses Sinobronchitis - Primary Relevant Medications amoxicillin (AMOXIL) 875 mg tablet Clinical impression is acute URI with now secondary inflammation in the sinus and bronchus. Prescribed amoxicillin and instructed on supportive care and follow-up. Patient is agreeable above plan of care. Arelis Tapia PA-C documented in this encounter [facility] 04-03-2023 Instructions Arelis Tapia PA-C - 04/03/2023 2:33 PM EST Rest, hydration, [id number] immune support documented in this encounter [facility] 03-29-2023 Note HNO ID: [id number] Author: HORACE TORRES PA-C Service: ? Author Type: Physician Metal Lather Type: Progress Notes Filed: 03/29/2023 09:51 Note Text: This is a healthy 28-year-old female who presents with an itchy rash on the inside of both arms and on her abdomen. She states it started 5 days ago. She is not aware of any new exposures including detergents, soaps, lotions, medications, cosmetics, foods, etc. She states it is itchy and irritating. She has tried taking Zyrtec. No current acute illnesses, she recently did get over URI-like symptoms about a week ago. Denies any fevers, chills, dizziness, difficulty swallowing or breathing, swelling to lips of the tongue, chest pain, shortness of breath, vomiting or diarrhea. The history is provided by the patient. Rash Pertinent negatives include no fever or shortness of breath. PAST MEDICAL HISTORY Diagnosis Date Antepartum anemia complicating in first trimester 11/21/2020 Asthma childhood -no attacks since age 9 Diet controlled gestational diabetes mellitus (GDM) in third trimester 03/16/2021 Xijf-Udync-Zurnvlk disease Current Outpatient Medications Medication Sig Dispense Refill multivitamin (CLASSIC ) 28 mg iron- 800 mcg tab(s) Take 1 tablet by mouth once daily. predniSONE (DELTASONE) 10 mg tablet Take 1 tablet by mouth once daily. TAKE 40 MG (4tabs) FOR TWO DAYS, THEN 20 MG (2tabs) FOR TWO DAYS, THEN 10 MG (1tab) FOR TWO DAYS 14 tablet 0 Vfivdazcijcjane-Atboejchq-UX (BROMFED DM) 2-30-10 mg/5 mL syrup Take 10 mL by mouth four times a day as needed. (Patient not taking: Reported on 03/29/2023) 118 mL 0 ferrous sulfate (IRON) 325 mg (65 mg iron) tablet Take 1 tablet by mouth two times a day. (Patient not taking: Reported on 03/29/2023) 30 tablet 3 No current facility-administered medications for this visit. Social History Tobacco Use Smoking status: Never Passive exposure: Never Smokeless tobacco: Never Vaping Use Vaping Use: Never used Substance Use Topics Alcohol use: Not Currently Drug use: Never Alcohol Use: Not Currently Tobacco Use: Never Review of Systems Constitutional: Negative for chills and fever. Respiratory: Negative for shortness of breath. Cardiovascular: Negative for chest pain and leg swelling. Skin: Positive for rash. Neurological: Negative for dizziness and headaches. BP 109/74 Pulse 63 Temp (Src) 98.3 (Temporal) Resp 19 Wt 185 lb (83.9kg) SpO2 100% LMP 10/29/2022 Physical Exam Vitals and nursing note reviewed. Constitutional: General: She is not in acute distress. Appearance: She is not ill-appearing or toxic-appearing. HENT: Head: Normocephalic and atraumatic. Nose: Nose normal. Mouth/Throat: Mouth: Mucous membranes are moist. Comments: No angioedema. Eyes: Conjunctiva/sclera: Conjunctivae normal. Cardiovascular: Rate and Rhythm: Normal rate and regular rhythm. Pulmonary: Effort: Pulmonary effort is normal. No respiratory distress. Breath sounds: No stridor. No wheezing, rhonchi or rales. Musculoskeletal: Cervical back: Neck supple. Comments: PRICE x 4 spontaneously and without difficulty Skin: General: Skin is warm and dry. Comments: Patches of erythematous raised rash on the inner bilateral upper arms. Small erythematous papular lesions of various sizes on the abdomen. No vesicular lesions. No plaque-like patches. No drainage. No dew on stephanie petal appearance. Neurological: Mental Status: She is alert. Comments: Awake and alert. Motor gross intact. Steady gait. This is a 28-year-old female presents with an itchy rash to both upper arms and abdomen. At the time of my exam, patient was afebrile, well-appearing, well-hydrated, not hypoxic, non-toxic and in no acute distress and appropriate for outpatient treatment and management. No systemic manifestations at this time. No clinical concern for secondary bacterial infection or cellulitis. At this time it is on known as to what is causing this rash. I do suspect likely irritant contact dermatitis given the symmetry of the location on both inner upper arms. I am going to start her on a prednisone taper. I encouraged antihistamines for itching. Discussed signs and symptoms, progression, and treatment. Patient education provided and discussed along with printed information regarding treatment and follow-up. Patient advised to follow-up withpatient's PCP in 3-5 days if no improvement in symptoms. Discussed signs/symptoms and red flags to monitor for and should symptoms worsen, advised patient to go to nearest ER for evaluation. Patient agreeable to plan and verbalized understanding. Pt discharged home in stable condition. ASSESSMENT/PLAN: 1. Dermatitis - ICD9: 692.9, ICD10: L30.9 - Oral Steriod tx -Prednisone taper - discussed skin care of rash - follow up if symptoms persist or worsen. - PREDNISONE 10 MG TABLET DUNG [facility] 03-29-2023 History of Presen t illness Narrative This is a healthy 28-year-old female who presents with an itchy rash on the inside of both arms and on her abdomen. She states it started 5 days ago. She is not aware of any new exposures including detergents, soaps, lotions, medications, cosmetics, foods, etc. She states it is itchy and irritating. She has tried taking Zyrtec. No current acute illnesses, she recently did get over URI-like symptoms about a week ago. Denies any fevers, chills, dizziness, difficulty swallowing or breathing, swelling to lips of the tongue, chest pain, shortness of breath, vomiting or diarrhea. The history is provided by the patient. Rash Pertinent negatives include no fever or shortness of breath. PAST MEDICAL HISTORY Diagnosis Date Antepartum anemia complicating in first trimester 11/21/2020 Asthma childhood -no attacks since age 9 Diet controlled gestational diabetes mellitus (GDM) in third trimester 03/16/2021 Yqnr-Zriep-Ktgkxkx disease Current Outpatient Medications Medication Sig Dispense Refill multivitamin (CLASSIC ) 28 mg iron- 800 mcg tab(s) Take 1 tablet by mouth once daily. predniSONE (DELTASONE) 10 mg tablet Take 1 tablet by mouth once daily. TAKE 40 MG (4tabs) FOR TWO DAYS, THEN 20 MG (2tabs) FOR TWO DAYS, THEN 10 MG (1tab) FOR TWO DAYS 14 tablet 0 Prrirbajhnlyjoc-Zdxgwhjui-JK (BROMFED DM) 2-30-10 mg/5 mL syrup Take 10 mL by mouth four times a day as needed. (Patient not taking: Reported on 03/29/2023) 118 mL 0 ferrous sulfate (IRON) 325 mg (65 mg iron) tablet Take 1 tablet by mouth two times a day. (Patient not taking: Reported on 03/29/2023) 30 tablet 3 No current facility-administered medications for this visit. Social History Tobacco Use Smoking status: Never Passive exposure: Never Smokeless tobacco: Never Vaping Use Vaping Use: Never used Substance Use Topics Alcohol use: Not Currently Drug use: Never Alcohol Use: Not Currently Tobacco Use: Never Review of Systems Constitutional: Negative for chills and fever. Respiratory: Negative for shortness of breath. Cardiovascular: Negative for chest pain and leg swelling. Skin: Positive for rash. Neurological: Negative for dizziness and headaches. BP 109/74 Pulse 63 Temp (Src) 98.3 (Temporal) Resp 19 Wt 185 lb (83.9kg) SpO2 100% LMP 10/29/2022 Physical Exam Vitals and nursing note reviewed. Constitutional: General: She is not in acute distress. Appearance: She is not ill-appearing or toxic-appearing. HENT: Head: Normocephalic and atraumatic. Nose: Nose normal. Mouth/Throat: Mouth: Mucous membranes are moist. Comments: No angioedema. Eyes: Conjunctiva/sclera: Conjunctivae normal. Cardiovascular: Rate and Rhythm: Normal rate and regular rhythm. Pulmonary: Effort: Pulmonary effort is normal. No respiratory distress. Breath sounds: No stridor. No wheezing, rhonchi or rales. Musculoskeletal: Cervical back: Neck supple. Comments: PRICE x 4 spontaneously and without difficulty Skin: General: Skin is warm and dry. Comments: Patches of erythematous raised rash on the inner bilateral upper arms. Small erythematous papular lesions of various sizes on the abdomen. No vesicular lesions. No plaque-like patches. No drainage. No dew on stephanie petal appearance. Neurological: Mental Status: She is alert. Comments: Awake and alert. Motor gross intact. Steady gait. This is a 28-year-old female presents with an itchy rash to both upper arms and abdomen. At the time of my exam, patient was afebrile, well-appearing, well-hydrated, not hypoxic, non-toxic and in no acute distress and appropriate for outpatient treatment and management. No systemic manifestations at this time. No clinical concern for secondary bacterial infection or cellulitis. At this time it is on known as to what is causing this rash. I do suspect likely irritant contact dermatitis given the symmetry of the location on both inner upper arms. I am going to start her on a prednisone taper. I encouraged antihistamines for itching. Discussed signs and symptoms, progression, and treatment. Patient education provided and discussed along with printed information regarding treatment and follow-up. Patient advised to follow-up with patient's PCP in 3-5 days if no improvement in symptoms. Discussed signs/symptoms and red flags to monitor for and should symptoms worsen, advised patient to go to nearest ER for evaluation. Patient agreeable to plan and verbalized understanding. Pt discharged home in stable condition. ASSESSMENT/PLAN: 1. Dermatitis - ICD9: 692.9, ICD10: L30.9 - Oral Steriod tx -Prednisone taper - discussed skin care of rash - follow up if symptoms persist or worsen. - PREDNISONE 10 MG TABLET Horace Torres PA-C documented in this encounter [facility] 03-29-2023 Instructions Horace Torres PA-C - 03/29/2023 9:40 AM EST Start the prednisone taper. Take 40 mg once daily for the first 2 days, 20 mg once daily for the next 2 days, and 10 mg for remaining 2 days. You can take Benadryl at night for the itching and a nonsedating antihistamine such as Zyrtec during the day Make sure keeping skin dry and moist Prompt reevaluation with worsening of symptoms PATIENT INSTRUCTIONS - RASH What is dermatitis? -- Dermatitis is a type of skin rash that can happen after your skin touches something that irritates it or something you are allergic to. Things that irritate the skin can be found in products you use every day, such as soaps or cleansers. Some of the things that can cause skin allergies include: ?Certain medicines, perfumes, or cosmetics ?The metal in some kinds of jewelry ?Plants, such as poison magdalena and poison oak Sometimes you can develop a rash the first time you touch something. But it is also possible to get a rash from something you have used before without any problems. What other symptoms should I watch for? -- If you have a rash, your skin might be red, dry, itchy, or cracked. If your rash is caused by an allergy, you might also have some swelling or blisters where you have the rash. Severe symptoms include: ?Pain ?Widespread swelling ?Large blisters, oozing, or crusting of the skin What can I do to get rid of my dermatitis? -- You can: ?Avoid using or touching whatever might have caused your rash ?Protect your skin from anything that might irritate it or cause an allergy. For example, wear gloves if you need to work with harsh soaps. ?Try using soothing skin products to help with the itching and discomfort. Things that might help include: Unscented, thick moisturizing cream A special kind of bath called an oatmeal bath Should I see a doctor or nurse? -- See your doctor or nurse if your rash does not go away within 2 weeks, or if it gets worse. Your doctor can help figure out what could be causing your rash. How are skin rashes treated? -- Your doctor might prescribe different treatments or medicines to help your rash. These can include: ?Steroid creams and ointments - These are not the same as the steroids some athletes take illegally. They go on the skin, and they relieve itching and redness. ?Steroid pills - You might need to take these for a short time if your rash is severe. But your doctor or nurse will want to take you off steroid pills as soon as possible. Even though these medicines help, they can also cause problems of their own. ?Wet or damp dressings - These can be helpful for skin that is crusting or oozing. To use a wet or damp dressing, you will need to wear 2 layers of clothing. First, you put on a layer of damp cotton clothes over your rash. Then, you put on a layer of dry clothes on top of the damp ones. People who need these dressings often wear them at night when they sleep. INFORMATION FROM UP TO DATE - ALL RIGHTS RESERVED documented in this encounter [facility] 03-19-2023 Note HNO ID: [id number] Author: KINGA RAMSAY MD Service: ? Author Type: Physician Type: Progress Notes Filed: 03/19/2023 12:44 Note Text: Cheli Osman is a 28 year old female who presents with Sore Throat (Sneezing coughing, pain with swallowing, hx of strep, unproductive cough, duration 2 days, no interventions ) HPI patient is a 28-year-old female who present to the [facility] this afternoon with complaint of nasal congestion, postnasal drainage, sneezing, sore throat, painful with swallowing and nonproductive cough, the symptoms started 2 days ago and patient tried hqsy-fgx-xpqpshg medication without relief and due to concern patient here for further evaluation and treatment. PAST MEDICAL HISTORY Diagnosis Date Antepartum anemia complicating in first trimester 11/21/2020 Asthma childhood -no attacks since age 9 Diet controlled gestational diabetes mellitus (GDM) in third trimester 03/16/2021 Hwpl-Hvshx-Ymkdmrb disease ACTIVE PROBLEM LIST History of Bjyc-Htezo-Efpdtis Disease Vaginal Bleeding Current Outpatient Medications Medication Sig Dispense Refill ferrous sulfate (IRON) 325 mg (65 mg iron) tablet Take 1 tablet by mouth two times a day. 30 tablet 3 multivitamin (CLASSIC ) 28 mg iron- 800 mcg tab(s) Take 1 tablet by mouth once daily. No current facility-administered medications for this visit. Medications were reviewed and verified. Social History Tobacco Use Smoking status: Never [...] Grandfather Review of Systems Constitutional: Negative for chills, fever and malaise/fatigue. HENT: Positive for congestion and sore throat. Negative for ear pain, nosebleeds, sinus pain and tinnitus. Eyes: Negative for blurred vision and pain. Respiratory: Positive for cough. Negative for sputum production, shortness of breath and wheezing. Cardiovascular: Negative for chest pain and palpitations. Gastrointestinal: Negative for nausea and vomiting. Musculoskeletal: Negative for myalgias. Skin: Negative for rash. Neurological: Negative for dizziness. BP 109/71 Pulse 89 Temp 98.1 Resp 20 Wt 186 lb 6.4 oz (84.6kg) SpO2 99% LMP 10/29/2022 Physical Exam Vitals and nursing note reviewed. Constitutional: General: She is not in acute distress. Appearance: Normal appearance. HENT: Right Ear: Tympanic membrane and ear canal normal. Left Ear: Tympanic membrane and ear canal normal. Nose: Congestion present. No rhinorrhea. Mouth/Throat: Mouth: Mucous membranes are moist. Pharynx: No oropharyngeal exudate or posterior oropharyngeal erythema. Eyes: Extraocular Movements: Extraocular movements intact. Conjunctiva/sclera: Conjunctivae normal. Pupils: Pupils are equal, round, and reactive to light. Cardiovascular: Rate and Rhythm: Normal rate and regular rhythm. Pulses: Normal pulses. Heart sounds: Normal heart sounds. Pulmonary: Breath sounds: Normal breath sounds. No wheezing or rales. Musculoskeletal: Cervical back: Normal range of motion and neck supple. Lymphadenopathy: Cervical: No cervical adenopathy. Skin: General: Skin is warm and dry. Findings: No rash. Psychiatric: Mood and Affect: Mood normal. ASSESSMENT/PLAN: 1. URI with cough and congestion - ICD9: 465.9, ICD10: J06.9 - Discussed viral etiology and rationale for treatment. - Symptomatic treatment with prn analgesia, Bromfed DM - Supportive care with fluids and rest - The patient may also use warm salt water gargles, throat lozenges and/or OTC throat spray as needed. - Follow up with primary care physician in 3-5 days if symptoms persist or sooner if worsening of symptoms - BROMPHENIRAMINE-PSEUDOEPHEDRINE- DM 2 MG-30 MG-10 MG/5 ML ORAL SYRUP Son Bubba RamsayMD [facility] History of Presen t illness Narrative Cheli Osman is a 28 year old female who presents with Sore Throat (Sneezing coughing, pain with swallowing, hx of strep, unproductive cough, duration 2 days, no interventions ) HPI patient is a 28-year-old female who present to the [facility] this afternoon with complaint of nasal congestion, postnasal drainage, sneezing, sore throat, painful with swallowing and nonproductive cough, the symptoms started 2 days ago and patient tried mbhx-kut-hyilrsh medication without relief and due to concern patient here for further evaluation and treatment. PAST MEDICAL HISTORY Diagnosis Date Antepartum anemia complicating in first trimester 11/21/2020 Asthma childhood -no attacks since age 9 Diet controlled gestational diabetes mellitus (GDM) in third trimester 03/16/2021 Kmoy-Zwmry-Paejlsp disease ACTIVE PROBLEM LIST History of Layu-Faffa-Pzojlne Disease Vaginal Bleeding Current Outpatient Medications Medication Sig Dispense Refill ferrous sulfate (IRON) 325 mg (65 mg iron) tablet Take 1 tablet by mouth two times a day. 30 tablet 3 multivitamin (CLASSIC ) 28 mg iron- 800 mcg tab(s) Take 1 tablet by mouth once daily. No current facility-administered medications for this visit. Medications were reviewed and verified. Social History Tobacco Use Smoking status: Never [...] Grandfather Review of Systems Constitutional: Negative for chills, fever and malaise/fatigue. HENT: Positive for congestion and sore throat. Negative for ear pain, nosebleeds, sinus pain and tinnitus. Eyes: Negative for blurred vision and pain. Respiratory: Positive for cough. Negative for sputum production, shortness of breath and wheezing. Cardiovascular: Negative for chest pain and palpitations. Gastrointestinal: Negative for nausea and vomiting. Musculoskeletal: Negative for myalgias. Skin: Negative for rash. Neurological: Negative for dizziness. BP 109/71 Pulse 89 Temp 98.1 Resp 20 Wt 186 lb 6.4 oz (84.6kg) SpO2 99% LMP 10/29/2022 Physical Exam Vitals and nursing note reviewed. Constitutional: General: She is not in acute distress. Appearance: Normal appearance. HENT: Right Ear: Tympanic membrane and ear canal normal. Left Ear: Tympanic membrane and ear canal normal. Nose: Congestion present. No rhinorrhea. Mouth/Throat: Mouth: Mucous membranes are moist. Pharynx: No oropharyngeal exudate or posterior oropharyngeal erythema. Eyes: Extraocular Movements: Extraocular movements intact. Conjunctiva/sclera: Conjunctivae normal. Pupils: Pupils are equal, round, and reactive to light. Cardiovascular: Rate and Rhythm: Normal rate and regular rhythm. Pulses: Normal pulses. Heart sounds: Normal heart sounds. Pulmonary: Breath sounds: Normal breath sounds. No wheezing or rales. Musculoskeletal: Cervical back: Normal range of motion and neck supple. Lymphadenopathy: Cervical: No cervical adenopathy. Skin: General: Skin is warm and dry. Findings: No rash. Psychiatric: Mood and Affect: Mood normal. ASSESSMENT/PLAN: 1. URI with cough and congestion - ICD9: 465.9, ICD10: J06.9 - Discussed viral etiology and rationale for treatment. - Symptomatic treatment with prn analgesia, Bromfed DM - Supportive care with fluids and rest - The patient may also use warm salt water gargles, throat lozenges and/or OTC throat spray as needed. - Follow up with primary care physician in 3-5 days if symptoms persist or sooner if worsening of symptoms - BROMPHENIRAMINE-PSEUDOEPHEDRINE- DM 2 MG-30 MG-10 MG/5 ML ORAL SYRUP Kinga Ramsay MD documented in this encounter [facility] 03-09-2023 Note HNO ID: [id number] Author: EFRAIN MONTES DE OCA MD Service: ? Author Type: Physician Type: Progress Notes Filed: 03/09/2023 10:52 Note Text: DATE OF SERVICE: 03/09/2023 PROBLEM: Cheli Osman presents for postop visit. SURGERY AND DATE: PATHOLOGY: Chorionic villi, decidualized stroma and trophoblastic cell. SUBJECTIVE/INTERVAL HISTORY: Cheli Osman reports that she feels well. No fever or chills. No shortness of breath, cough, or chest pain. No incission. Patient reports that her appetite is good. Suction D7C at ~ 16 weeks See HPI and No dysuria, gross hematuria, urinary frequency, urinary urgency, or incontinence. OBJECTIVE: ABDOMEN: Abdomen soft, non-tender, no hepatosplenomegaly. PELVIC: deferred per pt request ASSESSMENT/PLAN Uneventful postop course after Suction DANDC Anemia - CBC ordered Constipation - rec. Mirilax Path as anticipated PLAN: 1. Discussed results of pathology and implications with patient. 2. Postop restrictions reviewed. Efrain Montes De Oca MD [facility] 03-04-2023 Note HNO ID: [id number] Author: CHELI DILLARD MD Service: ? Author Type: Physician Type: Progress Notes Filed: 03/04/2023 11:16 Note Text: Patient was not on location when she checked in. Rescheduled due to being >15 min late at end of the day. Cheli Dillard MD [facility] 02-24-2023 Note HNO ID: [id number] Author: JUANY WHITNEY DO Service: Obstetrics Author Type: Resident Type: Progress Notes Filed: 02/23/2023 22:52 Note Text: After evaluation minimal, scant bleeding on pad. CBC returned with Hgb 9.8, decreased from 13.0 one month ago. Bedside ultrasound by Dr. Ludwig with thin endometrium, 0.9 cm. Recommend oral iron supplementation and follow up with regular OBGYN. She is likely experiencing expected bleeding after DANDC. Prior to discharge, the following Plan of care discussed with: Provider, RN, Patient Discharge Vital signs: .BP 133/77 Pulse 98 Temp 36.8 ?C (98.2 ?F) (Oral) Resp 17 Ht 154.9 cm (5' 1 ) Wt 83.5 kg (184 lb) LMP 10/29/2022 (Approximate) SpO2 97% BMI 34.77 kg/m? Lab Results: CBC: Recent Labs 02/23/231 WBC 6.23 RBC 3.27* HB 9.8* HCT 29.1* PLT 197 MCV 89.0 MCH 30.0 MPV 9.9 Follow-up: As scheduled with regular OBGYN Precautions: vaginal bleeding worsened, fever/chills New or adjusted home medications: Iron Other recommendations/instructions: heating pad, ibuprofen/tylenol Discussed with primary Ob Provider/Group: Dr. Margaret Whitney, [facility] 02-23-2023 Note HNO ID: [id number] Author: ARTURO LUDWIG MD Service: Obstetrics Author Type: Physician Type: Progress Notes Filed: 03/18/2023 09:37 Note Text: OBSTETRICS OB ED PROGRESS NOTE SERVICE DATE: February 23, 2023 SERVICE TIME: 9:08 PM Subjective Patient's stated reason for arrival: bleeding clots CHIEF COMPLAINT: Vaginal bleeding HISTORY OF THE PRESENT ILLNESS: The patient is a 28 year old female, . Patient is here complaining of vaginal bleeding and passage of clots. She is 5 days s/p dilation and curettage after a 13 week . Patient reports normal bleeding after the procedure until earlier today the amount picked up. She felt a spontaneous passage of a clot at ~1800 while grocery shopping, around the size of a golf ball. Shortly within the hour, she passed another similarly sized clot with smaller fragments and filled a single pad since then. She reports 7/10 abdominal cramping, worse in the past day. Last took ibuprofen at 1600. Pt denies fevers, chills, and abdominal pain. Denies dysuria, hematuria, back pain. PAST MEDICAL HISTORY Diagnosis Date Antepartum anemia complicating in first trimester 11/21/2020 Asthma childhood -no attacks since age 9 Diet controlled gestational diabetes mellitus (GDM) in third trimester 03/16/2021 Qylp-Xebcp-Qtpmjeq disease PAST SURGICAL HISTORY Procedure Laterality Date DANDC SUCTION 02/18/2023 16 week loss, 13 week size embryo TONSILLECTOMY AND ADENOIDECTOMY HX FAMILY HISTORY Problem Relation Age of Onset Hypertension Mother Heart Father Diabetes Father other (syncope) Sister other (benign tumor eye) Brother COPD Maternal Grandmother other (chf) Maternal Grandmother Ovarian cancer Paternal Grandmother Neuropathy Paternal Grandfather Diabetes Paternal Grandfather OB History T1 L1 SAB1 IAB0 Ectopic0 Multiple0 Live Births1 REVIEW OF SYSTEMS: PAIN ASSESSMENT: Negative for pain, history of chronic pain. GENERAL: Negative for fevers, chills RESPIRATORY: Negative for cough, shortness of breath CARDIOVASCULAR: POSITIVE for palpitations, Negative for chest pain GI: No nausea, vomiting, or diarrhea : No history of dysuria, frequency or incontinence SLOT OPERATIONS MANAGER: POSITIVE for vaginal bleeding, passage of clots MUSCULOSKELETAL: Negative for muscle aches, soreness Objective LAST VITALS: Pulse: 98 BP: 133/77 Resp: 17 Temp: 36.8 ?C (98.2 ?F) SpO2: 97 % Height: 154.9 cm (5' 1 ) Weight: 83.5 kg (184 lb) BMI: 34.77 PHYSICAL EXAM: General: WD, WN, NAD Heart: RR, S1, S2, no kylee, rub, or murmur appreciated Lungs: normal pulmonary exam and clear to auscultation Abdomen: soft, no masses, mildly tender to palpation in all quadrants Vagina: normal, pink, rugated, and normal vaginal tone, Cervix: smooth , nonfriable, and dilated to 1cm on bimanual exam. Scant blood noted in vaginal vault. No active bleeding on valsalva from cervix. No lacerations, wounds. CERVICAL EXAM: Dilation: 1 (02/23/232116 : Juany Whitney, ) MONITORING/ASSESSMENT: Not applicable Ultrasound: N/A LABS Diagnostic tests reviewed for today's visit: No new labs Assessment/Plan 28 year old s/p dilation and curettage on 02/18/23 after a missed with vaginal bleeding. Active Hospital Problems Diagnosis Date Noted Vaginal bleeding 02/23/2023 Overview Note: - Vaginal bleeding s/p uncomplicated DANDC on 02/18 after 13 week missed - Passage of 2 vaginal clots up to golf ball size and several clot fragments. - Vaginal bleeding saturating a single pad - Abdomen soft, mildly tender diffusely but no rebound or guarding - Cervical exam revealed ~10mL of red blood, dilation to 1cm, without friable cervix or erythema - Vitals WNL - CBC, type and screen pending - 30mg Toradol IM for pain management - Likely experiencing normal postoperative bleeding, will monitor pad counts in OB ED and reevaluate after 1 hour. Plan of care discussed with: Provider, RN, Patient. Dr. Ludwig TEACHING PHYSICIAN NOTE OF PERSONAL INVOLVEMENT IN CARE: I have personally seen and examined the patient and performed the medical decision-making components. I have reviewed the medical student documentation and verified the findings in the note as written. Any additions or changes are noted in bold/italics. Signature: Juany Whitney Date: 02/23/2023 Time: 10:05 PM I saw and evaluated the patient. Discussed with the resident and agree with resident's findings and plan as documented in the resident's note. Delayed entry - I personally saw/examined the patient on 02/23/23. Arturo Ludwig MD SIGNATURE: Gabriel Lainez PATIENT NAME: Cheli Osman DATE: February 23, 2023 TIME: 9:08 PM PAGER/CONTACT #: [facility] 02-21-2023 Note HNO ID: [id number] Author: CHELI DILLADR MD Service: ? Author Type: Physician Type: Progress Notes Filed: 02/21/2023 13:08 Note Text: Patient underwent suction dilation and curettage for 16-week loss, embryo measuring 13 weeks size. This was done at [facility] on 02/18/2023 without complications. She was discharged home with routine instructions and follow-up. No genetics were ordered on the products of conception because patient had NIPT done during the . Cheli Dillard MD [facility] 02-11-2023 Note HNO ID: [id number] Author: CHELI DILLARD MD Service: ? Author Type: Physician Type: Progress Notes Filed: 02/11/2023 15:48 Note Text: Cheli Osman is a 28 year old female who [...] L1 SAB0 IAB0 Ectopic0 Multiple0 Live Births1 Body Technician History LMP: 10/29/2022 (Approximate), Age at Menarche: Age at First : Age at Menopause: Body Technician History Comments: Sexual Activity: Yes; Male Contraception: No contraception data on record PAST MEDICAL HISTORY Diagnosis Date Antepartum anemia complicating in first trimester 11/21/2020 Asthma childhood -no attacks since age 9 Diet controlled gestational diabetes mellitus (GDM) in third trimester 03/16/2021 Pniq-Docdd-Iuwxjfz disease PAST SURGICAL HISTORY Procedure Laterality Date [...] external genitalia normal, normal Bartholin's glands, urethra, [place]'s glands, no vulvar lesions, no cervical lesions, good vaginal support, physiologic discharge present, normal appearing perineal body and perianal region BIMANUAL: no adnexal masses, non-tender, and uterus 12 weeks size, mobile, nontender. Transabdominal ultrasound was performed which revealed an embryo without cardiac activity either visually or via Doppler color-flow. [place]-rump length is consistent with approximately 7.2 cm [...] and products of conception. Cheli Dillard MD [facility] 02-06-2023 Hospital Discharg e instructions Patient Education [...] Boil returns when you are at home [phone] [employer] [address] [place] [address]. All rights reserved. This information is not intended as a substitute for professional medical care. Always follow your healthcare professional's instructions. Follow Up Care 02/06/2023 11:18:10 With:TOMMY CORTÉS DO Address: [address] [place] [phone] When:2-4 days [facility] 02-06-2023 Emergency department Discharge summary Discharge Instructions Thank you for allowing [facility] to assist you with your healthcare needs. The following is important discharge information regarding your hospital visit. Diagnosis from Today's Visit Boil What to Do Next Instructions from Your Care Team No qualifying data available. Post Acute Orders No qualifying data available. You Need to Schedule the Following Appointments Follow Up with TOMMY CORTÉS DO When Within 2-4 days Where: [address] [place] [phone] Allergies NKA Medications Please ask your primary [...] Boil returns when you are at home [phone] [employer] [address] [place] [address]. All rights reserved. This information is not intended as a substitute for professional medical care. Always follow your healthcare professional's instructions. Additional Information VACCINATE! IT SAVES LIVES! Members of the community who have not yet received the COVID-19 vaccine and would like to receive it can visit one of [facility] vaccine clinics. There are many vaccine clinic locations within the [facility]. For locations and available times, please visit [email or web address] It is important to note that some COVID mobile vaccine clinics are held outdoors and may be canceled in rainy or stormy conditions. To learn more about pediatric vaccinations (ages 5-11), we invite you to visit the [facility] webpage. [email or web address] [email or web address]-Gaztn-[email or web address]-Freq uctwut-Ygaaf-Vvbajoyrb.[email or web address] To learn more about the COVID-19 vaccine, we invite you to visit the CDC website for a list of frequently asked questions. https://www.cdc.gov/coronavirus/ 2019-ncov/vaccines/faq.html [facility] Access Instructions: Stay connected with your healthcare team and access your personal medical information anytime with the [facility] Patient Portal. If you would like a full copy of your medical records please contact the [facility] Medical Records Department Tuesday through Tuesday between 8a.m. and 4:30p.m. Please follow the directions below to access the portal: 1.Access the email account you provided upon registration to the [facility].2.Look for an invitation email from [facility].3.Open the email and access the invitation link: Accept Invitation to [facility]4.Fill in the required quiroz to create your account. Sign into [email or web address] with your username and password that you [...] you will allow to register on the [facility] Patient Portal for access to your information. You can also access the [facility] Patient Portal on the [employer]. Simply click on Health Records under Health Data and then click on the [employer] logo. HOW TO SAFELY DISPOSE OF PRESCRIPTION [...] Call your local pharmacy or go to [email or web address] Benefits [email or web address] to find one close to you.3.Make use of household items: Use cat litter or old coffee grounds to dispose medications if other options are not available. Mix your drugs with these household products, seal them in an airtight container and throw it into the garbage. Call [facility]: [phone] to be sure your drugs can be [...] reviewed and explained to me and I,CHELI OSMAN understand my current condition and have read and understand these discharge instructions. I have received a written copy of the plan/instructions. If I have questions, I am aware that I should contact my doctor. 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 Author Type: Nurse Practitioner Type: Progress Notes Filed: 2023 8:58 PM Note Text: Cheli Tim ThomasJacqui is a 28 year old female who [...] diabetes mellitus (GDM) in third trimester 03/16/2021 Kkwr-Kxdjz-Qhesraj disease ACTIVE PROBLEM LIST Nausea and Vomiting During History of Plxn-Iykgz-Ljcpaxc Disease History of Gestational Diabetes With Uncertain [...] if symptoms change or worsen. Denise Cotton APRN.[facility] 01-19-2023 Note HNO ID: [id number] Author: Harpreet Shankar MD Service: ? Author Type: Physician Type: Progress Notes Filed: 01/19/2023 2:20 PM Note Text: [facility] [address] [address] Date of Evaluation: 01/19/2023 Patient Name: Cheli Osman : 1995 Chief Complaint: Patient presents with: [facility] Care Nursing Intake: Nursing Notes: [place], [place] 01/19/2023 1:17 PM Signed Cheli Osman is a 27 year old female who presents for Establish Care Patient has no concerns, patient is 11weeks and 5 days [place] Subjective Ms. Osman is a 27 year old female who presents with the following complaint(s): HPI This patient [facility]. They are new to the office and new to me. She is 11 weeks , being followed by [employer]. This is her second . She is [...] ex- around childcare and visitation for her [id number]. 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 [facility] 01-19-2023 History of Presen t illness Narrative Images from the original note were not included. [facility] [address] [place] [address] Date of Evaluation: 01/19/2023 Patient Name: Cheli Osman : 1995 Chief Complaint: Patient presents with: Establish Care Nursing Intake: Nursing Notes: Grey Hall (Jose), JOSE 01/19/2023 1:17 PM Signed Cheli Dumont Jacqui is a 27 year old female who presents for Establish Care Patient has no concerns, patient is 11weeks and 5 days [place] Subjective Ms. Osman is a 27 year old female who presents with the following complaint(s): HPI This patient presents as a new patient to establish care. They are new to the office and new to me. She is 11 weeks , being followed by [employer]. This is her second . 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 She is in a relationship with the father of her current child, trying to work with her ex- around childcare and visitation for her [id number]-kbidp-lgz. 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 documented in this encounter [facility] 01-19-2023 Nurse Note Cheli Osman is a 27 year old female who presents for Establish Care Patient has no concerns, patient is 11weeks and 5 days Grey Hall MA documented in this encounter [facility] 01-11-2023 Miscellaneous Notes 1st risk assessment form submitted 01/11/23 Maikel Lea RN documented in this encounter [facility] 01-07-2023 History of Past i llness Narrative Problem Noted Date Diagnosed Date Resolved Date with uncertain li es in first trimester 01/07/2023 02/08/2023 Overview: POCUS consistent with LMP Supervision of normal 01/07/2023 02/11/2023 Overview: Declines genetic screening. Accepts carrier screening. 10 weeks gestation of 01/07/2023 02/08/2023 Overview: care and precautions reviewed. Heartburn during in first trimester 01/08/2002/08/2023 Overview: Reviewed Tums or Pepcid. Asthma during 01/07/2023/06/2023 Overview: No Hemabate with delivery. Forceps or vacuum extractor delivery 01/07/2023 02/11/2023 Overview: Pushed 6.5 hours. Vacuum delivery. Obesity affecting in first trimester 01/07/2023 02/11/2023 Overview: Pre BMI 35 Growth at 32 weeks Recommend low dose ASA at 12 weeks. History of gestational diabetes 07/10/2021 02/11/2023 Overview: HgbA1c ordered. Diet controlled with last . Diet controlled gestational diabetes mellitus (GDM) in third trimester 03/16/2021 07/10/2021 Abnormal glucose complicating 03/04/2021 03/16/2021 Overview: March 04, 2021 needs 3 hr. Cheli Dillard MD Antepartum anemia in third trimester 11/21/2020 07/10/2021 Encounter for supervision of other normal , first trimester 11/14/2020 07/10/2021 Nausea and vomiting during 11/13/2020 02/11/2023 Overview: Vitamin B6 and Unisom doses reviewed. To notify if prescription is needed. documented as of this encounter (statuses as of 03/19/2023) [facility]2023 History of Past illness Narrative* Problem Noted Date Diagnosed Date Resolved Date with uncertain li es in first trimester 01/07/2023 02/08/2023 Overview: POCUS consistent with LMP Supervision of normal 01/07/2023 02/11/2023 Overview: Declines genetic screening. Accepts carrier screening. 10 weeks gestation of 01/07/2023 02/08/2023 Overview: care and precautions reviewed. Heartburn during in first trimester 01/08/20 23 02/08/2023 Overview: Reviewed Tums or Pepcid. Asthma during 01/07/202306/2023 Overview: No Hemabate with delivery. Forceps or vacuum extractor delivery 01/07/2023 02/11/2023 Overview: Pushed 6.5 hours. Vacuum delivery. Obesity affecting in first trimester 01/07/2023 02/11/2023 Overview: Pre BMI 35 Growth at 32 weeks Recommend low dose ASA at 12 weeks. History of gestational diabetes 07/10/2021 02/11/2023 Overview: HgbA1c ordered. Diet controlled with last . Diet controlled gestational diabetes mellitus (GDM) in third trimester 03/16/2021 07/10/2021 Abnormal glucose complicating 03/04/2021 03/16/2021 Overview: March 04, 2021 needs 3 hr. Cheli Dillard MD Antepartum anemia in third trimester 11/21/2020 07/10/2021 Encounter for supervision of other normal , first trimester 11/14/2020 07/10/2021 Nausea and vomiting during 11/13/2020 02/11/2023 Overview: Vitamin B6 and Unisom doses reviewed. To notify if prescription is needed. documented as of this encounter (statuses as of 03/29/2023) [facility]12[facility] History of Past illness Narrative* Problem Noted Date Diagnosed Date Resolved Date with uncertain li es in first trimester 01/07/2023 02/08/2023 Overview: POCUS consistent with LMP Supervision of normal 01/07/2023 02/11/2023 Overview: Declines genetic screening. Accepts carrier screening. 10 weeks gestation of 01/07/2023 02/08/2023 Overview: care and precautions reviewed. Heartburn during in first trimester 01/08/20 23 02/08/2023 Overview: Reviewed Tums or Pepcid. Asthma during 01/07/202306/2023 Overview: No Hemabate with delivery. Forceps or vacuum extractor delivery 01/07/2023 02/11/2023 Overview: Pushed 6.5 hours. Vacuum delivery. Obesity affecting in first trimester 01/07/2023 02/11/2023 Overview: Pre BMI 35 Growth at 32 weeks Recommend low dose ASA at 12 weeks. History of gestational diabetes 07/10/2021 02/11/2023 Overview: HgbA1c ordered. Diet controlled with last . Diet controlled gestational diabetes mellitus (GDM) in third trimester 03/16/2021 07/10/2021 Abnormal glucose complicating 03/04/2021 03/16/2021 Overview: March 04, 2021 needs 3 hr. Cheli Dillard MD Antepartum anemia in third trimester 11/21/2020 07/10/2021 Encounter for supervision of other normal , first trimester 11/14/2020 07/10/2021 Nausea and vomiting during 11/13/2020 02/11/2023 Overview: Vitamin B6 and Unisom doses reviewed. To notify if prescription is needed. documented as of this encounter (statuses as of 04/03/2023) [facility]12-01-2023 Instructions* Patient Instructions* Brenna Altamirano APRN.PROFESSOR OF PATHOLOGY - 01/07/2023 8:37 AM EST Please select the following link to access the [facility] Your Guide to a Healthy . [email or web address] MORNING SICKNESS IN by Adrianna Marshall M.D. for [employer] As you may already know, morning sickness can often be more appropriately called evening sickness or hotyi-iawygi-vx-the-day sickness. While there are the daryl few, most women (50-90%) experience some degree of nausea, some have vomiting, and a few develop a severe form of vomiting duringpregnancy called hyperemesis gravidarum. What causes the nausea and vomiting of ? We can't explain why some people feel fine and others are green for months. Even the same woman mayfeel vastly different in each . There is some relationship between nausea and the level ofthe hormone hCG. In twin pregnancies, and in [...] weeks can go by slowly but most momsdo feel tremendously better by the middle of [...] prevent nausea from starting. vitamins and nausea: Pre- vitamins can sometimes worsen nausea in . While folate is necessary, especially early in the , it comes as a smaller pill that many people find more tolerable than the complete vitamin pill. Ask your practitioner if it is okay to temporarilyreplace vitamins and iron with just a folate [...] medication, Doxylamine, is currently marketed as an sykt-wpp-afrsbyp sleeping pill. Ask your practitioner if creating a vitamin B6/Doxylaminecombination with fipk-ily-gzbbbis medications would be safe for you. Prescription medications like Compazine and Phenergan can be used if the benefits outweigh possiblerisks, but these have not been clearly shown [...] able. If you are unable to keep anyt henrietta down, or if you notice potential signs of dehydration such as lightheadedness, or concentratedand/or infrequent urination, call your practitioner. Some women need brief hospital admission for intravenous fluids and anti-nausea medications if their condition becomes severe. This severe form ofnausea and vomiting is called Hyperemesis Gravidarum. As [...] as Phenergan, Compazine, Reglan documented in this encounterUniversity Hospitals [facility] Center12-01-2023 NoteHNO ID: [id number] Author: Brenna Altamirano APRN.PROFESSOR OF PATHOLOGY Service: ? 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 Discussed aneuploidy and carrier screening. Regarding aneuploidy [...] May consider in future. Reviewed midwifery and clothes drier assembler services that are available. ACTIVE PROBLEM LIST [...] notify if prescription is needed. History of Aaqk-Lyfor-Dbbwlbd Disease - 11/13/2020 Comment: 11/13/2020atient states she has Zgim-Ypnly-Encumyg disease. TKRN Follow up in 4 weeks or sooner prn. Brenna Altamirano APRN.PROFESSOR OF PATHOLOGY documented in this encounterUniversity Hospitals [facility] Center11-25-2023 NoteHNO ID: [id number] Author: Arleen Brown APRN.PROFESSOR OF PATHOLOGY Service: ? Author Type: Nurse Practitioner Type: Progress Notes Filed: 01/01/2023 12:24 PM Note Text: HPI: Cheli Osman is a 27 year old female who [...] diabetes mellitus (GDM) in third trimester 03/16/2021 Xhsq-Prlwq-Kltwwqn disease ACTIVE PROBLEM LIST History of Saup-Wcmav-Kfbtifi Disease History of Gestational Diabetes Current Outpatient [...] , symptom management is limited to Zyrtec, qrha-lfy-dyyxnkf Monistat, rest, hydrate. Patient instructed to follow-up with her CLOTHES DRIER ASSEMBLER related to vaginal discharge BARBARA. Follow-up with PCP for any additional concerns. Patient in agreement to the above plan and discharged in stable condition. Arleen Brown APRN.PROFESSOR OF PATHOLOGY (more content not included)...[facility] 11-26-2022 History of Present illness Narrative* Linh Zimmerman MD - 11/26/2022 2:25 PM EDT Chief Procurement Officer offered: Patient declines. Bibiana is a 27 [...] L1 SAB0 IAB0 Ectopic0 Multiple0 Live Births1 Body Technician History LMP: 10/29/2022 (Approximate), Having periods Age at Menarche: Age at First : Age at Menopause: Body Technician History Comments: Sexual Activity: Yes; Male Contraception: No contraception data on record PAST MEDICAL HISTORY Diagnosis Date Antepartum anemia complicating in first trimester 11/21/2020 Asthma childhood -no attacks since age 9 Diet controlled gestational diabetes mellitus (GDM) in third trimester 03/16/2021 Tcnw-Ovthe-Nbisubs disease PAST SURGICAL HISTORY Procedure Laterality Date [...] external genitalia normal, normal Bartholin's glands, urethra, [place]'s glands, no vulvar lesions, no cervical lesions, [...] needed Linh Siddiqui MD documented in this encounterUniversity Hospitals [facility]09-29-2023 Note. MICRO - Microbiology PROCEDURE: Urine Culture [*1] [...] Locations *1: This test was performed at: [address], [address]- , [facility] ([place])11-02-2022 Hospital Discharge instructions Patient Education 11/02/2022 18:09:11 Flank Pain, Uncertain Cause Flank Pain, Uncertain Cause The flank is the area between your upper abdomen and your back. Pain there is often caused by a problem with your kidneys. It might be a kidney infection or a kidney stone. Other causes of flank paininclude spinal arthritis, a pinched nerve from a back injury, or a back muscle strain or spasm. The cause of your flank pain is not certain. You may need other tests. Home care Follow these tips when caring for yourself at home: You may use acetaminophen or ibuprofen to control pain, unless your health care provider prescribedanother medicine. If you have chronic liver or [...] You might find that alternating ice and heatworks well. Use the method that feels the [...] worse Numbness or weakness in a leg 6395-5781 [employer] [address] [place] [address]. All rights reserved. This information is not intended as a substitute for professional medical care. Always follow yourhealthcare professional's instructions. 11/02/2022 18:09:03 Bladder Infection, Female (Adult) Bladder Infection, Female (Adult) Urine is normally doesn't have any bacteria in it. But bacteria can get into the urinary tract fromthe skin around the rectum. Or they can [...] bladder. This causes many of the symptoms. Themost common symptoms of a bladder infection are: [...] into the urine and travel up to thebladder, causing inflammation and infection. This usually happens [...] better. It is important to finish them tomake sure the infection has cleared. You can [...] needs to be changed. If directed, you cancall to find out the results. If X-rays [...] swelling in the outer vaginal area (labia) 5488-4295 [employer] [address] [place] [address], [place] [address]. All rights reserved. This information is not intended as a substitute for professional medical care. Always follow yourhealthcare professional's instructions. Follow Up Care 11/02/2022 15:54:19 With:YI BASS Address: [address] [place] [address] [place] [address] [phone] Business (1) When:2-4 days Comments:Return to ED if symptoms worsen With:Call AMB New Pt. Refferral [phone] Address:Unknown When:2-4 days [facility]23 Note Discharge Instructions Thank you for allowing Debbie to assist you with your healthcare needs. The following is importantdischarge information regarding your hospital visit. Diagnosis from Today's Visit Flank pain Urinary tract infection What to Do Next Instructions from Your Care Team No qualifying data available. Post Acute Orders No qualifying data available. You Need to Schedule the Following Appointments Follow Up with YI BASS When Within 2-4 days Why: Return to ED if symptoms worsen Where: [address] [facility] [place] [address]- [phone] Business (1) Follow Up with Call ROSA Valiente Pt. Refferral [phone] When Within 2-4 days Allergies NKA Medications Please ask your primary doctor or pharmacist before taking any other medication not listed, including over the counter drugs, herbal medications, vitamins and or supplements as they may interact withyour home medications. What How Much When Why [...] a kidney stone. Other causes of flank paininclude spinal arthritis, a pinched nerve from a back injury, or a back muscle strain or spasm. The cause of your flank pain is not certain. You may need other tests. Home care Follow these tips when caring for yourself at home: You may use acetaminophen or ibuprofen to control pain, unless your health care provider prescribedanother medicine. If you have chronic liver or [...] You might find that alternating ice and heatworks well. Use the method that feels the [...] worse Numbness or weakness in a leg 3582-2497 [employer] [address] [place], [place] [id number]. All rights reserved. This information is not intended as a substitute for professional medical care. Always follow yourhealthcare professional's instructions. Bladder Infection, Female (Adult) Urine is normally doesn't have any bacteria in it. But bacteria can get into the urinary tract fromthe skin around the rectum. Or they can [...] bladder. This causes many of the symptoms. Themost common symptoms of a bladder infection are: [...] into the urine and travel up to thebladder, causing inflammation and infection. This usually happens [...] better. It is important to finish them tomake sure the infection has cleared. You can [...] needs to be changed. If directed, you cancall to find out the results. If X-rays [...] swelling in the outer vaginal area (labia) [phone] [employer] [address] [place] [address]. All rights reserved. This information is not intended as a substitute for professional medical care. Always follow yourhealthcare professional's instructions. Additional Information VACCINATE! IT SAVES LIVES! Members of the community who have not yet received the COVID-19 vaccine and would like to receive it can visit one of [facility] vaccine clinics. There are many vaccine clinic locations within the [facility]. For locations and available times, please visit [email or web address] It is important to note that some COVID mobile vaccine clinics are held outdoors and may be canceled in rainy or stormy conditions. To learn more about pediatric vaccinations (ages 5-11), we invite you to visit the [facility] webpage. [email or web address]/[email or web address] [email or web address] learn more about the COVID-19 vaccine, we invite you to visit the CDC website for a list of frequently asked questions. https://www.cdc.gov/coronavirus/2019-ncov/vaccines/faq.html [employer] Patient Portal Access Instructions: Stay connected with your healthcare team and access your personal medical information anytime with the [employer] Patient Portal. If you would like a full copy of your medical records please contact the [facility] Medical Records Department Tuesday through Tuesday between 8a.m. and 4:30p.m. Please follow the directions below to access the portal: 1.Access the email account you provided upon registration to the [facility].2.Look for an invitation email from [facility].3.Open the email and access the invitation link: Accept Invitation to [facility]4.Fill in the required quiroz to create your account. Sign into [email or web address] with your username and password that you [...] you will allow to register on the [employer] Patient Portal for access to your information. You can also access the [employer] Patient Portal on the [employer]. Simply click on Health Records under [employer] and then click on the [employer] logo. HOW TO SAFELY DISPOSE OF PRESCRIPTION MEDICATIONS Please use one of the following methods to safely dispose of your unused medications. 1.Use a drug disposal kit: the drug disposal pouch allows you to safely discard your old and unuseddrugs. Ask your nurse to give you one when you are discharged.2.Visit a local take-back location: Many local pharmacies and police departments have programs that collect old and unwanted prescriptiondrugs. Call your local pharmacy or go to http://bit.Health Benefits Direct/5R4Ep1u to find one close to you.3.Make use of household items: Use cat litter or old coffee grounds to dispose medications if other options arenot available. Mix your drugs with these household products, seal them in an airtight container andthrow it into the garbage. Call [facility]: [phone] to be sure your drugs can be [...] drowsiness, such as benzodiazepines, also known as benzos,including diazepam and alprazolam, muscle relaxants or sleep aids. Never sell or share prescriptionopioids. This is illegal. Store opioids in a [...] reviewed and explained to me and I,CHELI OSMAN understand my current condition and have read and understand these discharge instructions. I have received a written copy of the plan/instructions. If I have questions, I am aware that I should contact my doctor. 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 Signature: Date/Time: Relationship to Patient: Witness Name/Signature: Date/Time: [facility]09-26-2023 Note ORIGINAL EXAMINATION: CT OF THE ABDOMEN [...] Sign Date: 11/02/2022 5:57:37 PM Ordering [facility] + Plan note Diagnostic Tests Pending * Urine Culture 11/02/22 [facility] 08-07-2023 Instructions* Patient Instructions* Augusto Adames MD - 09/13/2022 3:49 PM EDT Gargle, lozenges OTC med as needed Recheck if any change F/u PCP for further ration and care explained details documented in this encounterUniversity Hospitals [facility]point [facility] Center08-07-2023 History of Present illness Narrative* Augusto Adames MD - 09/13/2022 3:42 PM EDT Cheli Osman is a 27 year old FEMALE who [...] diabetes mellitus (GDM) in third trimester 03/16/2021 Yytf-Sbcch-Gaqblcu disease ACTIVE PROBLEM LIST History of Iyxp-Vzmoa-Huqmyxc Disease History of Gestational Diabetes Current Outpatient [...] care explained details Patient understand and agreed Augusto Adames MD documented in this encounterUniversity Hospitals [facility] Center06-05-2023 History of Present illness Narrative* Michael Hernandez PA-C - 07/12/2022 2:57 PM EDT HPI: Cheli Osman is a 27 year old female who presents with Vaginal Discharge (White vaginal discharge vaginal itch started last night . Patient is on antibiotics.). PAST MEDICAL HISTORY Diagnosis Date Antepartum anemia complicating in first trimester 11/21/2020 Asthma childhood -no attacks since age 9 Diet controlled gestational diabetes mellitus (GDM) in third trimester 03/16/2021 Ivko-Vofeg-Qtfzwvq disease ACTIVE PROBLEM LIST History of Nhbz-Fsjjc-Zgerkws Disease History of Gestational Diabetes Current Outpatient [...] history. Put on Diflucan with a repeat doseto use after she finishes the antibiotic. Michael Hernandez PA-C This note was generated with voice recognition software and may contain errors, including spelling,grammar, syntax and misrecognition of what was dictated, that are not fully corrected. documented in this encounterUniversity Hospitals Tripoint Medical Center05-30-2023 Miscellaneous Notes* Telephone Encounter - Letitia Wu LPN - 07/06/2022 7:03 PM EDT Patient aware of note and states she will pick it up tomorrow. Patient voices no other concerns at this time. Letitia Wu LPN * Telephone Encounter - Letitia Wu LPN - 07/06/2022 6:31 PM EDT Patient called in stating that her note says that she can be off today but she also needs it to be for her to be off tomorrow for work. Patient is asking if there is a way to have a note so she can be off tomorrow as well since she hasto be fever free for 24 hours for her work. Letitia Wu LPN documented in this encounterUniversity Hospitals Tripoint Medical Center05-30-2023 Instructions* Patient Instructions* Augusto Adames MD - 07/06/2022 9:18 AM EDT Gargle, lozenges OTC med as needed Recheck if any change F/u PCP explained details documented in this encounterUniversity Hospitals Tripoint Medical Center05-30-2023 History of Present illness Narrative* Augusto Adames MD - 07/06/2022 9:11 AM EDT Cheli Osman is a 27 year old FEMALE who [...] diabetes mellitus (GDM) in third trimester 03/16/2021 Qdxi-Uudgf-Ftfrccx disease ACTIVE PROBLEM LIST History of Lzdb-Fowfa-Swzzdho Disease History of Gestational Diabetes Current Outpatient [...] if any change F/u PCP explained details Augusto Adames MD documented in this encounterUniversity Hospitals Tripoint Medical Center11-20-2022 History of Present illness Narrative* Demetrius Bravo PA-C - 12/27/2021 10:55 AM EST Cheli Jordan is a 26 year old female who presents with Cough (2 days) Patient presents urgent care with chief complaint of cough congestion fevers and chills. Patient states that this been going on for the past couple of days now. 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 Also has her 6-month-old [...] for cough possible. Denies any chest pain orshortness of breath, severe headache or visual changes. Cough Associated symptoms include chills. PAST MEDICAL HISTORY Diagnosis Date Antepartum anemia complicating in first trimester 11/21/2020 Asthma childhood -no attacks since age 9 Diet controlled gestational diabetes mellitus (GDM) in third trimester 03/16/2021 Lgcs-Exine-Uezozio disease ACTIVE PROBLEM LIST History of Dlqc-Xgoww-Lmadeoh Disease History of Gestational Diabetes Current Outpatient [...] she either has influenza and RSV. Again, Ioffered testing to tease this out but patient denied wanting or needing this today. Advised on plenty fluids, rest, kluo-shw-xptjhfl pain relievers as well as fever reducers. I did prescribe something help her with the cough. Advised to follow-up with her primary care for continuation of symptoms or no better within 7 to 10 days. She voiced understanding was agreeable with this plan. Demetrius Bravo documented in this encounterUniversity Hospitals Tripoint Medical Center10-24-2022 History of Present illness Narrative* Deana Navarro, - 11/30/2021 9:18 PM EDT Cheli Jordan is a 26 year old FEMALE who presents with Sore Throat (Headache, cough, loss of voice x 2 days) HPI PAST MEDICAL HISTORY Diagnosis Date Antepartum anemia complicating in first trimester 11/21/2020 Asthma childhood -no attacks since age 9 Diet controlled gestational diabetes mellitus (GDM) in third trimester 03/16/2021 Eqos-Pzcga-Gtbayyh disease ACTIVE PROBLEM LIST History of Whif-Mtfxh-Mzyxpnn Disease History of Gestational Diabetes Current Outpatient [...] MG CAPSULE Deana Navarro documented in this encounterUniversity Hospitals Tripoint Medical Center06-03-2022 Instructions* Patient Instructions* Marcia Beckett APRN.[facility] - 07/10/2021 11:32 AM EDT Oral Contraceptives: [...] reversible control being used today. Millions of womenrely on oral contraceptives as their control method. It is important to have an examination by your physician to determine if the pill is safe for you. There are several advantages associated with the pill: it is 97-98% effective; may improve acne; periods are more regular and less painful; there is less iron deficiency anemia in pill users. ferry terminal supervisor use is associated with a decreased incidence of ovarian and uterine cancer. There is also no evidence that the pill increases the incidenceof any cancer. How Oral Contraceptives Work Oral contraceptives come in two varieties. One is the combination pill which contains both estrogenand progesterone. Combination pills are considered 98-99% effective [...] effective than the combination pill in preventing preg cynthia. Oral contraceptives prevent ovulation (release of an egg from the ovary) by suppressing the pituitary gland s action. The pill does NOT prevent sexually transmitted disease. Obtaining a Prescription It is important to see your doctor before starting oral contraceptives so that you can have a full medical history taken and a physical examination given. Certain medical conditions may make the pillinappropriate for you, therefore it is very important to be honest and as complete as possible withthe information you share with your doctor. The [...] and mild fluid retention. There is no assisted weight gain with the use of the [...] see if there is any physical cause andpossibly change to another control pill. Problems: 1. [...] the pill for the rest of the month.Or you can stop the pill and start [...] for necessary health information. documented in this encounterUniversity [facility]als [facility] History of Present illness Narrative* Marcia Beckett APRN.CNM - 07/10/2021 10:46 AM EDT VISIT Cheli Jordan is a 26 year old year old here for visit. Delivery Summary: Delivery information: Delivery date 05/28/2021 Delivery type VAVD Delivering clinician [place]: Name Candi Gender F ROS/ Recovery: Feeding: Breast feeding problems: Seeing quality compliance consultant Menses since delivery: bloody discharge Menstrual pattern prior to : Regular periods [place] since delivery: Not resumed Depression: denies symptoms [...] diabetes mellitus (GDM) in third trimester 03/16/2021 Smug-Hgmdn-Apcoaqk disease PAST SURGICAL HISTORY Procedure Laterality Date [...] external genitalia normal, normal Bartholin's glands, urethra, [place]'s glands, no vulvar lesions, no cervical lesions, [...] PRN Marcia Beckett APRN.CNM documented in this encounterUniversity Hospitals [facility]06-03-2022 Miscellaneous Notes* Telephone Encounter - Summer Banegas RN - 07/10/2021 9:16 AM EDT Patient notified and will be here on time or earlier. Summer Banegas RN * Telephone Encounter - Marcia Beckett APRN.CNM - 07/10/2021 9:12 AM EDT I could see her at 11 but if late I won't be able to fit her in. Thank you, Marcia Beckett APRN.CNM * Telephone Encounter - Summer Banegas RN - 07/10/2021 8:54 AM EDT Patient is scheduled to see ROSETTA today at 9:30 AM for 6 week PP. Overslept and she lives 45 min away.Aware that ROSETTA does not have a later opening today. Patient states she is okay to see BLANKET WINDER HELPER because sheis returning back to work on Tuesday. ROSETTA- are you OK with seeing patient later in the day or would you like us to check if BLANKET WINDER HELPER are OK to add to their schedule? Summer Banegas RN documented in this encounterUniversity Hospitals [facility]04-12-2022 Miscellaneous Notes* Quick Notes - Cheli Dillard MD - 05/19/2021 11:34 AM EDT RR- VB No. LOF No. CTXS No. Movement: present. Other c/o: No. Some low back pain. No KNOX or visual changes. Medication list reviewed. Physical Exam See Flow Sheet Abd: soft, nontender, gravid Ext: edema: 2+ A/P 39w0d Estimated Date of Delivery: 05/26/21 kick counts GDMA1- bs log reviewed, excellent control. R/B?A to induction at 39-40 weeks reviewed, patient questions answered. If no other indication other than GDMA1 for induction,d esires expectant management w/ surveillance NST next week f/u weekly or prn. refill on colace for constipation Cheli Dillard M.D. documented in this encounterUniversity Hospitals Tri[facility] Center04-12-2022 Instructions* Patient Instructions* Heather Hanson Ma - 05/19/2021 11:19 AM EDT SEQUENTIAL SCREENINGS [facility] offers sequential screenings for women who are interested in screenings for chromosomal abnormalities and certain defects during a . The sequential screen combinesultrasound and blood tests to determine the risk [...] this testing. It will require an appointment withour glass technician/installer. This is not an ultrasound performed by [...] the above symptoms, contact our office at [phone] and ask to speak with anurse. After hours, you can call doctors registry at [phone] OR call [facility] at [phone] ask to have the doctor bariatric surgeon paged. If you consider this an emergency, dial [phone] or go to your nearest emergency department. NEED HELP? Are you dealing with a violent or abusive relationship? Are you a victim of rape or sexual assult? Call [facility] ([place]) 24 hour Crisis Hotline: 295.885.8363 or 522-457-6182. MANUAL Your Guide to a Healthy manual is now on-line. 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 MC message sent. Pt identified by name and : NO Outreach Outcome/Action Unable to reach patient: Left message MyChart message sent Reason for Outreach [place] Payer: No coverage found. Taryn Barber MA May 12, 2021 11:20 AM documented in this encounterUniversity Hospitals [facility] Center04-05-2022 Miscellaneous Notes* Quick Notes - Marcia Beckett APRN.CNM - 05/12/2021 10:49 AM EDT ROSETTA-S: Cheli Jordan is a 26 year old female who presents at 38w0d with BRODERICK: 05/26/2021, by Last Menstrual Period for a routine visit. Good FM. Denies headache, visual changes, chest pain, shortness of breath, vaginal bleeding, leakage of fluid, or dysuria. Feeling well, no complaints. Was seen last visit with [place] [facility] Physics Teacher. Forgot BS log but stated almost all [...] day. To send log on 05/15/21 via [employer] to verify BS have been wnl. Discussed risks of untreated GDM. Patient voiced understanding. 4) Growth US next visit. Marcia Beckett APRN.CNM documented in this encounterUniversity Hospitals Tripoint [facility] Center04-05-2022 Instructions* Patient Instructions* Alejandra Copeland MA - 05/12/2021 10:19 AM [...] cervix begins to dilate (open) and efface (thin)towards the end of a woman's . Inducing [...] may also be accomplished using mechanical methods suchas a Steinberg catheter bulb. Most women, including those whose cervix is favorable, will also require an intravenous medication (oxytocin), which stimulates the uterus to contract; uterine contractions further stimulate cervicaldilation and effacement. If induction of labor does not completely dilate and efface the cervix, orif complications develop that require the baby to [...] the above symptoms, contact our office at [phone] and ask to speak with anurse. After hours, you can call doctors registry at [phone] OR call [facility] at [phone] ask to have the doctor bariatric surgeon paged. If you consider this an emergency, dial 1-2-8 or go to your nearest emergency department. NEED HELP? Are you dealing with a violent or abusive relationship? Are you a victim of rape or sexual assult? Call [facility] ([place]) 24 hour Crisis Hotline: 334.129.8976 or 911-430-6674. MANUAL Your Guide to a Healthy manual is now on-line. Visit [email or web address] to download your free copy documented in this encounterUniversity Hospitals Tripoint [facility] Center03-28-2022 Miscellaneous Notes* Quick Notes - Samy Delaney MD - 05/04/2021 2:17 PM EDT BPP 09/14, cory 12 GBS done Reminded pt to bring her BS next appt Plans to del at [facility] EFW due again at 38 wks Samy Delaney MD, MD documented in this encounterUniversity Hospitals Tripoint [facility] Center03-28-2022 Nurse Note* Lien Yee LPN - 05/04/2021 2:13 PM EDT Movement? Active baby Vaginal Bleeding: NO Vaginal fluid leakage of fluid: NO Contractions: no contractions Edema: Trace Lien Yee LPN documented in this encounterUniversity Hospitals [facility] Center02-07-2022 History of Past illness Narrative* Problem Noted [...] of this encounter (statuses as of 07/10/2021) [facility] History of Past illness Narrative* Problem Noted [...] of this encounter (statuses as of 07/10/2021) [facility] History of Past illness Narrative* Problem Noted [...] of this encounter (statuses as of 12/01/2021) [facility] History of Past illness Narrative* Problem Noted [...] of this encounter (statuses as of 12/27/2021) [facility] History of Past illness Narrative* Problem Noted [...] of this encounter (statuses as of 07/06/2022) [facility] History of Past illness Narrative* Problem Noted Date Resolved Date Diet controlled gestational diabetes mellitus (GDM) in third trimester 03/16/2021 07/10/2021 Abnormal glucose complicating 03/04/19 22 03/16/2021 Overview: [...] of this encounter (statuses as of 07/07/2022) [facility] History of Past illness Narrative* Problem Noted [...] of this encounter (statuses as of 07/13/2022) [facility] History of Past illness Narrative* Problem Noted [...] of this encounter (statuses as of 09/14/2022) [facility] History of Past illness Narrative* Problem Noted [...] of this encounter (statuses as of 11/26/2022) [facility] History of Past illness Narrative* Problem Noted [...] of this encounter (statuses as of 01/07/2023) [facility] History of Past illness Narrative* Problem Noted [...] of this encounter (statuses as of 01/11/2023) [facility] History of Past illness Narrative* Problem Noted [...] of this encounter (statuses as of 01/20/2023) [facility] History of Past illness Narrative* Problem Noted Date Resolved Date Abnormal glucose complicating 03/04/1903/16/2021 Overview: March 04, 2021 needs 3 hr. Cheli Dillard MD documented as of this encounter (statuses as of 05/04/2021) [address]26-2022 History of Past illness Narrative* Problem Noted Date Resolved Date Abnormal glucose complicating 03/04/19 22 03/16/2021 Overview: March 04, 2021 needs 3 hr. Cheli Dillard MD documented as of this encounter (statuses as of 05/04/2021) [address]26-2022 History of Past illness Narrative* Problem Noted Date Resolved Date Abnormal glucose complicating 03/04/19 22 03/16/2021 Overview: March 04, 2021 needs 3 hr. Cheli Dillard MD documented as of this encounter (statuses as of 05/12/2021) [address]26-2022 History of Past illness Narrative* Problem Noted Date Resolved Date Abnormal glucose complicating 03/04/19 22 03/16/2021 Overview: March 04, 2021 needs 3 hr. Cheli Dillard MD documented as of this encounter (statuses as of 05/14/2021) [address]26-2022 History of Past illness Narrative* Problem Noted Date Resolved Date Abnormal glucose complicating 03/04/19 22 03/16/2021 Overview: March 04, 2021 needs 3 hr. Cheli Dillard MD documented as of this encounter (statuses as of 05/15/2021) [address]26-2022 History of Past illness Narrative* Problem Noted Date Resolved Date Abnormal glucose complicating 03/04/19 22 03/16/2021 Overview: March 04, 2021 needs 3 hr. Cheli Dillard MD documented as of this encounter (statuses as of 05/19/2021) [address]26-2022 History of Past illness Narrative* Problem Noted Date Resolved Date Abnormal glucose complicating 03/04/19 22 03/16/2021 Overview: March 04, 2021 needs 3 hr. Cheli Dillard MD documented as of this encounter (statuses as of 05/19/2021) [facility] of Past illness Narrative* Problem Noted Date Resolved Date Abnormal glucose complicating 03/04/19 22 03/16/2021 Overview: March 04, 2021 needs 3 hr. Cheli Dillard MD documented as of this encounter (statuses as of 06/29/2021) [facility] note* Diagnosis Gestational diabetes mellitus, class A1- Primary Abnormal maternal glucose tolerance, complicating , childbirth, or the puerperium, unspecified as to episode of care 36 weeks gestation of state, incidental documented in this encounter [facility]* Diagnosis Malposition of fetus, single or unspecified fetus- Primary documented in this encounter [facility] note* Diagnosis 38 weeks gestation of - Primary state, incidental GDM (gestational diabetes mellitus), class A1 Abnormal maternal glucose tolerance, complicating , childbirth, or the puerperium, unspecified as to episode of care documented in this encounter [facility] note* Diagnosis Diet controlled gestational diabetes mellitus (GDM) in third trimester- Primary 39 weeks gestation of state, incidental [facility] this encounter [facility]* Diagnosis 39 weeks gestation of - Primary state, incidental GDM (gestational diabetes mellitus), class A1 Abnormal maternal glucose tolerance, complicating , childbirth, or the puerperium, unspecified as to episode of care Constipation, unspecified constipation type documented in this encounter [facility] note* Diagnosis care and examination- Primary Routine follow-up Encounter for initial prescription of contraceptive pills General counseling for prescription of oral contraceptives History of gestational diabetes mellitus Personal history of gestational diabetes History of gestational diabetes Personal history of gestational diabetes documented in this encounter [facility] note* Diagnosis Laryngitis- Primary Acute laryngitis, without mention of obstruction Sinobronchitis Unspecified sinusitis (chronic) documented in this encounter [facility] note* Diagnosis Viral illness- Primary Unspecified viral infection, in conditions classified elsewhere and of unspecified site documented in this encounter [facility] note* Diagnosis Sore throat- Primary Acute pharyngitis Strep pharyngitis Streptococcal sore throat documented in this encounter [facility] note* Diagnosis Vaginal yeast infection- Primary Candidiasis of vulva and vagina documented in this encounter [facility] note* Diagnosis Sore throat- Primary Acute pharyngitis Viral pharyngitis Acute pharyngitis documented in this encounter [facility] note* Diagnosis Encounter for gynecological examination (general) (routine) without abnormal findings- Primary documented in this encounter [facility] note* Diagnosis with uncertain dates in [...] unspecified obesity type documented in this encounter [facility] note* Diagnosis Encounter to establish care with new doctor- Primary Other reasons for seeking consultation Depression screening Screening for depression History of gestational diabetes Personal history of gestational diabetes Numbness of foot Disturbance of skin sensation documented in this encounter [facility] note* Diagnosis URI with cough and congestion- Primary documented in this encounter [facility] note* Diagnosis Dermatitis- Primary Contact dermatitis and other eczema, due to unspecified cause documented in this encounter [facility] note* Diagnosis Sinobronchitis- Primary Unspecified sinusitis (chronic) documented in this encounter [facility] note* Diagnosis with uncertain dates in first trimester- Primary History of gestational diabetes mellitus Personal history of gestational diabetes Forceps or vacuum extractor delivery Forceps or vacuum extractor delivery without mention of indication, unspecified as to episode of care Screening for cervical cancer Screening for malignant neoplasm of the cervix Screening for human papillomavirus Special screening examination for human papillomavirus (HPV) Vaginal bleeding Other specified noninflammatory disorder of vagina History of Jvgi-Ixohi-Zkidhdu disease Personal history of other musculoskeletal disorders 8 weeks gestation of state, incidental Obesity affecting in first trimester, unspecified obesity type Encounter for supervision of high risk in first trimester, antepartum * Assessment & Plan Note - Melony Pineda APRN.CNM - 06/06/2023 10:11 AM EDT Associated Problem(s): Encounter for supervision of high risk in first trimester, antepartum Care Checklist Vaccines: [] Flu vaccine [x] declined [] RSV vaccine 32 0/7 - 36 6/7 (Oct - Mar) [x] declined [] COVID vaccine [x] declined [] TDaP 27-36 [] declined First trimester: [] Dating US [x] 1st tri labs [x] Pap smear [] Carrier screening [x] declined [] NIPT screening [x] declined [x] First trimester anatomy scan [] declined [x] ASA ppx indicated [] not indicated [x] M Power Consult [] not indicated [] declined Second trimester: [] AFP [] declined [] Anatomy scan [] Mode of Delivery - [] Feeding - [] Pump ordered [] Diabetes screen [] CBC, RPR Third trimester (28-30 weeks): [] Consent [] Contraception - [] Card Painter Third trimester (36-40 weeks): [] GBS [] Presentation - [] Scheduled [] yes - Hibiclens, pre-op instructions, CBC, T&S ordered [] no [] H&P * Assessment & Plan Note - Melony Pineda APRN.CNM - 06/06/2023 10:07 AM EDT Associated Problem(s): Forceps or vacuum extractor delivery 06/06/23- Op report reviewed. Vacuum applied x 3 with no pop off. Vacuum removed with . Second degree laceration. Melony Pineda APRN.CNM * Assessment & Plan Note - Melony Pineda APRN.CNM - 06/06/2023 10:05 AM EDT Associated Problem(s): Vaginal bleeding 06/06/23- Occasional spotting that is dark brown/dark red in color. Denies any cramping. Melony Pineda APRN.CNM [facility]* Diagnosis Non-recurrent acute serous otitis media of both ears- Primary 9 weeks gestation of state, incidental Pharyngitis, unspecified etiology documented in this encounter [facility] note* Diagnosis 12 weeks gestation of - Primary state, incidental Obesity affecting in first trimester, unspecified obesity type Encounter for supervision of high risk in first trimester, antepartum Dichorionic diamniotic twin in first trimester Twin , antepartum documented in this encounter [facility] note* Diagnosis Dichorionic diamniotic twin in first trimester- Primary Twin , antepartum 13 weeks gestation of state, incidental Obesity affecting in first trimester, unspecified obesity type Encounter for nuchal translucency testing Other specified screening [facility]* Diagnosis 16 weeks gestation of - Primary state, incidental [facility]* Diagnosis 18 weeks gestation of - Primary state, incidental Dichorionic diamniotic twin in first trimester Twin , antepartum Obesity affecting in first trimester, unspecified obesity type Encounter for supervision of high risk in first trimester, antepartum Placenta previa antepartum Placenta previa without hemorrhage, antepartum [facility]* Diagnosis Encounter for anatomic survey- Primary Dichorionic diamniotic twin in first trimester Twin , antepartum Obesity affecting in first trimester, unspecified obesity type 18 weeks gestation of state, incidental Low lying placenta without hemorrhage, antepartum Placenta previa without hemorrhage, antepartum [facility]* Diagnosis Dichorionic diamniotic twin in first trimester- Primary Twin , antepartum 22 weeks gestation of state, incidental documented in this encounter [facility] note* Diagnosis 22 weeks gestation of - Primary state, incidental Dichorionic diamniotic twin in first trimester Twin , antepartum Encounter for supervision of high risk in second trimester, antepartum documented in this encounter [facility] note* Diagnosis with uncertain dates in first trimester- Primary History of gestational diabetes mellitus Personal history of gestational diabetes Forceps or vacuum extractor delivery Forceps or vacuum extractor delivery without mention of indication, unspecified as to episode of care Screening for cervical cancer Screening for malignant neoplasm of the cervix Screening for human papillomavirus Special screening examination for human papillomavirus (HPV) Vaginal bleeding Other specified noninflammatory disorder of vagina History of Wkvp-Rvndw-Hysmoci disease Personal history of other musculoskeletal disorders 8 weeks gestation of state, incidental Obesity affecting in first trimester, unspecified obesity type Encounter for supervision of high risk in first trimester, antepartum Encounter for ultrasound to check growth- Primary Encounter for routine screening for malformation using ultrasonics Dichorionic diamniotic twin in first trimester Twin , antepartum 26 weeks gestation of state, incidental documented in this encounter [facility] note* Diagnosis with uncertain dates in first trimester- Primary History of gestational diabetes mellitus Personal history of gestational diabetes Forceps or vacuum extractor delivery Forceps or vacuum extractor delivery without mention of indication, unspecified as to episode of care Screening for cervical cancer Screening for malignant neoplasm of the cervix Screening for human papillomavirus Special screening examination for human papillomavirus (HPV) Vaginal bleeding Other specified noninflammatory disorder of vagina History of Tdcc-Fcemx-Hipqerr disease Personal history of other musculoskeletal disorders 8 weeks gestation of state, incidental Obesity affecting in first trimester, unspecified obesity type Encounter for supervision of high risk in first trimester, antepartum Encounter for supervision of high risk in second trimester, antepartum- Primary 26 weeks gestation of state, incidental Dichorionic diamniotic twin in second trimester Twin , antepartum Obesity affecting in first trimester, unspecified obesity type Low lying placenta without hemorrhage, antepartum Placenta previa without hemorrhage, antepartum Low-lying placenta Hemorrhage from placenta previa, unspecified as to episode of care documented in this encounter [facility] note* Diagnosis with uncertain dates in first trimester- Primary History of gestational diabetes mellitus Personal history of gestational diabetes Forceps or vacuum extractor delivery Forceps or vacuum extractor delivery without mention of indication, unspecified as to episode of care Screening for cervical cancer Screening for malignant neoplasm of the cervix Screening for human papillomavirus Special screening examination for human papillomavirus (HPV) Vaginal bleeding Other specified noninflammatory disorder of vagina History of Iblc-Dgzmd-Losmmlb disease Personal history of other musculoskeletal disorders 8 weeks gestation of state, incidental Obesity affecting in first trimester, unspecified obesity type Encounter for supervision of high risk in first trimester, antepartum Abnormal glucose complicating - Primary Abnormal maternal glucose tolerance, complicating , childbirth, or the puerperium, unspecified as to episode of care Anemia during in second trimester documented [facility] this encounter [facility] Diagnosis with uncertain dates in first trimester- Primary History of gestational diabetes mellitus Personal history of gestational diabetes Forceps or vacuum extractor delivery Forceps or vacuum extractor delivery without mention of indication, unspecified as to episode of care Screening for cervical cancer Screening for malignant neoplasm of the cervix Screening for human papillomavirus Special screening examination for human papillomavirus (HPV) Vaginal bleeding Other specified noninflammatory disorder of vagina History of Aupt-Ubngg-Smmxldk disease Personal history of other musculoskeletal disorders 8 weeks gestation of state, incidental Obesity affecting in first trimester, unspecified obesity type Encounter for supervision of high risk in first trimester, antepartum Supervision of high risk in third trimester- Primary Unspecified high-risk Abnormal glucose complicating Abnormal maternal glucose tolerance, complicating , childbirth, or the puerperium, unspecified as to episode of care Anemia during in second trimester Obesity affecting in first trimester, unspecified obesity type Low lying placenta without hemorrhage, antepartum Placenta previa without hemorrhage, antepartum Dichorionic diamniotic twin in second trimester Twin , antepartum 28 weeks gestation of state, incidental * Assessment & Plan Note - Linh Zimmerman MD - 10/26/2023 9:56 AM EDT Associated Problem(s): Abnormal glucose complicating * Assessment & Plan Note - Linh Zimmerman MD - 10/26/2023 9:56 AM EDT Associated Problem(s): Anemia during in second trimester Continue po iron * Assessment & Plan Note - Linh Zimmerman MD - 10/26/2023 9:56 AM EDT Associated Problem(s): Obesity affecting in first trimester * Assessment & Plan Note - Linh Zimmerman MD - 10/26/2023 9:56 AM EDT Associated Problem(s): Low lying placenta without hemorrhage, antepartum Continue pelvic rest documented in this encounter [facility] note* Diagnosis with uncertain dates in first trimester- Primary History of gestational diabetes mellitus Personal history of gestational diabetes Forceps or vacuum extractor delivery Forceps or vacuum extractor delivery without mention of indication, unspecified as to episode of care Screening for cervical cancer Screening for malignant neoplasm of the cervix Screening for human papillomavirus Special screening examination for human papillomavirus (HPV) Vaginal bleeding Other specified noninflammatory disorder of vagina History of Uriv-Yxude-Zwromqv disease Personal history of other musculoskeletal disorders 8 weeks gestation of state, incidental Obesity affecting in first trimester, unspecified obesity type Encounter for supervision of high risk in first trimester, antepartum Supervision of high risk in third trimester- Primary Unspecified high-risk Abnormal glucose complicating Abnormal maternal glucose tolerance, complicating , childbirth, or the puerperium, unspecified as to episode of care Anemia during in second trimester Obesity affecting in first trimester, unspecified obesity type Low lying placenta without hemorrhage, antepartum Placenta previa without hemorrhage, antepartum Dichorionic diamniotic twin in second trimester Twin , antepartum 28 weeks gestation of state, incidental Maternal iron deficiency anemia complicating , third trimester- Primary documented in this encounter [facility] note* Diagnosis with uncertain dates in first trimester- Primary History of gestational diabetes mellitus Personal history of gestational diabetes Forceps or vacuum extractor delivery Forceps or vacuum extractor delivery without mention of indication, unspecified as to episode of care Screening for cervical cancer Screening for malignant neoplasm of the cervix Screening for human papillomavirus Special screening examination for human papillomavirus (HPV) Vaginal bleeding Other specified noninflammatory disorder of vagina History of Kjxh-Nejou-Smchilk disease Personal history of other musculoskeletal disorders 8 weeks gestation of state, incidental Obesity affecting in first trimester, unspecified obesity type Encounter for supervision of high risk in first trimester, antepartum Supervision of high risk in third trimester- Primary Unspecified high-risk Abnormal glucose complicating Abnormal maternal glucose tolerance, complicating , childbirth, or the puerperium, unspecified as to episode of care Anemia during in second trimester Obesity affecting in first trimester, unspecified obesity type Low lying placenta without hemorrhage, antepartum Placenta previa without hemorrhage, antepartum Dichorionic diamniotic twin in second trimester Twin , antepartum 28 weeks gestation of state, incidental Gestational diabetes mellitus (GDM), antepartum, gestational diabetes method of control unspecified- Primary [facility] Diagnosis with uncertain dates in first trimester- Primary History of gestational diabetes mellitus Personal history of gestational diabetes Forceps or vacuum extractor delivery Forceps or vacuum extractor delivery without mention of indication, unspecified as to episode of care Screening for cervical cancer Screening for malignant neoplasm of the cervix Screening for human papillomavirus Special screening examination for human papillomavirus (HPV) Vaginal bleeding Other specified noninflammatory disorder of vagina History of Tfiw-Pkyuo-Mfrosmv disease Personal history of other musculoskeletal disorders 8 weeks gestation of state, incidental Obesity affecting in first trimester, unspecified obesity type Encounter for supervision of high risk in first trimester, antepartum Supervision of high risk in third trimester- Primary Unspecified high-risk Abnormal glucose complicating Abnormal maternal glucose tolerance, complicating , childbirth, or the puerperium, unspecified as to episode of care Anemia during in second trimester Obesity affecting in first trimester, unspecified obesity type Low lying placenta without hemorrhage, antepartum Placenta previa without hemorrhage, antepartum Dichorionic diamniotic twin in second trimester Twin , antepartum 28 weeks gestation of state, incidental Maternal iron deficiency anemia complicating , third trimester- Primary [facility] Diagnosis with uncertain dates in first trimester- Primary History of gestational diabetes mellitus Personal history of gestational diabetes Forceps or vacuum extractor delivery Forceps or vacuum extractor delivery without mention of indication, unspecified as to episode of care Screening for cervical cancer Screening for malignant neoplasm of the cervix Screening for human papillomavirus Special screening examination for human papillomavirus (HPV) Vaginal bleeding Other specified noninflammatory disorder of vagina History of Xmqw-Tsmde-Jllefym disease Personal history of other musculoskeletal disorders 8 weeks gestation of state, incidental Obesity affecting in first trimester, unspecified obesity type Encounter for supervision of high risk in first trimester, antepartum Supervision of high risk in third trimester- Primary Unspecified high-risk Abnormal glucose complicating Abnormal maternal glucose tolerance, complicating , childbirth, or the puerperium, unspecified as to episode of care Anemia during in second trimester Obesity affecting in first trimester, unspecified obesity type Low lying placenta without hemorrhage, antepartum Placenta previa without hemorrhage, antepartum Dichorionic diamniotic twin in second trimester Twin , antepartum 28 weeks gestation of state, incidental Maternal iron deficiency anemia complicating , third trimester- Primary [facility] Diagnosis with uncertain dates in first trimester- Primary History of gestational diabetes mellitus Personal history of gestational diabetes Forceps or vacuum extractor delivery Forceps or vacuum extractor delivery without mention of indication, unspecified as to episode of care Screening for cervical cancer Screening for malignant neoplasm of the cervix Screening for human papillomavirus Special screening examination for human papillomavirus (HPV) Vaginal bleeding Other specified noninflammatory disorder of vagina History of Opdp-Odsxs-Gqaiqxb disease Personal history of other musculoskeletal disorders 8 weeks gestation of state, incidental Obesity affecting in first trimester, unspecified obesity type Encounter for supervision of high risk in first trimester, antepartum Supervision of high risk in third trimester- Primary Unspecified high-risk Abnormal glucose complicating Abnormal maternal glucose tolerance, complicating , childbirth, or the puerperium, unspecified as to episode of care Anemia during in second trimester Obesity affecting in first trimester, unspecified obesity type Low lying placenta without hemorrhage, antepartum Placenta previa without hemorrhage, antepartum Dichorionic diamniotic twin in second trimester Twin , antepartum 28 weeks gestation of state, incidental Maternal iron deficiency anemia complicating , third trimester- Primary [facility] Diagnosis with uncertain dates in first trimester- Primary History of gestational diabetes mellitus Personal history of gestational diabetes Forceps or vacuum extractor delivery Forceps or vacuum extractor delivery without mention of indication, unspecified as to episode of care Screening for cervical cancer Screening for malignant neoplasm of the cervix Screening for human papillomavirus Special screening examination for human papillomavirus (HPV) Vaginal bleeding Other specified noninflammatory disorder of vagina History of Xqtw-Bqjqf-Jjnykyr disease Personal history of other musculoskeletal disorders 8 weeks gestation of state, incidental Obesity affecting in first trimester, unspecified obesity type Encounter for supervision of high risk in first trimester, antepartum Supervision of high risk in third trimester- Primary Unspecified high-risk Abnormal glucose complicating Abnormal maternal glucose tolerance, complicating , childbirth, or the puerperium, unspecified as to episode of care Anemia during in second trimester Obesity affecting in first trimester, unspecified obesity type Low lying placenta without hemorrhage, antepartum Placenta previa without hemorrhage, antepartum Dichorionic diamniotic twin in second trimester Twin , antepartum 28 weeks gestation of state, incidental Supervision of high risk in third trimester- Primary Unspecified high-risk Need for influenza vaccination Need for prophylactic vaccination and inoculation against influenza Need for vaccination Need for prophylactic vaccination and inoculation against unspecified single disease Gestational diabetes mellitus (GDM), antepartum, gestational diabetes method of control unspecified Anemia complicating , third trimester Dichorionic diamniotic twin in third trimester Twin , antepartum [facility] Diagnosis with uncertain dates in first trimester- Primary History of gestational diabetes mellitus Personal history of gestational diabetes Forceps or vacuum extractor delivery Forceps or vacuum extractor delivery without mention of indication, unspecified as to episode of care Screening for cervical cancer Screening for malignant neoplasm of the cervix Screening for human papillomavirus Special screening examination for human papillomavirus (HPV) Vaginal bleeding Other specified noninflammatory disorder of vagina History of Tntr-Tumbq-Ozdficl disease Personal history of other musculoskeletal disorders 8 weeks gestation of state, incidental Obesity affecting in first trimester, unspecified obesity type Encounter for supervision of high risk in first trimester, antepartum Supervision of high risk in third trimester- Primary Unspecified high-risk Abnormal glucose complicating Abnormal maternal glucose tolerance, complicating , childbirth, or the puerperium, unspecified as to episode of care Anemia during in second trimester Obesity affecting in first trimester, unspecified obesity type Low lying placenta without hemorrhage, antepartum Placenta previa without hemorrhage, antepartum Dichorionic diamniotic twin in second trimester Twin , antepartum 28 weeks gestation of state, incidental Dichorionic diamniotic twin in first trimester- Primary Twin , antepartum documented in this encounter [facility] note* Diagnosis with uncertain dates in first trimester- Primary History of gestational diabetes mellitus Personal history of gestational diabetes Forceps or vacuum extractor delivery Forceps or vacuum extractor delivery without mention of indication, unspecified as to episode of care Screening for cervical cancer Screening for malignant neoplasm of the cervix Screening for human papillomavirus Special screening examination for human papillomavirus (HPV) Vaginal bleeding Other specified noninflammatory disorder of vagina History of Mghn-Foikt-Vfsmulb disease Personal history of other musculoskeletal disorders 8 weeks gestation of state, incidental Obesity affecting in first trimester, unspecified obesity type Encounter for supervision of high risk in first trimester, antepartum Supervision of high risk in third trimester- Primary Unspecified high-risk Abnormal glucose complicating Abnormal maternal glucose tolerance, complicating , childbirth, or the puerperium, unspecified as to episode of care Anemia during in second trimester Obesity affecting in first trimester, unspecified obesity type Low lying placenta without hemorrhage, antepartum Placenta previa without hemorrhage, antepartum Dichorionic diamniotic twin in second trimester Twin , antepartum 28 weeks gestation of state, incidental Gestational diabetes mellitus (GDM), antepartum, gestational diabetes method of control unspecified documented in this encounter [facility] note* Diagnosis with uncertain dates in first trimester- Primary History of gestational diabetes mellitus Personal history of gestational diabetes Forceps or vacuum extractor delivery Forceps or vacuum extractor delivery without mention of indication, unspecified as to episode of care Screening for cervical cancer Screening for malignant neoplasm of the cervix Screening for human papillomavirus Special screening examination for human papillomavirus (HPV) Vaginal bleeding Other specified noninflammatory disorder of vagina History of Jzme-Wpzaf-Qxevvdm disease Personal history of other musculoskeletal disorders 8 weeks gestation of state, incidental Obesity affecting in first trimester, unspecified obesity type Encounter for supervision of high risk in first trimester, antepartum Supervision of high risk in third trimester- Primary Unspecified high-risk Abnormal glucose complicating Abnormal maternal glucose tolerance, complicating , childbirth, or the puerperium, unspecified as to episode of care Anemia during in second trimester Obesity affecting in first trimester, unspecified obesity type Low lying placenta without hemorrhage, antepartum Placenta previa without hemorrhage, antepartum Dichorionic diamniotic twin in second trimester Twin , antepartum 28 weeks gestation of state, incidental 32 weeks gestation of - Primary state, incidental Supervision of high risk in third trimester Unspecified high-risk Anemia complicating , third trimester Gestational diabetes mellitus (GDM), antepartum, gestational diabetes method of control unspecified Benign gestational thrombocytopenia in second trimester (HCC) documented in this encounter [facility] note* Diagnosis with uncertain dates in first trimester- Primary History of gestational diabetes mellitus Personal history of gestational diabetes Forceps or vacuum extractor delivery Forceps or vacuum extractor delivery without mention of indication, unspecified as to episode of care Screening for cervical cancer Screening for malignant neoplasm of the cervix Screening for human papillomavirus Special screening examination for human papillomavirus (HPV) Vaginal bleeding Other specified noninflammatory disorder of vagina History of Sfio-Calqd-Ebydxpv disease Personal history of other musculoskeletal disorders 8 weeks gestation of state, incidental Obesity affecting in first trimester, unspecified obesity type Encounter for supervision of high risk in first trimester, antepartum Supervision of high risk in third trimester- Primary Unspecified high-risk Abnormal glucose complicating Abnormal maternal glucose tolerance, complicating , childbirth, or the puerperium, unspecified as to episode of care Anemia during in second trimester Obesity affecting in first trimester, unspecified obesity type Low lying placenta without hemorrhage, antepartum Placenta previa without hemorrhage, antepartum Dichorionic diamniotic twin in second trimester Twin , antepartum 28 weeks gestation of state, incidental with uncertain dates in first trimester History of gestational diabetes mellitus Personal history of gestational diabetes Forceps or vacuum extractor delivery Forceps or vacuum extractor delivery without mention of indication, unspecified as to episode of care 8 weeks gestation of state, incidental Encounter for supervision of high risk in first trimester, antepartum documented in this encounter [facility] note* Diagnosis with uncertain dates in first trimester- Primary History of gestational diabetes mellitus Personal history of gestational diabetes Forceps or vacuum extractor delivery Forceps or vacuum extractor delivery without mention of indication, unspecified as to episode of care Screening for cervical cancer Screening for malignant neoplasm of the cervix Screening for human papillomavirus Special screening examination for human papillomavirus (HPV) Vaginal bleeding Other specified noninflammatory disorder of vagina History of Whgw-Fwxtu-Eitifqv disease Personal history of other musculoskeletal disorders 8 weeks gestation of state, incidental Obesity affecting in first trimester, unspecified obesity type Encounter for supervision of high risk in first trimester, antepartum Supervision of high risk in third trimester- Primary Unspecified high-risk Abnormal glucose complicating Abnormal maternal glucose tolerance, complicating , childbirth, or the puerperium, unspecified as to episode of care Anemia during in second trimester Obesity affecting in first trimester, unspecified obesity type Low lying placenta without hemorrhage, antepartum Placenta previa without hemorrhage, antepartum Dichorionic diamniotic twin in second trimester Twin , antepartum 28 weeks gestation of state, incidental Maternal iron deficiency anemia complicating , third trimester- Primary documented in this encounter [facility] note* Diagnosis with uncertain dates in first trimester- Primary History of gestational diabetes mellitus Personal history of gestational diabetes Forceps or vacuum extractor delivery Forceps or vacuum extractor delivery without mention of indication, unspecified as to episode of care Screening for cervical cancer Screening for malignant neoplasm of the cervix Screening for human papillomavirus Special screening examination for human papillomavirus (HPV) Vaginal bleeding Other specified noninflammatory disorder of vagina History of Loue-Mjtwf-Qzewgvj disease Personal history of other musculoskeletal disorders 8 weeks gestation of state, incidental Obesity affecting in first trimester, unspecified obesity type Encounter for supervision of high risk in first trimester, antepartum Supervision of high risk in third trimester- Primary Unspecified high-risk Abnormal glucose complicating Abnormal maternal glucose tolerance, complicating , childbirth, or the puerperium, unspecified as to episode of care Anemia during in second trimester Obesity affecting in first trimester, unspecified obesity type Low lying placenta without hemorrhage, antepartum Placenta previa without hemorrhage, antepartum Dichorionic diamniotic twin in second trimester Twin , antepartum 28 weeks gestation of state, incidental Encounter for ultrasound to check growth- Primary Encounter for routine screening for malformation using ultrasonics Dichorionic diamniotic twin in first trimester Twin , antepartum Diet controlled gestational diabetes mellitus (GDM), antepartum 34 weeks gestation of state, incidental [facility] Diagnosis with uncertain dates in first trimester- Primary History of gestational diabetes mellitus Personal history of gestational diabetes Forceps or vacuum extractor delivery Forceps or vacuum extractor delivery without mention of indication, unspecified as to episode of care Screening for cervical cancer Screening for malignant neoplasm of the cervix Screening for human papillomavirus Special screening examination for human papillomavirus (HPV) Vaginal bleeding Other specified noninflammatory disorder of vagina History of Ltyc-Jqjxu-Agfpymx disease Personal history of other musculoskeletal disorders 8 weeks gestation of state, incidental Obesity affecting in first trimester, unspecified obesity type Encounter for supervision of high risk in first trimester, antepartum Supervision of high risk in third trimester- Primary Unspecified high-risk Abnormal glucose complicating Abnormal maternal glucose tolerance, complicating , childbirth, or the puerperium, unspecified as to episode of care Anemia during in second trimester Obesity affecting in first trimester, unspecified obesity type Low lying placenta without hemorrhage, antepartum Placenta previa without hemorrhage, antepartum Dichorionic diamniotic twin in second trimester Twin , antepartum 28 weeks gestation of state, incidental Supervision of high risk in third trimester- Primary Unspecified high-risk Anemia complicating , third trimester Gestational diabetes mellitus (GDM), antepartum, gestational diabetes method of control unspecified Dichorionic diamniotic twin in third trimester Twin , antepartum Benign gestational thrombocytopenia in third trimester (HCC) [facility] Diagnosis with uncertain dates in first trimester- Primary History of gestational diabetes mellitus Personal history of gestational diabetes Forceps or vacuum extractor delivery Forceps or vacuum extractor delivery without mention of indication, unspecified as to episode of care Screening for cervical cancer Screening for malignant neoplasm of the cervix Screening for human papillomavirus Special screening examination for human papillomavirus (HPV) Vaginal bleeding Other specified noninflammatory disorder of vagina History of Pxnz-Uupwi-Osjbfft disease Personal history of other musculoskeletal disorders 8 weeks gestation of state, incidental Obesity affecting in first trimester, unspecified obesity type Encounter for supervision of high risk in first trimester, antepartum Supervision of high risk in third trimester- Primary Unspecified high-risk Abnormal glucose complicating Abnormal maternal glucose tolerance, complicating , childbirth, or the puerperium, unspecified as to episode of care Anemia during in second trimester Obesity affecting in first trimester, unspecified obesity type Low lying placenta without hemorrhage, antepartum Placenta previa without hemorrhage, antepartum Dichorionic diamniotic twin in second trimester Twin , antepartum 28 weeks gestation of state, incidental Maternal iron deficiency anemia complicating , third trimester- Primary documented in this encounter [facility] note* Diagnosis with uncertain dates in first trimester- Primary History of gestational diabetes mellitus Personal history of gestational diabetes Forceps or vacuum extractor delivery Forceps or vacuum extractor delivery without mention of indication, unspecified as to episode of care Screening for cervical cancer Screening for malignant neoplasm of the cervix Screening for human papillomavirus Special screening examination for human papillomavirus (HPV) Vaginal bleeding Other specified noninflammatory disorder of vagina History of Jnge-Ibpyv-Qftlbyg disease Personal history of other musculoskeletal disorders 8 weeks gestation of state, incidental Obesity affecting in first trimester, unspecified obesity type Encounter for supervision of high risk in first trimester, antepartum Supervision of high risk in third trimester- Primary Unspecified high-risk Abnormal glucose complicating Abnormal maternal glucose tolerance, complicating , childbirth, or the puerperium, unspecified as to episode of care Anemia during in second trimester Obesity affecting in first trimester, unspecified obesity type Low lying placenta without hemorrhage, antepartum Placenta previa without hemorrhage, antepartum Dichorionic diamniotic twin in second trimester Twin , antepartum 28 weeks gestation of state, incidental Supervision of high risk in third trimester- Primary Unspecified high-risk Anemia complicating , third trimester Gestational diabetes mellitus (GDM), antepartum, gestational diabetes method of control unspecified Dichorionic diamniotic twin in third trimester Twin , antepartum Benign gestational thrombocytopenia in third trimester (HCC) 35 weeks gestation of state, incidental [facility] in this encounter [facility] Diagnosis with uncertain dates in first trimester- Primary History of gestational diabetes mellitus Personal history of gestational diabetes Forceps or vacuum extractor delivery Forceps or vacuum extractor delivery without mention of indication, unspecified as to episode of care Screening for cervical cancer Screening for malignant neoplasm of the cervix Screening for human papillomavirus Special screening examination for human papillomavirus (HPV) Vaginal bleeding Other specified noninflammatory disorder of vagina History of Mktp-Fcvnz-Pfutact disease Personal history of other musculoskeletal disorders 8 weeks gestation of state, incidental Obesity affecting in first trimester, unspecified obesity type Encounter for supervision of high risk in first trimester, antepartum Supervision of high risk in third trimester- Primary Unspecified high-risk Abnormal glucose complicating Abnormal maternal glucose tolerance, complicating , childbirth, or the puerperium, unspecified as to episode of care Anemia during in second trimester Obesity affecting in first trimester, unspecified obesity type Low lying placenta without hemorrhage, antepartum Placenta previa without hemorrhage, antepartum Dichorionic diamniotic twin in second trimester Twin , antepartum 28 weeks gestation of state, incidental Supervision of high risk in third trimester- Primary Unspecified high-risk Dichorionic diamniotic twin in third trimester Twin , antepartum Gestational diabetes mellitus (GDM), antepartum, gestational diabetes method of control unspecified 36 weeks gestation of state, incidental documented in this encounter [facility] course Narrative No data available for this section [facility] Reason for referral (narrative)* Diagnostic Procedure Only (Routine) - Pending Review Specialty Diagnoses / Procedures Referred By Nancy jaeger Referred To Contact [facility] Diagnoses Malposition of fetus, single or unspecified fetus Procedures OBSTETRIC ULTRASOUND WHI US PREG UTERUS AFTER 1ST TRIMEST GESTATION Samy Delaney MD [address] [address] Referral ID Status Reason Start Date Expiration Date Visits Requested Visits Authorized [id number] Pending Review Auto-Generat ed Referral 05/04/2021 05/04/2022 1 1 [facility] for referral (narrative)* Diagnostic Procedure Only (Routine) - Authorized Specialty Diagnoses / Procedures Referred By Nancy jaeger Referred To Contact [facility] Diagnoses 38 weeks gestation of GDM (gestational diabetes mellitus), class A1 Procedures OBSTETRIC ULTRASOUND WHI US PREG UTERUS AFTER 1ST TRIMEST GESTATION Marcia Beckett APRN.JAIRO [address] [address] [facility] Referral ID Status Reason Start Date Expiration Date Visits Requested Visits Authorized [id number] Authorized Auto-Generate d Referral Patient Cleared - Qualified 100% FAS 05/12/2021 08/10/2021 99 99 [facility] for referral (narrative)* Outpatient Procedure (Routine) - Pending Review Specialty Diagnoses / Procedures Referred By Contac t Referred To [facility] Diagnoses 39 weeks gestation of GDM (gestational diabetes mellitus), class A1 Procedures NON-STRESS TEST NON-STRESS TEST Cheli Dillard MD [address] [place] [address] [facility] [address] [place] [address] Referral ID Status Reason Start Date Expiration Date Visits Requested Visits Authorized [id number] Pending Review Auto-Generat ed Referral 05/19/2021 05/19/2022 1 1 [facility] for referral (narrative)* Diagnostic Procedure Only (Routine) - Authorized Specialty Diagnoses / Procedures Referred By Contac t Referred To [facility] Diagnoses Dichorionic diamniotic twin in first trimester Procedures NUCHAL TRANSLUCENCY WHI US NUCHAL TRANSLUCENCY 1ST GESTATION Harrison Cam MD [address] [place] [address] [facility] [address] [place] [id number] Referral ID Status Reason Start Date Expiration Date Visits Requested Visits Authorized [id number] Authorized Auto-Generat ed Referral 07/05/2023 07/04/2024 1 1 [facility] for referral (narrative)* Diagnostic Procedure Only (Routine) - Authorized Specialty Diagnoses / Procedures Referred By Contac t Referred To [facility] Diagnoses Dichorionic diamniotic twin in first trimester Procedures OBSTETRIC ULTRASOUND WHI US PREG UTERUS AFTER 1ST TRIMEST 1 GESTATION Harrison Cam MD [address] [place] [address] [facility] [address] [place] [address] Referral ID Status Reason Start Date Expiration Date Visits Requested Visits Authorized [id number] Authorized Auto-Generat ed Referral 08/16/2023 08/15/2024 8 1 [facility] Summary Purpose Family History No Family History Records Found No data available for this section No data available for this section No Family History Records Found No data available for this section No Family History Records FoundNo Family History Records FoundNo Family History Records FoundNo Family History Records FoundNo Family History Records FoundNo Family History Records FoundNo Family History Records Found Advance Directives No Advanced Directives Records FoundNo Advanced Directives Records FoundNo Advanced Directives Records FoundNo Advanced Directives Records FoundNo Advanced Directives Records FoundNo Advanced Directives Records FoundNo Advanced Directives Records FoundNo Advanced Directives Records FoundNo Advanced Directives Records Found Health Concerns Problem Noted Date Diagnosed Date [facility] - [facility] 01/07/2023 Education - [place] 01/07/2023 Problem Noted Date Diagnosed Date [facility] - [facility] 01/07/2023 Education - [place] 01/07/2023 Problem Noted Date Diagnosed Date [facility] - [facility] 01/07/2023 Education - [place] 01/07/2023 Reason for Referral Specialty Diagnoses / Procedures Referred By Contac t Referred To Contact Nutrition Diagnoses Gestational diabetes mellitus (GDM), antepartum, gestational diabetes method of control unspecified Procedures CONSULT TO NUTRITION THERAPY MEDICAL NUTRITION ASSMT&IVNTJ INDIV EACH 15 SD Lg Munson MD [address] [place] [address] Referral ID Status Reason Start Date Expiration Date Visits Requested Visits Authorized [id number] Authorized PCP Requested Referral 10/28/2023 10/27/2024 1 4 Specialty Diagnoses / Procedures Referred By Contac t Referred To Contact Diagnoses Gestational diabetes mellitus (GDM), antepartum, gestational diabetes method of control unspecified Procedures CONSULT TO DIABETES EDUCATION DSME MEDICAL NUTRITION ASSMT&IVNTJ INDIV EACH 15 SD MEDICAL NUTRITION ASSMT&IVNTJ INDIV EACH 15 SD MEDICAL NUTRITION ASSMT&IVNTJ INDIV EACH 15 SD MEDICAL NUTRITION ASSMT&IVNTJ INDIV EACH 15 SD Lg Munson MD [address] [place] [address] Referral ID Status Reason Start Date Expiration Date Visits Requested Visits Authorized [id number] Authorized PCP Requested Referral 10/28/2023 10/27/2024 1 1 Specialty Diagnoses / Procedures Referred By Contac t Referred To Contact Diagnoses with uncertain dates in first trimester History of gestational diabetes mellitus Forceps or vacuum extractor delivery 8 weeks gestation of Encounter for supervision of high risk in first trimester, antepartum Procedures MPOWER CONSULT Melony Pineda APRN.CNM [address] [place] [address] Referral ID Status Reason Start Date Expiration Date Visits Requested Visits Authorized [id number] Ref Not Required PCP Requested Referral 06/06/2023 06/05/2024 1 1 Specialty Diagnoses / Procedures Referred By Contac t Referred To Contact [facility] Diagnoses with uncertain dates in first trimester History of gestational diabetes mellitus Forceps or vacuum extractor delivery Procedures NUCHAL TRANSLUCENCY WHI US NUCHAL TRANSLUCENCY 1ST GESTATION Melony Pineda APRN.CNM [address] [place] [address] [facility] [address] [place] [address] Referral ID Status Reason Start Date Expiration Date Visits Requested Visits Authorized [id number] Pending Review Auto-Generat ed Referral 06/06/2023 06/05/2024 1 1 Specialty Diagnoses / Procedures Referred By Contac t Referred To Contact [facility] NAM[facility] Diagnoses with uncertain dates in first trimester Procedures OBSTETRIC ULTRASOUND WHI US PREG UTERUS AFTER 1ST TRIMEST 1/ GESTATION Melony Pineda APRN.CNM [address] [place] [address] [facility] [address] [place] [address] Referral ID Status Reason Start Date Expiration Date Visits Requested Visits Authorized [id number] Pending Review Auto-Generat ed Referral 06/06/2023 06/05/2024 1 1 Additional Source Comments Source Comments (unrecognize d section and content) In the event this informatio n is protected by the Federal Confidentiality of Alcohol and Drug Abuse Patient Records regulations: The Federal rules restrict any use of the information to criminally investigate or prosecute any alcohol or drug abuse patient.[facility] Center[facility] the event this information is protected by the Federal Confidentiality of Alcohol and Drug Abuse Patient Records regulations: The Federal rules restrict any use of the information to criminally investigate or prosecute any alcohol or drug abuse patient.[facility] CenterIn the event this information is protected by the Federal Confidentiality of Alcohol and Drug Abuse Patient Records regulations: The Federal rules restrict any use of the information to criminally investigate or prosecute any alcohol or drug abuse patient.[facility] CenterIn the event this information is protected by the Federal Confidentiality of Alcohol and Drug Abuse Patient Records regulations: The Federal rules restrict any use of the information to criminally investigate or prosecute any alcohol or drug abuse patient.[facility] CenterIn the event this information is protected by the Federal Confidentiality of Alcohol and Drug Abuse Patient Records regulations: The Federal rules restrict any use of the information to criminally investigate or prosecute any alcohol or drug abuse patient.[facility] CenterIn the event this information is protected by the Federal Confidentiality of Alcohol and Drug Abuse Patient Records regulations: The Federal rules restrict any use of the information to criminally investigate or prosecute any alcohol or drug abuse patient.[facility] CenterIn the event this information is protected by the Federal Confidentiality of Alcohol and Drug Abuse Patient Records regulations: The Federal rules restrict any use of the information to criminally investigate or prosecute any alcohol or drug abuse patient.[facility] CenterIn the event this information is protected by the Federal Confidentiality of Alcohol and Drug Abuse Patient Records regulations: The Federal rules restrict any use of the information to criminally investigate or prosecute any alcohol or drug abuse patient.[facility] CenterIn the event this information is protected by the Federal Confidentiality of Alcohol and Drug Abuse Patient Records regulations: The Federal rules restrict any use of the information to criminally investigate or prosecute any alcohol or drug abuse patient.[facility] CenterIn the event this information is protected by the Federal Confidentiality of Alcohol and Drug Abuse Patient Records regulations: The Federal rules restrict any use of the information to criminally investigate or prosecute any alcohol or drug abuse patient.[facility] CenterIn the event this information is protected by the Federal Confidentiality of Alcohol and Drug Abuse Patient Records regulations: The Federal rules restrict any use of the information to criminally investigate or prosecute any alcohol or drug abuse patient.[facility] CenterIn the event this information is protected by the Federal Confidentiality of Alcohol and Drug Abuse Patient Records regulations: The Federal rules restrict any use of the information to criminally investigate or prosecute any alcohol or drug abuse patient.[facility] CenterIn the event this information is protected by the Federal Confidentiality of Alcohol and Drug Abuse Patient Records regulations: The Federal rules restrict any use of the information to criminally investigate or prosecute any alcohol or drug abuse patient.[facility] CenterIn the event this information is protected by the Federal Confidentiality of Alcohol and Drug Abuse Patient Records regulations: The Federal rules restrict any use of the information to criminally investigate or prosecute any alcohol or drug abuse patient.[facility] CenterIn the event this information is protected by the Federal Confidentiality of Alcohol and Drug Abuse Patient Records regulations: The Federal rules restrict any use of the information to criminally investigate or prosecute any alcohol or drug abuse patient.[facility] CenterIn the event this information is protected by the Federal Confidentiality of Alcohol and Drug Abuse Patient Records regulations: The Federal rules restrict any use of the information to criminally investigate or prosecute any alcohol or drug abuse patient.[facility] CenterIn the event this information is protected by the Federal Confidentiality of Alcohol and Drug Abuse Patient Records regulations: The Federal rules restrict any use of the information to criminally investigate or prosecute any alcohol or drug abuse patient.[facility] CenterIn the event this information is protected by the Federal Confidentiality of Alcohol and Drug Abuse Patient Records regulations: The Federal rules restrict any use of the information to criminally investigate or prosecute any alcohol or drug abuse patient.[facility] CenterIn the event this information is protected by the Federal Confidentiality of Alcohol and Drug Abuse Patient Records regulations: The Federal rules restrict any use of the information to criminally investigate or prosecute any alcohol or drug abuse patient.[facility] CenterIn the event this information is protected by the Federal Confidentiality of Alcohol and Drug Abuse Patient Records regulations: The Federal rules restrict any use of the information to criminally investigate or prosecute any alcohol or drug abuse patient.[facility] CenterIn the event this information is protected by the Federal Confidentiality of Alcohol and Drug Abuse Patient Records regulations: The Federal rules restrict any use of the information to criminally investigate or prosecute any alcohol or drug abuse patient.[facility] CenterIn the event this information is protected by the Federal Confidentiality of Alcohol and Drug Abuse Patient Records regulations: The Federal rules restrict any use of the information to criminally investigate or prosecute any alcohol or drug abuse patient.[facility] CenterIn the event this information is protected by the Federal Confidentiality of Alcohol and Drug Abuse Patient Records regulations: The Federal rules restrict any use of the information to criminally investigate or prosecute any alcohol or drug abuse patient.[facility] CenterIn the event this information is protected by the Federal Confidentiality of Alcohol and Drug Abuse Patient Records regulations: The Federal rules restrict any use of the information to criminally investigate or prosecute any alcohol or drug abuse patient.[facility] CenterIn the event this information is protected by the Federal Confidentiality of Alcohol and Drug Abuse Patient Records regulations: The Federal rules restrict any use of the information to criminally investigate or prosecute any alcohol or drug abuse patient.[facility] CenterIn the event this information is protected by the Federal Confidentiality of Alcohol and Drug Abuse Patient Records regulations: The Federal rules restrict any use of the information to criminally investigate or prosecute any alcohol or drug abuse patient.[facility] CenterIn the event this information is protected by the Federal Confidentiality of Alcohol and Drug Abuse Patient Records regulations: The Federal rules restrict any use of the information to criminally investigate or prosecute any alcohol or drug abuse patient.[facility] CenterIn the event this information is protected by the Federal Confidentiality of Alcohol and Drug Abuse Patient Records regulations: The Federal rules restrict any use of the information to criminally investigate or prosecute any alcohol or drug abuse patient.[facility] CenterIn the event this information is protected by the Federal Confidentiality of Alcohol and Drug Abuse Patient Records regulations: The Federal rules restrict any use of the information to criminally investigate or prosecute any alcohol or drug abuse patient.[facility] CenterIn the event this information is protected by the Federal Confidentiality of Alcohol and Drug Abuse Patient Records regulations: The Federal rules restrict any use of the information to criminally investigate or prosecute any alcohol or drug abuse patient.[facility] CenterIn the event this information is protected by the Federal Confidentiality of Alcohol and Drug Abuse Patient Records regulations: The Federal rules restrict any use of the information to criminally investigate or prosecute any alcohol or drug abuse patient.[facility] CenterIn the event this information is protected by the Federal Confidentiality of Alcohol and Drug Abuse Patient Records regulations: The Federal rules restrict any use of the information to criminally investigate or prosecute any alcohol or drug abuse patient.[facility] CenterIn the event this information is protected by the Federal Confidentiality of Alcohol and Drug Abuse Patient Records regulations: The Federal rules restrict any use of the information to criminally investigate or prosecute any alcohol or drug abuse patient.[facility] CenterIn the event this information is protected by the Federal Confidentiality of Alcohol and Drug Abuse Patient Records regulations: The Federal rules restrict any use of the information to criminally investigate or prosecute any alcohol or drug abuse patient.[facility] CenterIn the event this information is protected by the Federal Confidentiality of Alcohol and Drug Abuse Patient Records regulations: The Federal rules restrict any use of the information to criminally investigate or prosecute any alcohol or drug abuse patient.[facility] CenterIn the event this information is protected by the Federal Confidentiality of Alcohol and Drug Abuse Patient Records regulations: The Federal rules restrict any use of the information to criminally investigate or prosecute any alcohol or drug abuse patient.[facility] CenterIn the event this information is protected by the Federal Confidentiality of Alcohol and Drug Abuse Patient Records regulations: The Federal rules restrict any use of the information to criminally investigate or prosecute any alcohol or drug abuse patient.[facility] CenterIn the event this information is protected by the Federal Confidentiality of Alcohol and Drug Abuse Patient Records regulations: The Federal rules restrict any use of the information to criminally investigate or prosecute any alcohol or drug abuse patient.[facility] CenterIn the event this information is protected by the Federal Confidentiality of Alcohol and Drug Abuse Patient Records regulations: The Federal rules restrict any use of the information to criminally investigate or prosecute any alcohol or drug abuse patient.[facility] CenterIn the event this information is protected by the Federal Confidentiality of Alcohol and Drug Abuse Patient Records regulations: The Federal rules restrict any use of the information to criminally investigate or prosecute any alcohol or drug abuse patient.[facility] CenterIn the event this information is protected by the Federal Confidentiality of Alcohol and Drug Abuse Patient Records regulations: The Federal rules restrict any use of the information to criminally investigate or prosecute any alcohol or drug abuse patient.[facility] CenterIn the event this information is protected by the Federal Confidentiality of Alcohol and Drug Abuse Patient Records regulations: The Federal rules restrict any use of the information to criminally investigate or prosecute any alcohol or drug abuse patient.[facility] CenterIn the event this information is protected by the Federal Confidentiality of Alcohol and Drug Abuse Patient Records regulations: The Federal rules restrict any use of the information to criminally investigate or prosecute any alcohol or drug abuse patient.[facility] CenterIn the event this information is protected by the Federal Confidentiality of Alcohol and Drug Abuse Patient Records regulations: The Federal rules restrict any use of the information to criminally investigate or prosecute any alcohol or drug abuse patient.[facility] CenterIn the event this information is protected by the Federal Confidentiality of Alcohol and Drug Abuse Patient Records regulations: The Federal rules restrict any use of the information to criminally investigate or prosecute any alcohol or drug abuse patient.[facility] CenterIn the event this information is protected by the Federal Confidentiality of Alcohol and Drug Abuse Patient Records regulations: The Federal rules restrict any use of the information to criminally investigate or prosecute any alcohol or drug abuse patient.[facility] CenterIn the event this information is protected by the Federal Confidentiality of Alcohol and Drug Abuse Patient Records regulations: The Federal rules restrict any use of the information to criminally investigate or prosecute any alcohol or drug abuse patient.[facility] CenterIn the event this information is protected by the Federal Confidentiality of Alcohol and Drug Abuse Patient Records regulations: The Federal rules restrict any use of the information to criminally investigate or prosecute any alcohol or drug abuse patient.[facility] CenterIn the event this information is protected by the Federal Confidentiality of Alcohol and Drug Abuse Patient Records regulations: The Federal rules restrict any use of the information to criminally investigate or prosecute any alcohol or drug abuse patient.[facility] CenterIn the event this information is protected by the Federal Confidentiality of Alcohol and Drug Abuse Patient Records regulations: The Federal rules restrict any use of the information to criminally investigate or prosecute any alcohol or drug abuse patient.[facility] CenterIn the event this information is protected by the Federal Confidentiality of Alcohol and Drug Abuse Patient Records regulations: The Federal rules restrict any use of the information to criminally investigate or prosecute any alcohol or drug abuse patient.[facility] CenterIn the event this information is protected by the Federal Confidentiality of Alcohol and Drug Abuse Patient Records regulations: The Federal rules restrict any use of the information to criminally investigate or prosecute any alcohol or drug abuse patient.[facility] CenterIn the event this information is protected by the Federal Confidentiality of Alcohol and Drug Abuse Patient Records regulations: The Federal rules restrict any use of the information to criminally investigate or prosecute any alcohol or drug abuse patient.[facility] CenterIn the event this information is protected by the Federal Confidentiality of Alcohol and Drug Abuse Patient Records regulations: The Federal rules restrict any use of the information to criminally investigate or prosecute any alcohol or drug abuse patient.[facility] CenterIn the event this information is protected by the Federal Confidentiality of Alcohol and Drug Abuse Patient Records regulations: The Federal rules restrict any use of the information to criminally investigate or prosecute any alcohol or drug abuse patient.[facility] CenterIn the event this information is protected by the Federal Confidentiality of Alcohol and Drug Abuse Patient Records regulations: The Federal rules restrict any use of the information to criminally investigate or prosecute any alcohol or drug abuse patient.[facility] CenterIn the event this information is protected by the Federal Confidentiality of Alcohol and Drug Abuse Patient Records regulations: The Federal rules restrict any use of the information to criminally investigate or prosecute any alcohol or drug abuse patient.[facility] CenterIn the event this information is protected by the Federal Confidentiality of Alcohol and Drug Abuse Patient Records regulations: The Federal rules restrict any use of the information to criminally investigate or prosecute any alcohol or drug abuse patient.[facility] CenterIn the event this information is protected by the Federal Confidentiality of Alcohol and Drug Abuse Patient Records regulations: The Federal rules restrict any use of the information to criminally investigate or prosecute any alcohol or drug abuse patient.[facility] CenterIn the event this information is protected by the Federal Confidentiality of Alcohol and Drug Abuse Patient Records regulations: The Federal rules restrict any use of the information to criminally investigate or prosecute any alcohol or drug abuse patient.[facility] CenterIn the event this information is protected by the Federal Confidentiality of Alcohol and Drug Abuse Patient Records regulations: The Federal rules restrict any use of the information to criminally investigate or prosecute any alcohol or drug abuse patient.[facility] CenterIn the event this information is protected by the Federal Confidentiality of Alcohol and Drug Abuse Patient Records regulations: The Federal rules restrict any use of the information to criminally investigate or prosecute any alcohol or drug abuse patient.[facility] CenterIn the event this information is protected by the Federal Confidentiality of Alcohol and Drug Abuse Patient Records regulations: The Federal rules restrict any use of the information to criminally investigate or prosecute any alcohol or drug abuse patient.[facility] CenterIn the event this information is protected by the Federal Confidentiality of Alcohol and Drug Abuse Patient Records regulations: The Federal rules restrict any use of the information to criminally investigate or prosecute any alcohol or drug abuse patient.[facility] CenterIn the event this information is protected by the Federal Confidentiality of Alcohol and Drug Abuse Patient Records regulations: The Federal rules restrict any use of the information to criminally investigate or prosecute any alcohol or drug abuse patient.[facility] CenterIn the event this information is protected by the Federal Confidentiality of Alcohol and Drug Abuse Patient Records regulations: The Federal rules restrict any use of the information to criminally investigate or prosecute any alcohol or drug abuse patient.[facility] CenterIn the event this information is protected by the Federal Confidentiality of Alcohol and Drug Abuse Patient Records regulations: The Federal rules restrict any use of the information to criminally investigate or prosecute any alcohol or drug abuse patient.[facility] CenterIn the event this information is protected by the Federal Confidentiality of Alcohol and Drug Abuse Patient Records regulations: The Federal rules restrict any use of the information to criminally investigate or prosecute any alcohol or drug abuse patient.[facility] CenterIn the event this information is protected by the Federal Confidentiality of Alcohol and Drug Abuse Patient Records regulations: The Federal rules restrict any use of the information to criminally investigate or prosecute any alcohol or drug abuse patient.[facility] CenterIn the event this information is protected by the Federal Confidentiality of Alcohol and Drug Abuse Patient Records regulations: The Federal rules restrict any use of the information to criminally investigate or prosecute any alcohol or drug abuse patient.[facility] Reason for Visit (unrecogniz ed section and content) Reason Comments Anemia Specialty Diagnoses / Procedures Referred By Contac t Referred To Contact Diagnoses Maternal iron deficiency anemia complicating , third trimester Procedures IRON SUCROSE INJECTION PER 1 MG Harrison Cam MD [address] [place] [address] [facility] [address] [place] [address] Referral ID Status Reason Start Date Expiration Date V isits Requested Visits Authorized [id number] Authorized 12/01/2023 02/07/2024 0 99 Reason Comments US Specialty Diagnoses / Procedures Referred By Contac t Referred To Contact [facility] Diagnoses Dichorionic diamniotic twin in first trimester Procedures NUCHAL TRANSLUCENCY WHI US NUCHAL TRANSLUCENCY 1ST GESTATION Harrison Cam MD [address] [place] [address] [facility] [address] [place] [address] Referral ID Status Reason Start Date Expiration Date V isits Requested Visits Authorized [id number] Closed Auto-Generate d Referral 07/05/2023 07/04/2024 1 1 Reason Comments Care [id number] Specialty Diagnoses / Procedures Referred By Contac t Referred To Contact [facility]AM[facility] Diagnoses 16 weeks gestation of Encounter for supervision of normal first in second trimester Procedures OBSTETRIC ULTRASOUND WHI US-MATERNAL/ COMP. Cheli Villa MD [address] [place] [address] [address] Referral ID Status Reason Start Date Expiration Date Visits Requested Visits Authorized [id number] Authorized Auto-Generate d Referral Patient Cleared - Qualified HCAP/501/FA 02/10/2021 05/11/2021 99 99 Reason Comments Us Procedure Specialty Diagnoses / Procedures Referred By Contac t Referred To Contact [facility] NAM[facility] Diagnoses 16 weeks gestation of Encounter for supervision of normal first in second trimester Procedures OBSTETRIC ULTRASOUND WHI US-MATERNAL/ COMP. Cheli Villa MD [address] [place] [address] [address] Reason Onset Date Comments Population Health Navigation Outreach 05/12/2021 ob/peds Reason Onset Date Comments Care 05/12/2021 Specialty Diagnoses / Procedures Referred By Contac t Referred To Contact [employer] Diagnoses OB- PATIENT - 27 WEEKS- Procedures OFFICE VISIT, NEW PT., LEVEL 1 TC OB- PATIENT - 27 WEEKS Cheli Dillard MD [address] [place] [address] [employer] [facility] [address] [place] [address] Referral ID Status Reason Start Date Expiration Date Visits Requested Visits Authorized [id number] Pending Review OON/Self Pay Override Patient Cleared - Qualified HCAP/501/FA 02/25/2021 05/26/2021 99 99 Specialty Diagnoses / Procedures Referred By Contac t Referred To Contact [facility] Department Diagnoses 38 weeks gestation of GDM (gestational diabetes mellitus), class A1 Procedures OBSTETRIC ULTRASOUND WHI US PREG UTERUS AFTER 1ST TRIMEST GESTATION Marcia Beckett APRN.CNM [address] [place] [address] [facility] Dept Referral ID Status Reason Start Date Expiration Date Visits Requested Visits Authorized [id number] Authorized Auto-Generate d Referral Patient Cleared - Qualified 100% FAS 05/12/2021 08/10/2021 99 99 Reason Onset Date Comments Care 05/19/2021 Specialty Diagnoses / Procedures Referred By Contac t Referred To Contact ENDOCRINOLOGY Diagnoses Abnormal maternal glucose tolerance, antepartum Procedures CONSULT TO DIABETES EDUCATION OFFICE/OUTPATIENT [facility] 60-74 MINUTES Cheli Dillard MD [address] [place] [address] [facility] [address] [address] Referral ID Status Reason Start Date Expiration Date Visits Requested Visits Authorized [id number] Authorized Financial Clearance Required - Self Pay [...] Reason Comments PRAF Reason Comments Establish Care Reason Comments Sore Throat Sneezing coughing, p ain with swallowing, hx of strep, unproductive cough, duration 2 days, no interventions Reason Comments Rash On back of arms and ABDStarted 5 days ago Denies any new medication, dietary or hygiene changes prior to the rash started Reason Comments Cough Worse for 3 days sinus congestion Chest Congestion Headache Reason Comments Appointment bleeding in Reason Comments Sore Throat FOR 2 DAYS Nausea & Vomiting Ear Pain RIGHT EAR Fever 100.7 Reason Comments OB- N/V Reason Onset Date Comments Care 07/05/2023 Reason Onset Date Comments Care 07/29/2023 Reason Onset Date Comments Care 08/16/2023 Specialty Diagnoses / Procedures Referred By Contac t Referred To Contact [facility] NAM[facility] Diagnoses with uncertain dates in first trimester Procedures OBSTETRIC ULTRASOUND WHI US PREG UTERUS AFTER 1ST TRIMEST GESTATION Melony Pineda APRN.CNM [address] [place] [address] [address] Referral ID Status Reason Start Date Expiration Date V isits Requested Visits Authorized [id number] Closed Auto-Generate d Referral 06/06/2023 06/05/2024 1 1 Specialty Diagnoses / Procedures Referred By Contac t Referred To Contact [facility] NAM[facility] Diagnoses Dichorionic diamniotic twin in first trimester Procedures OBSTETRIC ULTRASOUND WHI US PREG UTERUS AFTER 1ST TRIMEST GESTATION Harrison Cam MD [address] [place] [address] [address] Referral ID Status Reason Start Date Expiration Date V isits Requested Visits Authorized [id number] Closed Auto-Generate d Referral 08/16/2023 08/15/2024 8 1 Reason Onset Date Comments Care 09/15/2023 Reason Onset Date Comments Care 10/13/2023 Reason Comments Orders Reason Onset Date Comments Care 10/26/2023 Reason Comments Blood Management Reason Comments Results Reason Comments Hematology Appointment Reason Comments Non-Chemotherapy Treatment Specialty Diagnoses / Procedures Referred By Contac t Referred To Contact Diagnoses Maternal iron deficiency anemia complicating , third trimester Procedures IRON SUCROSE INJECTION PER 1 MG Lg Munson MD [address] [place] [address] [facility] [address] [place] [address] Referral ID Status Reason Start Date Expiration Date V isits Requested Visits Authorized [id number] Authorized 10/26/2023 02/07/2024 1 99 Reason Comments Benefits Investigation Reason Onset Date Comments Immunizations 11/10/2023 Flu vaccination Care 11/10/2023 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 M-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 Young attempt # 1 to schedule M-Power consult Specialty Diagnoses / Procedures Referred By Contac t Referred To Contact Diagnoses Gestational diabetes mellitus (GDM), antepartum, gestational diabetes method of control unspecified Procedures CONSULT TO DIABETES EDUCATION DSME MEDICAL NUTRITION ASSMT&IVNTJ INDIV EACH 15 SD MEDICAL NUTRITION ASSMT&IVNTJ INDIV EACH 15 SD MEDICAL NUTRITION ASSMT&IVNTJ INDIV EACH 15 SD MEDICAL NUTRITION ASSMT&IVNTJ INDIV EACH 15 SD Lg Munson MD [address] [place] [address] Referral ID Status Reason Start Date Expiration Date V isits Requested Visits Authorized [id number] Closed PCP Requested Referral 10/28/2023 10/27/2024 1 1 Reason Onset Date Comments Care 11/24/2023 Specialty Diagnoses / Procedures Referred By Contac t Referred To Contact Diagnoses with uncertain dates in first trimester History of gestational diabetes mellitus Forceps or vacuum extractor delivery 8 weeks gestation of Encounter for supervision of high risk in first trimester, antepartum Procedures MPOWER CONSULT Melony Pineda APRN.[facility] [address] [place] [address] Referral ID Status Reason Start Date Expiration Date Visits Requested Visits Authorized [id number] Ref Not Required PCP Requested Referral 06/06/2023 06/05/2024 1 1 Reason Comments Results Reason Onset Date Comments Care 12/08/2023 Reason Onset Date Comments Care 12/15/2023 Reason Onset Date Comments Care 12/22/2023 INFORMATION SOURCE (unrecogn ized section and content) DATE CREATED AUTHOR 06/13/2021 [facility] Rosangela Chirinos DATE CREATED AUTHOR AUTHOR'S ORGANIZ ATION 03/19/2023 [facility] DATE CREATED AUTHOR AUTHOR'S ORGANIZ ATION 07/04/2023 [facility] ([place]) DATE CREATED AUTHOR AUTHOR'S ORGANIZ ATION 10/24/2023 [facility] DATE CREATED AUTHOR AUTHOR'S ORGANIZ ATION 11/12/[address] [facility] DATE CREATED AUTHOR AUTHOR'S ORGANIZ ATION 11/30/2023 [facility] DATE CREATED AUTHOR AUTHOR'S ORGANIZ ATION 12/01/2023 [facility] DATE CREATED AUTHOR AUTHOR'S ORGANIZ ATION 12/08/2023 [facility] DATE CREATED AUTHOR AUTHOR'S ORGANIZ ATION 12/24/2023 [facility] Care Teams (unrecognized sec tion and content) Supervisor Quality Control Relationship Specialty Start Date End Date Katrina Roper, THEATRE ARTS PROFESSOR.PROFESSOR OF PATHOLOGY [address] [place] [address] PCP - General Family Medicine 06/16/22 Supervisor Quality Control Relationship Specialty Start Date End Date Katrina Roper, THEATRE ARTS PROFESSOR.PROFESSOR OF PATHOLOGY [address] [place] [address] PCP - General Family Medicine 06/16/22 Supervisor Quality Control Relationship Specialty Start Date End Date Katrina Roper, THEATRE ARTS PROFESSOR.PROFESSOR OF PATHOLOGY [address] [place] [address] PCP - General Family Medicine 06/16/22 Supervisor Quality Control Relationship Specialty Start Date End Date Katrina Roper, THEATRE ARTS PROFESSOR.PROFESSOR OF PATHOLOGY [address] [place] [address] PCP - General Family Medicine 06/16/22 Supervisor Quality Control Relationship Specialty Start Date End Date Katrina Roper, THEATRE ARTS PROFESSOR.PROFESSOR OF PATHOLOGY [address] [place] [address] PCP - General Family Medicine 06/16/22 Supervisor Quality Control Relationship Specialty Start Date End Date Katrina Roper, THEATRE ARTS PROFESSOR.PROFESSOR OF PATHOLOGY [address] [place] [phone] PCP - General Family Medicine 06/16/22 Supervisor Quality Control Relationship Specialty Start Date End Date Katrina Roper APRN.[facility] [address] [facility] [address] [place] [phone] PCP - General Family Medicine 06/16/22 Supervisor Quality Control Relationship Specialty Start Date End Date Harpreet Shankar MD [address] [place] [address] PCP - General Family Medicine 01/19/23 Supervisor Quality Control Relationship Specialty Start Date End Date Harpreet Shankar MD [address] [place] [address] PCP - General Family Medicine 01/19/23 Supervisor Quality Control Relationship Specialty Start Date End Date Harpreet Shankar MD [address] [place] [address] PCP - General Family Medicine 01/19/23 Supervisor Quality Control Relationship Specialty Start Date End Date Harpreet Shankar MD [address] [place] [address] PCP - General Family Medicine 01/19/23 Supervisor Quality Control Relationship Specialty Start Date End Date Harpreet Shankar MD [address] [place] [address] PCP - General Family Medicine 01/19/23 Supervisor Quality Control Relationship Specialty Start Date End Date Harpreet Shankar MD [address] [place] [address] PCP - General Family Medicine 01/19/23 Supervisor Quality Control Relationship Specialty Start Date End Date Harpreet Shankar MD [address] [place] [address] PCP - General Family Medicine 01/19/23 Supervisor Quality Control Relationship Specialty Start Date End Date Harpreet Shankar MD [address] [place] [address] PCP - General Family Medicine 01/19/23 Supervisor Quality Control Relationship Specialty Start Date End Date Harpreet Shankar MD [address] [place] [address] PCP - General Family Medicine 01/19/23 Supervisor Quality Control Relationship Specialty Start Date End Date Harpreet Shankar MD [address] [place] [address] PCP - General Family Medicine 01/19/23 Supervisor Quality Control Relationship Specialty Start Date End Date Harpreet Shankar MD [address] [place] [address] PCP - General Family Medicine 01/19/23 Supervisor Quality Control Relationship Specialty Start Date End Date Harpreet Shankar MD [facility] [place] [address] PCP - General Family Medicine 01/19/23 Supervisor Quality Control Relationship Specialty Start Date End Date Harpreet Shankar MD [address] [place] [address] PCP - General Family Medicine 01/19/23 Supervisor Quality Control Relationship Specialty [place] [address] [place] [address] PCP - General Family Medicine 01/19/23 Supervisor Quality Control Relationship Specialty Start Date End Date Harpreet Shankar MD [address] [place] [address] PCP - General Family Medicine 01/19/23 Supervisor Quality Control Relationship Specialty Start Date End Date Harpreet Shankar MD [address] [place] [address] PCP - General Family Medicine 01/19/23 Supervisor Quality Control Relationship Specialty Start Date End Date Harpreet Shankar MD [address] [place] [address] PCP - General Family Medicine 01/19/23 Supervisor Quality Control Relationship Specialty Start Date End Date Harpreet Shankar MD [address] [place] [address] PCP - General Family Medicine 01/19/23 Supervisor Quality Control Relationship Specialty Start Date End Date Harpreet Shankar MD [address] [place] [address] PCP - General Family Medicine 01/19/23 Supervisor Quality Control Relationship Specialty Start Date End Date Harpreet Shankar MD [address] [place] [address] PCP - General Family Medicine 01/19/23 Supervisor Quality Control Relationship Specialty Start Date End Date Harpreet Shankar MD [address] [place] [address] PCP - General Family Medicine 01/19/23 Supervisor Quality Control Relationship Specialty Start Date End Date Harpreet Shankar MD [address] [place] [address] PCP - General Family Medicine 01/19/23 Supervisor Quality Control Relationship Specialty Start Date End Date Harpreet Shankar MD [address] [place] [address] PCP - General Family Medicine 01/19/23 Supervisor Quality Control Relationship Specialty Start Date End Date Harpreet Shankar MD [address] [place] [address] PCP - General Family Medicine 01/19/23 Supervisor Quality Control Relationship Specialty Start Date End Date Harpreet Shankar MD [address] [place] [address] PCP - General Family Medicine 01/19/23 Supervisor Quality Control Relationship Specialty Start Date End Date Harpreet Shankar MD [address] [place] [address] PCP - General Family Medicine 01/19/23 Supervisor Quality Control Relationship Specialty Start Date End Date Harpreet Shankar MD [address] [place] [address] PCP - General Family Medicine 01/19/23 Supervisor Quality Control Relationship Specialty Start Date End Date Harpreet Shankar MD [address] [place] [address] PCP - General Family Medicine 01/19/23 Supervisor Quality Control Relationship Specialty Start Date End Date Harpreet Shankar MD [address] [place] [address] PCP - General Family Medicine 01/19/23 Supervisor Quality Control Relationship Specialty Start Date End Date Harpreet Shankar MD [address] [place] [address] PCP - General Family Medicine 01/19/23 Supervisor Quality Control Relationship Specialty Start Date End Date Harpreet Shankar MD [address] [place] [address] PCP - General Family Medicine 01/19/23 Supervisor Quality Control Relationship Specialty Start Date End Date Harpreet Shankar MD [address] [place] [address] PCP - General Family Medicine 01/19/23 Supervisor Quality Control Relationship Specialty Start Date End Date Harpreet Shankar MD [address] [place] [address] PCP - General Family Medicine 01/19/23 Supervisor Quality Control Relationship Specialty Start Date End Date Harpreet Shankar MD [address] [place] [address] PCP - General Family Medicine 01/19/23 Supervisor Quality Control Relationship Specialty Start Date End Date Harpreet Shankar MD [address] [place] [address] PCP - General [facility] Medicine 01/19/23 Supervisor Quality Control Relationship Specialty Start Date End Date Harpreet Shankar MD [address] [place] [address] PCP - [facility] Medicine 01/19/23 Supervisor Quality Control Relationship Specialty Start Date End Date Harpreet Shankar MD [address] [place] [address] PCP - [facility] Medicine 01/19/23 Supervisor Quality Control Relationship Specialty Start Date End Date Harpreet Shankar MD [address] [place] [address] PCP - [facility] Medicine 01/19/23 Supervisor Quality Control Relationship Specialty Start Date End Date Harpreet Shankar MD [address] [place] [address] PCP - [facility] Medicine 01/19/23 Supervisor Quality Control Relationship Specialty Start Date End Date Harpreet Shankar MD [address] [place] [address] PCP - General [facility] Medicine 01/19/23 Camila Power, WENDY.[facility] [address] [place], [place] [address] [facility] 12/19/23 FOR RECORDS PERTAINING TO PATIENTS WHO ARE [...] BE BASED ON THE PRIMARY CLINICAL RECORDS. [facility] [employer] [facility] provides no warranty or guarantee of the accuracy or completeness of information in this document.
--- OUTSIDE RECORDS SUMMARY | 2023-12-30 10:55 | XMS RPT_ITS | CCD ---
Author Organization [facility] Care Team Providers Care 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 Name Role Phone Unavailable Primary Care Provider Unavailankit Roper TROMBONE SLIDE ASSEMBLER.Katrina SAHNI Primary Care Provider PHYSICIAN, NONE Primary [...] PHYSICIAN, PATIENT UNSURE Primary Care Lizzy Power TROMBONE SLIDE ASSEMBLER.Camila SAHNI Unavailable LINH ZIMMERMAN Attending Unavail able SHANKAR, [...] on above: Take 2 capsules by m [facility] three times daily as needed for up to 7 days. Take 1 capsule by mo [facility] three times daily as needed for cough [...] on above: Take 1 capsule by mo [facility] twice daily. ferrous sulfate 325 mg oral tablet (20 sources) Start: 02-23-2023 take 1 tablet by mouth twice daily ferrous sulfate (IRON) 325 mg (65 mg iron) tablet Take 1 tablet by mouth two times a day. 30 tablet 3 02/23/2023 Active ferrous sulfate (IRON ORAL) Take by mouth. 0 Active Comment on above: Take by mouth. Take 1 tablet by [facility] two times a day. Miconazole (1 source) [...] Date: 11/05/22 Status: Ordered polyethylene glycol 3350 11798 mg powder for oral solution (20 sources) [...] oral solution (5 sources) alpha-Adrenergic Agonist, Uncompetitive J-stxljz-G-aspartate Receptor Antagonist, Sigma-1 Agonist Start: 03-19-19 24 [...] Comment on above: Take 1 tablet by [facility] once daily. TAKE 40 MG (4tabs) FOR [...] Facility HISTORY PHYSICALon HISTORY PHYSICAL HNO ID: [id number] Author: LG MUNSON MD Service: ? Author [...] Mean 44.3 mm. Vol 43.580 cm?. Anterior, Zgxc-Ircyx-Vmcvpdl disease Miscarriage 02/2023 depression After late miscarriage-no [...] Decision Making Level: 4 - Moderate Normal [facility] URINE OB DIP B/Oon 4 Glucose Ql (U) Negative Neg mg/dL [facility] Interpretation and review of laboratory results Normal [facility] Protein.monoclonal (U) [Mass/Vol] Negative Neg mg/dL [facility] ROUTINE, GROUP B ST REP PCRon 12-15-2023 ROUTINE, GROUP B STREP PCR GROUP B STREP PCR: Negative for Group B Streptococcus by PCR. Normal [facility] Comment on above: Performed By: #### G BPCR ####[facility] LABCLIA [id number] [place] [address] [place] URINE OB DIP B/Oon Glucose Ql (U) Negative Neg mg/dL [facility] Protein.monoclonal (U) [Mass/Vol] Negative Neg mg/dL [facility] CNOVSPon 12-08-2023 CNOVSP Visit (SP) Office ( EMA) CHELI OSMAN ([id number]) 1995 [address] [facility] Date Time Provider Department 12/08/23 12:00 PM TREATMENT RM 16 [facility] During your visit today, we recorded the following information about you: Temperature Pulse Respiration Blood pressure 97.2 degrees 101/minute 18/minute 110/74 Referring Provider: HARRISON CAM [[id number]] Allergies As of Date: 12/08/2023 (No Known Allergies) Date Reviewed: 12/08/2023 Reviewed by: Leila Green, RN - Fully Assessed Reason for Visit: Non-Chemotherapy Treatment [795] Primary Visit Diagnosis:Maternal iron deficiency anemia complicating , third trimester [O99.013, D50.9] Order(s):BCN NURSING COMMUNICATION [[id number]] Order #: [id number]: 1 STANDING [] iron sucrose 200 mg injection (VENOFER)Disp: Rfl: NaCl 0.9% iv infusionDisp: Rfl: diphenhydrAMINE 50 mg injection (BENADRYL)Disp: Rfl: hydrocortisone sodium succinate (PF) 100 mg injection (Solu-CORTEF)Disp: Rfl: EPINEPHrine HCl (PF) 1 mg/mL (1 mL) 0.3 mg injectionDisp: Rfl: TOM NURSING COMMUNICATION [[id number]] Order #: [id number]: 1 STANDING Prescriptions as of 12/08/2023 - [...] vomiting during [O21.9] 11/13/2020 02/11/2023 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.] Encounter Status:Closed by [facility]OR[facility] BR[facility] (OBGYWM) CHELI OSMAN ([id number]) 1995 [facility] Date Time Provider Department 12/01/23 HARRISON CAM [...] vomiting during [O21.9] 11/13/2020 02/11/2023 History of Eoep-Ipjeh-Txnqbua 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] 11/13/2020 Encounter for supervision of [...] Encounter Status:Closed by LAISHA MARSH on 12/01/23 [facility] NURSING PROGon 11-30-2023 NURSING PROG HNO ID: [id number] Author: MYA MELO, JARETH Service: Nursing Author Type: Registered Nurse Type: Nursing Progress Note Filed: 11/30/2023 12:38 Note Text: Summary: M-Power M-Power Java Scala Developer Note Hospital Name: [place] Completed by: Mya Melo RN Date: November 30, 2023 [employer] Resource Time: 2.5 hours: Primary Referral Code: A Phone consult Cheli Osman [phone] Preferred Name: Bibiana OB Provider: Harrison Cam [...] not visit her in the hospital. Normal [facility] EPO SerPl-aCncon 11-28-2023 Erythropoietin (EPO) Qn 29.5 mIU/mL High 2.6-18.5 [facility] Comment on above: Order Comment: Herman granados Type: BLOOD SPECIMENOrdering Facility: [facility] Address: [address] [place] [address] Performed By: #### 1 5061-5 ####[facility] LABCLIA [id number] [place] [address] [place] Ferritin SerPl-mCncon 2023 Ferritin [Mass/Vol] 78.5 ng/mL Normal 8.0-307.0 [facility] Comment on above: Order Comment: Herman granados Type: BLOOD SPECIMENOrdering Facility: [facility] Address: [address] [place] [address] Performed By: #### 5 0190-8, 2276-4, 2132-9 ####[facility] LABORATORYCLIA [id number] [place] [address] [place] Folate SerPl-mCncon 11-28-19 Folate [Mass/Vol] 19.3 ng/mL Normal >3.0 [facility] Comment on above: Order Comment: Herman granados Type: BLOOD SPECIMENOrdering Facility: [facility] Address: [address] [place] [address] Performed By: #### 2 284-8 ####[facility] LABORATORYCLIA [id number] [place] [address] [place] Iron and Iron binding capaci ty panelon 11-28-2023 Iron [Mass/Vol] 89 ug/dL Normal 50-170 [facility] Comment on above: Order Comment: Nickii men Type: BLOOD SPECIMENOrdering Facility: [facility] Address: [address] [place] [address] Result Comment: Gissel ents treated with metal-binding drugs (e.g.deferoxamine) may have depressed iron values, as chelated iron may not properly react in the Siemens iron assay. Performed By: #### 5 0190-8, 2275-05, 2131-10 ####[facility] LABORATORYCLIA [id number] [place] [id number] [place] Iron binding capacity [Mass/Vol] 455 ug/dL Normal 221-481 [facility] Comment on above: Order Comment: Speci men Type: BLOOD SPECIMENOrdering Facility: [facility] Address: [address] [place] [address] Performed By: #### 5 0190-8, 2275-05, 2131-10 ####[facility] LABORATORYCLIA [id number] [place] [address] [place] Iron/TIBC [Molar ratio] 19.6 % Low 22.0-44.0 [facility] Comment on above: Order Comment: Speci men Type: BLOOD SPECIMENOrdering Facility: [facility] Address: [address] [place] [address] Performed By: #### 5 0190-8, 2275-05, 2131-10 ####[facility] LABORATORYCLIA [id number] [place] [address] [place] Methylmalonate SerPl-sCncon 11-28-2023 Methylmalonate [Moles/Vol] 0.30 umol/L Normal <=0.40 [facility] Comment on above: Order Comment: Speci [facility] Type: BLOOD SPECIMENOrdering Facility: [facility] Address: [address] [place] [address] Result Comment: This test was developed, and its performance characteristics determined by the [facility] Department of Pathology and Laboratory Medicine. It has not been cleared or approved by the FDA. The [facility] Department of Pathology and Laboratory Medicine is regulated under CLIA as qualified to perform high-complexity testing. This test is used for clinical purposes. It should not be regarded as investigational or for research. Performed By: #### 1 3964-2 ####[facility] LABCLIA [id number] [facility] [place] [address] [place] Retics #on 10-21-2024 Reticulocytes (Bld) [#/Vol] 0.77702 10*3/uL Normal 0.018-0.100 [facility] Comment on above: Order Comment: Herman granados Type: BLOOD SPECIMENOrdering Facility: [facility] Address: [address] [place] [address] Performed By: #### 1 4196-0 ####[facility] LABORATORYCLIA [id number] [place] [id number] [facility] Reticulocytes (Bld) [#/Vol]o n 11-28-2023 Reticulocytes/100 RBC (Bld) 2.6 % High 0.4-2.0 [facility] Comment on above: Order Comment: Herman granados Type: BLOOD SPECIMENOrdering Facility: [facility] Address: [address] [place] [address] Performed By: #### 1 4196-0 ####[facility] LABORATORYCLIA [id number] [address] VITAMIN B6/PYRIDOXINon 11-27 VITAMIN B6 16.0 nmol/L Low 20.0-125.0 [facility] Comment on above: Order Comment: Herman granados Type: BLOOD SPECIMENOrdering Facility: [facility] Address: [address] [place] [address] Result Comment: INTE RPRETIVE INFORMATION: Vitamin B6 (Pyridoxal 5-Phosphate) Pyridoxal 5'-phosphate measured in a specimen collected following an 8-hour or overnight fast accurately indicates vitamin B6 nutritional status. Non-fasting specimen concentration reflects recent vitamin intake. This test was developed and its performance characteristics determined by [facility]. It has not been cleared or approved by the US Food and Drug Administration. This test was performed in a CLIA certified laboratory and is intended for clinical purposes. Performed By: [facility] [address] [place] [address] Sheet Rock Applicator: Beka Blankenship MD, PhD CLIA Number: [id number] Performed By: #### V ITB6 ####[facility] LABORATORIESIA [id number] [place] [id number] Vit B12 SerPl-mCncon 10-21-2 024 Cobalamin (Vitamin B12) [Mass/Vol] 343 pg/mL Normal 193-986 [facility] Comment on above: Order Comment: Speci men Type: BLOOD SPECIMENOrdering Facility: [facility] Address: [address] [place] [address] Performed By: #### 5 0190-8, 2276-4, 2132-9 ####[facility] LABORATORYCLIA [id number] [address] OF [facility] CBC panel Auto (Bld)on 11-23 Erythrocyte distribution width (RBC) [Ratio] 15.1 % High 11.5 - 15.0 % [facility] Hematocrit (Bld) [Volume fraction] 31.7 % Low 36.0 - 46.0 % [facility] Hemoglobin (Bld) [Mass/Vol] 10.1 g/dL Low 11.5 - 15.5 g/dL [facility] Interpretation and review of laboratory results Abnormal [facility] MCH (RBC) [Entitic mass] 28.5 pg 26.0 - 34.0 pg [facility] MCHC (RBC) [Mass/Vol] 31.9 g/dL 30.5 - 36.0 g/dL [facility] MCV (RBC) [Entitic vol] 89.3 fL 80.0 - 100.0 fL [facility] Nucleated RBC (Bld) [#/Vol] NINF [facility] Platelet mean volume (Bld) [Entitic vol] 10.5 fL 9.0 - 12.7 fL [facility] Platelets (Bld) [#/Vol] 129 10*3/uL Low [facility] RBC (Bld) [#/Vol] 3.55 10*6/uL Low 3.90 - 5.2 0 m/uL [facility] WBC (Bld) [#/Vol] 7.10 10*3/uL [facility] Erythrocyte distribution width (RBC) [Ratio] 15.1 % High 11.5-15.0 [facility] Comment on above: Order Comment: Speci men Type: BLOOD SPECIMENOrdering Facility: [facility] Address: [address] [place] [address] Performed By: #### 5 8410-2 ####[facility] SUNIWNCLIA [id number] [place] [address] [place] Hematocrit (Bld) [Volume fraction] 31.7 % Low 36.0-46.0 [facility] Comment on above: Order Comment: Speci men Type: BLOOD SPECIMENOrdering Facility: [facility] Address: [address] [place] [address] Performed By: #### 5 8410-2 ####[facility] HOSPITALAMELIELIA [id number] [place] [address] [place] Hemoglobin (Bld) [Mass/Vol] 10.1 g/dL Low 11.5-15.5 [facility] Comment on above: Order Comment: Speci men Type: BLOOD SPECIMENOrdering Facility: [facility] Address: [address] [place] [address] Performed By: #### 5 8410-2 ####[facility] HOSPITALAMELIELIAmanda [id number] [place] [address] [place] MCH (RBC) [Entitic mass] 28.5 pg Normal 26.0-34.0 [facility] Comment on above: Order Comment: Speci men Type: BLOOD SPECIMENOrdering Facility: [facility] Address: [address] [place] [address] Performed By: #### 5 8410-2 ####[facility] HOSPITALCHINAA [id number] [place] [address] [place] MCHC (RBC) [Mass/Vol] 31.9 g/dL Normal 30.5-36.0 [facility] Comment on above: Order Comment: Speci men Type: BLOOD SPECIMENOrdering Facility: [facility] Address: [address] [place] [address] Performed By: #### 5 8410-2 ####[facility] HOS[facility]ITALNCLIA [id number] [place] [address] [place] MCV (RBC) [Entitic vol] 89.3 fL Normal 80.0-100.0 [facility] Comment on above: Order Comment: Speci men Type: BLOOD SPECIMENOrdering Facility: [facility] Address: [address] [place] [address] Performed By: #### 5 8410-2 ####[facility] HOSPITALNCSANPETE VALLEY [facility] [id number] [place] [address] [place] Nucleated RBC (Bld) [#/Vol] 10*3/uL Normal <0.01 [facility] Comment on above: Order Comment: Speci men Type: BLOOD SPECIMENOrdering Facility: [facility] Address: [address] [place] [address] Performed By: #### 5 8410-2 ####[facility] HOSPITALNCSANPETE VALLEY [facility] [id number] [place] [address] [place] Platelet mean volume (Bld) [Entitic vol] 10.5 fL Normal 9.0-12.7 [facility] Comment on above: Order Comment: Speci men Type: BLOOD SPECIMENOrdering Facility: [facility] Address: [address] [place] [address] Performed By: #### 5 8410-2 ####[facility]OL[facility] HOSPITALLIA [id number] [place] [address] [place] Platelets (Bld) [#/Vol] 129 10*3/uL Low 150-400 [facility] Comment on above: Order Comment: Speci men Type: BLOOD SPECIMENOrdering Facility: [facility] Address: [address] [place] [address] Performed By: #### 5 8410-2 ####[facility] HOSPITALNCLIA [id number] [place] [address] [place] RBC (Bld) [#/Vol] 3.55 10*6/uL Low 3.90-5.20 [facility] Comment on above: Order Comment: Speci men Type: BLOOD SPECIMENOrdering Facility: [facility] Address: [address] [place] [address] Performed By: #### 5 8410-2 ####[facility] MISTY SANTIAGONCLIA [id number] [place] [address] [place] WBC (Bld) [#/Vol] 7.10 10*3/uL Normal 3.70-11.00 [facility] Comment on above: Order Comment: Speci men Type: BLOOD SPECIMENOrdering Facility: [facility] Address: [address] [place] [address] Performed By: #### 5 8410-2 ####[facility] MISTY SUNICRANDALLNCLIA [id number] [place] [address] [place] URINE OB DIP B/Oon Glucose Ql (U) Negative Neg mg/dL [facility] Interpretation and review of laboratory results Normal [facility] Protein.monoclonal (U) [Mass/Vol] Negative Neg mg/dL [facility] CNPNon 11-23-2023 CNPN Telephone (OBGYWM) CHELI OSMAN ([id number]) 1995 [address] [facility] Date Time Provider Department 11/23/23 LINH [...] vomiting during [O21.9] 11/13/2020 02/11/2023 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] 11/13/2020 Encounter for supervision of [...] Status:Closed by SANCHEZ MUSTAFA on 11/23/23 Normal [facility] CNNURSEon 11-15-2023 [facility] Nurse Visit (ENDIMT) CHELI OSMAN ([id number]) 1995 [facility] Date Time Provider Department 11/15/23 9:00 AM SARAH PALUMBO During your visit today, we recorded the following information about you: Sarah Palumbo, RN 11/15/2023 9:33 AM Signed DIABETES SELF-MANAGEMENT EDUCATION AND SUPPORT Location: [place] Type of visit: Virtual (with video) individual I have communicated my name and active licensure. The patient's identity and physical location were verified at the time of this visit. Either the patient or their legal sales representative public utilities has been informed of the risks and [...] Race/Ethnic Origin: White/ Does you culture or yazidism require any of the following: No cultural/sikhism practices affecting DM Do you have problems [...] Mean 44.3 mm. Vol 43.580 cm?. Anterior, Esze-Cigfm-Scqiafr disease Miscarriage 02/2023 depression After late miscarriage-no [...] for t (more content not included)... Normal [facility] Examination level ultrasound on 11-13-2023 [facility] CNOVSPon 11-10-2023 CNOVSP Visit (SP) Office (H EMAWS) CHELI OSMAN ([id number]) 1995 [address] [facility] Date Time Provider Department 11/10/23 2:30 PM TREATMENT RM 14 [facility] During your visit today, we recorded the following information about you: Temperature Pulse Blood pressure 97.4 degrees 103/minute 111/70 Referring Provider: LG MUNSON [[id number]] Allergies As of Date: 11/10/2023 (No Known Allergies) Date Reviewed: 11/10/2023 Reviewed by: Heather Hanson MA - Fully Assessed Reason for Visit: Non-Chemotherapy Treatment [795] Primary Visit Diagnosis:Maternal iron deficiency anemia complicating , third trimester [O99.013, D50.9] Order(s):BCN NURSING COMMUNICATION [[id number]] Order #: [id number]: 1 STANDING [] iron sucrose iv piggyback 200 mg in NaCl 0.9% 100 mL (VENOFER)Disp: Rfl: NaCl 0.9% iv infusionDisp: Rfl: diphenhydrAMINE 50 mg injection (BENADRYL)Disp: Rfl: hydrocortisone sodium succinate (PF) 100 mg injection (Solu-CORTEF)Disp: Rfl: EPINEPHrine HCl (PF) 1 mg/mL (1 mL) 0.3 mg injectionDisp: Rfl: TOM NURSING COMMUNICATION [[id number]] Order #: [id number]: 1 STANDING Prescriptions as of 11/10/2023 - [...] vomiting during [O21.9] 11/13/2020 02/11/2023 History of Vujs-Kzfdw-Lwwgaym 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..] vomiting during [O21.9] 11/13/2020 02/11/2023 History of Iked-Ljpke-Hqawzog 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] 11/13/2020 Encounter for supervision of [...] Status:Closed by MYA MELO on 11/10/23 Normal [facility] Examination level ultrasound on 11-10-2023 Radiology Study observation (narrative) [facility] URINE OB DIP B/Oon Glucose Ql (U) Negative Neg mg/dL [facility] Interpretation and review of laboratory results Normal [facility] Protein.monoclonal (U) [Mass/Vol] Negative Neg mg/dL [facility] CNOVSPon 11-08-2023 CNOVSP Visit (SP) Office (H EMAWS) CHELI OSMAN ([id number]) 1995 [address] [facility] Date Time Provider Department 11/08/23 3:30 PM TREATMENT RM 14 [facility] During your visit today, we recorded the following information about you: Temperature Pulse Respiration Blood pressure 97.9 degrees 93/minute 18/minute 106/70 Referring Provider: LG MUNSON [[id number]] Allergies As of Date: 11/08/2023 (No Known Allergies) Date Reviewed: 11/08/2023 Reviewed by: Sarina Flores, JARETH - Fully Assessed Reason for Visit: Non-Chemotherapy Treatment [795] Primary Visit Diagnosis:Maternal iron deficiency anemia complicating , third trimester [O99.013, D50.9] Order(s):N NURSING COMMUNICATION [[id number]] Order #: [id number]: 1 STANDING [] iron sucrose iv piggyback 200 mg in NaCl 0.9% 100 mL (VENOFER)Disp: Rfl: NaCl 0.9% iv infusionDisp: Rfl: diphenhydrAMINE 50 mg injection (BENADRYL)Disp: Rfl: hydrocortisone sodium succinate (PF) 100 mg injection (Solu-CORTEF)Disp: Rfl: EPINEPHrine HCl (PF) 1 mg/mL (1 mL) 0.3 mg injectionDisp: Rfl: BCN NURSING COMMUNICATION [[id number]] Order #: [id number]: 1 STANDING Prescriptions as of 11/08/2023 - [...] vomiting during [O21.9] 11/13/2020 02/11/2023 History of Uics-Qesdm-Xekculf 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] 11/13/2020 Encounter for supervision of [...] Status:Closed by SARINA FLORES on 11/08/23 Normal [facility] Freddie 11-04-2023 CNPN Telephone (PFS) CHELI OSMAN ([id number]) 1995 [address] [facility] Date Time Provider Department 11/04/23 FINANCIAL [...] vomiting during [O21.9] 11/13/2020 02/11/2023 History of Ndet-Hnnov-Axnqmza 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] 11/13/2020 Encounter for supervision of [...] Status:Closed by JOHNSON CAIN on 11/04/23 Normal [facility] CNOVSPon 11-03-2023 CNOVSP Visit (SP) Office (H EMAWS) CHELI OSMAN ([id number]) 1995 [address] [facility] Date Time Provider Department 11/03/23 10:00 AM TREATMENT RM 17 [facility] During your visit today, we recorded the following information about you: Temperature Pulse Blood pressure 97.4 degrees 92/minute 105/66 Referring Provider: LG MUNSON [[id number]] Allergies As of Date: 11/03/2023 (No Known Allergies) Date Reviewed: 11/03/2023 Reviewed by: Carissa Sanchez RN - Fully Assessed Reason for Visit: Non-Chemotherapy Treatment [795] Primary Visit Diagnosis:Maternal iron deficiency anemia complicating , third trimester [O99.013, D50.9] Order(s):[facility] NURSING COMMUNICATION [[id number]] Order #: [id number]: 1 STANDING [] iron sucrose iv piggyback 200 mg in NaCl 0.9% 100 mL (VENOFER)Disp: Rfl: NaCl 0.9% iv infusionDisp: Rfl: diphenhydrAMINE 50 mg injection (BENADRYL)Disp: Rfl: hydrocortisone sodium succinate (PF) 100 mg injection (Solu-CORTEF)Disp: Rfl: EPINEPHrine HCl (PF) 1 mg/mL (1 mL) 0.3 mg injectionDisp: Rfl: N NURSING COMMUNICATION [[id number]] Order #: [id number]: 1 STANDING Prescriptions as of 11/03/2023 - [...] vomiting during [O21.9] 11/13/2020 02/11/2023 History of Maek-Dflkx-Qduqhiy 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] 11/13/2020 Encounter for supervision of [...] gestational diabetes mellitus (*10/28/2023 Encounter Status:Closed by CARISSA SANCHEZ on [facility]/03/23 [facility] Tele[facility] (INTMMN) CHELI OSMAN ([id number]) 1995 [facility] Date Time Provider Department 10/31/23 LEONORA CHAPMAN [...] vomiting during [O21.9] 11/13/2020 02/11/2023 History of Yzgn-Imlkf-Cipnjhy 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] 11/13/2020 Encounter for supervision of [...] Encounter Status:Closed by LEONORA BROWN on 10/31/23 [facility] Freddie 10-28-2023 [facility] Telephone (OBGYWM) CHELI OSMAN ([id number]) 1995 [facility] Date Time Provider Department 10/28/23 LG [...] EachRfl: 8 CONSULT TO DIABETES EDUCATION DSME [[id number]] Order #: [id number]: 2 FUTURE CONSULT TO NUTRITION THERAPY [9020] Order #: [id number]: 4 FUTURE Prescriptions as of 10/28/2023 - [...] vomiting during [O21.9] 11/13/2020 02/11/2023 History of Lwot-Neimx-Qnqcmny 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] 11/13/2020 Encounter for supervision of [...] Encounter N (more content not included)... Normal [facility] CNPNon 10-27-2023 CNPN Telephone (OGFVWE) CHELI OSMAN ([id number]) 1995 [facility] Date Time Provider Department 10/27/23 NURSE SCREWHEAD POLISHER [facility]ST OGFVWE During your visit today, we recorded the following information about you: Kt Abdalla RN 10/27/2023 9:39 AM Signed 3rd risk assessment form submitted 10/27/23 Kt Abdalla RN Allergies As of Date: 10/27/2023 (No Known Allergies) Date Reviewed: 10/26/2023 Reviewed by: Mc Kenna, Leonora, RN - Fully Assessed Reason for Visit: PRAF [5037] Prescriptions as of 10/27/2023 - pyridoxine HCl, [...] vomiting during [O21.9] 11/13/2020 02/11/2023 History of Mexc-Bloqx-Urqefxk 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] 11/13/2020 Encounter for supervision of [...] Status:Closed by KT ABDALLA on 10/27/23 Normal [facility] GLUCOSE GESTATIONAL, 1 HOURo n 10-26-2023 Glucose 1 Hr post Unsp challenge [Mass/Vol] 214 mg/dL High 74-179 [facility] Comment on above: Order Comment: Speci men Type: BLOOD SPECIMENOrdering Facility: [facility] Address: [address] [place] [address] Result Comment: [facility] Congress of Obstetricians and Gynecologists (Lou/Pilar) guidelines state gestational diabetes mellitus is present when 2 or more of the plasma glucose concentrations meet or exceed the following levels: fastin mg/dl, 1 hr: 180 mg/dl, 2 hr: 155 mg/dl, and 3 hr: 140 mg/dl. Performed By: #### G TGST1 ####[facility] MISTYSOUTHWESTERN VER[facility] CENTERZEHRA [id number] [place] [address] [place] GLUCOSE GESTATIONAL, 2 HOURo n 10-26-2023 Glucose 2 Hr post Unsp challenge [Mass/Vol] 179 mg/dL High 74-154 [facility] Comment on above: Order Comment: Speci roberta Type: BLOOD SPECIMENOrdering Facility: [facility] Address: [address] [place] [address] Result Comment: [facility] Congress of Obstetricians and Gynecologists (Lou/Tonyaan) guidelines state gestational diabetes mellitus is present when 2 or more of the plasma glucose concentrations meet or exceed the following levels: fastin mg/dl, 1 hr: 180 mg/dl, 2 hr: 155 mg/dl, and 3 hr: 140 mg/dl. Performed By: #### G TGST2 ####[facility] [id number] [place] [address] [place] GLUCOSE GESTATIONAL, 3 HOURo n 10-26-2023 Glucose 3 Hr post Unsp challenge [Mass/Vol] 113 mg/dL Normal 74-139 [facility] Comment on above: Order Comment: Speci roberta Type: BLOOD SPECIMENOrdering Facility: [facility] Address: [address] [place] [address] Result Comment: [facility] Congress of Obstetricians and Gynecologists (Lou/Pilar) guidelines state gestational diabetes mellitus is present when 2 or more of the plasma glucose concentrations meet or exceed the following levels: fastin mg/dl, 1 hr: 180 mg/dl, 2 hr: 155 mg/dl, and 3 hr: 140 mg/dl. Performed By: #### G TGST3 ####[facility] [id number] [place] [address] [place] GLUCOSE GESTATIONAL, FASTING on 10-26-2023 Glucose post fast [Mass/Vol] 85 mg/dL Normal 74-94 [facility] Comment on above: Order Comment: [facility] Type: BLOOD SPECIMENOrdering Facility: [facility] Address: [address] [place] [address] Result Comment: [facility] Congress of Obstetricians and Gynecologists (Blake/Casistan) guidelines state gestational diabetes mellitus is present when 2 or more of the plasma glucose concentrations meet or exceed the following levels: fastin mg/dl, 1 hr: 180 mg/dl, 2 hr: 155 mg/dl, and 3 hr: 140 mg/dl. Performed By: #### G TGSTF ####[facility] [id number] [place] [address] [place] Ferritin SerPl-mCncon 2023 Ferritin [Mass/Vol] 26.2 ng/mL Normal 14.7-205.1 [facility] Comment on above: Order Comment: Speci men Type: BLOOD SPECIMEN [facility] Facility: [facility] Address: [address] [place] [address] Performed By: #### 5 0190-8, 2275-4 #### [facility] CLIA [id number] [address] [place] [address] [place] Iron and Iron binding capaci ty panelon 10-22-2023 Iron [Mass/Vol] 71 ug/dL Normal 41-186 [facility] Comment on above: Order Comment: Speci men Type: BLOOD SPECIMEN [facility]: [facility] Address: [address] [place] [address] Performed By: #### 5 0190-8, 2275- #### [facility] CLIA [id number] [address] [place] [address] [place] Iron binding capacity [Mass/Vol] 431 ug/dL High 232-386 [facility] Comment on above: Order Comment: Speci men Type: BLOOD SPECIMEN [facility]: [facility] Address: [address] [place] [address] Performed By: #### 5 0190-8, 2275-05 #### [facility] CLIA [id number] [address] [place] [address] [place] Iron/TIBC [Molar ratio] 16.5 % Normal 15.0-57.0 [facility] Comment on above: Order Comment: Speci men Type: BLOOD SPECIMEN [facility]: [facility] Address: [address] [place] [address] Performed By: #### 5 0190-8, 2275- #### [facility] CLIA [id number] [address] [place] [address] OF [facility] CNPRicarda 10-14-2023 CNPN Telephone (OBGYWM) CHELI OSMAN ([id number]) 1995 [facility] Date Time Provider Department 10/14/23 LG MUNSON [...] 3-HR, 100 GM, FASTING [SQGTGST3] Order #: [id number] FUTURE IRON AND TIBC [SQIRON] Order #: [id number] FUTURE FERRITIN [SQFERR] Order #: [id number] FUTURE BLOOD MANAGEMENT REFERRAL [5611465] Order #: [id number]: 1 Prescriptions as of 10/17/2023 - pyridoxine [...] vomiting during [O21.9] 11/13/2020 02/11/2023 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] 11/13/2020 Encounter for supervision of [...] Status:Closed by LG MUNSON on 10/14/23 Normal [facility] CBC W Auto Differential pane l (Bld)on 10-13-2023 Basophils (Bld) [#/Vol] 10*3/uL Normal <0.11 [facility] Comment on above: Order Comment: Speci men Type: BLOOD SPECIMENOrdering Facility: [facility] Address: [address] [place] [address] Performed By: #### 5 7021-8 ####[facility] MISTY NUNES [id number] [place] [address] [place] Basophils/100 WBC (Bld) 0.2 % Normal [facility] Comment on above: Order Comment: Speci men Type: BLOOD SPECIMENOrdering Facility: [facility] Address: [address] [place] [address] Performed By: #### 5 7021-8 ####[facility] [id number] [place] [address] [place] Differential cell count method Nom (Bld) Auto Normal [facility] Comment on above: Order Comment: Speci men Type: BLOOD SPECIMENOrdering Facility: [facility] Address: [address] [place] [address] Performed By: #### 5 7021-8 ####[facility]ITALNCLI [id number] [place] [address] [place] Eosinophils (Bld) [#/Vol] 0.16 10*3/uL Normal <0.46 [facility] Comment on above: Order Comment: Speci men Type: BLOOD SPECIMENOrdering Facility: [facility] Address: [address] [place] [address] Performed By: #### 5 7021-8 ####[facility] [id number] [place] [address] [place] Eosinophils/100 WBC (Bld) 1.8 % Normal [facility] Comment on above: Order Comment: Speci men Type: BLOOD SPECIMENOrdering Facility: [facility] Address: [address] [place] [address] Performed By: #### 5 7021-8 ####[facility] [id number] [place] [address] [place] Erythrocyte distribution width (RBC) [Ratio] 14.6 % Normal 11.5-15.0 [facility] Comment on above: Order Comment: Speci men Type: BLOOD SPECIMENOrdering Facility: [facility] Address: [address] [place] [address] Performed By: #### 5 7021-8 ####[facility] SUNICRANDALLZEHRA [id number] [place] [address] [place] Hematocrit (Bld) [Volume fraction] 30.1 % Low 36.0-46.0 [facility] Comment on above: Order Comment: Speci men Type: BLOOD SPECIMENOrdering Facility: [facility] Address: [address] [place] [address] Performed By: #### 5 7021-8 ####[facility]ITALNCS[facility] [id number] [place] [address] [place] Hemoglobin (Bld) [Mass/Vol] 10.2 g/dL Low 11.5-15.5 [facility] Comment on above: Order Comment: Speci men Type: BLOOD SPECIMENOrdering Facility: [facility] Address: [address] [place] [address] Performed By: #### 5 7021-8 ####[facility] [id number] [place] [address] [place] Immature granulocytes (Bld) [#/Vol] 0.11 10*3/uL High <0.10 [facility] Comment on above: Order Comment: Speci men Type: BLOOD SPECIMENOrdering Facility: [facility] Address: [address] [place] [address] Performed By: #### 5 7021-8 ####[facility]ITALNCLIA [id number] [place] [address] [place] Immature granulocytes/100 WBC (Bld) 1.2 % Normal [facility] Comment on above: Order Comment: Speci men Type: BLOOD SPECIMENOrdering Facility: [facility] Address: [address] [place] [address] Performed By: #### 5 7021-8 ####[facility] MILLWNCLIA [id number] [place] [address] [place] Lymphocytes (Bld) [#/Vol] 1.60 10*3/uL Normal 1.00-4.00 [facility] Comment on above: Order Comment: Speci men Type: BLOOD SPECIMENOrdering Facility: [facility] Address: [address] [place] [address] Performed By: #### 5 7021-8 ####[facility] [id number] [place] [address] [place] Lymphocytes/100 WBC (Bld) 17.8 % Normal [facility] Comment on above: Order Comment: Speci men Type: BLOOD SPECIMENOrdering Facility: [facility] Address: [address] [place] [address] Performed By: #### 5 7021-8 ####[facility]IT[facility] [id number] [place] [address] [place] MCH (RBC) [Entitic mass] 30.1 pg Normal 26.0-34.0 [facility] Comment on above: Order Comment: Speci men Type: BLOOD SPECIMENOrdering Facility: [facility] Address: [address] [place] [address] Performed By: #### 5 7021-8 ####[facility]IT[facility] [id number] [place] [address] [place] MCHC (RBC) [Mass/Vol] 33.9 g/dL Normal 30.5-36.0 [facility] Comment on above: Order Comment: Speci men Type: BLOOD SPECIMENOrdering Facility: [facility] Address: [address] [place] [address] Performed By: #### 5 7021-8 ####[facility]ITALNCLIA [id number] [place] [address] [place] MCV (RBC) [Entitic vol] 88.8 fL Normal 80.0-100.0 [facility] Comment on above: Order Comment: Speci men Type: BLOOD SPECIMENOrdering Facility: [facility] Address: [address] [place] [address] Performed By: #### 5 7021-8 ####[facility] [id number] [place] [address] [place] Monocytes (Bld) [#/Vol] 0.45 10*3/uL Normal <0.87 [facility] Comment on above: Order Comment: Speci men Type: BLOOD SPECIMENOrdering Facility: [facility] Address: [address] [place] [address] Performed By: #### 5 7021-8 ####[facility] [id number] [place] [address] [place] Monocytes/100 WBC (Bld) 5.0 % Normal [facility] Comment on above: Order Comment: Speci men Type: BLOOD SPECIMENOrdering Facility: [facility] Address: [address] [place] [address] Performed By: #### 5 7021-8 ####[facility] [id number] [place] [address] [place] Neutrophils (Bld) [#/Vol] 6.63 10*3/uL Normal 1.45-7.50 [facility] Comment on above: Order Comment: Speci men Type: BLOOD SPECIMENOrdering Facility: [facility] Address: [address] [place] [address] Performed By: #### 5 7021-8 ####[facility] [id number] [place] [address] [place] Neutrophils/100 WBC (Bld) 74.0 % Normal [facility] Comment on above: Order Comment: Speci men Type: BLOOD SPECIMENOrdering Facility: [facility] Address: [address] [place] [address] Performed By: #### 5 7021-8 ####[facility]OSPITALCHINA [id number] [place] [address] [place] Nucleated RBC (Bld) [#/Vol] 10*3/uL Normal <0.01 [facility] Comment on above: Order Comment: Speci men Type: BLOOD SPECIMENOrdering Facility: [facility] Address: [address] [place] [address] Performed By: #### 5 7021-8 ####[facility]ITALNCS[facility] [id number] [place] [address] [place] Nucleated RBC/100 WBC (Bld) [Ratio] 0.0 /100 WBC Normal [facility] Comment on above: Order Comment: Speci men Type: BLOOD SPECIMENOrdering Facility: [facility] Address: [address] [place] [address] Performed By: #### 5 7021-8 ####[facility] HOSPITALA [id number] [place] [address] [place] Platelet mean volume (Bld) [Entitic vol] 9.4 fL Normal 9.0-12.7 [facility] Comment on above: Order Comment: Speci men Type: BLOOD SPECIMENOrdering Facility: [facility] Address: [address] [place] [address] Performed By: #### 5 7021-8 ####[facility]IT[facility] [id number] [place] [address] [place] Platelets (Bld) [#/Vol] 145 10*3/uL Low 150-400 [facility] Comment on above: Order Comment: Speci men Type: BLOOD SPECIMENOrdering Facility: [facility] Address: [address] [place] [address] Performed By: #### 5 7021-8 ####[facility]ITALNCLIA [id number] [place] [address] [place] RBC (Bld) [#/Vol] 3.39 10*6/uL Low 3.90-5.20 [facility] Comment on above: Order Comment: Speci men Type: BLOOD SPECIMENOrdering Facility: [facility] Address: [address] [place] [address] Performed By: #### 5 7021-8 ####[facility]OSPITALNCA [id number] [place] [address] [place] WBC (Bld) [#/Vol] 8.97 10*3/uL Normal 3.70-11.00 [facility] Comment on above: Order Comment: Speci men Type: BLOOD SPECIMENOrdering Facility: [facility] Address: [address] [place] [address] Performed By: #### 5 7021-8 ####[facility] HOSPITALA [id number] [place] [address] [place] Examination level ultrasound on 10-13-2023 [facility] Radiology Study observation (narrative) [facility] GESTATIONAL GLUCOSE SCREEN, 1-HOUR, 50 GRAM, NON-FASTINGon 10-13-2023 Glucose [Mass/Vol] 151 mg/dL High 74-134 [facility] Comment on above: Order Comment: Speci men Type: BLOOD SPECIMENOrdering Facility: [facility] Address: [address] [place], [place] [id number] Result Comment: [facility] Congress of Obstetricians and Gynecologists (Lou/Pilar) guidelines state a gestational diabetes mellitus positive screen is made, in women not previously diagnosed with overt diabetes, when the 1 hr plasma glucose level is equal to or above 140 mg/dL. The [facility] [employer] [place] recommends a 135 mg/dL cutoff. Performed By: #### G LTGST ####[facility] [id number] [place] [address] [place] Reagin and Treponema pallidu m IgG and IgM [Interp]on 10-13-2023 T. pallidum IgG+IgM IA Ql (S) Non-Reactive Normal Nonreactive [facility] Comment on above: Order Comment: Speci men Type: BLOOD SPECIMENOrdering Facility: [facility] Address: [address] [place] [address] Performed By: #### 7 3752-8 ####[facility] LABIA [id number] [place] [address] [place] Reagin+T pallidum IgG+IgM Se rPl-Impon 10-13-2023 Reagin and Treponema pallidum IgG and IgM [Interp] Cannot exclude recent Treponemal infection if specimen collected within 7-10 days after appearance of suspect lesions or 2-3 weeks after an exposure. Clinical correlation is required. Normal [facility] Comment on above: Order Comment: Speci men Type: BLOOD SPECIMENOrdering Facility: [facility] Address: [address] [place] [address] Performed By: #### 7 3752-8 ####[facility] [id number] [place] [address] [place] CNCOon 09-15-2023 CNCO Letter Text Normal [facility] Examination level ultrasound on 09-15-2023 [facility] Radiology Study observation (narrative) [facility] Freddie 08-26-2023 CNPN Telephone (OGFVWE) CHELI OSMAN ([id number]) 1995 [address] [facility] Date Time Provider Department 08/26/23 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 MECHANIC NATHANIEL During your visit today, we recorded [...] vomiting during [O21.9] 11/13/2020 02/11/2023 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] 11/13/2020 Encounter for supervision of [...] Encounter Status:Closed by KT ABDALLA on 08/26/23 [facility] CHELI OSMAN ([id number]) 1995 [facility] Date Time Provider Department 08/26/23 COOKER MECHANIC OGFVWE During your visit today, we recorded [...] vomiting during [O21.9] 11/13/2020 02/11/2023 History of Lnbh-Nbljf-Eziulyr 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] 11/13/2020 Encounter for supervision of [...] Status:Closed by KT ABDALLA on 08/26/23 Normal [facility] Freddie 08-16-2023 CNPN Telephone (OBGYWM) CHELI OSMAN ([id number]) 1995 [facility] Date Time Provider Department 08/16/23 HARRISON CAM [...] vomiting during [O21.9] 11/13/2020 02/11/2023 History of Iphx-Arcgi-Zkypwyt 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 Obesity, BMI >30, Mak[place] twins Impression 1. Live, dichorionic/diamniotic twin . 2. [place] rump length measurement is consistent with the [...] Read By: Brooklyn Freeman M.D. MATERNAL MEDICINE [facility] Radiology Study observation (narrative) [facility] .GFRon 06-28-2023 GFR Non- 135 ml/min/1.73sqm Normal [facility] ([place]) Comment on above: Result Comment: [...] By: #### U AMICAO PREGU, UA #### [address] [address] GFR 164 ml/min/1.73sqm Normal [facility] ([place]) Comment on above: Result Comment: GFR Population [...] By: #### U AMICAO PREGU, UA #### [address] [address] BMPon 06-28-2023 BUN/Creatinine Ratio 11 ratio Normal 7-27 [facility] ([place]) Comment on above: Performed By: #### U AMICAO PREGU, UA #### [place] [address] [place], [place] [address] Calcium [Mass/Vol] 8.4 mg/dL Normal 8.4-10.2 [facility] ([place]) Comment on above: Performed By: #### U AMICAO PREGU, UA #### [address] [address] Chloride [Moles/Vol] 102 mmol/L Normal 98-107 [facility] ([place]) Comment on above: Performed By: #### U AMICAO, PREGU, UA #### [address] [address] CO2 [Moles/Vol] 24 mmol/L Normal 22-29 [facility] ([place]) Comment on above: Performed By: #### U AMICAO, PREGU, UA #### [address] [address] Creatinine [Mass/Vol] 0.53 mg/dL Low 0.55-1.02 [facility] ([place]) Comment on above: Performed By: #### U AMICAO, PREGU, UA #### [address] [address] Electrolyte Balance 11.0 mEq/L Normal 4.0-15.0 [facility] ([place]) Comment on above: Performed By: #### U AMICAO, PREGU, UA #### [address] [address] Glucose [Mass/Vol] 79 mg/dL Normal 70-105 [facility] ([place]) Comment on above: Performed By: #### U AMICAO, PREGU, UA #### [address] [address] Potassium [Moles/Vol] 3.0 mmol/L Low 3.5-5.1 [facility] ([place]) Comment on above: Performed By: #### U AMICAO, PREGU, UA #### [address] [address] Sodium [Moles/Vol] 137 mmol/L Normal 136-145 [facility] ([place]) Comment on above: Performed By: #### U AMICAO, PREGU, UA #### [address] [address] Urea nitrogen [Mass/Vol] 6 mg/dL Low 7-18 [facility] ([place]) Comment on above: Performed By: #### JOSEF SINGHU, UA #### [address] [address] .Auto Diffon 06-27-2023 Basophil, Absolute 0.0 10 3/mcL Normal 0.0-0.2 [facility] ([place]) Comment on above: Performed By: #### JOSEF SINGHU, UA #### [address] [address] Basophils/100 WBC (Bld) 0.3 % Normal 0.0-2.5 [facility] ([place]) Comment on above: Performed By: #### JOSEF SINGHU, UA #### [address] [address] Eosinophil, Absolute 0.1 10 3/mcL Normal 0.0-0.4 [facility] ([place]) Comment on above: Performed By: #### JOSEF SINGHU, UA #### [address] [address] Eosinophils/100 WBC (Bld) 1.4 % Normal 0.0-7.0 [facility] ([place]) Comment on above: Performed By: #### JOSEF SINGHU, UA #### [address] [address] Lymphocyte, Absolute 1.7 10 3/mcL Normal 0.8-3.9 [facility] ([place]) Comment on above: Performed By: #### Maura HEATH PREGU, UA #### [address] [address] Lymphocytes/100 WBC (Bld) 26.4 % Normal 10.0-50.0 [facility] ([place]) Comment on above: Performed By: #### Maura HEATH PREGU, UA #### [address] [address] Monocyte, Absolute 0.4 10 3/mcL Normal 0.2-1.0 [facility] ([place]) Comment on above: Performed By: #### U DEENACAO PREGU, UA #### [address] [address] Monocytes/100 WBC (Bld) 6.1 % Normal 1.7-13.0 [facility] ([place]) Comment on above: Performed By: #### U KUMAR PREGU, UA #### [address] [address] Neutrophils/100 WBC (Bld) 65.8 % Normal 37.0-80.0 [facility] ([place]) Comment on above: Performed By: #### Maura HEATH PREGU, UA #### [place] [address] .MDWon 06-27-2023 Monocyte Distribution Width 19.79 Normal 0.00-20.00 [facility] ([place]) Comment on above: Result Comment: For ED adult patients suspected of sepsis, MDW<=20.0 does not rule out sepsis or risk of sepsis Performed By: #### Maura HEATH PREGU, UA #### [address] [address] .NEUABSon 06-27-2023 Neutrophil, Absolute 4.3 10 3/mcL Normal 2.9-6.2 [facility] ([place]) Comment on above: Performed By: #### JOSEF SINGHU, UA #### [address] [address] CBCon 06-27-2023 Erythrocyte distribution width (RBC) [Ratio] 15.1 % High 11.5-14.5 [facility] ([place]) Comment on above: Performed By: #### Maura HEATH, PREGU, UA #### [address] [address] Hematocrit (Bld) [Volume fraction] 32.6 % Low 37.0-47.0 [facility] ([place]) Comment on above: Performed By: #### U KUMAR PREGU, UA #### [place] [id number] Hgb 11.5 G/dL Low 12.0-16.0 [facility] ([place]) Comment on above: Performed By: #### EMI SINGH UA #### Debbie [address] [address] MCH (RBC) [Entitic mass] 28.9 pg Normal 27.0-31.2 [facility] ([place]) Comment on above: Performed By: #### EMI SINGH, UA #### Debbie [address] [address] MCHC 35.4 G/dL Normal 33.0-37.0 [facility] ([place]) Comment on above: Performed By: #### EMI SINGH UA #### Debbie [address] [address] MCV (RBC) [Entitic vol] 81.6 fL Normal 80.0-94.0 [facility] ([place]) Comment on above: Performed By: #### EMI SINGH, UA #### Debbie [address] [address] Platelet 203 10 3/mcL Normal 130-400 [facility] ([place]) Comment on above: Performed By: #### EMI SINGH UA #### Debbie [address] [address] Platelet mean volume (Bld) [Entitic vol] 7.4 fL Normal 7.4-10.4 [facility] ([place]) Comment on above: Performed By: #### EMI SINGH, UA #### Debbie [address] [address] RBC 3.99 10 6/mcL Low 4.20-5.40 [facility] ([place]) Comment on above: Performed By: #### EMI SINGH, UA #### Debbie [address] [address] WBC 6.5 10 3/mcL Normal 4.6-10.8 [facility] ([place]) Comment on above: Performed By: #### U EMI HEATH UA #### Debbie [address] [address] Freddie 06-27-2023 CNPN Telephone (OBGYWM) CHELI OSMAN ([id number]) 1995 [address] [facility] Date Time Provider Department 06/27/23 LINH ZIMMERMAN OBGYWM During your visit today, we recorded the following information about you: Laisha Marsh RN 06/27/2023 4:20 PM Signed 11w3d Calling with c/o vomiting and diarrhea. No fever or body aches. 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] 11/13/2020 Encounter for supervision of [...] Status:Closed by LAISHA MARSH on 06/27/23 Normal [facility] LABORATORYOrdered By: SYSTEM SYSTEM on 06-27-2023 Basophil, [...] SS CNCOon 06-23-2023 CNCO Letter Text Normal [facility] CNOVon 06-13-2023 CNOV Office Visit ([facility] ) CHELI OSMAN ([id number]) 1995 [facility] Date Time Provider Department 06/13/23 4:05 PM [place] [facility] During your visit today, we recorded the following information about you: Temperature Pulse Respiration Blood pressure 98 degrees 95/minute 17/minute 119/79 Weight 83.8 kg Nate Aviles APRN.MASTER ESTHETICIAN 06/13/2023 4:40 PM Signed [facility] [place] [address] [facility] [address] Dept: [phone] Dept Subjective Cheli Osman is a 28 [...] hurt to swallow. Has not utilize any anfv-eoz-fkwazwb medications to help with symptoms. Denies any [...] to visit. ACTIVE PROBLEM LIST History of Jlux-Cvqhq-Kaneork Disease History of Gestational Diabetes Mellitus Forceps [...] tenderness or frontal sinus tenderness. Mouth/Throat: Lips: [place]. Mouth: Mucous membranes are moist. No oral [...] head: No submandi (more content not included)... [facility] 06-07-2023 [facility] Telephone (OGFVWE) CHELI OSMAN ([id number]) 1995 F [facility] Date Time Provider Department 06/07/23 COOKER MECHANIC [facility] During your visit today, we recorded the following information about you: Kt Abdalla, RN 06/07/2023 11:35 AM Signed 1st risk assessment form submitted 06/07/23 Kt Abdalla RN Allergies As of Date: 06/07/2023 (No Known Allergies) Date Reviewed: 06/06/2023 Reviewed by: Melony Pineda APRN.[facility] - Fully Assessed Reason for Visit: PRAF [...] vomiting during [O21.9] 11/13/2020 02/11/2023 History of Ddga-Hgemp-Ojwjcuz 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] 11/13/2020 Encounter for supervision of [...] Status:Closed by KT ABDALLA on 06/07/23 Normal [facility] Bacteria Ur Culton Bacteria identified Cx Nom (U) ORGANISM ID: 1 10,000 -<50,000 CFU/ml Normal urogenital kleber Normal [facility] Comment on above: Performed By: #### 6 30-4 ####[facility] LABCLIA [id number] [place] [address] [place] C. trachomatis+N. gonorrhoea e DNA JOEL+probe Ql (Unsp spec)on 06-06-2023 C. trachomatis rRNA JOEL+probe Ql (Unsp spec) Negative Normal Negative for Chlamydia trachomatis by amplificaton [facility] Comment on above: Order Comment: Speci men Type: SWABOrdering Facility: [facility] Address: [address] [place] [address] Performed By: #### 3 6902-5 ####[facility] LABCLIA [id number] [place] [address] [place] N. gonorrhoeae rRNA JOEL+probe Ql (Unsp spec) Negative Normal Negative for Neisseria gonorrhoeae by amplification [facility] Comment on above: Order Comment: Speci men Type: SWABOrdering Facility: [facility] Address: [address] [place] [address] Performed By: #### 3 6902-5 ####[facility] LABIA [id number] [place] [address] [place] CBC panel Auto (Bld)on 06-05 Erythrocyte distribution width (RBC) [Ratio] 13.7 % 11.5 - 15.0 % [facility] Hematocrit (Bld) [Volume fraction] 37.5 % 36.0 - 46.0 % [facility] Hemoglobin (Bld) [Mass/Vol] 12.3 g/dL 11.5 - 15.5 g/dL [facility] Interpretation and review of laboratory results Normal [facility] MCH (RBC) [Entitic mass] 27.6 pg 26.0 - 34.0 pg [facility] MCHC (RBC) [Mass/Vol] 32.8 g/dL 30.5 - 36.0 g/dL [facility] MCV (RBC) [Entitic vol] 84.1 fL 80.0 - 100.0 fL [facility] Nucleated RBC (Bld) [#/Vol] NINF [facility] Platelet mean volume (Bld) [Entitic vol] 10.2 fL 9.0 - 12.7 fL [facility] Platelets (Bld) [#/Vol] 248 10*3/uL [facility] RBC (Bld) [#/Vol] 4.46 10*6/uL 3.90 - 5.2 0 m/uL [facility] WBC (Bld) [#/Vol] 7.25 10*3/uL [facility] Erythrocyte distribution width (RBC) [Ratio] 13.7 % Normal 11.5-15.0 [facility] Comment on above: Order Comment: Speci men Type: BLOOD SPECIMENOrdering Facility: [facility] Address: [address] [place] [address] Performed By: #### 5 8410-2 ####[facility]ITALZEHRA [id number] [address] [facility] Hematocrit (Bld) [Volume fraction] 37.5 % Normal 36.0-46.0 [facility] Comment on above: Order Comment: Speci men Type: BLOOD SPECIMENOrdering Facility: [facility] Address: [address] [place] [address] Performed By: #### 5 8410-2 ####[facility]RADHA [id number] [address] OF [place] Hemoglobin (Bld) [Mass/Vol] 12.3 g/dL Normal 11.5-15.5 [facility] Comment on above: Order Comment: Speci men Type: BLOOD SPECIMENOrdering Facility: [facility] Address: [address] [place] [address] Performed By: #### 5 8410-2 ####[facility]ITALASHVINA [id number] [address] [place] MCH (RBC) [Entitic mass] 27.6 pg Normal 26.0-34.0 [facility] Comment on above: Order Comment: Speci men Type: BLOOD SPECIMENOrdering Facility: [facility] Address: [address] [place] [address] Performed By: #### 5 8410-2 ####[facility] HOSPITALNCSTELLA [id number] [place] [address] [place] MCHC (RBC) [Mass/Vol] 32.8 g/dL Normal 30.5-36.0 [facility] Comment on above: Order Comment: Speci men Type: BLOOD SPECIMENOrdering Facility: [facility] Address: [address] [place] [address] Performed By: #### 5 8410-2 ####[facility]ITALNCSTELLA [id number] [place] [address] [place] MCV (RBC) [Entitic vol] 84.1 fL Normal 80.0-100.0 [facility] Comment on above: Order Comment: Speci men Type: BLOOD SPECIMENOrdering Facility: [facility] Address: [address] [place] [address] Performed By: #### 5 8410-2 ####[facility] HOS[facility]ITALNCLIA [id number] [place] [address] [place] Nucleated RBC (Bld) [#/Vol] 10*3/uL Normal <0.01 [facility] Comment on above: Order Comment: Speci men Type: BLOOD SPECIMENOrdering Facility: [facility] Address: [address] [place] [address] Performed By: #### 5 8410-2 ####[facility]ITALNCLIA [id number] [place] [address] [place] Platelet mean volume (Bld) [Entitic vol] 10.2 fL Normal 9.0-12.7 [facility] Comment on above: Order Comment: Speci men Type: BLOOD SPECIMENOrdering Facility: [facility] Address: [address] [place] [address] Performed By: #### 5 8410-2 ####[facility] MISTY CHRISTENWNCLIA [id number] [place] [address] [place] Platelets (Bld) [#/Vol] 248 10*3/uL Normal 150-400 [facility] Comment on above: Order Comment: Speci men Type: BLOOD SPECIMENOrdering Facility: [facility] Address: [address] [place] [address] Performed By: #### 5 8410-2 ####[facility]ITALNCLIA [id number] [place] [address] [place] RBC (Bld) [#/Vol] 4.46 10*6/uL Normal 3.90-5.20 [facility] Comment on above: Order Comment: Speci men Type: BLOOD SPECIMENOrdering Facility: [facility] Address: [address] [place] [address] Performed By: #### 5 8410-2 ####[facility]ITALNCLIA [id number] [place] [address] [place] WBC (Bld) [#/Vol] 7.25 10*3/uL Normal 3.70-11.00 [facility] Comment on above: Order Comment: Speci men Type: BLOOD SPECIMENOrdering Facility: [facility] Address: [address] [place] [address] Performed By: #### 5 8410-2 ####[facility] HOS[facility]ITALNCLIA [id number] [place] [address] [place] HBV surface Ag Ql (S)on 05-09 Interpretation and review of laboratory results Normal [facility] HBV surface Ag Ser Qlon 05-09 HBV surface Ag Ql (S) Negative Normal Negative [facility] Comment on above: Order Comment: Speci men Type: BLOOD SPECIMENOrdering Facility: [facility] Address: [address] [place] [address] Performed By: #### 3 1201-7, 97319-4, 5195-3 ####[facility] LABCLIA [id number] [place] [address] [place] HCV Ab Ql (S)on 06-06-2023 Interpretation and review of laboratory results Normal [facility] HCV Ab Ser Qlon 06-06-2023 HCV Ab Ql (S) Negative Normal Negative [facility] Comment on above: Order Comment: Speci men Type: BLOOD SPECIMENOrdering Facility: [facility] Address: [address] [place] [address] Result Comment: The result suggests no evidence of active infection with Hepatitis C virus. Should recent infection be suspected, repeat testing may be considered 4-6 weeks after this draw. Performed By: #### 1 6128-1 ####[facility] LABCLIA [id number] [place] [address] [place] HEPATITIS B SURFACE ANTIGENo n 06-06-2023 HBV surface Ag Ql (S) Negative Negative [facility] HEPATITIS C ANTIBODY IA WITH CONFIRMATIONon 06-06-2023 HCV Ab Ql (S) Negative Negative [facility] Comment on above: The result suggests no evidence of active infection with Hepatitis C virus. Should recent infection be suspected, repeat testing may be considered 4-6 weeks after this draw. HIGH RISK HUMAN PAPILLOMA MANAS (HPV), PCR FOR DETECTION AND GENOTYPINGon 06-06-2023 HPV 16 Ag Ql (Unsp spec) Negative Normal Negative for HPV DNA high risk type 16 by PCR [facility] Comment on above: Order Comment: Speci men Type: FLUID SPECIMENOrdering Facility: [facility] Address: [address] [place] [address] Performed By: #### H PVHRT ####[facility] LABCLIA [id number] [place] [address] [place]#### [id number] ####[facility]ORATORYCLIA [id number] [place] [address] [place] [facility] LABCLIA [id number] [place] [address] [place] HPV 18 Ag Ql (Unsp spec) Negative Normal Negative for HPV DNA high risk type 18 by PCR [facility] Comment on above: Order Comment: Speci men Type: FLUID SPECIMENOrdering Facility: [facility] Address: [address] [place] [address] Performed By: #### H PVHRT ####[facility] LABCLIA [id number] [place] [address] [place]#### [id number] ####[facility]ORATORYCLIA [id number] [place] [address] [place] [facility] LABCLIA [id number] [place] [address] [place] HPV 31+33+35+39+45+51+ 52+56+58+59+66+68 DNA JOEL+probe Ql (Cvx) Negative for HPV DNA high risk types: 31,33,35,39,45,51,52,56,58, 59,66,68 by PCR. Normal Negative for HPV DNA high risk types: 31,33,35,39,45 ,51,52,56,58,5 9,66,68 by PCR. [facility] Comment on above: Order Comment: Speci men Type: FLUID SPECIMENOrdering Facility: [facility] Address: [address] [place] [address] Performed By: #### H PVHRT ####[facility] LABCLIA [id number] [place] [address] [place]#### [id number] ####[facility]ORATORYCLIA [id number] [place] [address] [place] [address] LABCLIA [id number] [place] [address] [place] HIV 1+2 Ab IA Qlon 4 HIV 1 and 2 Ab IA.rapid Nom (S/P/Bld) [facility] Comment on above: Test not indicated. HIV 1+2 Ab+HIV1 p24 Ag IA Ql Non-Reactive Nonreactive [facility] HIV immunoassay testing algorithm interpretation (S/P/Bld) [Interp] [facility] Comment on above: No evidence of HIV-1 or HIV-2 infection. Should recent infection be suspected, repeat testing may be considered 2-3 weeks after this draw. [place] Rev. Code 3701.243(E): This information has been [...] release of HIV test results or diagnoses. [facility] HIV 1 and 2 Ab IA.rapid Nom (S/P/Bld) Normal [facility] Comment on above: Order Comment: Speci men Type: BLOOD SPECIMENOrdering Facility: [facility] Address: [address] [place] [address] Result Comment: Test not indicated. Performed By: #### 3 1201-7, 83933-1, 5195-3 ####[facility] LABCLIA [id number] [place] [address] [place] HIV 1+2 Ab+HIV1 p24 Ag IA Ql Non-Reactive Normal Nonreactive [facility] Comment on above: Order Comment: Speci men Type: BLOOD SPECIMENOrdering Facility: [facility] Address: [address] [place] [address] Performed By: #### 3 1201-7, 60393-5, 5195-3 ####[facility] LABCLIA [id number] [place] [address] [place] HIV immunoassay testing algorithm interpretation (S/P/Bld) [Interp] Normal [facility] Comment on above: Order Comment: Speci men Type: BLOOD SPECIMENOrdering Facility: [facility] Address: [address] [place] [address] Result Comment: No e vidence of HIV-1 or HIV-2 infection. Should recent infection be suspected, repeat testing may be considered 2-3 weeks after this draw. [place] Rev. Code 3701.243(E): This information has been [...] or diagnoses. Performed By: #### 3 1201-7, 40281-1, 5195-3 ####[facility] LABCLIA [id number] [place] [address] [place] HbA1c (Bld)on 06-06-2023 Average glucose Estimated from glycated hemoglobin (Bld) [Mass/Vol] 111 mg/dL [facility] Comment on above: eAG: (Estimated aver age glucose) is a calculated value from HgbA1c and is sales representative public utilities of the average blood glucose level in the last 2-3 month period. HbA1c (Bld) [Mass fraction] 5.5 % 4.3 - 5.6 % [facility] Comment on above: [place] Diabetes As sociation guidelines indicate that patients with HgbA1c in the range 5.7-6.4% are at increased risk for development of diabetes, and intervention by lifestyle modification may be beneficial. HgbA1c greater or equal to 6.5% is considered diagnostic of diabetes. [facility] Average glucose Estimated from glycated hemoglobin (Bld) [Mass/Vol] 111 mg/dL Normal [facility] Comment on above: Order Comment: Speci men Type: BLOOD SPECIMENOrdering Facility: [facility] Address: [address] [place] [address] Result Comment: eAG: (Estimated average glucose) is a calculated value from HgbA1c and is sales representative public utilities of the average blood glucose level in the last 2-3 month period. Performed By: #### 5 5454-3 ####[facility] LABCLIA [id number] [place] [address] [place] HbA1c (Bld) [Mass fraction] 5.5 % Normal 4.3-5.6 [facility] Comment on above: Order Comment: Speci men Type: BLOOD SPECIMENOrdering Facility: [facility] Address: [address] [place] [address] Result Comment: [place] Diabetes Association guidelines indicate that patients with HgbA1c in the range 5.7-6.4% are at increased risk for development of diabetes, and intervention by lifestyle modification may be beneficial. HgbA1c greater or equal to 6.5% is considered diagnostic of diabetes. Performed By: #### 5 5454-3 ####[facility] LABCLIA [id number] [place] [address] [place] PAP TESTon 06-06-2023 ADEQUACY Satisfactory for interpretation. Normal [facility] Comment on above: Order Comment: Speci men Type: FLUID SPECIMENOrdering Facility: [facility] Address: [address] [place] [address] Performed By: #### H PVHRT ####[facility] LABCLIA [id number] [place] [address] [place]#### [id number] ####[facility]ORATORYCLIA [id number] [place] [address] [place] [facility] LABCLIA [id number] [address] [place] CASE REPORT Normal [facility] Comment on above: Order Comment: Speci men Type: FLUID SPECIMENOrdering Facility: [facility] Address: [address] [place] [address] Result Comment: Gyne cologic Cytology Report Case: [id number] Authorizing Provider: Melony Pineda APRN.CNM Collected: 06/06/2023 09:48 AM Ordering Location: OB/Gynecology Received: 06/06/2023 12:41 PM First Screen: Jacinta Arrieta, [place], ASCP Pathologist: Daniel Snowden MD Specimen: Pap Test, ThinPrep, Cervix Performed By: #### H PVHRT ####[facility] LABCLIA [id number] [place] [address] [place]#### [id number] ####[facility] LABORATORYCLIA [id number] [address] LABCLIA [id number] [place] [address] [place] CLINICAL HISTORY, CYTOLOGY, GLASS CUTTER Routine Exam Normal [facility] Comment on above: Order Comment: Speci men Type: FLUID SPECIMENOrdering Facility: [facility] Address: [address] [place] [address] Performed By: #### H PVHRT ####[facility] LABCLIA [id number] [place] [address] [place]#### [id number] ####[facility] LABORATORYCLIA [id number] [address] LABCLIA [id number] [address] [place] FINAL PERFORMING LAB Normal [facility] Comment on above: Order Comment: Speci men Type: FLUID SPECIMENOrdering Facility: [facility] Address: [address] [place] [address] Result Comment: Tech nical component, white lead filterer screening performed at [facility], [address] [place] [address] CLIA# [id number] Diagnostic interpretation performed at [facility], [address] [place] [address] CLIA# [id number] Sheet Rock Applicator: Ying Foote M.D. Performed By: #### H PVHRT ####[facility] LABCLIA [id number] [place] [address] [place]#### [id number] ####[facility]ORATORYCLIA [id number] [place] [address] [place] [facility] LABCLIA [id number] [place] [address] [place] HPV REFLEX Yes HPV Normal [facility] Comment on above: Order Comment: Speci men Type: FLUID SPECIMENOrdering Facility: [facility] Address: [address] [place] [address] Performed By: #### H PVHRT ####[facility] LABCLIA [id number] [place] [address] [place]#### [id number] ####[facility] HOSPITALCLIA [id number] [address] STATES [facility] LABCLIA [id number] [place] [address] [place] INTERPRETATION, CYTOLOGY, GLASS CUTTER Abnormal [facility] Comment on above: Order Comment: Speci men Type: FLUID SPECIMENOrdering Facility: [facility] Address: [address] [place] [address] Result Comment: Epit helial cell abnormality. Atypical squamous cells of undetermined significance (ASC-US). Performed By: #### H PVHRT ####[facility] LABCLIA [id number] [place] [address] [place]#### [id number] ####[facility] LABORATORYCLIA [id number] [place] [address] [place] [address] LABCLIA [id number] [place] [address] [place] LMP 04/01/2023 Normal [facility] Comment on above: Order Comment: Speci men Type: FLUID SPECIMENOrdering Facility: [facility] Address: [address] [place], [place] [id number] Performed By: #### H PVHRT ####[facility] LABCLIA [id number] [place] [address] [place]#### [id number] ####[facility]EVAN[facility] LABORATORYCLIA [id number] [place] [address] [place] [facility] LABCLIA [id number] [place] [address] [place] PAP DISCLAIMER COMMENT The Pap Smear is a screening test for cervical cancer. False negative results occur with all screening tests, emphasizing the need for rescreening at recommended intervals, and clinical correlation. Normal [facility] Comment on above: Order Comment: Speci men Type: FLUID SPECIMENOrdering Facility: [facility] Address: [address] [place] [address] Performed By: #### H PVHRT ####[facility] LABCLIA [id number] [place] [address] [place]#### [id number] ####[facility] LABORATORYCLIA [id number] [place] [address] [place] [facility] LABCLIA [id number] [place] [address] [place] PAP GENERAL CATEGORIZATION Epithelial Cell Abnormality Normal [facility] Comment on above: Order Comment: Speci men Type: FLUID SPECIMENOrdering Facility: [facility] Address: [address] [place], [place] [address] Performed By: #### H PVHRT ####[facility] LABCLIA [id number] [place] [address] [place]#### [id number] ####[facility] LABORATORYCLIA [id number] [place] [id number] [place] [facility] LABCLIA [id number] [address] STATES [facility] PAP FULL TIME STAFF INTERPRETER COMMENT This specimen has be en analyzed by the ThinPrep Imaging System, an automated imaging and review system, which assists the laboratory in evaluating cells on ThinPrep Pap tests. Following automated imaging, selected quiroz from every slide are reviewed by a white lead filterer. Normal [facility] Comment on above: Order Comment: Speci men Type: FLUID SPECIMENOrdering Facility: [facility] Address: [address] [place] [address] Performed By: #### H PVHRT ####[facility] LABCLIA [id number] [address] STATES [place]#### [id number] ####[facility] HOSPITALCLIA [id number] [address] LABCLIA [id number] [address] STATES OF [place] RUBELLA IGG ANTIBODYon 06-05 Interpretation and review of laboratory results Normal [facility] Rubella IgG, Qual Positive Positive [facility] Comment on above: The result suggests recent or past exposure to Rubella virus or history of Rubella vaccination. Positive result may also be seen due to presence of passively-transferred antibodies. Please correlate with patient's history. [facility] RUBELLA IGG AB, QUAL Positive Normal Positive [facility] Comment on above: Order Comment: Speci men Type: BLOOD SPECIMENOrdering Facility: [facility] Address: [address] [place] [address] Result Comment: The result suggests recent or past exposure to Rubella virus or history of Rubella vaccination. Positive result may also be seen due to presence of passively-transferred antibodies. Please correlate with patient's history. Performed By: #### R UBIGG ####[facility] LABCLIA [id number] [place] [address] [place] Reagin and Treponema pallidu m IgG and IgM [Interp]on 06-06-2023 T. pallidum IgG+IgM IA Ql (S) Non-Reactive Nonreactive [facility] T. pallidum IgG+IgM IA Ql (S) Non-Reactive Normal Nonreactive [facility] Comment on above: Order Comment: Speci men Type: BLOOD SPECIMENOrdering Facility: [facility] Address: [address] [place] [address] Performed By: #### 3 1201-7, 88953-5, 5195-3 ####[facility] LABCLIA [id number] [place] [address] [place] Reagin+T pallidum IgG+IgM Se rPl-Impon 06-06-2023 Reagin and Treponema pallidum IgG and IgM [Interp] Cannot exclude recent Treponemal infection if specimen collected within 7-10 days after appearance of suspect lesions or 2-3 weeks after an exposure. Clinical correlation is required. Normal [facility] Comment on above: Order Comment: Speci men Type: BLOOD SPECIMENOrdering Facility: [facility] Address: [address] [place] [address] Performed By: #### 3 1201-7, 82062-2, 5195-3 ####[facility] LABCLIA [id number] [place] [address] [place] SYPHILIS TOTAL W/REFLEXon Reagin and Treponema pallidum IgG and IgM [Interp] Cannot exclude recent Treponemal infection if specimen collected within 7-10 days after appearance of suspect lesions or 2-3 weeks after an exposure. Clinical correlation is required. [facility] TYPE + SCREEN PRENATALon ABO A Normal [facility] Comment on above: Order Comment: Speci men Type: BLOOD SPECIMENOrdering Facility: [facility] Address: [address] [place] [address] Performed By: #### T SPN ####[facility] BLOOD BANKCLIA [id number] [place] [address] [place] HISTORICAL AB SCR STATUS Negative Normal [facility] Comment on above: Order Comment: Speci men Type: BLOOD SPECIMENOrdering Facility: [facility] Address: [address] [place] [address] Performed By: #### T SPN ####[facility] BLOOD BANKCLIA [id number] [address] OF [place] Rh Nom (Bld) Positive Normal [facility] Comment on above: Order Comment: Speci men Type: BLOOD SPECIMENOrdering Facility: [facility] Address: [address] [place] [address] Performed By: #### T SPN ####CC [facility] BLOOD BANKCLIA [id number] [address] OF [facility] TYPE AND SCREEN EXPIRATION 06/09/2023 23:59 Normal [facility] Comment on above: Order Comment: Speci men Type: BLOOD SPECIMENOrdering Facility: [facility] Address: [address] [place] [address] Performed By: #### T SPN ####CC [facility] BLOOD BANKCLIA [id number] [address] OF [place] CNPNon 06-02-2023 CNPN Telephone (OBGYWM) CHELI OSMAN ([id number]) 1995 [address] [facility] Date Time Provider Department 06/02/23 MELONY [...] 10 MG (1tab) FOR TWO DAYS - Kovpjpgwfyyyekt-Szenehiky-Y M (BROMFED DM) 2-30-10 mg/5 mL syrup [...] vomiting during [O21.9] 11/13/2020 02/11/2023 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] 11/13/2020 Encounter for supervision of [...] Status:Closed by LAISHA MARSH on 06/02/23 Normal [facility] CNOVon 04-03-2023 CNOV Office Visit ([facility] ) CHELI OSMAN ([id number]) 1995 F [facility] Date Time Provider Department 04/03/23 12:30 PM ARELIS TAPIA [facility] During your visit today, we recorded the following information about you: Temperature Pulse Respiration Blood pressure 97.6 degrees 101/minute 18/minute 123/83 Weight Last Period 84.7 kg 04/03/23 Arelis Tapia PA-C 04/03/2023 2:33 PM Signed Rest, hydration, kymj-mcp-ygckily immune support Arelis Tapia PA-C 04/03/2023 2:36 PM Signed This note was created using Leapforceriter. Subjective Cheli Osman is a 28 year [...] 10 MG (1tab) FOR TWO DAYS - Adcaxrbupiqsdad-Kjqdtpvuy-N M (BROMFED DM) 2-30-10 mg/5 mL syrup [...] vomiting during [O21.9] 11/13/2020 02/11/2023 History of Wpng-Qpuwf-Jpboqus 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] 11/13/2020 Encounter for supervision of [...] bleeding [N93.9] 02/23/2023 (more content not included)... [facility] CNOVon 03-29-2023 [facility] Office Visit ([facility] ) CHELI OSMAN ([id number]) 1995 F [facility] Date Time Provider Department 03/29/23 9:35 AM [facility] During your visit today, we recorded the [...] diabetes mellitus (GDM) in third trimester 03/16/2021 Cwit-Qjdjl-Dfuthsv disease Current Outpatient Medications Medication Sig Dispense Refill multivitamin (CLASSIC ) 28 mg iron- 800 mcg tab(s) Take 1 tablet by mouth once daily. predniSONE (DELTASONE) 10 mg tablet Take 1 tablet by mouth once daily. TAKE 40 MG (4tabs) FOR TWO DAYS, THEN 20 MG (2tabs) FOR TWO DAYS, THEN 10 MG (1tab) FOR TWO DAYS 14 tablet 0 Cowfpkxnkoenjxg-Ewtewkrin-W M (BROMFED DM) 2-30-10 mg/5 mL syrup Take 10 mL by mouth four times a day as needed. (Patient not taking: Reported on 03/29/2023) 118 mL (more content not included)... [facility] ) CHELI OSMAN ([id number]) 1995 F [facility] Date Time Provider Department 03/19/23 12:10 PM KINGA RAMSAY [facility] During your visit today, we [...] started 2 days ago and patient tried ezwj-bmi-tnhbrzb medication without relief and due to concern patient here for further evaluation and treatment. PAST MEDICAL HISTORY Diagnosis Date Antepartum anemia complicating in first trimester 11/21/2020 Asthma childhood -no attacks since age 9 Diet controlled gestational diabetes mellitus (GDM) in third trimester 03/16/2021 Utrv-Gadsb-Bggjtuj disease ACTIVE PROBLEM LIST History of Hlrz-Nafal-Kccpgby Disease Vaginal Bleeding Current Outpatient Medications Medication [...] Order(s):Brompheniramine-Ps eud (more content not included)... Normal [facility] CBC W Auto Differential pane l (Bld)on 03-09-2023 Basophils (Bld) [#/Vol] 0.04 10*3/uL Normal <0.11 [facility] Comment on above: Order Comment: Speci men Type: BLOOD SPECIMENOrdering Facility: [facility] Address: [address] [place] [address] Performed By: #### 5 7021-8 ####[facility] MISTY MILLTOWNCLIA [id number] [place] [address] [place] Basophils/100 WBC (Bld) 0.6 % Normal [facility] Comment on above: Order Comment: Speci men Type: BLOOD SPECIMENOrdering Facility: [facility] Address: [address] [place] [address] Performed By: #### 5 7021-8 ####[facility]OSPITALWNCLIA [id number] [place] [address] [place] Differential cell count method Nom (Bld) Auto Normal [facility] Comment on above: Order Comment: Speci men Type: BLOOD SPECIMENOrdering Facility: [facility] Address: [address] [place] [address] Performed By: #### 5 7021-8 ####[facility]OSPITALWNCLIA [id number] [place] [address] [place] Eosinophils (Bld) [#/Vol] 0.21 10*3/uL Normal <0.46 [facility] Comment on above: Order Comment: Speci men Type: BLOOD SPECIMENOrdering Facility: [facility] Address: [address] [place] [address] Performed By: #### 5 7021-8 ####[facility] MILLTOWNCLIA [id number] [place] [address] [place] Eosinophils/100 WBC (Bld) 3.3 % Normal [facility] Comment on above: Order Comment: Speci men Type: BLOOD SPECIMENOrdering Facility: [facility] Address: [address] [place] [address] Performed By: #### 5 7021-8 ####[facility] [id number] [place] [address] [place] Erythrocyte distribution width (RBC) [Ratio] 13.6 % Normal 11.5-15.0 [facility] Comment on above: Order Comment: Speci men Type: BLOOD SPECIMENOrdering Facility: [facility] Address: [address] [place] [address] Performed By: #### 5 7021-8 ####[facility] [id number] [place] [address] [place] Hematocrit (Bld) [Volume fraction] 37.2 % Normal 36.0-46.0 [facility] Comment on above: Order Comment: Speci men Type: BLOOD SPECIMENOrdering Facility: [facility] Address: [address] [place] [address] Performed By: #### 5 7021-8 ####[facility] [id number] [place] [address] [place] Hemoglobin (Bld) [Mass/Vol] 12.0 g/dL Normal 11.5-15.5 [facility] Comment on above: Order Comment: Speci men Type: BLOOD SPECIMENOrdering Facility: [facility] Address: [address] [place] [address] Performed By: #### 5 7021-8 ####[facility] [id number] [place] [address] [place] Immature granulocytes (Bld) [#/Vol] 10*3/uL Normal <0.10 [facility] Comment on above: Order Comment: Speci men Type: BLOOD SPECIMENOrdering Facility: [facility] Address: [address] [place] [address] Performed By: #### 5 7021-8 ####[facility] [id number] [place] [address] [place] Immature granulocytes/100 WBC (Bld) 0.2 % Normal [facility] Comment on above: Order Comment: Speci men Type: BLOOD SPECIMENOrdering Facility: [facility] Address: [address] [place] [address] Performed By: #### 5 7021-8 ####[facility] [id number] [place] [address] [place] Lymphocytes (Bld) [#/Vol] 2.39 10*3/uL Normal 1.00-4.00 [facility] Comment on above: Order Comment: Speci men Type: BLOOD SPECIMENOrdering Facility: [facility] Address: [address] [place] [address] Performed By: #### 5 7021-8 ####[facility] [id number] [place] [address] [place] Lymphocytes/100 WBC (Bld) 37.8 % Normal [facility] Comment on above: Order Comment: Speci men Type: BLOOD SPECIMENOrdering Facility: [facility] Address: [address] [place] [address] Performed By: #### 5 7021-8 ####[facility] [id number] [place] [address] [place] MCH (RBC) [Entitic mass] 28.8 pg Normal 26.0-34.0 [facility] Comment on above: Order Comment: Speci men Type: BLOOD SPECIMENOrdering Facility: [facility] Address: [address] [place] [address] Performed By: #### 5 7021-8 ####[facility] [id number] [place] [address] [place] MCHC (RBC) [Mass/Vol] 32.3 g/dL Normal 30.5-36.0 [facility] Comment on above: Order Comment: Speci men Type: BLOOD SPECIMENOrdering Facility: [facility] Address: [address] [place] [address] Performed By: #### 5 7021-8 ####[facility] SUNICRANDALLNCKYEA [id number] [place] [address] [place] [facility] MCV (RBC) [Entitic vol] 89.2 fL Normal 80.0-100.0 [facility] Comment on above: Order Comment: Speci men Type: BLOOD SPECIMENOrdering Facility: [facility] Address: [address] [place] [address] Performed By: #### 5 7021-8 ####[facility] HOSPITALNCA [id number] [place] [address] [place] Monocytes (Bld) [#/Vol] 0.31 10*3/uL Normal <0.87 [facility] Comment on above: Order Comment: Speci men Type: BLOOD SPECIMENOrdering Facility: [facility] Address: [address] [place] [address] Performed By: #### 5 7021-8 ####[facility] HOSPITALNCA [id number] [place] [address] [place] Monocytes/100 WBC (Bld) 4.9 % Normal [facility] Comment on above: Order Comment: Speci men Type: BLOOD SPECIMENOrdering Facility: [facility] Address: [address] [place] [address] Performed By: #### 5 7021-8 ####[facility]OSPITALNCLIA [id number] [place] [address] [place] Neutrophils (Bld) [#/Vol] 3.37 10*3/uL Normal 1.45-7.50 [facility] Comment on above: Order Comment: Speci men Type: BLOOD SPECIMENOrdering Facility: [facility] Address: [address] [place] [address] Performed By: #### 5 7021-8 ####[facility]OL[facility] HOSPITALLIA [id number] [place] [address] [place] Neutrophils/100 WBC (Bld) 53.2 % Normal [facility] Comment on above: Order Comment: Speci men Type: BLOOD SPECIMENOrdering Facility: [facility] Address: [address] [place] [address] Performed By: #### 5 7021-8 ####[facility] SUNICRANDALLZEHRA [id number] [place] [address] [place] Nucleated RBC (Bld) [#/Vol] 10*3/uL Normal <0.01 [facility] Comment on above: Order Comment: Speci men Type: BLOOD SPECIMENOrdering Facility: [facility] Address: [address] [place] [address] Performed By: #### 5 7021-8 ####[facility] [id number] [place] [address] [place] Nucleated RBC/100 WBC (Bld) [Ratio] 0.0 /100 WBC Normal [facility] Comment on above: Order Comment: Speci men Type: BLOOD SPECIMENOrdering Facility: [facility] Address: [address] [place] [address] Performed By: #### 5 7021-8 ####[facility] HOSPITALZEHRA [id number] [place] [address] [place] Platelet mean volume (Bld) [Entitic vol] 10.1 fL Normal 9.0-12.7 [facility] Comment on above: Order Comment: Speci men Type: BLOOD SPECIMENOrdering Facility: [facility] Address: [address] [place] [address] Performed By: #### 5 7021-8 ####[facility]ITALNCLIA [id number] [place] [address] [place] Platelets (Bld) [#/Vol] 267 10*3/uL Normal 150-400 [facility] Comment on above: Order Comment: Speci men Type: BLOOD SPECIMENOrdering Facility: [facility] Address: [address] [place] [address] Performed By: #### 5 7021-8 ####[facility]ITALNCLIA [id number] [place] [address] [place] RBC (Bld) [#/Vol] 4.17 10*6/uL Normal 3.90-5.20 [facility] Comment on above: Order Comment: Speci men Type: BLOOD SPECIMENOrdering Facility: [facility] Address: [address] [place] [address] Performed By: #### 5 7021-8 ####[facility]ITALNCLIA [id number] [place] [address] [place] WBC (Bld) [#/Vol] 6.33 10*3/uL Normal 3.70-11.00 [facility] Comment on above: Order Comment: Speci men Type: BLOOD SPECIMENOrdering Facility: [facility] Address: [address] [place] [address] Performed By: #### 5 7021-8 ####[facility]ITALNCLIA [id number] [place] [address] [place] CNOVon 03-09-2023 CNOV Office Visit (OBGYWM ) CHELI OSMAN ([id number]) 1995 F [facility] Date Time Provider Department 03/09/23 10:30 [...] restrictions reviewed. 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] 11/13/2020 Encounter for supervision of [...] by EFRAIN MONTES DE OCA on 03/09/23 [facility] CNOVon 03-03-2023 CNOV Office Visit (OBGYWM ) CHELI OSMAN ([id number]) 1995 F [facility] Date Time Provider Department 03/03/23 4:20 [...] vomiting during [O21.9] 11/13/2020 02/11/2023 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] 11/13/2020 Encounter for supervision of [...] Status:Closed by CHELI DILLARD on 03/04/23 Normal [facility] CBC panel Auto (Bld)on 02-23 Erythrocyte distribution width (RBC) [Ratio] 13.9 % Normal 11.5-15.0 [facility] Comment on above: Order Comment: Speci men Type: BLOOD SPECIMEN [facility] Address: [address] [place] [address] Performed By: #### 5 8410-2 #### [facility] CLIA [id number] [address] OF [facility] Hematocrit (Bld) [Volume fraction] 29.1 % Low 36.0-46.0 [facility] Comment on above: Order Comment: Speci men Type: BLOOD SPECIMEN [facility] Address: [address] [place] [address] Performed By: #### 5 8410-2 #### [facility] CLIA [id number] [address] [place] Hemoglobin (Bld) [Mass/Vol] 9.8 g/dL Low 11.5-15.5 [facility] Comment on above: Order Comment: Speci men Type: BLOOD SPECIMEN [facility] Address: [address] [place] [address] Performed By: #### 5 8410-2 #### [facility] CLIA [id number] [address] STATES OF [facility] MCH (RBC) [Entitic mass] 30.0 pg Normal 26.0-34.0 [facility] Comment on above: Order Comment: Speci men Type: BLOOD SPECIMEN [facility] Address: [address] [place] [address] Performed By: #### 5 8410-2 #### [facility] CLIA [id number] [address] [place] MCHC (RBC) [Mass/Vol] 33.7 g/dL Normal 30.5-36.0 [facility] Comment on above: Order Comment: Speci men Type: BLOOD SPECIMEN Ordering Facility: [facility] Address: [address] [place] [address] Performed By: #### 5 8410-2 #### [facility] CLIA [id number] [address] MCV (RBC) [Entitic vol] 89.0 fL Normal 80.0-100.0 [facility] Comment on above: Order Comment: Speci men Type: BLOOD SPECIMEN Ordering Facility: [facility] Address: [address] [place] [address] Performed By: #### 5 8410-2 #### [facility] CLIA [id number] [address] OF [place] Nucleated RBC (Bld) [#/Vol] 10*3/uL Normal <0.01 [facility] Comment on above: Order Comment: Speci men Type: BLOOD SPECIMEN Ordering Facility: [facility] Address: [address] [place] [address] Performed By: #### 5 8410-2 #### [facility] CLIA [id number] [address] [place] Platelet mean volume (Bld) [Entitic vol] 9.9 fL Normal 9.0-12.7 [facility] Comment on above: Order Comment: Speci men Type: BLOOD SPECIMEN Ordering Facility: [facility] Address: [address] [place] [address] Performed By: #### 5 8410-2 #### [facility] CLIA [id number] [address] [place] Platelets (Bld) [#/Vol] 197 10*3/uL Normal 150-400 [facility] Comment on above: Order Comment: Speci men Type: BLOOD SPECIMEN Ordering Facility: [facility] Address: [address] [place] [address] Performed By: #### 5 8410-2 #### [facility] CLIA [id number] [address] [place] RBC (Bld) [#/Vol] 3.27 10*6/uL Low 3.90-5.20 [facility] Comment on above: Order Comment: Speci men Type: BLOOD SPECIMEN Ordering Facility: [facility] Address: [address] [place] [address] Performed By: #### 5 8410-2 #### [facility] CLIA [id number] [address] OF [facility] WBC (Bld) [#/Vol] 6.23 10*3/uL Normal 3.70-11.00 [facility] Comment on above: Order Comment: Speci men Type: BLOOD SPECIMEN Ordering Facility: [facility] Address: [address] [place] [address] Performed By: #### 5 8410-2 #### [facility] CLIA [id number] [address] TYPE + SCREEN PRENATALon ABO A Normal [facility] Comment on above: Order Comment: Speci men Type: BLOOD SPECIMEN Ordering Facility: [facility] Address: [address] [place] [address] Performed By: #### T SPN #### [facility] CLIA [id number] [address] HISTORICAL AB SCR STATUS Negative Normal [facility] Comment on above: Order Comment: Speci men Type: BLOOD SPECIMEN Ordering Facility: [facility] Address: [address] [place] [address] Performed By: #### T SPN #### [facility] CLIA [id number] [address] Rh Nom (Bld) Positive Normal [facility] Comment on above: Order Comment: Speci men Type: BLOOD SPECIMEN Ordering Facility: [facility] Address: [address] [place] [address] Performed By: #### T SPN #### [facility] CLIA [id number] [address] TYPE AND SCREEN EXPIRATION 02/26/2023 23:59 Normal [facility] Comment on above: Order Comment: Speci men Type: BLOOD SPECIMEN Ordering Facility: [facility] Address: [address], [place] [address] Performed By: #### T SPN #### [facility] [id number] [address] [place] [id number] [place] [facility] CNOPon 02-18-2023 CNOP Operative Note (Enc) (OBGYWM) Encounter Status:Closed by CHELI DILLARD on 02/21/23 [facility] CNPRicarda 02-18-2023 CNPN Telephone (OBGYWM) CHELI OSMAN ([id number]) 1995 [facility] Date Time Provider Department 02/18/23 LG MUNSON During your visit today, we recorded the following information about you: Summer Banegas, RN 02/18/2023 3:34 PM Addendum Patient had a suction DANDC @ [facility] today with RR. Patient's mother calling to [...] absence. Thank you. 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 Normal [facility] [id number] PLUSon 02-08-2023 Cell-free DNA./Cell-misael e DNA.total Dosage of chromosome-specifi c cfDNA (cfDNA) [Molar fraction] 9% Normal [facility] Comment on above: Order Comment: Speci men Type: BLOOD SPECIMENOrdering Facility: [facility] Address: [place] [address] Performed By: #### M AT21 ####[facility] LABCLIA [id number] [place] [address] Chr 13+18+21+X+Y aneuploidy Dosage of chromosome-specifi c cfDNA Ql (cfDNA) Negative Normal [facility] Comment on above: Order Comment: Speci men Type: BLOOD SPECIMENOrdering Facility: [facility] Address: [address] [place] [address] Performed By: #### M AT21 ####[facility] LABCLIA [id number] [place] [address] Chr 21 trisomy Dosage of chromosome-specifi c cfDNA Ql (cfDNA) Negative Normal [facility] Comment on above: Order Comment: Speci men Type: BLOOD SPECIMENOrdering Facility: [facility] Address: [address] [place] [address] Performed By: #### M AT21 ####[facility] LABCLIA [id number] [place] [address] Chr X and Y aneuploidy risk Sequencing Ql (cfDNA) [Interp] Not detected Normal [facility] Comment on above: Order Comment: Speci men Type: BLOOD SPECIMENOrdering Facility: [facility] Address: [address] [place] [address] Result Comment: Not Detected Not Detected Performed By: #### M AT21 ####[facility] [employer] LABCLIA [id number] [place] [address] Citation Ankush (Reference lab test) Comment Normal [facility] Comment on above: Order Comment: Speci men Type: BLOOD SPECIMENOrdering Facility: [facility] Address: [address] [place] [address] Result Comment: 1. P dakota HAGAN, et al. Malgorzata Med. 2012;14(3):296-305. 2. Zackery GUZMAN, et al. Prenat Diag. 2013;33(6):591-597. 3. Cb C, et al. Clin Chem. 2015 Apr;61(4):608-616. 4. Layton HAGAN et al. Malgorzata Med. 2011;13(11):913-920. 5. ACOG/SMFM Practice Bulletin No. 226, Nov 2019. Performed By: #### M AT21 ####[facility] LABCLIA [id number] [place] [address] Gestational age Estimated from conception date Cash Normal [facility] Comment on above: Order Comment: Herman granados Type: BLOOD SPECIMENOrdering Facility: [facility] Address: [address] [place] [address] Performed By: #### M AT21 ####[facility] LABCLIA [id number] [place] [address] GESTATIONALAGE AGE > OR = 9W Yes Normal [facility] Comment on above: Order Comment: Herman granados Type: BLOOD SPECIMENOrdering Facility: [facility] Address: [address] [place] [address] Performed By: #### M AT21 ####[facility] LABCLIA [id number] [place] [id number] Laboratory comment Ankush (Report) Comment Normal [facility] Comment on above: Order Comment: Herman granados Type: BLOOD SPECIMENOrdering Facility: [facility] Address: [address] [place] [address] Result Comment: The MaterniT(R) 21 PLUS laboratory-developed test (LDT) analyzes circulating cell-free DNA from a maternal blood sample. This test is used for screening purposes and not diagnostic. Clinical correlation is recommended. Validation data on twin pregnancies is limited and the ability of this test to detect aneuploidy in higher multiple gestations has not yet been validated. Performed By: #### M AT21 ####[facility] LABCLIA [id number] [place] [address] director of cardiopulmonary services name Nom (Provider) Comment Normal [facility] Comment on above: Order Comment: Herman roberta Type: BLOOD SPECIMENOrdering Facility: [facility] Address: [address] [place] [address] Result Comment: This specimen showed an expected representation of chromosome 21, 18 and 13 material. Clinical correlation is suggested. Comment Ruperto Gutierrez MD, PhD, Director, [employer] Performed By: #### M AT21 ####[facility] LABCLIA [id number] [place] [address] LIMITATIONS OF THE TEST Comment Normal [facility] Comment on above: Order Comment: Herman granados Type: BLOOD SPECIMENOrdering Facility: [facility] Address: [address], [place] [address] Result Comment: Alejandra cox the results of [...] and Fragmin(R)). Performed By: #### M AT21 ####[facility] LABCLIA [id number] [place] [address] Monosomy X risk Dosage of chromosome-specifi c cfDNA Ql (Plasma cell-free+WBC DNA) [Interp] Not detected Normal [facility] Comment on above: Order Comment: Speci men Type: BLOOD SPECIMENOrdering Facility: [facility] Address: [address] [place] [address] Performed By: #### M AT21 ####[facility] LABCLIA [id number] [place] [address] NEGATIVE PREDICTIVE VALUE Note Normal [facility] Comment on above: Order Comment: Speci men Type: BLOOD SPECIMENOrdering Facility: [facility] Address: [address] [place] [address] Result Comment: The Negative Predictive Value (NPV) for trisomy 21, 18, and 13 is greater than 99%. The NPV for SCA and ESS cannot be calculated as SCA and ESS are only reported when an abnormality is detected. Performed By: #### M AT21 ####[facility] LABCLIA [id number] [place] [address] NOTE Comment Normal [facility] Comment on above: Order Comment: Speci [facility] Type: BLOOD SPECIMENOrdering Facility: [facility] Address: [address] [place] [address] Result Comment: See Notes [employer] is a subsidiary of [employer], using the brand [employer]. This test was developed and its performance characteristics determined by [employer]. It has not been cleared or approved by the Food and Drug Administration. This laboratory is certified under the Clinical Laboratory Improvement Amendments (CLIA) as qualified to perform high complexity clinical laboratory testing and accredited by the [employer] [place] (CAP). If there is future clinical need for adding MaterniT GENOME testing, this specimen will be available until term. [facility] samples will not be retained beyond 60 days. [facility] patients will have to send a new sample for re-sequencing ([facility] Test Code: 987199). Performed By: #### M AT21 ####[facility] [id number] [facility] [place] [address] PERFORMANCE CHARACTERISTICS Note Normal [facility] Comment on above: Order Comment: Nickii men Type: BLOOD SPECIMENOrdering Facility: [facility] Address: [address] [place] [address] Result Comment: ! Sex ! Accuracy: 99.4% [...] gestation only. Performed By: #### M AT21 ####[facility] LABPlainmarkIA [id number] [place] [address] POSITIVE PREDICTIVE VALUE N/A Normal [facility] Comment on above: Order Comment: Herman granados Type: BLOOD SPECIMENOrdering Facility: [facility] Address: [address] [place] [address] Performed By: #### M AT21 ####[facility] LABCLIA [id number] [place] [address] Reference Lab Test Method Comment Normal [facility] Comment on above: Order Comment: Herman granados Type: BLOOD SPECIMENOrdering Facility: [facility] Address: [address] [place] [address] Result Comment: See Notes Circulating cell-free DNA [...] and 22. Performed By: #### M AT21 ####[facility] LABCLIA [id number] [place] [address] Sex Dosage of chromosome-specifi c cfDNA Nom (cfDNA) Comment Normal [facility] Comment on above: Order Comment: Speci men Type: BLOOD SPECIMENOrdering Facility: [facility] Address: [address] [place] [address] Result Comment: Cons istent with Female Performed By: #### M AT21 ####[facility] LABCLIA [id number] [place] [address] Test performance information Ankush (Unsp spec) Comment Normal [facility] Comment on above: Order Comment: Speci men Type: BLOOD SPECIMENOrdering Facility: [facility] Address: [address] [place] [address] Result Comment: The performance characteristics of the MaterniT(R) 21 PLUS laboratory-developed test (LDT) have been determined in a clinical validation study with women at increased risk for chromosomal aneuploidy.[1-4] Performed By: #### M AT21 ####[facility] [employer] LABCLIA [id number] [place] [address] Trisomy 13 risk Dosage of chromosome-specifi c cfDNA Ql (cfDNA) [Interp] Negative Normal [facility] Comment on above: Order Comment: Speci men Type: BLOOD SPECIMENOrdering Facility: [facility] Address: [address] [place] [address] Performed By: #### M AT21 ####[facility] LABCLIA [id number] [place] [address] Trisomy 18 risk Dosage of chromosome-specifi c cfDNA Ql (Plasma cell-free+WBC DNA) [Interp] Negative Normal [facility] Comment on above: Order Comment: Speci men Type: BLOOD SPECIMENOrdering Facility: [facility] Address: [address] [place] [address] Performed By: #### M AT21 ####[facility] LABIA [id number] [place] [address] GARDENIAOVsae 2023 [facility] Office Visit ([facility] ) CHELI OSMAN ([id number]) 1995 F [facility] Date Time Provider Department 02/03/23 7:35 PM DENISE COTTON [facility] During your visit today, we recorded the following information about you: Temperature Pulse Respiration Blood pressure 97.7 degrees 82/minute 17/minute 120/79 Weight Last Period 84.8 kg 10/29/22 Denise Cotton APRN.MASTER ESTHETICIAN 2023 8:58 PM Signed Cheli Albertoey is [...] 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 [facility] [address]. [place], [place] [address] Emergency Department Diagnosis: Assessment CELLULITIS: Your exam shows you have an infection of the skin called cellulitis. This infection usually develops after an injury, cut, bite, or sting, but may occur without any known cause. Usually there is a localized area of redness, swelling, and pain which gets constantly (more content not included)... Normal [facility] CNOVon 01-19-2023 CNOV Office Visit ([facility] ) JACQUICHELI ([id number]) 1995 [facility] Date Time Provider Department 01/19/23 1:20 PM [...] John David, MD 01/19/2023 2:20 PM Signed [facility] [address] [address] Date of Evaluation: 01/19/2023 Patient Name: Cheli Osman : 1995 Chief Complaint: Patient presents with: [facility] Nursing Intake: Nursing Notes: [place] (Jose)JOSE 01/19/2023 1:17 PM Signed Cheli Tim Osman is a 27 year old female who presents for [facility] Care Patient has no concerns, patient is 11weeks and 5 days Grey Hall MA Subjective Ms. Osman is a 27 year old female who presents with the following complaint(s): HPI This patient presents as a new [facility] to [facility]. They are new to the office and new to me. She is 11 weeks , being followed by [facility]. This is her second . She is [...] 312-hour shifts at a F as a [employer]. She is in a relationship with the father of her current child, trying to work with her ex- around childcare and visitation for her 92-dszum-nln. She follows with [facility], she does not smoke may have 1 [...] (primary di (more content not included)... Normal [facility] Freddie 01-11-2023 CNPN Telephone ([facility]) CHELI OSMAN ([id number]) 1995 F [facility] Date Time Provider Department 01/11/23 BRENNA ALTAMIRANO [facility] During your visit today, we recorded the following information about you: Maikel Lea RN 01/11/2023 10:21 AM Signed 1st risk assessment form submitted 01/11/23 Maikel Lea RN Allergies As of Date: 01/11/2023 (No Known Allergies) Date Reviewed: 01/07/2023 Reviewed by: Brenna Altamirano APRN.MASTER ESTHETICIAN - Fully Assessed Reason for Visit: PRAF [4193] Prescriptions as of 01/11/2023 - multivitamin (CLASSIC ) 28 mg iron- 800 mcg tab(s) Take 1 tablet by mouth once daily. - CRANBERRY EXTRACT (CRANBERRY ORAL) Take by mouth. 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 LABCLIA [id number] [place] [address] [place] C. trachomatis+N. gonorrhoea e DNA JOEL+probe Ql (Unsp spec)on 01-07-2023 C. trachomatis rRNA JOEL+probe Ql (Unsp spec) Negative Normal Negative for Chlamydia trachomatis by amplificaton [facility] Comment on above: Order Comment: Speci men Type: SWABOrdering Facility: [facility] Address: [address] [place] [address] Performed By: #### 3 6902-5 ####[facility] LABCLIA [id number] [place] [address] [place] N. gonorrhoeae rRNA JOEL+probe Ql (Unsp spec) Negative Normal Negative for Neisseria gonorrhoeae by amplification [facility] Comment on above: Order Comment: Speci men Type: SWABOrdering Facility: [facility] Address: [address] [place] [address] Performed By: #### 3 6902-5 ####[facility] LABCLIA [id number] [place] [address] [place] CARRIER SCREEN, STANDARDon 1 03-10-2022 CARRIER SCREEN RESULTS View results in Scanned Documents link when available. Normal [facility] Comment on above: Order Comment: Speci men Type: BLOOD SPECIMENOrdering Facility: [facility] Address: [address] [place] [address] Performed By: #### C RRSCN ####[facility]RIADCL[facility] [id number] [place] [address] CBC panel Auto (Bld)on 01-07 Erythrocyte distribution width (RBC) [Ratio] 13.2 % 11.5 - 15.0 % [facility] Hematocrit (Bld) [Volume fraction] 38.1 % 36.0 - 46.0 % [facility] Hemoglobin (Bld) [Mass/Vol] 13.0 g/dL 11.5 - 15.5 g/dL [facility] MCH (RBC) [Entitic mass] 29.1 pg 26.0 - 34.0 pg [facility] MCHC (RBC) [Mass/Vol] 34.1 g/dL 30.5 - 36.0 g/dL [facility] MCV (RBC) [Entitic vol] 85.4 fL 80.0 - 100.0 fL [facility] Nucleated RBC (Bld) [#/Vol] <0.01 k/uL [facility] Platelet mean volume (Bld) [Entitic vol] 10.2 fL 9.0 - 12.7 fL [facility] Platelets (Bld) [#/Vol] 235 10*3/uL 150 - 400 k/uL [facility] RBC (Bld) [#/Vol] 4.46 10*6/uL 3.90 - 5.2 0 m/uL [facility] WBC (Bld) [#/Vol] 7.18 10*3/uL 3.70 - 11. 00 k/uL [facility] Hematocrit (Bld) [Volume fraction] 38.1 % Normal 36.0-46.0 [facility] Comment on above: Order Comment: Speci men Type: BLOOD SPECIMENOrdering Facility: [facility] Address: [address] [place] [address] Performed By: #### 5 8410-2 ####[facility] [id number] [address] STATES OF [facility] MCH (RBC) [Entitic mass] 29.1 pg Normal 26.0-34.0 [facility] Comment on above: Order Comment: Speci men Type: BLOOD SPECIMENOrdering Facility: [facility] Address: [address] [place] [id number] Performed By: #### 5 8410-2 ####[facility] [id number] [place] [address] [place] MCHC (RBC) [Mass/Vol] 34.1 g/dL Normal 30.5-36.0 [facility] Comment on above: Order Comment: Speci men Type: BLOOD SPECIMENOrdering Facility: [facility] Address: [address] [place] [address] Performed By: #### 5 8410-2 ####[facility] MANJU [id number] [place] [address] [place] MCV (RBC) [Entitic vol] 85.4 fL Normal 80.0-100.0 [facility] Comment on above: Order Comment: Speci men Type: BLOOD SPECIMENOrdering Facility: [facility] Address: [address] [place] [address] Performed By: #### 5 8410-2 ####[facility]ITALAMELIESTELLA [id number] [place] [address] [place] Nucleated RBC (Bld) [#/Vol] 10*3/uL Normal <0.01 [facility] Comment on above: Order Comment: Speci men Type: BLOOD SPECIMENOrdering Facility: [facility] Address: [address] [place] [address] Performed By: #### 5 8410-2 ####[facility] HOSPITALAmanda [id number] [place] [address] [place] Platelet mean volume (Bld) [Entitic vol] 10.2 fL Normal 9.0-12.7 [facility] Comment on above: Order Comment: Speci men Type: BLOOD SPECIMENOrdering Facility: [facility] Address: [address] [place] [address] Performed By: #### 5 8410-2 ####[facility]ITALNCLIAmanda [id number] [place] [address] [place] Platelets (Bld) [#/Vol] 235 10*3/uL Normal 150-400 [facility] Comment on above: Order Comment: Speci men Type: BLOOD SPECIMENOrdering Facility: [facility] Address: [address] [place] [address] Performed By: #### 5 8410-2 ####[facility]ITAL[facility]CLIA [id number] [place] [address] [place] RBC (Bld) [#/Vol] 4.46 10*6/uL Normal 3.90-5.20 [facility] Comment on above: Order Comment: Speci men Type: BLOOD SPECIMENOrdering Facility: [facility] Address: [address] [place] [address] Performed By: #### 5 8410-2 ####[facility]ITALNCLIA [id number] [place] [address] [place] WBC (Bld) [#/Vol] 7.18 10*3/uL Normal 3.70-11.00 [facility] Comment on above: Order Comment: Speci men Type: BLOOD SPECIMENOrdering Facility: [facility] Address: [address] [place] [address] Performed By: #### 5 8410-2 ####[facility] [id number] [place] [address] [place] HBV surface Ag Ser Qlon HBV surface Ag Ql (S) Negative Normal Negative [facility] Comment on above: Order Comment: Speci men Type: BLOOD SPECIMENOrdering Facility: [facility] Address: [address] [place] [address] Performed By: #### 5 195-3, 88192-4, 12940-6 ####[facility] LABCLIA [id number] [place] [address] [place] HCV Ab Ser Qlon 01-07-2023 HCV Ab Ql (S) Negative Normal Negative [facility] Comment on above: Order Comment: Speci men Type: BLOOD SPECIMENOrdering Facility: [facility] Address: [address] [place] [address] Result Comment: The result suggests no evidence of active infection with Hepatitis C virus. Should recent infection be suspected, repeat testing may be considered 4-6 weeks after this draw. Performed By: #### 1 6128-1 ####[facility] LABCLIA [id number] [place] [address] [place] HGB ELECTROPHORESIS FOR EVAL (LAB ORDER)on 01-07-2023 Hemoglobin A (Bld) [Mass fraction] 97.4 % Normal 96.2-98.0 [facility] Comment on above: Order Comment: Speci men Type: BLOOD SPECIMENOrdering Facility: [facility] Address: [address] [place] [address] Performed By: #### H GBELEV ####[facility] [id number] [place] [address] [place] Hemoglobin A2 (Bld) [Mass fraction] 2.6 % Normal 2.0-3.1 [facility] Comment on above: Order Comment: Speci men Type: BLOOD SPECIMENOrdering Facility: [facility] Address: [address] [place] [address] Performed By: #### H GBELEV ####[facility] [id number] [place] [address] [place] Hemoglobin Unsp Elph (Bld) [Mass fraction] No abnormal hemoglobin identified. Normal No abnormal hemoglobin identified. [facility] Comment on above: Order Comment: Speci men Type: BLOOD SPECIMENOrdering Facility: [facility] Address: [address] [place] [address] Performed By: #### H GBELEV ####[facility] [id number] [place] [address] [place] HIV 1+2 Ab IA Qlon 3 HIV 1 and 2 Ab IA.rapid Nom Normal [facility] Comment on above: Order Comment: Speci men Type: BLOOD SPECIMENOrdering Facility: [facility] Address: [address] [place] [address] Result Comment: Test not indicated. Performed By: #### 5 195-3, 62887-1, 54846-4 ####[facility] LABIA [id number] [place] [address] [place] HIV 1+2 Ab+HIV1 p24 Ag IA Ql Non-Reactive Normal Nonreactive [facility] Comment on above: Order Comment: Speci men Type: BLOOD SPECIMENOrdering Facility: [facility] Address: [address] [place] [address] Performed By: #### 5 195-3, 56409-9, 87107-3 ####[facility] LABIA [id number] [place] [address] [place] HIV immunoassay testing algorithm interpretation (S/P/Bld) [Interp] Normal [facility] Comment on above: Order Comment: Speci men Type: BLOOD SPECIMENOrdering Facility: [facility] Address: [address] [place] [address] Result Comment: No e vidence of HIV-1 or HIV-2 infection. Should recent infection be suspected, repeat testing may be considered 2-3 weeks after this draw. [place] Rev. Code 3701.243(E): This information has been [...] or diagnoses. Performed By: #### 5 195-3, 02835-1, 77105-6 ####[facility] LABIA [id number] [place] [address] [place] HbA1c (Bld)on 01-07-2023 Average glucose Estimated from glycated hemoglobin (Bld) [Mass/Vol] 103 mg/dL Normal [facility] Comment on above: Order Comment: Speci men Type: BLOOD SPECIMENOrdering Facility: [facility] Address: [address] [place] [address] Result Comment: eAG: (Estimated average glucose) is a calculated value from HgbA1c and is sales representative public utilities of the average blood glucose level in the last 2-3 month period. Performed By: #### 5 5454-3 ####[facility] LABIA [id number] [address] [place] HbA1c (Bld) [Mass fraction] 5.2 % Normal 4.3-5.6 [facility] Comment on above: Order Comment: Speci men Type: BLOOD SPECIMENOrdering Facility: [facility] Address: [address] [place] [address] Result Comment: Amer [place] Diabetes Association guidelines indicate that patients with HgbA1c in the range 5.7-6.4% are at increased risk for development of diabetes, and intervention by lifestyle modification may be beneficial. HgbA1c greater or equal to 6.5% is considered diagnostic of diabetes. Performed By: #### 5 5454-3 ####[facility] LABIA [id number] [address] [place] RBC PARAMETERS FOR HB IDon 1 03-10-2022 Erythrocyte distribution width (RBC) [Ratio] 13.2 % Normal 11.5-15.0 [facility] Comment on above: Order Comment: Nickii roberta Type: BLOOD SPECIMENOrdering Facility: [facility] Address: [address] [place] [address] Performed By: #### L [id number] ####[facility] LABIA [id number] [address] [place] Performed By: #### 5 8410-2 ####[facility] [id number] [address] [place] Hematocrit (Bld) [Volume fraction] 40.2 % Normal 36.0-46.0 [facility] Comment on above: Order Comment: Nickii men Type: BLOOD SPECIMENOrdering Facility: [facility] Address: [address] [place] [address] Performed By: #### L [id number] ####[facility] LABIA [id number] [place] [address] [place] Hemoglobin (Bld) [Mass/Vol] 13.0 g/dL Normal 11.5-15.5 [facility] Comment on above: Order Comment: Speci men Type: BLOOD SPECIMENOrdering Facility: [facility] Address: [address] [place] [address] Performed By: #### L [id number] ####[facility] LABIA [id number] [place] [address] [place] Performed By: #### 5 8410-2 ####[facility] [id number] [place] [address] [place] MCH (RBC) [Entitic mass] 28.5 pg Normal 26.0-34.0 [facility] Comment on above: Order Comment: Speci men Type: BLOOD SPECIMENOrdering Facility: [facility] Address: [address] [place] [address] Performed By: #### L [id number] ####[facility] LABIA [id number] [address] [place] MCHC (RBC) [Mass/Vol] 32.3 g/dL Normal 30.5-36.0 [facility] Comment on above: Order Comment: Speci men Type: BLOOD SPECIMENOrdering Facility: [facility] Address: [address] [place] [address] Performed By: #### L [id number] ####[facility] LABIA [id number] [address] [place] MCV (RBC) [Entitic vol] 88.2 fL Normal 80.0-100.0 [facility] Comment on above: Order Comment: Speci men Type: BLOOD SPECIMENOrdering Facility: [facility] Address: [address] [place] [address] Performed By: #### L [id number] ####[facility] LABCLIA [id number] [place] [address] [place] RBC (Bld) [#/Vol] 4.56 10*6/uL Normal 3.90-5.20 [facility] Comment on above: Order Comment: Speci men Type: BLOOD SPECIMENOrdering Facility: [facility] Address: [address] [place] [address] Performed By: #### L [id number] ####[facility] LABCLIA [id number] [place] [address] [place] RUBELLA IGG ABon 01-07-2023 RUBELLA IGG AB, QUAL Positive Normal Positive [facility] Comment on above: Order Comment: Speci men Type: BLOOD SPECIMENOrdering Facility: [facility] Address: [address] [place] [address] Result Comment: The result suggests recent or past exposure to Rubella virus or history of Rubella vaccination. Positive result may also be seen due to presence of passively-transferred antibodies. Please correlate with patient's history. Performed By: #### R UBIGG ####[facility] LABIA [id number] [place] [address] [place] Reagin and Treponema pallidu m IgG and IgM [Interp]on 01-07-2023 T. pallidum IgG+IgM IA Ql (S) Non-Reactive Normal Nonreactive [facility] Comment on above: Order Comment: Speci men Type: BLOOD SPECIMENOrdering Facility: [facility] Address: [address] [place] [address] Performed By: #### 5 195-3, 99551-3, 32096-6 ####[facility] LABIA [id number] [place] [address] [place] Reagin+T pallidum IgG+IgM Se rPl-Impon 01-07-2023 Reagin and Treponema pallidum IgG and IgM [Interp] Cannot exclude recent Treponemal infection if specimen collected within 7-10 days after appearance of suspect lesions or 2-3 weeks after an exposure. Clinical correlation is required. Normal [facility] Comment on above: Order Comment: Speci men Type: BLOOD SPECIMENOrdering Facility: [facility] Address: [address] [place] [address] Performed By: #### 5 195-3, 80772-7, 94016-6 ####[facility] LABCLIA [id number] [place] [address] [place] TYPE + SCREEN PRENATALon ABO A Normal [facility] Comment on above: Order Comment: Speci men Type: BLOOD SPECIMENOrdering Facility: [facility] Address: [address] [place] [address] Performed By: #### T SPN ####[facility] BLOOD BANKCLIA [id number] [place] [address] [place] HISTORICAL AB SCR STATUS Negative Normal [facility] Comment on above: Order Comment: Speci men Type: BLOOD SPECIMENOrdering Facility: [facility] Address: [address] [place] [address] Performed By: #### T SPN ####[facility] BLOOD BANKCLIA [id number] [place] [address] [place] Rh Nom (Bld) Positive Normal [facility] Comment on above: Order Comment: Speci men Type: BLOOD SPECIMENOrdering Facility: [facility] Address: [address] [place] [address] Performed By: #### T SPN ####[facility] BLOOD BANKCLIA [id number] [place] [address] [place] TYPE AND SCREEN EXPIRATION 01/10/2023 23:59 Normal [facility] Comment on above: Order Comment: Speci men Type: BLOOD SPECIMENOrdering Facility: [facility] Address: [address] [place] [address] Performed By: #### T SPN ####[facility] BLOOD BANKCLIA [id number] [facility] [id number] [address] [facility] CNOVon 01-01-2023 CNOV Office Visit ([facility]MAS ) CHELI OSMAN ([id number]) 1995 [address] [facility] Date Time Provider Department 01/01/23 11:00 AM [facility] During your visit today, we recorded the following information about you: Temperature Pulse Respiration Blood pressure 97.8 degrees 68/minute 20/minute 112/78 Weight Last Period 86 kg 10/29/22 Arleen Brown APRN.MASTER ESTHETICIAN 01/01/2023 12:24 PM Signed HPI: Cheli Dumont [...] diabetes mellitus (GDM) in third trimester 03/16/2021 Kmmm-Lnsfs-Qhmuvwg disease ACTIVE PROBLEM LIST History of Xrug-Etiul-Ixfiuzp Disease History of Gestational Diabetes Current Outpatient [...] , sympto (more content not included)... Normal [facility] .Auto Diffon 11-02-2022 Basophil, Absolute 0.0 10 3/mcL Normal 0.0-0.2 [facility] ([place]) Comment on above: Performed By: #### M DW, ANEU, BMP, CBC, ADIFF, GFR #### [address] [address] Basophils/100 WBC (Bld) 0.2 % Normal 0.0-2.5 [facility] ([place]) Comment on above: Performed By: #### M DW, ANEU, BMP, CBC, ADIFF, GFR #### [address] [address] Eosinophil, Absolute 0.1 10 3/mcL Normal 0.0-0.4 [facility] ([place] Comment on above: Performed By: #### M DW, ANEU, BMP, CBC, ADIFF, GFR #### [address] [address] Eosinophils/100 WBC (Bld) 0.7 % Normal 0.0-7.0 [facility] ([place] Comment on above: Performed By: #### M DW, ANEU, BMP, CBC, ADIFF, GFR #### [address] [address] Lymphocyte, Absolute 0.9 10 3/mcL Normal 0.8-3.9 [facility] ([place] Comment on above: Performed By: #### M DW, ANEU, BMP, CBC, ADIFF, GFR #### [address] [address] Lymphocytes/100 WBC (Bld) 11.8 % Normal 10.0-50.0 [facility] ([place] Comment on above: Performed By: #### M DW, ANEU, BMP, CBC, ADIFF, GFR #### [address] [address] Monocyte, Absolute 0.4 10 3/mcL Normal 0.2-1.0 [facility] ([place] Comment on above: Performed By: #### M DW, ANEU, BMP, CBC, ADIFF, GFR #### [address] [address] Monocytes/100 WBC (Bld) 5.1 % Normal 1.7-13.0 [facility] ([place] Comment on above: Performed By: #### M DW, ANEU, BMP, CBC, ADIFF, GFR #### [address] [address] Neutrophils/100 WBC (Bld) 82.2 % High 37.0-80.0 [facility] ([place] Comment on above: Performed By: #### M DW, ANEU, BMP, CBC, ADIFF, GFR #### [address] [address] .GFRon 11-02-2022 GFR 99 ml/min/1.73sqm Normal [facility] ([place]) Comment on above: Result Comment: GFR Population [...] #### U AMICAO PREGU, UA #### [address] [place], [place] [address] GFR Non- 81 ml/min/1.73sqm Normal [facility] ([place]) Comment on above: Result Comment: GFR Population [...] By: #### U JOSEF HEATHU, UA #### [address] [address] .MDWon 11-02-2022 Monocyte Distribution Width 18.47 Normal 0.00-20.00 [facility] ([place]) Comment on above: Result Comment: For ED adult patients suspected of sepsis, MDW<=20.0 does not rule out sepsis or risk of sepsis Performed By: #### M DW, ANEU, BMP, CBC, ADIFF, GFR #### [address] [address] .NEUABSon 11-02-2022 Neutrophil, Absolute 6.4 10 3/mcL High 2.9-6.2 [facility] ([place] Comment on above: Performed By: #### M DW, ANEU, BMP, CBC, ADIFF, GFR #### [address] [place], [place] [address] .Urinalysis Microscopic (AO) on 11-02-2022 UA Bacteria 3+ /hpf Abnormal [facility] ([place] Comment on above: Performed By: #### U AMICAO, PREGU, UA #### [address] [address] UA RBC 5-10 Abnormal None Seen [facility] ([place] Comment on above: Performed By: #### U AMICAO, PREGU, UA #### [address] [address] UA Squam Epithelial LOADED Abnormal None Seen [facility] ([place] Comment on above: Performed By: #### U AMICAO, PREGU, UA #### [address] [address] UA WBC LOADED Abnormal None Seen [facility] ([place] Comment on above: Performed By: #### U AMICAO, PREGU, UA #### [address] [address] BMPon 11-02-2022 BUN/Creatinine Ratio 22 ratio Normal 7-27 [facility]) Comment on above: Performed By: #### M DW, ANEU, BMP, CBC, ADIFF, GFR #### [address] [address] Calcium [Mass/Vol] 8.1 mg/dL Low 8.4-10.2 [facility] ([place]) Comment on above: Performed By: #### M DW, ANEU, BMP, CBC, ADIFF, GFR #### [address] [address] Chloride [Moles/Vol] 100 mmol/L Normal 98-107 [facility]) Comment on above: Performed By: #### M DW, ANEU, BMP, CBC, ADIFF, GFR #### [address] [address] CO2 [Moles/Vol] 26 mmol/L Normal 22-29 [facility]) Comment on above: Performed By: #### M DW, ANEU, BMP, CBC, ADIFF, GFR #### [address] [address] Creatinine [Mass/Vol] 0.83 mg/dL Normal 0.55-1.02 [facility] ([place] Comment on above: Performed By: #### M DW, ANEU, BMP, CBC, ADIFF, GFR #### [address] [address] Electrolyte Balance 10.0 mEq/L Normal 4.0-15.0 [facility] ([place] Comment on above: Performed By: #### M DW, ANEU, BMP, CBC, ADIFF, GFR #### [address] [address] Glucose [Mass/Vol] 106 mg/dL High 70-105 [facility] ([place]) Comment on above: Performed By: #### M DW, ANEU, BMP, CBC, ADIFF, GFR #### [address] [address] Potassium [Moles/Vol] 3.7 mmol/L Normal 3.5-5.1 [facility]) Comment on above: Performed By: #### M DW, ANEU, BMP, CBC, ADIFF, GFR #### [address] [address] Sodium [Moles/Vol] 136 mmol/L Normal 136-145 [facility] ([place]) Comment on above: Performed By: #### M DW, ANEU, BMP, CBC, ADIFF, GFR #### [address] [address] Urea nitrogen [Mass/Vol] 18 mg/dL Normal 7-18 [facility] ([place]) Comment on above: Performed By: #### M DW, ANEU, BMP, CBC, ADIFF, GFR #### [address] [address] CBCon 11-02-2022 Erythrocyte distribution width (RBC) [Ratio] 13.7 % Normal 11.5-14.5 [facility]) Comment on above: Performed By: #### M DW, ANEU, BMP, CBC, ADIFF, GFR #### [address] [address] Hematocrit (Bld) [Volume fraction] 39.5 % Normal 37.0-47.0 [facility] ([place] Comment on above: Performed By: #### M DW, ANEU, BMP, CBC, ADIFF, GFR #### [address] [address] Hgb 13.4 G/dL Normal 12.0-16.0 [facility] ([place] Comment on above: Performed By: #### M DW, ANEU, BMP, CBC, ADIFF, GFR #### [address] [address] MCH (RBC) [Entitic mass] 28.4 pg Normal 27.0-31.2 [facility] ([place] Comment on above: Performed By: #### M DW, ANEU, BMP, CBC, ADIFF, GFR #### [address] [address] MCHC 34.0 G/dL Normal 33.0-37.0 [facility] ([place] Comment on above: Performed By: #### M DW, ANEU, BMP, CBC, ADIFF, GFR #### [address] [address] MCV (RBC) [Entitic vol] 83.5 fL Normal 80.0-94.0 [facility] ([place] Comment on above: Performed By: #### M DW, ANEU, BMP, CBC, ADIFF, GFR #### [address] [address] Platelet 263 10 3/mcL Normal 130-400 [facility] ([place] Comment on above: Performed By: #### M DW, ANEU, BMP, CBC, ADIFF, GFR #### [address] [address] Platelet mean volume (Bld) [Entitic vol] 7.7 fL Normal 7.4-10.4 [facility] ([place] Comment on above: Performed By: #### M DW, ANEU, BMP, CBC, ADIFF, GFR #### [place] [address] RBC 4.74 10 6/mcL Normal 4.20-5.40 [facility] ([place] Comment on above: Performed By: #### M DW, ANEU, BMP, CBC, ADIFF, GFR #### [address] [place], [place] [address] WBC 7.8 10 3/mcL Normal 4.6-10.8 [facility] ([place] Comment on above: Performed By: #### M DW, ANEU, BMP, CBC, ADIFF, GFR #### [id number] [place], [place] [address] CT ABDOMEN/PELVIS W/O CONTRA STon 11-02-2022 CT [...] 11/02/2022 5:57:37 PM Ordering Provider: IAN Mckeon [facility] ([place]) LABORATORYOrdered By: Archie Chan on 11-02-2022 Appearance [...] HCG ( test) Ql (U) Negative Normal [facility] ([place]) Comment on above: Performed By: #### U KUMAR PREGU, UA #### [address] [address] test (u) int Not detected Invalid Interpretation Code [facility] ([place]) Comment on above: Performed By: #### U AMICAO PREGU, UA #### [address] [address] UAon 11-02-2022 Color (U) Dark yellow Normal [facility] ([place]) Comment on above: Performed By: #### U AMICAO PREGU, UA #### [address] [address] Glucose (U) [Mass/Vol] Negative Normal Negative [facility] ([place]) Comment on above: Performed By: #### U AMICAO PREGU, UA #### [address] [address] Ketones Ql (U) Trace Abnormal Negative [facility] ([place] Comment on above: Performed By: #### U AMICAO, PREGU, UA #### [address] [address] UA Appear Cloudy Abnormal Clear [facility] ([place] Comment on above: Performed By: #### U AMICAO, PREGU, UA #### [address] [address] UA Blood Large Abnormal Negative [facility] ([place] Comment on above: Performed By: #### U AMICAO, PREGU, UA #### [place] [address] UA Leuk Est Trace Abnormal Negative [facility] ([place] Comment on above: Performed By: #### U AMICAO, PREGU, UA #### [place] [address] UA Nitrite Negative Normal Negative [facility] ([place] Comment on above: Performed By: #### U AMICAO, PREGU, UA #### [address] [address] UA pH 5.5 Normal 5.0 - 8.0 [facility] ([place] Comment on above: Performed By: #### U AMICAO, PREGU, UA #### [address] [address] UA Protein 30 mg/dL Normal Negative [facility] ([place] Comment on above: Performed By: #### U AMICAO, PREGU, UA #### [address] [address] UA Spec Grav >=1.030 Abnormal 1.015-1.025 [facility] ([place] Comment on above: Performed By: #### U AMICAO, PREGU, UA #### [address] [address] UA Specimen Type Void Normal [facility] ([place] Comment on above: Performed By: #### U AMICAO, PREGU, UA #### [address] [address] [place], [place] [address] UA Urobilinogen 0.2 E.U./dL Normal 0.2-1.0 [facility] ([place] Comment on above: Performed By: #### U AMICATerri PREGU, UA #### [address] [place], [place] [address] Urobilinogen (U) [Mass/Vol] Negative Normal Negative [facility] ([place] Comment on above: Performed By: #### U DEENACATerri PREGU, UA #### [address] [place], [place] [address] GROUP A STREPTOCOCCUS BY PCR on 09-13-2022 S. pyogenes DNA JOEL+probe Ql (Throat) Detected Abnormal Not detected [facility] RAPID GROUP A STREP RFLX TO PCRon 09-13-2022 S. pyogenes Ag Ql (Throat) Negative Negative Group A Strep Screen [facility] RAPID GROUP A STREP RFLX TO PCRon 07-06-2022 S. pyogenes Ag Ql (Throat) Positive Abnormal Negative Group A Strep Screen [facility] OBSTETRIC ULTRASOUND WHIon 0 05-19-2021 [facility] URINE OB DIP B/Oon 2 Glucose Ql (U) Negative Neg mg/dL [facility] Protein.monoclonal (U) [Mass/Vol] Negative Neg mg/dL [facility] OBSTETRIC ULTRASOUND WHIon 0 05-04-2021 Patient Resource Specialist Indication Malposition of fetus, single or unspecified [...] [place] RDMS Read By: Samy Delaney M.D. [facility] UA DIP, URINE (POC)on 2021 BILIRUBIN UA (POCT) Negative Negative [facility] CLARITY UA (POCT) Clear [facility] COLOR UA (POCT) Yellow [facility] GLUCOSE UA (POCT) Negative Negative mg/dL [facility] HEMOGLOBIN/BLOOD UA (POCT) Trace-intact Abnormal Negative [facility] KETONE UA (POCT) Negative Negative mg/dL [facility] LEUKOCYTES UA (POCT) Negative Negative [facility] NITRITE UA (POCT) Negative Negative [facility] PH UA (POCT) 6.0 4.5 - 8.0 [facility] Protein Ql (U) Negative Negative mg/dL [facility] SPECIFIC GRAVITY UA (POCT) 1.025 1.005 - 1.030 [facility] UROBILINOGEN UA (POCT) 0.2 E.U./dL Normal E.U./dL [facility] [place] 04-16-2021 EMERGENCY PHYSICIAN REPORT This is a preliminary report only, as the practitioner review and authentication has not occurred. [facility] PH[facility] ASSESS[facility] RECORDS : FlexChartData Event Time: 04/16/2021 11:25 Status: Signed [facility] Cheli Jordan [[id number]] Mid-Level Chart (V2b) / 1995 Chart created at 04/16/2021 11:20 by Carmina Bear Chart closed at 04/16/2021 13:49 Entry in Emergency Department at 04/16/2021 10:24, departure at 04/16/2021 14:20 Patient Name: Cheli Jordan Record Number: [id number] Date: 04/16/2021 11:20 Entered Department at: 04/16/2021 [...] evaluation. She denies any fevers or chills. [facility] PATIENT NAME: CHELI JORDAN [address] [facility] [address] [place] MEDICAL REC #: [id number] [place] [address] EMERGENCY DEPARTMENT REPORT EMERGENCY DEPARTMENT PHYSICIAN No [...] at anytime with new or worsening symptoms. [facility] PATIENT NAME: CHELI JORDAN [address] [facility] MEDICAL REC #: [id number] [place] [address] EMERGENCY DEPARTMENT REPORT EMERGENCY DEPARTMENT PHYSICIAN Patient is agreeable to this plan and is stable for discharge. Additional Information: Discussed Results, Diagnosis and Follow-Up with Patient. Clinical Impression: 1. Right mid leg cellulitis Disposition: Discharged *Home. Condition: Improved Direct patient care supervision and electronic documentation review by Maurice France on 04/16/2021 18:02. : FlexChartData Event Time: 04/16/2021 14:45 Status: Signed [facility] Cheli Jordan [[id number]] Attending Physician 1995 Chart (V2b) Chart created at 04/16/2021 14:10 by Samy Encinas Chart closed at 04/16/2021 14:10 Entry in Emergency Department at 04/16/2021 10:24, departure at 04/16/2021 14:20 Patient Name: Cheli Jordan Record Number: [id number] Date: 04/16/2021 14:10 Entered Department at: 04/16/2021 10:24 Patient Seen at: 04/16/2021 11:10 PCP: Cheli Dillard,OB Chief Complaint:R leg pain behind knee and down for the last 2 weeks. Denies injury. Pt is [address] [facility] PATIENT NAME: MILY JORDANJUDITH Dumont [address] [facility] MEDICAL REC #: [id number] [place], [place] [address] (more content not included)... Normal [facility] 04-16-[address] [facility] DATE OF SERVICE: 11/2021 CHIEF COMPLAINT: Right [...] to other sources such as bees or [facility] PATIENT NAME: CHELI JORDAN [address] [facility] [address] [place] MEDICAL REC #: [id number] [place] [address] MENLO STATCARE REPORT STATCARE PHYSICIAN foods. SOCIAL HISTORY: [...] but no pain on palpating the medial [facility] PATIENT NAME: CHELI JORDAN Tim [address] [facility] [address] [place] MEDICAL REC #: [id number] [place] [address] [facility] REPORT STATCARE PHYSICIAN aspect of the gastrocnemius [...] agrees. She is going to go to [facility]. I spoke with Shola in triage at o'clock, and they are awaiting the patient's arrival. She is going down by private vehicle with her significant other. The patient agrees and understands the patient at this time. The patient was stable upon discharge from [facility]. VIC Randolph/[id number] [facility] PATIENT NAME: DORETHA JORDANYUDITH Dumont [address] [facility] [address] [place] MEDICAL REC #: [id number] [place] [address] MENLO STATCARE REPORT STATCARE PHYSICIAN [facility] File#: [id number] END OF DOCUMENT / CHANGE LOG FOLLOWS Last Edited By Elec. Signed By Toyin Cedillo PAC #[email or web address] Toyin Cedillo PAC #[email or web address] on 04/20/2021 11:08 ET on 04/20/2021 11:08 ET Revision Number - 2 Verified/Reviewed by 04/20/[email or web address] [facility] PATIENT NAME: MILY JORDANJUDITH Dumont [address] [facility] [address] [place] MEDICAL REC #: [id number] [place] [address] MENLO STATCARE REPORT STATCARE PHYSICIAN [facility] 04-16-2021 VENOUS DUPLEX REPORT Normal [facility] VASCULAR REPORT - Patient: CHELI JORDAN Tim Account [id number] Ordering Phy: MR: [id number] Reason for Visit: R.LEG PAIN/STATCARE/TRIAGE Date of Service 04/16/21 Reading Physician: Torito Miller MD [id number] SINGLE LE VENOUS DUPLEX SCAN [place] [id number] [facility] [place], [place] [address] Non- Invasive Vascular Laboratory Lower Extremity Venous Duplex __ Name: DORETHA JORDANYUDITH Dumont Study Date: 04/16/2021 11:56 AM Patient Location: [facility] : 1995 Gender: Female Age: 26 yrs Ethnicity: [place] Accession No. [id number] No. [id number] Order No. [id number] Interpretation Summary No evidence of deep vein thrombosis (DVT) or superficial vein thrombosis in the right lower extremity. Procedure: CC: Samy Encinas DO [facility] PATIENT NAME: CHELI JORDAN [address] [place] [address] Dr. [place] MEDICAL REC #: [id number] [place] [address] ADMIT DATE: DISCHARGE DATE: 04/16/21 VENOUS DUPLEX REPORT ATTENDING PHY: Samy Encinas DO Electronically Signed by: Torito Miller MD Esign Date: 04/16/21 VASCULAR REPORT - Patient: DORETHA JORDANYUDITH Dumont Account [id number] Ordering Phy: MR: [id number] Reason for Visit: R.LEG PAIN/STATCARE/TRIAGE Date of [...] Rt. PTV: Completely CC: Samy Encinas DO [facility] PATIENT NAME: CHELI JORDAN [address] [facility] [address] [facility] REC #: [id number] [place] [address] ADMIT DATE: DISCHARGE DATE: 04/16/21 VENOUS DUPLEX REPORT ATTENDING PHY: Samy Encinas DO Electronically Signed by: Torito Miller MD Esign Date: 04/16/21 VASCULAR REPORT - Patient: CHELI JORDAN Account [id number] Ordering Phy: MR: [id number] Reason for Visit: R.LEG PAIN/STATCARE/TRIAGE Date of [...] Electronically signed by: CC: Samy Encinas DO [facility] PATIENT NAME: TERRYCHELI [address] [facility] [address] [place] MEDICAL REC #: [id number] [place] [address] ADMIT DATE: DISCHARGE DATE: 04/16/21 VENOUS DUPLEX REPORT ATTENDING PHY: Samy Encinas DO Electronically Signed by: Torito Miller MD Esign Date: 04/16/21 VASCULAR REPORT - Patient: DORETHA JORDANYUDITH Dumont Account [id number] Ordering Phy: MR: [id number] Reason for Visit: R.LEG PAIN/STATCARE/TRIAGE Date of Service 04/16/21 Reading Physician: MD Torito Varghese MD 04/16/2021 09:38 PM Ordering Physician: Carmina Bear Performed By: Kimberly Villarreal RVT CC: Carmina Bear CC: Samy Encinas DO [facility] PATIENT NAME: CHELI JORDAN [id number] (more content not included)... Normal [facility] [place] Vital Signs Date Time Vital Sign Value Performing Clinician Facility 12-22-2023 10:35-0500 Body mass index (BMI) [Ratio] 37.15 kg/m2 Lg Munson MD Work Phone: [facility] 12-22-2023 10:35-0500 Body weight 89.18 kg Lg Munson MD Work Phone: [facility] 12-22-2023 10:35-0500 Diastolic blood pressure 70 mm[Hg] Lg Munson MD Work Phone: [facility] 12-22-2023 10:35-0500 Systolic blood pressure 118 mm[Hg] Lg Munson MD Work Phone: [facility] 12-15-2023 10:30-0500 Body mass index (BMI) [Ratio] 36.84 kg/m2 Harrison Cam MD Work Phone: [facility] 12-15-2023 10:30-0500 Body weight 88.45 kg Harrison Cam MD Work Phone: [facility] 12-15-2023 10:30-0500 Diastolic blood pressure 53 mm[Hg] Harrison Cam MD Work Phone: [facility] 12-15-2023 10:30-0500 Systolic blood pressure 89 mm[Hg] Harrison Cam MD Work Phone: [facility] 12-15-2023 09:00-0500 Body temperature 97.5 [degF] Treatment Wstr Work Phone: [facility] 12-15-2023 09:00-0500 Diastolic blood pressure 71 mm[Hg] Treatment Wstr Work Phone: [facility] 12-15-2023 09:00-0500 Heart rate 102 /min Treatment Wstr Work Phone: [facility] 12-15-2023 09:00-0500 Respiratory rate 20 /min Treatment Wstr Work Phone: [facility] 12-15-2023 09:00-0500 SaO2% (BldA) [Mass fraction] 98 % Treatment Wstr Work Phone: [facility] 12-15-2023 09:00-0500 Systolic blood pressure 111 mm[Hg] Treatment Wstr Work Phone: [facility] 12-08-2023 14:06-0400 Body mass index (BMI) [Ratio] 36.28 kg/m2 Lg Munson MD Work Phone: [facility] 12-08-2023 14:06-0400 Body weight 87.09 kg Lg Munson MD Work Phone: [facility] 12-08-2023 14:06-0400 Diastolic blood pressure 60 mm[Hg] Lg Munson MD Work Phone: [facility] 12-08-2023 14:06-0400 Systolic blood pressure 106 mm[Hg] Lg Munson MD Work Phone: [facility] 12-08-2023 12:01-0400 Body temperature 97.2 [degF] Treatment Wstr Work Phone: [facility] 12-08-2023 12:01-0400 Diastolic blood pressure 74 mm[Hg] Treatment Wstr Work Phone: [facility] 12-08-2023 12:01-0400 Heart rate 101 /min Treatment Wstr Work Phone: [facility] 12-08-2023 12:01-0400 Respiratory rate 18 /min Treatment Wstr Work Phone: [facility] 12-08-2023 12:01-0400 SaO2% (BldA) [Mass fraction] 97 % Treatment Wstr Work Phone: [facility] 12-08-2023 12:01-0400 Systolic blood pressure 110 mm[Hg] Treatment Wstr Work Phone: [facility] 11-24-2023 13:50-0400 Body mass index (BMI) [Ratio] 36.28 kg/m2 Harrison Cam MD Work Phone: [facility] 11-24-2023 13:50-0400 Body weight 87.09 kg Harrison Cam MD Work Phone: [facility] 11-24-2023 13:50-0400 Diastolic blood pressure 68 mm[Hg] Harrison Cam MD Work Phone: [facility] 11-24-2023 13:50-0400 Systolic blood pressure 118 mm[Hg] Harrison Cam MD Work Phone: [facility] 11-10-2023 12:00-0400 Body temperature 97.39 [degF] Treatment Wstr Work Phone: [facility] 11-10-2023 12:00-0400 Diastolic blood pressure 70 mm[Hg] Treatment Wstr Work Phone: [facility] 11-10-2023 12:00-0400 Heart rate 103 /min Treatment Wstr Work Phone: [facility] 11-10-2023 12:00-0400 Systolic blood pressure 111 mm[Hg] Treatment Wstr Work Phone: [facility] 11-10-2023 11:51-0400 Body mass index (BMI) [Ratio] 35.9 kg/m2 Harrison Cam MD Work Phone: [facility] 11-10-2023 11:51-0400 Body weight 86.18 kg Harrison Cam MD Work Phone: [facility] 11-10-2023 11:51-0400 Diastolic blood pressure 68 mm[Hg] Harrison Cam MD Work Phone: [facility] 11-10-2023 11:51-0400 Systolic blood pressure 110 mm[Hg] Harrison Cam MD Work Phone: [facility] 11-08-2023 15:22-0400 Body temperature 97.9 [degF] Treatment Wstr Work Phone: [facility] 11-08-2023 15:22-0400 Diastolic blood pressure 70 mm[Hg] Treatment Wstr Work Phone: [facility] 11-08-2023 15:22-0400 Heart rate 93 /min Treatment Wstr Work Phone: [facility] 11-08-2023 15:22-0400 Respiratory rate 18 /min Treatment Wstr Work Phone: [facility] 11-08-2023 15:22-0400 SaO2% (BldA) [Mass fraction] 98 % Treatment Wstr Work Phone: [facility] 11-08-2023 15:22-0400 Systolic blood pressure 106 mm[Hg] Treatment Wstr Work Phone: [facility] 11-03-2023 09:58-0400 Body temperature 97.39 [degF] Treatment Wstr Work Phone: [facility] 11-03-2023 09:58-0400 Diastolic blood pressure 66 mm[Hg] Treatment Wstr Work Phone: [facility] 11-03-2023 09:58-0400 Heart rate 92 /min Treatment Wstr Work Phone: [facility] 11-03-2023 09:58-0400 SaO2% (BldA) [Mass fraction] 98 % Treatment Wstr Work Phone: [facility] 11-03-2023 09:58-0400 Systolic blood pressure 105 mm[Hg] Treatment Wstr Work Phone: [facility] 10-26-2023 09:23-0400 Body mass index (BMI) [Ratio] 35.33 kg/m2 Linh George MD Work Phone: [facility] 10-26-2023 09:23-0400 Body weight 84.82 kg Linh George MD Work Phone: [facility] 10-26-2023 09:23-0400 Diastolic blood pressure 60 mm[Hg] Linh George MD Work Phone: [facility] 10-26-2023 09:23-0400 Systolic blood pressure 104 mm[Hg] Linh George MD Work Phone: [facility] 10-13-2023 15:02-0400 Body mass index (BMI) [Ratio] 35.71 kg/m2 Melony Plotts [employer]OMB[employer] SLIDE ASSEMBLER.CNM Work Phone: [facility] 10-13-2023 15:02-0400 Body weight 85.73 kg Melony Plotts [employer]OMB[employer] SLIDE ASSEMBLER.CNM Work Phone: [facility] 10-13-2023 15:02-0400 Diastolic blood pressure 70 mm[Hg] Melony Plotts [employer]OMB[employer] SLIDE ASSEMBLER.CNM Work Phone: [facility] 10-13-2023 15:02-0400 Systolic blood pressure 116 mm[Hg] Melony Plotts [employer]OMBONE SLIDE ASSEMBLER.CNM Work Phone: [facility] 09-15-2023 11:23-0400 Body mass index (BMI) [Ratio] 34.54 kg/m2 Lg Munson MD Work Phone: [facility] 09-15-2023 11:23-0400 Body weight 82.92 kg Lg Munson MD Work Phone: [facility] 09-15-2023 11:23-0400 Diastolic blood pressure 64 mm[Hg] Lg Munson MD Work Phone: [facility] 09-15-2023 11:23-0400 Systolic blood pressure 110 mm[Hg] Lg Munson MD Work Phone: [facility] 08-16-2023 14:38-0400 Body mass index (BMI) [Ratio] 33.75 kg/m2 Harrison Cam MD Work Phone: [facility] 08-16-2023 14:38-0400 Body weight 81.01 kg Harrison Cam MD Work Phone: [facility] 08-16-2023 14:38-0400 Diastolic blood pressure 70 mm[Hg] Harrison Cam MD Work Phone: [facility] 08-16-2023 14:38-0400 Systolic blood pressure 110 mm[Hg] Harrison Cam MD Work Phone: [facility] 07-29-2023 08:49-0400 Body mass index (BMI) [Ratio] 33.63 kg/m2 Harrison Cam MD Work Phone: [facility] 07-29-2023 08:49-0400 Body weight 80.74 kg Harrison Cam MD Work Phone: [facility] 07-29-2023 08:49-0400 Diastolic blood pressure 60 mm[Hg] Harrison Cam MD Work Phone: [facility] 07-29-2023 08:49-0400 Systolic blood pressure 104 mm[Hg] Harrison Cam MD Work Phone: [facility] 07-05-2023 14:05-0400 Body mass index (BMI) [Ratio] 33.78 kg/m2 Harrison Cam MD Work Phone: [facility] 07-05-2023 14:05-0400 Body weight 81.1 kg Harrison Cam MD Work Phone: [facility] 07-05-2023 14:05-0400 Diastolic blood pressure 70 mm[Hg] Harrison Cam MD Work Phone: [facility] 07-05-2023 14:05-0400 Systolic blood pressure 110 mm[Hg] Harrison Cam MD Work Phone: [facility] 06-27-2023 22:50-0400 Diastolic blood pressure 78 mm[Hg] AVIS SANTOS MD [facility] 06-27-2023 22:50-0400 Heart rate 79 /min AVIS SANTOS MD [facility] 06-27-2023 22:50-0400 Respiratory rate 16 /min AVIS SANTOS MD [facility] 06-27-2023 22:50-0400 Systolic blood pressure 112 mm[Hg] AVIS SANTOS MD [facility] 06-27-2023 21:49-0400 Diastolic Blood Pressure Non-Invasive 70 mm[Hg] AVIS SANTOS MD [facility] 06-27-2023 21:49-0400 Heart rate 72 /min AVIS SANTOS MD [facility] 06-27-2023 21:49-0400 Mean blood pressure 82 mm[Hg] AVIS SANTOS MD [facility] 06-27-2023 21:49-0400 Respiratory rate 18 /min AVIS SANTOS MD [facility] 06-27-2023 21:49-0400 Systolic Blood Pressure Non-Invasive 108 mm[Hg] AVIS SANTOS MD [facility] 06-27-2023 18:46-0400 Body height 155 cm AVIS SANTOS MD [facility] 06-27-2023 18:46-0400 Body temperature 97.88 [degF] AVIS SANTOS MD [facility] 06-27-2023 18:46-0400 Body weight 84 kg AVIS SANTOS MD [facility] 06-27-2023 18:46-0400 Diastolic Blood Pressure Non-Invasive 77 mm[Hg] AVIS SANTOS MD [facility] 06-27-2023 18:46-0400 Heart rate 98 /min AVIS SANTOS MD [facility] 06-27-2023 18:46-0400 Respiratory rate 18 /min AVIS SANTOS MD [facility] 06-27-2023 18:46-0400 Systolic Blood Pressure Non-Invasive 119 mm[Hg] AVIS SANTOS MD [facility] 06-13-2023 16:12-0400 Body mass index (BMI) [Ratio] 34.92 kg/m2 Nate Aviles APRN.CNP Work Phone: [facility] 06-13-2023 16:12-0400 Body temperature 98.01 [degF] Nate Aviles APRN.MASTER ESTHETICIAN Work Phone: [facility] 06-13-2023 16:12-0400 Body weight 83.83 kg Nate Aviles APRN.MASTER ESTHETICIAN Work Phone: [facility] 06-13-2023 16:12-0400 Diastolic blood pressure 79 mm[Hg] Nate Aviles APRN.MASTER ESTHETICIAN Work Phone: [facility] 06-13-2023 16:12-0400 Heart rate 95 /min Nate Aviles APRN.MASTER ESTHETICIAN Work Phone: [facility] 06-13-2023 16:12-0400 Respiratory rate 17 /min Nate Aviles APRN.MASTER ESTHETICIAN Work Phone: [facility] 06-13-2023 16:12-0400 SaO2% (BldA) [Mass fraction] 99 % Nate Aviles APRN.MASTER ESTHETICIAN Work Phone: [facility] 06-13-2023 16:12-0400 Systolic blood pressure 119 mm[Hg] Nate Aviles APRN.MASTER ESTHETICIAN Work Phone: [facility] 06-06-2023 08:41-0400 Body height 154.9 cm Melony Pineda APRN.CNM Work Phone: [facility] 06-06-2023 08:41-0400 Body mass index (BMI) [Ratio] 34.62 kg/m2 Melony Pineda [employer]OM[employer] SLIDE ASSEMBLER.CNM Work Phone: [facility] 06-06-2023 08:41-0400 Body weight 83.1 kg Melony Pineda [employer]OMB[employer] SLIDE ASSEMBLER.CNM Work Phone: [facility] 06-06-2023 08:41-0400 Diastolic blood pressure 64 mm[Hg] Melony Pineda [employer]OMB[employer] SLIDE ASSEMBLER.CNM Work Phone: [facility] 06-06-2023 08:41-0400 Systolic blood pressure 100 mm[Hg] Melony Pineda [employer]OMB[employer] SLIDE ASSEMBLER.CNM Work Phone: [facility] 04-03-2023 14:02-0500 Body temperature 97.59 [degF] Arelis Roberto PA-C Work Phone: [facility] 04-03-2023 14:02-0500 Body weight 84.73 kg Arelis Roberto PA-C Work Phone: [facility] 04-03-2023 14:02-0500 Diastolic blood pressure 83 mm[Hg] Arelis Roberto PA-C Work Phone: [facility] 04-03-2023 14:02-0500 Heart rate 101 /min Arelis Roberto PA-C Work Phone: [facility] 04-03-2023 14:02-0500 Respiratory rate 18 /min Arelis Roberto PA-C Work Phone: [facility] 04-03-2023 14:02-0500 SaO2% (BldA) [Mass fraction] 99 % Arelis Roberto PA-C Work Phone: [facility] 04-03-2023 14:02-0500 Systolic blood pressure 123 mm[Hg] Arelis Roberto PA-C Work Phone: [facility] 03-29-2023 09:31-0500 Body temperature 98.29 [degF] Horace Torres PA-C Work Phone: [facility] 03-29-2023 09:31-0500 Body weight 83.92 kg Horace Torres PA-C Work Phone: [facility] 03-29-2023 09:31-0500 Diastolic blood pressure 74 mm[Hg] Horace Torres PA-C Work Phone: [facility] 03-29-2023 09:31-0500 Heart rate 63 /min Horace Torres PA-C Work Phone: [facility] 03-29-2023 09:31-0500 Respiratory rate 19 /min Horace Torres PA-C Work Phone: [facility] 03-29-2023 09:31-0500 SaO2% (BldA) [Mass fraction] 100 % Horace Torres PA-C Work Phone: [facility] 03-29-2023 09:31-0500 Systolic blood pressure 109 mm[Hg] Horace Torres PA-C Work Phone: [facility] 03-19-2023 12:21-0500 Body temperature 98.1 [degF] Kinga Ramsay MD Work Phone: [facility] 03-19-2023 12:21-0500 Body weight 84.55 kg Kinga Ramsay MD Work Phone: [facility] 03-19-2023 12:21-0500 Diastolic blood pressure 71 mm[Hg] Kinga Ramsay MD Work Phone: [facility] 03-19-2023 12:21-0500 Heart rate 89 /min Kinga Ramsay MD Work Phone: [facility] 03-19-2023 12:21-0500 Respiratory rate 20 /min Kinga Ramsay MD Work Phone: [facility] 03-19-2023 12:21-0500 SaO2% (BldA) [Mass fraction] 99 % Kinga Ramsay MD Work Phone: [facility] 03-19-2023 12:21-0500 Systolic blood pressure 109 mm[Hg] Kinga Ramsay MD Work Phone: [facility] 02-06-2023 11:30-0500 Blood Pressure Cuff Size BARBARA GALLARDO MD [facility] 02-06-2023 11:30-0500 Blood Pressure Location BARBARA GALLARDO MD [facility] 02-06-2023 11:30-0500 Blood Pressure Method BARBARA GALLARDO MD [facility] 02-06-2023 11:30-0500 Body temperature 98.06 [degF] BARBARA GALLARDO MD [facility] 02-06-2023 11:30-0500 Heart rate 87 /min BARBARA GALLARDO MD [facility] 02-06-2023 11:30-0500 Reason For Taking VItal Signs BARBARA GALLARDO MD [facility] 02-06-2023 11:30-0500 Respiratory rate 18 /min BARBARA GALLARDO MD [facility] 01-19-2023 13:10-0500 Body height 154.9 cm Harpreet Shankar MD Work Phone: [facility] 01-19-2023 13:10-0500 Body temperature 98.8 [degF] Harpreet Shankar MD Work Phone: [facility] 01-19-2023 13:10-0500 Body weight 83.78 kg Harpreet Shankar MD Work Phone: [facility] 01-19-2023 13:10-0500 Diastolic blood pressure 68 mm[Hg] Harpreet Shankar MD Work Phone: [facility] 01-19-2023 13:10-0500 Heart rate 108 /min Harpreet Shankar MD Work Phone: [facility] 01-19-2023 13:10-0500 SaO2% (BldA) [Mass fraction] 98 % Harpreet Shankar MD Work Phone: [facility] 01-19-2023 13:10-0500 Systolic blood pressure 114 mm[Hg] Harpreet Shankar MD Work Phone: [facility] 01-07-2023 08:31-0500 Body height 153.7 cm Brenna Haury [employer]OMB[employer] SLIDE ASSEMBLER.MASTER ESTHETICIAN Work Phone: [facility] 01-07-2023 08:31-0500 Body weight 83.73 kg Brenna Haury TROMBONE SLIDE ASSEMBLER.MASTER ESTHETICIAN Work Phone: [facility] 01-07-2023 08:31-0500 Diastolic blood pressure 68 mm[Hg] Brenna Haury TROMBONE SLIDE ASSEMBLER.MASTER ESTHETICIAN Work Phone: [facility] 01-07-2023 08:31-0500 Systolic blood pressure 100 mm[Hg] Brenna Haury TROMBONE SLIDE ASSEMBLER.MASTER ESTHETICIAN Work Phone: [facility] 11-26-2022 14:26-0400 Body height 154.9 cm Linh George MD Work Phone: [facility] 11-26-2022 14:26-0400 Body weight 84.37 kg Linh George MD Work Phone: [facility] 11-26-2022 14:26-0400 Diastolic blood pressure 80 mm[Hg] Linh George MD Work Phone: [facility] 11-26-2022 14:26-0400 Systolic blood pressure 118 mm[Hg] Linh George MD Work Phone: [facility] 11-02-2022 18:34-0400 Diastolic Blood Pressure Non-Invasive [address] IAN MORAN MD [facility] 11-02-2022 18:34-0400 Heart rate 82 /min DR IAN MORAN MD [facility] 11-02-2022 18:34-0400 Respiratory rate 16 /min DR IAN MORAN MD [facility] 11-02-2022 18:34-0400 Systolic Blood Pressure Non-Invasive [address] IAN MORAN MD [facility] 11-02-2022 16:02-[address] IAN MORAN MD [facility] 11-02-2022 16:02-[address] IAN Betancourt MD [facility] 11-02-2022 16:02-0400 Body temperature 98.78 [degF] DR IAN MORAN MD [facility] 11-02-2022 16:02-0400 Body weight 84.[address] IAN MORAN MD [facility] 11-02-2022 16:02-0400 Diastolic Blood Pressure Non-Invasive [address] IAN MORAN MD [facility] 11-02-2022 16:02-0400 Heart rate 91 /min DR IAN MORAN MD [facility] 11-02-2022 16:02-0400 Respiratory rate 18 /min DR IAN MORAN MD [facility] 11-02-2022 16:02-0400 Systolic Blood Pressure Non-Invasive [address] IAN MORAN MD [facility] 09-13-2022 15:39-0400 Body temperature 98.91 [degF] Augusto Adamse MD Work Phone: [facility] 09-13-2022 15:39-0400 Body weight 86.91 kg Augusto Adames MD Work Phone: [facility] 09-13-2022 15:39-0400 Diastolic blood pressure 81 mm[Hg] Augusto Adames MD Work Phone: [facility] 09-13-2022 15:39-0400 Heart rate 80 /min Augusto Adames MD Work Phone: [facility] 09-13-2022 15:39-0400 Respiratory rate 19 /min Augusto Adames MD Work Phone: [facility] 09-13-2022 15:39-0400 SaO2% (BldA) [Mass fraction] 98 % Augusto Adames MD Work Phone: [facility] 09-13-2022 15:39-0400 Systolic blood pressure 126 mm[Hg] Augusto Adames MD Work Phone: [facility] 07-12-2022 14:49-0400 Body weight 84.37 kg Michael Dyko PA-C Work Phone: [facility] 07-12-2022 14:49-0400 Diastolic blood pressure 77 mm[Hg] Michael Dyko PA-C Work Phone: [facility] 07-12-2022 14:49-0400 Heart rate 88 /min Michael Dyko PA-C Work Phone: [facility] 07-12-2022 14:49-0400 Respiratory rate 17 /min Michael Dyko PA-C Work Phone: [facility] 07-12-2022 14:49-0400 SaO2% (BldA) [Mass fraction] 99 % Michael Dyko PA-C Work Phone: [facility] 07-12-2022 14:49-0400 Systolic blood pressure 136 mm[Hg] Michael Dyko PA-C Work Phone: [facility] 07-06-2022 09:05-0400 Body temperature 98.4 [degF] Augusto Adames MD Work Phone: [facility] 07-06-2022 09:05-0400 Body weight 83.28 kg Augusto Adames MD Work Phone: [facility] 07-06-2022 09:05-0400 Diastolic blood pressure 66 mm[Hg] Augusto Adames MD Work Phone: [facility] 07-06-2022 09:05-0400 Heart rate 114 /min Augusto Adames MD Work Phone: [facility] 07-06-2022 09:05-0400 Respiratory rate 18 /min Augusto Adames MD Work Phone: [facility] 07-06-2022 09:05-0400 SaO2% (BldA) [Mass fraction] 98 % Augusto Adames MD Work Phone: [facility] 07-06-2022 09:05-0400 Systolic blood pressure 116 mm[Hg] Augusto Adames MD Work Phone: [facility] 12-27-2021 10:36-0500 Body temperature 99 [degF] Demetrius Treadwellehler PA-C Work Phone: [facility] 12-27-2021 10:36-0500 Body weight 76.2 kg Demetrius Shelly PA-C Work Phone: [facility] 12-27-2021 10:36-0500 Diastolic blood pressure 71 mm[Hg] Demetrius Shelly PA-C Work Phone: [facility] 12-27-2021 10:36-0500 Heart rate 108 /min Demetrius Shelly PA-C Work Phone: [facility] 12-27-2021 10:36-0500 Respiratory rate 18 /min Demetrius Shelly PA-C Work Phone: [facility] 12-27-2021 10:36-0500 SaO2% (BldA) [Mass fraction] 98 % Edmetrius Shelly PA-C Work Phone: [facility] 12-27-2021 10:36-0500 Systolic blood pressure 126 mm[Hg] Demetrius Shelly HO Work Phone: [facility] 11-30-2021 20:21-0400 Body temperature 97.7 [degF] Deana Navarro DO Work Phone: [facility] 11-30-2021 20:21-0400 Body weight 76.2 kg Deana Navarro DO Work Phone: [facility] 11-30-2021 20:21-0400 Diastolic blood pressure 79 mm[Hg] Deana Navarro DO Work Phone: [facility] 11-30-2021 20:21-0400 Heart rate 80 /min Deana Navarro DO Work Phone: [facility] 11-30-2021 20:21-0400 Respiratory rate 18 /min Deana Navarro DO Work Phone: [facility] 11-30-2021 20:21-0400 SaO2% (BldA) [Mass fraction] 100 % Deana Navarro DO Work Phone: [facility] 11-30-2021 20:21-0400 Systolic blood pressure 140 mm[Hg] Deana Navarro DO Work Phone: [facility] 07-10-2021 10:56-0400 Body weight 75.75 kg Marcia Beckett APRN.CNM Work Phone: [facility] 07-10-2021 10:56-0400 Diastolic blood pressure 70 mm[Hg] Marcia Beckett APRN.CNM Work Phone: [facility] 07-10-2021 10:56-0400 Systolic blood pressure 108 mm[Hg] Marcia Beckett APRN.CNM Work Phone: [facility] 05-19-2021 11:18-0400 Body weight 84.82 kg Cheli Dillard MD Work Phone: [facility] 05-19-2021 11:18-0400 Diastolic blood pressure 74 mm[Hg] Cheli Dillard MD Work Phone: [facility] 05-19-2021 11:18-0400 Systolic blood pressure 110 mm[Hg] Cheli Dillard MD Work Phone: [facility] 05-19-2021 10:54-0400 Body weight 85 kg Luda Allen MD Work Phone: [facility] 05-19-2021 10:54-0400 Diastolic blood pressure 74 mm[Hg] Luda Allen MD Work Phone: [facility] 05-19-2021 10:54-0400 Systolic blood pressure 110 mm[Hg] Luda Allen MD Work Phone: [facility] 05-12-2021 10:33-0400 Body weight 82.1 kg Marcia Beckett TROMBONE SLIDE ASSEMBLER.CNM Work Phone: [facility] 05-12-2021 10:33-0400 Diastolic blood pressure 68 mm[Hg] Marcia Beckett TROMBONE SLIDE ASSEMBLER.CNM Work Phone: [facility] 05-12-2021 10:33-0400 Systolic blood pressure 110 mm[Hg] Marcia Beckett TROMBONE SLIDE ASSEMBLER.CNM Work Phone: [facility] 05-04-2021 14:07-0400 Body height 154.9 cm Samy Delaney MD Work Phone: [facility] 05-04-2021 14:07-0400 Body weight 83.28 kg Samy Delaney MD Work Phone: [facility] 05-04-2021 14:07-0400 Diastolic blood pressure 76 mm[Hg] Samy Delaney MD Work Phone: [facility] 05-04-2021 14:07-0400 Systolic blood pressure 122 mm[Hg] Samy Delaney MD Work Phone: [facility] Encounters Encounter Date Encounter Type Care Provider Facility Start: 12-22-2023 End: 12-22-2023 ambulatory LG MUNSON Facility:[facility] Start: 12-22-2023 End: 12-22-2023 Patient encounter procedure Lg Munson MD Work Phone: OB/Gynecology Comment on above: Supervision of high risk in third trimester (Primary Dx); Dichorionic diamniotic twin in third trimester; Gestational diabetes mellitus (GDM), antepartum, gestational diabetes method of control unspecified; 36 weeks gestation of Start: 12-15-2023 End: 12-15-2023 ambulatory HARPREET SHANKAR Facility:[facility] Start: 12-15-2023 End: 12-15-2023 Patient encounter [...] End: 12-15-2023 ambulatory Treatment Rm 18 Rick [facility] Work Phone: Hematology/Oncology Comment on above: Maternal iron defici ency anemia complicating , third trimester (Primary Dx) Start: 12-08-2023 End: 12-08-2023 ambulatory [facility] Hematology/Oncology Comment on above: Maternal iron defici ency anemia complicating , third trimester (Primary Dx) Start: 12-08-2023 End: 12-08-2023 Patient encounter procedure Treatment Rm 16 Rick [facility] Work Phone: Hematology/Oncology Comment on above: [...] 12-07-2023 End: 12-07-2023 Telephone encounter Leonora Chapman mechanic sound technician [facility] Comment on above: Blood Management Start: 12-01-2023 End: 12-01-2023 ambulatory Leonora Chapman RNmechanic sound technician [facility] Comment on above: Blood Management Start: 12-01-2023 End: 12-01-2023 Telephone encounter Harrison Cam MD Work Phone: OB/Gynecology Comment on above: Results Start: 11-30-2023 ambulatory MELONY PINEDA [facility] y:[facility] Start: 11-30-2023 End: 11-30-2023 Subsequent hospital visit by physician Pat Moore [facility] Work Phone: OB/Gynecology Comment on above: with uncer tain dates in first trimester [Z34.91] Start: 11-28-2023 End: 11-28-2023 ambulatory HARRISON CAM Facility:[id number] Start: 11-27-2023 End: 11-28-2023 ambulatory Harrison Cam MD Work Phone: OB/Gynecology Comment on above: RSV Vaccine Start: 11-24-2023 End: 11-24-2023 ambulatory LUIS BERUMEN APRN-MASTER ESTHETICIAN Facility:A Start: 11-24-2023 End: 11-24-2023 ambulatory HARPREET SMITH LONGPORT Facility:[facility] Start: 11-24-2023 End: 11-24-2023 Patient encounter [...] Start: 11-15-2023 End: 11-15-2023 ambulatory HARPREET SMITH LONGPORT Facility:[facility] Start: 11-15-2023 End: 11-15-2023 Nursing evaluation [...] Patient encounter procedure Treatment Rm 14 Rick [facility] Work Phone: Hematology/Oncology Start: 11-10-2023 End: 11-10-2023 Telephone encounter [facility] Work Phone: OB/Gynecology Comment on above: Java Scala Developer - O ther ([employer] Scheduling/LM attempt # 1 to schedule [employer] consult) Start: 11-10-2023 End: 11-10-2023 ambulatory SINGH SHANKAR Facility:[facility] Start: 11-10-2023 End: 11-10-2023 Patient encounter procedure Harrison Cam MD Work Phone: OB/Gynecology Comment on above: Supervision of high risk in third trimester (Primary Dx); Need for influenza vaccination; Need for vaccination; Gestational diabetes mellitus (GDM), antepartum, gestational diabetes method of control unspecified; Anemia complicating , third trimester; Dichorionic diamniotic twin in third trimester Start: 11-10-2023 End: 11-10-2023 ambulatory [facility] Facility:[facility] Start: 11-10-2023 End: 11-10-2023 Patient encounter procedure Fire Alarm Installer [facility] [employer] Work Phone: Maternal Medicine Comment on above: Dichorionic diamniot ic twin in first trimester (Primary Dx) Start: 11-08-2023 End: 11-08-2023 Patient encounter procedure Treatment Rm 14 Rick [facility] Work Phone: Hematology/Oncology Start: 11-08-2023 End: 11-08-2023 ambulatory [facility] Work Phone: [address] Comment on above: [employer] Time to Sche dule Maternal iron defici ency anemia complicating , third trimester (Primary Dx) Start: 11-08-2023 End: 11-08-2023 E-mail encounter from caregiver Pat Moore [facility] Work Phone: [address] Start: 11-04-2023 End: 11-04-2023 Telephone encounter Financial Navigator Rick Work Phone: Financial Services Comment on above: Benefits Investigati on Start: 11-03-2023 End: 11-03-2023 ambulatory LG MUNSON Hematology/Oncology Comment on above: Maternal iron defici ency anemia complicating , third trimester (Primary Dx) Start: 11-03-2023 End: 11-03-2023 Patient encounter procedure Treatment Rm 17 Rick [facility] Work Phone: Hematology/Oncology Start: 10-31-2023 End: 10-31-2023 Telephone encounter Leonora Chapman RNmechanic sound technician [facility] Comment on above: Hematology; Appointm ent Start: 10-28-2023 End: 10-28-2023 Orders Only Lg Munson MD Work Phone: OB/Gynecology Comment on above: Results Start: 10-27-2023 End: 10-27-2023 Telephone encounter Nurse Fire Alarm Installer [facility] Work Phone: Obstetrics/Gynecology Comment on above: PRAF [...] Start: 10-26-2023 End: 10-26-2023 ambulatory Leonora Chapman RNmechanic sound technician [facility] Comment on above: Blood Management Start: 10-22-2023 End: 10-22-2023 [facility] Facility:[id number] Start: 10-14-2023 End: 10-14-2023 Telephone encounter Lg Munson MD Work Phone: OB/Gynecology Comment on above: Orders Start: 10-13-2023 End: 10-13-2023 ambulatory LINH GEORGE Facility:[facility] Start: 10-13-2023 End: 10-13-2023 Patient encounter procedure Fire Alarm Installer [facility] Work Phone: OB/Gynecology Comment on [...] antepartum; Low-lying placenta Start: 10-13-2023 End: 10-13-2023 [facility] Facility:[facility] Start: 09-15-2023 End: 09-15-2023 ambulatory HARRISON CAM Facility:[facility] Start: 09-15-2023 End: 09-15-2023 Patient encounter procedure Fire Alarm Installer [facility] Work Phone: OB/Gynecology Comment on above: Dichorionic diamniot ic twin in first trimester (Primary Dx); 22 weeks gestation of 22 weeks gestation o f (Primary Dx); Dichorionic diamniotic twin in first trimester; Encounter for supervision of high risk in second trimester, antepartum Start: 08-26-2023 Telephone encounter Java Scala Developer RN Obstetrics/Gynecology Comment on above: PRAF Start: 08-16-2023 Telephone encounter Harrison thompson MD Work Phone: OB/Gynecology Start: 08-16-2023 End: 08-16-2023 ambulatory [facility] Facility:[facility] Start: 08-16-2023 End: 08-16-2023 Patient encounter [...] without hemorrhage, antepartum Start: 07-29-2023 End: 07-29-2023 [facility] Facility:[facility] Start: 07-29-2023 End: 07-29-2023 Patient encounter procedure Harrison Cam MD Work Phone: OB/Gynecology Comment on above: 16 weeks gestation o f (Primary Dx) Start: 07-12-2023 End: 07-12-2023 [facility] Facility:[facility] Start: 07-12-2023 End: 07-12-2023 Patient encounter procedure Whi Tech 1 Fire Alarm Installer [facility] Comment on above: Dichorionic diamniot ic twin in first trimester (Primary Dx); 13 weeks gestation of ; Obesity affecting in first trimester, unspecified obesity type; Encounter for nuchal translucency testing Start: 07-05-2023 End: 07-05-2023 [facility] Facility:[facility] Start: 07-05-2023 End: 07-05-2023 Patient encounter [...] Emergency department patient visit AVIS SANTOS MD [facility] Start: 06-27-2023 Telephone encounter Linh George MD Work Phone: OB/Gynecology Comment on above: OB- N/V Start: 06-13-2023 End: 06-13-2023 ambulatory [facility] Facility:[id number] Start: 06-13-2023 End: 06-13-2023 Office outpatient visit 15 minutes Nate Aviles APRN.MASTER ESTHETICIAN Work Phone: [facility] Comment on above: Non-recurrent acute serous otitis media of both ears (Primary Dx); 9 weeks gestation of ; Pharyngitis, unspecified etiology Start: 06-07-2023 Telephone encounter Java Scala Developer RN Obstetrics/Gynecology Comment on above: PRAF Start: 06-06-2023 E-mail encounter rivera pedersen Pat [facility] Work Phone: OB/Gynecology Start: 06-06-2023 End: 06-06-2023 Patient encounter procedure Melony Pineda TROMBONE SLIDE ASSEMBLER.CNM Work Phone: OB/Gynecology Comment on above: with uncer tain dates in first trimester (Primary Dx); History of gestational diabetes mellitus; Forceps or vacuum extractor delivery; Screening for cervical cancer; Screening for human papillomavirus; Vaginal bleeding; History of Jdui-Tqxtp-Dnxqxfh disease; 8 weeks gestation of ; Obesity affecting in first trimester, unspecified obesity type; Encounter for supervision of high risk in first trimester, antepartum [employer] Referral Start: 06-06-2023 End: 06-06-2023 [facility] Facility:[facility] Start: 06-06-2023 End: 06-06-2023 [facility] Facility:[facility] Start: 06-02-2023 Telephone encounter Melony anton TROMBONE SLIDE ASSEMBLER.CNM Work Phone: OB/Gynecology Comment on above: Appointment; isabel g in Start: 04-03-2023 End: 04-03-2023 Patient encounter procedure Arelis Tapia PA-C Work Phone: [facility] Comment on above: Sinobronchitis (Prim kenny Dx) Start: 04-03-2023 End: 04-03-2023 ambulatory SELF Facility:[id number] Start: 03-29-2023 End: 03-29-2023 Patient encounter procedure Horace Torres PA-C Work Phone: [facility] Comment on above: Dermatitis (Primary Dx) Start: 03-29-2023 End: 03-29-2023 ambulatory SELF Facility:[id number] Start: 03-19-2023 End: 03-19-2023 Patient encounter procedure Kinga Ramsay MD Work Phone: [facility] Comment on above: URI with cough and c ongestion (Primary Dx) Start: 03-19-2023 End: 03-19-2023 ambulatory HARPREET SHANKAR Facility:[id number] Start: 03-09-2023 End: 03-09-2023 ambulatory HARPREET SHANKAR Facility:[facility] Start: 03-03-2023 ambulatory HARPREET SHANKAR Facil ity:[facility] Start: 02-23-2023 End: 02-24-2023 ambulatory HARPREET SHANKAR Facility:[facility] Start: 02-11-2023 End: 02-11-2023 ambulatory HARPREET SHANKAR Facility:[facility] Start: 02-08-2023 End: 02-08-2023 ambulatory HARPREET SHANKAR Facility:[facility] Start: 02-06-2023 End: 02-06-2023 Emergency department patient visit BARBARA GALLARDO MD Facility:B Start: 02-06-2023 End: 02-06-2023 Emergency department patient visit BARBARA GALLARDO MD [facility] Start: 2023 End: 2023 ambulatory HARPREET SHANKAR Facility:[id number] Start: 01-19-2023 End: 01-19-2023 ambulatory HARPREET SHANKAR Facility:[facility] Start: 01-19-2023 End: 01-19-2023 Patient encounter procedure Harpreet Shankar MD Work Phone: [facility] Comment on above: Encounter to [facility] with new doctor (Primary Dx); Depression screening; History of gestational diabetes; Numbness of foot Start: 01-11-2023 Telephone encounter Brenna lópez WENDY.MASTER ESTHETICIAN Work Phone: Obstetrics/Gynecology Comment on above: PRAF Start: 01-07-2023 End: 01-07-2023 ambulatory BRENNA ALTAMIRANO Facility:[facility] Start: 01-07-2023 End: 01-07-2023 ambulatory BRENNA ALTAMIRANO Facility:[facility] Start: 01-07-2023 End: 01-07-2023 Patient encounter procedure Brenna Altamirano TROMBONE SLIDE ASSEMBLER.MASTER ESTHETICIAN Work Phone: OB/Gynecology Comment on above: with [...] Start: 01-01-2023 End: 01-01-2023 ambulatory KATRINA ROPER Facility:[id number] Start: 11-26-2022 End: 11-26-2022 Patient encounter procedure Linh George MD Work Phone: OB/Gynecology Comment on above: Encounter for gyneco logical examination (general) (routine) without abnormal findings (Primary Dx) Start: 11-26-2022 End: 11-26-2022 Patient encounter status Linh George MD Work Phone: [facility] Start: 11-02-2022 End: 11-02-2022 Emergency department patient visit DR IAN MORAN MD Facility:B Start: 11-02-2022 End: 11-02-2022 Emergency department patient visit DR IAN MORAN MD [facility] Start: 09-13-2022 End: 09-13-2022 Patient encounter procedure Augusto Adames MD Work Phone: [facility] Comment on above: Sore throat (Primary Dx); Viral pharyngitis Start: 07-12-2022 End: 07-12-2022 Patient encounter procedure Michael Hernandez PA-C Work Phone: [facility] Comment on above: Vaginal yeast infect ion (Primary Dx) Start: 07-06-2022 Telephone encounter Augusto alfonso MD Work Phone: [facility] Comment on above: Patient Update (Need s time off from work. ) Start: 07-06-2022 End: 07-06-2022 Office outpatient visit 15 minutes Augusto Adames MD Work Phone: [facility] Comment on above: Sore throat (Primary Dx); Strep pharyngitis Start: 12-27-2021 End: 12-27-2021 Patient encounter procedure Demetrius Bravo PA-C Work Phone: [facility] Comment on above: Viral illness (Prima ry Dx) Start: 11-30-2021 End: 11-30-2021 Patient encounter procedure Deana Navarro DO Work Phone: [facility] Comment on above: Laryngitis (Primary Dx); Sinobronchitis [...] Monitoring Start: 05-12-2021 ambulatory [facility] Comment on above: Population Health Na vigation Outreach (ob/peds) Start: 05-12-2021 End: 05-12-2021 Patient encounter procedure Marciaroberto Beckett APRN.CNMulugeta Work Phone: OB/Gynecology Comment on above: 38 weeks gestation o f (Primary Dx); GDM (gestational diabetes mellitus), class A1 Start: 05-04-2021 End: 05-04-2021 Patient encounter procedure Samy Delaney MD Work Phone: [facility] Obstetrics and Gynecology Comment on above: Gestational [...] after 1st trimest 1/ gestation Melony Pineda TROMBONE SLIDE ASSEMBLER.CNM Work Phone: Start: 07-12-2023 Us nuchal cunningham slucency 1st gestation Harrison Cam MD Work Phone: Start: 06-06-2023 Antibody screen LINH GEORGE Comment on above: Order Comment: Speci men Type: BLOOD SPECIMENOrdering Facility: [facility] Address: [address] [place] [address] Performed By: #### T SPN ####[facility] MAIN BLOOD BANKCLIA [id number] [address] Start: 02-23-2023 Antibody screen HARPREET BELTRE Comment on above: Order Comment: Speci men Type: BLOOD SPECIMEN Ordering Facility: [facility] Address: [address] [place] [address] Performed By: #### T SPN #### [facility] BLOOD BANK CLIA [id number] [address] Start: 01-07-2023 Antibody screen LINH GEORGE Comment on above: Order Comment: Speci men Type: BLOOD SPECIMENOrdering Facility: [facility] Address: [address] [place] [address] Performed By: #### T SPN ####CC MAIN BLOOD BANKCLIA [id number] [address] JOYCELYN Start: 01-07-2023 Adult depression scr eening assessment Treatment Wstr Work Phone: Start: 09-13-2022 Iadna streptococcus group a amplified probe tq Augusto Adames MD Work Phone: Start: 07-06-2022 Iaad ia streptococcu s group a Augusto Adames MD Work Phone: Start: 05-19-2021 Us preg uterus after 1st trimest 02/07 gestation Marcia Beckett TROMBONE SLIDE ASSEMBLER.CNM Work Phone: Start: 05-12-2021 URINE OB DIP B/O Angel Beckett TROMBONE SLIDE ASSEMBLER.CNM Work Phone: Start: 05-04-2021 Urnls dip stick/tabl et rgnt auto w/o microscopy Samy Delaney MD Work Phone: Start: 05-04-2021 Us preg uterus after 1st trimest 02/07 gestation Samy Delaney MD Work Phone: Plan of Treatment Date Care Activity Detail Author Start: 11-09-2033 Urine microalbumin profile DTaP,Tdap,Td Vaccine (4 - Td or Tdap) [facility] Start: 03-02-2031 Urine microalbumin profile [facility] Start: 06-05-2028 Screening for malignant neoplasm of cervix [facility] Start: 11-14-2025 Screening for malignant neoplasm of cervix Pap Testing [facility] Start: 06-05-2024 Screening for malignant neoplasm of cervix Cervical Cancer Screening [facility] Start: 01-20-2024 Annual PCP Team Chronic Disease Visit Annual PCP Team Chronic Disease Visit [facility] Start: 01-19-2024 End: 01-19-2024 Patient encounter procedure 01/19/2024 10:20 AM EST Office Visit [facility] [address] [facility] [address] [place] [address] Camila Power, TROMBONE SLIDE ASSEMBLER.MASTER ESTHETICIAN [address] [place], [place] [id number] Annual wellness [facility] Comment on above: Annual wellness Start: 01-09-2024 End: 01-09-2024 Patient encounter procedure 01/09/2024 3:40 PM EST Office Visit OB/Gynecology [address] [place] [address] Lg Munson MD [address] [place] [address] Incision check OB/Gynecology Comment on above: Incision check Start: 01-08-2024 Anxiety Screening Anxiety Screening [facility] Start: 01-08-2024 Depression Screening Depression Screening [facility] Start: 12-22-2023 End: 12-22-2023 Patient encounter procedure 12/22/2023 10:20 AM EST Routine Office Visit OB/Gynecology [address] [place], [place] [id number] Lg Munson MD [address] [place] [address] OB- Pre Op C/S 12/29 @ [facility] OB/Gynecology Comment on above: OB- Pre Op C/S 12/29 @ [facility] Start: 12-15-2023 End: 12-15-2023 Patient encounter procedure OB/Gynecology Comment on above: NST NST/OB Start: 12-15-2023 End: 12-15-2023 ambulatory Hematology/Oncology Comment on above: IRON SUCROSE/D2-2/AUTH EXP 02/07/24* ok per nurse Start: 12-08-2023 End: 12-08-2023 Patient encounter procedure Maternal Medicine Comment on above: Growth Growth/OB Start: 12-08-2023 End: 12-08-2023 ambulatory 12/08/2023 12:00 PM EDT Visit (SP) Office Hematology/Oncology [address] [place] [id number] START IRON SUCROSE/D1-2/AUTH EXP 02/07/24* Hematology/Oncology Comment on above: START IRON SUCROSE/D1-2/AUTH EXP 4* Start: 11-30-2023 End: 11-30-2023 Patient encounter procedure 11/30/2023 10:00 AM EDT Appointment OB/Gynecology [address] [place] [address] L&[place] [address] [address] [place] [id number] Phone consult with Mya. Mya will call you from [phone] at this time. OB/Gynecology Comment on above: Phone consult with Mya. Mya will call you from [phone] at this time. Start: 11-24-2023 End: 02-23-2024 Cobalamin (Vitamin B12) [Mass/volume] in Serum or Plasma VITAMIN B12 Lab Routine Anemia complicating , third trimester Expected: 11/24/2023, Expires: 02/23/2024 [facility] Comment on above: Expected: 11/24/2023, Expires: Start: 11-24-2023 End: 02-23-2024 Erythropoietin (EPO) [Units/volume] in Serum or Plasma ERYTHROPOIETIN/EPO Lab Routine Anemia complicating , third trimester Expected: 11/24/2023, Expires: 02/23/2024 [facility] Comment on above: Expected: 11/24/2023, Expires: Start: 11-24-2023 End: 02-23-2024 Ferritin [Mass/volume] in Serum or Plasma FERRITIN Lab Routine Anemia complicating , third trimester Expected: 11/24/2023, Expires: 02/23/2024 [facility] Work Phone: Comment on above: Expected: 11/24/2023, Expires: Start: 11-24-2023 End: 02-23-2024 Folate [Mass/volume] in Serum or Plasma FOLATE, SERUM Lab Routine Anemia complicating , third trimester Expected: 11/24/2023, Expires: 02/23/2024 [facility] Comment on above: Expected: 11/24/2023, Expires: Start: 11-24-2023 End: 02-23-2024 Iron and Iron binding capacity panel - Serum or Plasma IRON AND TIBC Lab Routine Anemia complicating , third trimester Expected: 11/24/2023, Expires: 02/23/2024 [facility] Comment on above: Expected: 11/24/2023, Expires: Start: 11-24-2023 End: 02-23-2024 Methylmalonate [Moles/volume] in Serum or Plasma METHYLMALONIC ACID Lab Routine Anemia complicating , third trimester Expected: 11/24/2023, Expires: 02/23/2024 [facility] Comment on above: Expected: 11/24/2023, Expires: Start: 11-24-2023 End: 02-23-2024 Pyridoxine [Mass/volume] in Serum or Plasma VITAMIN B6/PYRIDOXIN Lab Routine Anemia complicating , third trimester Expected: 11/24/2023, Expires: 02/23/2024 [facility] Comment on above: Expected: 11/24/2023, Expires: Start: 11-24-2023 End: 02-23-2024 RETICULOCYTE COUNT RETICULOCYTE COUNT Lab Routine Anemia complicating , third trimester Expected: 11/24/2023, Expires: 02/23/2024 [facility] Comment on above: Expected: 11/24/2023, Expires: Start: 11-24-2023 End: 11-24-2023 Patient encounter procedure 11/24/2023 1:50 PM EDT Routine Office Visit OB/Gynecology [address] [place], [place] [id number] Harrison Cam MD [address] [place], [place] [id number] OB OB/Gynecology Comment on above: OB Start: 11-18-2023 RSV Vaccine (1 - Risk 1-dose series) RSV Vaccine (1 - Risk 1-dose series) [facility] Start: 11-15-2023 PAP TESTING PAP TESTING [facility] Start: 11-15-2023 Screening for malignant neoplasm of cervix Pap Testing [facility] Start: 11-15-2023 End: 11-15-2023 Nursing evaluation of patient and report 11/15/2023 9:00 AM EDT Nurse Visit Endocrinology [address] [place] [id number] Sarah Palumbo, RN [address] [address] Gestational diabetes mellitus (GDM), antepartum, gestational diabetes method of ... Endocrinology Comment on above: Gestational diabetes mellitus (GDM), ant epartum, gestational diabetes method of ... Start: 11-11-2023 RSV Vaccine (1 - Risk 1-dose series) RSV Vaccine (1 - Risk 1-dose series) [facility] Start: 11-10-2023 End: 11-10-2023 ambulatory 11/10/2023 2:30 PM EDT Visit (SP) Office Hematology/Oncology [address] [place] [address] 2ND Hematology/Oncology Comment on above: 2ND Start: 11-10-2023 End: 11-10-2023 Patient encounter procedure 11/10/2023 11:40 AM EDT Routine Office Visit OB/Gynecology [address] [place] [address] Harrison Cam MD [address] [place] [address] OB-growth u/s first OB/Gynecology Comment on above: OB-growth u/s first Start: 11-10-2023 End: 11-10-2023 Patient encounter procedure 11/10/2023 10:30 AM EDT Routine Office Visit Maternal Medicine [address] [place] [address] growth- twins Maternal Medicine Comment on above: growth- twins Start: 11-09-2023 End: 11-09-2023 Nursing evaluation of patient and report 11/09/2023 10:00 AM EDT Nurse Visit Endocrinology [address] [place] [address] Sarah Palumbo RN [address] [address] Gestational diabetes mellitus (GDM), antepartum, gestational diabetes method of control unspecified [O24.419] Endocrinology Comment on above: Gestational diabetes mellitus (GDM), ant epartum, gestational diabetes method of control unspecified [O24.419] Start: 11-08-2023 End: 11-08-2023 ambulatory 11/08/2023 3:30 PM EDT Visit (SP) Office Hematology/Oncology [address] [place] [address] 2ND Hematology/Oncology Comment on above: 2ND Start: 11-03-2023 End: 11-03-2023 ambulatory 11/03/2023 10:00 AM EDT Visit (SP) Office Hematology/Oncology [address] [place] [address] 2ND Hematology/Oncology Comment on above: 2ND Start: 10-26-2023 End: 10-26-2023 Patient encounter procedure 10/26/2023 9:40 AM EDT Routine Office Visit OB/Gynecology [address] [place] [address] Linh Zimmerman MD [address] [place] [address] OB OB/Gynecology Comment on above: OB Start: 10-26-2023 End: 10-26-2023 ambulatory 10/26/2023 8:15 AM EDT Results Only Misty Azul [facility] [address] [place] [address] 3 hour GTT Mistyjaxson Jadewn [facility] Comment on above: 3 hour GTT Start: 10-16-2023 End: 01-15-2024 CBC W Auto Differential panel - Blood COMPLETE BLOOD COUNT AND DIFFERENTIAL Lab Routine 22 weeks gestation of Dichorionic diamniotic twin in first trimester Expected: 10/16/2023 (Approximate), Expires: 01/15/2024 [facility] Comment on above: Expected: 10/16/2023 (Approximate), Expi res: 01/15/2024 Start: 10-16-2023 End: 01-15-2024 GESTATIONAL GLUCOSE SCREEN, 1-HOUR, 50 GRAM, NON-FASTING GESTATIONAL GLUCOSE SCREEN, 1-HOUR, 50 GRAM, NON-FASTING Lab Routine 22 weeks gestation of Dichorionic diamniotic twin in first trimester Expected: 10/16/2023 (Approximate), Expires: 01/15/2024 [facility] Work Phone: Comment on above: Expected: 10/16/2023 (Approximate), Expi res: 01/15/2024 Start: 10-16-2023 End: 01-15-2024 SYPHILIS TOTAL W/REFLEX SYPHILIS TOTAL W/REFLEX Lab Routine 22 weeks gestation of Dichorionic diamniotic twin in first trimester Expected: 10/16/2023 (Approximate), Expires: 01/15/2024 [facility] Comment on above: Expected: 10/16/2023 (Approximate), Expi res: 01/15/2024 Start: 10-14-2023 End: 01-13-2024 GEST GLUC ALVIN, 3-HR, 100 GM, FASTING GEST GLUC ALVIN, 3-HR, 100 GM, FASTING Lab Routine Abnormal glucose complicating Expected: 10/14/2023, Expires: 01/13/2024 [facility] Work Phone: Comment on above: Expected: 10/14/2023, Expires: Start: 10-13-2023 End: 10-13-2023 Patient encounter procedure OB/Gynecology Comment on above: Growth Twins Growth/ Glucose Test /OB Start: 10-09-2023 Covid-19 Vaccine () Covid-19 Vaccine () [facility] Start: 10-09-2023 Covid-19 Vaccine () Covid-19 Vaccine () [facility] Start: 10-09-2023 Influenza vaccination [facility] Start: 09-15-2023 End: 09-15-2023 Patient encounter procedure OB/Gynecology Comment on above: Growth twins OB Start: 08-16-2023 End: 08-16-2023 Patient encounter procedure OB/Gynecology Comment on above: Anatomy-twins OB Start: 07-29-2023 End: 07-29-2023 Patient encounter procedure 07/29/2023 9:00 AM EDT Routine Office Visit OB/Gynecology [address] [place] [address] Harrison Cam MD [address] [place] [address] 16 week ob OB/Gynecology Comment on above: 16 week ob Start: 07-07-2023 End: 07-07-2023 Patient encounter procedure 07/07/2023 8:30 AM EDT Appointment [facility] ULTR[facility] [address] [place] [address] Dichorionic diamniotic twin in first trimester [O30.041] [facility] Comment on above: Dichorionic diamniotic twin in first trimester [O30.041] Start: 07-05-2023 End: 07-05-2023 Patient encounter procedure 07/05/2023 2:20 PM EDT Routine Office Visit OB/Gynecology [address] [place] [address] Harrison Cam MD [address] [place] [address] OB/Gynecology Comment on above: Start: 07-05-2023 End: 07-04-2024 NUCHAL TRANSLUCENCY [facility]I NUCHAL TRANSLUCENCY [facility] Anc Imaging Routine Dichorionic diamniotic twin in first trimester Expected: 07/05/2023, Expires: 07/04/2024 [facility] Work Phone: Comment on above: Expected: 07/05/2023, Expires: Start: 06-06-2023 End: 06-05-2024 NUCHAL TRANSLUCENCY WHI NUCHAL TRANSLUCENCY [facility] Anc Imaging Routine with uncertain dates in first trimester History of gestational diabetes mellitus Forceps or vacuum extractor delivery Expected: 06/06/2023, Expires: 06/05/2024 [facility] Comment on above: Expected: 06/06/2023, Expires: 5 Start: 06-06-2023 End: 06-05-2024 OBSTETRIC ULTRASOUND WHI OBSTETRIC ULTRASOUND [facility]I Anc Imaging Routine with uncertain dates in first trimester Expected: 06/06/2023, Expires: 06/05/2024 [facility] Comment on above: Expected: 06/06/2023, Expires: 5 Start: 06-06-2023 End: 09-05-2023 TYPE + SCREEN [facility] Comment on above: Expected: 06/06/2023, Expires: 4 Start: 06-06-2023 End: 06-06-2023 Patient encounter procedure 06/06/2023 8:45 AM EDT Initial Office Visit OB/Gynecology [address] [place], [place] [id number] Melony Pineda APRN.[facility] [address] [place] [address] OB/Gynecology Start: 02-07-2023 Behavioral Health Screening Behavioral Health Screening [facility] Start: 02-07-2023 Depression Assessment Depression Assessment [facility] Start: 2023 Screening for malignant neoplasm of cervix HPV Testing [facility] Start: 01-07-2023 End: 04-08-2023 CARRIER SCREEN, STANDARD [facility] Work Phone: Comment on above: Expected: 01/07/2023, Expires: 4 Start: 01-07-2023 End: 04-08-2023 Hemoglobin A1c in Blood [facility] Work Phone: Comment on above: Expected: 01/07/2023, Expires: 4 Start: 01-07-2023 End: 04-08-2023 HEMOGLOBIN EVALUATION CASCADE [facility] Work Phone: Comment on above: Expected: 01/07/2023, Expires: 4 Start: 01-07-2023 End: 04-08-2023 Hepatitis B virus surface Ag [Presence] in Serum [facility] Work Phone: Comment on above: Expected: 01/07/2023, Expires: 4 Start: 01-07-2023 End: 04-08-2023 Hepatitis C virus Ab [Presence] in Serum [facility] Work Phone: Comment on above: Expected: 01/07/2023, Expires: 4 Start: 01-07-2023 End: 04-08-2023 HIV 1+2 Ab [Presence] in Serum or Plasma by Immunoassay [facility] Work Phone: Comment on above: Expected: 01/07/2023, Expires: 4 Start: 01-07-2023 End: 04-08-2023 RUBELLA IGG AB [facility] Work Phone: Comment on above: Expected: 01/07/2023, Expires: 4 Start: 01-07-2023 End: 04-08-2023 SYPHILIS TOTAL W/REFLEX [facility] Work Phone: Comment on above: Expected: 01/07/2023, Expires: 4 Start: 01-07-2023 End: 04-08-2023 TYPE + SCREEN [facility] Work Phone: Comment on above: Expected: 01/07/2023, Expires: 4 Start: 10-08-2022 Covid-19 Vaccine ( season) Covid-19 Vaccine ( season) [facility] Start: 10-08-2022 Influenza vaccination [facility] Start: 02-07-2022 DEPRESSION ASSESSMENT DEPRESSION ASSESSMENT [facility] Start: 10-08-2021 Influenza vaccination [facility] Start: 02-07-2021 DEPRESSION ASSESSMENT DEPRESSION ASSESSMENT [facility] Start: 10-08-2020 Influenza vaccination INFLUENZA (#1) [facility] Start: 02-04-2012 Hepatitis B Vaccine (1 of 3 - 19+ 3-dose series) Hepatitis B Vaccine (1 of 3 - 19+ 3-dose series) [facility] Start: 2011 Annual PCP Team Chronic Disease Visit Annual PCP Team Chronic Disease Visit [facility] Start: 2011 Anxiety Screening Anxiety Screening [facility] Start: 2011 Depression Screening Depression Screening [facility] Start: 2011 Spirometry Spirometry [facility] Start: 2005 Adult depression screening assessment DEPRESSION SCREENING [facility] Start: 1999 Pneumococcal vaccination Pneumococcal Vaccine (1 - PCV) [facility] Start: 1998 COVID-19 VACCINE (#1) COVID-19 VACCINE (#1) [facility] Start: 1998 COVID-19 VACCINE (1) COVID-19 VACCINE (1) [facility] Start: 1993 COVID-19 VACCINE (#1) COVID-19 VACCINE (#1) [facility] Start: 1993 HEPATITIS B (1 of 3 - 3-dose series) HEPATITIS B (1 of 3 - 3-dose series) [facility] Start: 1993 Hepatitis B Vaccine (1 of 3 - 3-dose series) Hepatitis B Vaccine (1 of 3 - 3-dose series) [facility] Bacteria identified in Urine by Culture URINE CULTURE Microbiology Routine with uncertain dates in first trimester Encounter for supervision of other normal in first trimester 10 weeks gestation of 01/07/2023 9:34 AM EST [facility] Work Phone: Bacteria identified in Urine by Culture URINE CULTURE Microbiology Routine with uncertain dates in first trimester 06/06/2023 9:48 AM EDT [facility] Chlamydia trachomatis+Neisseria gonorrhoeae DNA [Presence] in Unspecified specimen by JOEL with probe detection GONORRHEA/CHLAMYDIA NAAT Lab Routine with uncertain dates in first trimester Encounter for supervision of other normal in first trimester 10 weeks gestation of 01/07/2023 9:34 AM EST [facility] Work Phone: Chlamydia trachomatis+Neisseria gonorrhoeae DNA [Presence] in Unspecified specimen by JOEL with probe detection GONORRHEA/CHLAMYDIA NAAT Lab Routine with uncertain dates in first trimester 06/06/2023 9:48 AM EDT [facility] nonstress test NON-S TRESS TEST Procedures Routine 39 weeks gestation of GDM (gestational diabetes mellitus), class A1 Ordered: 05/19/2021 [facility] Work Phone: Comment on above: Ordered: 05/19/2021 OBSTETRIC ULTRASOUND WHI OBSTETRIC ULTRASOUND [facility]I Anc Imaging Routine 38 weeks gestation of GDM (gestational diabetes mellitus), class A1 Ordered: 05/12/2021 [facility] Work Phone: Comment on above: Ordered: 05/12/2021 End: 01-13-2024 OBSTETRIC ULTRASOUND WHI OBSTETRIC ULTRASOUND [facility]I Anc Imaging Routine Dichorionic diamniotic twin in first trimester Once per month for 8 Occurrences starting 08/16/2023 until 01/13/2024 [facility] Work Phone: Comment on above: Once per month for 8 Occurrences startin g 08/16/2023 until 01/13/2024 PAP TEST PAP TEST Lab Rou jessica with uncertain dates in first trimester Screening for cervical cancer Screening for human papillomavirus 06/06/2023 9:48 AM EDT [facility] POC EMT I/85 ULTRASOUND POC EMT I/85 ULTRASO UND Anc Imaging Routine with uncertain dates in first trimester Ordered: 01/07/2023 [facility] Work Phone: Comment on above: Ordered: 01/07/2023 POC EMT I/85 ULTRASOUND POC EMT I/85 ULTRASO UND Anc Imaging Routine with uncertain dates in first trimester Ordered: 06/06/2023 [facility] Work Phone: Comment on above: Ordered: 06/06/2023 ROUTINE, GR OUP B STREP PCR ROUTINE, GROUP B STREP PCR Microbiology Routine 36 weeks gestation of Gestational diabetes mellitus, class A1 Ordered: 05/04/2021 [facility] Work Phone: Comment on above: Ordered: 05/04/2021 ROUTINE, GR OUP B STREP PCR ROUTINE, GROUP B STREP PCR Microbiology Routine 35 weeks gestation of 12/15/2023 11:31 AM EST [facility] Work Phone: UA DIP, URINE (POC) UA DIP, URIN E (POC) Lab Routine 36 weeks gestation of Ordered: 05/04/2021 [facility] Work Phone: Comment on above: Ordered: 05/04/2021 URINE OB DIP B/O URINE OB DIP B/ O Lab Routine 39 weeks gestation of GDM (gestational diabetes mellitus), class A1 Ordered: 05/19/2021 [facility] Work Phone: Comment on above: Ordered: 05/19/2021 URINE OB DIP B/O URINE OB DIP B/ O Lab Routine Supervision of high risk in third trimester Anemia complicating , third trimester Gestational diabetes mellitus (GDM), antepartum, gestational diabetes method of control unspecified Dichorionic diamniotic twin in third trimester Benign gestational thrombocytopenia in third trimester (HCC) Ordered: 12/08/2023 [facility] Work Phone: Comment on above: Ordered: 12/08/2023 [facility] Immunizations Immunization Date Immunization Notes Care Provider [facility] 11-24-2023 respiratory syncytia l virus (RSV) vaccine, bivalent (ABRYSVO) Harrison Cam MD Work Phone: [facility] 11-10-2023 influenza, seasonal, injectable Harrison Cam MD Work Phone: [facility] 11-10-2023 tetanus toxoid, redu isabel diphtheria toxoid, and acellular pertussis vaccine, adsorbed Harrison Cam MD Work Phone: [facility] 12-04-2021 influenza virus vacc ine, unspecified formulation Demetrius Bravo PA-C Work Phone: [facility] 03-02-2021 tetanus toxoid, redu isabel diphtheria toxoid, and acellular pertussis vaccine, adsorbed Samy Delaney MD Work Phone: [facility] 05-02-2019 tuberculin skin test ; purified protein derivative solution, intradermal Ob Ultrasound Work Phone: [facility] 04-24-2019 tuberculin skin test ; purified protein derivative solution, intradermal Ob Ultrasound Work Phone: [facility] 06-26-2008 human papilloma viru s vaccine, quadrivalent Samy Delaney MD Work Phone: [facility] Work Phone: 02-23-2008 hepatitis A vaccine, pediatric/adolescent dosage, 2 dose schedule Samy Delaney MD Work Phone: [facility] Work Phone: 02-23-2008 human papilloma viru s vaccine, quadrivalent Samy Delaney MD Work Phone: [facility] Work Phone: 08-22-2006 hepatitis A vaccine, pediatric/adolescent dosage, 2 dose schedule Samy Delaney MD Work Phone: [facility] Work Phone: 08-22-2006 human papilloma viru s vaccine, quadrivalent Samy Delaney MD Work Phone: [facility] Work Phone: 08-22-2006 meningococcal polysaccharide (groups A, C, Y and W-135) diphtheria toxoid conjugate vaccine (MCV4P) Samy Delaney MD Work Phone: [facility] Work Phone: 08-22-2006 tetanus toxoid, redu isabel diphtheria toxoid, and acellular pertussis vaccine, adsorbed Samy Delaney MD Work Phone: [facility] Work Phone: 12-14-2004 influenza virus vacc ine, whole virus Samy Delaney MD Work Phone: [facility] Work Phone: Payers Date Payer Category Payer Medicaid [employer] [id number] 2022-Present [phone] [address] [place] [address] Medicaid [id number] 2022 Medicaid [id number] 2022 Private Health Insurance [employer]ICAID [facility] [id number] 2022-Present [address] [address] [place] [address] Medicaid [id number] 2021 Unknown [id number] 2021 Medicaid MEDICAID [facility] MEDICAID [id number] 2021-Present [phone] [address] [place] [address] Medicaid [id number] 1993 Unknown [id number] 1993 Unknown [id number] 1993 Unknown [id number] 1993 Unknown [id number] Social History Date Type Detail Facility Start: 11-04-2014 End: 01-07-2023 Tobacco smoking status NHIS Never smoked tobacco [facility] Start: 11-04-2014 End: 01-07-2023 Tobacco use and exposure Smokeless tobacco non-user [facility] Start: 05-04-2021 End: 12-22-2023 Alcohol intake Ex-drinker (finding) [facility] Start: 11-13-2020 Education 21 [facility] Start: 09-02-2020 [facility] Start: 1995 Sex Assigned At Not on file [facility] Start: 04-24-2021 End: 12-27-2021 Exposure to SARS-CoV-2 (event) Not sure [facility] Start: 09-13-2022 End: 10-13-2023 History of Social function [facility] Start: 09-13-2022 End: 10-13-2023 Tobacco use panel [facility] National Score (1-100), lower number is lower risk 88 [facility] Sex Assigned At Female [facility] NEGATED: Highlighted rowStart: JORDIF History of tobacco use Passive smoker [facility] Work Phone: Medical Equipment Procedure Code Equipment Code Equipment Original Text Equipment Identifier Dates [id number], [id number] Start: 03-16-2021 Comment on above: 1 Strip four times d aily. Use as instructed 1 Each four times da jose. Use as instructed Goals Date Patient Goal Desired Activity /State Personal health goal Personal health goal Functional Status Date Assessment Result Facility 06-27-2023 Functional Status Independent [facility] 06-27-2023 Functional Status Independent [facility] 02-06-2023 Functional Status Ambulation in [place], Ambulation in Room [facility] 11-02-2022 Functional Status Activity Alexander tance Independent [facility] 11-02-2022 Functional Status ID band on, Call device within reach, Bed in low position, Wheels locked, Upper/Half-Length side-rails up, Visitor at bedside [facility] Mental Status Date Assessment Result Facility 06-27-2023 Mental Status Orientation Oriented x 4 [facility] 06-27-2023 Mental Status [facility] 02-06-2023 Mental Status Oriented x 4 [facility] 11-02-2022 Mental Status Orientation Oriented x 4 [facility] 11-02-2022 Mental Status [facility] Clinical Notes 03-04-2021 to 12-23-2023 Lg Munson MD - 12/23/2023 9:15 AM Lg Mcarthur MD - 12/23/2023 9:12 AM Lg Mcarthur MD - 12/23/2023 9:12 AM ESTPrenatal Quick Notes - Lg Munson MD - 12/22/2023 10:44 AM EST Note Date & Type Note Facility 12-23-2023 Note HNO ID: [id number] Author: LG MUNSON MD Service: ? Author [...] Reactive x 2 SIGNATURE: Lg Munson DO [facility] 12-23-2023 History of Presen t illness Narrative [...] Lg Munson DO documented in this encounter [facility] 12-23-2023 History and physical note DATE OF [...] 44.3 mm. Vol 43.580 cm . Anterior, Ylrl-Jzzhp-Dhcnywf disease Miscarriage 02/2023 depression After late miscarriage-no [...] Medical Decision Making Level: 4 - Moderate [facility] 12-23-2023 History and physical note DATE OF [...] 44.3 mm. Vol 43.580 cm . Anterior, Ptjs-Tpvxp-Tgyffsv disease Miscarriage 02/2023 depression After late miscarriage-no [...] 4 - Moderate documented in this encounter [facility] 12-22-2023 Progress note Formatting of t his note might be different from the original. SW- Dry cough for 2 weeks. No fevers, CP, SOB. Some abdominal pain from coughing. No vb, lof. Good FM x 2 PE: Gen- NAD, well appearing Abd- Soft, gravid, NT See flowsheet A/p 36 wk gestation - Pre op today Lg Munson DO [facility] 12-22-2023 Miscellaneous Notes SW- Dry cough for 2 weeks. No fevers, CP, SOB. Some abdominal pain from coughing. No vb, lof. Good FM x 2 PE: Gen- NAD, well appearing Abd- Soft, gravid, NT See flowsheet A/p 36 wk gestation - Pre op today Lg Munson DO documented in this encounter [facility] 12-22-2023 Instructions Taryn Crabtree MA - 12/22/2023 10:25 AM EST SEQUENTIAL SCREENINGS The [facility] offers sequential screenings for women who [...] It will require an appointment with our carpet technician. This is not an ultrasound performed [...] the above symptoms, contact our office at [phone] and ask to speak with a nurse. After hours, you can call doctors registry at [phone] OR call [facility] at [phone] and ask to have the doctor nursing department chairperson paged. If you consider this an emergency, dial 10-08- or go to your nearest emergency department. NEED HELP? Are you dealing with a violent or abusive relationship? Are you a victim of rape or sexual assult? Call [facility] ([place]) 24 hour Crisis Hotline: 803.570.8929 or 905-065-5937. MANUAL Your Guide to a Healthy manual is now on-line. Visit [email or web address] ancyGuide to download your free copy documented in this encounter [facility] 12-15-2023 Progress note Formatting of t his [...] reviewed, Kick counts reviewed. Harrison Cam MD [facility] 12-15-2023 Miscellaneous Notes KJ - VB No. [...] Harrison Cam MD documented in this encounter [facility] 12-15-2023 Note HNO ID: [id number] Author: HARRISON CAM MD Service: ? Author [...] Interpretation: Reactive x2 SIGNATURE: Harrison Cam MD [facility] 12-15-2023 History of Presen t illness Narrative [...] Harrison Cam MD documented in this encounter [facility] 12-15-2023 Instructions Yue Johnson MA - 12/15/2023 9:26 AM EST SEQUENTIAL SCREENINGS The [facility] offers sequential screenings for women who [...] It will require an appointment with our carpet technician. This is not an ultrasound performed [...] the above symptoms, contact our office at [phone] and ask to speak with a nurse. After hours, you can call doctors registry at [phone] OR call [facility] at [phone] and ask to have the doctor nursing department chairperson paged. If you consider this an emergency, dial 9-1-8 or go to your nearest emergency department. NEED HELP? Are you dealing with a violent or abusive relationship? Are you a victim of rape or sexual assult? Call [facility] ([place]) 24 hour Crisis Hotline: 957.662.2929 or 007-230-1893. MANUAL Your Guide to a Healthy manual is now on-line. Visit [email or web address] ancyGuide to download your free copy documented in this encounter [facility] 12-08-2023 Progress note Formatting of t his [...] 1 week for GBS Lg Munson DO [facility] 12-08-2023 Miscellaneous Notes SW- pt doing well. [...] Lg Munson DO documented in this encounter [facility] 12-08-2023 Note Indication Evaluation of growth, Di-Di [...] 7 oz EFW by: Hadlock (HC-AC-FL) Extended Office Services Associate 5.2 mm Extremities / Bony Struc FL [...] 10 oz EFW by: Hadlock (HC-AC-FL) Extended Office Services Associate 5.1 mm Extremities / Bony Struc FL / HC 0.22 Other Structures FHR 154 bpm Fetus A: Anatomy Lateral ventricles: normal Cavum septi pellucidi: normal (more content not included)... [facility] 12-08-2023 Instructions Heather Hanson MA - 12/08/2023 1:58 PM EDT SEQUENTIAL SCREENINGS The [facility] offers sequential screenings for women who [...] It will require an appointment with our carpet technician. This is not an ultrasound performed [...] the above symptoms, contact our office at [phone] and ask to speak with a nurse. After hours, you can call doctors registry at [phone] OR call [facility] at [phone] and ask to have the doctor nursing department chairperson paged. If you consider this an emergency, dial 9-1- or go to your nearest emergency department. NEED HELP? Are you dealing with a violent or abusive relationship? Are you a victim of rape or sexual assult? Call [facility] ([place]) 24 hour Crisis Hotline: 149.219.2244 or 760-587-2355. MANUAL Your Guide to a Healthy manual is now on-line. Visit [email or web address] ancyGuide to download your free copy documented in this encounter [facility] 12-07-2023 Telephone encounter Note Spoke with patient and scheduled first dose for tomorrow. Patient will stop by HemOnc office to schedule second dose to coincide with her next OBGYN appt. Danielle Thomas [facility] 12-07-2023 Miscellaneous Notes Spoke with patient and scheduled first dose for tomorrow. Patient will stop by HemOnc office to schedule second dose to coincide with her next OBGYN appt. Danielle Thomas Treatment plan signed and PA approved for Venofer 200 mg IV x 2 doses. Ready to schedule. documented in this encounter [facility] 12-07-2023 Telephone encounter Note Treatment plan signed and PA approved for Venofer 200 mg IV x 2 doses. Ready to schedule. [facility] 12-01-2023 Telephone encounter Note Patient notified. Orders were already filed by KJ for 2 additional doses. Prior auth pending. Laisha Marsh RN [facility] 12-01-2023 Miscellaneous Notes Patient notified. Orders were already filed by KJ for 2 additional doses. Prior auth pending. Laisha Marsh RN ----- Message from Harrison Cam MD sent at 12/01/2023 12:11 PM EDT ----- Recommend 2 additional doses of IV iron. Discussed patient with . Harrison Cam MD documented in this encounter [facility] 12-01-2023 Note HNO ID: [id number] Author: LEONORA CHAPMAN RN Service: ? Author [...] (H) Requesting 2 more doses of Venofer. [facility] 12-01-2023 History of Presen t illness Narrative [...] doses of Venofer. documented in this encounter [facility] 12-01-2023 Telephone encounter Note ----- Message from Harrison Cam MD sent at 12/01/2023 12:11 PM EDT ----- Recommend 2 additional doses of IV iron. Discussed patient with . Harrison Cam MD [facility] 11-30-2023 Nurse Note Summary: [employer] -Key Ring Java Scala Developer Note Hospital Name: [place] Completed by: Mya Melo, JARETH Date: November 30, 2023 [employer] Resource Time: 2.5 hours: Primary Referral Code: A Phone consult Cheli Osman [phone] Preferred Name: [facility] OB Provider: Harrison Cam [...] mother not visit her in the hospital. [facility] 11-30-2023 Nurse Note Summary: Shareight Share[employer] Java Scala Developer Note Hospital Name: [place] Completed by: Mya Melo RN Date: November 30, 2023 Share[employer] Resource Time: 2.5 hours: Primary Referral Code: A Phone consult Cheli Osman [phone] Preferred Name: [facility] Provider: Harrison Cam [...] in the hospital. documented in this encounter [facility] 11-28-2023 Telephone encounter Note Yes, can have redness and swelling at the injection site. Recommend taking a Benadryl or Claritin to help decrease symptoms. If worsening would want to see for follow up. Marcia Beckett APRN.CNM [facility] 11-28-2023 Miscellaneous Notes Yes, can have redness and swelling at the injection site. Recommend taking a Benadryl or Claritin to help decrease symptoms. If worsening would want to see for follow up. Marcia Beckett APRN.CNM 33w3d Patient had RSV vaccination on 11/23 documented in this encounter [facility] 11-28-2023 Telephone encounter Note 33w3d Patient had RSV vaccination on 11/23 [facility] 11-24-2023 Miscellaneous Notes Addended by: HARRISON CAM [...] Harrison Cam MD documented in this encounter [facility] 11-24-2023 Note Addended by: HARRISON CAM on: 11/24/2023 04:46 PM Modules accepted: Orders [facility] 11-24-2023 Progress note Formatting of t his [...] reviewed, Kick counts reviewed. Harrison Cam MD [facility] 11-24-2023 Instructions Viv Gaona MA - 11/24/2023 1:42 PM EDT SEQUENTIAL SCREENINGS The [facility] offers sequential screenings for women who [...] It will require an appointment with our carpet technician. This is not an ultrasound performed [...] the above symptoms, contact our office at [phone] and ask to speak with a nurse. After hours, you can call doctors registry at [phone] OR call [facility] at [phone] and ask to have the doctor nursing department chairperson paged. If you consider this an emergency, dial or go to your nearest emergency department. NEED HELP? Are you dealing with a violent or abusive relationship? Are you a victim of rape or sexual assult? Call [facility] ([place]) 24 hour Crisis Hotline: 235.233.8858 or 725-875-6324. MANUAL Your Guide to a Healthy manual is now on-line. Visit [email or web address] ancyGuide to download your free copy documented in this encounter [facility] 11-23-2023 Telephone encounter Note Agree with advice [facility] 11-23-2023 Miscellaneous Notes Agree with advice 32w5d [...] Neil Gaytan RN documented in this encounter [facility] 11-23-2023 Telephone encounter Note 32w5d Twins- Dichorionic-diamniotic [...] needs to be given. Neil Gaytan RN [facility] 11-15-2023 Note HNO ID: [id number] Author: SARAH PALUMBO RN Service: ? Author Type: Registered Nurse Type: Progress Notes Filed: 11/15/2023 09:33 Note Text: DIABETES SELF-MANAGEMENT EDUCATION AND SUPPORT Location: [place] Type of visit: Virtual (with video) individual I have communicated my name and active licensure. The patient's identity and physical location were verified at the time of this visit. Either the patient or their legal sales representative public utilities has been informed of the risks and [...] Race/Ethnic Origin: White/ Does you culture or yazidism require any of the following: No cultural/sikhism practices affecting DM Do you have problems [...] Mean 44.3 mm. Vol 43.580 cm?. Anterior, Ljhr-Ehpjv-Nqfnawk disease Miscarriage 02/2023 depression After late miscarriage-no [...] of Low Bl (more content not included)... [facility] 11-15-2023 History of Presen t illness Narrative DIABETES SELF-MANAGEMENT EDUCATION AND SUPPORT Location: [place] Type of visit: Virtual (with video) individual I have communicated my name and active licensure. The patient's identity and physical location were verified at the time of this visit. Either the patient or their legal sales representative public utilities has been informed of the risks and [...] Race/Ethnic Origin: White/ Does you culture or yazidism require any of the following: No cultural/sikhism practices affecting DM Do you have problems [...] 44.3 mm. Vol 43.580 cm . Anterior, Guuc-Yeblj-Sfaopyx disease Miscarriage 02/2023 depression After late miscarriage-no [...] TIME: 8:52 AM documented in this encounter [facility] 11-13-2023 Note Indication Evaluation of growth, Follow-up [...] 0 oz EFW by: Hadlock (HC-AC-FL) Extended Office Services Associate 6.0 mm Extremities / Bony Struc FL [...] 11/10/2023 11:57 AM EDT SEQUENTIAL SCREENINGS The [facility] offers sequential screenings for women who [...] It will require an appointment with our carpet technician. This is not an ultrasound performed [...] the above symptoms, contact our office at [phone] and ask to speak with a nurse. After hours, you can call doctors registry at [phone] OR call [facility] at [phone] and ask to have the doctor nursing department chairperson paged. If you consider this an emergency, dial 9--1 or go to your nearest emergency department. NEED HELP? Are you dealing with a violent or abusive relationship? Are you a victim of rape or sexual assult? Call [facility] ([place]) 24 hour Crisis Hotline: 609.182.8019 or 936-983-3500. MANUAL Your Guide to a Healthy manual is now on-line. Visit [email or web address] ancyGuide to download your free copy documented in this encounter [facility] 11-10-2023 Note HNO ID: [id number] Author: HEATHER HANSON MA Service: ? Author Type: Market Risk Specialist Type: Progress Notes Filed: 11/10/2023 12:12 Note [...] severely ill: Yes Patient denies history of Guillain-[place] Syndrome (a severe paralytic illness): Yes Tdap Adacel injection was given without incident. See immunizations for details of immunizations administered today. VIS sheet provided: Yes Provider Dr Cam was present in office at time of injection. Heather Hanson MA [facility] 11-10-2023 History of Presen t illness Narrative [...] severely ill: Yes Patient denies history of Guillain-[place] Syndrome (a severe paralytic illness): Yes Tdap Adacel injection was given without incident. See immunizations for details of immunizations administered today. VIS sheet provided: Yes Provider Dr Cam was present in office at time of injection. Heather Hanson MA documented in this encounter [facility] 11-04-2023 Telephone encounter Note The patient is [...] Navigator intervention is needed at this time. [facility] 11-04-2023 Miscellaneous Notes The patient is active [...] at this time. documented in this encounter [facility] 10-31-2023 Telephone encounter Note Patient returned call and scheduled as directed. Danielle Thomas [facility] 10-31-2023 Miscellaneous Notes Patient returned call and [...] ordering. schedule on 2nd floor Monica Verduzco [facility] 10-31-2023 Telephone encounter Note Treatment plan signed and PA approved for IV iron. Ready for scheduling [facility] 10-28-2023 Telephone encounter Note Patient notified. Declines diabetic and nutrition consult appointments as patient had GDM in a previous . Summer Banegas RN [facility] 10-28-2023 Miscellaneous Notes Patient notified. Declines diabetic [...] pend supplies thanks documented in this encounter [facility] 10-28-2023 Telephone encounter Note filed [facility] 10-28-2023 Telephone encounter Note Orders pending. Please file. We will then contact patient. Summer Banegas RN [facility] 10-28-2023 Telephone encounter Note ----- Message from Lg Munson MD sent at 10/28/2023 8:18 AM EDT ----- Add to record and notify pt of GDM. Please pend supplies thanks [facility] 10-27-2023 Telephone encounter Note 3rd risk assessment form submitted 10/27/23 Kt Abdalla RN [facility] 10-27-2023 Miscellaneous Notes 3rd risk assessment form submitted 10/27/23 Kt Abdalla RN documented in this encounter [facility] 10-26-2023 Note HNO ID: [id number] Author: LEONORA CHAPMAN RN Service: ? Author [...] Mean 44.3 mm. Vol 43.580 cm?. Anterior, Masv-Jglmu-Qkteoqz disease Miscarriage 02/2023 depression After late miscarriage-no [...] provider for review and evaluation for treatment. [facility] 10-26-2023 History of Presen t illness Narrative [...] 44.3 mm. Vol 43.580 cm . Anterior, Cbzw-Sqdjh-Lmbmvvt disease Miscarriage 02/2023 depression After late miscarriage-no [...] evaluation for treatment. documented in this encounter [facility] 10-26-2023 Progress note Formatting of t his [...] this Flu vaccine considering Linh Siddiqui MD [facility] 10-26-2023 Miscellaneous Notes DM-Pt doing well. Denies [...] RSV vaccine during this Flu vaccine considering iLnh Siddiqui MD documented in this encounter [facility] 10-26-2023 Instructions Yue Johnson MA - 10/26/2023 8:13 AM EDT SEQUENTIAL SCREENINGS The [facility] offers sequential screenings for women who [...] It will require an appointment with our carpet technician. This is not an ultrasound performed [...] the above symptoms, contact our office at [phone] and ask to speak with a nurse. After hours, you can call doctors registry at [phone] OR call [facility] at [phone] and ask to have the doctor nursing department chairperson paged. If you consider this an emergency, dial 5-1-5 or go to your nearest emergency department. NEED HELP? Are you dealing with a violent or abusive relationship? Are you a victim of rape or sexual assult? Call [facility] ([place]) 24 hour Crisis Hotline: 627.451.1751 or 784-398-7171. MANUAL Your Guide to a Healthy manual is now on-line. Visit [email or web address] ancyGuide to download your free copy documented in this encounter [facility] 10-14-2023 Note Addended by: LAISHA MARSH on: 10/14/2023 05:26 PM Modules accepted: Orders [facility] 10-14-2023 Miscellaneous Notes Addended by: LAISHA MARSH [...] taking given anemia documented in this encounter [facility] 10-14-2023 Telephone encounter Note Patient notified. States she has been taking the ferrous sulfate 325mg every other day. She had to decrease it from daily d/t constipation issues. Should she get iron studies now? Can you please advise since SW left for the day. Aware we will call her back on Tuesday. Laisha Marsh RN [facility] 10-14-2023 Telephone encounter Note Left message for patient to call office. Laisha Marsh RN [facility] 10-14-2023 Telephone encounter Note See result note about anemia and abnormal 1 hr GTT. 3 hr GTT ordered. Now seeing that pt already has iron supplement previously ordered. Please see if patient is taking oral iron. May need iron studies and blood management referral if already taking given anemia [facility] 10-13-2023 Note Indication Evaluation of growth Di-Di [...] 6 oz EFW by: Hadlock (HC-AC-FL) Extended Office Services Associate 5.1 mm Extremities / Bony Struc FL [...] - RTO 2 weeks Melony Pineda APRN.CNM [facility] 10-13-2023 Miscellaneous Notes S: Cheli Osman is [...] Melony Pineda APRN.CNM documented in this encounter [facility] 10-13-2023 Instructions Yue Johnson MA - 10/13/2023 2:29 PM EDT SEQUENTIAL SCREENINGS The [facility] offers sequential screenings for women who [...] It will require an appointment with our carpet technician. This is not an ultrasound performed [...] the above symptoms, contact our office at [phone] and ask to speak with a nurse. After hours, you can call doctors registry at [phone] OR call [facility] at [phone] and ask to have the doctor nursing department chairperson paged. If you consider this an emergency, dial 9-1-0 or go to your nearest emergency department. NEED HELP? Are you dealing with a violent or abusive relationship? Are you a victim of rape or sexual assult? Call [facility] ([facility] 24 hour Crisis Hotline: 490.746.8269 or 811-305-2214. MANUAL Your Guide to a Healthy manual is now on-line. Visit [email or web address] [email or web address] to download your free copy documented in this encounter [facility] 09-15-2023 Progress note Formatting of t his note might be different from the original. Anatomy ultrasound reviewed. No abnormalities identified. Follow up as clinically indicated. Please place copy in ob chart. Cheli Dillard MD [facility] 09-15-2023 Miscellaneous Notes Anatomy ultrasound reviewed. No abnormalities identified. Follow up as clinically indicated. Please place copy in ob chart. Cheli Dillard MD documented in this encounter [facility] 09-15-2023 Note Indication Evaluation of growth Di [...] 6 oz EFW by: Hadlock (HC-AC-FL) Extended Office Services Associate 6.5 mm Extremities / Bony Struc FL [...] 4 oz EFW by: Hadlock (HC-AC-FL) Extended Office Services Associate 7.2 mm Extremities / Bony Struc FL [...] - RTO 4 wks Lg Munson DO [facility] Work Phone: 09-15-2023 Miscellaneous Notes SW- pt [...] Lg Munson DO documented in this encounter [facility] 09-15-2023 Instructions Taryn Crabtree MA - 09/15/2023 11:16 AM EDT SEQUENTIAL SCREENINGS The [facility] offers sequential screenings for women who [...] It will require an appointment with our carpet technician. This is not an ultrasound performed [...] the above symptoms, contact our office at [phone] and ask to speak with a nurse. After hours, you can call doctors registry at [phone] OR call [facility] at [phone] and ask to have the doctor nursing department chairperson paged. If you consider this an emergency, dial 9--1 or go to your nearest emergency department. NEED HELP? Are you dealing with a violent or abusive relationship? Are you a victim of rape or sexual assult? Call [facility] ([place]) 24 hour Crisis Hotline: 138.164.4615 or 748-069-8449. MANUAL Your Guide to a Healthy manual is now on-line. Visit [email or web address] ancyGuide to download your free copy documented in this encounter [facility] 08-26-2023 Telephone encounter Note 2nd risk assessment form submitted 08/26/23 Kt Abdalla RN [facility] 08-26-2023 Miscellaneous Notes 2nd risk assessment form submitted 08/26/23 Kt Abdalla RN documented in this encounter [facility] 08-26-2023 Telephone encounter Note 2nd risk assessment form submitted 08/26/23 Kt Abdalla RN [facility] 08-26-2023 Miscellaneous Notes 2nd risk assessment form submitted 08/26/23 Kt Abdalla RN documented in this encounter [facility] 08-16-2023 Note Indication Detailed anatomic survey. Evaluation [...] Placenta: Placental site: anterior, low lying. Placental xwsq-yz-rdxjatmf os distance 4 mm Umbilical cord: Cord [...] 10 oz EFW by: Hadlock (HC-AC-FL) Extended Office Services Associate 5.2 mm CM 3.4 mm 13% Nicolaides [...] 10 oz EFW by: Hadlock (HC-AC-FL) Extended Office Services Associate 5.8 mm CM 3.1 mm 7% Nicolaides [...] normal LVOT view: normal 3-vessel view: normal 6-ffvpih-mvsgpxq view: normal Heart / Thorax Situs: situs [...] Level: 4 - Moderate Harrison Cam MD [facility] 08-16-2023 Miscellaneous Notes KJ - VB No. [...] Harrison Cam MD documented in this encounter [facility] 08-16-2023 Instructions Taryn Crabtree MA - 08/16/2023 1:55 PM EDT SEQUENTIAL SCREENINGS The [facility] offers sequential screenings for women who [...] It will require an appointment with our carpet technician. This is not an ultrasound performed [...] the above symptoms, contact our office at [phone] and ask to speak with a nurse. After hours, you can call doctors registry at [phone] OR call [facility] at [phone] and ask to have the doctor nursing department chairperson paged. If you consider this an emergency, dial 9-1-9 or go to your nearest emergency department. NEED HELP? Are you dealing with a violent or abusive relationship? Are you a victim of rape or sexual assult? Call [facility] ([place]) 24 hour Crisis Hotline: 181.179.8670 or 173-139-7232. MANUAL Your Guide to a Healthy manual is now on-line. Visit [email or web address] ancyGuide to download your free copy documented in this encounter [facility] 07-29-2023 Progress note Formatting of t his [...] US scheduled Di/di twins Harrison Cam MD [facility] 07-29-2023 Miscellaneous Notes KJ - VB No. LOF No. CTXS No. Movement: absent. Other c/o: No. Medication list reviewed. Physical Exam See Flow Sheet Gen: no accute distress, well appearing Abd: soft, nontender TAUS: active fetus with fca x2 A/P 16w0d Estimated Date of Delivery: 01/13/24 Anatomy US scheduled Di/di twins Harrison Cam MD documented in this encounter [facility] 07-29-2023 Veronica Hutchins LPN - 07/29/2023 8:43 AM EDT SEQUENTIAL SCREENINGS [facility] offers sequential screenings for women who [...] It will require an appointment with our carpet technician. This is not an ultrasound performed [...] the above symptoms, contact our office at [phone] and ask to speak with a nurse. After hours, you can call doctors registry at [phone] OR call [facility] at [phone] and ask to have the doctor nursing department chairperson paged. If you consider this an emergency, dial 9-1-1 or go to your nearest emergency department. NEED HELP? Are you dealing with a violent or abusive relationship? Are you a victim of rape or sexual assult? Call [facility] ([place]) 24 hour Crisis Hotline: 881.380.6768 or 505-985-7774. MANUAL Your Guide to a Healthy manual is now on-line. Visit [email or web address]/HealthyPregn ancyGuide to download your free copy documented in this encounter [facility] 07-05-2023 Progress note Formatting of t his [...] and visits pending results Harrison Cam MD [facility] 07-05-2023 Miscellaneous Notes KJ - VB No. [...] Harrison Cam MD documented in this encounter [facility] 07-05-2023 Instructions Taryn Crabtree MA - 07/05/2023 2:04 PM EDT SEQUENTIAL SCREENINGS The [facility] offers sequential screenings for women who [...] It will require an appointment with our carpet technician. This is not an ultrasound performed [...] the above symptoms, contact our office at [phone] and ask to speak with a nurse. After hours, you can call doctors registry at [phone] OR call [facility] at [phone] and ask to have the doctor nursing department chairperson paged. If you consider this an emergency, dial 4-5-7 or go to your nearest emergency department. NEED HELP? Are you dealing with a violent or abusive relationship? Are you a victim of rape or sexual assult? Call [facility] ([facility] 24 hour Crisis Hotline: 462.386.6689 or 507-806-1588. MANUAL Your Guide to a Healthy manual is now on-line. Visit [email or web address].org/HealthyPregn ancyGuide to download your free copy documented in this encounter [facility] 06-28-2023 Hospital Discharg e instructions Patient Education [...] for heart disease or after a stroke) Dhnz-bew-wdsytmo medicines for diarrhea, nausea, and vomiting are generally OK unless you have bleeding, fever, or severe abdominal pain. General care If symptoms are severe, rest at home for the next 24 hours, or until you are feeling better. Washing your hands with soap and water, or using alcohol-based hand spinner tender is the best way to stop the [...] after. Wash your hands or use alcohol-based spinner tender after using cutting boards, countertops, and knives that have been in contact with raw food. Dry your hands with a single use towel. Keep uncooked meats away from cooked and fwkdq-fb-rzc foods. Follow-up care Follow up with your [...] every 6 hours), or very dark urine [phone] [employer]. [address] [place] [address]. All rights reserved. This information is not intended as a substitute for professional medical care. Always follow your healthcare professional's instructions. Follow Up Care 06/27/2023 18:33:12 With:Follow up with primary care provider Address:Unknown When:2-4 days [facility] 06-27-2023 Note Discharge Instructions Thank you for allowing [facility] to assist you with your healthcare needs. [...] for heart disease or after a stroke) Bopa-ali-sbdgogc medicines for diarrhea, nausea, and vomiting are generally OK unless you have bleeding, fever, or severe abdominal pain. General care If symptoms are severe, rest at home for the next 24 hours, or until you are feeling better. Washing your hands with soap and water, or using alcohol-based hand spinner tender is the best way to stop the [...] after. Wash your hands or use alcohol-based spinner tender after using cutting boards, countertops, and knives that have been in contact with raw food. Dry your hands with a single use towel. Keep uncooked meats away from cooked and wmufy-ho-rua foods. Follow-up care Follow up with your [...] 6 hours), or very dark urine [employer]. [address] [place] [address]. All rights reserved. This information is not intended as a substitute for professional medical care. Always follow your healthcare professional's instructions. Additional Information VACCINATE! IT SAVES LIVES! Members of the community who have not yet received the COVID-19 vaccine and would like to receive it can visit one of [facility] vaccine clinics. There are many vaccine clinic locations within the [facility]. For locations and available times, please visit [email or web address]. gov/. It is important to note that some COVID mobile vaccine clinics are held outdoors and may be canceled in rainy or stormy conditions. To learn more about pediatric vaccinations (ages 5-11), we invite you to visit the [facility] webpage. https://www.[facility].org/p ages/1530-Pnqpk-Iidgnyiaasg-Freq skbioz-Lztbv-Ixoqiphid.html To learn more about the COVID-19 vaccine, we invite you to visit the CDC website for a list of frequently asked questions. https://www.cdc.gov/coronavirus/ 2019-ncov/vaccines/faq.html [facility] Patient Portal Access Instructions: Stay connected with your healthcare team and access your personal medical information anytime with the [facility] Patient Portal. If you would like a full copy of your medical records please contact the [facility] Medical Records Department Tuesday through Tuesday between 8a.m. and 4:30p.m. Please follow the directions below to access the portal: 1.Access the email account you provided upon registration to the [facility].2.Look for an invitation email from [facility].3.Open the email and access the invitation link: Accept Invitation to [facility]4.Fill in the required quiroz to create your account. Sign into www.[employer] with your username and password that you [...] you will allow to register on the [facility] Patient Portal for access to your information. You can also access the [facility] Patient Portal on the [place] joshua. Simply click on Health Records under [...] Call your local pharmacy or go to [email or web address])/[email or web address] to find one close to you.3.Make use of household items: Use cat litter or old coffee grounds to dispose medications if other options are not available. Mix your drugs with these household products, seal them in an airtight container and throw it into the garbage. Call [facility]: [phone] to be sure your drugs can be [...] aware that I should contact my doctor. Patient/Kaiawhina Kura Kaupapa Maori Signature: Date/Time: Relationship to Patient: Witness Name/Signature: Date/Time: [facility] 06-27-2023 Telephone encounter Note noted [facility] Work Phone: 06-27-2023 Miscellaneous Notes noted 11w3d Calling with c/o vomiting and diarrhea. No fever or body aches. 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 No fever or body aches. 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 FYI. Laisha Marsh RN [facility] 06-13-2023 Instructions Nate Aviles APRN.CNP - 06/13/2023 [...] follow-up as recommended. documented in this encounter [facility] 06-13-2023 History of Presen t illness Narrative [facility] [address] [address] Dept: [phone] Dept Subjective Cheli Osman is a 28 [...] hurt to swallow. Has not utilize any nzqk-llv-hkfoubv medications to help with symptoms. Denies any [...] to visit. ACTIVE PROBLEM LIST History of Cznb-Sudvv-Lewaemr Disease History of Gestational Diabetes Mellitus Forceps [...] tenderness or frontal sinus tenderness. Mouth/Throat: Lips: [place]. Mouth: Mucous membranes are moist. No oral [...] - AMOXICILLIN 875 MG TABLET Nate Aviles APRN.MASTER ESTHETICIAN Patient was informed that examination is consistent with serious otitis media bilaterally. Patient started on antibiotics. Patient was informed to continue to be mindful of nausea and vomiting. If it seems like the symptoms or not improving or worsening at any time she must follow-up with COMMUNICATIONS SUPERVISOR or ER for further evaluation. States understanding agrees above plan of care. Patient given educational materials - see patient instructions. Discussed use, benefit, and side effects of prescribed medications. All patient questions answered. Pt voiced understanding and agrees with treatment plan. Patient advised if symptoms worsen or persist, they are to follow up with PCP or ED. Patient agreeable with treatment plan. lEiud was used to dictate this note. Nate Aviles APRN-COUNTERINTELLIGENCE ANALYST 06/13/2023 4:18 PM documented in this encounter [facility] 06-13-2023 Note HNO ID: [id number] Author: NATE AVILES APRN.CNP Service: ? Author Type: Nurse Practitioner Type: Progress Notes Filed: 06/13/2023 16:40 Note Text: [facility] [place] [address] [facility] [address] Dept: [phone] Dept Subjective Cheli Osman is a 28 [...] hurt to swallow. Has not utilize any ncjd-god-ksszmct medications to help with symptoms. Denies any [...] to visit. ACTIVE PROBLEM LIST History of Wvzk-Tpzvq-Iysruhd Disease History of Gestational Diabetes Mellitus Forceps [...] tenderness or frontal sinus tenderness. Mouth/Throat: Lips: [place]. Mouth: Mucous membranes are moist. No oral [...] place, and time. (more content not included)... [facility] 06-07-2023 Telephone encounter Note 1st risk assessment form submitted 06/07/23 Kt Abdalla RN [facility] 06-07-2023 Miscellaneous Notes 1st risk assessment form submitted 06/07/23 Kt Abdalla RN documented in this encounter [facility] 06-06-2023 Instructions Osmar Read MA - 06/06/2023 8:43 AM EDT Please select the following link to access the [facility] Your Guide to a Healthy . [email or web address] e documented in this encounter [facility] 06-06-2023 Note HNO ID: [id number] Author: HEATHER HANSON MA Service: ? Author Type: Market Risk Specialist Type: Progress Notes Filed: 06/06/2023 10:18 Note Text: OB point of care ultrasound was performed. See imaging tab for details. Heather Hanson MA [facility] 06-06-2023 History of Presen t illness Narrative [...] experience? No Are you currently employed? Yes [employer] Depression/Anxiety Screening: denies symptoms of depression. OB [...] ICD9: 623.8, ICD10: N93.9 7. History of Wbng-Timot-Ltafbxm disease - ICD9: V13.59, ICD10: Z87.39 8. [...] Your guide to a health and the Piping Supervisor. Discussed aneuploidy screening, nuchal translucency/first trimester early [...] hemoglobin electrophoresis. Patient: Declines Reviewed midwifery and bridal gown fitter services that are available. Reviewed [employer] program. Patient desires referral. 2) Patient offered option of Virtual Visits. Patient prefers in person visits. Follow up in 4 weeks for NT US and IRENE or sooner prgenaro Pineda APRN.CNM documented in this encounter [facility] 06-02-2023 Telephone encounter Note Noted Harrison Cam MD [facility] Work Phone: 06-02-2023 Miscellaneous Notes Noted Harrison [...] if further advice. documented in this encounter [facility] 06-02-2023 Note HNO ID: [id number] Author: MELONY PINEDA APRN.CNM Service: ? Author Type: Oleo Hasher And Renderer Type: Progress Notes Filed: 06/06/2023 10:18 Note [...] experience? No Are you currently employed? Yes [employer] Depression/Anxiety Screening: denies symptoms of depression. OB [...] in Ears, Nose (more content not included)... [facility] 06-02-2023 Telephone encounter Note Patient had telephone [...] needed problems. Call only if further advice. [facility] 04-03-2023 Note HNO ID: [id number] Author: ARELIS TAPIA PA-C Service: ? Author Type: Physician Wire Straightening Machine Operator Type: Progress Notes Filed: 04/03/2023 14:36 Note Text: This note was created using Leapforcer[employer]. Subjective Cheli Osman is a 28 year [...] above plan of care. Arelis Tapia PA-C [facility] 04-03-2023 History of Presen t illness Narrative This note was created using Leapforceriter. Subjective Cheli Osman is a 28 year [...] Arelis Tapia PA-C documented in this encounter [facility] 04-03-2023 Instructions Arelis Tapia PA-C - 04/03/2023 2:33 PM EST Rest, hydration, fsuv-eue-gfroiuf immune support documented in this encounter [facility] 03-29-2023 Note HNO ID: [id number] Author: HORACE TORRES PA-C Service: ? Author Type: Physician Wire Straightening Machine Operator Type: Progress Notes Filed: 03/29/2023 09:51 Note [...] diabetes mellitus (GDM) in third trimester 03/16/2021 Jted-Xnfpk-Cqezibt disease Current Outpatient Medications Medication Sig Dispense Refill multivitamin (CLASSIC ) 28 mg iron- 800 mcg tab(s) Take 1 tablet by mouth once daily. predniSONE (DELTASONE) 10 mg tablet Take 1 tablet by mouth once daily. TAKE 40 MG (4tabs) FOR TWO DAYS, THEN 20 MG (2tabs) FOR TWO DAYS, THEN 10 MG (1tab) FOR TWO DAYS 14 tablet 0 Agtngsacjanmhme-Ygpvtfpfl-WT (BROMFED DM) 2-30-10 mg/5 mL syrup Take [...] - PREDNISONE 10 MG TABLET DUNG VaughnC [facility] 03-29-2023 History of Presen t illness Narrative [...] diabetes mellitus (GDM) in third trimester 03/16/2021 Nosx-Evbnd-Lfrodep disease Current Outpatient Medications Medication Sig Dispense Refill multivitamin (CLASSIC ) 28 mg iron- 800 mcg tab(s) Take 1 tablet by mouth once daily. predniSONE (DELTASONE) 10 mg tablet Take 1 tablet by mouth once daily. TAKE 40 MG (4tabs) FOR TWO DAYS, THEN 20 MG (2tabs) FOR TWO DAYS, THEN 10 MG (1tab) FOR TWO DAYS 14 tablet 0 Votkdoiokuipwqu-Hoewqypjn-MH (BROMFED DM) 2-30-10 mg/5 mL syrup Take [...] Horace Torres PA-C documented in this encounter [facility] 03-29-2023 Instructions Horace Torres PA-C - 03/29/2023 [...] ALL RIGHTS RESERVED documented in this encounter [facility] 03-19-2023 Note HNO ID: [id number] Author: KINGA RAMSAY MD Service: ? Author [...] started 2 days ago and patient tried kzsn-qoz-wqpvlyr medication without relief and due to concern patient here for further evaluation and treatment. PAST MEDICAL HISTORY Diagnosis Date Antepartum anemia complicating in first trimester 11/21/2020 Asthma childhood -no attacks since age 9 Diet controlled gestational diabetes mellitus (GDM) in third trimester 03/16/2021 Lyde-Jydzj-Czodcau disease ACTIVE PROBLEM LIST History of Jmqd-Psbqm-Chghhmn Disease Vaginal Bleeding Current Outpatient Medications Medication [...] MG/5 ML ORAL SYRUP Son Bubba RamsayMD [facility] 03-19-2023 History of Presen t illness Narrative [...] started 2 days ago and patient tried dhfz-dsa-qujgjih medication without relief and due to concern patient here for further evaluation and treatment. PAST MEDICAL HISTORY Diagnosis Date Antepartum anemia complicating in first trimester 11/21/2020 Asthma childhood -no attacks since age 9 Diet controlled gestational diabetes mellitus (GDM) in third trimester 03/16/2021 Rhqg-Uoofs-Iuhwluf disease ACTIVE PROBLEM LIST History of Ckiw-Vupqu-Pfzpguf Disease Vaginal Bleeding Current Outpatient Medications Medication [...] Kinga Ramsay MD documented in this encounter [facility] 03-09-2023 Note HNO ID: [id number] Author: EFRAIN MONTES DE OCA MD Service: [...] restrictions reviewed. Efrain Montes De Oca MD [facility] 03-04-2023 Note HNO ID: [id number] Author: CHELI DILLARD MD Service: ? Author Type: Physician Type: Progress Notes Filed: 03/04/2023 11:16 Note Text: Patient was not on location when she checked in. Rescheduled due to being >15 min late at end of the day. Cheli Dillard MD [facility] 02-24-2023 Note HNO ID: [id number] Author: JUANY WHITNEY DO Service: Obstetrics Author [...] with primary Ob Provider/Group: Dr. Margaret Whitney, [facility] 02-23-2023 Note HNO ID: [id number] Author: ARTURO LUDWIG MD Service: Obstetrics Author [...] diabetes mellitus (GDM) in third trimester 03/16/2021 Fylq-Kymqi-Ifzcaxy disease PAST SURGICAL HISTORY Procedure Laterality Date [...] No history of dysuria, frequency or incontinence GLASS CUTTER: POSITIVE for vaginal bleeding, passage of clots [...] 23, 2023 TIME: 9:08 PM PAGER/CONTACT #: [facility] 02-21-2023 Note HNO ID: [id number] Author: CHELI DILLARD MD Service: ? Author Type: Physician Type: Progress Notes Filed: 02/21/2023 13:08 Note Text: Patient underwent suction dilation and curettage for 16-week loss, embryo measuring 13 weeks size. This was done at [facility] on 02/18/2023 without complications. She was discharged home with routine instructions and follow-up. No genetics were ordered on the products of conception because patient had NIPT done during the . Cheli Dillard MD [facility] 02-11-2023 Note HNO ID: [id number] Author: CHELI DILLARD MD Service: ? Author [...] L1 SAB0 IAB0 Ectopic0 Multiple0 Live Births1 Plumbing Engineer History LMP: 10/29/2022 (Approximate), Age at Menarche: Age at First : Age at Menopause: Plumbing Engineer History Comments: Sexual Activity: Yes; Male Contraception: No contraception data on record PAST MEDICAL HISTORY Diagnosis Date Antepartum anemia complicating in first trimester 11/21/2020 Asthma childhood -no attacks since age 9 Diet controlled gestational diabetes mellitus (GDM) in third trimester 03/16/2021 Qvhz-Uacnc-Dxujufn disease PAST SURGICAL HISTORY Procedure Laterality Date [...] external genitalia normal, normal Bartholin's glands, urethra, [place]'s glands, no vulvar lesions, no cervical lesions, good vaginal support, physiologic discharge present, normal appearing perineal body and perianal region BIMANUAL: no adnexal masses, non-tender, and uterus 12 weeks size, mobile, nontender. Transabdominal ultrasound was performed which revealed an embryo without cardiac activity either visually or via Doppler color-flow. [place]-rump length is consistent with approximately 7.2 cm [...] and products of conception. Cheli Dillard MD [facility] 02-06-2023 Hospital Discharg e instructions Patient Education [...] Boil returns when you are at home [phone] [employer]. [address] [place] [address]. All rights reserved. This information is not intended as a substitute for professional medical care. Always follow your healthcare professional's instructions. Follow Up Care 02/06/2023 11:18:10 With:TOMMY CORTÉS DO Address: [address] [place] [phone] When:2-4 days [facility] 02-06-2023 Emergency department Discharge summary Discharge Instructions Thank you for allowing [facility] to assist you with your healthcare needs. The following is important discharge information regarding your hospital visit. Diagnosis from Today's Visit Boil What to Do Next Instructions from Your Care Team No qualifying data available. Post Acute Orders No qualifying data available. You Need to Schedule the Following Appointments Follow Up with TOMMY CORTÉS DO When Within 2-4 days Where: [address] [place] [phone] Allergies NKA Medications Please ask your primary [...] Boil returns when you are at home [phone] [employer]. [address] [place] [address]. All rights reserved. This information is not intended as a substitute for professional medical care. Always follow your healthcare professional's instructions. Additional Information VACCINATE! IT SAVES LIVES! Members of the community who have not yet received the COVID-19 vaccine and would like to receive it can visit one of [facility] vaccine clinics. There are many vaccine clinic locations within the [facility]. For locations and available times, please visit [email or web address]. gov/. It is important to note that some COVID mobile vaccine clinics are held outdoors and may be canceled in rainy or stormy conditions. To learn more about pediatric vaccinations (ages 5-11), we invite you to visit the [facility] webpage. https://www.[facility].org/p ages/6705-Gvpta-Twidgkrwpmd-Freq uququd-Tanyd-Ipiuipvzm.html To learn more about the COVID-19 vaccine, we invite you to visit the CDC website for a list of frequently asked questions. https://www.cdc.gov/coronavirus/ 2019-ncov/vaccines/faq.html [facility] Access Instructions: Stay connected with your healthcare team and access your personal medical information anytime with the [facility] Patient Portal. If you would like a full copy of your medical records please contact the [facility] Medical Records Department Tuesday through Tuesday between 8a.m. and 4:30p.m. Please follow the directions below to access the portal: 1.Access the email account you provided upon registration to the [facility].2.Look for an invitation email from [facility].3.Open the email and access the invitation link: Accept Invitation to [facility]4.Fill in the required quiroz to create your account. Sign into www.[employer] with your username and password that you [...] you will allow to register on the [facility] Patient Portal for access to your information. You can also access the [facility] Patient Portal on the [employer]. Simply click on Health Records under Health Data and then click on the [employer] logo. HOW TO SAFELY DISPOSE OF PRESCRIPTION [...] Call your local pharmacy or go to http://KeyView.[employer])/8L8Qt6c to find one close to you.3.Make use of household items: Use cat litter or old coffee grounds to dispose medications if other options are not available. Mix your drugs with these household products, seal them in an airtight container and throw it into the garbage. Call [facility]: [phone] to be sure your drugs can be [...] aware that I should contact my doctor. Patient/Ka[place] Maori Signature: Date/Time: Relationship to Patient: Witness Name/Signature: Date/Time: [facility] 2023 Note HNO ID: [id number] Author: Denise Cotton APRN.MASTER ESTHETICIAN Service: ? Author Type: Nurse Practitioner Type: [...] diabetes mellitus (GDM) in third trimester 03/16/2021 Gwmy-Gwqcm-Yrngvow disease ACTIVE PROBLEM LIST Nausea and Vomiting During History of Yjmn-Rfofi-Blyvuuq Disease History of Gestational Diabetes With Uncertain [...] if symptoms change or worsen. Denise Cotton APRN.[facility] 01-19-2023 Note HNO ID: [id number] Author: Harpreet Shankar MD Service: ? Author Type: Physician Type: Progress Notes Filed: 01/19/2023 2:20 PM Note Text: [facility] Primary [address] [address] Date of Evaluation: 01/19/2023 Patient Name: Cheli Osman : 1995 Chief Complaint: Patient presents with: [facility] Care Nursing Intake: Nursing Notes: Grey Hall Ma, MA 01/19/2023 1:17 PM Signed Cheli Osman is a 27 year old female who presents for Establish Care Patient has no concerns, patient is 11weeks and 5 days Grey Hall MA Subjective Ms. Osman is a 27 year old female who presents with the following complaint(s): HPI This patient [facility]. They are new to the office and new to me. She is 11 weeks , being followed by COMMUNICATIONS SUPERVISOR. This is her second . She is [...] ex- around childcare and visitation for her 49-fuicz-ahh. She follows with GLASS CUTTER, she does not smoke may have 1 [...] the above wi (more content not included)... [facility] 01-19-2023 History of Presen t illness Narrative Images from the original note were not included. [facility] Primary [facility] [address] [place] [address] Date of Evaluation: 01/19/2023 Patient Name: Cheli [...] is 11 weeks , being followed by COMMUNICATIONS SUPERVISOR. This is her second . She is [...] 312-hour shifts at a [employer] as a [employer]. She is in a relationship with the father of her current child, trying to work with her ex- around childcare and visitation for her 13-kqvgm-aop. She follows with GLASS CUTTER, she does not smoke may have 1 [...] does not resolve. documented in this encounter [facility] 01-19-2023 Nurse Note Cheli Osman is a 27 year old female who presents for Establish Care Patient has no concerns, patient is 11weeks and 5 days Grey Hall MA documented in this encounter [facility] 01-11-2023 Miscellaneous Notes 1st risk assessment form submitted 01/11/23 Maikel Lea RN documented in this encounter [facility] 01-07-2023 History of Past i llness Narrative [...] of this encounter (statuses as of 03/19/2023) [facility]12-01-2023 History of Past illness Narrative* Problem Noted [...] of this encounter (statuses as of 03/29/2023) [facility]12-01-2023 History of Past illness Narrative* Problem Noted [...] of this encounter (statuses as of 04/03/2023) [facility]12-01-2023 Instructions* Patient Instructions* Brenna Altamirano APRN.MASTER ESTHETICIAN - 01/07/2023 8:37 AM EST Please select the following link to access the [facility] Your Guide to a Healthy . [email or web address] MORNING SICKNESS IN by Adrianna Marshall M.D. for 3D FUTURE VISION II As you may already know, morning sickness can often be more appropriately called evening sickness or hruog-doknvt-al-the-day sickness. While there are the daryl few, [...] medication, Doxylamine, is currently marketed as an ktrb-crw-udjawmm sleeping pill. Ask your practitioner if creating a vitamin B6/Doxylaminecombination with duab-xyg-lqwfxph medications would be safe for you. Prescription [...] as Phenergan, Compazine, Reglan documented in this encounterCleveland [facility]12-01-2023 NoteHNO ID: [id number] Author: Brenna Altamirano APRN.MASTER ESTHETICIAN Service: ? 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 Discussed aneuploidy and carrier screening. Regarding aneuploidy [...] May consider in future. Reviewed midwifery and bridal gown fitter services that are available. ACTIVE PROBLEM LIST [...] notify if prescription is needed. History of Vfbp-Qposs-Dcmnvhn Disease - 11/13/2020 Comment: 11/13/2020atient states she has Hhlz-Gayiy-Xayljyr disease. TKRN Follow up in 4 weeks or sooner prn. Brenna Altamirano APRN.MASTER ESTHETICIAN documented in this encounterCleveland [facility]11-25-2023 NoteHNO ID: [id number] Author: Arleen Brown APRN.MASTER ESTHETICIAN Service: ? Author Type: Nurse Practitioner Type: [...] diabetes mellitus (GDM) in third trimester 03/16/2021 Flpo-Jmksl-Ueajvfo disease ACTIVE PROBLEM LIST History of Noqa-Glyju-Jcakfnd Disease History of Gestational Diabetes Current Outpatient [...] , symptom management is limited to Zyrtec, cchh-qyt-dwulwal Monistat, rest, hydrate. Patient instructed to follow-up with her COMMUNICATIONS SUPERVISOR related to vaginal discharge BARBARA. Follow-up with PCP for any additional concerns. Patient in agreement to the above plan and discharged in stable condition. Arleen Brown APRN.MASTER ESTHETICIAN (more content not included)...[facility] 11-26-2022 History of Present illness Narrative* Linh Zimmerman MD - 11/26/2022 2:25 PM EDT Mold Capper Helper offered: Patient declines. Bibiana is a 27 [...] L1 SAB0 IAB0 Ectopic0 Multiple0 Live Births1 Plumbing Engineer History LMP: 10/29/2022 (Approximate), Having periods Age at Menarche: Age at First : Age at Menopause: Plumbing Engineer History Comments: Sexual Activity: Yes; Male Contraception: No contraception data on record PAST MEDICAL HISTORY Diagnosis Date Antepartum anemia complicating in first trimester 11/21/2020 Asthma childhood -no attacks since age 9 Diet controlled gestational diabetes mellitus (GDM) in third trimester 03/16/2021 Lqdc-Xoxgx-Ljrvwvw disease PAST SURGICAL HISTORY Procedure Laterality Date [...] external genitalia normal, normal Bartholin's glands, urethra, [place]'s glands, no vulvar lesions, no cervical lesions, [...] needed Linh Siddiqui MD documented in this encounterC[facility]09-29-2023 Note. MICRO - Microbiology PROCEDURE: Urine Culture [...] Locations *1: This test was performed at: [address], [address]- , [facility] ([place])11-02-2022 Hospital Discharge instructions Patient Education 11/02/2022 18:09:11 [...] worse Numbness or weakness in a leg 7395-8046 [employer]. [address] [place] [address]. All rights reserved. This information is not [...] swelling in the outer vaginal area (labia) 6839-0411 [employer]. [address] [place] [address], [place] [address]. All rights reserved. This information is not intended as a substitute for professional medical care. Always follow yourhealthcare professional's instructions. Follow Up Care 11/02/2022 15:54:19 With:YI BASS Address: [address] [place] [address] [place] [phone] Business (1) When:2-4 days Comments:Return to ED if symptoms worsen With:Call AMB New Pt. Refferral [phone] Address:Unknown When:2-4 days [facility] 09-26-2023 Note Discharge Instructions Thank you [...] to ED if symptoms worsen Where: [address] [facility] [place] [address]- [phone] Business (1) Follow Up with Call ROSA Valiente Pt. Refferral [phone] When Within 2-4 days Allergies NKA Medications [...] worse Numbness or weakness in a leg 2027-2150 [employer]. [address] [place], [place] [id number]. All rights reserved. This information is not [...] swelling in the outer vaginal area (labia) 8505-0558 [employer]. [address] [place] [address]. All rights reserved. This information is not intended as a substitute for professional medical care. Always follow yourhealthcare professional's instructions. Additional Information VACCINATE! IT SAVES LIVES! Members of the community who have not yet received the COVID-19 vaccine and would like to receive it can visit one of [facility] vaccine clinics. There are many vaccine clinic locations within the [facility]. For locations and available times, please visit [email or web address] It is important to note that some COVID mobile vaccine clinics are held outdoors and may be canceled in rainy or stormy conditions. To learn more about pediatric vaccinations (ages 5-11), we invite you to visit the [facility] webpage. [email or web address]/[email or web address]-[email or web address]-Izrai-Qtp stions.htmlTo learn more about the COVID-19 vaccine, we invite you to visit the CDC website for a list of frequently asked questions. https://www.cdc.gov/coronavirus/2019-ncov/vaccines/faq.html [facility] Patient Portal Access Instructions: Stay connected with your healthcare team and access your personal medical information anytime with the [facility] Patient Portal. If you would like a full copy of your medical records please contact the [facility] Medical Records Department Tuesday through Tuesday between 8a.m. and 4:30p.m. Please follow the directions below to access the portal: 1.Access the email account you provided upon registration to the [facility].2.Look for an invitation email from [facility].3.Open the email and access the invitation link: Accept Invitation to [facility]4.Fill in the required quiroz to create your account. Sign into www.[employer] with your username and password that you [...] you will allow to register on the [facility] Patient Portal for access to your information. You can also access the [facility] Patient Portal on the [employer]. Simply click on Health Records under [employer] and then click on the Epi[employer] logo. HOW TO SAFELY DISPOSE OF PRESCRIPTION [...] Call your local pharmacy or go to http://bit.[employer])/5X7Md6d to find one close to you.3.Make use of household items: Use cat litter or old coffee grounds to dispose medications if other options arenot available. Mix your drugs with these household products, seal them in an airtight container andthrow it into the garbage. Call [facility]: [phone] to be sure your drugs can be [...] aware that I should contact my doctor. Patient/Kaiawhina [place] Maori Signature: Date/Time: Relationship to Patient: Witness Name/Signature: Date/Time: [facility]09-26-2023 Note ORIGINAL EXAMINATION: CT OF THE ABDOMEN [...] Date: 11/02/2022 5:57:37 PM Ordering Provider[facility] + Plan note Diagnostic Tests Pending * Urine Culture 11/02/22 [facility] 08-07-2023 Instructions* Patient Instructions* Augusto Adames MD - 09/13/2022 3:49 PM EDT Gargle, lozenges OTC med as needed Recheck if any change F/u PCP for further ration and care explained details documented in this encounterCleveland [facility] Hospital08-07-2023 History of Present illness Narrative* Augusto Adames [...] diabetes mellitus (GDM) in third trimester 03/16/2021 Ixam-Ifhjs-Pnqdmhq disease ACTIVE PROBLEM LIST History of Oqxi-Bjfig-Vbwxpyp Disease History of Gestational Diabetes Current Outpatient [...] agreed Augusto Adames MD documented in this encounterCleveland Clinic [facility] Hospital06-05-2023 History of Present illness Narrative* Michael Hernandez [...] diabetes mellitus (GDM) in third trimester 03/16/2021 Khju-Oxbae-Zqbjmcw disease ACTIVE PROBLEM LIST History of Rslv-Qbtpz-Blqangy Disease History of Gestational Diabetes Current Outpatient [...] are not fully corrected. documented in this encounterCleveland Clinic [facility] Hospital05-30-2023 Miscellaneous Notes* Telephone Encounter - Letitia Wu [...] work. Letitia Wu LPN documented in this encounterCleveland Clinic Luther[facility] Hospital05-30-2023 Instructions* Patient Instructions* Augusto Adames MD - 07/06/2022 9:18 AM EDT Gargle, lozenges OTC med as needed Recheck if any change F/u PCP explained details documented in this encounterCleveland Clinic [facility] Hospital05-30-2023 History of Present illness Narrative* Augusto Adames [...] diabetes mellitus (GDM) in third trimester 03/16/2021 Qhcm-Vpfpc-Lnqqftq disease ACTIVE PROBLEM LIST History of Oivi-Drlqg-Eilrymp Disease History of Gestational Diabetes Current Outpatient [...] details Augusto Adames MD documented in this encounterCleveland Clinic [facility] Hospital11-20-2022 History of Present illness Narrative* Demetrius Bravo [...] diabetes mellitus (GDM) in third trimester 03/16/2021 Jjqy-Ysxhp-Aiftxyr disease ACTIVE PROBLEM LIST History of Nsji-Cgmsz-Nmsddbn Disease History of Gestational Diabetes Current Outpatient [...] this today. Advised on plenty fluids, rest, uysv-jmm-vbhmrut pain relievers as well as fever reducers. I did prescribe something help her with the cough. Advised to follow-up with her primary care for continuation of symptoms or no better within 7 to 10 days. She voiced understanding was agreeable with this plan. Demetrius Bravo documented in this encounterCleveland Clinic [facility] Hospital10-24-2022 History of Present illness Narrative* Deana Navarro, - 11/30/2021 9:18 PM EDT Cheli Jordan is a 26 year old FEMALE who presents with Sore Throat (Headache, cough, loss of voice x 2 days) HPI PAST MEDICAL HISTORY Diagnosis Date Antepartum anemia complicating in first trimester 11/21/2020 Asthma childhood -no attacks since age 9 Diet controlled gestational diabetes mellitus (GDM) in third trimester 03/16/2021 Syxc-Sbjme-Yuchmly disease ACTIVE PROBLEM LIST History of Leif-Pwcsn-Uytnvoh Disease History of Gestational Diabetes Current Outpatient [...] MG CAPSULE Deana Navarro documented in this encounterCleveland Clinic Luther[facility] Hospital06-03-2022 Instructions* Patient Instructions* Marcia Beckett APRN.[facility] - 07/10/2021 11:32 AM EDT Oral Contraceptives: [...] less iron deficiency anemia in pill users. long term care pharmacist use is associated with a decreased incidence [...] and mild fluid retention. There is no mcc weight gain with the use of the [...] for necessary health information. documented in this encounterCleveland Clinic Luther[facility] Hospital06-03-2022 History of Present illness Narrative* Marcia Beckett APRN.CNM - 07/10/2021 10:46 AM EDT VISIT Cheli Jordan is a 26 year old year old here for visit. Delivery Summary: Delivery information: Delivery date 05/28/2021 Delivery type VAVD Delivering clinician [place]: Name Candi Gender F ROS/ Recovery: Feeding: Breast feeding problems: Seeing education consultant Menses since delivery: bloody discharge Menstrual pattern prior to : Regular periods [place] since delivery: Not resumed Depression: denies symptoms [...] diabetes mellitus (GDM) in third trimester 03/16/2021 Bcph-Dxmtl-Mpnyhhn disease PAST SURGICAL HISTORY Procedure Laterality Date [...] external genitalia normal, normal Bartholin's glands, urethra, [place]'s glands, no vulvar lesions, no cervical lesions, [...] PRN Marcia Beckett APRN.CNM documented in this encounterCleveland Clinic Luther[facility] Hospital06-03-2022 Miscellaneous Notes* Telephone Encounter - Summer Banegas [...] Patient states she is okay to see TRAIN STATION SERVER because sheis returning back to work on Tuesday. ROSETTA- are you OK with seeing patient later in the day or would you like us to check if TRAIN STATION SERVER are OK to add to their schedule? Summer Banegas RN documented in this encounterCleveland Clinic [facility] Hospital04-12-2022 Miscellaneous Notes* Quick Notes - Cheli Dillard [...] constipation Cheli Dillard M.D. documented in this encounterCleveland Clinic Luther[facility] Hospital04-12-2022 Instructions* Patient Instructions* Heather Hanson Ma - 05/19/2021 11:19 AM EDT SEQUENTIAL SCREENINGS The [facility] offers sequential screenings for women who [...] testing. It will require an appointment withour carpet technician. This is not an ultrasound performed [...] the above symptoms, contact our office at [phone] and ask to speak with anurse. After hours, you can call doctors registry at [phone] OR call [facility] at [phone] ask to have the doctor nursing department chairperson paged. If you consider this an emergency, dial [phone] or go to your nearest emergency department. NEED HELP? Are you dealing with a violent or abusive relationship? Are you a victim of rape or sexual assult? Call [facility] ([place]) 24 hour Crisis Hotline: 340.857.3813 or 090-757-6954. MANUAL Your Guide to a Healthy manual is now on-line. Visit [email or web address]/HealthyPregnancyGuide to download your free copy documented in this encounterCleveland Clinic Luther[facility] Hospital04-08-2022 Miscellaneous Notes* Telephone Encounter - Laisha Marsh RN - 05/15/2021 1:27 PM EDT 38w3d today documented in this encounterCleveland Clinic Lutheran Hospital04-05-2022 History of Present illness Narrative* Taryn Martinez MA - 05/12/2021 11:13 AM EDT POPULATION HEALTH NAVIGATION OUTREACH Action/ 1st attempt: Called and left message to call back to discuss motor vehicles inspector. MC message sent. Pt identified by name and : NO Outreach Outcome/Action Unable to reach patient: Left message MyChart message sent Reason for Outreach [place] Payer: No coverage found. Taryn Barber MA May 12, 2021 11:20 AM documented in this encounterCleveland Clinic Luther[facility] Hospital04-05-2022 Miscellaneous Notes* Quick Notes - Marcia Beckett [...] no complaints. Was seen last visit with [facility] Carpet Technician. Forgot BS log but stated almost all [...] day. To send log on 05/15/21 via [employer] to verify BS have been wnl. Discussed risks of untreated GDM. Patient voiced understanding. 4) Growth US next visit. Marcia Beckett APRN.CNM documented in this encounterCleveland Clinic Luther[facility] Hospital04-05-2022 Instructions* Patient Instructions* Alejandra Copeland MA - [...] the above symptoms, contact our office at [phone] and ask to speak with anurse. After hours, you can call doctors registry at [phone] OR call [facility] at [phone] ask to have the doctor nursing department chairperson paged. If you consider this an emergency, dial [phone] or go to your nearest emergency department. NEED HELP? Are you dealing with a violent or abusive relationship? Are you a victim of rape or sexual assult? Call [facility] ([place]) 24 hour Crisis Hotline: 600.287.8489 or 378-195-0162. MANUAL Your Guide to a Healthy manual is now on-line. Visit [email or web address]/HealthyPregnancyGuide to download your free copy documented in this encounterCleveland Clinic Luther[facility] Hospital03-28-2022 Miscellaneous Notes* Quick Notes - Samy Delaney MD - 05/04/2021 2:17 PM EDT BPP 09/14, cory 12 GBS done Reminded pt to bring her BS next appt Plans to del at [facility] EFW due again at 38 wks Samy Delaney MD, MD documented in this encounterCleveland Clinic Lutheran Hospital03-28-2022 Nurse Note* Lien Yee LPN - 05/04/2021 2:13 PM EDT Movement? Active baby Vaginal Bleeding: NO Vaginal fluid leakage of fluid: NO Contractions: no contractions Edema: Trace Lien Yee LPN documented in this encounterCleveland Clinic Luther[facility] Hospital02-07-2022 History of Past illness Narrative* Problem [...] of this encounter (statuses as of 07/10/2021) [facility] of Past illness Narrative* Problem [...] of this encounter (statuses as of 07/10/2021) [facility] of Past illness Narrative* Problem [...] of this encounter (statuses as of 12/01/2021) [facility] of Past illness Narrative* Problem [...] of this encounter (statuses as of 12/27/2021) [facility] of Past illness Narrative* Problem [...] of this encounter (statuses as of 07/06/2022) [facility] of Past illness Narrative* Problem [...] of this encounter (statuses as of 07/07/2022) [facility] of Past illness Narrative* Problem [...] of this encounter (statuses as of 07/13/2022) [facility] of Past illness Narrative* Problem [...] of this encounter (statuses as of 09/14/2022) [facility] of Past illness Narrative* Problem [...] of this encounter (statuses as of 11/26/2022) [facility] of Past illness Narrative* Problem [...] of this encounter (statuses as of 01/07/2023) [facility] of Past illness Narrative* Problem [...] of this encounter (statuses as of 01/11/2023) [facility] of Past illness Narrative* Problem [...] of this encounter (statuses as of 01/20/2023) [facility] of Past illness Narrative* Problem Noted Date Resolved Date Abnormal glucose complicating 03/04/1903/16/2021 Overview: March 04, 2021 needs 3 hr. Cheli Dillard MD documented as of this encounter (statuses as of 05/04/2021) [address]26-2022 History of Past illness Narrative* Problem Noted Date Resolved Date Abnormal glucose complicating 03/04/19 22 03/16/2021 Overview: March 04, 2021 needs 3 hr. Cheli Dillard MD documented as of this encounter (statuses as of 05/04/2021) [address]26-2022 History of Past illness Narrative* Problem Noted Date Resolved Date Abnormal glucose complicating 03/04/19 22 03/16/2021 Overview: March 04, 2021 needs 3 hr. Cheli Dillard MD documented as of this encounter (statuses as of 05/12/2021) [address]26-2022 History of Past illness Narrative* Problem Noted Date Resolved Date Abnormal glucose complicating 03/04/19 22 03/16/2021 Overview: March 04, 2021 needs 3 hr. Cheli Dillard MD documented as of this encounter (statuses as of 05/14/2021) [address]26-2022 History of Past illness Narrative* Problem Noted Date Resolved Date Abnormal glucose complicating 03/04/19 22 03/16/2021 Overview: March 04, 2021 needs 3 hr. Cheli Dillard MD documented as of this encounter (statuses as of 05/15/2021) [address]26-2022 History of Past illness Narrative* Problem Noted Date Resolved Date Abnormal glucose complicating 03/04/19 22 03/16/2021 Overview: March 04, 2021 needs 3 hr. Cheli Dillard MD documented as of this encounter (statuses as of 05/19/2021) [address]26-2022 History of Past illness Narrative* Problem Noted Date Resolved Date Abnormal glucose complicating 03/04/19 22 03/16/2021 Overview: March 04, 2021 needs 3 hr. Cheli Dillard MD documented as of this encounter (statuses as of 05/19/2021) [facility]01-26-2022 History of Past illness Narrative* Problem Noted Date Resolved Date Abnormal glucose complicating 03/04/19 22 03/16/2021 Overview: March 04, 2021 needs 3 hr. Cheli Dillard MD documented as of this encounter (statuses as of 06/29/2021) [facility] note* Diagnosis Gestational diabetes mellitus, class A1- Primary Abnormal maternal glucose tolerance, complicating , childbirth, or the puerperium, unspecified as to episode of care 36 weeks gestation of state, incidental [facility] Diagnosis Malposition of fetus, single or unspecified fetus- Primary documented in this encounter [facility] note* Diagnosis 38 weeks gestation of - Primary state, incidental GDM (gestational diabetes mellitus), class A1 Abnormal maternal glucose tolerance, complicating , childbirth, or the puerperium, unspecified as to episode of care documented in this encounter [facility] note* Diagnosis Diet controlled gestational diabetes mellitus (GDM) in third trimester- Primary 39 weeks gestation of state, incidental [facility] Diagnosis 39 weeks gestation of - Primary state, incidental GDM (gestational diabetes mellitus), class A1 Abnormal maternal glucose tolerance, complicating , childbirth, or the puerperium, unspecified as to episode of care Constipation, unspecified constipation type documented in this encounter [facility] note* Diagnosis care and examination- Primary Routine follow-up Encounter for initial prescription of contraceptive pills General counseling for prescription of oral contraceptives History of gestational diabetes mellitus Personal history of gestational diabetes History of gestational diabetes Personal history of gestational diabetes documented in this encounter [facility] note* Diagnosis Laryngitis- Primary Acute laryngitis, without mention of obstruction Sinobronchitis Unspecified sinusitis (chronic) documented in this encounter [facility] note* Diagnosis Viral illness- Primary Unspecified viral infection, in conditions classified elsewhere and of unspecified site documented in this encounter [facility] note* Diagnosis Sore throat- Primary Acute pharyngitis Strep pharyngitis Streptococcal sore throat documented in this encounter [facility] note* Diagnosis Vaginal yeast infection- Primary Candidiasis of vulva and vagina documented in this encounter [facility] note* Diagnosis Sore throat- Primary Acute pharyngitis Viral pharyngitis Acute pharyngitis documented in this encounter [facility] note* Diagnosis Encounter for gynecological examination (general) (routine) without abnormal findings- Primary documented in this encounter [facility] note* Diagnosis with uncertain dates in [...] unspecified obesity type documented in this encounter [facility] note* Diagnosis Encounter to establish care with new doctor- Primary Other reasons for seeking consultation Depression screening Screening for depression History of gestational diabetes Personal history of gestational diabetes Numbness of foot Disturbance of skin sensation documented in this encounter [facility] note* Diagnosis URI with cough and congestion- Primary documented in this encounter [facility] note* Diagnosis Dermatitis- Primary Contact dermatitis and other eczema, due to unspecified cause documented in this encounter [facility] note* Diagnosis Sinobronchitis- Primary Unspecified sinusitis (chronic) documented in this encounter [facility] note* Diagnosis with uncertain dates in [...] specified noninflammatory disorder of vagina History of Rahw-Aryge-Vlpsniw disease Personal history of other musculoskeletal disorders [...] weeks): [] Consent [] Contraception - [] [employer] Third trimester (36-40 weeks): [] GBS [] [...] Melony Pineda APRN.CNM documented in this encounter [facility]* Diagnosis Non-recurrent acute serous otitis media of both ears- Primary 9 weeks gestation of state, incidental Pharyngitis, unspecified etiology documented in this encounter [facility] note* Diagnosis 12 weeks gestation of - Primary state, incidental Obesity affecting in first trimester, unspecified obesity type Encounter for supervision of high risk in first trimester, antepartum Dichorionic diamniotic twin in first trimester Twin , antepartum documented in this encounter [facility] note* Diagnosis Dichorionic diamniotic twin in first trimester- Primary Twin , antepartum 13 weeks gestation of state, incidental Obesity affecting in first trimester, unspecified obesity type Encounter for nuchal translucency testing Other specified screening documented in this encounter [facility]* Diagnosis 16 weeks gestation of - Primary state, incidental documented in this encounter [facility]* Diagnosis 18 weeks gestation of - Primary state, incidental Dichorionic diamniotic twin in first trimester Twin , antepartum Obesity affecting in first trimester, unspecified obesity type Encounter for supervision of high risk in first trimester, antepartum Placenta previa antepartum Placenta previa without hemorrhage, antepartum documented in this encounter [facility]* Diagnosis Encounter for anatomic survey- Primary Dichorionic diamniotic twin in first trimester Twin , antepartum Obesity affecting in first trimester, unspecified obesity type 18 weeks gestation of state, incidental Low lying placenta without hemorrhage, antepartum Placenta previa without hemorrhage, antepartum documented in this encounter [facility]* Diagnosis Dichorionic diamniotic twin in first trimester- Primary Twin , antepartum 22 weeks gestation of state, incidental documented in this encounter [facility] note* Diagnosis 22 weeks gestation of - Primary state, incidental Dichorionic diamniotic twin in first trimester Twin , antepartum Encounter for supervision of high risk in second trimester, antepartum documented in this encounter [facility] note* Diagnosis with uncertain dates in [...] specified noninflammatory disorder of vagina History of Jzcf-Sdtmv-Zxwkodq disease Personal history of other musculoskeletal disorders [...] of state, incidental documented in this encounter [facility] note* Diagnosis with uncertain dates in [...] specified noninflammatory disorder of vagina History of Rhwb-Pqgcf-Phhuuiv disease Personal history of other musculoskeletal disorders [...] episode of care documented in this encounter [facility] note* Diagnosis with uncertain dates in [...] specified noninflammatory disorder of vagina History of Uhvu-Fqhix-Rofgurk disease Personal history of other musculoskeletal disorders 8 weeks gestation of state, incidental Obesity affecting in first trimester, unspecified obesity type Encounter for supervision of high risk in first trimester, antepartum Abnormal glucose complicating - Primary Abnormal maternal glucose tolerance, complicating , childbirth, or the puerperium, unspecified as to episode of care Anemia during in second trimester [facility] Diagnosis with uncertain dates in first [...] specified noninflammatory disorder of vagina History of Eysy-Txxzo-Xfwsqbf disease Personal history of other musculoskeletal disorders [...] Continue pelvic rest documented in this encounter [facility] note* Diagnosis with uncertain dates in [...] specified noninflammatory disorder of vagina History of Wjcl-Ppshg-Dhfzeim disease Personal history of other musculoskeletal disorders [...] third trimester- Primary documented in this encounter [facility] note* Diagnosis with uncertain dates in [...] specified noninflammatory disorder of vagina History of Cjfa-Jqvdb-Txxwqhk disease Personal history of other musculoskeletal disorders [...] control unspecified- Primary [facility] Diagnosis with uncertain dates in first [...] specified noninflammatory disorder of vagina History of Wgju-Cykcy-Wgkjswx disease Personal history of other musculoskeletal disorders [...] third trimester- Primary [facility] Diagnosis with uncertain dates in first [...] specified noninflammatory disorder of vagina History of Dpul-Edsol-Mrqhsgu disease Personal history of other musculoskeletal disorders [...] third trimester- Primary documented in this encounter [facility]* Diagnosis with uncertain dates in first [...] specified noninflammatory disorder of vagina History of Aokp-Gzvur-Szhzgdb disease Personal history of other musculoskeletal disorders [...] third trimester- Primary documented in this encounter [facility]* Diagnosis with uncertain dates in first [...] specified noninflammatory disorder of vagina History of Qwrg-Rhehz-Lzrfqjj disease Personal history of other musculoskeletal disorders [...] Twin , antepartum [facility] Diagnosis with uncertain dates in first [...] specified noninflammatory disorder of vagina History of Rssb-Squfi-Slbgqlp disease Personal history of other musculoskeletal disorders [...] Twin , antepartum documented in this encounter [facility] note* Diagnosis with uncertain dates in [...] specified noninflammatory disorder of vagina History of Meag-Aquxm-Cukmqxn disease Personal history of other musculoskeletal disorders [...] of control unspecified documented in this encounter [facility] note* Diagnosis with uncertain dates in [...] specified noninflammatory disorder of vagina History of Egju-Vjhbb-Vyirfuz disease Personal history of other musculoskeletal disorders [...] second trimester (HCC) documented in this encounter [facility] note* Diagnosis with uncertain dates in [...] specified noninflammatory disorder of vagina History of Ymyl-Sxuvm-Dskmvyc disease Personal history of other musculoskeletal disorders [...] first trimester, antepartum documented in this encounter [facility] note* Diagnosis with uncertain dates in [...] specified noninflammatory disorder of vagina History of Cwyf-Kklmv-Tsgxwsu disease Personal history of other musculoskeletal disorders [...] third trimester- Primary documented in this encounter [facility] note* Diagnosis with uncertain dates in [...] specified noninflammatory disorder of vagina History of Kdqj-Wojdh-Utwbrgm disease Personal history of other musculoskeletal disorders [...] of state, incidental documented in this encounter [facility]* Diagnosis with uncertain dates in first [...] specified noninflammatory disorder of vagina History of Bwgm-Zjtda-Hqymibv disease Personal history of other musculoskeletal disorders [...] third trimester (HCC) [facility] Diagnosis with uncertain dates in first [...] specified noninflammatory disorder of vagina History of Dxva-Cqzzy-Oagvwsf disease Personal history of other musculoskeletal disorders [...] third trimester- Primary documented in this encounter [facility] note* Diagnosis with uncertain dates in [...] specified noninflammatory disorder of vagina History of Crgm-Piszq-Lrnomyp disease Personal history of other musculoskeletal disorders [...] of state, incidental [facility] Diagnosis with uncertain dates in first [...] specified noninflammatory disorder of vagina History of Wfcg-Jqkae-Svhomzh disease Personal history of other musculoskeletal disorders [...] of state, incidental documented in this encounter [facility] course Narrative No data available for this section [facility] Reason for referral (narrative)* Diagnostic Procedure Only (Routine) - Pending Review Specialty Diagnoses / Procedures Referred By Nancy jaeger Referred To Contact [facility] Diagnoses Malposition of fetus, single or unspecified fetus Procedures OBSTETRIC ULTRASOUND WHI US PREG UTERUS AFTER 1ST TRIMEST GESTATION Samy Delaney MD [address] [address] Referral ID Status Reason Start Date Expiration Date Visits Requested Visits Authorized [id number] Pending Review Auto-Generat ed Referral 05/04/2021 05/04/2022 1 1 [facility] for referral (narrative)* Diagnostic Procedure Only (Routine) - Authorized Specialty Diagnoses / Procedures Referred By Nancy jaeger Referred To Contact [facility] Department Diagnoses 38 weeks gestation of GDM (gestational diabetes mellitus), class A1 Procedures OBSTETRIC ULTRASOUND WHI US PREG UTERUS AFTER 1ST TRIMEST GESTATION Marcia Beckett APRN.JAIRO [address] [place] [address] [facility] Referral ID Status Reason Start Date Expiration Date Visits Requested Visits Authorized [id number] Authorized Auto-Generate d Referral Patient Cleared - Qualified 100% FAS 05/12/2021 08/10/2021 99 99 [facility] for referral (narrative)* Outpatient Procedure (Routine) - Pending Review Specialty Diagnoses / Procedures Referred By Contac t Referred To [facility] Diagnoses 39 weeks gestation of GDM (gestational diabetes mellitus), class A1 Procedures NON-STRESS TEST NON-STRESS TEST Cheli Dillard MD [address] [place] [address] [facility] [address] [place] [address] Referral ID Status Reason Start Date Expiration Date Visits Requested Visits Authorized [id number] Pending Review Auto-Generat ed Referral 05/19/2021 05/19/2022 1 1 [facility] for referral (narrative)* Diagnostic Procedure Only (Routine) - Authorized Specialty Diagnoses / Procedures Referred By Contac t Referred To [facility] Diagnoses Dichorionic diamniotic twin in first trimester Procedures NUCHAL TRANSLUCENCY WHI US NUCHAL TRANSLUCENCY 1ST GESTATION Harrison Cam MD [address] [place] [address] [facility] [address] [place] [address] Referral ID Status Reason Start Date Expiration Date Visits Requested Visits Authorized [id number] Authorized Auto-Generat ed Referral 07/05/2023 07/04/2024 1 1 [facility] for referral (narrative)* Diagnostic Procedure Only (Routine) - Authorized Specialty Diagnoses / Procedures Referred By Contac t Referred To [facility] Diagnoses Dichorionic diamniotic twin in first trimester Procedures OBSTETRIC ULTRASOUND WHI US PREG UTERUS AFTER 1ST TRIMEST 1 GESTATION Harrison Cam MD [address] [place] [address] [facility] [place] [address] [place] [address] Referral ID Status Reason Start Date Expiration Date Visits Requested Visits Authorized [id number] Authorized Auto-Generat ed Referral 08/16/2023 08/15/2024 8 1 [facility] Summary Purpose Family History No Family [...] Date Diagnosed Date [facility] - [facility] 01/07/2023 Education - [place] 01/07/2023 Problem Noted Date Diagnosed Date [facility] - [facility] 01/07/2023 Education - [place] 01/07/2023 Problem Noted Date Diagnosed Date [facility] - [facility] 01/07/2023 Education - [place] 01/07/2023 Reason for Referral Specialty Diagnoses / Procedures Referred By Contac t Referred To Contact Nutrition Diagnoses Gestational diabetes mellitus (GDM), antepartum, gestational diabetes method of control unspecified Procedures CONSULT TO NUTRITION THERAPY MEDICAL NUTRITION ASSMT&IVNTJ INDIV EACH 15 [place] Lg Munson MD [address] [place] [address] Referral ID Status Reason Start Date Expiration Date Visits Requested Visits Authorized [id number] Authorized PCP Requested Referral 10/28/2023 10/27/2024 1 4 Specialty Diagnoses / Procedures Referred By Contac t Referred To Contact Diagnoses Gestational diabetes mellitus (GDM), antepartum, gestational diabetes method of control unspecified Procedures CONSULT TO DIABETES EDUCATION DSME MEDICAL NUTRITION ASSMT&IVNTJ INDIV EACH 15 [place] MEDICAL NUTRITION ASSMT&IVNTJ INDIV EACH 15 [place] MEDICAL NUTRITION ASSMT&IVNTJ INDIV EACH 15 [place] MEDICAL NUTRITION ASSMT&IVNTJ INDIV EACH 15 [place] Lg Munson MD [address] [place] [address] Referral ID Status Reason Start Date Expiration Date Visits Requested Visits Authorized [id number] Authorized PCP Requested Referral 10/28/2023 10/27/2024 1 1 Specialty Diagnoses / Procedures Referred By Contac t Referred To Contact Diagnoses with uncertain dates in first trimester History of gestational diabetes mellitus Forceps or vacuum extractor delivery 8 weeks gestation of Encounter for supervision of high risk in first trimester, antepartum Procedures MPOWER CONSULT Melony Pineda APRN.CNM [address] [place] [address] Referral ID Status Reason Start Date Expiration Date Visits Requested Visits Authorized [id number] Ref Not Required PCP Requested Referral 06/06/2023 06/05/2024 1 1 Specialty Diagnoses / Procedures Referred By Contac t Referred To Contact [facility] Diagnoses with uncertain dates in first trimester History of gestational diabetes mellitus Forceps or vacuum extractor delivery Procedures NUCHAL TRANSLUCENCY WHI US NUCHAL TRANSLUCENCY 1ST GESTATION Melony Pineda APRN.CNM [address] [place] [address] [facility] [address] [place] [address] Referral ID Status Reason Start Date Expiration Date Visits Requested Visits Authorized [id number] Pending Review Auto-Generat ed Referral 06/06/2023 06/05/2024 1 1 Specialty Diagnoses / Procedures Referred By Contac t Referred To Contact [facility] Diagnoses with uncertain dates in first trimester Procedures OBSTETRIC ULTRASOUND WHI US PREG UTERUS AFTER 1ST TRIMEST 1/ GESTATION Melony Pineda APRN.CNM [address] [place] [address] [facility] [address] [place] [address] Referral ID Status Reason Start Date Expiration Date Visits Requested Visits Authorized [id number] Pending Review Auto-Generat ed Referral 06/06/2023 06/05/2024 1 1 Additional Source Comments Source Comments (unrecognize d section and content) In the event this informatio n is protected by the Federal Confidentiality of Alcohol and Drug Abuse Patient Records regulations: The Federal rules restrict any use of the information to criminally investigate or prosecute any alcohol or drug abuse patient.[facility] the event this information is protected by the Federal Confidentiality of Alcohol and Drug Abuse Patient Records regulations: The Federal rules restrict any use of the information to criminally investigate or prosecute any alcohol or drug abuse patient.[facility] the event this information is protected by the Federal Confidentiality of Alcohol and Drug Abuse Patient Records regulations: The Federal rules restrict any use of the information to criminally investigate or prosecute any alcohol or drug abuse patient.[facility] the event this information is protected by the Federal Confidentiality of Alcohol and Drug Abuse Patient Records regulations: The Federal rules restrict any use of the information to criminally investigate or prosecute any alcohol or drug abuse patient.[facility] the event this information is protected by the Federal Confidentiality of Alcohol and Drug Abuse Patient Records regulations: The Federal rules restrict any use of the information to criminally investigate or prosecute any alcohol or drug abuse patient.[facility] the event this information is protected by the Federal Confidentiality of Alcohol and Drug Abuse Patient Records regulations: The Federal rules restrict any use of the information to criminally investigate or prosecute any alcohol or drug abuse patient.[facility] the event this information is protected by the Federal Confidentiality of Alcohol and Drug Abuse Patient Records regulations: The Federal rules restrict any use of the information to criminally investigate or prosecute any alcohol or drug abuse patient.[facility] the event this information is protected by the Federal Confidentiality of Alcohol and Drug Abuse Patient Records regulations: The Federal rules restrict any use of the information to criminally investigate or prosecute any alcohol or drug abuse patient.[facility] the event this information is protected by the Federal Confidentiality of Alcohol and Drug Abuse Patient Records regulations: The Federal rules restrict any use of the information to criminally investigate or prosecute any alcohol or drug abuse patient.[facility] the event this information is protected by the Federal Confidentiality of Alcohol and Drug Abuse Patient Records regulations: The Federal rules restrict any use of the information to criminally investigate or prosecute any alcohol or drug abuse patient.[facility] the event this information is protected by the Federal Confidentiality of Alcohol and Drug Abuse Patient Records regulations: The Federal rules restrict any use of the information to criminally investigate or prosecute any alcohol or drug abuse patient.[facility] the event this information is protected by the Federal Confidentiality of Alcohol and Drug Abuse Patient Records regulations: The Federal rules restrict any use of the information to criminally investigate or prosecute any alcohol or drug abuse patient.[facility] the event this information is protected by the Federal Confidentiality of Alcohol and Drug Abuse Patient Records regulations: The Federal rules restrict any use of the information to criminally investigate or prosecute any alcohol or drug abuse patient.[facility] the event this information is protected by the Federal Confidentiality of Alcohol and Drug Abuse Patient Records regulations: The Federal rules restrict any use of the information to criminally investigate or prosecute any alcohol or drug abuse patient.[facility] the event this information is protected by the Federal Confidentiality of Alcohol and Drug Abuse Patient Records regulations: The Federal rules restrict any use of the information to criminally investigate or prosecute any alcohol or drug abuse patient.[facility] the event this information is protected by the Federal Confidentiality of Alcohol and Drug Abuse Patient Records regulations: The Federal rules restrict any use of the information to criminally investigate or prosecute any alcohol or drug abuse patient.[facility] HospitalIn the event this information is protected by the Federal Confidentiality of Alcohol and Drug Abuse Patient Records regulations: The Federal rules restrict any use of the information to criminally investigate or prosecute any alcohol or drug abuse patient.[facility] HospitalIn the event this information is protected by the Federal Confidentiality of Alcohol and Drug Abuse Patient Records regulations: The Federal rules restrict any use of the information to criminally investigate or prosecute any alcohol or drug abuse patient.[facility] HospitalIn the event this information is protected by the Federal Confidentiality of Alcohol and Drug Abuse Patient Records regulations: The Federal rules restrict any use of the information to criminally investigate or prosecute any alcohol or drug abuse patient.[facility] HospitalIn the event this information is protected by the Federal Confidentiality of Alcohol and Drug Abuse Patient Records regulations: The Federal rules restrict any use of the information to criminally investigate or prosecute any alcohol or drug abuse patient.[facility] HospitalIn the event this information is protected by the Federal Confidentiality of Alcohol and Drug Abuse Patient Records regulations: The Federal rules restrict any use of the information to criminally investigate or prosecute any alcohol or drug abuse patient.[facility] HospitalIn the event this information is protected by the Federal Confidentiality of Alcohol and Drug Abuse Patient Records regulations: The Federal rules restrict any use of the information to criminally investigate or prosecute any alcohol or drug abuse patient.[facility] HospitalIn the event this information is protected by the Federal Confidentiality of Alcohol and Drug Abuse Patient Records regulations: The Federal rules restrict any use of the information to criminally investigate or prosecute any alcohol or drug abuse patient.[facility] HospitalIn the event this information is protected by the Federal Confidentiality of Alcohol and Drug Abuse Patient Records regulations: The Federal rules restrict any use of the information to criminally investigate or prosecute any alcohol or drug abuse patient.[facility] HospitalIn the event this information is protected by the Federal Confidentiality of Alcohol and Drug Abuse Patient Records regulations: The Federal rules restrict any use of the information to criminally investigate or prosecute any alcohol or drug abuse patient.[facility] HospitalIn the event this information is protected by the Federal Confidentiality of Alcohol and Drug Abuse Patient Records regulations: The Federal rules restrict any use of the information to criminally investigate or prosecute any alcohol or drug abuse patient.[facility] HospitalIn the event this information is protected by the Federal Confidentiality of Alcohol and Drug Abuse Patient Records regulations: The Federal rules restrict any use of the information to criminally investigate or prosecute any alcohol or drug abuse patient.[facility] HospitalIn the event this information is protected by the Federal Confidentiality of Alcohol and Drug Abuse Patient Records regulations: The Federal rules restrict any use of the information to criminally investigate or prosecute any alcohol or drug abuse patient.[facility] HospitalIn the event this information is protected by the Federal Confidentiality of Alcohol and Drug Abuse Patient Records regulations: The Federal rules restrict any use of the information to criminally investigate or prosecute any alcohol or drug abuse patient.[facility] HospitalIn the event this information is protected by the Federal Confidentiality of Alcohol and Drug Abuse Patient Records regulations: The Federal rules restrict any use of the information to criminally investigate or prosecute any alcohol or drug abuse patient.[facility] HospitalIn the event this information is protected by the Federal Confidentiality of Alcohol and Drug Abuse Patient Records regulations: The Federal rules restrict any use of the information to criminally investigate or prosecute any alcohol or drug abuse patient.[facility] HospitalIn the event this information is protected by the Federal Confidentiality of Alcohol and Drug Abuse Patient Records regulations: The Federal rules restrict any use of the information to criminally investigate or prosecute any alcohol or drug abuse patient.[facility] HospitalIn the event this information is protected by the Federal Confidentiality of Alcohol and Drug Abuse Patient Records regulations: The Federal rules restrict any use of the information to criminally investigate or prosecute any alcohol or drug abuse patient.[facility] HospitalIn the event this information is protected by the Federal Confidentiality of Alcohol and Drug Abuse Patient Records regulations: The Federal rules restrict any use of the information to criminally investigate or prosecute any alcohol or drug abuse patient.[facility] HospitalIn the event this information is protected by the Federal Confidentiality of Alcohol and Drug Abuse Patient Records regulations: The Federal rules restrict any use of the information to criminally investigate or prosecute any alcohol or drug abuse patient.[facility] HospitalIn the event this information is protected by the Federal Confidentiality of Alcohol and Drug Abuse Patient Records regulations: The Federal rules restrict any use of the information to criminally investigate or prosecute any alcohol or drug abuse patient.[facility] HospitalIn the event this information is protected by the Federal Confidentiality of Alcohol and Drug Abuse Patient Records regulations: The Federal rules restrict any use of the information to criminally investigate or prosecute any alcohol or drug abuse patient.[facility] HospitalIn the event this information is protected by the Federal Confidentiality of Alcohol and Drug Abuse Patient Records regulations: The Federal rules restrict any use of the information to criminally investigate or prosecute any alcohol or drug abuse patient.[facility] HospitalIn the event this information is protected by the Federal Confidentiality of Alcohol and Drug Abuse Patient Records regulations: The Federal rules restrict any use of the information to criminally investigate or prosecute any alcohol or drug abuse patient.[facility] HospitalIn the event this information is protected by the Federal Confidentiality of Alcohol and Drug Abuse Patient Records regulations: The Federal rules restrict any use of the information to criminally investigate or prosecute any alcohol or drug abuse patient.[facility] HospitalIn the event this information is protected by the Federal Confidentiality of Alcohol and Drug Abuse Patient Records regulations: The Federal rules restrict any use of the information to criminally investigate or prosecute any alcohol or drug abuse patient.[facility] HospitalIn the event this information is protected by the Federal Confidentiality of Alcohol and Drug Abuse Patient Records regulations: The Federal rules restrict any use of the information to criminally investigate or prosecute any alcohol or drug abuse patient.[facility] HospitalIn the event this information is protected by the Federal Confidentiality of Alcohol and Drug Abuse Patient Records regulations: The Federal rules restrict any use of the information to criminally investigate or prosecute any alcohol or drug abuse patient.[facility] HospitalIn the event this information is protected by the Federal Confidentiality of Alcohol and Drug Abuse Patient Records regulations: The Federal rules restrict any use of the information to criminally investigate or prosecute any alcohol or drug abuse patient.[facility] HospitalIn the event this information is protected by the Federal Confidentiality of Alcohol and Drug Abuse Patient Records regulations: The Federal rules restrict any use of the information to criminally investigate or prosecute any alcohol or drug abuse patient.[facility] HospitalIn the event this information is protected by the Federal Confidentiality of Alcohol and Drug Abuse Patient Records regulations: The Federal rules restrict any use of the information to criminally investigate or prosecute any alcohol or drug abuse patient.[facility] HospitalIn the event this information is protected by the Federal Confidentiality of Alcohol and Drug Abuse Patient Records regulations: The Federal rules restrict any use of the information to criminally investigate or prosecute any alcohol or drug abuse patient.[facility] HospitalIn the event this information is protected by the Federal Confidentiality of Alcohol and Drug Abuse Patient Records regulations: The Federal rules restrict any use of the information to criminally investigate or prosecute any alcohol or drug abuse patient.[facility] HospitalIn the event this information is protected by the Federal Confidentiality of Alcohol and Drug Abuse Patient Records regulations: The Federal rules restrict any use of the information to criminally investigate or prosecute any alcohol or drug abuse patient.[facility] HospitalIn the event this information is protected by the Federal Confidentiality of Alcohol and Drug Abuse Patient Records regulations: The Federal rules restrict any use of the information to criminally investigate or prosecute any alcohol or drug abuse patient.[facility] HospitalIn the event this information is protected by the Federal Confidentiality of Alcohol and Drug Abuse Patient Records regulations: The Federal rules restrict any use of the information to criminally investigate or prosecute any alcohol or drug abuse patient.[facility] HospitalIn the event this information is protected by the Federal Confidentiality of Alcohol and Drug Abuse Patient Records regulations: The Federal rules restrict any use of the information to criminally investigate or prosecute any alcohol or drug abuse patient.[facility] HospitalIn the event this information is protected by the Federal Confidentiality of Alcohol and Drug Abuse Patient Records regulations: The Federal rules restrict any use of the information to criminally investigate or prosecute any alcohol or drug abuse patient.[facility] HospitalIn the event this information is protected by the Federal Confidentiality of Alcohol and Drug Abuse Patient Records regulations: The Federal rules restrict any use of the information to criminally investigate or prosecute any alcohol or drug abuse patient.[facility] HospitalIn the event this information is protected by the Federal Confidentiality of Alcohol and Drug Abuse Patient Records regulations: The Federal rules restrict any use of the information to criminally investigate or prosecute any alcohol or drug abuse patient.[facility] HospitalIn the event this information is protected by the Federal Confidentiality of Alcohol and Drug Abuse Patient Records regulations: The Federal rules restrict any use of the information to criminally investigate or prosecute any alcohol or drug abuse patient.[facility] HospitalIn the event this information is protected by the Federal Confidentiality of Alcohol and Drug Abuse Patient Records regulations: The Federal rules restrict any use of the information to criminally investigate or prosecute any alcohol or drug abuse patient.[facility] HospitalIn the event this information is protected by the Federal Confidentiality of Alcohol and Drug Abuse Patient Records regulations: The Federal rules restrict any use of the information to criminally investigate or prosecute any alcohol or drug abuse patient.[facility] HospitalIn the event this information is protected by the Federal Confidentiality of Alcohol and Drug Abuse Patient Records regulations: The Federal rules restrict any use of the information to criminally investigate or prosecute any alcohol or drug abuse patient.[facility] HospitalIn the event this information is protected by the Federal Confidentiality of Alcohol and Drug Abuse Patient Records regulations: The Federal rules restrict any use of the information to criminally investigate or prosecute any alcohol or drug abuse patient.[facility] HospitalIn the event this information is protected by the Federal Confidentiality of Alcohol and Drug Abuse Patient Records regulations: The Federal rules restrict any use of the information to criminally investigate or prosecute any alcohol or drug abuse patient.[facility] HospitalIn the event this information is protected by the Federal Confidentiality of Alcohol and Drug Abuse Patient Records regulations: The Federal rules restrict any use of the information to criminally investigate or prosecute any alcohol or drug abuse patient.[facility] HospitalIn the event this information is protected by the Federal Confidentiality of Alcohol and Drug Abuse Patient Records regulations: The Federal rules restrict any use of the information to criminally investigate or prosecute any alcohol or drug abuse patient.[facility] HospitalIn the event this information is protected by the Federal Confidentiality of Alcohol and Drug Abuse Patient Records regulations: The Federal rules restrict any use of the information to criminally investigate or prosecute any alcohol or drug abuse patient.[facility] HospitalIn the event this information is protected by the Federal Confidentiality of Alcohol and Drug Abuse Patient Records regulations: The Federal rules restrict any use of the information to criminally investigate or prosecute any alcohol or drug abuse patient.[facility] HospitalIn the event this information is protected by the Federal Confidentiality of Alcohol and Drug Abuse Patient Records regulations: The Federal rules restrict any use of the information to criminally investigate or prosecute any alcohol or drug abuse patient.[facility] HospitalIn the event this information is protected by the Federal Confidentiality of Alcohol and Drug Abuse Patient Records regulations: The Federal rules restrict any use of the information to criminally investigate or prosecute any alcohol or drug abuse patient.[facility] HospitalIn the event this information is protected by the Federal Confidentiality of Alcohol and Drug Abuse Patient Records regulations: The Federal rules restrict any use of the information to criminally investigate or prosecute any alcohol or drug abuse patient.[facility] HospitalIn the event this information is protected by the Federal Confidentiality of Alcohol and Drug Abuse Patient Records regulations: The Federal rules restrict any use of the information to criminally investigate or prosecute any alcohol or drug abuse patient.[facility] HospitalIn the event this information is protected by the Federal Confidentiality of Alcohol and Drug Abuse Patient Records regulations: The Federal rules restrict any use of the information to criminally investigate or prosecute any alcohol or drug abuse patient.[facility] Reason for Visit (unrecogniz ed section and content) Reason Comments Anemia Specialty Diagnoses / Procedures Referred By Contac t Referred To Contact Diagnoses Maternal iron deficiency anemia complicating , third trimester Procedures IRON SUCROSE INJECTION PER 1 MG Harrison Cam MD [address] [place] [address] Rick [facility] [address] [place] [address] Referral ID Status Reason Start Date Expiration Date V isits Requested Visits Authorized [id number] Authorized 12/01/2023 02/07/2024 0 99 Reason Comments US Specialty Diagnoses / Procedures Referred By Contac t Referred To Contact [facility] Diagnoses Dichorionic diamniotic twin in first trimester Procedures NUCHAL TRANSLUCENCY WHI US NUCHAL TRANSLUCENCY 1ST GESTATION Harrison Cam MD [address] [place] [address] [facility] [address] [place] [address] Referral ID Status Reason Start Date Expiration Date V isits Requested Visits Authorized [id number] Closed Auto-Generate d Referral 07/05/2023 07/04/2024 1 1 Reason Comments Care [id number] Specialty Diagnoses / Procedures Referred By Contac t Referred To Contact [facility] Diagnoses 16 weeks gestation of Encounter for supervision of normal first in second trimester Procedures OBSTETRIC ULTRASOUND WHI US-MATERNAL/ COMP. Cheli Villa MD [address] [place] [address] [address] Referral ID Status Reason Start Date Expiration Date Visits Requested Visits Authorized [id number] Authorized Auto-Generate d Referral Patient Cleared - Qualified [id number] 02/10/2021 05/11/2021 99 99 Reason Comments Us Procedure Specialty Diagnoses / Procedures Referred By Contac t Referred To Contact [facility] Diagnoses 16 weeks gestation of Encounter for supervision of normal first in second trimester Procedures OBSTETRIC ULTRASOUND WHI US-MATERNAL/ COMP. 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 Diagnoses OB- PATIENT - 27 WEEKS- Procedures OFFICE VISIT, NEW PT., LEVEL 1 TC OB- PATIENT - 27 WEEKS Cheli Dillard MD [address] [place] [address] [employer] [address] [place] [address] Referral ID Status Reason Start Date Expiration Date Visits Requested Visits Authorized [id number] Pending Review OON/Self Pay Override Patient Cleared - Qualified [id number] 02/25/2021 05/26/2021 99 99 Specialty Diagnoses / Procedures Referred By Contac t Referred To Contact [facility] Department Diagnoses 38 weeks gestation of GDM (gestational diabetes mellitus), class A1 Procedures OBSTETRIC ULTRASOUND WHI US PREG UTERUS AFTER 1ST TRIMEST GESTATION Marcia Beckett APRN.CNM [address] [place] [address] [facility] Dept Referral ID Status Reason Start Date Expiration Date Visits Requested Visits Authorized [id number] Authorized Auto-Generate d Referral Patient Cleared - Qualified 100% FAS 05/12/2021 08/10/2021 99 99 Reason Onset Date Comments Care 05/19/2021 Specialty Diagnoses / Procedures Referred By Contac t Referred To Contact ENDOCRINOLOGY Diagnoses Abnormal maternal glucose tolerance, antepartum Procedures CONSULT TO DIABETES EDUCATION OFFICE/OUTPATIENT [facility] 60-74 MINUTES Cheli Dillard MD [address] [place] [address] [facility] [address] [address] Referral ID Status Reason Start Date Expiration Date Visits Requested Visits Authorized [id number] Authorized Financial Clearance Required - Self Pay [...] Referred By Contac t Referred To Contact [facility] Diagnoses with uncertain dates in first trimester Procedures OBSTETRIC ULTRASOUND WHI US PREG UTERUS AFTER 1ST TRIMEST GESTATION Melony Pineda APRN.CNM [address] [place] [address] [address] Referral ID Status Reason Start Date Expiration Date V isits Requested Visits Authorized [id number] Closed Auto-Generate d Referral 06/06/2023 06/05/2024 1 1 Specialty Diagnoses / Procedures Referred By Contac t Referred To Contact [facility] Diagnoses Dichorionic diamniotic twin in first trimester Procedures OBSTETRIC ULTRASOUND WHI US PREG UTERUS AFTER 1ST TRIMEST GESTATION Harrison Cam MD [address] [place] [address] [address] Referral ID Status Reason Start Date Expiration Date V isits Requested Visits Authorized [id number] Closed Auto-Generate d Referral 08/16/2023 08/15/2024 8 [...] MG Lg Munson MD [address] [place] [address] Rick [facility] [address] [place] [address] Referral ID Status Reason Start Date Expiration Date V isits Requested Visits Authorized [id number] Authorized 10/26/2023 02/07/2024 1 99 Reason Comments Benefits Investigation Reason Onset Date Comments Immunizations 11/10/2023 Flu vaccination Care 11/10/2023 Reason Comments 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 M-Bhupendra Young attempt # 1 to schedule M-Power consult Specialty Diagnoses / Procedures Referred By Contac t Referred To Contact Diagnoses Gestational diabetes mellitus (GDM), antepartum, gestational diabetes method of control unspecified Procedures CONSULT TO DIABETES EDUCATION DSME MEDICAL NUTRITION ASSMT&IVNTJ INDIV EACH 15 WA MEDICAL NUTRITION ASSMT&IVNTJ INDIV EACH 15 [place] MEDICAL NUTRITION ASSMT&IVNTJ INDIV EACH 15 [place] MEDICAL NUTRITION ASSMT&IVNTJ INDIV EACH 15 [place] Lg Munson MD [address] [place] [address] Referral ID Status Reason Start Date Expiration Date V isits Requested Visits Authorized [id number] Closed PCP Requested Referral 10/28/2023 10/27/2024 1 1 Reason Onset Date Comments Care 11/24/2023 Specialty Diagnoses / Procedures Referred By Contac t Referred To Contact Diagnoses with uncertain dates in first trimester History of gestational diabetes mellitus Forceps or vacuum extractor delivery 8 weeks gestation of Encounter for supervision of high risk in first trimester, antepartum Procedures MPOWER CONSULT Melony Pineda APRN.[facility] [address] [place] [address] Referral ID Status Reason Start Date Expiration Date Visits Requested Visits Authorized [id number] Ref Not Required PCP Requested Referral 06/06/2023 06/05/2024 1 1 Reason Comments Results Reason Onset Date Comments Care 12/08/2023 Reason Onset Date Comments Care 12/15/2023 Reason Onset Date Comments Care 12/22/2023 INFORMATION SOURCE (unrecogn ized section and content) DATE CREATED AUTHOR 06/13/2021 [facility] Rosangela Chirinos DATE CREATED AUTHOR AUTHOR'S ORGANIZ ATION 03/19/2023 [facility] DATE CREATED AUTHOR AUTHOR'S ORGANIZ ATION 07/04/2023 [facility] ([place] DATE CREATED AUTHOR AUTHOR'S ORGANIZ ATION 10/24/2023 [facility] DATE CREATED AUTHOR AUTHOR'S ORGANIZ ATION 11/12/2023 [facility] DATE CREATED AUTHOR AUTHOR'S ORGANIZ ATION 11/30/2023 [facility] DATE CREATED AUTHOR AUTHOR'S ORGANIZ ATION 12/01/2023 [facility] DATE CREATED AUTHOR AUTHOR'S ORGANIZ ATION 12/08/2023 [facility] DATE CREATED AUTHOR AUTHOR'S ORGANIZ ATION 12/24/2023 [facility] Care Teams (unrecognized sec tion and content) 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 Relationship Specialty Start Date End Date Katrina Roper, TROMBONE SLIDE ASSEMBLER.MASTER ESTHETICIAN [address] [place] [address] PCP - General Family Medicine 06/16/22 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 Relationship Specialty Start Date End Date Katrina Roper, TROMBONE SLIDE ASSEMBLER.MASTER ESTHETICIAN [address] [place] [address] PCP - General Family Medicine 06/16/22 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 Relationship Specialty Start Date End Date Katrina Roper, TROMBONE SLIDE ASSEMBLER.MASTER ESTHETICIAN [address] [place] [address] PCP - General Family Medicine 06/16/22 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 Relationship Specialty Start Date End Date Katrina Roper, TROMBONE SLIDE ASSEMBLER.MASTER ESTHETICIAN [address] [place] [address] PCP - General Family Medicine 06/16/22 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 Relationship Specialty Start Date End Date Katrina Roper, TROMBONE SLIDE ASSEMBLER.MASTER ESTHETICIAN [address] [place] [address] PCP - General Family Medicine 06/16/22 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 Relationship Specialty Start Date End Date Katrina Roper, TROMBONE SLIDE ASSEMBLER.MASTER ESTHETICIAN [address] [place] [phone] PCP - General Family Medicine 06/16/22 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 Relationship Specialty Start Date End Date Katrina Roper APRN.[facility] [address] [facility] [address] [place] [phone] PCP - General Family Medicine 06/16/22 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 Relationship Specialty Start Date End Date Harpreet Shankar MD [address] [place] [address] PCP - General Family Medicine 01/19/23 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 Relationship Specialty Start Date End Date Harpreet Shankar MD [address] [place] [address] PCP - General Family Medicine 01/19/23 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 Relationship Specialty Start Date End Date Harpreet Shankar MD [address] [place] [address] PCP - General Family Medicine 01/19/23 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 Relationship Specialty Start Date End Date Harpreet Shanakr MD [address] [place] [address] PCP - General Family Medicine 01/19/23 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 Relationship Specialty Start Date End Date Harpreet Shankar MD [address] [place] [address] PCP - General Family Medicine 01/19/23 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 Relationship Specialty Start Date End Date Harpreet Shankar MD [address] [place] [address] PCP - General Family Medicine 01/19/23 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 Relationship Specialty Start Date End Date Harpreet Shankar MD [address] [place] [address] PCP - General Family Medicine 01/19/23 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 Relationship Specialty Start Date End Date Harpreet Shankar MD [address] [place] [address] PCP - General Family Medicine 01/19/23 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 Relationship Specialty Start Date End Date Harpreet Shankar MD [address] [place] [address] PCP - General Family Medicine 01/19/23 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 Relationship Specialty Start Date End Date Harpreet Shankar MD [address] [place] [address] PCP - General Family Medicine 01/19/23 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 Relationship Specialty Start Date End Date Harpreet Shankar MD [address] [place] [address] PCP - General Family Medicine 01/19/23 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 Relationship Specialty Start Date End Date Harpreet Shankar [place] [facility] [address] PCP - General Family Medicine 01/19/23 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 Relationship Specialty Start Date End Date Harpreet Shankar MD [address] [place] [address] PCP - General Family Medicine 01/19/23 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 Relationship Specialty [place] [address] [place] [address] PCP - General Family Medicine 01/19/23 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 Relationship Specialty Start Date End Date Harpreet Shankar MD [address] [place] [address] PCP - General Family Medicine 01/19/23 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 Relationship Specialty Start Date End Date Harpreet Shankar MD [address] [place] [address] PCP - General Family Medicine 01/19/23 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 Relationship Specialty Start Date End Date Harpreet Shankar MD [address] [place] [address] PCP - General Family Medicine 01/19/23 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 Relationship Specialty Start Date End Date Harpreet Shankar MD [address] [place] [address] PCP - General Family Medicine 01/19/23 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 Relationship Specialty Start Date End Date Harpreet Shankar MD [address] [place] [id number] PCP - General Family Medicine 01/19/23 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 Relationship Specialty Start Date End Date Harpreet Shankar MD [address] [place] [address] PCP - General Family Medicine 01/19/23 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 Relationship Specialty Start Date End Date Harpreet Shankar MD [address] [place] [address] PCP - General Family Medicine 01/19/23 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 Relationship Specialty Start Date End Date Harpreet Shankar MD [address] [place] [address] PCP - General Family Medicine 01/19/23 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 Relationship Specialty Start Date End Date Harpreet Shankar MD [address] [place] [address] PCP - General Family Medicine 01/19/23 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 Relationship Specialty Start Date End Date Harpreet Shankar MD [address] [place] [address] PCP - General Family Medicine 01/19/23 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 Relationship Specialty Start Date End Date Harpreet Shankar MD [address] [place] [address] PCP - General Family Medicine 01/19/23 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 Relationship Specialty Start Date End Date Harpreet Shankar MD [address] [place] [address] PCP - General Family Medicine 01/19/23 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 Relationship Specialty Start Date End Date Harpreet Shankar MD [address] [place] [address] PCP - General Family Medicine 01/19/23 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 Relationship Specialty Start Date End Date Harpreet Shankar MD [address] [place] [address] PCP - General Family Medicine 01/19/23 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 Relationship Specialty Start Date End Date Harpreet Shankar MD [address] [place] [address] PCP - General Family Medicine 01/19/23 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 Relationship Specialty Start Date End Date Harpreet Shankar MD [address] [place] [address] PCP - General Family Medicine 01/19/23 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 Relationship Specialty Start Date End Date Harpreet Shankar MD [address] [place] [address] PCP - General Family Medicine 01/19/23 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 Relationship Specialty Start Date End Date Harpreet Shankar MD [address] [place] [address] PCP - General Family Medicine 01/19/23 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 Relationship Specialty Start Date End Date Harpreet Shankar MD [address] [place] [address] PCP - General Family Medicine 01/19/23 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 Relationship Specialty Start Date End Date Harpreet Shankar MD [address] [place] [address] PCP - General Family Medicine 01/19/23 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 Relationship Specialty Start Date End Date Harpreet Shankar MD [address] [place] [address] PCP - General [facility] Medicine 01/19/23 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 Relationship Specialty Start Date End Date Harpreet Shankar MD [address] [place] [address] PCP - [facility] Medicine 01/19/23 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 Relationship Specialty Start Date End Date Harpreet Shankar MD [address] [place] [address] PCP - [facility] Medicine 01/19/23 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 Relationship Specialty Start Date End Date Harpreet Shankar MD [address] [place] [address] PCP - [facility] Medicine 01/19/23 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 Relationship Specialty Start Date End Date Harpreet Shankar MD [address] [place] [address] PCP - [facility] Medicine 01/19/23 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 Relationship Specialty Start Date End Date Harpreet Shankar MD [address] [place] [address] PCP - General [facility] Medicine 01/19/23 Camila Power, [facility] [address] [place], [place] [address] [facility] [employer] [facility] 12/19/23 FOR RECORDS PERTAINING TO PATIENTS WHO [...] BE BASED ON THE PRIMARY CLINICAL RECORDS. [facility] [employer] [facility]. provides no warranty or guarantee of the accuracy or completeness of information in this document.
[2023-12-30 11:06] LABS: Syphilis Antibodies Non-reactive
[2023-12-30] MEDS: Sodium Citrate/Citric Acid 30 ML UDC PO (11:48)
[2023-12-30] MEDS: Acetaminophen 500 MG Tablet 1000 MG PO ×2 (11:49→18:23)
[2023-12-30 12:05] LABS: Bedside Glucose 71 mg/dL (74-106)
[2023-12-30] MEDS: Cefazolin 2 GM in Syringe IV (12:10)
--- NOTE | 2023-12-30 12:41 | PLAC_PTH ---
PATHOLOGY RESULTS PATIENT: CHELI STEWART LOC: WP U#:[id number] AGE/SX: 28/F ROOM: [facility] RE12/30/[address]: Dr. Mirna Munson, : 1995 BED: 1 DIS: 01/01/2024 SPEC #: [id number] RECD: 12/30/23 16:30 STATUS: DESIREE ANGELA #: [id number] LEIGHANN: 12/30/23 12:[address]: Mirna Munson DEPT: SURGICAL PATHOLOGY RECD BY: Cecelia Gil ENTERED: 01/02/24 11:19 SP TYPE: PLACENTA Tissues: Placenta, NOS Procedures: Surgery Specimen Level V HEADER OPERATION: Primary section PRE-OP DIAGNOSIS: TWINS TISSUE SUBMITTED: Placenta MICROSCOPIC DIAGNOSIS Dichorionic diamniotic twin placenta: Placenta A (408gm) Umbilical cord - Trivascular with no evidence of inflammation. Placental membranes - No evidence of inflammation. Placental disc - James-Shay change, intervillous congestion and mildly increased intraparenchymal fibrin plaques. Placenta B (460gm) Umbilical cord - Trivascular with no evidence of inflammation. Placental membranes - No pathologic change. Placental disc - James-Shay change and mild intervillous congestion. AM: 01/03/2024 MICROSCOPIC DESCRIPTION Slides are reviewed. GROSS DESCRIPTION SPECIMEN: TWIN PLACENTA / CLINICAL INFORMATION: A. Weight: A - 2.65 kg; B - 2.62 kg B. Gestational Age: 38 weeks C. Sex: A- Female, B- Female PLACENTAL WEIGHT (POST FIXATION): A- 408gm, B- 460gm PLACENTAL DIMENSIONS: A- 16.0x 13.0 x 3.3cm , B- 18.0 x 17.0 x 3.5cm PLACENTAL SHAPE: Usual ovoid PLACENTAL WEIGHT FOR GESTATIONAL AGE: Within 10-99th percentile PLACENTA A: MEMBRANES - Present A. Insertion: Marginal B. Site of rupture from edge: edge of placental disc C. Color of membrane: Briscoe-sacnhez D. Abnormalities: None UMBILICAL CORD - Present A. Color: Briscoe-sanchez B. Insertion: Eccentric C. Length: 30cm D. Diameter: 1.2cm E. Number of vessels: Three F. Abnormalities: None PLACENTA B: MEMBRANES - Present A. Insertion: Marginal B. Site of rupture from edge: 5.3 cm from edge of placental disc C. Color of membrane: Briscoe-sanchez D. Abnormalities: None UMBILICAL CORD - Present A. Color: Briscoe-sanchez B. Insertion: Marginal C. Length: 33cm D. Diameter: 2cm E. Number of vessels: Three F. Abnormalities: None PLACENTAL DISC - Present A. Color of surface: Briscoe-sanchez B. surface abnormalities: None C. Maternal cotyledons: Intact with minimal tears D. Attached retro placental clot: No clot E. Cut surface: Dark red and spongy F. Lesions: None G. Separate clot: Absent SECTIONS SUBMITTED: (Dr. Lawson) 1. Dividing membrane 2. Umbilical cord A 3. Peripheral membrane A 4. Placental disc A 5. Placental disc A 6. Umbilical cord B 7. Peripheral membranes B 8. Placental disc B 9. Placental disc B AM.mr 01/02/2024 TC:5 CPT: 90979 x2
--- NOTE | 2023-12-30 13:24 | HP.PCM.OB_ITS ---
HPI - General General Date of Admission: 12/30/23 Date of Service: 12/30/23 Chief Complaint: scheduled C/S HPI Narrative CHELI STEWART, is a 28 F who presents for elective scheduled C/S with no complaints. [facility] Medical History (Updated 12/30/23 @ 13:[address] Mirna Munson, DO) Wears glasses Bite from insect Low iron Non-smoker 16 weeks gestation of Missed Care and examination of lactating mother Second degree perineal laceration during delivery Vacuum extractor delivery, delivered Jjgi-Qyyxq-Kguzojv disease Uterine anomaly Asthma Gestational diabetes 40 weeks gestation of Home Medications ?Medication ?Instructions ?Recorded ?Last Taken ?Type aqcwzwma-lnq-Sy-FA 1 mg 1 tab PO DAILY 05/27/21 05/26/21 21:30 History tablet vitamin B6-vitamin E-magnesium 1 tab PO PRN PRN nausea 02/16/23 Unknown History tablet acetaminophen 500 mg tablet 1,000 mg (2 x 500 mg) PO Q6H PRN 02/18/23 Unknown Rx (Acetaminophen Extra Strength) fever or pain 10 days #20 tabs doxycycline monohydrate 100 mg 100 mg PO BID 2 days #4 tabs 02/18/23 Unknown Rx tablet ibuprofen 600 mg tablet 600 mg PO Q6H PRN Pain 7 days #30 02/18/23 Unknown Rx TABLETS PNV#14-iron fum-FA#6-vbw-aostipkt 1 cap PO DAILY 12/30/23 12/29/23 History 27 mg iron-1 mg-300 mg-50 mg capsule albuterol sulfate 90 mcg/actuation 2 puff inhalation Q4H PRN PRN 12/30/23 12/23/23 History aerosol inhaler wheezing docusate sodium 100 mg capsule 100 mg PO BID constipation 12/30/23 12/29/23 History ferrous sulfate 325 mg (65 mg 325 mg PO DAILY anemia 12/30/23 12/29/23 History iron) tablet (FeroSul) Allergy/AdvReac Type Severity Reaction Status Date / Time No Known Allergies Allergy Verified 12/30/23 09:57 Surgical History (Updated 05/27/21 @ 21:47 by Olga Wallis) Tyner teeth removed History of tonsillectomy and adenoidectomy Social History Smoking Status: Never smoker History 1 Elective abortions Hx Para 1 Spontaneous abortions Hx # Term Pregnancies Ectopic pregnancies Hx # Pregnancies Multiple births # of living children 1 Vital Signs Vital Signs Vital Signs: 12/30/23 09:51 12/30/23 09:51 12/30/23 09:53 Temperature Temperature Source Pulse Rate 85 Respiratory Rate Blood Pressure 120/74 Blood Pressure Mean BP Systolic 120 BP Diastolic 74 Blood Pressure Source Blood Pressure Position Blood Pressure Location Pulse Ox 97 Oxygen Delivery Method 12/30/23 09:53 12/30/23 09:56 12/30/23 09:56 Temperature Temperature Source Pulse Rate 88 86 Respiratory Rate Blood Pressure Blood Pressure Mean BP Systolic BP Diastolic Blood Pressure Source Blood Pressure Position Blood Pressure Location Pulse Ox 97 Oxygen Delivery Method 12/30/23 10:01 12/30/23 10:01 12/30/23 10:05 Temperature Temperature Source Pulse Rate 87 82 Respiratory Rate Blood Pressure Blood Pressure Mean BP Systolic BP Diastolic Blood Pressure Source Blood Pressure Position Blood Pressure Location Pulse Ox 97 Oxygen Delivery Method 12/30/23 10:05 12/30/23 10:32 Temperature 98.0 F Temperature Source Temporal Pulse Rate 93 Respiratory Rate 18 Blood Pressure 120/74 Blood Pressure Mean 89 BP Systolic BP Diastolic Blood Pressure Source Monitor Blood Pressure Position Semi-Fowlers Blood Pressure Location Left Arm Pulse Ox 97 97 Oxygen Delivery Method Room Air Weight Weight: 197 lb 1.492 oz Body Mass Index (BMI) 37.2 Labs Labs Labs: Blood Type A POSITIVE Antibody Screen NEGATIVE Hct 33.3 % (37-47) L Hgb 10.6 g/dL (12.0-15.0) L Syphilis Total Ab Non-reactive N.gonorrhoeae DNA (JOEL) Negative (Negative) Rhogam given: No Assessment & Plan (1) 39 weeks gestation of : PLAN: Patient requests section given transverse presentation of baby B. Discussed r/b/a section and consent obtained. Ancef pre op. Routine pre op care. (2) Twin : (3) Obesity affecting : (4) GDM, class A1:
[2023-12-30] MEDS: Oxytocin 15 Units/NS 250ml 15 UNITS/250 ML IV.SOLN 83 UNITS IV (14:00)
[2023-12-30] MEDS: Ketorolac 30 MG/ML Syringe IV ×2 (16:24→22:08)
[2023-12-30] MEDS: 0.9% Saline Lock 10 ML Syringe IV ×3 (16:25→22:08)
[2023-12-30 16:31] LABS: Pathology Specimen OB SEE PATHOLOGY REPORT
--- NOTE | 2023-12-30 18:44 | PCM.OPRPT ---
Problems Associated Problem List Diagnoses (1) GDM, class A1: (2) Obesity affecting : (3) Twin : (4) 39 weeks gestation of : Operative Report (Standard) Operative Information Surgery/Procedure Performed: PLTCS via pfannenstiel incision Surgeon: Mirna Munson Date of Procedure: 12/30/23 Procedure Start Time: 12:32 Procedure Stop Time: 13:46 Pre-Operative Diagnosis: 38 week gestation, di/di twin gestation, A1GDM, obesity Post-Operative Diagnosis: As above Select all DRAINS/GRAFTS/IMPLANTS that apply: None Type of Anesthesia: Spinal Special Medications: None Estimated Blood Loss: 1000 mL Fluids Replaced: 1000 mL Specimen collected: Yes Description of specimen(s) removed: Placenta Description of surgery: The patient was taken to the OR where spinal anesthesia was adequate. She was prepped and draped in dorsal supine position with a leftward tilt. A pfanennstiel skin incision was made with the scalpel and carried down to the underlying layer of fascia. The fascia was incised in the midline and extended laterally using ochoa scissors. The fascia was tented up from the rectus muscles with Gladys clamps and the facia was dissected off the rectus muscles with sharp dissection in cephalad and caudad directions. The rectus muscles were bluntly in the midline. The peritoneum was entered bluntly with good visualization of the bladder. The peritoneal incision was extended with traction laterally. A bladder blade was inserted. A low transverse incision was made on the uterus. The uterine incision was extended with cephalad and caudad traction. The membranes were ruptured using Allis clamp for clear fluid and baby A was delivered in vertex presentation without traction, force or delay. A vigorous VFI was delivered and the cord was clamped and cut after a slight delay. Next the membranes of baby B were palpated, and baby B was in footling breech presentation. The feet were held and the membranes were ruptured for clear fluid with an Allis clamp. Baby B was delivered in footling breech presentation with any traction, force or delay. A vigorous VFI was delivered. The cord was clamped and cut after a slight delay. Infants were handed off to awaiting nursery staff right after their delivery. The placentas were removed with manual extraction and sent to pathology. The uterus was exteriorized. The uterus was cleared of all clot and debris. The uterine incision was closed with 1-0 Vicryl in a running locked fashion. The uterus was placed back into the abdomen. Arrista was placed over the lower uterine segement. Hemostasis was noted. The peritoneum was closed with 3-0 Vicryl in a running fashion. The subfascial space was hemostatic. The fascia was closed with Stratafix in a running fashion. The subcutaneous space was irrigated and hemostatic. The subcutaneous space was reapproximated with 3-0 Vicrly. Wesley NEGRETE then closed the skin with 4-0 Monocyl in a subcuticular fashion while I was present on L&D. A dressing was placed and the patient was taken to recovery room in good stable condition. Instrument, sponge and sharp counts were correct x 2. Surgical Findings: VFI x 2. Baby A delivered in vertex presentation. Baby B delivered in footling breech presentation. Clear fluid x 2. Normal appearing uterus and bilateral adnexa. Apgars 8, 9 for baby A. Apgars 9, 9 for baby B. Retail Pharmacy Manager employee relations assistant: Yes Gas Substation Operator: Wesley NEGRETE Tasks completed by first responder: Opening, Closing, Retracting and Other (fundal pressure to deliver infants) Complications Complications: No Admit VTE Documentation VTE Present on Admission: No VTE Mechan Device Prophylaxis: SCD's
[2023-12-30] MEDS: Cefazolin 1 GM/50 ML BAG IV (20:40)
[2023-12-31 00:15] VITALS: BP 101/71; PULSE 76; RESP 16; TEMP 36.1; O2SAT 97
[2023-12-31] MEDS: Acetaminophen 500 MG Tablet 1000 MG PO ×5 (00:27→23:57)
[2023-12-31] MEDS: Enoxaparin 40 MG/0.4 ML Syringe SC (01:54)
[2023-12-31] MEDS: Cefazolin 1 GM/50 ML BAG IV (04:21)
[2023-12-31] MEDS: Ketorolac 30 MG/ML Syringe IV ×2 (04:24→09:53)
[2023-12-31 04:44] LABS: Hematocrit 24.1 % (37-47); Hemoglobin 7.9 g/dL (12.0-15.0); Mean Corp Hgb Conc 32.8 g/dL (32-36); Mean Corpuscular Hgb 29.6 pg (27.0-32.0); Mean Corpuscular Volume 90.3 fL (81-99); Mean Platelet Vol. 10.3 fl (6.2-12.0); Platelet Count 133 K/mm3 (150-450); RBC Distribution Width CV 15.4 % (11.6-14.6); RBC Distribution Width SD 50.1 fl (35.1-43.9); Red Blood Count 2.67 M/mm3 (4.2-5.4); White Blood Count 9.1 K/mm3 (4.4-11.0)
[2023-12-31 04:55] VITALS: BP 88/54; PULSE 74; RESP 16; TEMP 36.3; O2SAT 98
[2023-12-31 05:30] VITALS: BP 103/62
[2023-12-31 06:36] LABS: Bedside Glucose 96 mg/dL (74-106)
[2023-12-31] MEDS: Sodium Ferric Gluconat 250 MG in 0.9% Normal Saline 250 ML 135 MG IV (06:51)
--- NOTE | 2023-12-31 07:14 | PCM.PN.CNM ---
Subjective Subjective Patient seen at bedside. Denies headache, vision changes, SOB or CP. Feeling tired. Has stood at bedside only. Planning on ambulating pandya today. Denies current pain. Objective Data Objective Data Vital Signs: Vital Signs Temp Pulse Resp BP Pulse Ox O2 Del Method 97.4 F L 74 16 103/62 98 Room Air 12/31/23 04:55 12/31/23 04:55 12/31/23 04:55 12/31/23 05:30 12/31/23 04:55 12/31/23 04:55 Oxygen Delivery Method Room Air Weight: 197 lb 1.492 oz Body Mass Index (BMI) 37.2 Intake & Output: Intake and Output for Last 24 Hours 12/29/23 12/30/23 12/31/23 23:59 23:59 23:59 Intake Total 1320 / 1320 50 / 50 Output Total 1450 / 1450 700 / 700 Balance -130 / -130 -650 / -650 Lab / Micro Data Attestation: I reviewed the patient's lab results. 12/31/23 04:30 Labs: Laboratory Results - last 24 hr 12/30/23 10:10: WBC 8.1, RBC 3.70 L, Hgb 10.6 L, Hct 33.3 L, MCV 90.0, MCH 28.6, MCHC 31.8 L, RDW Std Deviation 50.5 H, RDW Coeff of Tyler 15.5 H, Plt Count 144 L, MPV 10.5, Immature Gran % (Auto) 0.700, Neut % (Auto) 67.9, Lymph % (Auto) 22.3, [place] % (Auto) 7.9, Eos % (Auto) 1.1, Baso % (Auto) 0.1, Absolute Neuts (auto) 5.5, Absolute Lymphs (auto) 1.81, Nucleated RBC % 0, Syphilis Total Ab Non-reactive, Blood Type A POSITIVE, Antibody Screen NEGATIVE 12/30/23 11:46: POC Glucose 71 L 12/31/23 04:30: WBC 9.1, RBC 2.67 L, Hgb 7.9 L, Hct 24.1 L, MCV 90.3, MCH 29.6, MCHC 32.8, RDW Std Deviation 50.1 H, RDW Coeff of Tyler 15.4 H, Plt Count 133 L, MPV 10.3 12/31/23 06:12: POC Glucose 96 ROS Eyes Eyes: Denies blurry vision, spots in vision or tunnel vision ENT HEENT: Denies dizziness or headache(s) Cardiovascular Cardiovascular: Reports systems reviewed and no addt'l complaints, except as documented, dizziness and dyspnea Respiratory/Chest Respiratory/Chest: Reports systems reviewed and no addt'l complaints, except as documented Gastrointestinal Gastrointestinal: Reports systems reviewed and no addt'l complaints, except as documented Genitourinary Genitourinary: Reports systems reviewed and no addt'l complaints, except as documented Neurologic Neurologic: Denies abnormal speech, dizziness, headache(s), syncope or vertigo Psychiatric Psychiatric: Reports systems reviewed and no addt'l complaints, except as documented Physical Exam Const alert and no apparent distress General Appearance: cooperative Orientation / Consciousness: awake, oriented to person and oriented to place Exam Limitations: no limitations HEENT normocephalic Eyes General Eye: normal appearance of both eyes Neck full ROM Chest Chest: symmetrical chest wall rise Resp normal respiratory effort, normal air movement and clear to auscultation bilaterally Auscultation: clear to auscultation bilaterally Cardio regular rate and regular rhythm GI normal to inspection, nondistended, normoactive bowel sounds Uterus Palpation: uterus fundus firm Extremity full ROM and no calf tenderness Skin no rashes or lesions noted Neuro oriented x3 Psych mental status grossly normal and activity/motor behavior normal Assessment & Plan (1) GDM, class A1: (2) Obesity affecting : (3) Twin : (4) Status post delivery: (5) Anemia due to blood loss: PLAN: Plan POD 1 Primary C/S for twin gestation support HGB 7.9 down from 10.6 preop Start Venofer 200 mg IV infusion x1 now Repeat CBC in AM Ferrous sulfate 325 mg PO BID Increase ambulation Pain control
[2023-12-31 08:15] VITALS: BP 96/58; PULSE 72; RESP 18; TEMP 36.6; O2SAT 100
[2023-12-31] MEDS: 0.9% Saline Lock 10 ML Syringe IV (09:54)
[2023-12-31] MEDS: Senna/Docusate Sodium 1 Tablet PO (09:54)
[2023-12-31] MEDS: Ferrous Sulfate 325 MG Tablet PO ×2 (12:10→16:13)
[2023-12-31] MEDS: oxyCODONE 5 MG Tablet PO ×3 (13:44→22:37)
[2023-12-31 13:57] VITALS: BP 88/50; PULSE 72; RESP 16; TEMP 36.3; O2SAT 99
[2023-12-31] MEDS: Ibuprofen 600 MG Tablet PO ×2 (16:13→21:59)
--- NOTE | 2023-12-31 17:20 | CASEMGMT ---
Social Work Assessment Labor and Delivery Unit Patient Address: [address] [place] [address] Phone number: Date of Referral: 12/30/2023 Time of Referral: 10:21 Referred By: Mirna Munson Date of Intervention: 12/31/2023 Time of Intervention: 17:20 Reason for Referral: Financial History obtained from: Medical records, mother of baby (MOB) and father of baby (FOB).? Household composition: MOB (Vernell, age 30), FOB (Juan Jose Metz, age 31), MOB?s daughter Candi, age 2.5 years old and MOB and FOB?s twin daughters (Milagros,?baby A?) and (William, ?baby B?), born via on 12/30/2023. Last name of newborns: Isaías. Patient's parent/guardian status: MOB and FOB have been together for ?over a year? and are not but are engaged. ??Both MOB and FOB are actively involved and will be providing care for all children. MOB denied any concerns with domestic violence and described a positive and supportive relationship with the FOB. Medical History: : 4, Para, 1, now 3.? 2 SAB. ARIELLE received routine PNC through [facility] beginning at 8 weeks, 3 days. Apgars: Baby A: 8 and 9, Baby B: 8 and 9. Weight: Baby A: 2.845 kg. Baby B: 2.825 kg. Leadership Program Intern: Dr. Mark Educational Status: MOB and FOB denied any issues or concerns with reading or writing. MOB has some college, no degree. MOB is still enrolled in college at this time. FOB earned his High School Diploma. Financial Status: MOB and FOB reported their income is sufficient to meet the needs of their family at this time however did verbalize food insecurity. 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 FOB is currently employed full-time with [employer].? Infant Supplies: MOB and FOB reported they have all the supplies they need for baby at this time including but not limited to: Car seat, bassinet, pack-n-play, crib, diapers, bottles, breast pump and clothing. Childcare/Caregiver(s): MOB identified herself as the primary caregiver as the FOB has to travel a lot with work however the FOB will assist with caregiving during times when he is home. When MOB returns to work, their neighbor as well as an already secured dragline oiler will assist with childcare.? ?s paternal grandmother (PGM) will also be available to assist with childcare as she lives close by and also has a room set up for her at the house of the MOB and FOB so she can be there frequently to help when needed. Transportation:? MOB and FOB reported they are both licensed drivers and have a reliable vehicle to take baby to and from all medical appointments. No transportation issues identified. Programs/Agencies Involved: MOB and FOB reported they are currently receiving Medicaid through [employer] and plan on applying for food stamps and [place] assistance. ?[place] is also involved. FOB is currently involved in counseling and the MOB is interested in counseling in the near future to assist with stressors related to MOB?s ex-. Children Services/Legal Issues:? Denied. Behavioral Health Issues: ??Mental Health History: MOB denied any history or current mental health. MOB reported PPD after loss of . FOB has a history of Depression, Anxiety, Eating Disorder and Autism. FOB reported he is medicated and symptoms are managed very weel with the medication and FOB is also connected to a mental health therapist. ??Substance Use History: Denied?Family History: Newborns maternal grandmother (MGM) has a history of Bi-Polar, Manic Depression and drug abuse. [place]?s paternal grandmother (MGM) and paternal grandfather (PGF) smoke marijuana. ?Drug Screens: None obtained at the time of this admission. Family/Social Stressors: ?MOB and FOB identified currents stressors with MOB?s ex- as well as stress with ?s MGM. MOB reported she no longer has a relationship with ?s MGM as the MGM and MOB?s ex- are living together.? MOB is uncertain if the MGM and MOB?s ex- are currently in a relationship or not. MOB and FOB did report some financial stressors however described a strong support system that has always been able to help them out when needed. Support Systems: Ample.? MOB and FOB described each other as a strong support and also identified ?s PGM, ?s maternal grandfather (MGF), neighbor and tenriism family as all strong supports. Depression/Shaken Baby/Safe Sleeping: welfare case worker provided verbal and written education on PPD, Safe Sleeping and Shaken Baby.? Parents verbalized an understanding. ??? ASSESSMENT:? MOB and FOB provided consent to social work visit. Upon arrival, MOB was in the hospital bed with baby B and FOB was close by on a couch.? Baby A was sleeping in her crib. Both MOB and FOB? were verbally engaged and cooperative. welfare case worker observed positive interaction between MOB and FOB.? MOB and FOB were very excited when talking about newborns and at one point, MOB began to nurse and was observed to be very attentive and gentle with baby B. At the end of the assessment, social studies teacher requested to speak with the MOB alone which both MOB and FOB were agreeable to.? MOB reported feeling safe at home, denied any previous or current DV with the FOB and denied any drug or alcohol abuse with herself or the FOB or any unmanaged mental health needs.? No concerns identified,? Again, although MOB had previously expressed an issue with food insecurities, both report current ample supports who can assist when needed, especially their tenriism and neighbor who both stated is always cooking food and bringing it over to them.? MOB is planning on utilizing community churches/pantries/food flood to supplement and also plans on applying for food stamps and [place] assistance once discharged. Safe Plan of Care for infant related to substance use: N/A; not needed. ? PLAN:? Newborns to be discharged home when ready.? welfare case worker also provided written information on depression, depression resources and Help Me Grow as well as additional food resources which MOB and FOB accepted. No other services requested or indicated. Summer Gutierrez, ENHANCED ENVIRONMENTAL OPERATOR, REGISTRY NP
[2023-12-31 19:40] VITALS: BP 116/57; PULSE 90; RESP 16; TEMP 36.2; O2SAT 97
--- NOTE | 2023-12-31 23:01 | NURSING ---
Report give to Robyn TEMPLETON, taking over pt care at this time.
[2024-01-01] MEDS: Enoxaparin 40 MG/0.4 ML Syringe SC (01:16)
[2024-01-01 01:20] VITALS: BP 108/63; PULSE 83; RESP 16; TEMP 36.4
[2024-01-01] MEDS: Ibuprofen 600 MG Tablet PO ×2 (04:04→10:11)
[2024-01-01] MEDS: Acetaminophen 500 MG Tablet 1000 MG PO ×2 (06:11→11:43)
[2024-01-01 06:29] LABS: Absolute Neutrophil Count 5.1 X10^3/uL (2.0-7.7); Basophil# 0.03 X10^3/uL; Basophil% 0.4 % (0-1); Eosinophil# 0.12 X10^3/uL; Eosinophils% 1.6 % (0-5); Lymphocyte % 22.8 % (19-41); Mean Corp Hgb Conc 33.3 g/dL (32-36); Mean Corpuscular Hgb 30.2 pg (27.0-32.0); Mean Corpuscular Volume 90.6 fL (81-99); Mean Platelet Vol. 10.2 fl (6.2-12.0); Monocyte# 0.36 X10^3/uL; Monocyte% 4.8 % (0-10); NRBC Flagged by Analyzer 0 % (0-5); Neutrophil % 68.7 % (47-70); Platelet Count 126 K/mm3 (150-450); RBC Distribution Width CV 15.7 % (11.6-14.6); RBC Distribution Width SD 51.5 fl (35.1-43.9); Red Blood Count 2.65 M/mm3 (4.2-5.4); White Blood Count 7.4 K/mm3 (4.4-11.0)
--- NOTE | 2024-01-01 07:58 | PCM.DC.SUM ---
Providers Date of Admission: 12/30/23 Primary Care Physician: HARPREET SHANKAR Reason For Visit: PRIMARY C SECTION Diagnosis Discharge Diagnosis (1) GDM, class A1: Status: Acute Code(s): O24.410 - Gestational diabetes mellitus in , diet controlled (2) Obesity affecting : Status: Acute Code(s): O99.210 - Obesity complicating , unspecified trimester (3) Twin : Status: Acute Code(s): O30.009 - Twin , unspecified number of placenta and unspecified number of amniotic sacs, unspecified trimester (4) Status post delivery: Status: Acute Code(s): Z98.891 - History of uterine scar from previous surgery (5) Anemia due to blood loss: Status: Acute Code(s): D50.0 - Iron deficiency anemia secondary to blood loss (chronic) Plan POD 2 Primary C/S for twin gestation support HGB 8 up from 7.9 yesterday and S/P IV FE Start Venofer 200 mg IV infusion x1 now Ferrous sulfate 325 mg PO BID Desires discharge home with follow up in office Medications at Discharge Home Medications pqticuqf-ahd-[id number]-FA 1 mg tablet 1 tab PO DAILY 05/27/21 vitamin B6-vitamin E-magnesium tablet 1 tab PO PRN PRN nausea 02/16/23 acetaminophen 500 mg tablet (Acetaminophen Extra Strength) 1,000 mg (2 x 500 mg) PO Q6H PRN fever or pain 10 days #20 tabs 02/18/23 doxycycline monohydrate 100 mg tablet 100 mg PO BID 2 days #4 tabs 02/18/23 ibuprofen 600 mg tablet 600 mg PO Q6H PRN Pain 7 days #30 TABLETS 02/18/23 PNV#14-iron fum-[id number]-[id number] 27 mg iron-1 mg-300 mg-50 mg capsule 1 cap PO DAILY 12/30/23 albuterol sulfate 90 mcg/actuation aerosol inhaler 2 puff inhalation Q4H PRN PRN wheezing 12/30/23 docusate sodium 100 mg capsule 100 mg PO BID constipation 12/30/23 ferrous sulfate 325 mg (65 mg iron) tablet (FeroSul) 325 mg PO DAILY anemia 12/30/23 acetaminophen 500 mg tablet 1,000 mg (2 x 500 mg) PO Q6H #0 tabs 01/01/24 ferrous sulfate 325 mg (65 mg iron) tablet (FeroSul) 325 mg PO 1200,1700 #0 tabs 01/01/24 ibuprofen 600 mg tablet 600 mg PO Q6H #0 tabs 01/01/24 sennosides 8.6 mg-docusate sodium 50 mg tablet (Stimulant Laxative Plus) 1 - 2 tab PO DAILY #0 tabs 01/01/24 Hospital Course Operations section Procedures None Summary of Care Provided Minutes Spent on Discharge: 15 Hospital Course: Patient had section. Hospital course was uneventful. Physical Exam Narrative Patient seen at bedside. Denies headache, dizziness, SOB, CP. Ambulating and voiding without difficulty. with minimal support. Desires discharge home. Const alert and no apparent distress General Appearance: cooperative and comfortable Exam Limitations: no limitations HEENT normocephalic Eyes General Eye: normal appearance of both eyes Neck full ROM General: normal visual inspection Chest Chest: symmetrical chest wall rise Resp normal respiratory effort and normal air movement Effort and Inspection: symmetric chest movement Auscultation: clear to auscultation bilaterally Cardio regular rate and regular rhythm GI normal to inspection, nondistended, normoactive bowel sounds Back/Spine normal ROM Extremity full ROM and no calf tenderness General Extremity: normal exam except as noted Skin no rashes or lesions noted Wound Narrative: Dressing is dry and intact. Neuro CN's II-XII intact bilaterally Psych mental status grossly normal Weight / BMI Weight Weight: 197 lb 1.492 oz Body Mass Index (BMI) 37.2 ABG / Lab / Microbiology Data 01/01/24 06:15 Laboratory: Laboratory Results - last 24 hr 01/01/24 06:15: WBC 7.4, RBC 2.65 L, Hgb 8.0 L, Hct 24.0 L, MCV 90.6, MCH 30.2, MCHC 33.3, RDW Std Deviation 51.5 H, RDW Coeff of Tyler 15.7 H, Plt Count 126 L, MPV 10.2, Immature Gran % (Auto) 1.700 H, Neut % (Auto) 68.7, Lymph % (Auto) 22.8, [place] % (Auto) 4.8, Eos % (Auto) 1.6, Baso % (Auto) 0.4, Absolute Neuts (auto) 5.1, Absolute Lymphs (auto) 1.70, Nucleated RBC % 0 D/C Instructions Discharge Diet: No restrictions Discharge Activity: May Drive (2 weeks) and May Shower May resume sexual activity in: 6-8 weeks Weight Bearing Status: Weight bearing as tolerated Lifting Restricted to (Lbs): 25 Call your doctor if your incision/area has: Continuous Slow Oozing, Sudden Increased Bleeding, Increased Pain/ Swelling, Increased Redness, Foul Smelling Discharge and Swelling at the incision site Call your doctor if you observe: Fever of 101 or Higher, Numbness or Tingling, Using more than 1 pad per hour, Shortness of breath, Dizziness, Swelling in the ankles, Chest pain, Calf discomfort and Uncontrolled pain Suture Line Care: Avoid Pulling/Pushing Remove Dressing in: 5 days (Remove yourself or call office and schedule appointment for dressing removal.) DC O2, CPAP, BIPAP Needs Additional Home O2 Discharge instructions: No DC home with Oxygen: No When: 5 days for dressing removal or 2 weeks for post appointment. Meaningful Use Info Meaningful Use Meaningful Use Diagnoses (Choose all that apply): None applicable Ischemic Stroke Statin Dosing Therapy Reference: STATIN DOSE THERAPY REFERENCE: * Patients > 75 years receive moderate or high dose statin therapy. * Patients 75 years or YOUNGER should receive HIGH intensity statin dose unless contraindicated. You will be required to document reason for non-treatment if statin daily dose does not meet guidelines. HIGH DOSE STATIN THERAPY DAILY Atorvastatin > than or = to 40 mg Rosuvastatin > than or = to 20 mg Amlodipine + Atorvastatin > than or = to 2.5/40 mg Ezetimibe + Simvastatin 10/80 mg Simvastatin 80mg Discharge Plan Admission Admit Date/Time: 12/30/23 09:53 Primary Reason for Your Visit: Primary Section Attending Provider: Mirna Munson Primary Care Provider: HARPREET SHANKAR Discharge Orders/Prescriptions Prescriptions: New sennosides-docusate sodium [Stimulant Laxative Plus] 8.6-50 mg Tablet 1 - 2 tab PO DAILY Qty: 0 0RF acetaminophen 500 mg Tablet 1,000 mg PO Q6H Qty: 0 0RF ferrous sulfate [FeroSul] 325 mg (65 mg iron) Tablet 325 mg PO 1200,1700 Qty: 0 0RF ibuprofen 600 mg Tablet 600 mg PO Q6H Qty: 0 0RF Continued albuterol sulfate 90 mcg/actuation HFA aerosol inhaler 2 puff INHALATION Q4H PRN PRN (Reason: wheezing) No Action xvsibhqv-yfc-Yy-FA 1 mg Tablet 1 tab PO DAILY vitamin B6-vitamin E-magnesium Tablet 1 tab PO PRN PRN (Reason: nausea) acetaminophen [Acetaminophen Extra Strength] 500 mg tablet 1,000 mg PO Q6H PRN (Reason: fever or pain) 10 Days Qty: 20 0RF ibuprofen [ibuprofen] 600 MG tablet 600 mg PO Q6H PRN (Reason: Pain) 7 Days Qty: 30 1RF doxycycline monohydrate 100 mg tablet 100 mg PO BID 2 Days Qty: 4 0RF docusate sodium 100 mg capsule 100 mg PO BID ferrous sulfate [FeroSul] 325 mg (65 mg iron) tablet 325 mg PO DAILY PNV #14-iron-[id number] 27 mg iron-1 mg -300 mg-50 mg capsule 1 cap PO DAILY Referrals / Follow Up: HARPREET SHANKAR [Other] Disposition Disposition (needs filled in before D/C Order can be placed): Home, Self Care
[2024-01-01 08:00] VITALS: BP 111/67; PULSE 86; RESP 18; TEMP 36.6; O2SAT 99
[2024-01-01] MEDS: Senna/Docusate Sodium 1 Tablet PO (10:11)
[2024-01-01] MEDS: Ferrous Sulfate 325 MG Tablet PO (11:43)
[2024-01-01] MEDS: oxyCODONE 5 MG Tablet PO (11:47)
--- NOTE | 2024-01-01 11:53 | PCM.DC ---
Discharge Instructions Diet Discharge Diet: No restrictions DC O2, CPAP, BIPAP needs Additional Home O2 Discharge instructions: No Dressing / Incision May resume sexual activity in: 6-8 weeks Weight Bearing Status: Weight bearing as tolerated Dressing / Incision Call your doctor if your incision/area has: Continuous Slow Oozing, Sudden Increased Bleeding, Increased Pain/ Swelling, Increased Redness, Foul Smelling Discharge and Swelling at the incision site Call your doctor if you observe: Fever of 101 or Higher, Numbness or Tingling, Using more than 1 pad per hour, Shortness of breath, Dizziness, Swelling in the ankles, Chest pain, Calf discomfort and Uncontrolled pain Suture Line Care: Avoid Pulling/Pushing Follow Up Care Test Results: Test results from this visit will be discussed in further detail at your follow-up appointment, if applicable. Discharge Plan Admission Admit Date/Time: 12/30/23 09:53 Primary Reason for Your Visit: Primary Section Attending Provider: Mirna Munson Primary Care Provider: HARPREET SHANKAR Instructions Patient Instructions: Caring for [place] Twins, Twins, After a Discharge Orders/Prescriptions Prescriptions: New sennosides-docusate sodium [Stimulant Laxative Plus] 8.6-50 mg Tablet 1 - 2 tab PO DAILY Qty: 0 0RF acetaminophen 500 mg Tablet 1,000 mg PO Q6H Qty: 0 0RF ferrous sulfate [FeroSul] 325 mg (65 mg iron) Tablet 325 mg PO 1200,1700 Qty: 0 0RF ibuprofen 600 mg Tablet 600 mg PO Q6H Qty: 0 0RF oxycodone 5 mg Tablet 5 - 10 mg PO Q4H PRN PRN (Reason: Pain Score 4-10) 3 Days Qty: 14 0RF Continued albuterol sulfate 90 mcg/actuation HFA aerosol inhaler 2 puff INHALATION Q4H PRN PRN (Reason: wheezing) No Action dqydeqno-zru-Ms-FA 1 mg Tablet 1 tab PO DAILY vitamin B6-vitamin E-magnesium Tablet 1 tab PO PRN PRN (Reason: nausea) acetaminophen [Acetaminophen Extra Strength] 500 mg tablet 1,000 mg PO Q6H PRN (Reason: fever or pain) 10 Days Qty: 20 0RF ibuprofen [ibuprofen] 600 MG tablet 600 mg PO Q6H PRN (Reason: Pain) 7 Days Qty: 30 1RF doxycycline monohydrate 100 mg tablet 100 mg PO BID 2 Days Qty: 4 0RF docusate sodium 100 mg capsule 100 mg PO BID ferrous sulfate [FeroSul] 325 mg (65 mg iron) tablet 325 mg PO DAILY PNV #14-iron-FA#7-[id number] 27 mg iron-1 mg -300 mg-50 mg capsule 1 cap PO DAILY Referrals / Follow Up: HARPREET SHANKAR [Other] Melony Pineda CNM [Med Staff - Adv Practice Prof] - Disposition Disposition (needs filled in before D/C Order can be placed): Home, Self Care
[2024-01-01 14:00] VITALS: BP 114/66; PULSE 87; RESP 16; TEMP 36.5; O2SAT 97
== END 2024-01-01 15:40 | disposition home or self-care (01) | DRG 540 ==
PROVIDERS: Advanced Practice Midwife; Admitting Provider Obstetrics & Gynecology; Referring Provider Obstetrics & Gynecology; Visit Provider Obstetrics & Gynecology
PROC: 10D00Z1 Extraction of Products of Conception, Low, Open Approach (ICD-10-PCS; CPT 59514; principal; 2023-12-30 11:45)
DX: O32.8XX2 Maternal care for other malpresentation of fetus, fetus 2 (principal); Z37.2 Twins, both liveborn; O24.420 Gestational diabetes mellitus in childbirth, diet controlled; O99.214 Obesity complicating childbirth; D50.0 Iron deficiency anemia secondary to blood loss (chronic); O30.043 Twin pregnancy, dichorionic/diamniotic, third trimester; O90.81 Anemia of the puerperium; Z3A.38 38 weeks gestation of pregnancy
CPT/HCPCS: 36415; 59050; 82962; 85025; 85027; 86780; 86850; 86900; 86901; 88307; 99221; J7050; J7120; A4216; G0378; J2405; J2916